=== PATIENT | female | born 1955 | race American Indian/Alaskan Native ===

== ENCOUNTER 2016-12-22 12:37 | Inpatient (IN) | payer MEDICAID ==
[2016-12-22 13:59] LABS: BASO % 0.4 % (0.0-2.0); EOS % 0.7 % (0.0-4.0); HEMATOCRIT 38.3 % (34.0-47.0); LYMPH # 0.6 K/uL (1.0-4.3); LYMPH % 8.1 % (20.0-40.0); MEAN CELL VOLUME 102.6 fL (81.0-99.0); MEAN CORPUSCULAR HEMOGLOBIN 33.8 pg (27.0-31.0); MEAN PLATELET VOLUME 8.6 fL (7.2-11.7); MONO # 0.1 K/uL (0.0-0.8); MONO % 1.6 % (0.0-10.0); PLATELET COUNT 161 K/uL (130-400); RED CELL DISTRIBUTION WIDTH 23.3 % (11.5-14.5)
[2016-12-22 14:07] LABS: CHLORIDE 101 mmol/L (98-107)
[2016-12-22 14:08] LABS: SODIUM 136 mmol/L (132-148)
[2016-12-22 14:10] LABS: ALB/GLOB RATIO 0.6 (1.0-2.1); ALKALINE PHOSPHATASE 139 U/L (38-126); AST/SGOT 126 U/L (14-36); BILIRUBIN,TOTAL 9.5 mg/dL (0.2-1.3); CARBON DIOXIDE 17 mmol/L (22-30); GFR AFRICAN-AMERICAN > 60; TOTAL PROTEIN 7.5 g/dL (6.3-8.3)
[2016-12-22 14:11] LABS: ALT/SGPT 79 U/L (9-52); BLOOD UREA NITROGEN 18 mg/dL (7-17); GLUCOSE,RANDOM 95 mg/dL (65-105); PHOSPHOROUS 3.9 mg/dL (2.5-4.5); POTASSIUM 5.4 mmol/L (3.6-5.2)
[2016-12-22] MEDS ORDERED: Iodixanol 320 MG/ML 200 ML BOTTLE IV ONE (14:12)
[2016-12-22 14:28] LABS: T4 2.17 ug/dL (5.5-11.0)
[2016-12-22 14:32] LABS: NEUTROPHIL 85 % (50-75); REACTIVE LYMPHOCYTES 1 % (0-0); TOTAL CELLS COUNTED 100
--- NOTE | 2016-12-22 14:33 | CT ---
PROCEDURE: CT HEAD WITHOUT CONTRAST. HISTORY: Fatigue, confusion, h/o CVA with right deficits. COMPARISON: None available. TECHNIQUE: Axial computed tomography images were obtained through the head/brain without intravenous contrast. Radiation dose: Total exam DLP = 604.97 mGy-cm. FINDINGS: HEMORRHAGE: No intracranial hemorrhage. BRAIN: Encephalomalacia at the left temporal parietal lobe consistent with old left MCA infarct. Moderate atrophy is noted. Oolv-[id number]-[id number] white matter changes likely related to chronic microvascular ischemic disease. VENTRICLES: Slightly dilated ventricles. Persistent septum bolus ED on is also noted. CALVARIUM: Unremarkable. PARANASAL SINUSES: Unremarkable as visualized. No significant inflammatory changes. MASTOID AIR CELLS: Unremarkable as visualized. No inflammatory changes. OTHER FINDINGS: None. IMPRESSION: No evidence of acute intracranial hemorrhage acute territorial infarct mass effect or midline shift. Moderate-size encephalomalacia at the left temporal parietal lobe suggestive of chronic left MCA territory infarct. Moderate atrophy and white matter changes.
[2016-12-22 14:40] LABS: INR 1.7
[2016-12-22 14:41] LABS: THYROID STIMULATING HORMONE 2.03 mIU/L (0.46-4.68)
[2016-12-22 15:03] LABS: MAGNESIUM 2.1 mg/dL (1.6-2.3)
[2016-12-22] MEDS ORDERED: Sodium Chloride 0.9% 1,000 ML IV ONE (15:23)
[2016-12-22 15:53] LABS: RBC URINE 1 /hpf (0-3); URINE BACTERIA RARE (<OCC); URINE BILIRUBIN 1+ (NEGATIVE); URINE BLOOD NEGATIVE (NEGATIVE); URINE COLOR Amber (YELLOW); URINE GLUCOSE (UA) NORMAL (Normal); URINE KETONE NEGATIVE (NEGATIVE); URINE LEUKOCYTE ESTERASE 2+ Leu/uL (Negative); URINE PROTEIN 1+ mg/dL (NEGATIVE); WBC CLUMPS OCC /hpf; WBC URINE 11 /hpf (0-5)
[2016-12-22 15:55] LABS: BILIRUBIN,DIRECT 7.2 mg/dL (0.0-0.4)
[2016-12-22 16:18] LABS: ABG ALLEN TEST A; DRAW SITE LR
--- NOTE | 2016-12-22 16:35 | CT ---
PROCEDURE: CT Abdomen and Pelvis without intravenous contrast HISTORY: Pain, jaundice COMPARISON: None. TECHNIQUE: Without contrast.. Contrast Dose: 0 Radiation dose: Total exam DLP = 462.71 mGy-cm. FINDINGS: LOWER THORAX: Small to moderate right pleural effusion. Minimal right lower lobe compressive atelectasis. AICD noted. LIVER: Mild hepatomegaly. Diffusely diminished attenuation of the liver consistent with fatty infiltration. No mass. No biliary dilatation. GALLBLADDER AND BILE DUCTS: Unremarkable. PANCREAS: Unremarkable. No gross lesion or ductal dilatation. SPLEEN: Normal size. 2.3 cm with rounded low-attenuation lesion, nonspecific. Most likely hemangioma or lymphangioma. ADRENALS: Unremarkable. No mass. KIDNEYS AND URETERS: Numerous small peripheral bilateral rounded hyperdense lesions most likely hyperdense cysts. Correlate with ultrasound. Probable low-density cyst, 1.1 cm, left lower pole. No calculus or hydronephrosis. VASCULATURE: Unremarkable. No aortic aneurysm. BOWEL: Unremarkable. No obstruction. No gross mural thickening. APPENDIX: Unremarkable. Normal appendix. PERITONEUM: Trace ascites. Mild nonspecific presacral edema. LYMPH NODES: Unremarkable. No enlarged lymph nodes. BLADDER: Unremarkable. REPRODUCTIVE: 1.5 cm partially exophytic rounded hyperdense lesion arising from the anterior uterus, likely fibroids. Correlate with ultrasound. No pelvic mass. BONES: No acute fracture. OTHER FINDINGS: Mild generalized anasarca. IMPRESSION: Small to moderate right pleural effusion. Trace ascites. Nonspecific presacral edema. Mild generalized anasarca. Mild hepatomegaly with fatty infiltration of the liver. No evidence of biliary obstruction. No evidence of cholecystitis. Mild nonspecific presacral edema, possibly related generalized anasarca. Additional minor findings as above.
[2016-12-22] MEDS ORDERED: cefTRIAXone IV 1 gm in Dextros 50 ML IVPB ONE ×2 (17:00→18:27)
--- NOTE | 2016-12-22 17:00 | RAD ---
PROCEDURE: CHEST RADIOGRAPH, 1 VIEW HISTORY: SOB COMPARISON: None available. FINDINGS: LUNGS: Extensive right upper lobe opacity consistent with pneumonia. No volume loss. Left base obscured by AICD module. PLEURA: No pneumothorax or pleural fluid seen. CARDIOVASCULAR: AICD. No cardiomegaly. OSSEOUS STRUCTURES: No significant abnormalities. VISUALIZED UPPER ABDOMEN: Normal. OTHER FINDINGS: None. IMPRESSION: Extensive right upper lobe infiltrate.
[2016-12-22] MEDS ORDERED: Azithromycin 500mg/250ML NS 250 ML IVPB SCH (17:15)
--- NOTE | 2016-12-22 17:28 | C.PDOC ---
Time Seen by Provider: 12/22/16 13:16 Chief Complaint (Nursing): Weakness/Neurological Deficit History Per: Patient, Family Onset/Duration Of Symptoms: Days (about 1 month), Gradual Current Symptoms Are (Timing): Worse Associated Symptoms Preceding Syncopal Episode: Lightheadedness, Worse With Standing Possible Causative Factor(s): Decreased PO Intake Severity: Severe Additional History Per: Prior Records - Symptoms Of CVA Associated Symptoms: Decreased Ability To Walk Recent Head Trauma: No Past Medical History Reviewed: Historical Data, Nursing Documentation, Vital Signs Vital Signs: Last Vital Signs Temp 97.1 F L 12/22/16 16:48 Pulse 87 12/22/16 16:48 Resp 22 12/22/16 16:48 BP 125/85 12/22/16 16:48 Pulse Ox 97 12/22/16 16:48 - Medical History PMH: CVA (affecting right side of body) Other PMH: Lupus Surgical History: Pacemaker Family History: States: Unknown Family Hx - Social History Hx Alcohol Use: No Hx Substance Use: No - Immunization History Hx Tetanus Toxoid Vaccination: No Hx Influenza Vaccination: No Hx Pneumococcal Vaccination: No Review Of Systems Except As Marked, All Systems Reviewed And Found Negative. Constitutional: Positive for: Fever (?), Weakness, Malaise Cardiovascular: Negative for: Chest Pain Respiratory: Positive for: Shortness of Breath. Negative for: Hemoptysis Gastrointestinal: Positive for: Abdominal Pain Musculoskeletal: Negative for: Neck Pain Skin: Negative for: Rash Neurological: Negative for: Seizures Physical Exam - Physical Exam Appears: Chronically Ill Skin: Warm, Dry, Jaundice Head: Atraumatic, Normacephalic Eye(s): bilateral: PERRL, EOMI, Scleral Icterus Oral Mucosa: Dry Neck: Normal ROM, Supple Cardiovascular: Rhythm Regular Respiratory: Normal Breath Sounds, Other (tachypnea) Gastrointestinal/Abdominal: Soft, Tenderness (nonspecific) Extremity: Normal ROM Neurological/Psych: No Normal Motor (decreased on right side compaired to left ( old)), No Normal Sensation (decreased on right side compaired to left (old)) Disoriented To: Time Gait: Unable To Assess ED Course And Treatment - Laboratory Results Result Diagrams: 12/22/16 13:51 12/22/16 13:51 Lab Interpretation: Abnormal Interpretation Of Abnormal: Direct hyperbilirubinemia. ECG: Interpreted By Me, Viewed By Me ECG Rhythm: Sinus Rhythm, Nonspecific Changes ECG Interpretation: No Acute Changes Rate From EC O2 Sat by Pulse Oximetry: 92 Pulse Ox Interpretation: Abnormal Interpretation Of Abnormal: Hypoxia on RA - Radiology CXR: Interpreted by Me, Viewed By Me CXR Interpretation: Yes: Infiltrates (RUL consolidation) - CT Scan/US CT head Other Rad Studies (CT/US): Read By Radiologist, Radiology Report Reviewed CT/US Interpretation: IMPRESSION: No evidence of acute intracranial hemorrhage acute territorial infarct mass effect or midline shift. Moderate-size encephalomalacia at the left temporal parietal lobe suggestive of chronic left MCA territory infarct. Moderate atrophy and white matter changes. CT abd/pelv Other Rad Studies (CT/US): Read By Radiologist, Radiology Report Reviewed CT/US Interpretation: IMPRESSION: Small to moderate right pleural effusion. Trace ascites. Nonspecific presacral edema. Mild generalized anasarca. Mild hepatomegaly with fatty infiltration of the liver. No evidence of biliary obstruction. No evidence of cholecystitis. Mild nonspecific presacral edema, possibly related generalized anasarca. Additional minor findings as above. Progress - Interventions Interventions:: Observation, Intravenous fluid, Oxygen - Medications Administered Intravenous: Other (Abx) - Data Reviewed Data Reviewed: Lab, Diagnostic imaging, EKG, Old records - Patient Status Patient status: Partially improved - Continuity of Care Discussed patient case with:: Patient, Family-HIPPA compliant, ED Nurse, Covering for PMD - Patient Plan Patient Plan: Admission Disposition Discussed With : Jarrod Rice Comment: He accepted pt on hospitalist service. Doctor Will See Patient In The: Hospital Counseled Patient/Family Regarding: Studies Performed, Diagnosis - Disposition Disposition: HOSPITALIZED Disposition Time: 17:32 Condition: SERIOUS - Clinical Impression Clinical Impression: Pneumonia, Jaundice, Weakness
[2016-12-22] MEDS ORDERED: Azithromycin 500mg/250ML NS 250 ML IVPB ONE (18:28)
--- NOTE | 2016-12-22 19:39 | CP.PCM.HP ---
History of Present Illness - History of Present Illness History of Present Illness: CC: "I'm here because of my pacemaker, short of breath" 61 year old female with PMHx of lupus, pacemaker, stroke with left sided deficit , HTN presents to the emergency room with shortness of breath. Patient was brought in by a friend, who is not at bedside at this time. History as per patient, who is a poor historian. Admits to SOB and dry cough for unknown duration of time. She admits to "having trouble" with her stomach for the past 3 -4 months. She states she has been having a lot of nausea and vomiting after she eats. Denies fevers, chills. She also has scratches on her arms from her cat that lives in her apartment with her. She has 3 children who she is estranged from. She has no chest pain or palpitations today. Admits to abdominal pain from time to time. She also reports pain when she urinates. PMD: Dr. Marcos Personal Cardio: Dr. Cami Rubio Personal Rheum: Dr. Artemio Reynaga PMHx:upus, pacemaker, stroke with left sided deficit, HTN. SHx: denies Family Hx: denies Allergies: NKDA Social: Denies tobacco, alcohol, illicit drug use Medications: Folic Acid, MV, Gabapentin 100 mg PO BID, Omeprazole 20 mg PO daily , Tramadol 50 mg PO BID, Sertraline 50 mg PO daily, Amlodipine 5 mg PO daily. Present on Admission - Present on Admission Any Indicators Present on Admission: No Review of Systems - Constitutional Constitutional: Weakness. absent: Chills, Fever - EENT Eyes: absent: Blurred Vision, Change in Vision - Cardiovascular Cardiovascular: Dyspnea, Dyspnea on Exertion. absent: Chest Pain, Chest Pain with Activity, Diaphoresis - Respiratory Respiratory: Cough, Dyspnea. absent: Hemoptysis, Wheezing - Gastrointestinal Gastrointestinal: Abdominal Pain, Nausea, Vomiting. absent: Bloating, Constipation, Diarrhea - Genitourinary Genitourinary: Difficulty Urinating, Dysuria - Musculoskeletal Musculoskeletal: absent: Back Pain, Numbness, Tingling - Integumentary Integumentary: absent: Rash, Wounds - Neurological Neurological: Frequent Falls, Weakness. absent: Dizziness, Headaches, Syncope - Psychiatric Psychiatric: absent: Anxiety - Endocrine Endocrine: Fatigue. absent: Palpitations - Hematologic/Lymphatic Hematologic: absent: Easy Bleeding, Easy Bruising Past Patient History - Past Social History Smoking Status: Never Smoked - CARDIAC Hx Pacemaker: Yes - NEUROLOGICAL HX Cerebrovascular Accident: Yes (RT side deficit) - PSYCHIATRIC Hx Substance Use: No Meds Allergies/Adverse Reactions: Allergies Allergy/AdvReac Type Severity Reaction Status Date / Time No Known Allergies Allergy Verified 12/22/16 13:20 Physical Exam - Constitutional Appears: No Acute Distress, Older Than Stated Age, Chronically Ill - Head Exam Head Exam: NORMAL INSPECTION, NORMOCEPHALIC - Eye Exam Eye Exam: EOMI, Normal appearance - ENT Exam ENT Exam: Mucous Membranes Moist - Neck Exam Neck exam: Positive for: Full Rom, Normal Inspection - Respiratory Exam Respiratory Exam: Clear to Auscultation Bilateral, NORMAL BREATHING PATTERN - Cardiovascular Exam Cardiovascular Exam: REGULAR RHYTHM, +S1, +S2 - GI/Abdominal Exam GI & Abdominal Exam: Normal Bowel Sounds, Soft, Tenderness. absent: Distended, Guarding - Extremities Exam Extremities exam: Positive for: full ROM, normal inspection. Negative for: pedal edema - Back Exam Back exam: NORMAL INSPECTION - Neurological Exam Neurological exam: Alert, Oriented x3 - Psychiatric Exam Psychiatric exam: Normal Affect, Normal Mood - Skin Skin Exam: Dry, Normal Color, Warm Additional comments: scratches over b/l forearms and upper back (from patient's cat) Results - Vital Signs Recent Vital Signs: Last Vital Signs Temp 97.1 F L 12/22/16 16:48 Pulse 87 12/22/16 16:48 Resp 22 12/22/16 16:48 BP 125/85 12/22/16 16:48 Pulse Ox 92 L 12/22/16 17:33 - Labs Result Diagrams: 12/22/16 13:51 12/22/16 13:51 Assessment & Plan (1) Pneumonia Assessment and Plan: CXR on admission showed extensive RUL infiltrate. Patient with PCO2 of 18 on admission and Tachypneic. Breathing and sats improved on NC. Patient with history of vomiting, consider aspiration pneumonia. Continue NC. Azithromycin IVPB Rocephin IVPB Status: Acute (2) Dyspnea Assessment and Plan: Sat in the 90's on room air, improved on NC. Likely secondary to pneumonia. f/u YOUSUF panel EKG on admission showed Sinus Rhythm [address] Changes. Patient with elevated ProBNP. f/u 2D ECHO Status: Acute (3) Weakness Assessment and Plan: Likely debilitated from ongoing infectious process. Patient also with history of CVA and residual weakness. States she cannot ambulate without assistance. PT/OT Fall risk protocol Status: Acute (4) Hyperbilirubinemia Assessment and Plan: T. Hollis of 9.5, Direct Hollis of 7.2, GGT 126 AST 126/ALT 79 on admission. GI consult placed- Dr. Prasad- help appreciated NPO for now f/u RUQ US with doppler Status: Acute (5) Abdominal pain Assessment and Plan: GI consult placed- Dr. Prasad- help appreciated NPO for now T. Hollis of 9.5, Direct Hollis of 7.2, GGT 126 AST 126/ALT [address] Abdomen and Pelvis w/o Po or IV contrast : Small to moderate right pleural effusion. Trace ascites. Nonspecific presacral edema. Mild generalized anasarca. Mild hepatomegaly with fatty infiltration of the liver. No evidence of biliary obstruction. No evidence of cholecystitis. Mild nonspecific presacral edema, possibly related generalized anasarca. Additional minor findings as above. f/u RUQ US with doppler Status: Acute (6) Nausea & vomiting Assessment and Plan: Zofran PRN Status: Acute (7) Pacemaker Assessment and Plan: Patient with unknown cardiac history. Pro BNP elevated. f/u ECHO Patient follows with Dr. Rubio as outpatient. Status: Acute (8) Lupus (systemic lupus erythematosus) Assessment and Plan: Resume home meds: Plaquenil 200 mg PO BID MV Folic Acid 1 mg PO daily Patient follows with Dr. Reynaga as outpatient. Status: Acute (9) Abnormal thyroid blood test Assessment and Plan: T3 and T3 are low on admission with normal TSH. Follow repeat thyroid function tests in the AM. Status: Acute (10) HTN (hypertension) Assessment and Plan: Resume home med: Amlodipine 5 mg PO daily Status: Acute (11) Prophylactic measure Assessment and Plan: Heparin SC Q8H Pepcid 20 mg PO daily Status: Acute
[2016-12-22 21:26] LABS: ALCOHOL SERUM < 10 mg/dl (0-10)
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
[2016-12-23 07:23] LABS: BASO % 0.6 % (0.0-2.0); LYMPH % 16.5 % (20.0-40.0); MEAN CELL VOLUME 102.4 fL (81.0-99.0); MEAN CORPUSCULAR HEMOGLOBIN 33.6 pg (27.0-31.0); MEAN CORPUSCULAR HGB CONC 32.8 g/dL (33.0-37.0); MEAN PLATELET VOLUME 8.9 fL (7.2-11.7); MONO # 0.4 K/uL (0.0-0.8); MONO % 7.3 % (0.0-10.0); NRBC % 0.7 % (0.0-2.0); RED CELL DISTRIBUTION WIDTH 22.9 % (11.5-14.5); WHITE BLOOD COUNT 5.9 K/uL (4.8-10.8)
[2016-12-23 07:29] LABS: CHLORIDE 105 mmol/L (98-107); POTASSIUM 4.6 mmol/L (3.6-5.2); SODIUM 137 mmol/L (132-148)
[2016-12-23 07:31] LABS: ALB/GLOB RATIO 0.7 (1.0-2.1); AST/SGOT 120 U/L (14-36); BILIRUBIN,TOTAL 8.2 mg/dL (0.2-1.3); CARBON DIOXIDE 14 mmol/L (22-30); GFR AFRICAN-AMERICAN > 60; TOTAL PROTEIN 6.5 g/dL (6.3-8.3)
[2016-12-23 07:32] LABS: ALKALINE PHOSPHATASE 121 U/L (38-126); ALT/SGPT 78 U/L (9-52); BLOOD UREA NITROGEN 24 mg/dL (7-17); CALCIUM 7.9 mg/dl (8.6-10.4); GLUCOSE,RANDOM 103 mg/dL (65-105); PHOSPHOROUS 4.6 mg/dL (2.5-4.5)
[2016-12-23 08:44] LABS: FT3 2.74 pg/mL (2.77-5.27)
[2016-12-23 08:58] LABS: THYROID STIMULATING HORMONE 1.34 mIU/L (0.46-4.68)
[2016-12-23] MEDS ORDERED: Iodixanol 320 MG/ML 100 ML BOTTLE IV ONE (09:03)
--- NOTE | 2016-12-23 09:10 | CP.PCM.PN ---
<Vimal Bolden - Last Filed: 12/23/16 15:28> Subjective - Date & Time of Evaluation Date of Evaluation: 12/23/16 Time of Evaluation: 09:08 - Subjective Subjective: PGY-1 note for medicine service Pt seen and examined at bedside. She was observed to be on BiPAP and resting comfortably. Pt states that she feels much improved since yesterday. She no longer feels short of breath. She also says that currently her stomach does not hurt, but admits that it usually gets worse with eating. Denies any fevers, chills, chest pain, sob, nausea or vomiting. Objective - Vital Signs/Intake and Output Vital Signs (last 24 hours): Temp Pulse Resp BP Pulse Ox 97.2 F L 75 18 124/50 L 100 12/23/16 08:29 12/23/16 08:29 12/23/16 08:29 12/23/16 08:29 12/23/16 08:29 - Medications Medications: Current Medications Amlodipine Besylate (Norvasc) 5 mg PO DAILY [facility] Famotidine (Pepcid) 20 mg PO BID [facility] Folic Acid (Folic Acid) 1 mg PO DAILY [facility] Gabapentin (Neurontin) 100 mg PO BID [facility] Heparin Sodium (Porcine) (Heparin) 5,000 units SC Q8 [facility] Last Admin: 12/23/16 06:21 Dose: 5,000 units Hydroxychloroquine Sulfate (Plaquenil) 200 mg PO BID [facility] Azithromycin (Zithromax 500mg In Ns Addvantage) 250 mls @ 166.667 mls/hr IVPB STAT [facility] Last Admin: 12/22/16 18:45 Dose: 166.667 mls/hr Sodium Chloride (Sodium Chloride 0.9%) 1,000 mls @ 60 mls/hr IV .[id number] [facility] Azithromycin 500 mg/ Sodium (Chloride) 250 mls @ 250 mls/hr IVPB DAILY [facility] Ceftriaxone Sodium 1 gm/ (Sodium Chloride) 100 mls @ 100 mls/hr IVPB DAILY [facility] Multivitamins (Hexavitamin) 1 tab PO DAILY [facility] Ondansetron HCl (Zofran Inj) 4 mg IVP Q6 PRN PRN Reason: Nausea/Vomiting Sertraline HCl (Zoloft) 50 mg PO DAILY [facility] - Labs Labs: 12/23/16 06:50 12/23/16 06:50 PT 18.8 SECONDS (9.7-12.2) H 12/22/16 14:29 INR 1.7 12/22/16 14:29 APTT 26 SECONDS (21-34) 12/22/16 14:29 - Constitutional Appears: Non-toxic, No Acute Distress - Head Exam Head Exam: ATRAUMATIC, NORMOCEPHALIC - Eye Exam Eye Exam: Normal appearance Pupil Exam: PERRL - ENT Exam ENT Exam: Mucous Membranes Moist - Respiratory Exam Respiratory Exam: Clear to Ausculation Bilateral, NORMAL BREATHING PATTERN - Cardiovascular Exam Cardiovascular Exam: +S1, +S2 - GI/Abdominal Exam GI & Abdominal Exam: Soft, Normal Bowel Sounds - Neurological Exam Neurological Exam: Alert, Awake - Skin Skin Exam: Dry, Warm Assessment and Plan - Assessment and Plan (Free Text) Assessment: Pneumonia - CXR on admission showed extensive RUL infiltrate. - Patient with PCO2 of 18 on admission and Tachypneic. - Breathing and sats improved on NC. - Patient with history of vomiting, consider aspiration pneumonia. - Continue NC as needed - Azithromycin IVPB - Rocephin IVPB Abdominal pain - GI consult placed- Dr. Prasad- help appreciated - Per GI - Hepatitis panel, AMA (r/o PBC), Anti-SM and LKM Ab (r/o autoimmune hep). Will consider EUS if work up is negative and direct bili stays elevated - FLD - T. Hollis of 9.5, Direct Hollis of 7.2, GGT 126 AST 126/ALT 79 on admission. - Repeat AM labs show elevated T Bili at 8.2 still - CT Abdomen and Pelvis w/o Po or IV contrast : Small to moderate right pleural effusion. Trace ascites. Nonspecific presacral edema. Mild generalized anasarca. Mild hepatomegaly with fatty infiltration of the liver. No evidence of biliary obstruction. No evidence of cholecystitis. Mild nonspecific presacral edema, possibly related generalized anasarca. Additional minor findings as above. - RUQ US 12/23 - Right renal cysts. Incidental note is made of small right pleural effusion. Echogenic liver may be seen in setting of hepatic parenchymal disease or fatty infiltration. Small perihepatic ascites. Small fluid is noted by the gallbladder fossa. Gallbladder wall thickening/ pericholecystic edema without evidence of gallstones. Negative sonographic Hutchinson's sign as assessed by the hip hop performers. No portal vein thrombosis UTI - UA positive. Patient is symptomatic. - urine Cx /7 - gram neg rods - Rocephin IVPB Dyspnea - Sat in the 90's on room air, improved on NC. - Likely secondary to pneumonia. - YOUSUF panel negative - EKG on admission showed Sinus Rhythm [address] Changes. - Patient with elevated ProBNP. - f/u 2D ECHO - pending read Weakness - Likely debilitated from ongoing infectious process. - Patient also with history of CVA and residual weakness. States she cannot ambulate without assistance. - PT/OT - recommends TCU or [facility] - Fall risk protocol - Head CT: No evidence of acute intracranial hemorrhage acute territorial infarct mass effect or midline shift. Moderate-size encephalomalacia at the left temporal parietal lobe suggestive of chronic left MCA territory infarct. Moderate atrophy and white matter changes. Nausea & vomiting - Zofran PRN Pacemaker - Patient with unknown cardiac history. - Pro BNP elevated. - ECHO pending read - Patient follows with Dr. Rubio ([phone]) as outpatient. Hx of Lupus (systemic lupus erythematosus) - Resume home meds: Plaquenil 200 mg PO BID [facility] Folic Acid 1 mg PO daily - Patient follows with Dr. Reynaga as outpatient. Abnormal thyroid blood test - T3 and T3 are low on admission with normal TSH. - Follow repeat thyroid function tests in the AM. HTN (hypertension) - Resume home med: - Amlodipine 5 mg PO daily Prophylactic measure - Heparin SC Q8H - Pepcid 20 mg PO daily <Jarrod Rice - Last Filed: 12/24/16 07:49> Objective - Vital Signs/Intake and Output Vital Signs (last 24 hours): Temp Pulse Resp BP Pulse Ox 97.3 F L 81 20 106/75 100 12/23/16 23:10 12/23/16 23:30 12/23/16 23:10 12/23/16 23:10 12/23/16 23:10 - Medications Medications: Current Medications Amlodipine Besylate (Norvasc) 5 mg PO DAILY [facility] Last Admin: 12/23/16 10:22 Dose: 5 mg Famotidine (Pepcid) 20 mg PO BID [facility] Last Admin: 12/23/16 17:56 Dose: 20 mg Folic Acid (Folic Acid) 1 mg PO DAILY [facility] Last Admin: 12/23/16 10:22 Dose: 1 mg Gabapentin (Neurontin) 100 mg PO BID [facility] Last Admin: 12/23/16 17:56 Dose: 100 mg Heparin Sodium (Porcine) (Heparin) 5,000 units SC Q8 [facility] Last Admin: 12/24/16 05:33 Dose: 5,000 units Hydroxychloroquine Sulfate (Plaquenil) 200 mg PO BID [facility] Last Admin: 12/23/16 17:56 Dose: 200 mg Azithromycin 500 mg/ Sodium (Chloride) 250 mls @ 250 mls/hr IVPB DAILY [facility] Last Admin: 12/23/16 11:15 Dose: 250 mls/hr Ceftriaxone Sodium 1 gm/ (Sodium Chloride) 100 mls @ 100 mls/hr IVPB DAILY [facility] Last Admin: 12/23/16 10:21 Dose: 100 mls/hr Multivitamins (Hexavitamin) 1 tab PO DAILY [facility] Last Admin: 12/23/16 10:22 Dose: 1 tab Ondansetron HCl (Zofran Inj) 4 mg IVP Q6 PRN PRN Reason: Nausea/Vomiting Last Admin: 12/23/16 12:39 Dose: 4 mg Sertraline HCl (Zoloft) 50 mg PO DAILY [facility] Last Admin: 12/23/16 10:23 Dose: 50 mg - Labs Labs: 12/24/16 07:04 12/23/16 06:50 PT 18.8 SECONDS (9.7-12.2) H 12/22/16 14:29 INR 1.7 12/22/16 14:29 APTT 26 SECONDS (21-34) 12/22/16 14:29 Attending/Attestation - Attestation I have personally seen and examined this patient.: Yes I have fully participated in the care of the patient.: Yes I have reviewed all pertinent clinical information, including history, physical exam and plan: Yes Notes (Text): Patient with history of SLE (reportedly causing only arthralgias, meds unclear, will call pharmacy), previous CVA (unclear time frame), s/p AICD placement (2007 ), presented with sob, weakness and abd pain, found to have RUL PNA and grossly abnormal LFT's; Was on BIPAP overnight due to sob but indication for it is unclear; appears comfortable this morning on NC; Poor historian; has appointment cards with dates from last year, nothing since past 4 months; unclear f/u with PMD and space technologist, will call them; CAP being treated with ceftriaxone and zithromax; GI consult appreciated regarding hyperbilirubinemia (direct) as well as elevated transaminases and lipase; Abd US not showing any biliary obstruction or CBD dilatation; patent portal vein; patient should ideally have MRCP per GI but AICD is contraindication, may need endoscopic US to better assess for obstructing mass; also high on differential is congestive hepatopathy (echo report pending but measurements show low EF and high RVSP); Functional status is also questionable with patient reporting living alone but gets help from a friend to even walk; -continue abx -continue plaquenil (doesn't report being on methotrexate but has recent prescription receipt, will ascertain further) -stop IVF, will consider starting low dose diuretics -PT eval -cardio consult
[2016-12-23 09:20] LABS: T3 UPTAKE > 65.0 % (23.0-41.0)
[2016-12-23] MEDS: Sodium Chloride 0.9% 1,000 ML IV SCH ×2 (09:29→11:10)
[2016-12-23] MEDS ORDERED: Multiple Vitamins Tab PO SCH (10:00)
[2016-12-23] MEDS: Multiple Vitamins Tab PO SCH (10:22)
--- NOTE | 2016-12-23 10:45 | US ---
HISTORY: Arabella Shafer 11, Hx of stroke COMPARISON: CT abdomen and pelvis without oral or IV contrast performed 12/22/16 TECHNIQUE: Sonographic evaluation of the right upper quadrant of the abdomen. FINDINGS: LIVER: Measures 15.5 cm in length. Echogenic liver may be seen in setting of hepatic parenchymal disease or fatty infiltration. No focal hepatic mass evident. The main portal vein appears patent with normal directional flow. No intrahepatic bile duct dilatation. Small perihepatic ascites. GALLBLADDER: No gallstones. No gallbladder wall thickening. Mild gallbladder wall thickening/ edema measuring approximately 5 mm. Negative sonographic Hutchinson's sign as assessed by the biomedical instrument technician. COMMON BILE DUCT: Measures 4 mm. PANCREAS: The pancreas is not well visualized. RIGHT KIDNEY: Measures 10.4 x 3.8 x 4.3 cm. No obstructing calculus or hydronephrosis. Renal cysts. For example: 0.7 x 0.6 x 0.6 cm midpole cyst. Within the lower pole, 0.8 x 0.6 x 0.6 cm and 1.2 x 1.0 x 1.1 cm cysts. AORTA: Limited visualization appears grossly unremarkable. IVC: Limited visualization appears grossly unremarkable. OTHER FINDINGS: Incidental note is made of small right pleural effusion. IMPRESSION: Right renal cysts. Incidental note is made of small right pleural effusion. Echogenic liver may be seen in setting of hepatic parenchymal disease or fatty infiltration. Small perihepatic ascites. Small fluid is noted by the gallbladder fossa. Gallbladder wall thickening/ pericholecystic edema without evidence of gallstones. Negative sonographic Hutchinson's sign as assessed by the biomedical instrument technician.
[2016-12-23] MEDS: Azithromycin 500 MG in Sodium Chloride 0.9% 250 ML IVPB SCH (11:15)
--- NOTE | 2016-12-23 11:30 | RAD ---
HISTORY: Dyspnea COMPARISON: Chest x-ray performed 12/22/16 TECHNIQUE: Chest, one view. FINDINGS: Examination limited by habitus. LUNGS: Worsening right upper lobe opacities suspected to reflect pneumonia. Please note that chest x-ray has limited sensitivity for the detection of pulmonary masses. PLEURA: No significant pleural effusion identified. No definite pneumothorax . CARDIOVASCULAR: Cardiomegaly. Single lead left-sided AICD. OSSEOUS STRUCTURES: No acute osseous abnormality is detected. VISUALIZED UPPER ABDOMEN: Unremarkable. OTHER FINDINGS: None. IMPRESSION: Worsening right upper lobe infiltrate. Cardiomegaly. Single lead AICD.
[2016-12-23 14:18] LABS: IMMUNOGLOBULIN M 66.3 mg/dL (40.0-230.0)
[2016-12-23 14:19] LABS: IMMUNOGLOBULIN A 510.1 mg/dL (70.0-400.0)
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
[2016-12-24 07:14] LABS: BASO % 0.2 % (0.0-2.0); EOS % 0.1 % (0.0-4.0); HEMATOCRIT 34.7 % (34.0-47.0); MEAN CELL VOLUME 102.2 fL (81.0-99.0); MEAN CORPUSCULAR HEMOGLOBIN 34.3 pg (27.0-31.0); MEAN CORPUSCULAR HGB CONC 33.6 g/dL (33.0-37.0); MEAN PLATELET VOLUME 9.2 fL (7.2-11.7); MONO # 0.6 K/uL (0.0-0.8); MONO % 10.4 % (0.0-10.0); NRBC % 1.6 % (0.0-2.0); WHITE BLOOD COUNT 5.6 K/uL (4.8-10.8)
[2016-12-24 07:32] LABS: CHLORIDE 106 mmol/L (98-107)
[2016-12-24 07:33] LABS: POTASSIUM 4.4 mmol/L (3.6-5.2); SODIUM 143 mmol/L (132-148)
[2016-12-24 07:35] LABS: ALB/GLOB RATIO 0.6 (1.0-2.1); AST/SGOT 163 U/L (14-36); BILIRUBIN,TOTAL 6.6 mg/dL (0.2-1.3); BLOOD UREA NITROGEN 28 mg/dL (7-17); CARBON DIOXIDE 21 mmol/L (22-30); GFR AFRICAN-AMERICAN > 60; TOTAL PROTEIN 6.5 g/dL (6.3-8.3)
[2016-12-24 07:36] LABS: ALKALINE PHOSPHATASE 110 U/L (38-126); ALT/SGPT 105 U/L (9-52); CALCIUM 8.3 mg/dl (8.6-10.4); GLUCOSE,RANDOM 98 mg/dL (65-105)
--- NOTE | 2016-12-24 08:41 | CARD ---
APPROVED REPORT EKG Measurement Heart [id number] UT [id number] <Conclusion> Normal sinus rhythm Possible Left atrial enlargement Left axis deviation Nonspecific T wave abnormality Abnormal ECG
--- NOTE | 2016-12-24 09:38 | CP.PCM.PN ---
Subjective - Date & Time of Evaluation Date of Evaluation: 12/24/16 Time of Evaluation: 09:36 - Subjective Subjective: PGY-1 note for medicine service Pt seen and examined at bedside. She states that she feels better than she did yesterday. Denies any current sob. States that she has no abdominal pain as well. Admits to feeling nauseous after she eats/drinks. Denies any fevers, chest pain, headaches or chills. Rapid Response called for shortness of breath Time 13:39 Vitals: BP - stable but then dropped to 66/49 after Lasix given, HR ~100s, pulse ox unobtainable Pt was placed on BiPAP for sob. Pt began to exhibit agonal breathing. She was switched to non-rebreather mask which she tolerated better. She maintained appropriate mentation throughout. However, pt continued to deteriorate and a rapid sequence intubation was initiated by anesthesia staff that were bedside. Pt was also started on Dopamine maximum dose. Systolic BP improved to 85 mmHg. Pt was then transferred to the ICU for further management. Please see ICU consult note for further plan Objective - Vital Signs/Intake and Output Vital Signs (last 24 hours): Temp Pulse Resp BP Pulse Ox 97.5 F L 79 20 112/81 100 12/24/16 08:38 12/24/16 08:38 12/24/16 08:38 12/24/16 08:38 12/24/16 08:38 - Medications Medications: Current Medications Amlodipine Besylate (Norvasc) 5 mg PO DAILY [facility] Last Admin: 12/23/16 10:22 Dose: 5 mg Famotidine (Pepcid) 20 mg PO BID [facility] Last Admin: 12/23/16 17:56 Dose: 20 mg Folic Acid (Folic Acid) 1 mg PO DAILY [facility] Last Admin: 12/23/16 10:22 Dose: 1 mg Furosemide (Lasix) 20 mg PO BID [facility] Gabapentin (Neurontin) 100 mg PO BID [facility] Last Admin: 12/23/16 17:56 Dose: 100 mg Heparin Sodium (Porcine) (Heparin) 5,000 units SC Q8 [facility] Last Admin: 12/24/16 05:33 Dose: 5,000 units Hydroxychloroquine Sulfate (Plaquenil) 200 mg PO BID [facility] Last Admin: 12/23/16 17:56 Dose: 200 mg Azithromycin 500 mg/ Sodium (Chloride) 250 mls @ 250 mls/hr IVPB DAILY [facility] Last Admin: 12/23/16 11:15 Dose: 250 mls/hr Ceftriaxone Sodium 1 gm/ (Sodium Chloride) 100 mls @ 100 mls/hr IVPB DAILY [facility] Last Admin: 12/23/16 10:21 Dose: 100 mls/hr Multivitamins (Hexavitamin) 1 tab PO DAILY [facility] Last Admin: 12/23/16 10:22 Dose: 1 tab Ondansetron HCl (Zofran Inj) 4 mg IVP Q6 PRN PRN Reason: Nausea/Vomiting Last Admin: 12/23/16 12:39 Dose: 4 mg Sertraline HCl (Zoloft) 50 mg PO DAILY [facility] Last Admin: 12/23/16 10:23 Dose: 50 mg - Labs Labs: 12/24/16 07:04 12/24/16 07:04 PT 18.8 SECONDS (9.7-12.2) H 12/22/16 14:29 INR 1.7 12/22/16 14:29 APTT 26 SECONDS (21-34) 12/22/16 14:29 - Constitutional Appears: Non-toxic, No Acute Distress - Head Exam Head Exam: ATRAUMATIC, NORMOCEPHALIC - Eye Exam Eye Exam: Normal appearance - ENT Exam ENT Exam: Mucous Membranes Moist - Respiratory Exam Respiratory Exam: Clear to Ausculation Bilateral, NORMAL BREATHING PATTERN - Cardiovascular Exam Cardiovascular Exam: +S1, +S2 - GI/Abdominal Exam GI & Abdominal Exam: Soft, Normal Bowel Sounds. absent: Tenderness - Neurological Exam Neurological Exam: Alert, Oriented x3 - Skin Skin Exam: Dry, Warm
[2016-12-24] MEDS ORDERED: Iohexol 240 (50 ml) PO ONE (10:00)
[2016-12-24] MEDS: Multiple Vitamins Tab PO SCH (10:28)
[2016-12-24] MEDS: Azithromycin 500 MG in Sodium Chloride 0.9% 250 ML IVPB SCH (10:37)
[2016-12-24] MEDS ORDERED: Sodium Chloride 0.9% 1,000 ML IV SCH (11:30)
--- NOTE | 2016-12-24 12:50 | CP.PCM.CON ---
<SirenaMarquis - Last Filed: 12/24/16 12:38> History of Present Illness - History of Present Illness History of Present Illness: Consult note for Dr Montelongo: 61 F with PMHx of lupus, CHF, ICD, stroke (w/ L sided deficit), HTN presents to the ED with shortness of breath. Pt is a poor historian. She states that lately she has been short of breath and coughing for the past few weeks and states that it is getting worse. She states that her cough is productive with white phelgm. She also complains of generalized abdominal that has been present for past 3-4 months. She complains of nausea and NBNB vomiting which occur after she eats. She currently denies any headaches, dizziness, + nausea, vomiting, f/c , cp, palpitations, sob, + abd pain, urinary or bm changes. PMHx: HTN, Lupus, CHF, ICD, stroke with left sided deficit SHx: denies Family Hx: denies Allergies: NKDA Social: Denies tobacco, alcohol, illicit drug use Medications: Refer to MAR Review of Systems - Review of Systems All systems: reviewed and no additional remarkable complaints except (HPI) Past Patient History - Past Medical History & Family History Past Medical History?: Yes - Past Social History Smoking Status: Never Smoked Alcohol: None Drugs: Denies - CARDIAC Hx Pacemaker: Yes - NEUROLOGICAL HX Cerebrovascular Accident: Yes (RT side deficit) - MUSCULOSKELETAL/RHEUMATOLOGICAL Hx Falls: No - PSYCHIATRIC Hx Substance Use: No Meds Allergies/Adverse Reactions: Allergies Allergy/AdvReac Type Severity Reaction Status Date / Time No Known Allergies Allergy Verified 12/22/16 13:20 - Medications Medications: Current Medications Amlodipine Besylate (Norvasc) 5 mg PO DAILY [facility] Last Admin: 12/24/16 10:26 Dose: 5 mg Famotidine (Pepcid) 20 mg PO BID [facility] Last Admin: 12/24/16 10:37 Dose: 20 mg Folic Acid (Folic Acid) 1 mg PO DAILY [facility] Last Admin: 12/24/16 10:24 Dose: 1 mg Furosemide (Lasix) 20 mg PO BID [facility] Last Admin: 12/24/16 10:26 Dose: 20 mg Gabapentin (Neurontin) 100 mg PO BID [facility] Last Admin: 12/24/16 10:27 Dose: 100 mg Heparin Sodium (Porcine) (Heparin) 5,000 units SC Q8 [facility] Last Admin: 12/24/16 05:33 Dose: 5,000 units Hydroxychloroquine Sulfate (Plaquenil) 200 mg PO BID [facility] Last Admin: 12/24/16 10:27 Dose: 200 mg Azithromycin 500 mg/ Sodium (Chloride) 250 mls @ 250 mls/hr IVPB DAILY [facility] Last Admin: 12/24/16 10:37 Dose: 250 mls/hr Ceftriaxone Sodium 1 gm/ (Sodium Chloride) 100 mls @ 100 mls/hr IVPB DAILY [facility] Last Admin: 12/24/16 10:29 Dose: 100 mls/hr Sodium Chloride (Sodium Chloride 0.9%) 1,000 mls @ 75 mls/hr IV .[id number] [facility] Last Admin: 12/24/16 11:36 Dose: 75 mls/hr Multivitamins (Hexavitamin) 1 tab PO DAILY [facility] Last Admin: 12/24/16 10:28 Dose: 1 tab Ondansetron HCl (Zofran Inj) 4 mg IVP ACHS [facility] Last Admin: 12/24/16 11:37 Dose: 4 mg Sertraline HCl (Zoloft) 50 mg PO DAILY [facility] Last Admin: 12/24/16 10:25 Dose: 50 mg Physical Exam - Constitutional Appears: No Acute Distress - Head Exam Head Exam: ATRAUMATIC, NORMAL INSPECTION, NORMOCEPHALIC - Eye Exam Eye Exam: EOMI, Normal appearance, PERRL Pupil Exam: NORMAL ACCOMODATION, PERRL - ENT Exam ENT Exam: Mucous Membranes Moist, Normal Exam - Neck Exam Neck exam: Positive for: Normal Inspection - Respiratory Exam Respiratory Exam: Clear to Auscultation Bilateral, NORMAL BREATHING PATTERN. absent: Wheezes - Cardiovascular Exam Cardiovascular Exam: REGULAR RHYTHM - GI/Abdominal Exam GI & Abdominal Exam: Normal Bowel Sounds, Soft. absent: Tenderness - Extremities Exam Extremities exam: Positive for: normal inspection - Back Exam Back exam: NORMAL INSPECTION - Neurological Exam Neurological exam: Alert, CN II-XII Intact, Normal Gait, Oriented x3, Reflexes Normal - Psychiatric Exam Psychiatric exam: Normal Affect, Normal Mood - Skin Skin Exam: Dry, Intact, Normal Color, Warm Results - Vital Signs Recent Vital Signs: Last Vital Signs Temp 97.5 F L 12/24/16 08:38 Pulse 79 12/24/16 08:38 Resp 20 12/24/16 08:38 BP 118/80 12/24/16 10:26 Pulse Ox 100 12/24/16 08:38 - Labs Result Diagrams: 12/24/16 07:04 12/24/16 07:04 Labs: Laboratory Results - last 24 hr 12/23/16 12/24/16 13:54 07:04 WBC 5.6 RBC 3.40 L Hgb 11.7 Hct 34.7 MCV 102.2 H MCH 34.3 H MCHC 33.6 RDW 23.0 H Plt Count 165 MPV 9.2 Neut % (Auto) 72.3 Lymph % (Auto) 17.0 L [place] % (Auto) 10.4 H Eos % (Auto) 0.1 Baso % (Auto) 0.2 Neut # 4.1 Lymph # 1.0 H[place]ley # 0.6 Eos # 0.0 Baso # 0.0 Sodium 143 Potassium 4.4 Chloride 106 Carbon Dioxide 21 L Anion Gap 20 BUN 28 H Creatinine 1.1 Est GFR ( Amer) > 60 Est GFR (Non-Af Amer) 51 Random Glucose 98 Calcium 8.3 L Total Bilirubin 6.6 H AST 163 H D ALT 105 H D Alkaline Phosphatase 110 Total Protein 6.5 Albumin 2.4 L Globulin 4.1 H Albumin/Globulin Ratio 0.6 L Ceruloplasmin 48 Lipase 797 H IgG 1775.0 H IgA 510.1 H IgM 66.3 Hepatitis A IgM Ab Negative Hep Bs Antigen Negative Hep B Core IgM Ab Negative Hepatitis C Antibody Negative Assessment & Plan - Assessment and Plan (Free Text) Assessment: 61 F with PMHx of lupus, ICD, stroke (w/ L sided deficit), HTN presents to the ED with shortness of breath and abd pain admitted for CAP, UTI, and abdominal pain. - HR stable aprox 75-80 in past 24 hrs - F/u ICD interrogation - F/u Echo - Cont lasix and amlodipine - CXR on admission showed extensive RUL infiltrate - Cont Rocephin and Azithromycin per medical team - F/u GI recs - GI/ DVT ppx Thank you for the consult. Will follow closely. Case and plan was reviewed and discussed in detail with Dr Montelongo. <Vaishali Montelongo - Last Filed: 01/07/17 17:33> Results - Vital Signs Recent Vital Signs: Last Vital Signs Temp 95 F L 01/07/17 10:20 Pulse 40 L 01/07/17 11:00 Resp 26 H 01/07/17 11:00 BP 30/0 L 01/07/17 10:38 Pulse Ox 52 L 01/07/17 11:00 - Labs Result Diagrams: 01/07/17 06:25 01/07/17 06:25 Labs: Laboratory Results - last 24 hr 01/06/17 01/07/17 01/07/17 17:47 00:24 00:39 WBC RBC Hgb Hct MCV MCH MCHC RDW Plt Count MPV Neut % (Auto) Lymph % (Auto) [place] % (Auto) Eos % (Auto) Baso % (Auto) Neut # Lymph # [place] # Eos # Baso # Puncture Site pCO2 pO2 HCO3 ABG pH ABG Total CO2 ABG O2 Saturation ABG Base Excess ABG Hemoglobin ABG Carboxyhemoglobin POC ABG HHb (Measured) ABG Methemoglobin Billy Test A-a O2 Difference Respiratory Index Hgb O2 Saturation Mechanical Rate FiO2 Tidal Volume PEEP Crit Value Called To Crit Value Called By Crit Value Read Back Blood Gas Notified Time Sodium Potassium Chloride Carbon Dioxide Anion Gap BUN Creatinine Est GFR ( Amer) Est GFR (Non-Af Amer) POC Glucose (mg/dL) 137 H < 20 L* Random Glucose 65 Calcium Phosphorus Magnesium Total Bilirubin AST ALT Alkaline Phosphatase Total Protein Albumin Globulin Albumin/Globulin Ratio Blood Type Antibody Screen 01/07/17 01/07/17 01/07/17 04:30 05:36 06:25 WBC 41.9 H* RBC 2.46 L Hgb 7.6 L Hct 25.5 L MCV 103.5 H MCH 30.7 MCHC 29.7 L RDW 22.7 H Plt Count 16 L* D MPV 9.9 Neut % (Auto) 84.2 H Lymph % (Auto) 11.7 L [place] % (Auto) 3.6 Eos % (Auto) 0.1 Baso % (Auto) 0.4 Neut # 35.3 H Lymph # 4.9 H [place] # 1.5 H Eos # 0.0 Baso # 0.2 Puncture Site Rb pCO2 34 L pO2 69 L HCO3 9.1 L* ABG pH 7.03 L* ABG Total CO2 10.0 L ABG O2 Saturation 97.7 ABG Base Excess -20.2 L ABG Hemoglobin 7.5 L ABG Carboxyhemoglobin 6.0 H POC ABG HHb (Measured) 2.1 ABG Methemoglobin 1.1 Billy Test Na A-a O2 Difference 602.0 Respiratory Index 8.7 Hgb O2 Saturation 90.8 L Mechanical Rate 26 FiO2 100.0 Tidal Volume 550 PEEP 5 Crit Value Called To Marium cueva rn/ccu Crit Value Called By Moises haywood/rt Crit Value Read Back Y Blood Gas Notified Time 450 Sodium 136 Potassium 4.2 Chloride 96 L Carbon Dioxide 10 L* Anion Gap 34 H BUN 16 Creatinine 2.2 H Est GFR ( Amer) 28 Est GFR (Non-Af Amer) 23 POC Glucose (mg/dL) 28 L* Random Glucose 27 L* D Calcium 7.1 L Phosphorus 6.0 H Magnesium 2.1 Total Bilirubin 9.8 H AST 704 H D ALT 197 H D Alkaline Phosphatase 193 H D Total Protein 4.7 L Albumin 1.6 L D Globulin 3.1 Albumin/Globulin Ratio 0.5 L Blood Type Antibody Screen 01/07/17 01/07/17 01/07/17 06:31 08:02 08:29 WBC RBC Hgb Hct MCV MCH MCHC RDW Plt Count MPV Neut % (Auto) Lymph % (Auto) [place] % (Auto) Eos % (Auto) Baso % (Auto) Neut # Lymph # [place] # Eos # Baso # Puncture Site pCO2 pO2 HCO3 ABG pH ABG Total CO2 ABG O2 Saturation ABG Base Excess ABG Hemoglobin ABG Carboxyhemoglobin POC ABG HHb (Measured) ABG Methemoglobin Billy Test A-a O2 Difference Respiratory Index Hgb O2 Saturation Mechanical Rate FiO2 Tidal Volume PEEP Crit Value Called To Crit Value Called By Crit Value Read Back Blood Gas Notified Time Sodium Potassium Chloride Carbon Dioxide Anion Gap BUN Creatinine Est GFR ( Amer) Est GFR (Non-Af Amer) POC Glucose (mg/dL) 248 H 90 Random Glucose Calcium Phosphorus Magnesium Total Bilirubin AST ALT Alkaline Phosphatase Total Protein Albumin Globulin Albumin/Globulin Ratio Blood Type B POSITIVE Antibody Screen Negative 01/07/17 01/07/17 09:18 10:36 WBC RBC Hgb Hct MCV MCH MCHC RDW Plt Count MPV Neut % (Auto) Lymph % (Auto) [place] % (Auto) Eos % (Auto) Baso % (Auto) Neut # Lymph # [place] # Eos # Baso # Puncture Site pCO2 pO2 HCO3 ABG pH ABG Total CO2 ABG O2 Saturation ABG Base Excess ABG Hemoglobin ABG Carboxyhemoglobin POC ABG HHb (Measured) ABG Methemoglobin Billy Test A-a O2 Difference Respiratory Index Hgb O2 Saturation Mechanical Rate FiO2 Tidal Volume PEEP Crit Value Called To Crit Value Called By Crit Value Read Back Blood Gas Notified Time Sodium Potassium Chloride Carbon Dioxide Anion Gap BUN Creatinine Est GFR ( Amer) Est GFR (Non-Af Amer) POC Glucose (mg/dL) 77 117 H Random Glucose Calcium Phosphorus Magnesium Total Bilirubin AST ALT Alkaline Phosphatase Total Protein Albumin Globulin Albumin/Globulin Ratio Blood Type Antibody Screen Attending/Attestation - Attestation I have personally seen and examined this patient.: Yes I have fully participated in the care of the patient.: Yes I have reviewed all pertinent clinical information: Yes Notes (Text): 01/07/17 17:33 pt with severe cmp vt ICD will require pressor support
[2016-12-24] MEDS ORDERED: DOPamine 400mg/250ml D5W 250 ML IV PRN (14:00)
--- NOTE | 2016-12-24 14:48 | RAD ---
HISTORY: intubated COMPARISON: Chest x-ray performed 12/22/16 TECHNIQUE: Chest, one view. FINDINGS: Distal tip of the endotracheal tube terminates approximately 3.4 cm above the isauro. Multiple external wires and leads obscure evaluation of the underlying parenchyma. LUNGS: Continued interval increase in right upper lobe opacities compatible with pneumonia. Please note that chest x-ray has limited sensitivity for the detection of pulmonary masses. PLEURA: No significant pleural effusion identified. No definite pneumothorax . CARDIOVASCULAR: Single lead left-sided AICD. Cardiomegaly. OSSEOUS STRUCTURES: No acute osseous abnormality identified. VISUALIZED UPPER ABDOMEN: Unremarkable. OTHER FINDINGS: None. IMPRESSION: Endotracheal tube terminates approximately 3.4 cm above the isauro. Continued interval increase in right upper lobe infiltrate. Cardiomegaly. Single lead left-sided AICD.
[2016-12-24] MEDS ORDERED: Midazolam 50 mg/10 ml 100 MG in Sodium Chloride 0.9% 80 ML IV SCH (15:15)
--- NOTE | 2016-12-24 15:54 | RAD ---
HISTORY: TLC Central Line PLacement Eval COMPARISON: Chest x-ray performed earlier the same day. TECHNIQUE: Chest, one view. FINDINGS: Endotracheal tube terminates approximately 2.9 cm above the level of the isauro. Right IJ approach central venous catheter extends the cavoatrial junction. LUNGS: Right upper lobe pneumonia. Please note that chest x-ray has limited sensitivity for the detection of pulmonary masses. PLEURA: No significant pleural effusion identified. No definite pneumothorax . CARDIOVASCULAR: Cardiomegaly. Single lead left-sided AICD. OSSEOUS STRUCTURES: No acute osseous abnormality identified. VISUALIZED UPPER ABDOMEN: Unremarkable. OTHER FINDINGS: None. IMPRESSION: Support lines and tubes as above. Right upper lobe pneumonia. Cardiomegaly. Single lead left-sided AICD.
--- NOTE | 2016-12-24 16:11 | CP.PCM.CON ---
<Rosa Martinez - Last Filed: 12/24/16 17:58> History of Present Illness - History of Present Illness History of Present Illness: Consult Note for ICU - Dr. Beckman H&P obtained from admission note CC: "I'm here because of my pacemaker, short of breath" 61 year old female with PMHx of lupus, pacemaker, stroke with left sided deficit , HTN presented to the emergency room with shortness of breath. Patient was brought in by a friend, who iwas not present at bedside. History as per patient , who is a poor historian. Admits to SOB and dry cough for unknown duration of time. She admitted to "having trouble" with her stomach for the past 3-4 months. She stated she has been having a lot of nausea and vomiting after eating. Denies fevers, chills. She also has scratches on her arms from her cat that lives in her apartment with her. She has 3 children who she is estranged from. She has no chest pain or palpitations today. Admits to abdominal pain from time to time. She also reports pain when she urinates. PMD: Dr. Marcos Personal Cardio: Dr. Cami Rubio Personal Rheum: Dr. Artemio Reynaga PMHx: Lupus, pacemaker, stroke with left sided deficit, HTN Medications: Folic Acid, MV, Gabapentin 100 mg PO BID, Omeprazole 20 mg PO daily , Tramadol 50 mg PO BID, Sertraline 50 mg PO daily, Amlodipine 5 mg PO daily. Allergies: NKDA SHx: denies Family Hx: denies Social: Denies tobacco, alcohol, illicit drug use While on the medical floor, patient was placed on BiPAP for shortness of breath and was being treated for aspiration pneumonia with Ceftriaxone and Azithromycin. This afternoon, rapid response was called at 1:39PM as patient was exhibiting agonal breathing. Pulse ox could not be obtained throughout the rapid response. Patient was noted to have good mentation throughout rapid response. Blood pressure had been stable but dropped to 66/40 after patient was given Lasix IVP. Patient received etomidate and succinylcholine and was intubated by anesthesia on the medical floor and started on Dopamine max dose. Systolic blood pressure improved to 85 mmHg. Patient was transferred to ICU. Stat chest x-ray was obtained which showed continued interval increase in right upper lobe opacities compatible with pneumonia, cardiomegaly and single lead left-sided AICD. Stat shock ABG, EKG, YOUSUF panel was ordered. TLC was placed to RIJ. Patient was saturating 93% prior to starting PRVC. Initial ventilator settings as follows: tidal volume 500, respiratory rate 16, and FiO2 100. Will continue care in ICU. Review of Systems - Review of Systems Review of Systems: ROS: unable to be obtained as patient intubated Past Patient History - Past Medical History & Family History Past Medical History?: Yes - Past Social History Smoking Status: Never Smoked Alcohol: None Drugs: Denies - CARDIAC Hx Pacemaker: Yes - NEUROLOGICAL HX Cerebrovascular Accident: Yes (RT side deficit) - MUSCULOSKELETAL/RHEUMATOLOGICAL Hx Falls: No - PSYCHIATRIC Hx Substance Use: No Meds Allergies/Adverse Reactions: Allergies Allergy/AdvReac Type Severity Reaction Status Date / Time No Known Allergies Allergy Verified 12/22/16 13:20 - Medications Medications: Current Medications Amlodipine Besylate (Norvasc) 5 mg PO DAILY [facility] Last Admin: 12/24/16 10:26 Dose: 5 mg Famotidine (Pepcid) 20 mg PO BID [facility] Last Admin: 12/24/16 10:37 Dose: 20 mg Folic Acid (Folic Acid) 1 mg PO DAILY [facility] Last Admin: 12/24/16 10:24 Dose: 1 mg Furosemide (Lasix) 20 mg PO BID [facility] Last Admin: 12/24/16 10:26 Dose: 20 mg Gabapentin (Neurontin) 100 mg PO BID [facility] Last Admin: 12/24/16 10:27 Dose: 100 mg Heparin Sodium (Porcine) (Heparin) 5,000 units SC Q8 [facility] Last Admin: 12/24/16 05:33 Dose: 5,000 units Hydroxychloroquine Sulfate (Plaquenil) 200 mg PO BID [facility] Last Admin: 12/24/16 10:27 Dose: 200 mg Azithromycin 500 mg/ Sodium (Chloride) 250 mls @ 250 mls/hr IVPB DAILY [facility] Last Admin: 12/24/16 10:37 Dose: 250 mls/hr Ceftriaxone Sodium 1 gm/ (Sodium Chloride) 100 mls @ 100 mls/hr IVPB DAILY [facility] Last Admin: 12/24/16 10:29 Dose: 100 mls/hr Sodium Chloride (Sodium Chloride 0.9%) 1,000 mls @ 75 mls/hr IV .[id number] [facility] Last Admin: 12/24/16 11:36 Dose: 75 mls/hr Dopamine HCl/Dextrose (Dopamine 400mg/250ml D5w) 250 mls @ 42.524 mls/hr IV .Q5H53M PRN; Protocol; 20 MCG/KG/MIN PRN Reason: TITRATE PER MD ORDER Midazolam HCl 100 mg/ Sodium (Chloride) 100 mls @ 1.13 mls/hr IV .Q24H LINN; 0.02 MG/KG/HR PRN Reason: Protocol Norepinephrine Bitartrate 4 mg (/ Sodium Chloride) 250 mls @ 15 mls/hr IV .[id number] PRN; Protocol; 4 MCG/MIN PRN Reason: TITRATE PER MD ORDER Multivitamins (Hexavitamin) 1 tab PO DAILY [facility] Last Admin: 12/24/16 10:28 Dose: 1 tab Ondansetron HCl (Zofran Inj) 4 mg IVP ACHS [facility] Last Admin: 12/24/16 11:37 Dose: 4 mg Sertraline HCl (Zoloft) 50 mg PO DAILY [facility] Last Admin: 12/24/16 10:25 Dose: 50 mg Physical Exam - Constitutional Additional comments: thin body habitus - Head Exam Head Exam: ATRAUMATIC, NORMAL INSPECTION, NORMOCEPHALIC Additional comments: intubated, sedated - Eye Exam Eye Exam: EOMI, PERRL - ENT Exam Additional comments: thin oral secretions - Neck Exam Neck exam: Positive for: Full Rom - Respiratory Exam Respiratory Exam: Rhonchi - Cardiovascular Exam Cardiovascular Exam: Tachycardia, +S1, +S2 - GI/Abdominal Exam GI & Abdominal Exam: Normal Bowel Sounds, Soft. absent: Tenderness - Extremities Exam Additional comments: 1+ pitting edema to lower extremities - Neurological Exam Neurological exam: Alert Additional comments: given etomidate and succinylcholine - Skin Skin Exam: Dry Additional comments: excoriations to upper extremities present Results - Vital Signs Recent Vital Signs: Last Vital Signs Temp 97.5 F L 12/24/16 08:38 Pulse 79 12/24/16 09:00 Resp 20 12/24/16 08:38 BP 118/80 12/24/16 10:26 Pulse Ox 100 12/24/16 08:38 - Labs Result Diagrams: 12/24/16 07:04 12/24/16 07:04 Labs: Laboratory Results - last 24 hr 12/23/16 12/24/16 12/24/16 13:54 07:04 13:42 WBC 5.6 RBC 3.40 L Hgb 11.7 Hct 34.7 MCV 102.2 H MCH 34.3 H MCHC 33.6 RDW 23.0 H Plt Count 165 MPV 9.2 Neut % (Auto) 72.3 Lymph % (Auto) 17.0 L [place] % (Auto) 10.4 H Eos % (Auto) 0.1 Baso % (Auto) 0.2 Neut # 4.1 Lymph # 1.0 [place] # 0.6 Eos # 0.0 Baso # 0.0 Sodium 143 Potassium 4.4 Chloride 106 Carbon Dioxide 21 L Anion Gap 20 BUN 28 H Creatinine 1.1 Est GFR ( Amer) > 60 Est GFR (Non-Af Amer) 51 POC Glucose (mg/dL) 115 H Random Glucose 98 Calcium 8.3 L Total Bilirubin 6.6 H AST 163 H D ALT 105 H D Alkaline Phosphatase 110 Total Protein 6.5 Albumin 2.4 L Globulin 4.1 H Albumin/Globulin Ratio 0.6 L Ceruloplasmin 48 Hepatitis A IgM Ab Negative Hep B Core IgM Ab Negative Hepatitis C Antibody Negative Assessment & Plan (1) Abnormal thyroid blood test Status: Acute (2) Hyperbilirubinemia Status: Acute (3) Lupus (systemic lupus erythematosus) Status: Acute (4) Pneumonia Status: Acute (5) Sepsis Status: Acute - Assessment and Plan (Free Text) Assessment: Pt is 61F with extensive medical history pertinent for lupus, heart failure with AICD, stroke with left sided deficit, and HTN admitted to the ICU s/p agonal breathing requiring intubation on medical floor. Patient being treated for sepsis likely secondary to aspiration pneumonia. Plan: Neuro: Sedated on Versed Responsive History of CVA with residual weakness Head CT: No evidence of acute intracranial hemorrhage acute territorial infarct mass effect or midline shift. Moderate-size encephalomalacia at the left temporal parietal lobe suggestive of chronic left MCA territory infarct. Moderate atrophy and white matter changes. 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 Rubio as outpatient f/u repeat Echo - pending read Area Development Manager, , consulted Hypotensive systolic blood pressure of 85 on transfer to ICU Currently on Dopamine Hold antihypertensive medications TLC placed to [facility] f/u YOUSUF panel Pulmonology: Intubated on PRVC Vent Settings: 500/16/FiO2 100 Shock ABG: pCO2 26, pO2 221, HCO3 17.9, pH 7.36, lactate 2.3 FiO2 decreased to 80 Saturating 98% CXR: worsening Right upper lobe consolidation, cardiomegaly, left-sided AICD Possible aspiration pneumonia Antibiotics as below GI: OG tube placed Per GI - Hepatitis panel, AMA (r/o PBC), Anti-SM and LKM Ab (r/o autoimmune hep) . Will consider EUS if work up is negative and direct bili remains elevated T. Hollis of 9.5, Direct Hollis of 7.2, GGT 126 AST 126/ALT 79 on admission T Bili 6.6, AST/ALT 163/105 (12/24/16) GI consult placed- Dr. Prasad- help appreciated CT Abdomen and Pelvis w/o PO or IV contrast : Small to moderate right pleural effusion. Trace ascites. Nonspecific presacral edema. Mild generalized anasarca. Mild hepatomegaly with fatty infiltration of the liver. No evidence of biliary obstruction. No evidence of cholecystitis. Mild nonspecific presacral edema, possibly related generalized anasarca. Additional minor findings as above. RUQ US 12/23 - Right renal cysts. Incidental note is made of small right pleural effusion. Echogenic liver may be seen in setting of hepatic parenchymal disease or fatty infiltration. Small perihepatic ascites. Small fluid is noted by the gallbladder fossa. Gallbladder wall thickening/ pericholecystic edema without evidence of gallstones. Negative sonographic Hutchinson's sign as assessed by the farm equipment technician. No portal vein thrombosis Heme: Hgb 11.7 Hematocrit 34.7 Platelet Count 165 Monitor Endocrine: T3 and T3 are low on admission with normal TSH. TSH 1.34, T3 uptake >65.0, Free T4 0.87 Rheumatology History of Lupus On Plaquenil 200 mg BID Folic Acid 1 mg PO daily IgG 1775.0 IgA 510.1 IgM 66.[address] Reynaga as outpatient Nephro: BUN/CR 28/1.1 Electrolytes within normal limits Monitor : Brunner catheter placed Monitor urinary output ID: WBC: 5.6 Possible aspiration pneumonia Started Cefepime 2 gm IVPB Q8H (12/24/16) On Azithromycin 500 mg IVPB daily and Vancomycin IVPB Q12H Prophylaxis: Heparin 5000 U SC Q8H Pepcid 20 mg po daily <Volodymyr Beckman - Last Filed: 12/24/16 18:50> Meds - Medications Medications: Current Medications Amlodipine Besylate (Norvasc) 5 mg PO DAILY [facility] Last Admin: 12/24/16 10:26 Dose: 5 mg Famotidine (Pepcid) 20 mg PO BID [facility] Last Admin: 12/24/16 18:14 Dose: 20 mg Folic Acid (Folic Acid) 1 mg PO DAILY [facility] Last Admin: 12/24/16 10:24 Dose: 1 mg Furosemide (Lasix) 20 mg PO BID [facility] Last Admin: 12/24/16 18:15 Dose: Not Given Gabapentin (Neurontin) 100 mg PO BID [facility] Last Admin: 12/24/16 18:14 Dose: 100 mg Heparin Sodium (Porcine) (Heparin) 5,000 units SC Q8 [facility] Last Admin: 12/24/16 16:00 Dose: 5,000 units Hydroxychloroquine Sulfate (Plaquenil) 200 mg PO BID [facility] Last Admin: 12/24/16 18:14 Dose: 200 mg Azithromycin 500 mg/ Sodium (Chloride) 250 mls @ 250 mls/hr IVPB DAILY [facility] Last Admin: 12/24/16 10:37 Dose: 250 mls/hr Sodium Chloride (Sodium Chloride 0.9%) 1,000 mls @ 75 mls/hr IV .[id number] [facility] Last Admin: 12/24/16 11:36 Dose: 75 mls/hr Dopamine HCl/Dextrose (Dopamine 400mg/250ml D5w) 250 mls @ 42.524 mls/hr IV .Q5H53M PRN; Protocol; 20 MCG/KG/MIN PRN Reason: TITRATE PER MD ORDER Last Titration: 12/24/16 18:08 Dose: 6 mcg/kg/min Midazolam HCl 100 mg/ Sodium (Chloride) 100 mls @ 1.13 mls/hr IV .Q24H LINN; 0.02 MG/KG/HR PRN Reason: Protocol Last Titration: 12/24/16 16:08 Dose: 0.04 mg/kg/hr Norepinephrine Bitartrate 4 mg (/ Sodium Chloride) 250 mls @ 15 mls/hr IV .[id number] PRN; Protocol; 4 MCG/MIN PRN Reason: TITRATE PER MD ORDER Vancomycin/Sodium Chloride (Vancocin) 200 mls @ 133.333 mls/hr IVPB Q12H [facility] Last Admin: 12/24/16 18:04 Dose: 133.333 mls/hr Cefepime HCl (Maxipime Iv 2 Gm Premix) 100 mls @ 100 mls/hr IVPB Q8H [facility] Last Admin: 12/24/16 18:04 Dose: 100 mls/hr Multivitamins (Hexavitamin) 1 tab PO DAILY [facility] Last Admin: 12/24/16 10:28 Dose: 1 tab Ondansetron HCl (Zofran Inj) 4 mg IVP ACHS [facility] Last Admin: 12/24/16 17:25 Dose: Not Given Sertraline HCl (Zoloft) 50 mg PO DAILY [facility] Last Admin: 12/24/16 10:25 Dose: 50 mg Results - Vital Signs Recent Vital Signs: Last Vital Signs Temp 98.6 F 12/24/16 16:00 Pulse 120 H 12/24/16 16:23 Resp 18 12/24/16 16:23 BP 115/83 12/24/16 16:23 Pulse Ox 96 12/24/16 16:23 - Labs Result Diagrams: 12/24/16 07:04 12/24/16 07:04 Labs: Laboratory Results - last 24 hr 12/23/16 12/24/16 12/24/16 13:54 07:04 13:42 WBC 5.6 RBC 3.40 L Hgb 11.7 Hct 34.7 MCV 102.2 H MCH 34.3 H MCHC 33.6 RDW 23.0 H Plt Count 165 MPV 9.2 Neut % (Auto) 72.3 Lymph % (Auto) 17.0 L [place] % (Auto) 10.4 H Eos % (Auto) 0.1 Baso % (Auto) 0.2 Neut # 4.1 Lymph # 1.0 [place] # 0.6 Eos # 0.0 Baso # 0.0 Puncture Site pCO2 pO2 HCO3 ABG pH ABG Total CO2 ABG O2 Saturation ABG Base Excess Billy Test ABG Potassium A-a O2 Difference Respiratory Index Glucose Lactate Mechanical Rate FiO2 Tidal Volume PEEP Sodium 143 Potassium 4.4 Chloride 106 Carbon Dioxide 21 L Anion Gap 20 BUN 28 H Creatinine 1.1 Est GFR ( Amer) > 60 Est GFR (Non-Af Amer) 51 POC Glucose (mg/dL) 115 H Random Glucose 98 Calcium 8.3 L Total Bilirubin 6.6 H AST 163 H D ALT 105 H D Alkaline Phosphatase 110 Total Protein 6.5 Albumin 2.4 L Globulin 4.1 H Albumin/Globulin Ratio 0.6 L Ceruloplasmin 48 Arterial Blood Potassium 12/24/16 16:27 WBC RBC Hgb Hct MCV MCH MCHC RDW Plt Count MPV Neut % (Auto) Lymph % (Auto) [place] % (Auto) Eos % (Auto) Baso % (Auto) Neut # Lymph # [place] # Eos # Baso # Puncture Site Rba pCO2 26 L pO2 221 H HCO3 17.9 L ABG pH 7.36 ABG Total CO2 15.5 L ABG O2 Saturation 100.2 H ABG Base Excess -9.1 L Billy Test Na ABG Potassium 4.1 A-a O2 Difference 460.0 Respiratory Index 2.1 Glucose 147 H Lactate 2.3 H Mechanical Rate 16 FiO2 100.0 Tidal Volume 500 PEEP 0 Sodium 138.0 Potassium Chloride 111.0 H Carbon Dioxide Anion Gap BUN Creatinine Est GFR ( Amer) Est GFR (Non-Af Amer) POC Glucose (mg/dL) Random Glucose Calcium Total Bilirubin AST ALT Alkaline Phosphatase Total Protein Albumin Globulin Albumin/Globulin Ratio Ceruloplasmin Arterial Blood Potassium 4.1 Attending/Attestation - Attestation I have personally seen and examined this patient.: Yes I have fully participated in the care of the patient.: Yes I have reviewed all pertinent clinical information: Yes Notes (Text): 12/24/16 18:48 Today: December Patient seen and examined, Medical records reviewed Pain issues, skin care, head of the bed elevation, GI/DVT prophylaxis, glycemic control were addressed, and management discussed and formulated. Agree with above treatment plans as transcribed in Dr. Jackson note
[2016-12-24 16:30] LABS: ABG MECHANICAL RATE 16; ATERIAL BLOOD GAS PEEP 0; DRAW SITE RBA
[2016-12-24] MEDS: Cefepime IV 2 gm in Dextrose 100 ML IVPB SCH (18:04)
[2016-12-24] MEDS: Vancomycin 1 gm/NS 200 ml 200 ML IVPB SCH (18:04)
[2016-12-24 18:55] LABS: INR 1.9
[2016-12-24] MEDS ORDERED: Albuterol-Ipratrop 3 mg / 0.5 (3 ml) UD INH PRN (21:23)
[2016-12-25] MEDS: Cefepime IV 2 gm in Dextrose 100 ML IVPB SCH ×3 (02:00→17:05)
[2016-12-25 05:30] LABS: ABG ALLEN TEST POS; ABG MECHANICAL RATE 16; DRAW SITE LB
[2016-12-25] MEDS: Vancomycin 1 gm/NS 200 ml 200 ML IVPB SCH (06:05)
[2016-12-25 06:21] LABS: HEMATOCRIT 34.9 % (34.0-47.0); LYMPH # 0.7 K/uL (1.0-4.3); MEAN CELL VOLUME 102.1 fL (81.0-99.0); MEAN CORPUSCULAR HEMOGLOBIN 34.6 pg (27.0-31.0); MEAN CORPUSCULAR HGB CONC 33.9 g/dL (33.0-37.0); MEAN PLATELET VOLUME 9.2 fL (7.2-11.7); MONO # 0.3 K/uL (0.0-0.8); MONO % 4.2 % (0.0-10.0); NRBC % 0.7 % (0.0-2.0); PLATELET COUNT 129 K/uL (130-400); RED CELL DISTRIBUTION WIDTH 22.7 % (11.5-14.5); WHITE BLOOD COUNT 8.2 K/uL (4.8-10.8)
[2016-12-25 06:30] LABS: CHLORIDE 107 mmol/L (98-107)
[2016-12-25 06:31] LABS: POTASSIUM 3.8 mmol/L (3.6-5.2); SODIUM 139 mmol/L (132-148)
[2016-12-25 06:33] LABS: BILIRUBIN,TOTAL 7.6 mg/dL (0.2-1.3); CARBON DIOXIDE 14 mmol/L (22-30); GFR AFRICAN-AMERICAN > 60
[2016-12-25 06:34] LABS: ALB/GLOB RATIO 0.7 (1.0-2.1); ALKALINE PHOSPHATASE 115 U/L (38-126); ALT/SGPT 109 U/L (9-52); AST/SGOT 201 U/L (14-36); BLOOD UREA NITROGEN 29 mg/dL (7-17); CALCIUM 8.2 mg/dl (8.6-10.4); GLUCOSE,RANDOM 106 mg/dL (65-105); TOTAL PROTEIN 6.6 g/dL (6.3-8.3)
[2016-12-25 06:35] LABS: MAGNESIUM 1.9 mg/dL (1.6-2.3)
[2016-12-25 06:36] LABS: INR 1.7
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
[2016-12-25 08:39] LABS: NEUTROPHIL 80 % (50-75); NUCLEATED RED BLOOD CELL 1 % (0-0); TOTAL CELLS COUNTED 100
[2016-12-25 08:40] LABS: LARGE PLATELETS PRESENT
--- NOTE | 2016-12-25 08:48 | RAD ---
HISTORY: ET Tube Eval COMPARISON: 12/24/2016 FINDINGS: LUNGS: Endotracheal tube extending into the midthoracic trachea. NG tube extending into stomach. Right central venous catheter extending in to the cavoatrial junction. Dense consolidative opacification of the right upper and midlung zones. Milder patchy opacity at the lung base. Diffuse increased interstitial lung markings. PLEURA: As above. CARDIOVASCULAR: Left-sided pacemaker. OSSEOUS STRUCTURES: No significant abnormalities. VISUALIZED UPPER ABDOMEN: Normal. OTHER FINDINGS: None. IMPRESSION: Endotracheal tube extending into the midthoracic trachea. NG tube extending into stomach. Right central venous catheter extending in to the cavoatrial junction. Dense consolidative opacification of the right upper and midlung zones. Milder patchy opacity at the lung base. Diffuse increased interstitial lung markings.
[2016-12-25] MEDS: Multiple Vitamins Tab PO SCH (10:07)
[2016-12-25] MEDS: Azithromycin 500 MG in Sodium Chloride 0.9% 250 ML IVPB SCH (10:08)
--- NOTE | 2016-12-25 10:14 | CP.PCM.PN ---
<Marquis Pack - Last Filed: 12/25/16 10:11> Subjective - Date & Time of Evaluation Date of Evaluation: 12/25/16 Time of Evaluation: 08:00 - Subjective Subjective: Progress note for Dr Montelongo: Pt seen and examined at bedside. Rapid response was called shortly after I evaluated patient yesterday. Patient had respiratory failure requiring intubation. Dopamine started due to patient being hypotensive. ROS unobtainable due to intubation. Objective - Vital Signs/Intake and Output Vital Signs (last 24 hours): Temp Pulse Resp BP Pulse Ox 98.7 F 102 H 24 125/89 100 12/25/16 08:00 12/25/16 08:00 12/25/16 08:00 12/25/16 10:07 12/25/16 08:00 Intake and Output: 12/25/16 12/25/16 06:59 18:59 Intake Total 502.5 4.6 Output Total 1415 110 Balance -912.5 -105.4 - Medications Medications: Current Medications Albuterol/Ipratropium (Duoneb 3 Mg/0.5 Mg (3 Ml) Ud) 3 ml INH RQ6 PRN PRN Reason: Shortness of Breath Amlodipine Besylate (Norvasc) 5 mg PO DAILY [facility] Last Admin: 12/25/16 10:07 Dose: 5 mg Famotidine (Pepcid) 20 mg PO BID [facility] Last Admin: 12/25/16 10:07 Dose: 20 mg Folic Acid (Folic Acid) 1 mg PO DAILY [facility] Last Admin: 12/25/16 10:07 Dose: 1 mg Furosemide (Lasix) 20 mg PO BID [facility] Last Admin: 12/25/16 10:07 Dose: 20 mg Gabapentin (Neurontin) 100 mg PO BID [facility] Last Admin: 12/25/16 10:07 Dose: 100 mg Heparin Sodium (Porcine) (Heparin) 5,000 units SC Q8 [facility] Last Admin: 12/25/16 06:06 Dose: 5,000 units Hydroxychloroquine Sulfate (Plaquenil) 200 mg PO BID [facility] Last Admin: 12/24/16 18:14 Dose: 200 mg Azithromycin 500 mg/ Sodium (Chloride) 250 mls @ 250 mls/hr IVPB DAILY [facility] Last Admin: 12/25/16 10:08 Dose: 250 mls/hr Sodium Chloride (Sodium Chloride 0.9%) 1,000 mls @ 75 mls/hr IV .[id number] [facility] Last Admin: 12/24/16 11:36 Dose: 75 mls/hr Dopamine HCl/Dextrose (Dopamine 400mg/250ml D5w) 250 mls @ 42.524 mls/hr IV .Q5H53M PRN; Protocol; 20 MCG/KG/MIN PRN Reason: TITRATE PER MD ORDER Last Titration: 12/24/16 18:08 Dose: 6 mcg/kg/min Midazolam HCl 100 mg/ Sodium (Chloride) 100 mls @ 1.13 mls/hr IV .Q24H [facility]; 0.02 MG/KG/HR PRN Reason: Protocol Last Titration: 12/24/16 16:08 Dose: 0.04 mg/kg/hr Norepinephrine Bitartrate 4 mg (/ Sodium Chloride) 250 mls @ 15 mls/hr IV .[id number] PRN; Protocol; 4 MCG/MIN PRN Reason: TITRATE PER MD ORDER Vancomycin/Sodium Chloride (Vancocin) 200 mls @ 133.333 mls/hr IVPB Q12H [facility] Last Admin: 12/25/16 06:05 Dose: 133.333 mls/hr Cefepime HCl (Maxipime Iv 2 Gm Premix) 100 mls @ 100 mls/hr IVPB Q8H [facility] Last Admin: 12/25/16 02:00 Dose: 100 mls/hr Multivitamins (Hexavitamin) 1 tab PO DAILY [facility] Last Admin: 12/25/16 10:07 Dose: 1 tab Ondansetron HCl (Zofran Inj) 4 mg IVP ACHS [facility] Last Admin: 12/25/16 07:44 Dose: 4 mg Sertraline HCl (Zoloft) 50 mg PO DAILY [facility] Last Admin: 12/25/16 10:07 Dose: 50 mg - Labs Labs: 12/25/16 06:11 12/25/16 06:07 PT 19.4 SECONDS (9.7-12.2) H 12/25/16 06:11 INR 1.7 12/25/16 06:11 APTT 34 SECONDS (21-34) D 12/25/16 06:11 - Constitutional Appears: No Acute Distress - Head Exam Head Exam: ATRAUMATIC, NORMAL INSPECTION, NORMOCEPHALIC - Eye Exam Eye Exam: EOMI, Normal appearance, PERRL - ENT Exam ENT Exam: Mucous Membranes Moist, Normal Exam - Neck Exam Neck Exam: Full ROM, Normal Inspection. absent: Lymphadenopathy - Respiratory Exam Respiratory Exam: Clear to Ausculation Bilateral, NORMAL BREATHING PATTERN. absent: Wheezes - Cardiovascular Exam Cardiovascular Exam: REGULAR RHYTHM, RRR, +S1, +S2. absent: Murmur - GI/Abdominal Exam GI & Abdominal Exam: Soft, Normal Bowel Sounds. absent: Distended, Tenderness - Extremities Exam Extremities Exam: Full ROM, Normal Capillary Refill, Normal Inspection. absent : Joint Swelling, Pedal Edema - Back Exam Back Exam: NORMAL INSPECTION - Neurological Exam Neurological Exam: Alert, Awake, CN II-XII Intact, Normal Gait, Oriented x3 - Psychiatric Exam Psychiatric exam: Normal Affect, Normal Mood - Skin Skin Exam: Dry, Intact, Normal Color, Warm Assessment and Plan - Assessment and Plan (Free Text) Assessment: 61 F with PMHx of lupus, heart failure with ICD, stroke (w/ L sided deficit), HTN presented with shortness of breath and abd pain admitted for CAP, UTI, and abdominal pain. Rapid response called yesterday for respiratory failure requiring intubation. Pt transferred to ICU for sepsis 2/2 to RUL pneumonia vs aspiration pneumonia. - Currently intubated and sedated - On Pressors, Consider inotrope therapy - Continue Lasix and duoneb - ICD interrogation - F/u Echo - Cont Amlodipine - CXR on admission showed extensive RUL infiltrate - Cont Vanc, Cefepime, and Azithromycin per medical team - F/u GI recs - GI/ DVT ppx Case and plan was reviewed and discussed in detail with Dr Montelongo. <Vaishali Montelongo - Last Filed: 01/07/17 17:34> Objective - Vital Signs/Intake and Output Vital Signs (last 24 hours): Temp Pulse Resp BP Pulse Ox 95 F L 40 L 26 H 30/0 L 52 L 01/07/17 10:20 01/07/17 11:00 01/07/17 11:00 01/07/17 10:38 01/07/17 11:00 Intake and Output: 01/07/17 01/07/17 06:59 18:59 Intake Total 3333.7 1646.9 Output Total 0 10 Balance 3333.7 1636.9 - Labs Labs: 01/07/17 06:25 01/07/17 06:25 PT 17.7 SECONDS (9.7-12.2) H 12/30/16 10:43 INR 1.6 12/30/16 10:43 APTT 34 SECONDS (21-34) D 12/25/16 06:11 Attending/Attestation - Attestation I have personally seen and examined this patient.: Yes I have fully participated in the care of the patient.: Yes I have reviewed all pertinent clinical information, including history, physical exam and plan: Yes Notes (Text): 01/07/17 17:34 continue pressor support positive balance
--- NOTE | 2016-12-25 13:24 | CP.CCUPN ---
<Rosa Martinez - Last Filed: 12/25/16 15:15> CCU Subjective - Physician Review Subjective (Free Text): 12/25/16 13:18 Pt seen & examined at bedside. Pt is sedated on propofol and intubated, vent settings tidal volume 500, respiratory rate 16, FiO2 80. Patient saturating 90% . Per Dr. Montelongo, patient noted to have severe pulmonary hypertension, right and left systolic heart failure and severe mitral regurgitation. Patient being treated for likely aspiration pneumonia. Critical Care Time Spent (in minutes): 90 CCU Objective - Vital Signs / Intake & Output Vital Signs (Last 4 hours): Vital Signs Temp Pulse Resp BP Pulse Ox 12/25/16 12:00 96.9 F L 91 H 20 99 12/25/16 11:38 99 H 19 102/74 99 12/25/16 11:23 103 H 16 106/83 100 12/25/16 11:08 104 H 14 111/83 99 12/25/16 11:00 104 H 13 100 12/25/16 10:53 104 H 14 115/89 100 12/25/16 10:38 102 H 19 121/86 100 12/25/16 10:23 104 H 16 126/91 H 100 12/25/16 10:08 104 H 18 131/87 100 12/25/16 10:07 125/89 12/25/16 10:00 103 H 18 100 12/25/16 09:53 103 H 18 125/89 100 12/25/16 09:38 103 H 14 125/93 H 100 12/25/16 09:23 103 H 18 125/89 100 Intake and Output (Last 8hrs): Intake & Output 12/24/16 12/25/16 12/25/16 22:59 06:59 14:59 Intake Total 543.2 231.4 362.6 Output Total 1150 715 260 Balance -606.8 -483.6 102.6 Weight 125 lb 0.034 oz 125 lb 10.616 oz Intake: Intake, IV Amount 493.2 231.4 362.6 Left Hand 75.0 Right Proximal Port 102.1 10.7 3.4 Internal Jugular Right Medial Port 16.1 20.7 9.2 Internal Jugular Right Distal Port 300 200 350 Internal Jugular Left Hand 0 Oral 50 Output: Urine 1150 715 260 Urethral ([place]) 1150 715 260 Other: # Bowel Movements 0 - Physical Exam Head: Positive for: Atraumatic, Normocephalic Pupils: Positive for: PERRL Pharnyx: Positive for: Other (intubated, OG tube) Respiratory/Chest: Positive for: Rales, Rhonchi Cardiovascular: Positive for: Normal S1, S2. Negative for: Murmurs Abdomen: Positive for: Normal Bowel Sounds. Negative for: Tenderness, Distention Upper Extremity: Positive for: Other (scratches to upper extremities noted) Lower Extremity: Positive for: Other (1+ pitting edema to bilateral lower extremities ) Neurological: Positive for: Other (responsive to pain, corneal reflex, gag and cough reflexes intact, pupils reactive to light) Skin: Positive for: Dry Other physical findings (Free Text): sedated on propofol - Medications Active Medications: Active Medications Generic Name Dose Route Start Last Admin Trade Name Freq PRN Reason Stop Dose Admin Famotidine 20 mg 12/23/16 10:00 12/25/16 10:07 Pepcid PO 20 mg BID LINN Administration Gabapentin 100 mg 12/23/16 10:00 12/25/16 10:07 Neurontin PO 100 mg BID LINN Administration Hydroxychloroquine Sulfate 200 mg 12/23/16 10:00 12/25/16 10:26 Plaquenil PO 200 mg BID LINN Administration Azithromycin 500 mg/ Sodium 250 mls @ 250 mls/hr 12/23/16 10:00 12/25/16 10:08 Chloride IVPB 250 mls/hr DAILY LINN Administration Cefepime HCl 100 mls @ 100 mls/hr 12/24/16 18:00 12/25/16 10:26 Maxipime Iv 2 Gm Premix IVPB 100 mls/hr Q8H LINN Administration Vancomycin HCl 850 mg/ Sodium 250 mls @ 166.6 mls/hr 12/25/16 11:30 12/25/16 11 :45 Chloride IVPB Not Given Q12H LINN Propofol 100 mls @ 1.71 mls/hr 12/25/16 11:07 12/25/16 11:20 Diprivan IV 1.71 mls/hr .Q24H PRN Administration TITRATE PER MD ORDER Protocol 5 MCG/KG/MIN Metoprolol Tartrate 12.5 mg 12/25/16 22:00 Lopressor PO Q12 LINN - Patient Studies Lab Studies: Microbiology Studies 12/24/16 Unknown MRSA Culture (Admit) - Final Nose MRSA NOT DETECTED 12/22/16 18:10 Blood Culture - Preliminary Blood NO GROWTH AFTER 48 HOURS 12/22/16 Unknown Urine Culture - Final Urine Escherichia Coli Lab Studies 12/25/16 12/25/16 12/25/16 Range/Units 06:25 06:11 06:10 WBC 8.2 (4.8-10.8) K/uL RBC 3.42 L (3.80-5.20) Mil/uL Hgb 11.8 (11.0-16.0) g/dL Hct 34.9 (34.0-47.0) % MCV 102.1 H (81.0-99.0) fL MCH 34.6 H (27.0-31.0) pg MCHC 33.9 (33.0-37.0) g/dL RDW 22.7 H (11.5-14.5) % Plt Count 129 L D (130-400) K/uL MPV 9.2 (7.2-11.7) fL Neut % (Auto) 86.8 H (50.0-75.0) % Lymph % (Auto) 9.0 L (20.0-40.0) % [place] % (Auto) 4.2 (0.0-10.0) % Eos % (Auto) 0.0 (0.0-4.0) % Baso % (Auto) 0.0 (0.0-2.0) % Neut # 7.1 H (1.8-7.0) K/uL Lymph # 0.7 L (1.0-4.3) K/uL [place] # 0.3 (0.0-0.8) K/uL Eos # 0.0 (0.0-0.7) K/uL Baso # 0.0 (0.0-0.2) K/uL Neutrophils % (Manual) 80 H (50-75) % Band Neutrophils % 1 (0-2) % Lymphocytes % (Manual) 13 L (20-40) % Monocytes % (Manual) 6 (0-10) % Nucleated RBC % 1 H (0-0) % Platelet Estimate Normal (NORMAL) Large Platelets Present Hypochromasia (manual) Slight Poikilocytosis (manual Slight Anisocytosis (manual) Slight Microcytosis (manual) Slight Macrocytosis (manual) Slight Orin Cells Slight PT 19.4 H (9.7-12.2) SECONDS INR 1.7 APTT 34 D (21-34) SECONDS Puncture Site pCO2 (35-45) mm/Hg pO2 (80-100) mm/Hg HCO3 (21-28) mmol/L ABG pH (7.35-7.45) ABG Total CO2 (22-28) mmol/L ABG O2 Saturation (95-98) % ABG Base Excess (-2.0-3.0) mmol/L Billy Test ABG Potassium (3.6-5.2) mmol/L A-a O2 Difference mm/Hg Respiratory Index Glucose (65-105) mg/dl Lactate (0.7-2.1) mmol/L Mechanical Rate FiO2 % Tidal Volume PEEP Sodium (132-148) mmol/L Potassium (3.6-5.2) mmol/L Chloride (98-107) mmol/L Carbon Dioxide (22-30) mmol/L Anion Gap (10-20) BUN (7-17) mg/dL Creatinine (0.7-1.2) MG/DL Est GFR ( Amer) Est GFR (Non-Af Amer) POC Glucose (mg/dL) (65-110) mg/dL Random Glucose (65-105) mg/dL Calcium (8.6-10.4) mg/dl Phosphorus (2.5-4.5) mg/dL Magnesium (1.6-2.3) mg/dL Total Bilirubin (0.2-1.3) mg/dL AST (14-36) U/L ALT (9-52) U/L Alkaline Phosphatase (38-126) U/L Total Creatine Kinase 74 (30-135) U/L CK-MB (Mass) 1.02 (0.0-3.38) ng/mL Troponin I, Quant 0.0830 (0.00-0.120) ng/mL Total Protein (6.3-8.3) g/dL Albumin (3.5-5.0) g/dL Globulin (2.2-3.9) gm/dL Albumin/Globulin Ratio (1.0-2.1) Arterial Blood Potassium (3.6-5.2) mmol/L Vancomycin Trough 15.3 H (5.0-10.0) ug/mL Anti-Mitochondrial Ab (Negative) 12/25/16 12/25/16 12/24/16 Range/Units 06:07 05:21 18:41 WBC (4.8-10.8) K/uL RBC (3.80-5.20) Mil/uL Hgb (11.0-16.0) g/dL Hct (34.0-47.0) % MCV (81.0-99.0) fL MCH (27.0-31.0) pg MCHC (33.0-37.0) g/dL RDW (11.5-14.5) % Plt Count (130-400) K/uL MPV (7.2-11.7) fL Neut % (Auto) (50.0-75.0) % Lymph % (Auto) (20.0-40.0) % [place] % (Auto) (0.0-10.0) % Eos % (Auto) (0.0-4.0) % Baso % (Auto) (0.0-2.0) % Neut # (1.8-7.0) K/uL Lymph # (1.0-4.3) K/uL [place] # (0.0-0.8) K/uL Eos # (0.0-0.7) K/uL Baso # (0.0-0.2) K/uL Neutrophils % (Manual) (50-75) % Band Neutrophils % (0-2) % Lymphocytes % (Manual) (20-40) % Monocytes % (Manual) (0-10) % Nucleated RBC % (0-0) % Platelet Estimate (NORMAL) Large Platelets Hypochromasia (manual) Poikilocytosis (manual Anisocytosis (manual) Microcytosis (manual) Macrocytosis (manual) Orin Cells PT 21.1 H (9.7-12.2) SECONDS INR 1.9 APTT (21-34) SECONDS Puncture Site Lb pCO2 24 L (35-45) mm/Hg pO2 191 H (80-100) mm/Hg HCO3 20.3 L (21-28) mmol/L ABG pH 7.44 (7.35-7.45) ABG Total CO2 17.0 L (22-28) mmol/L ABG O2 Saturation 100.2 H (95-98) % ABG Base Excess -6.0 L (-2.0-3.0) mmol/L Billy Test Pos ABG Potassium 3.7 (3.6-5.2) mmol/L A-a O2 Difference 349.0 mm/Hg Respiratory Index 1.8 Glucose 110 H (65-105) mg/dl Lactate 1.4 (0.7-2.1) mmol/L Mechanical Rate 16 FiO2 80.0 % Tidal Volume 500 PEEP Sodium 139 138.0 (132-148) mmol/L Potassium 3.8 (3.6-5.2) mmol/L Chloride 107 112.0 H (98-107) mmol/L Carbon Dioxide 14 L (22-30) mmol/L Anion Gap 22 H (10-20) BUN 29 H (7-17) mg/dL Creatinine 1.1 (0.7-1.2) MG/DL Est GFR ( Amer) > 60 Est GFR (Non-Af Amer) 51 POC Glucose (mg/dL) (65-110) mg/dL Random Glucose 106 H (65-105) mg/dL Calcium 8.2 L (8.6-10.4) mg/dl Phosphorus 3.0 (2.5-4.5) mg/dL Magnesium 1.9 (1.6-2.3) mg/dL Total Bilirubin 7.6 H (0.2-1.3) mg/dL AST 201 H D (14-36) U/L ALT 109 H (9-52) U/L Alkaline Phosphatase 115 (38-126) U/L Total Creatine Kinase 97 (30-135) U/L CK-MB (Mass) 1.57 (0.0-3.38) ng/mL Troponin I, Quant 0.0670 (0.00-0.120) ng/mL Total Protein 6.6 (6.3-8.3) g/dL Albumin 2.6 L (3.5-5.0) g/dL Globulin 4.0 H (2.2-3.9) gm/dL Albumin/Globulin Ratio 0.7 L (1.0-2.1) Arterial Blood Potassium 3.7 (3.6-5.2) mmol/L Vancomycin Trough (5.0-10.0) ug/mL Anti-Mitochondrial Ab (Negative) 12/24/16 12/24/16 12/24/16 Range/Units 16:27 13:42 11:33 WBC (4.8-10.8) K/uL RBC (3.80-5.20) Mil/uL Hgb (11.0-16.0) g/dL Hct (34.0-47.0) % MCV (81.0-99.0) fL MCH (27.0-31.0) pg MCHC (33.0-37.0) g/dL RDW (11.5-14.5) % Plt Count (130-400) K/uL MPV (7.2-11.7) fL Neut % (Auto) (50.0-75.0) % Lymph % (Auto) (20.0-40.0) % [place] % (Auto) (0.0-10.0) % Eos % (Auto) (0.0-4.0) % Baso % (Auto) (0.0-2.0) % Neut # (1.8-7.0) K/uL Lymph # (1.0-4.3) K/uL [place] # (0.0-0.8) K/uL Eos # (0.0-0.7) K/uL Baso # (0.0-0.2) K/uL Neutrophils % (Manual) (50-75) % Band Neutrophils % (0-2) % Lymphocytes % (Manual) (20-40) % Monocytes % (Manual) (0-10) % Nucleated RBC % (0-0) % Platelet Estimate (NORMAL) Large Platelets Hypochromasia (manual) Poikilocytosis (manual Anisocytosis (manual) Microcytosis (manual) Macrocytosis (manual) Orin Cells PT (9.7-12.2) SECONDS INR APTT (21-34) SECONDS Puncture Site Rba pCO2 26 L (35-45) mm/Hg pO2 221 H (80-100) mm/Hg HCO3 17.9 L (21-28) mmol/L ABG pH 7.36 (7.35-7.45) ABG Total CO2 15.5 L (22-28) mmol/L ABG O2 Saturation 100.2 H (95-98) % ABG Base Excess -9.1 L (-2.0-3.0) mmol/L Billy Test Na ABG Potassium 4.1 (3.6-5.2) mmol/L A-a O2 Difference 460.0 mm/Hg Respiratory Index 2.1 Glucose 147 H (65-105) mg/dl Lactate 2.3 H (0.7-2.1) mmol/L Mechanical Rate 16 FiO2 100.0 % Tidal Volume 500 PEEP 0 Sodium 138.0 (132-148) mmol/L Potassium (3.6-5.2) mmol/L Chloride 111.0 H (98-107) mmol/L Carbon Dioxide (22-30) mmol/L Anion Gap (10-20) BUN (7-17) mg/dL Creatinine (0.7-1.2) MG/DL Est GFR ( Amer) Est GFR (Non-Af Amer) POC Glucose (mg/dL) 115 H (65-110) mg/dL Random Glucose (65-105) mg/dL Calcium (8.6-10.4) mg/dl Phosphorus (2.5-4.5) mg/dL Magnesium (1.6-2.3) mg/dL Total Bilirubin (0.2-1.3) mg/dL AST (14-36) U/L ALT (9-52) U/L Alkaline Phosphatase (38-126) U/L Total Creatine Kinase (30-135) U/L CK-MB (Mass) (0.0-3.38) ng/mL Troponin I, Quant (0.00-0.120) ng/mL Total Protein (6.3-8.3) g/dL Albumin (3.5-5.0) g/dL Globulin (2.2-3.9) gm/dL Albumin/Globulin Ratio (1.0-2.1) Arterial Blood Potassium 4.1 (3.6-5.2) mmol/L Vancomycin Trough (5.0-10.0) ug/mL Anti-Mitochondrial Ab Negative (Negative) Laboratory Results - last 24 hr 12/24/16 12/24/16 12/24/16 11:33 13:42 16:27 WBC RBC Hgb Hct MCV MCH MCHC RDW Plt Count MPV Neut % (Auto) Lymph % (Auto) [place] % (Auto) Eos % (Auto) Baso % (Auto) Neut # Lymph # [place] # Eos # Baso # Neutrophils % (Manual) Band Neutrophils % Lymphocytes % (Manual) Monocytes % (Manual) Nucleated RBC % Platelet Estimate Large Platelets Hypochromasia (manual) Poikilocytosis (manual Anisocytosis (manual) Microcytosis (manual) Macrocytosis (manual) Orin Cells PT INR APTT Puncture Site Rba pCO2 26 L pO2 221 H HCO3 17.9 L ABG pH 7.36 ABG Total CO2 15.5 L ABG O2 Saturation 100.2 H ABG Base Excess -9.1 L Billy Test Na ABG Potassium 4.1 A-a O2 Difference 460.0 Respiratory Index 2.1 Sodium 138.0 Chloride 111.0 H Glucose 147 H Lactate 2.3 H Mechanical Rate 16 FiO2 100.0 Tidal Volume 500 PEEP 0 Potassium Carbon Dioxide Anion Gap BUN Creatinine Est GFR ( Amer) Est GFR (Non-Af Amer) POC Glucose (mg/dL) 115 H Random Glucose Calcium Phosphorus Magnesium Total Bilirubin AST ALT Alkaline Phosphatase Total Creatine Kinase CK-MB (Mass) Troponin I, Quant Total Protein Albumin Globulin Albumin/Globulin Ratio Arterial Blood Potassium 4.1 Vancomycin Trough Anti-Mitochondrial Ab Negative 12/24/16 12/25/16 12/25/16 18:41 05:21 06:07 WBC RBC Hgb Hct MCV MCH MCHC RDW Plt Count MPV Neut % (Auto) Lymph % (Auto) [place] % (Auto) Eos % (Auto) Baso % (Auto) Neut # Lymph # [place] # Eos # Baso # Neutrophils % (Manual) Band Neutrophils % Lymphocytes % (Manual) Monocytes % (Manual) Nucleated RBC % Platelet Estimate Large Platelets Hypochromasia (manual) Poikilocytosis (manual Anisocytosis (manual) Microcytosis (manual) Macrocytosis (manual) [place] Cells PT 21.1 H INR 1.9 APTT Puncture Site Lb pCO2 24 L pO2 191 H HCO3 20.3 L ABG pH 7.44 ABG Total CO2 17.0 L ABG O2 Saturation 100.2 H ABG Base Excess -6.0 L Billy Test Pos ABG Potassium 3.7 A-a O2 Difference 349.0 Respiratory Index 1.8 Sodium 138.0 139 Chloride 112.0 H 107 Glucose 110 H Lactate 1.4 Mechanical Rate 16 FiO2 80.0 Tidal Volume 500 PEEP Potassium 3.8 Carbon Dioxide 14 L Anion Gap 22 H BUN 29 H Creatinine 1.1 Est GFR ( Amer) > 60 Est GFR (Non-Af Amer) 51 POC Glucose (mg/dL) Random Glucose 106 H Calcium 8.2 L Phosphorus 3.0 Magnesium 1.9 Total Bilirubin 7.6 H AST 201 H D ALT 109 H Alkaline Phosphatase 115 Total Creatine Kinase 97 CK-MB (Mass) 1.57 Troponin I, Quant 0.0670 Total Protein 6.6 Albumin 2.6 L Globulin 4.0 H Albumin/Globulin Ratio 0.7 L Arterial Blood Potassium 3.7 Vancomycin Trough Anti-Mitochondrial Ab 12/25/16 12/25/16 12/25/16 06:10 06:11 06:25 WBC 8.2 RBC 3.42 L Hgb 11.8 Hct 34.9 MCV 102.1 H MCH 34.6 H MCHC 33.9 RDW 22.7 H Plt Count 129 L D MPV 9.2 Neut % (Auto) 86.8 H Lymph % (Auto) 9.0 L [place] % (Auto) 4.2 Eos % (Auto) 0.0 Baso % (Auto) 0.0 Neut # 7.1 H Lymph # 0.7 L [place] # 0.3 Eos # 0.0 Baso # 0.0 Neutrophils % (Manual) 80 H Band Neutrophils % 1 Lymphocytes % (Manual) 13 L Monocytes % (Manual) 6 Nucleated RBC % 1 H Platelet Estimate Normal Large Platelets Present Hypochromasia (manual) Slight Poikilocytosis (manual Slight Anisocytosis (manual) Slight Microcytosis (manual) Slight Macrocytosis (manual) Slight Orin Cells Slight PT 19.4 H INR 1.7 APTT 34 D Puncture Site pCO2 pO2 HCO3 ABG pH ABG Total CO2 ABG O2 Saturation ABG Base Excess Billy Test ABG Potassium A-a O2 Difference Respiratory Index Sodium Chloride Glucose Lactate Mechanical Rate FiO2 Tidal Volume PEEP Potassium Carbon Dioxide Anion Gap BUN Creatinine Est GFR ( Amer) Est GFR (Non-Af Amer) POC Glucose (mg/dL) Random Glucose Calcium Phosphorus Magnesium Total Bilirubin AST ALT Alkaline Phosphatase Total Creatine Kinase 74 CK-MB (Mass) 1.02 Troponin I, Quant 0.0830 Total Protein Albumin Globulin Albumin/Globulin Ratio Arterial Blood Potassium Vancomycin Trough 15.3 H Anti-Mitochondrial Ab EKG/Cardiology Studies: Cardiology / EKG Studies 12/24/16 14:25 EKG [ELECTROCARDIOGRAM] Stat Comment: Mode Of Transportation: Reason For Exam: Dyspnea Fingerstick Blood Sugar Results: 105 Review of Systems - Review of Systems Review of Systems: ROS: cannot be obtained as patient is intubated Critical Care Progress Note - Ventilator Checklist Head of Bed 30 Degrees: Yes Daily Sedation Vacation: Yes Daily Assessment of Readiness to Wean: Yes Daily Spontaneous Breathing Trial: Yes PUD Prophalyxis: Yes DVT Prophylaxis: Yes Oral Care with Chlorhexidine Gluconate {CHG}: Yes - Vent Settings MODE:: PRVC TIDAL VOLUME:: 500 RESP RATE:: 16 FIO2:: 80 - Extremities/Vascular Does the Patient have a Central Venous Catheter?: Yes (ANDI) Catheter Insertion Criteria: Need for accurate measurement of output in critically ill patient - Prophylaxis GI Prophylaxis GI: Pepsid - Prophylaxis DVT Prophylaxis DVT: Heparin SQ, SCDs - Nutrition Nutrition: Nutrition Category Date Time Status Heart Healthy Diet [DIET] Diets 12/24/16 Lunch Active Assessment/Plan (1) Abnormal thyroid blood test Current Visit: Yes Status: Acute (2) Hyperbilirubinemia Current Visit: Yes Status: Acute (3) Lupus (systemic lupus erythematosus) Current Visit: Yes Status: Acute (4) Pneumonia Current Visit: Yes Status: Acute (5) Sepsis Current Visit: Yes Status: Acute (6) CHF (congestive heart failure) Current Visit: Yes Status: Acute (7) Pulmonary hypertension Current Visit: Yes Status: Acute - Assessment and Plan (Free Text) Assessment: Pt is 61F with extensive medical history pertinent for lupus, pulmonary hypertension, heart failure with AICD, CVA with left sided deficit, and HTN admitted to the ICU s/p agonal breathing requiring intubation on medical floor. Patient being treated for sepsis likely secondary to aspiration pneumonia. Continues to be intubated and sedated. Plan: Neuro: Sedated on Propofol d/c Versed Responsive History of CVA with residual weakness Head CT: No evidence of acute intracranial hemorrhage acute territorial infarct mass effect or midline shift. Moderate-size encephalomalacia at the left temporal parietal lobe suggestive of chronic left MCA territory infarct. Moderate atrophy and white matter changes. CVS: CHF with EF noted to be 22 on previous echocardiogram AICD, for interrogation Pro-BNP [id number] YOUSUF Panel: 0.0830, 0.0670, 0.0240 History of HTN Follows back padder Dr. Rubio as outpatient Echo (12/22/16)- pending official read. Per Dr. Montelongo- severe pulmonary hypertension, right and left heart failure, severe mitral regurgitation [facility] Intern, Dr. Montelongo, consulted. On case. Pressure: 107/75 No longer requiring Dopamine Started on Lopressor 12.5 mg po q12h TLC placed to [facility] Pulmonology: Intubated on PRVC Vent Settings: 500/16/FiO2 80 Shock ABG: pCO2 24, pO2 191, HCO3 20.3, pH 7.44, lactate 1.4 Saturating 98% CXR: dense consolidative opacity of the right upper and midlung zones. Mild patchy opacity at lung base. Diffuse increased interstitial lung markings. Possible aspiration pneumonia Antibiotics as below GI: OG tube placed Per GI - Hepatitis panel, AMA (r/o PBC), Anti-SM and LKM Ab (r/o autoimmune hep) . Will consider EUS if work up is negative and direct bili remains elevated T Bili 7.6, AST/ALT 201/109 (12/24/16) IgG 1775.0, IgA 510.1, IgM 66.3, Anti-Mitochondrial Ab Negative f/u Pancreas CT f/u Immune studies GI consult placed- Dr. Prasad- help appreciated CT Abdomen and Pelvis w/o PO or IV contrast : Small to moderate right pleural effusion. Trace ascites. Nonspecific presacral edema. Mild generalized anasarca. Mild hepatomegaly with fatty infiltration of the liver. No evidence of biliary obstruction. No evidence of cholecystitis. Mild nonspecific presacral edema, possibly related generalized anasarca. Additional minor findings as above. RUQ US 12/23 - Right renal cysts. Incidental note is made of small right pleural effusion. Echogenic liver may be seen in setting of hepatic parenchymal disease or fatty infiltration. Small perihepatic ascites. Small fluid is noted by the gallbladder fossa. Gallbladder wall thickening/ pericholecystic edema without evidence of gallstones. Negative sonographic Hutchinson's sign as assessed by the mammal control agent. No portal vein thrombosis Heme: Hgb 11.7 Hematocrit 34.9 Platelet Count 129 Monitor Endocrine: T3 and T3 are low on admission with normal TSH. TSH 1.34, T3 uptake >65.0, Free T4 0.87 Rheumatology History of Lupus On Plaquenil 200 mg po BID Patient follows with Dr. Reynaga as outpatient Nephro: BUN/CR 29/1.1 Electrolytes within normal limits Continue to monitor : Brunner catheter placed Monitor urinary output ID: WBC: 8.2 Possible aspiration pneumonia Cefepime 2 gm IVPB Q8H (12/24/16) Azithromycin 500 mg IVPB daily Vancomycin 850mg IVPB Q12H Prophylaxis: Heparin 5000 U SC Q8H Pepcid 20 mg po daily <Tomeka Strong - Last Filed: 12/25/16 18:42> CCU Subjective - Physician Review Events Since Last Encounter (Free Text): 12/25/16 18:35 Patient seen and examine in am. Seems agitated while on versed, switched to propofol and doing much better. Off dopamine and levophed today. Started metoprolol given cardiomyopathy and tachycardia, after starting HR 80's and holding BP well, replaced Mg and K. On minimal ventilator settings this morning. Decrease vancomycin dose for pneumonia, vancomycing though before 4th dose in am. bilirrubin slight increase, Ct scan showing multiple small enhancing nodules throughout the liver, GI to follow, hold on malignancy workup at this time. CCU Objective - Vital Signs / Intake & Output Vital Signs (Last 4 hours): Vital Signs Temp Pulse Resp BP Pulse Ox 12/25/16 17:41 82 16 115/80 98 12/25/16 17:00 81 16 99 12/25/16 16:41 82 14 121/55 L 100 12/25/16 16:00 96.5 F L 82 16 100 12/25/16 15:41 85 16 118/82 12/25/16 15:12 87 11 L 128/83 100 12/25/16 14:41 80 110/73 100 Intake and Output (Last 8hrs): Intake & Output 12/25/16 12/25/16 12/25/16 06:59 14:59 22:59 Intake Total 231.4 366.7 6.8 Output Total 715 385 250 Balance -483.6 -18.3 -243.2 Weight 125 lb 10.616 oz Intake: Intake, IV Amount 231.4 366.7 6.8 Right Proximal Port 10.7 7.5 6.8 Internal Jugular Right Medial Port 20.7 9.2 Internal Jugular Right Distal Port 200 350 Internal Jugular Left Hand 0 Output: Urine 715 385 250 Urethral ([place]) 715 385 250 - Medications Active Medications: Active Medications Generic Name Dose Route Start Last Admin Trade Name Freq PRN Reason Stop Dose Admin Famotidine 20 mg 12/23/16 10:00 12/25/16 17:05 Pepcid PO 20 mg BID LINN Administration Gabapentin 100 mg 12/23/16 10:00 12/25/16 17:05 Neurontin PO 100 mg BID LINN Administration Heparin Sodium (Porcine) 5,000 units 12/25/16 22:00 Heparin SC Q8 LINN Hydroxychloroquine Sulfate 200 mg 12/23/16 10:00 12/25/16 17:05 Plaquenil PO 200 mg BID LINN Administration Azithromycin 500 mg/ Sodium 250 mls @ 250 mls/hr 12/23/16 10:00 12/25/16 10:08 Chloride IVPB 250 mls/hr DAILY LINN Administration Cefepime HCl 100 mls @ 100 mls/hr 12/24/16 18:00 12/25/16 17:05 Maxipime Iv 2 Gm Premix IVPB 100 mls/hr Q8H LINN Administration Vancomycin HCl 850 mg/ Sodium 250 mls @ 166.6 mls/hr 12/25/16 11:30 12/25/16 11 :45 Chloride IVPB Not Given Q12H LINN Propofol 100 mls @ 1.71 mls/hr 12/25/16 11:07 12/25/16 11:20 Diprivan IV 1.71 mls/hr .Q24H PRN Administration TITRATE PER MD ORDER Protocol 5 MCG/KG/MIN Metoprolol Tartrate 12.5 mg 12/25/16 22:00 Lopressor PO Q12 LINN - Patient Studies Lab Studies: Microbiology Studies 12/24/16 Unknown MRSA Culture (Admit) - Final Nose MRSA NOT DETECTED 12/22/16 18:10 Blood Culture - Preliminary Blood NO GROWTH AFTER 48 HOURS Lab Studies 12/25/16 12/25/16 12/25/16 Range/Units 06:25 06:11 06:10 WBC 8.2 (4.8-10.8) K/uL RBC 3.42 L (3.80-5.20) Mil/uL Hgb 11.8 (11.0-16.0) g/dL Hct 34.9 (34.0-47.0) % MCV 102.1 H (81.0-99.0) fL MCH 34.6 H (27.0-31.0) pg MCHC 33.9 (33.0-37.0) g/dL RDW 22.7 H (11.5-14.5) % Plt Count 129 L D (130-400) K/uL MPV 9.2 (7.2-11.7) fL Neut % (Auto) 86.8 H (50.0-75.0) % Lymph % (Auto) 9.0 L (20.0-40.0) % [place] % (Auto) 4.2 (0.0-10.0) % Eos % (Auto) 0.0 (0.0-4.0) % Baso % (Auto) 0.0 (0.0-2.0) % Neut # 7.1 H (1.8-7.0) K/uL Lymph # 0.7 L (1.0-4.3) K/uL [place] # 0.3 (0.0-0.8) K/uL Eos # 0.0 (0.0-0.7) K/uL Baso # 0.0 (0.0-0.2) K/uL Neutrophils % (Manual) 80 H (50-75) % Band Neutrophils % 1 (0-2) % Lymphocytes % (Manual) 13 L (20-40) % Monocytes % (Manual) 6 (0-10) % Nucleated RBC % 1 H (0-0) % Platelet Estimate Normal (NORMAL) Large Platelets Present Hypochromasia (manual) Slight Poikilocytosis (manual Slight Anisocytosis (manual) Slight Microcytosis (manual) Slight Macrocytosis (manual) Slight Orin Cells Slight PT 19.4 H (9.7-12.2) SECONDS INR 1.7 APTT 34 D (21-34) SECONDS Puncture Site pCO2 (35-45) mm/Hg pO2 (80-100) mm/Hg HCO3 (21-28) mmol/L ABG pH (7.35-7.45) ABG Total CO2 (22-28) mmol/L ABG O2 Saturation (95-98) % ABG Base Excess (-2.0-3.0) mmol/L Billy Test ABG Potassium (3.6-5.2) mmol/L A-a O2 Difference mm/Hg Respiratory Index Glucose (65-105) mg/dl Lactate (0.7-2.1) mmol/L Mechanical Rate FiO2 % Tidal Volume Sodium (132-148) mmol/L Potassium (3.6-5.2) mmol/L Chloride (98-107) mmol/L Carbon Dioxide (22-30) mmol/L Anion Gap (10-20) BUN (7-17) mg/dL Creatinine (0.7-1.2) MG/DL Est GFR ( Amer) Est GFR (Non-Af Amer) Random Glucose (65-105) mg/dL Calcium (8.6-10.4) mg/dl Phosphorus (2.5-4.5) mg/dL Magnesium (1.6-2.3) mg/dL Total Bilirubin (0.2-1.3) mg/dL AST (14-36) U/L ALT (9-52) U/L Alkaline Phosphatase (38-126) U/L Total Creatine Kinase 74 (30-135) U/L CK-MB (Mass) 1.02 (0.0-3.38) ng/mL Troponin I, Quant 0.0830 (0.00-0.120) ng/mL Total Protein (6.3-8.3) g/dL Albumin (3.5-5.0) g/dL Globulin (2.2-3.9) gm/dL Albumin/Globulin Ratio (1.0-2.1) Arterial Blood Potassium (3.6-5.2) mmol/L Vancomycin Trough 15.3 H (5.0-10.0) ug/mL Anti-Mitochondrial Ab (Negative) 12/25/16 12/25/16 12/24/16 Range/Units 06:07 05:21 18:41 WBC (4.8-10.8) K/uL RBC (3.80-5.20) Mil/uL Hgb (11.0-16.0) g/dL Hct (34.0-47.0) % MCV (81.0-99.0) fL MCH (27.0-31.0) pg MCHC (33.0-37.0) g/dL RDW (11.5-14.5) % Plt Count (130-400) K/uL MPV (7.2-11.7) fL Neut % (Auto) (50.0-75.0) % Lymph % (Auto) (20.0-40.0) % [place] % (Auto) (0.0-10.0) % Eos % (Auto) (0.0-4.0) % Baso % (Auto) (0.0-2.0) % Neut # (1.8-7.0) K/uL Lymph # (1.0-4.3) K/uL [place] # (0.0-0.8) K/uL Eos # (0.0-0.7) K/uL Baso # (0.0-0.2) K/uL Neutrophils % (Manual) (50-75) % Band Neutrophils % (0-2) % Lymphocytes % (Manual) (20-40) % Monocytes % (Manual) (0-10) % Nucleated RBC % (0-0) % Platelet Estimate (NORMAL) Large Platelets Hypochromasia (manual) Poikilocytosis (manual Anisocytosis (manual) Microcytosis (manual) Macrocytosis (manual) [place] Cells PT 21.1 H (9.7-12.2) SECONDS INR 1.9 APTT (21-34) SECONDS Puncture Site Lb pCO2 24 L (35-45) mm/Hg pO2 191 H (80-100) mm/Hg HCO3 20.3 L (21-28) mmol/L ABG pH 7.44 (7.35-7.45) ABG Total CO2 17.0 L (22-28) mmol/L ABG O2 Saturation 100.2 H (95-98) % ABG Base Excess -6.0 L (-2.0-3.0) mmol/L Billy Test Pos ABG Potassium 3.7 (3.6-5.2) mmol/L A-a O2 Difference 349.0 mm/Hg Respiratory Index 1.8 Glucose 110 H (65-105) mg/dl Lactate 1.4 (0.7-2.1) mmol/L Mechanical Rate 16 FiO2 80.0 % Tidal Volume 500 Sodium 139 138.0 (132-148) mmol/L Potassium 3.8 (3.6-5.2) mmol/L Chloride 107 112.0 H (98-107) mmol/L Carbon Dioxide 14 L (22-30) mmol/L Anion Gap 22 H (10-20) BUN 29 H (7-17) mg/dL Creatinine 1.1 (0.7-1.2) MG/DL Est GFR ( Amer) > 60 Est GFR (Non-Af Amer) 51 Random Glucose 106 H (65-105) mg/dL Calcium 8.2 L (8.6-10.4) mg/dl Phosphorus 3.0 (2.5-4.5) mg/dL Magnesium 1.9 (1.6-2.3) mg/dL Total Bilirubin 7.6 H (0.2-1.3) mg/dL AST 201 H D (14-36) U/L ALT 109 H (9-52) U/L Alkaline Phosphatase 115 (38-126) U/L Total Creatine Kinase 97 (30-135) U/L CK-MB (Mass) 1.57 (0.0-3.38) ng/mL Troponin I, Quant 0.0670 (0.00-0.120) ng/mL Total Protein 6.6 (6.3-8.3) g/dL Albumin 2.6 L (3.5-5.0) g/dL Globulin 4.0 H (2.2-3.9) gm/dL Albumin/Globulin Ratio 0.7 L (1.0-2.1) Arterial Blood Potassium 3.7 (3.6-5.2) mmol/L Vancomycin Trough (5.0-10.0) ug/mL Anti-Mitochondrial Ab (Negative) 12/24/16 Range/Units 11:33 WBC (4.8-10.8) K/uL RBC (3.80-5.20) Mil/uL Hgb (11.0-16.0) g/dL Hct (34.0-47.0) % MCV (81.0-99.0) fL MCH (27.0-31.0) pg MCHC (33.0-37.0) g/dL RDW (11.5-14.5) % Plt Count (130-400) K/uL MPV (7.2-11.7) fL Neut % (Auto) (50.0-75.0) % Lymph % (Auto) (20.0-40.0) % [place] % (Auto) (0.0-10.0) % Eos % (Auto) (0.0-4.0) % Baso % (Auto) (0.0-2.0) % Neut # (1.8-7.0) K/uL Lymph # (1.0-4.3) K/uL [place] # (0.0-0.8) K/uL Eos # (0.0-0.7) K/uL Baso # (0.0-0.2) K/uL Neutrophils % (Manual) (50-75) % Band Neutrophils % (0-2) % Lymphocytes % (Manual) (20-40) % Monocytes % (Manual) (0-10) % Nucleated RBC % (0-0) % Platelet Estimate (NORMAL) Large Platelets Hypochromasia (manual) Poikilocytosis (manual Anisocytosis (manual) Microcytosis (manual) Macrocytosis (manual) Orin Cells PT (9.7-12.2) SECONDS INR APTT (21-34) SECONDS Puncture Site pCO2 (35-45) mm/Hg pO2 (80-100) mm/Hg HCO3 (21-28) mmol/L ABG pH (7.35-7.45) ABG Total CO2 (22-28) mmol/L ABG O2 Saturation (95-98) % ABG Base Excess (-2.0-3.0) mmol/L Billy Test ABG Potassium (3.6-5.2) mmol/L A-a O2 Difference mm/Hg Respiratory Index Glucose (65-105) mg/dl Lactate (0.7-2.1) mmol/L Mechanical Rate FiO2 % Tidal Volume Sodium (132-148) mmol/L Potassium (3.6-5.2) mmol/L Chloride (98-107) mmol/L Carbon Dioxide (22-30) mmol/L Anion Gap (10-20) BUN (7-17) mg/dL Creatinine (0.7-1.2) MG/DL Est GFR ( Amer) Est GFR (Non-Af Amer) Random Glucose (65-105) mg/dL Calcium (8.6-10.4) mg/dl Phosphorus (2.5-4.5) mg/dL Magnesium (1.6-2.3) mg/dL Total Bilirubin (0.2-1.3) mg/dL AST (14-36) U/L ALT (9-52) U/L Alkaline Phosphatase (38-126) U/L Total Creatine Kinase (30-135) U/L CK-MB (Mass) (0.0-3.38) ng/mL Troponin I, Quant (0.00-0.120) ng/mL Total Protein (6.3-8.3) g/dL Albumin (3.5-5.0) g/dL Globulin (2.2-3.9) gm/dL Albumin/Globulin Ratio (1.0-2.1) Arterial Blood Potassium (3.6-5.2) mmol/L Vancomycin Trough (5.0-10.0) ug/mL Anti-Mitochondrial Ab Negative (Negative) Laboratory Results - last 24 hr 12/24/16 12/24/16 12/25/16 11:33 18:41 05:21 WBC RBC Hgb Hct MCV MCH MCHC RDW Plt Count MPV Neut % (Auto) Lymph % (Auto) [place] % (Auto) Eos % (Auto) Baso % (Auto) Neut # Lymph # [place] # Eos # Baso # Neutrophils % (Manual) Band Neutrophils % Lymphocytes % (Manual) Monocytes % (Manual) Nucleated RBC % Platelet Estimate Large Platelets Hypochromasia (manual) Poikilocytosis (manual Anisocytosis (manual) Microcytosis (manual) Macrocytosis (manual) [place] Cells PT 21.1 H INR 1.9 APTT Puncture Site Lb pCO2 24 L pO2 191 H HCO3 20.3 L ABG pH 7.44 ABG Total CO2 17.0 L ABG O2 Saturation 100.2 H ABG Base Excess -6.0 L Billy Test Pos ABG Potassium 3.7 A-a O2 Difference 349.0 Respiratory Index 1.8 Sodium 138.0 Chloride 112.0 H Glucose 110 H Lactate 1.4 Mechanical Rate 16 FiO2 80.0 Tidal Volume 500 Potassium Carbon Dioxide Anion Gap BUN Creatinine Est GFR ( Amer) Est GFR (Non-Af Amer) Random Glucose Calcium Phosphorus Magnesium Total Bilirubin AST ALT Alkaline Phosphatase Total Creatine Kinase 97 CK-MB (Mass) 1.57 Troponin I, Quant 0.0670 Total Protein Albumin Globulin Albumin/Globulin Ratio Arterial Blood Potassium 3.7 Vancomycin Trough Anti-Mitochondrial Ab Negative 12/25/16 12/25/16 12/25/16 06:07 06:10 06:11 WBC 8.2 RBC 3.42 L Hgb 11.8 Hct 34.9 MCV 102.1 H MCH 34.6 H MCHC 33.9 RDW 22.7 H Plt Count 129 L D MPV 9.2 Neut % (Auto) 86.8 H Lymph % (Auto) 9.0 L [place] % (Auto) 4.2 Eos % (Auto) 0.0 Baso % (Auto) 0.0 Neut # 7.1 H Lymph # 0.7 L [place] # 0.3 Eos # 0.0 Baso # 0.0 Neutrophils % (Manual) 80 H Band Neutrophils % 1 Lymphocytes % (Manual) 13 L Monocytes % (Manual) 6 Nucleated RBC % 1 H Platelet Estimate Normal Large Platelets Present Hypochromasia (manual) Slight Poikilocytosis (manual Slight Anisocytosis (manual) Slight Microcytosis (manual) Slight Macrocytosis (manual) Slight Orin Cells Slight PT 19.4 H INR 1.7 APTT 34 D Puncture Site pCO2 pO2 HCO3 ABG pH ABG Total CO2 ABG O2 Saturation ABG Base Excess Billy Test ABG Potassium A-a O2 Difference Respiratory Index Sodium 139 Chloride 107 Glucose Lactate Mechanical Rate FiO2 Tidal Volume Potassium 3.8 Carbon Dioxide 14 L Anion Gap 22 H BUN 29 H Creatinine 1.1 Est GFR ( Amer) > 60 Est GFR (Non-Af Amer) 51 Random Glucose 106 H Calcium 8.2 L Phosphorus 3.0 Magnesium 1.9 Total Bilirubin 7.6 H AST 201 H D ALT 109 H Alkaline Phosphatase 115 Total Creatine Kinase CK-MB (Mass) Troponin I, Quant Total Protein 6.6 Albumin 2.6 L Globulin 4.0 H Albumin/Globulin Ratio 0.7 L Arterial Blood Potassium Vancomycin Trough 15.3 H Anti-Mitochondrial Ab 12/25/16 06:25 WBC RBC Hgb Hct MCV MCH MCHC RDW Plt Count MPV Neut % (Auto) Lymph % (Auto) [place] % (Auto) Eos % (Auto) Baso % (Auto) Neut # Lymph # [place] # Eos # Baso # Neutrophils % (Manual) Band Neutrophils % Lymphocytes % (Manual) Monocytes % (Manual) Nucleated RBC % Platelet Estimate Large Platelets Hypochromasia (manual) Poikilocytosis (manual Anisocytosis (manual) Microcytosis (manual) Macrocytosis (manual) [place] Cells PT INR APTT Puncture Site pCO2 pO2 HCO3 ABG pH ABG Total CO2 ABG O2 Saturation ABG Base Excess Billy Test ABG Potassium A-a O2 Difference Respiratory Index Sodium Chloride Glucose Lactate Mechanical Rate FiO2 Tidal Volume Potassium Carbon Dioxide Anion Gap BUN Creatinine Est GFR ( Amer) Est GFR (Non-Af Amer) Random Glucose Calcium Phosphorus Magnesium Total Bilirubin AST ALT Alkaline Phosphatase Total Creatine Kinase 74 CK-MB (Mass) 1.02 Troponin I, Quant 0.0830 Total Protein Albumin Globulin Albumin/Globulin Ratio Arterial Blood Potassium Vancomycin Trough Anti-Mitochondrial Ab Critical Care Progress Note - Nutrition Nutrition: Nutrition Category Date Time Status Heart Healthy Diet [DIET] Diets 12/24/16 Lunch Active
[2016-12-25] MEDS ORDERED: Iodixanol 320 MG/ML 100 ML BOTTLE IV ONE (13:38)
[2016-12-25] MEDS ORDERED: Iohexol 240 (50 ml) PO ONE (14:15)
--- NOTE | 2016-12-25 16:27 | CT ---
PROCEDURE: CT Abdomen and Pelvis with contrast HISTORY: hyperbili, LFTs, lipase, abd pain, weight loss COMPARISON: 12/22/2016 TECHNIQUE: Contrast dose: 100 mL Visipaque 320 Precontrast images were acquired. Postcontrast images were acquired in the hepatic arterial and portal venous phase of enhancement. Radiation dose: Total exam DLP = 1615.11 mGy-cm. FINDINGS: LOWER THORAX: Centrilobular pulmonary emphysema. Small right pleural effusion and trace left pleural effusion. Bilateral lower lobe compressive atelectasis. Permanent pacemaker. Mild cardiomegaly. LIVER: Diffusely diminished attenuation consistent with fatty infiltration. Mildly heterogeneous. No abnormal enhancement on arterial phase images. Portal venous phase images demonstrate innumerable very small enhancing nodules throughout the liver. This is suspicious for metastatic disease. These nodules measure up to 7 mm in diameter. No large mass identified. No biliary ductal dilatation. GALLBLADDER AND BILE DUCTS: No cholelithiasis. No pericholecystic fluid. PANCREAS: No pancreatic mass or ductal dilatation. No peripancreatic fluid or edema. SPLEEN: The spleen is significant for a 2.6 cm rounded low-attenuation mass with irregular borders. A 2nd smaller ill-defined mass is identified measuring 7 mm. This is nonspecific. Statistically most likely hemangioma/ lymphangioma. Cannot rule out primary neoplasm or metastasis. ADRENALS: Unremarkable. No mass. KIDNEYS AND URETERS: Numerous bilateral small renal cysts. Many of these renal cysts are hyperdense on precontrast images, most prominently and exophytic cyst in the mid left kidney. No suspicious enhancing renal mass. No calculus or hydronephrosis. VASCULATURE: Unremarkable. No aortic aneurysm. BOWEL: Mural thickening of the transverse and descending colon. Although this portion of the colon is collapsed, there is nevertheless felt to be mural thickening consistent with nonspecific colitis. No bowel obstruction. Nasogastric tube extends to gastric lumen. APPENDIX: Normal appendix. PERITONEUM: Mild ascites. LYMPH NODES: Unremarkable. No enlarged lymph nodes. BLADDER: Decompressed around Brunner catheter balloon. REPRODUCTIVE: Possible small amount of endometrial fluid. Correlate with pelvic ultrasound examination on a nonemergent basis. Endometrial fluid would be abnormal in patient of this age. 1.7 cm anterior subserosal uterine fibroid. BONES: No acute fracture. OTHER FINDINGS: None. IMPRESSION: Fatty infiltration of the liver, heterogeneous. Innumerable small enhancing nodules on portal venous phase images of the liver. Uncertain significance. Consider metastatic disease. Unlikely hepatocellular neoplasm. No evidence of pancreatitis or pancreatic mass. No biliary obstruction. Mild ascites. Small right and trace left pleural effusion with lower lobe compressive atelectasis. Permanent pacemaker. Nasogastric tube. Brunner catheter. Additional minor findings as above.
--- NOTE | 2016-12-25 20:38 | CP.PCM.PN ---
Subjective - Date & Time of Evaluation Date of Evaluation: 12/25/16 Time of Evaluation: 16:30 - Subjective Subjective: Patient remains intubated, sedated; Objective - Vital Signs/Intake and Output Vital Signs (last 24 hours): Temp Pulse Resp BP Pulse Ox 97.4 F L 80 16 111/78 100 12/25/16 20:00 12/25/16 20:00 12/25/16 20:00 12/25/16 19:41 12/25/16 20:00 Intake and Output: 12/25/16 12/26/16 18:59 06:59 Intake Total 373.5 3.4 Output Total 635 50 Balance -261.5 -46.6 - Medications Medications: Current Medications Famotidine (Pepcid) 20 mg PO BID [facility] Last Admin: 12/25/16 17:05 Dose: 20 mg Gabapentin (Neurontin) 100 mg PO BID [facility] Last Admin: 12/25/16 17:05 Dose: 100 mg Heparin Sodium (Porcine) (Heparin) 5,000 units SC Q8 [facility] Hydroxychloroquine Sulfate (Plaquenil) 200 mg PO BID [facility] Last Admin: 12/25/16 17:05 Dose: 200 mg Azithromycin 500 mg/ Sodium (Chloride) 250 mls @ 250 mls/hr IVPB DAILY [facility] Last Admin: 12/25/16 10:08 Dose: 250 mls/hr Cefepime HCl (Maxipime Iv 2 Gm Premix) 100 mls @ 100 mls/hr IVPB Q8H [facility] Last Admin: 12/25/16 17:05 Dose: 100 mls/hr Vancomycin HCl 850 mg/ Sodium (Chloride) 250 mls @ 166.6 mls/hr IVPB Q12H [facility] Last Admin: 12/25/16 11:45 Dose: Not Given Propofol (Diprivan) 100 mls @ 1.71 mls/hr IV .Q24H PRN; Protocol; 5 MCG/KG/MIN PRN Reason: TITRATE PER MD ORDER Last Admin: 12/25/16 11:20 Dose: 1.71 mls/hr Metoprolol Tartrate (Lopressor) 12.5 mg PO Q12 [facility] - Labs Labs: 12/25/16 06:11 12/25/16 06:07 PT 19.4 SECONDS (9.7-12.2) H 12/25/16 06:11 INR 1.7 12/25/16 06:11 APTT 34 SECONDS (21-34) D 12/25/16 06:11 - Constitutional Appears: Non-toxic, No Acute Distress - Head Exam Head Exam: NORMAL INSPECTION - Eye Exam Eye Exam: Scleral icterus. absent: Conjunctival injection - ENT Exam ENT Exam: Mucous Membranes Moist - Neck Exam Neck Exam: Normal Inspection Additional comments: intubated - Respiratory Exam Respiratory Exam: Clear to Ausculation Bilateral. absent: Rhonchi, Wheezes - Cardiovascular Exam Cardiovascular Exam: REGULAR RHYTHM, +S1, +S2 - GI/Abdominal Exam GI & Abdominal Exam: Soft. absent: Distended - Extremities Exam Additional comments: Proximal bilateral leg pitting edema; - Neurological Exam Additional comments: Awakens to noxious stimuli; - Skin Skin Exam: Warm. absent: Cyanosis Assessment and Plan (1) CHF (congestive heart failure) Assessment & Plan: Acute decompensated systolic CHF; intubated after [employer] called for agonal respiration and inability to accurately measure pulse ox; severe LV dysfunction per cardio; hemodynamic parameters improved with small dose B-Beth; Status: Acute (2) Hyperbilirubinemia Assessment & Plan: Likely due to congestive hepatopathy secondary to CHF, however, pancreatic CT today showed multiple small enhancing liver nodules concerning for metastatic disease; will f/u with GI; Status: Acute (3) Pneumonia Assessment & Plan: RUL infiltrate; abx broadened to cefepime, azithromycin and vancomycin; vanco level therapeutic; Status: Acute (4) Pulmonary hypertension Assessment & Plan: Likely secondary to left heart failure; may benefit from diuresis once more stable; Status: Acute (5) Sepsis Assessment & Plan: Secondary to PNA and UTI; on abx, continue; Status: Acute
[2016-12-26 00:53] LABS: LKM-1 Ab (IgG) <=20.0 U (<=20.0)
[2016-12-26] MEDS: Cefepime IV 2 gm in Dextrose 100 ML IVPB SCH ×3 (01:37→17:51)
[2016-12-26 02:09] LABS: IGG SUBCLASS 4 54.8 mg/dL (4.0-86.0)
[2016-12-26 05:56] LABS: ABG ALLEN TEST POS; ABG MECHANICAL RATE 16; ARTERIAL BLOOD HGB O2 SAT 96.7 % (95.0-98.0); ATERIAL BLOOD GAS PEEP 5; CARBOXYHEMOGLOBIN 2.3 % (0.5-1.5); DRAW SITE RB; HHB -0.1 % (0.0-5.0)
[2016-12-26 06:54] LABS: BASO % 0.1 % (0.0-2.0); EOS % 0.4 % (0.0-4.0); HEMATOCRIT 32.2 % (34.0-47.0); LYMPH # 0.8 K/uL (1.0-4.3); LYMPH % 11.6 % (20.0-40.0); MEAN CELL VOLUME 103.8 fL (81.0-99.0); MEAN CORPUSCULAR HEMOGLOBIN 34.7 pg (27.0-31.0); MEAN CORPUSCULAR HGB CONC 33.4 g/dL (33.0-37.0); MEAN PLATELET VOLUME 9.6 fL (7.2-11.7); MONO # 0.4 K/uL (0.0-0.8); MONO % 5.9 % (0.0-10.0); NRBC % 0.8 % (0.0-2.0); RED CELL DISTRIBUTION WIDTH 22.9 % (11.5-14.5); WHITE BLOOD COUNT 7.1 K/uL (4.8-10.8)
[2016-12-26 06:56] LABS: CHLORIDE 107 mmol/L (98-107)
[2016-12-26 06:57] LABS: POTASSIUM 3.3 mmol/L (3.6-5.2); SODIUM 141 mmol/L (132-148)
[2016-12-26 06:59] LABS: GFR AFRICAN-AMERICAN > 60
[2016-12-26 07:00] LABS: ALB/GLOB RATIO 0.6 (1.0-2.1); ALKALINE PHOSPHATASE 121 U/L (38-126); ALT/SGPT 105 U/L (9-52); AST/SGOT 177 U/L (14-36); BILIRUBIN,TOTAL 8.3 mg/dL (0.2-1.3); BLOOD UREA NITROGEN 30 mg/dL (7-17); CALCIUM 7.8 mg/dl (8.6-10.4); CARBON DIOXIDE 20 mmol/L (22-30); GLUCOSE,RANDOM 140 mg/dL (65-105); PHOSPHOROUS 2.4 mg/dL (2.5-4.5)
--- NOTE | 2016-12-26 07:16 | CP.PCM.PN ---
Subjective - Date & Time of Evaluation Date of Evaluation: 12/26/16 Time of Evaluation: 07:12 Objective - Vital Signs/Intake and Output Vital Signs (last 24 hours): Temp Pulse Resp BP Pulse Ox 97.7 F 69 17 93/66 L 100 12/26/16 04:00 12/26/16 06:00 12/26/16 06:00 12/26/16 05:41 12/26/16 06:00 Intake and Output: 12/26/16 12/26/16 06:59 18:59 Intake Total 650.4 Output Total 400 Balance 250.4 - Medications Medications: Current Medications Famotidine (Pepcid) 20 mg PO BID [facility] Last Admin: 12/25/16 17:05 Dose: 20 mg Gabapentin (Neurontin) 100 mg PO BID [facility] Last Admin: 12/25/16 17:05 Dose: 100 mg Heparin Sodium (Porcine) (Heparin) 5,000 units SC Q8 [facility] Last Admin: 12/26/16 05:08 Dose: 5,000 units Hydroxychloroquine Sulfate (Plaquenil) 200 mg PO BID [facility] Last Admin: 12/25/16 17:05 Dose: 200 mg Azithromycin 500 mg/ Sodium (Chloride) 250 mls @ 250 mls/hr IVPB DAILY [facility] Last Admin: 12/25/16 10:08 Dose: 250 mls/hr Cefepime HCl (Maxipime Iv 2 Gm Premix) 100 mls @ 100 mls/hr IVPB Q8H [facility] Last Admin: 12/26/16 01:37 Dose: 100 mls/hr Vancomycin HCl 850 mg/ Sodium (Chloride) 250 mls @ 166.6 mls/hr IVPB Q12H [facility] Last Admin: 12/25/16 22:50 Dose: 166.6 mls/hr Propofol (Diprivan) 100 mls @ 1.71 mls/hr IV .Q24H PRN; Protocol; 5 MCG/KG/MIN PRN Reason: TITRATE PER MD ORDER Last Admin: 12/26/16 05:08 Dose: 1.71 mls/hr Metoprolol Tartrate (Lopressor) 12.5 mg PO Q12 [facility] Last Admin: 12/25/16 22:50 Dose: 12.5 mg - Labs Labs: 12/26/16 06:47 12/26/16 06:42 PT 19.4 SECONDS (9.7-12.2) H 12/25/16 06:11 INR 1.7 12/25/16 06:11 APTT 34 SECONDS (21-34) D 12/25/16 06:11
--- NOTE | 2016-12-26 09:44 | RAD ---
HISTORY: intubated COMPARISON: 12/25/2016 FINDINGS: LUNGS: Lines and tubes in stable position. Persistent dense ill-defined consolidative changes in the right upper to mid lung zone and to a lesser extent left lung base. PLEURA: No significant pleural effusion identified, no pneumothorax apparent. CARDIOVASCULAR: Cardiomegaly. Left-sided pacemaker. OSSEOUS STRUCTURES: No significant abnormalities. VISUALIZED UPPER ABDOMEN: Normal. OTHER FINDINGS: None. IMPRESSION: No significant interval change.
[2016-12-26] MEDS ORDERED: Potassium Chloride 20 mEq/15 ml LIQ UD PO ONE (09:46)
[2016-12-26] MEDS: Azithromycin 500 MG in Sodium Chloride 0.9% 250 ML IVPB SCH (09:52)
[2016-12-26] MEDS ORDERED: Vancomycin 1 gm/NS 200 ml 200 ML IVPB SCH (10:00)
--- NOTE | 2016-12-26 10:47 | CP.PCM.PN ---
Subjective - Date & Time of Evaluation Date of Evaluation: 12/26/16 Time of Evaluation: 10:43 - Subjective Subjective: RFV: Jaundice S: No acute events. Remains intubated/sedated. On vent. Objective - Vital Signs/Intake and Output Vital Signs (last 24 hours): Temp Pulse Resp BP Pulse Ox 96.4 F L 68 16 97/71 L 99 12/26/16 08:00 12/26/16 07:19 12/26/16 07:19 12/26/16 10:35 12/26/16 07:19 Intake and Output: 12/26/16 12/26/16 06:59 18:59 Intake Total 650.4 43.4 Output Total 400 25 Balance 250.4 18.4 - Medications Medications: Current Medications Famotidine (Pepcid) 20 mg PO BID [facility] Last Admin: 12/26/16 09:52 Dose: 20 mg Gabapentin (Neurontin) 100 mg PO BID [facility] Last Admin: 12/26/16 09:52 Dose: 100 mg Heparin Sodium (Porcine) (Heparin) 5,000 units SC Q8 [facility] Last Admin: 12/26/16 05:08 Dose: 5,000 units Hydroxychloroquine Sulfate (Plaquenil) 200 mg PO BID [facility] Last Admin: 12/26/16 09:52 Dose: 200 mg Azithromycin 500 mg/ Sodium (Chloride) 250 mls @ 250 mls/hr IVPB DAILY [facility] Last Admin: 12/26/16 09:52 Dose: 250 mls/hr Cefepime HCl (Maxipime Iv 2 Gm Premix) 100 mls @ 100 mls/hr IVPB Q8H [facility] Last Admin: 12/26/16 09:55 Dose: 100 mls/hr Vancomycin HCl 850 mg/ Sodium (Chloride) 250 mls @ 166.6 mls/hr IVPB Q12H [facility] Last Admin: 12/25/16 22:50 Dose: 166.6 mls/hr Propofol (Diprivan) 100 mls @ 1.71 mls/hr IV .Q24H PRN; Protocol; 5 MCG/KG/MIN PRN Reason: TITRATE PER MD ORDER Last Titration: 12/26/16 09:00 Dose: 8 mcg/kg/min Metoprolol Tartrate (Lopressor) 12.5 mg PO Q12 [facility] Last Admin: 12/26/16 09:56 Dose: Not Given - Labs Labs: 12/26/16 06:47 12/26/16 06:42 PT 19.4 SECONDS (9.7-12.2) H 12/25/16 06:11 INR 1.7 12/25/16 06:11 APTT 34 SECONDS (21-34) D 12/25/16 06:11 - Constitutional Appears: Chronically Ill - Head Exam Head Exam: ATRAUMATIC, NORMOCEPHALIC - Eye Exam Eye Exam: Scleral icterus - Respiratory Exam Additional comments: on vent - Cardiovascular Exam Cardiovascular Exam: +S1, +S2 - GI/Abdominal Exam GI & Abdominal Exam: Soft - Skin Skin Exam: Dry, Warm Assessment and Plan - Assessment and Plan (Free Text) Assessment: 61 year old female with h/o CVA, SLE, GERD, CHF, AICD, admitted with pneumonia, CHF, jaundice, and respiratory failure. 1. Jaundice 2. Elevated LFTs Plan: - CT scan reviewed - no signs of biliary obstruction or pancreatic lesion - evidence of parenchymal liver disease and nodules which could represent metastatic lesions, though inconclusive - when medically stable, would consider CT guided liver biopsy of liver parenchyma and if possible liver nodules - in the meantime, recommend supportive care per ICU - wean from vent
--- NOTE | 2016-12-26 11:27 | CP.PCM.PN ---
Subjective - Date & Time of Evaluation Date of Evaluation: 12/26/16 Time of Evaluation: 11:00 - Subjective Subjective: Patient is currently intubated at this time and was on propofol. She was able to briefly open her eyes when name was called. Per staff the patient was changed over to pressure support today. Patient came on 12/22 with shortness of breath and was intubated on 12/24 and brought to the ICU due to respiratory distress. There is a PMHX signifigant for SLE, Severe Pulmonary HTN, CHF, AICD, CVA with left sided deficit, and also HTN. She currently is being treated for CHF and also Pneumonia as well as elevated LFT and bilirubin. Patient is on Cefepime, Azithromycin, and Vancomycin. The only positive culture so far is urine for E coli Objective - Vital Signs/Intake and Output Vital Signs (last 24 hours): Temp Pulse Resp BP Pulse Ox 96.4 F L 68 16 97/71 L 99 12/26/16 08:00 12/26/16 07:19 12/26/16 07:19 12/26/16 10:35 12/26/16 07:19 Intake and Output: 12/26/16 12/26/16 06:59 18:59 Intake Total 650.4 43.4 Output Total 400 25 Balance 250.4 18.4 - Medications Medications: Current Medications Famotidine (Pepcid) 20 mg PO BID [facility] Last Admin: 12/26/16 09:52 Dose: 20 mg Gabapentin (Neurontin) 100 mg PO BID [facility] Last Admin: 12/26/16 09:52 Dose: 100 mg Heparin Sodium (Porcine) (Heparin) 5,000 units SC Q8 [facility] Last Admin: 12/26/16 05:08 Dose: 5,000 units Hydroxychloroquine Sulfate (Plaquenil) 200 mg PO BID [facility] Last Admin: 12/26/16 09:52 Dose: 200 mg Azithromycin 500 mg/ Sodium (Chloride) 250 mls @ 250 mls/hr IVPB DAILY [facility] Last Admin: 12/26/16 09:52 Dose: 250 mls/hr Cefepime HCl (Maxipime Iv 2 Gm Premix) 100 mls @ 100 mls/hr IVPB Q8H [facility] Last Admin: 12/26/16 09:55 Dose: 100 mls/hr Vancomycin HCl 850 mg/ Sodium (Chloride) 250 mls @ 166.6 mls/hr IVPB Q12H [facility] Last Admin: 12/25/16 22:50 Dose: 166.6 mls/hr Propofol (Diprivan) 100 mls @ 1.71 mls/hr IV .Q24H PRN; Protocol; 5 MCG/KG/MIN PRN Reason: TITRATE PER MD ORDER Last Titration: 12/26/16 09:00 Dose: 8 mcg/kg/min Metoprolol Tartrate (Lopressor) 12.5 mg PO Q12 [facility] Last Admin: 12/26/16 09:56 Dose: Not Given - Labs Labs: 12/26/16 06:47 12/26/16 06:42 PT 19.4 SECONDS (9.7-12.2) H 12/25/16 06:11 INR 1.7 12/25/16 06:11 APTT 34 SECONDS (21-34) D 12/25/16 06:11 - Constitutional Appears: Cachectic, Chronically Ill - Head Exam Head Exam: absent: NORMAL INSPECTION Additional comments: Currently intubated on sedation - ENT Exam ENT Exam: Mucous Membranes Moist - Respiratory Exam Respiratory Exam: Decreased Breath Sounds, Rales, Rhonchi Additional comments: Currently mechanical intubation on pressure support/CPAP setting - GI/Abdominal Exam GI & Abdominal Exam: Soft. absent: Tenderness - Neurological Exam Neurological Exam: Altered. absent: Alert, Awake, CN II-XII Intact, Normal Gait , Oriented x3 Neuro motor strength exam: Left Upper Extremity: 0, Right Upper Extremity: 0, Left Lower Extremity: 0, Right Lower Extremity: 0 Additional comments: Currently on sedation with propofol - Skin Skin Exam: Normal Color, Warm Assessment and Plan - Assessment and Plan (Free Text) Assessment: Respiratory failure 12/26: Probably multiple etiology including pneumonia, CHF, and severe pulmonary HTN. Remains intubated at this time. Now on PS/CPAP settings. Hopefully can extubate soon. On abx Cefepime, Vancomycin, and Azithromycin IV. Pneumonia 12/26: On abx Cefepime, Vancomycin, and Azithromycin IV. CXR on admission showed extensive RUL infiltrate. - Azithromycin IVPB CHF systolic and severe pulmonary HTN. 12/26: Recent echo with EF of 20%. Per cardiology right and left systolic heart failure and severe mitral regurgitation Patient has AICD, on low dose lopressor BID Abdominal pain 12/26: The Tbillirubin remains elevated. AST and ALT both mildy elevated as well. Per GI there is evidence of parenchymal liver disease and nodules which could represent metastatic lesions, though inconclusive. At some point when stable maybe needs liver biopsy From before: "CT Abdomen and Pelvis w/o Po IV contrast : Small to moderate right pleural effusion. Trace ascites. Nonspecific presacral edema. Mild generalized anasarca. Mild hepatomegaly with fatty infiltration of the liver. No evidence of biliary obstruction. No evidence of cholecystitis. Mild nonspecific presacral edema, possibly related generalized anasarca. Additional minor findings as above. - RUQ US 12/23 - Right renal cysts. Incidental note is made of small right pleural effusion. Echogenic liver may be seen in setting of hepatic parenchymal disease or fatty infiltration. Small perihepatic ascites. Small fluid is noted by the gallbladder fossa. Gallbladder wall thickening/ pericholecystic edema without evidence of gallstones. Negative sonographic Hutchinson's sign as assessed by the vector control specialist. No portal vein thrombosis" UTI 12/26: Culture positive for Ecoli Currently on Cefepime. History of CVA Weakness - Likely debilitated from ongoing infectious process. - Patient also with history of CVA and residual weakness. She cannot ambulate without assistance. - Head CT: No evidence of acute intracranial hemorrhage acute territorial infarct mass effect or midline shift. Moderate-size encephalomalacia at the left temporal parietal lobe suggestive of chronic left MCA territory infarct. Moderate atrophy and white matter changes. Hx of Lupus (systemic lupus erythematosus) Plaquenil 200 mg PO BID [facility] Folic Acid 1 mg PO daily Abnormal thyroid blood test - T3 and T3 are low on admission with normal TSH. HTN (hypertension) Low dose lopressor BID Systolic BPs in the 90s Prophylactic measure - Heparin SC Q8H - Pepcid 20 mg PO daily
[2016-12-26] MEDS: DOPamine 400mg/250ml D5W 250 ML IV PRN ×2 (12:20→23:14)
--- NOTE | 2016-12-26 14:16 | CP.CCUPN ---
CCU Subjective - Physician Review Subjective (Free Text): 12/26/16 14:15 Pt seen/examined. intubated / sedated. LUIS o/n AF/VSS arousable on sedation. HEENT: AUTUMN. Supple Lungs: Coarse B/L CVS: S1, S2, RRR Abd: soft, NT/ND, BS+ve Ext: No edema Neuro: sedated; COON spontaneously Labs / imaging / meds reviewed independently as noted below Assessment and Plan 61F with lupus, pulmonary hypertension, heart failure with AICD, CVA with left sided deficit, and HTN acute hypoxic resp failure / severe sepsis / PNA possible aspiration Neuro: sedation vacation; assess mental status CVS: hemodynamics acceptable; cont care Pulmonology: wean vent as tolerated. trial of SBT today and extubate if passes GI: cont TF Heme: DVT PPx Endocrine: Rheumatology Plaquenil 200 mg po BID Nephro: Monitor I&O ID: Possible aspiration pneumonia; Cefepime 2 gm IVPB Q8H (12/24/16); Azithromycin 500 mg IVPB daily; Vancomycin 850mg IVPB Q12H; f/u Cx Prophylaxis: Heparin 5000 U SC Q8H; Pepcid 20 mg po daily Nigel Posey MD CC Time spent 45min CCU Objective - Vital Signs / Intake & Output Vital Signs (Last 4 hours): Vital Signs Pulse Resp BP 12/26/16 11:40 90 16 12/26/16 11:00 94 H 22 12/26/16 10:46 97 H 24 89/68 L 12/26/16 10:44 89 26 H 12/26/16 10:35 97/71 L Intake and Output (Last 8hrs): Intake & Output 12/25/16 12/26/16 12/26/16 22:59 06:59 14:59 Intake Total 73.6 583.6 324.8 Output Total 400 250 55 Balance -326.4 333.6 269.8 Weight 124 lb 11.2 oz Intake: Intake, IV Amount 13.6 363.6 254.8 Right Proximal Port 13.6 13.6 4.8 Internal Jugular Right Medial Port 350 Internal Jugular Right Distal Port 250 Internal Jugular Tube Feeding 60 160 70 Other 60 Output: Urine 400 250 55 Urethral ([place]) 400 250 55 Other: # Bowel Movements 1 1 - Physical Exam Upper Extremity: Positive for: Other (scratches to upper extremities noted) Lower Extremity: Positive for: Other (1+ pitting edema to bilateral lower extremities ) Neurological: Positive for: Other (responsive to pain, corneal reflex, gag and cough reflexes intact, pupils reactive to light) Skin: Positive for: Dry - Medications Active Medications: Active Medications Generic Name Dose Route Start Last Admin Trade Name Freq PRN Reason Stop Dose Admin Famotidine 20 mg 12/23/16 10:00 12/26/16 09:52 Pepcid PO 20 mg BID [facility] Administration Gabapentin 100 mg 12/23/16 10:00 12/26/16 09:52 Neurontin PO 100 mg BID [facility] Administration Heparin Sodium (Porcine) 5,000 units 12/25/16 22:00 12/26/16 13:31 Heparin SC 5,000 units Q8 [facility] Administration Hydroxychloroquine Sulfate 200 mg 12/23/16 10:00 12/26/16 09:52 Plaquenil PO 200 mg BID [facility] Administration Azithromycin 500 mg/ Sodium 250 mls @ 250 mls/hr 12/23/16 10:00 12/26/16 09:52 Chloride IVPB 250 mls/hr DAILY [facility] Administration Cefepime HCl 100 mls @ 100 mls/hr 12/24/16 18:00 12/26/16 09:55 Maxipime Iv 2 Gm Premix IVPB 100 mls/hr Q8H [facility] Administration Vancomycin HCl 850 mg/ Sodium 250 mls @ 166.6 mls/hr 12/25/16 11:30 12/26/16 11 :35 Chloride IVPB 166.6 mls/hr Q12H [facility] Administration Propofol 100 mls @ 1.71 mls/hr 12/25/16 11:07 12/26/16 09:00 Diprivan IV 8 mcg/kg/min .Q24H PRN Titration TITRATE PER MD ORDER Protocol 5 MCG/KG/MIN Metoprolol Tartrate 12.5 mg 12/25/16 22:00 12/26/16 09:56 Lopressor PO Not Given Q12 [facility] - Patient Studies Lab Studies: Microbiology Studies 12/22/16 18:10 Blood Culture - Preliminary Blood NO GROWTH AFTER 3 DAYS 12/24/16 Unknown MRSA Culture (Admit) - Final Nose MRSA NOT DETECTED Lab Studies 12/26/16 12/26/16 12/26/16 Range/Units 06:47 06:42 05:25 WBC 7.1 (4.8-10.8) K/uL RBC 3.10 L (3.80-5.20) Mil/uL Hgb 10.7 L (11.0-16.0) g/dL Hct 32.2 L (34.0-47.0) % MCV 103.8 H (81.0-99.0) fL MCH 34.7 H (27.0-31.0) pg MCHC 33.4 (33.0-37.0) g/dL RDW 22.9 H (11.5-14.5) % Plt Count 104 L D (130-400) K/uL MPV 9.6 (7.2-11.7) fL Neut % (Auto) 82.0 H (50.0-75.0) % Lymph % (Auto) 11.6 L (20.0-40.0) % [place] % (Auto) 5.9 (0.0-10.0) % Eos % (Auto) 0.4 (0.0-4.0) % Baso % (Auto) 0.1 (0.0-2.0) % Neut # 5.8 (1.8-7.0) K/uL Lymph # 0.8 L (1.0-4.3) K/uL [place] # 0.4 (0.0-0.8) K/uL Eos # 0.0 (0.0-0.7) K/uL Baso # 0.0 (0.0-0.2) K/uL Differential Comment Puncture Site Rb pCO2 26 L (35-45) mm/Hg pO2 133 H (80-100) mm/Hg HCO3 19.5 L (21-28) mmol/L ABG pH 7.41 (7.35-7.45) ABG Total CO2 17.3 L (22-28) mmol/L ABG O2 Saturation 100.1 H (95-98) % ABG Base Excess -6.9 L (-2.0-3.0) mmol/L ABG Hemoglobin 10.5 L (11.7-17.4) g/dL ABG Carboxyhemoglobin 2.3 H (0.5-1.5) % POC ABG HHb (Measured) -0.1 L (0.0-5.0) % ABG Methemoglobin 1.0 (0.0-3.0) % Billy Test Pos A-a O2 Difference 120.0 mm/Hg Respiratory Index 0.9 Hgb O2 Saturation 96.7 (95.0-98.0) % Mechanical Rate 16 FiO2 40.0 % Tidal Volume 500 PEEP 5 Sodium 141 (132-148) mmol/L Potassium 3.3 L (3.6-5.2) mmol/L Chloride 107 (98-107) mmol/L Carbon Dioxide 20 L (22-30) mmol/L Anion Gap 17 (10-20) BUN 30 H (7-17) mg/dL Creatinine 1.1 (0.7-1.2) MG/DL Est GFR ( Amer) > 60 Est GFR (Non-Af Amer) 51 Random Glucose 140 H (65-105) mg/dL Calcium 7.8 L (8.6-10.4) mg/dl Phosphorus 2.4 L (2.5-4.5) mg/dL Magnesium 2.0 (1.6-2.3) mg/dL Total Bilirubin 8.3 H (0.2-1.3) mg/dL AST 177 H (14-36) U/L ALT 105 H (9-52) U/L Alkaline Phosphatase 121 (38-126) U/L Total Protein 6.0 L (6.3-8.3) g/dL Albumin 2.3 L (3.5-5.0) g/dL Globulin 3.7 (2.2-3.9) gm/dL Albumin/Globulin Ratio 0.6 L (1.0-2.1) IgG1 (382-929) mg/dL IgG2 (241-700) mg/dL IgG3 (22-178) mg/dL IgG4 (4.0-86.0) mg/dL Actin IgG Antibody (<20) U Liver/Kid Microsomes Ab (<=20.0) U 12/24/16 12/23/16 Range/Units 11:33 13:54 WBC (4.8-10.8) K/uL RBC (3.80-5.20) Mil/uL Hgb (11.0-16.0) g/dL Hct (34.0-47.0) % MCV (81.0-99.0) fL MCH (27.0-31.0) pg MCHC (33.0-37.0) g/dL RDW (11.5-14.5) % Plt Count (130-400) K/uL MPV (7.2-11.7) fL Neut % (Auto) (50.0-75.0) % Lymph % (Auto) (20.0-40.0) % [place] % (Auto) (0.0-10.0) % Eos % (Auto) (0.0-4.0) % Baso % (Auto) (0.0-2.0) % Neut # (1.8-7.0) K/uL Lymph # (1.0-4.3) K/uL [place] # (0.0-0.8) K/uL Eos # (0.0-0.7) K/uL Baso # (0.0-0.2) K/uL Differential Comment Puncture Site pCO2 (35-45) mm/Hg pO2 (80-100) mm/Hg HCO3 (21-28) mmol/L ABG pH (7.35-7.45) ABG Total CO2 (22-28) mmol/L ABG O2 Saturation (95-98) % ABG Base Excess (-2.0-3.0) mmol/L ABG Hemoglobin (11.7-17.4) g/dL ABG Carboxyhemoglobin (0.5-1.5) % POC ABG HHb (Measured) (0.0-5.0) % ABG Methemoglobin (0.0-3.0) % Billy Test A-a O2 Difference mm/Hg Respiratory Index Hgb O2 Saturation (95.0-98.0) % Mechanical Rate FiO2 % Tidal Volume PEEP Sodium (132-148) mmol/L Potassium (3.6-5.2) mmol/L Chloride (98-107) mmol/L Carbon Dioxide (22-30) mmol/L Anion Gap (10-20) BUN (7-17) mg/dL Creatinine (0.7-1.2) MG/DL Est GFR ( Amer) Est GFR (Non-Af Amer) Random Glucose (65-105) mg/dL Calcium (8.6-10.4) mg/dl Phosphorus (2.5-4.5) mg/dL Magnesium (1.6-2.3) mg/dL Total Bilirubin (0.2-1.3) mg/dL AST (14-36) U/L ALT (9-52) U/L Alkaline Phosphatase (38-126) U/L Total Protein (6.3-8.3) g/dL Albumin (3.5-5.0) g/dL Globulin (2.2-3.9) gm/dL Albumin/Globulin Ratio (1.0-2.1) IgG1 1430 H (382-929) mg/dL IgG2 245 (241-700) mg/dL IgG3 77 (22-178) mg/dL IgG4 54.8 (4.0-86.0) mg/dL Actin IgG Antibody 64 H (<20) U Liver/Kid Microsomes Ab <=20.0 (<=20.0) U Laboratory Results - last 24 hr 12/23/16 12/24/16 12/26/16 13:54 11:33 05:25 WBC RBC Hgb Hct MCV MCH MCHC RDW Plt Count MPV Neut % (Auto) Lymph % (Auto) [place] % (Auto) Eos % (Auto) Baso % (Auto) Neut # Lymph # [place] # Eos # Baso # Differential Comment Puncture Site Rb pCO2 26 L pO2 133 H HCO3 19.5 L ABG pH 7.41 ABG Total CO2 17.3 L ABG O2 Saturation 100.1 H ABG Base Excess -6.9 L ABG Hemoglobin 10.5 L ABG Carboxyhemoglobin 2.3 H POC ABG HHb (Measured) -0.1 L ABG Methemoglobin 1.0 Billy Test Pos A-a O2 Difference 120.0 Respiratory Index 0.9 Hgb O2 Saturation 96.7 Mechanical Rate 16 FiO2 40.0 Tidal Volume 500 PEEP 5 Sodium Potassium Chloride Carbon Dioxide Anion Gap BUN Creatinine Est GFR ( Amer) Est GFR (Non-Af Amer) Random Glucose Calcium Phosphorus Magnesium Total Bilirubin AST ALT Alkaline Phosphatase Total Protein Albumin Globulin Albumin/Globulin Ratio IgG1 1430 H IgG2 245 IgG3 77 IgG4 54.8 Actin IgG Antibody 64 H Liver/Kid Microsomes Ab <=20.0 12/26/16 12/26/16 06:42 06:47 WBC 7.1 RBC 3.10 L Hgb 10.7 L Hct 32.2 L MCV 103.8 H MCH 34.7 H MCHC 33.4 RDW 22.9 H Plt Count 104 L D MPV 9.6 Neut % (Auto) 82.0 H Lymph % (Auto) 11.6 L [place] % (Auto) 5.9 Eos % (Auto) 0.4 Baso % (Auto) 0.1 Neut # 5.8 Lymph # 0.8 L [place] # 0.4 Eos # 0.0 Baso # 0.0 Differential Comment Puncture Site pCO2 pO2 HCO3 ABG pH ABG Total CO2 ABG O2 Saturation ABG Base Excess ABG Hemoglobin ABG Carboxyhemoglobin POC ABG HHb (Measured) ABG Methemoglobin Billy Test A-a O2 Difference Respiratory Index Hgb O2 Saturation Mechanical Rate FiO2 Tidal Volume PEEP Sodium 141 Potassium 3.3 L Chloride 107 Carbon Dioxide 20 L Anion Gap 17 BUN 30 H Creatinine 1.1 Est GFR ( Amer) > 60 Est GFR (Non-Af Amer) 51 Random Glucose 140 H Calcium 7.8 L Phosphorus 2.4 L Magnesium 2.0 Total Bilirubin 8.3 H AST 177 H ALT 105 H Alkaline Phosphatase 121 Total Protein 6.0 L Albumin 2.3 L Globulin 3.7 Albumin/Globulin Ratio 0.6 L IgG1 IgG2 IgG3 IgG4 Actin IgG Antibody Liver/Kid Microsomes Ab Fingerstick Blood Sugar Results: 105
[2016-12-27] MEDS: Cefepime IV 2 gm in Dextrose 100 ML IVPB SCH ×3 (01:09→17:44)
[2016-12-27 04:40] LABS: ABG MECHANICAL RATE 16; ARTERIAL BLOOD HGB O2 SAT 96.9 % (95.0-98.0); ATERIAL BLOOD GAS PEEP 5; CARBOXYHEMOGLOBIN 2.1 % (0.5-1.5); DRAW SITE RB; HHB -0.2 % (0.0-5.0); METHEMOGLOBIN 1.1 % (0.0-3.0)
[2016-12-27 06:21] LABS: BASO % 0.1 % (0.0-2.0); EOS % 0.1 % (0.0-4.0); HEMATOCRIT 33.1 % (34.0-47.0); LYMPH # 1.1 K/uL (1.0-4.3); LYMPH % 8.6 % (20.0-40.0); MEAN CELL VOLUME 103.1 fL (81.0-99.0); MEAN CORPUSCULAR HEMOGLOBIN 34.2 pg (27.0-31.0); MEAN CORPUSCULAR HGB CONC 33.2 g/dL (33.0-37.0); MEAN PLATELET VOLUME 9.7 fL (7.2-11.7); MONO # 0.3 K/uL (0.0-0.8); MONO % 2.6 % (0.0-10.0); NRBC % 0.8 % (0.0-2.0); PLATELET COUNT 62 K/uL (130-400); RED CELL DISTRIBUTION WIDTH 23.6 % (11.5-14.5); WHITE BLOOD COUNT 12.4 K/uL (4.8-10.8)
[2016-12-27 06:33] LABS: POTASSIUM 3.7 mmol/L (3.6-5.2)
[2016-12-27 06:35] LABS: ALB/GLOB RATIO 0.5 (1.0-2.1); BILIRUBIN,TOTAL 8.4 mg/dL (0.2-1.3); PHOSPHOROUS 2.4 mg/dL (2.5-4.5); TOTAL PROTEIN 6.4 g/dL (6.3-8.3)
[2016-12-27] MEDS: Azithromycin 500 MG in Sodium Chloride 0.9% 250 ML IVPB SCH (09:35)
--- NOTE | 2016-12-27 09:37 | RAD ---
PROCEDURE: CHEST RADIOGRAPH, 1 VIEW HISTORY: intubated patient COMPARISON: 12/26/2016 FINDINGS: LUNGS: Lines and tubes in stable position. Left-sided pacemaker. Persistent ill-defined consolidative changes within the right upper to mid lung zone and to a lesser extent left lung base. PLEURA: As above. CARDIOVASCULAR: Left-sided pacemaker. OSSEOUS STRUCTURES: No significant abnormalities. VISUALIZED UPPER ABDOMEN: Normal. OTHER FINDINGS: None. IMPRESSION: No significant interval change.
[2016-12-27 10:30] LABS: EOSINOPHIL 1 % (0-4); NEUTROPHIL 87 % (50-75); TOTAL CELLS COUNTED 100
[2016-12-27 10:34] LABS: LARGE PLATELETS PRESENT
--- NOTE | 2016-12-27 10:34 | CP.PCM.PN ---
Subjective - Date & Time of Evaluation Date of Evaluation: 12/27/16 Time of Evaluation: 10:32 - Subjective Subjective: RFV: Jaundice S: Remains intubated. sedated. Objective - Vital Signs/Intake and Output Vital Signs (last 24 hours): Temp Pulse Resp BP Pulse Ox 96.7 F L 87 16 111/79 100 12/27/16 08:00 12/27/16 09:00 12/27/16 09:00 12/27/16 08:56 12/27/16 09:00 Intake and Output: 12/27/16 12/27/16 06:59 18:59 Intake Total Output Total Balance - Medications Medications: Current Medications Famotidine (Pepcid) 20 mg PO BID [facility] Last Admin: 12/27/16 09:36 Dose: 20 mg Gabapentin (Neurontin) 100 mg PO BID [facility] Last Admin: 12/27/16 09:36 Dose: 100 mg Heparin Sodium (Porcine) (Heparin) 5,000 units SC Q8 [facility] Last Admin: 12/27/16 05:12 Dose: 5,000 units Hydroxychloroquine Sulfate (Plaquenil) 200 mg PO BID [facility] Last Admin: 12/27/16 09:38 Dose: 200 mg Azithromycin 500 mg/ Sodium (Chloride) 250 mls @ 250 mls/hr IVPB DAILY [facility] Last Admin: 12/27/16 09:35 Dose: 250 mls/hr Cefepime HCl (Maxipime Iv 2 Gm Premix) 100 mls @ 100 mls/hr IVPB Q8H [facility] Last Admin: 12/27/16 10:30 Dose: 100 mls/hr Vancomycin HCl 850 mg/ Sodium (Chloride) 250 mls @ 166.6 mls/hr IVPB Q12H [facility] Last Admin: 12/26/16 23:13 Dose: 166.6 mls/hr Propofol (Diprivan) 100 mls @ 1.71 mls/hr IV .Q24H PRN; Protocol; 5 MCG/KG/MIN PRN Reason: TITRATE PER MD ORDER Last Titration: 12/27/16 06:50 Dose: 8 mcg/kg/min Dopamine HCl/Dextrose (Dopamine 400mg/250ml D5w) 250 mls @ 10.606 mls/hr IV .[id number] PRN; Protocol; 5 MCG/KG/MIN PRN Reason: TITRATE PER MD ORDER Last Titration: 12/27/16 05:13 Dose: 4 mcg/kg/min Metoprolol Tartrate (Lopressor) 12.5 mg PO Q12 [facility] Last Admin: 12/27/16 09:37 Dose: Not Given - Labs Labs: 12/27/16 06:13 12/27/16 06:13 PT 19.4 SECONDS (9.7-12.2) H 12/25/16 06:11 INR 1.7 12/25/16 06:11 APTT 34 SECONDS (21-34) D 12/25/16 06:11 - Constitutional Appears: No Acute Distress - Head Exam Head Exam: ATRAUMATIC, NORMOCEPHALIC - Eye Exam Eye Exam: Scleral icterus - Cardiovascular Exam Cardiovascular Exam: +S1, +S2 - GI/Abdominal Exam GI & Abdominal Exam: Soft, Tenderness Assessment and Plan - Assessment and Plan (Free Text) Assessment: 61 year old female with h/o CVA, SLE, GERD, CHF, AICD, admitted with pneumonia, CHF, jaundice, and respiratory failure. 1. Jaundice 2. Elevated LFTs 3. Thrombocytopenia Plan: - CT scan reviewed - no signs of biliary obstruction or pancreatic lesion - evidence of parenchymal liver disease and nodules which could represent metastatic lesions, though inconclusive - when medically stable, would consider CT guided liver biopsy of liver parenchyma and if possible liver nodules - in the meantime, recommend supportive care per ICU - wean from vent per ICU - consider hematology consultation for thrombocytopenia
--- NOTE | 2016-12-27 11:28 | CP.CCUPN ---
CCU Subjective - Physician Review Events Since Last Encounter (Free Text): 12/27/16 11:28 Patient is a 61-year-old female with history of lupus disease, AICD, CVA with left-sided weakness, hypertension brought into the emergency room because of the shortness of breath and dry cough. Patient in the emergency room was having dyspnea, placed on BiPAP. Patient was admitted to the initially the floor, and the following that the patient become more dyspneic, and become hypotensive and hypoxic. And patient was intubated and brought to the ICU following that. Currently patient is on ventilator. She is responding to deep stimuli. On sedation. Vital signs reviewed Low blood pressure noted, currently on dopamine. Heart rate is stable. On sedation. Chest bilateral good air entry, regular heart sound noted. No secretions noted from the endotracheal tube. Abdomen soft nontender. Extended is no pedal edema Patient's labs reviewed Low platelet count noted, I discontinued heparin. Patient chest x-ray showing right upper lung pneumonia, given the lupus, and immunosuppressive condition underlying TB process cannot be ruled out, will get sputum culture Possible underlying heart failure and associated aspirated failure. Echocardiogram currently the report is pending Diarrhea noted, so stool C. difficile being sent Assessment and recommendation: 61-year-old female with history of lupus disease, hypertension, CVA and defibrillator, congestive heart failure likely. Complicated with acute respiratory failure, and associated aspiration pneumonia , versus atypical pneumonia. On antibiotic. We'll continue to monitor the patient, currently not a candidate weaning because of the unstable blood pressure. And will follow the patient 12/27/16 11:28 CCU Objective - Vital Signs / Intake & Output Vital Signs (Last 4 hours): Vital Signs Temp Pulse Resp BP Pulse Ox 12/27/16 09:00 87 16 100 12/27/16 08:56 88 16 111/79 100 12/27/16 08:00 96.7 F L 75 17 99 12/27/16 07:57 74 17 108/72 99 Intake and Output (Last 8hrs): Intake & Output 12/26/16 12/27/16 12/27/16 21:59 06:59 14:59 Intake Total 445.0 Output Total 250 Balance 195.0 Weight Intake: Intake, IV Amount 385.0 Left Hand 350 Right Proximal Port 7.4 Internal Jugular Right Medial Port Internal Jugular Right Distal Port 27.6 Internal Jugular Tube Feeding 60 Output: Urine 250 Urethral ([place]) 250 Emesis Other: # Bowel Movements 1 - Physical Exam Head: Positive for: Atraumatic, Normocephalic Pupils: Positive for: PERRL Pharnyx: Positive for: Other (intubated, OG tube) Respiratory/Chest: Positive for: Rales, Rhonchi Cardiovascular: Positive for: Normal S1, S2. Negative for: Murmurs Abdomen: Positive for: Normal Bowel Sounds. Negative for: Tenderness, Distention Upper Extremity: Positive for: Other (scratches to upper extremities noted) Lower Extremity: Positive for: Other (1+ pitting edema to bilateral lower extremities ) Neurological: Positive for: Other (responsive to pain, corneal reflex, gag and cough reflexes intact, pupils reactive to light) Skin: Positive for: Dry - Medications Active Medications: Active Medications Generic Name Dose Route Start Last Admin Trade Name Freq PRN Reason Stop Dose Admin Famotidine 20 mg 12/23/16 10:00 12/27/16 09:36 Pepcid PO 20 mg BID [facility] Administration Hydroxychloroquine Sulfate 200 mg 12/23/16 10:00 12/27/16 09:38 Plaquenil PO 200 mg BID [facility] Administration Azithromycin 500 mg/ Sodium 250 mls @ 250 mls/hr 12/23/16 10:00 12/27/16 09:35 Chloride IVPB 250 mls/hr DAILY [facility] Administration Cefepime HCl 100 mls @ 100 mls/hr 12/24/16 18:00 12/27/16 10:30 Maxipime Iv 2 Gm Premix IVPB 100 mls/hr Q8H [facility] Administration Propofol 100 mls @ 1.71 mls/hr 12/25/16 11:07 12/27/16 09:00 Diprivan IV 6 mcg/kg/min .Q24H PRN Titration TITRATE PER MD ORDER Protocol 5 MCG/KG/MIN Dopamine HCl/Dextrose 250 mls @ 10.606 mls/hr 12/26/16 12:20 12/27/16 10:00 Dopamine 400mg/250ml D5w IV 5 mcg/kg/min .[id number] PRN Titration TITRATE PER MD ORDER Protocol 5 MCG/KG/MIN - Patient Studies Lab Studies: Microbiology Studies 12/22/16 18:10 Blood Culture - Preliminary Blood NO GROWTH AFTER 4 DAYS Lab Studies 12/27/16 12/27/16 12/26/16 Range/Units 06:13 04:30 06:47 WBC 12.4 H D (4.8-10.8) K/uL RBC 3.21 L (3.80-5.20) Mil/uL Hgb 11.0 (11.0-16.0) g/dL Hct 33.1 L (34.0-47.0) % MCV 103.1 H (81.0-99.0) fL MCH 34.2 H (27.0-31.0) pg MCHC 33.2 (33.0-37.0) g/dL RDW 23.6 H (11.5-14.5) % Plt Count 62 L D (130-400) K/uL MPV 9.7 (7.2-11.7) fL Neut % (Auto) 88.6 H (50.0-75.0) % Lymph % (Auto) 8.6 L (20.0-40.0) % [place] % (Auto) 2.6 (0.0-10.0) % Eos % (Auto) 0.1 (0.0-4.0) % Baso % (Auto) 0.1 (0.0-2.0) % Neut # 11.0 H (1.8-7.0) K/uL Lymph # 1.1 (1.0-4.3) K/uL [place] # 0.3 (0.0-0.8) K/uL Eos # 0.0 (0.0-0.7) K/uL Baso # 0.0 (0.0-0.2) K/uL Neutrophils % (Manual) 87 H (50-75) % Band Neutrophils % 1 (0-2) % Lymphocytes % (Manual) 9 L (20-40) % Monocytes % (Manual) 2 (0-10) % Eosinophils % (Manual) 1 (0-4) % Differential Comment Toxic Granulation Present Platelet Estimate Decreased L (NORMAL) Large Platelets Present Polychromasia Slight Hypochromasia (manual) Slight Poikilocytosis (manual Slight Anisocytosis (manual) Moderate Macrocytosis (manual) Moderate Target Cells Slight Puncture Site Rb pCO2 26 L (35-45) mm/Hg pO2 180 H (80-100) mm/Hg HCO3 17.4 L (21-28) mmol/L ABG pH 7.35 (7.35-7.45) ABG Total CO2 15.2 L (22-28) mmol/L ABG O2 Saturation 100.2 H (95-98) % ABG Base Excess -9.6 L (-2.0-3.0) mmol/L ABG Hemoglobin 12.7 (11.7-17.4) g/dL ABG Carboxyhemoglobin 2.1 H (0.5-1.5) % POC ABG HHb (Measured) -0.2 L (0.0-5.0) % ABG Methemoglobin 1.1 (0.0-3.0) % Billy Test Na A-a O2 Difference 73.0 mm/Hg Respiratory Index 0.4 Hgb O2 Saturation 96.9 (95.0-98.0) % Mechanical Rate 16 FiO2 40.0 % Tidal Volume 500 PEEP 5 Sodium 145 (132-148) mmol/L Potassium 3.7 (3.6-5.2) mmol/L Chloride 111 H (98-107) mmol/L Carbon Dioxide 18 L (22-30) mmol/L Anion Gap 20 (10-20) BUN 36 H (7-17) mg/dL Creatinine 1.5 H (0.7-1.2) MG/DL Est GFR ( Amer) 43 Est GFR (Non-Af Amer) 36 Random Glucose 92 (65-105) mg/dL Calcium 8.0 L (8.6-10.4) mg/dl Phosphorus 2.4 L (2.5-4.5) mg/dL Magnesium 2.0 (1.6-2.3) mg/dL Total Bilirubin 8.4 H (0.2-1.3) mg/dL AST 445 H D (14-36) U/L ALT 180 H D (9-52) U/L Alkaline Phosphatase 142 H (38-126) U/L Total Protein 6.4 (6.3-8.3) g/dL Albumin 2.2 L (3.5-5.0) g/dL Globulin 4.1 H (2.2-3.9) gm/dL Albumin/Globulin Ratio 0.5 L (1.0-2.1) Laboratory Results - last 24 hr 12/26/16 12/27/16 12/27/16 06:47 04:30 06:13 WBC 12.4 H D RBC 3.21 L Hgb 11.0 Hct 33.1 L MCV 103.1 H MCH 34.2 H MCHC 33.2 RDW 23.6 H Plt Count 62 L D MPV 9.7 Neut % (Auto) 88.6 H Lymph % (Auto) 8.6 L [place] % (Auto) 2.6 Eos % (Auto) 0.1 Baso % (Auto) 0.1 Neut # 11.0 H Lymph # 1.1 [place] # 0.3 Eos # 0.0 Baso # 0.0 Neutrophils % (Manual) 87 H Band Neutrophils % 1 Lymphocytes % (Manual) 9 L Monocytes % (Manual) 2 Eosinophils % (Manual) 1 Differential Comment Toxic Granulation Present Platelet Estimate Decreased L Large Platelets Present Polychromasia Slight Hypochromasia (manual) Slight Poikilocytosis (manual Slight Anisocytosis (manual) Moderate Macrocytosis (manual) Moderate Target Cells Slight Puncture Site Rb pCO2 26 L pO2 180 H HCO3 17.4 L ABG pH 7.35 ABG Total CO2 15.2 L ABG O2 Saturation 100.2 H ABG Base Excess -9.6 L ABG Hemoglobin 12.7 ABG Carboxyhemoglobin 2.1 H POC ABG HHb (Measured) -0.2 L ABG Methemoglobin 1.1 Billy Test Na A-a O2 Difference 73.0 Respiratory Index 0.4 Hgb O2 Saturation 96.9 Mechanical Rate 16 FiO2 40.0 Tidal Volume 500 PEEP 5 Sodium 145 Potassium 3.7 Chloride 111 H Carbon Dioxide 18 L Anion Gap 20 BUN 36 H Creatinine 1.5 H Est GFR ( Amer) 43 Est GFR (Non-Af Amer) 36 Random Glucose 92 Calcium 8.0 L Phosphorus 2.4 L Magnesium 2.0 Total Bilirubin 8.4 H AST 445 H D ALT 180 H D Alkaline Phosphatase 142 H Total Protein 6.4 Albumin 2.2 L Globulin 4.1 H Albumin/Globulin Ratio 0.5 L Fingerstick Blood Sugar Results: 105
[2016-12-27 12:14] LABS: CREATININE, RANDOM URINE 13.8 mg/dL
--- NOTE | 2016-12-27 19:42 | CP.PCM.PN ---
Subjective - Date & Time of Evaluation Date of Evaluation: 12/27/16 Time of Evaluation: 12:40 - Subjective Subjective: Patient alert, following commands; dopamine restarted last night due to hypotension; Objective - Vital Signs/Intake and Output Vital Signs (last 24 hours): Temp Pulse Resp BP Pulse Ox 97.4 F L 86 21 112/77 99 12/27/16 16:00 12/27/16 19:00 12/27/16 19:00 12/27/16 18:56 12/27/16 19:00 Intake and Output: 12/27/16 12/28/16 18:59 06:59 Intake Total 785.8 80.2 Output Total 735 50 Balance 50.8 30.2 - Medications Medications: Current Medications Famotidine (Pepcid) 20 mg PO BID [facility] Last Admin: 12/27/16 17:44 Dose: 20 mg Hydroxychloroquine Sulfate (Plaquenil) 200 mg PO BID [facility] Last Admin: 12/27/16 17:45 Dose: 200 mg Azithromycin 500 mg/ Sodium (Chloride) 250 mls @ 250 mls/hr IVPB DAILY [facility] Last Admin: 12/27/16 09:35 Dose: 250 mls/hr Cefepime HCl (Maxipime Iv 2 Gm Premix) 100 mls @ 100 mls/hr IVPB Q8H [facility] Last Admin: 12/27/16 17:44 Dose: 100 mls/hr Propofol (Diprivan) 100 mls @ 1.71 mls/hr IV .Q24H PRN; Protocol; 5 MCG/KG/MIN PRN Reason: TITRATE PER MD ORDER Last Admin: 12/27/16 13:00 Dose: 2.052 mls/hr Dopamine HCl/Dextrose (Dopamine 400mg/250ml D5w) 250 mls @ 10.606 mls/hr IV .[id number] PRN; Protocol; 5 MCG/KG/MIN PRN Reason: TITRATE PER MD ORDER Last Titration: 12/27/16 10:00 Dose: 5 mcg/kg/min - Labs Labs: 12/27/16 06:13 12/27/16 06:13 PT 19.4 SECONDS (9.7-12.2) H 12/25/16 06:11 INR 1.7 12/25/16 06:11 APTT 34 SECONDS (21-34) D 12/25/16 06:11 - Constitutional Appears: Non-toxic, No Acute Distress - Head Exam Head Exam: NORMAL INSPECTION - Eye Exam Eye Exam: Scleral icterus Pupil Exam: absent: Unequal - ENT Exam ENT Exam: Mucous Membranes Moist - Neck Exam Neck Exam: Normal Inspection Additional comments: intubated - Respiratory Exam Respiratory Exam: Clear to Ausculation Bilateral, NORMAL BREATHING PATTERN - Cardiovascular Exam Cardiovascular Exam: REGULAR RHYTHM, +S1, +S2 Additional comments: S3+ - GI/Abdominal Exam GI & Abdominal Exam: Soft. absent: Distended - Extremities Exam Additional comments: marked pitting edema of bilateral proximal legs - Neurological Exam Neurological Exam: Alert, Awake - Skin Skin Exam: absent: Cyanosis Additional comments: ext cool to touch Assessment and Plan (1) CHF (congestive heart failure) Assessment & Plan: LV systolic failure per consulting [employer] manager who recommends inotropic agent; worsening renal function likely cardiorenal as well; however, risk of further hypotension with inotrope; Status: Acute (2) Hyperbilirubinemia Assessment & Plan: Likely congestive hepatopathy; needs diuresis when more stable; Status: Acute (3) Pneumonia Assessment & Plan: RUL infiltrate, on cefepime and zithromax, continue; Status: Acute (4) Pulmonary hypertension Assessment & Plan: Markedly elevated R sided pressures on echo measurements (awaiting official read ); likely secondary to L heart failure; may benefit from inotrope and diuresis; Status: Acute
[2016-12-27] MEDS ORDERED: Petrolatum Oint Foilpak (5 gm) TOP SCH (20:28)
--- NOTE | 2016-12-27 21:31 | CARD ---
APPROVED REPORT EXAM: Two-dimensional and M-mode echocardiogram with Doppler and color Doppler. Other Information Quality : GoodRhythm : NSR INDICATION Dyspnea Surgery/Intervention Pacemaker: RISK FACTORS Hypertension M-Mode DIMENSIONS RVDd2.19 (2.1-3.2cm)Left Atrium (MM)3.46 (2.5-4.0cm) IVSd0.91 (0.7-1.1cm)Aortic Root3.01 (2.2-3.7cm) LVDd5.77 (4.0-5.6cm)Aortic Cusp Exc.1.82 (1.5-2.0cm) PWd0.79 (0.7-1.1cm)FS (%) 12 % LVDs5.06 (2.0-3.8cm)LVEF (%)26 (>50%) Mitral Valve MV E Bxzynyzd362.5cm/sE/A ratio0.0 TDI E/Lateral E'0.0E/Medial E'0.0 Tricuspid Valve TR Peak [id number]/sTR Peak [id number] LEFT VENTRICLE The Left Ventricle is mildly dilated. There is normal left ventricular wall thickness. Left ventricle systolic function is severely impaired. The Ejection Fraction is <20%. No regional wall motion abnormalities noted. The left ventricular diastolic function is normal. No left ventricle thrombus noted on this study. There is no ventricular septal defect visualized. There is no left ventricular aneurysm. There is no mass noted in the left ventricle. RIGHT VENTRICLE The right ventricle is normal size. There is normal right ventricular wall thickness. The right ventricular systolic function is normal. There is a pacemaker lead in the right ventricle. ATRIA The left atrium is mildly dilated. The right atrium size is normal. The interatrial septum is intact with no evidence for an atrial septal defect. AORTIC VALVE The aortic valve is normal in structure and function. There is mild aortic regurgitation. There is no aortic valvular stenosis. There is no aortic valvular vegetation. MITRAL VALVE The mitral valve is normal in structure and function. There is no evidence of mitral valve prolapse. There is no mitral valve stenosis. Mitral regurgitation is moderate to severe. TRICUSPID VALVE The tricuspid valve is normal in structure and function. There is moderate tricuspid regurgitation. Right ventricular systolic pressure is estimated at 50-60 mmHg. There is moderate-severe pulmonary hypertension. There is no tricuspid valve prolapse or vegetation. There is no tricuspid valve stenosis. PULMONIC VALVE The pulmonary valve is normal in structure and function. There is no pulmonic valvular regurgitation. There is no pulmonic valvular stenosis. GREAT VESSELS The aortic root is normal in size. The ascending aorta is normal in size. The pulmonary artery is normal. The IVC is normal in size and collapses >50% with inspiration. PERICARDIAL EFFUSION The pericardium appears normal. There is no pleural effusion. <Conclusion> The Left Ventricle is mildly dilated. Left ventricle systolic function is severely impaired. The Ejection Fraction is <20%. There is a pacemaker lead in the right ventricle. The left atrium is mildly dilated. There is mild aortic regurgitation. Mitral regurgitation is moderate to severe. Right ventricular systolic pressure is estimated at 50-60 mmHg. There is moderate-severe pulmonary hypertension.
[2016-12-28] MEDS: Cefepime IV 2 gm in Dextrose 100 ML IVPB SCH ×3 (02:50→17:14)
[2016-12-28 04:37] LABS: ABG MECHANICAL RATE 16; ARTERIAL BLOOD HGB O2 SAT 96.2 % (95.0-98.0); ATERIAL BLOOD GAS PEEP 5; DRAW SITE RB; HHB 0.6 % (0.0-5.0); METHEMOGLOBIN 1.2 % (0.0-3.0)
[2016-12-28 06:36] LABS: BASO % 0.2 % (0.0-2.0); EOS # 0.1 K/uL (0.0-0.7); EOS % 1.2 % (0.0-4.0); HEMATOCRIT 30.6 % (34.0-47.0); LYMPH # 0.6 K/uL (1.0-4.3); LYMPH % 5.5 % (20.0-40.0); MEAN CELL VOLUME 104.3 fL (81.0-99.0); MEAN CORPUSCULAR HEMOGLOBIN 34.6 pg (27.0-31.0); MEAN CORPUSCULAR HGB CONC 33.2 g/dL (33.0-37.0); MEAN PLATELET VOLUME 10.7 fL (7.2-11.7); MONO # 0.3 K/uL (0.0-0.8); MONO % 3.1 % (0.0-10.0); NRBC % 1.1 % (0.0-2.0); PLATELET COUNT 65 K/uL (130-400); RED CELL DISTRIBUTION WIDTH 23.3 % (11.5-14.5); WHITE BLOOD COUNT 10.1 K/uL (4.8-10.8)
[2016-12-28 06:44] LABS: POTASSIUM 3.2 mmol/L (3.6-5.2)
[2016-12-28 06:46] LABS: ALB/GLOB RATIO 0.5 (1.0-2.1); BILIRUBIN,TOTAL 5.3 mg/dL (0.2-1.3); PHOSPHOROUS 1.8 mg/dL (2.5-4.5); TOTAL PROTEIN 5.9 g/dL (6.3-8.3)
[2016-12-28 06:47] LABS: CALCIUM 7.6 mg/dl (8.6-10.4); MAGNESIUM 2.1 mg/dL (1.6-2.3)
--- NOTE | 2016-12-28 07:10 | CP.PCM.PN ---
<Ellen Iqbal - Last Filed: 12/28/16 07:07> Subjective - Date & Time of Evaluation Date of Evaluation: 12/28/16 Time of Evaluation: 07:08 - Subjective Subjective: Gastroenterology Fellow/PGY4 Progress Note Patient remains intubated on sedation with opening of eyes and head nods to verbal stimuli. Nursing notes tolerating tube feeds at 30cc/hr and no bowel movement overnight. Vasopressor support titrated off this morning. Unable to complete a 12-point review of systems on ventilator support. Objective - Vital Signs/Intake and Output Vital Signs (last 24 hours): Temp Pulse Resp BP Pulse Ox 98.2 F 76 19 102/68 98 12/28/16 04:00 12/28/16 04:00 12/28/16 04:00 12/28/16 03:57 12/28/16 04:00 Intake and Output: 12/28/16 12/28/16 06:59 18:59 Intake Total 380.7 Output Total 680 Balance -299.3 - Medications Medications: Current Medications Emollient Ointment (Vaseline Oint) 5 gm TOP QID PRN Famotidine (Pepcid) 20 mg PO BID [facility] Last Admin: 12/27/16 17:44 Dose: 20 mg Hydroxychloroquine Sulfate (Plaquenil) 200 mg PO BID [facility] Last Admin: 12/27/16 17:45 Dose: 200 mg Azithromycin 500 mg/ Sodium (Chloride) 250 mls @ 250 mls/hr IVPB DAILY [facility] Last Admin: 12/27/16 09:35 Dose: 250 mls/hr Cefepime HCl (Maxipime Iv 2 Gm Premix) 100 mls @ 100 mls/hr IVPB Q8H [facility] Last Admin: 12/28/16 02:50 Dose: 100 mls/hr Propofol (Diprivan) 100 mls @ 1.71 mls/hr IV .Q24H PRN; Protocol; 5 MCG/KG/MIN PRN Reason: TITRATE PER MD ORDER Last Admin: 12/27/16 13:00 Dose: 2.052 mls/hr Dopamine HCl/Dextrose (Dopamine 400mg/250ml D5w) 250 mls @ 10.606 mls/hr IV .[id number] PRN; Protocol; 5 MCG/KG/MIN PRN Reason: TITRATE PER MD ORDER Last Titration: 12/27/16 10:00 Dose: 5 mcg/kg/min - Labs Labs: 12/28/16 06:20 12/28/16 06:20 PT 19.4 SECONDS (9.7-12.2) H 12/25/16 06:11 INR 1.7 12/25/16 06:11 APTT 34 SECONDS (21-34) D 12/25/16 06:11 - Constitutional Appears: Non-toxic, No Acute Distress, Chronically Ill - Head Exam Head Exam: ATRAUMATIC, NORMOCEPHALIC - Eye Exam Eye Exam: EOMI, PERRL Pupil Exam: PERRL. absent: Miosis, Mydriatic - ENT Exam ENT Exam: Mucous Membranes Dry, Normal Oropharynx Additional comments: ETT and OGT in place - Neck Exam Neck Exam: Normal Inspection - Respiratory Exam Respiratory Exam: Rhonchi. absent: Rales, Wheezes Additional comments: diffuse scattered rhonchi - Cardiovascular Exam Cardiovascular Exam: RRR, +S1, +S2. absent: Gallop, Rubs - GI/Abdominal Exam GI & Abdominal Exam: Soft, Normal Bowel Sounds. absent: Guarding, Rigid, Tenderness - Extremities Exam Extremities Exam: Normal Inspection. absent: Pedal Edema - Neurological Exam Additional comments: opens eyes to verbal stimuli, PERRL - Skin Skin Exam: Dry, Intact, Normal Color, Warm Assessment and Plan - Assessment and Plan (Free Text) Assessment: 61 year old male with history of CVA, SLE, Hypertension, and CHF with AICD placement presenting with shortness of breath. Active treatment of ventilator dependent hypoxic respiratory failure on 12/24 secondary to community acquired pneumonia and volume overload secondary to CHF decompensation, EF 26% with severe pulmonary hypertension, and Ecoli UTI. Laboratory findings with hyperbilirubinemia, transaminitis, and new thrombocytopenia. No prior EGD or colonoscopy. Hypoxic respiratory failure 2/2 CAP/ CHF decompensation/severe pulmonary hypertension Jaundice 2/2 conjugated hyperbilirubinemia Innumerable small liver nodules Transaminitis Ecoli UTI Thrombocytopenia Unintentional weight loss Plan: >DDx: congestive hepatopathy, neoplasm, cardiac cirrhosis >LFTs multifactorial- hypotension, congestive hepatopathy, antibiotics >CT Pancreas without mass or biliary obstruction >Hepatitis panel, AMA, LKM antibody negative >ordered smooth muscle antibody >on Cefepime and Azithromycin >recommend Hematology consult >will benefit from liver biopsy of parenchyma and nodules once medically stable >tolerating tube feeds >daily LFTs >strict I&Os >cardiology managing-ICD interrogation >ICU managing >will make further recommendations based on clinical course <Kirill Garcia MD - Last Filed: 12/28/16 11:09> Objective - Vital Signs/Intake and Output Vital Signs (last 24 hours): Temp Pulse Resp BP Pulse Ox 97.6 F 72 21 94/68 L 100 12/28/16 08:00 12/28/16 10:00 12/28/16 10:00 12/28/16 09:57 12/28/16 10:00 Intake and Output: 12/28/16 12/28/16 06:59 18:59 Intake Total 550.9 598.2 Output Total 860 195 Balance -309.1 403.2 - Medications Medications: Current Medications Emollient Ointment (Vaseline Oint) 5 gm TOP QID PRN Famotidine (Pepcid) 20 mg PO BID [facility] Last Admin: 12/28/16 09:04 Dose: 20 mg Hydroxychloroquine Sulfate (Plaquenil) 200 mg PO BID [facility] Last Admin: 12/28/16 09:04 Dose: 200 mg Azithromycin 500 mg/ Sodium (Chloride) 250 mls @ 250 mls/hr IVPB DAILY [facility] Last Admin: 12/28/16 09:45 Dose: 250 mls/hr Cefepime HCl (Maxipime Iv 2 Gm Premix) 100 mls @ 100 mls/hr IVPB Q8H [facility] Last Admin: 12/28/16 09:04 Dose: 100 mls/hr Propofol (Diprivan) 100 mls @ 1.71 mls/hr IV .Q24H PRN; Protocol; 5 MCG/KG/MIN PRN Reason: TITRATE PER MD ORDER Last Titration: 12/28/16 08:00 Dose: 10 mcg/kg/min Dopamine HCl/Dextrose (Dopamine 400mg/250ml D5w) 250 mls @ 10.606 mls/hr IV .[id number] PRN; Protocol; 5 MCG/KG/MIN PRN Reason: TITRATE PER MD ORDER Last Titration: 12/27/16 10:00 Dose: 5 mcg/kg/min Potassium Phosphate 15 mmole/ (Dextrose) 255 mls @ 42.5 mls/hr IVPB ONCE ONE Stop: 12/28/16 15:39 Last Admin: 12/28/16 10:13 Dose: 42.5 mls/hr - Labs Labs: 12/28/16 06:20 12/28/16 06:20 PT 19.4 SECONDS (9.7-12.2) H 12/25/16 06:11 INR 1.7 12/25/16 06:11 APTT 34 SECONDS (21-34) D 12/25/16 06:11 Attending/Attestation - Attestation I have personally seen and examined this patient.: Yes I have fully participated in the care of the patient.: Yes I have reviewed all pertinent clinical information, including history, physical exam and plan: Yes Notes (Text): 12/28/16 11:07 Patient seen with GI fellow in MICU- In a nutshell this is a 61 year old male with history of CVA, SLE, Hypertension, and CHF with AICD placement presenting hypoxic respiratory failure secondary to community acquired pneumonia and volume overload secondary to CHF decompensation, EF 26% with severe pulmonary hypertension, and Ecoli UTI. Laboratory findings with hyperbilirubinemia, transaminemia, and new thrombocytopenia. No prior EGD or colonoscopy. Above biochemical derangement likely due to congestive hepatopathy. No s/s of biliary obstruction. Follow autoimmune serologies- GRAHAM will likely be positive due to lupus. Will send anti smooth muscle ab. Continue tube feeds and antibiotics. Rest of management as per MICU.
--- NOTE | 2016-12-28 08:05 | CP.CCUPN ---
CCU Subjective - Physician Review Subjective (Free Text): 12/28/16 20:48 Patient seen and examined at bedside. No acute distress. No acute events overnight per nursing. Patient back on AC/PRVC. Patient's persistent low BP halted attempts at a weaning trial. Patient able to follow commands. Critical Care Time Spent (in minutes): 37 CCU Objective - Vital Signs / Intake & Output Vital Signs (Last 4 hours): Vital Signs Pulse Resp BP Pulse Ox 12/28/16 07:00 78 19 100 12/28/16 06:57 98/71 L 12/28/16 06:00 76 18 95 12/28/16 05:57 95/67 L 12/28/16 05:00 73 15 100 12/28/16 04:59 73 16 92/61 L 98 12/28/16 04:57 72 16 89/60 L 99 12/28/16 04:13 74 19 98 Intake and Output (Last 8hrs): Intake & Output 12/27/16 12/28/16 12/28/16 22:59 06:59 14:59 Intake Total 380.8 400.5 33 Output Total 500 590 100 Balance -119.2 -189.5 -67 Weight 123 lb 7.342 oz Intake: Intake, IV Amount 200.8 160.5 3 Right Proximal Port 16 18 3 Internal Jugular Right Distal Port 84.8 42.5 0 Internal Jugular Right Distal Port 100 100 Tube Feeding 180 240 30 Output: Urine 500 590 100 Urethral (Brunner) 500 590 100 - Physical Exam Head: Positive for: Atraumatic, Normocephalic Pupils: Positive for: PERRL Extroacular Muscles: Positive for: EOMI Conjunctiva: Positive for: Normal Mouth: Positive for: Moist Mucous Membranes Pharnyx: Positive for: Other (intubated, OG tube) Respiratory/Chest: Positive for: Rales, Rhonchi Cardiovascular: Positive for: Normal S1, S2. Negative for: Murmurs Abdomen: Positive for: Normal Bowel Sounds. Negative for: Tenderness, Distention Upper Extremity: Positive for: Other (scratches to upper extremities noted) Lower Extremity: Positive for: Other (1+ pitting edema to bilateral lower extremities ) Neurological: Positive for: Other (responsive to pain, corneal reflex, gag and cough reflexes intact, pupils reactive to light) Skin: Positive for: Warm, Dry Psychiatric: Positive for: Alert - Medications Active Medications: Active Medications Generic Name Dose Route Start Last Admin Trade Name Freq PRN Reason Stop Dose Admin Emollient Ointment 5 gm 12/27/16 21:16 Vaseline Oint TOP QID PRN Famotidine 20 mg 12/23/16 10:00 12/27/16 17:44 Pepcid PO 20 mg BID LINN Administration Hydroxychloroquine Sulfate 200 mg 12/23/16 10:00 12/27/16 17:45 Plaquenil PO 200 mg BID LINN Administration Azithromycin 500 mg/ Sodium 250 mls @ 250 mls/hr 12/23/16 10:00 12/27/16 09:35 Chloride IVPB 250 mls/hr DAILY LINN Administration Cefepime HCl 100 mls @ 100 mls/hr 12/24/16 18:00 12/28/16 02:50 Maxipime Iv 2 Gm Premix IVPB 100 mls/hr Q8H LINN Administration Propofol 100 mls @ 1.71 mls/hr 12/25/16 11:07 12/27/16 13:00 Diprivan IV 2.052 mls/hr .Q24H PRN Administration TITRATE PER MD ORDER Protocol 5 MCG/KG/MIN Dopamine HCl/Dextrose 250 mls @ 10.606 mls/hr 12/26/16 12:20 12/27/16 10:00 Dopamine 400mg/250ml D5w IV 5 mcg/kg/min .[id number] PRN Titration TITRATE PER MD ORDER Protocol 5 MCG/KG/MIN - Patient Studies Lab Studies: Microbiology Studies 12/22/16 18:10 Blood Culture - Final Blood NO GROWTH AFTER 5 DAYS Gram Stain - Final TEST NOT PERFORMED Lab Studies 12/28/16 12/28/16 12/27/16 Range/Units 06:20 04:25 11:47 WBC 10.1 (4.8-10.8) K/uL RBC 2.93 L (3.80-5.20) Mil/uL Hgb 10.1 L (11.0-16.0) g/dL Hct 30.6 L (34.0-47.0) % MCV 104.3 H (81.0-99.0) fL MCH 34.6 H (27.0-31.0) pg MCHC 33.2 (33.0-37.0) g/dL RDW 23.3 H (11.5-14.5) % Plt Count 65 L (130-400) K/uL MPV 10.7 (7.2-11.7) fL Neut % (Auto) 90.0 H (50.0-75.0) % Lymph % (Auto) 5.5 L (20.0-40.0) % Bibb % (Auto) 3.1 (0.0-10.0) % Eos % (Auto) 1.2 (0.0-4.0) % Baso % (Auto) 0.2 (0.0-2.0) % Neut # 9.1 H (1.8-7.0) K/uL Lymph # 0.6 L (1.0-4.3) K/uL Bibb # 0.3 (0.0-0.8) K/uL Eos # 0.1 (0.0-0.7) K/uL Baso # 0.0 (0.0-0.2) K/uL Neutrophils % (Manual) (50-75) % Band Neutrophils % (0-2) % Lymphocytes % (Manual) (20-40) % Monocytes % (Manual) (0-10) % Eosinophils % (Manual) (0-4) % Toxic Granulation Platelet Estimate (NORMAL) Large Platelets Polychromasia Hypochromasia (manual) Poikilocytosis (manual Anisocytosis (manual) Macrocytosis (manual) Target Cells Puncture Site Rb pCO2 25 L (35-45) mm/Hg pO2 115 H (80-100) mm/Hg HCO3 17.3 L (21-28) mmol/L ABG pH 7.36 (7.35-7.45) ABG Total CO2 14.9 L (22-28) mmol/L ABG O2 Saturation 99.4 H (95-98) % ABG Base Excess -9.8 L (-2.0-3.0) mmol/L ABG Hemoglobin 11.3 L (11.7-17.4) g/dL ABG Carboxyhemoglobin 2.0 H (0.5-1.5) % POC ABG HHb (Measured) 0.6 (0.0-5.0) % ABG Methemoglobin 1.2 (0.0-3.0) % Billy Test Na A-a O2 Difference 139.0 mm/Hg Respiratory Index 1.2 Hgb O2 Saturation 96.2 (95.0-98.0) % Mechanical Rate 16 FiO2 40.0 % Tidal Volume 500 PEEP 5 Sodium 145 (132-148) mmol/L Potassium 3.2 L (3.6-5.2) mmol/L Chloride 112 H (98-107) mmol/L Carbon Dioxide 19 L (22-30) mmol/L Anion Gap 17 (10-20) BUN 41 H (7-17) mg/dL Creatinine 1.8 H (0.7-1.2) MG/DL Est GFR ( Amer) 35 Est GFR (Non-Af Amer) 29 Random Glucose 93 (65-105) mg/dL Calcium 7.6 L (8.6-10.4) mg/dl Phosphorus 1.8 L (2.5-4.5) mg/dL Magnesium 2.1 (1.6-2.3) mg/dL Total Bilirubin 5.3 H (0.2-1.3) mg/dL AST 507 H (14-36) U/L ALT 221 H D (9-52) U/L Alkaline Phosphatase 132 H (38-126) U/L Total Protein 5.9 L (6.3-8.3) g/dL Albumin 1.9 L (3.5-5.0) g/dL Globulin 3.9 (2.2-3.9) gm/dL Albumin/Globulin Ratio 0.5 L (1.0-2.1) Ur Random Creatinine 13.8 mg/dL Ur Random Sodium 96 mmol/L Ur Random Urea Nitrogn 189 mg/dL 12/27/16 Range/Units 06:13 WBC (4.8-10.8) K/uL RBC (3.80-5.20) Mil/uL Hgb (11.0-16.0) g/dL Hct (34.0-47.0) % MCV (81.0-99.0) fL MCH (27.0-31.0) pg MCHC (33.0-37.0) g/dL RDW (11.5-14.5) % Plt Count (130-400) K/uL MPV (7.2-11.7) fL Neut % (Auto) (50.0-75.0) % Lymph % (Auto) (20.0-40.0) % Bibb % (Auto) (0.0-10.0) % Eos % (Auto) (0.0-4.0) % Baso % (Auto) (0.0-2.0) % Neut # (1.8-7.0) K/uL Lymph # (1.0-4.3) K/uL Bibb # (0.0-0.8) K/uL Eos # (0.0-0.7) K/uL Baso # (0.0-0.2) K/uL Neutrophils % (Manual) 87 H (50-75) % Band Neutrophils % 1 (0-2) % Lymphocytes % (Manual) 9 L (20-40) % Monocytes % (Manual) 2 (0-10) % Eosinophils % (Manual) 1 (0-4) % Toxic Granulation Present Platelet Estimate Decreased L (NORMAL) Large Platelets Present Polychromasia Slight Hypochromasia (manual) Slight Poikilocytosis (manual Slight Anisocytosis (manual) Moderate Macrocytosis (manual) Moderate Target Cells Slight Puncture Site pCO2 (35-45) mm/Hg pO2 (80-100) mm/Hg HCO3 (21-28) mmol/L ABG pH (7.35-7.45) ABG Total CO2 (22-28) mmol/L ABG O2 Saturation (95-98) % ABG Base Excess (-2.0-3.0) mmol/L ABG Hemoglobin (11.7-17.4) g/dL ABG Carboxyhemoglobin (0.5-1.5) % POC ABG HHb (Measured) (0.0-5.0) % ABG Methemoglobin (0.0-3.0) % Billy Test A-a O2 Difference mm/Hg Respiratory Index Hgb O2 Saturation (95.0-98.0) % Mechanical Rate FiO2 % Tidal Volume PEEP Sodium (132-148) mmol/L Potassium (3.6-5.2) mmol/L Chloride (98-107) mmol/L Carbon Dioxide (22-30) mmol/L Anion Gap (10-20) BUN (7-17) mg/dL Creatinine (0.7-1.2) MG/DL Est GFR ( Amer) Est GFR (Non-Af Amer) Random Glucose (65-105) mg/dL Calcium (8.6-10.4) mg/dl Phosphorus (2.5-4.5) mg/dL Magnesium (1.6-2.3) mg/dL Total Bilirubin (0.2-1.3) mg/dL AST (14-36) U/L ALT (9-52) U/L Alkaline Phosphatase (38-126) U/L Total Protein (6.3-8.3) g/dL Albumin (3.5-5.0) g/dL Globulin (2.2-3.9) gm/dL Albumin/Globulin Ratio (1.0-2.1) Ur Random Creatinine mg/dL Ur Random Sodium mmol/L Ur Random Urea Nitrogn mg/dL Laboratory Results - last 24 hr 12/27/16 12/27/16 12/28/16 06:13 11:47 04:25 WBC RBC Hgb Hct MCV MCH MCHC RDW Plt Count MPV Neut % (Auto) Lymph % (Auto) Bibb % (Auto) Eos % (Auto) Baso % (Auto) Neut # Lymph # Bibb # Eos # Baso # Neutrophils % (Manual) 87 H Band Neutrophils % 1 Lymphocytes % (Manual) 9 L Monocytes % (Manual) 2 Eosinophils % (Manual) 1 Toxic Granulation Present Platelet Estimate Decreased L Large Platelets Present Polychromasia Slight Hypochromasia (manual) Slight Poikilocytosis (manual Slight Anisocytosis (manual) Moderate Macrocytosis (manual) Moderate Target Cells Slight Puncture Site Rb pCO2 25 L pO2 115 H HCO3 17.3 L ABG pH 7.36 ABG Total CO2 14.9 L ABG O2 Saturation 99.4 H ABG Base Excess -9.8 L ABG Hemoglobin 11.3 L ABG Carboxyhemoglobin 2.0 H POC ABG HHb (Measured) 0.6 ABG Methemoglobin 1.2 Billy Test Na A-a O2 Difference 139.0 Respiratory Index 1.2 Hgb O2 Saturation 96.2 Mechanical Rate 16 FiO2 40.0 Tidal Volume 500 PEEP 5 Sodium Potassium Chloride Carbon Dioxide Anion Gap BUN Creatinine Est GFR ( Amer) Est GFR (Non-Af Amer) Random Glucose Calcium Phosphorus Magnesium Total Bilirubin AST ALT Alkaline Phosphatase Total Protein Albumin Globulin Albumin/Globulin Ratio Ur Random Creatinine 13.8 Ur Random Sodium 96 Ur Random Urea Nitrogn 189 12/28/16 06:20 WBC 10.1 RBC 2.93 L Hgb 10.1 L Hct 30.6 L MCV 104.3 H MCH 34.6 H MCHC 33.2 RDW 23.3 H Plt Count 65 L MPV 10.7 Neut % (Auto) 90.0 H Lymph % (Auto) 5.5 L Bibb % (Auto) 3.1 Eos % (Auto) 1.2 Baso % (Auto) 0.2 Neut # 9.1 H Lymph # 0.6 L Bibb # 0.3 Eos # 0.1 Baso # 0.0 Neutrophils % (Manual) Band Neutrophils % Lymphocytes % (Manual) Monocytes % (Manual) Eosinophils % (Manual) Toxic Granulation Platelet Estimate Large Platelets Polychromasia Hypochromasia (manual) Poikilocytosis (manual Anisocytosis (manual) Macrocytosis (manual) Target Cells Puncture Site pCO2 pO2 HCO3 ABG pH ABG Total CO2 ABG O2 Saturation ABG Base Excess ABG Hemoglobin ABG Carboxyhemoglobin POC ABG HHb (Measured) ABG Methemoglobin Billy Test A-a O2 Difference Respiratory Index Hgb O2 Saturation Mechanical Rate FiO2 Tidal Volume PEEP Sodium 145 Potassium 3.2 L Chloride 112 H Carbon Dioxide 19 L Anion Gap 17 BUN 41 H Creatinine 1.8 H Est GFR ( Amer) 35 Est GFR (Non-Af Amer) 29 Random Glucose 93 Calcium 7.6 L Phosphorus 1.8 L Magnesium 2.1 Total Bilirubin 5.3 H AST 507 H ALT 221 H D Alkaline Phosphatase 132 H Total Protein 5.9 L Albumin 1.9 L Globulin 3.9 Albumin/Globulin Ratio 0.5 L Ur Random Creatinine Ur Random Sodium Ur Random Urea Nitrogn Fingerstick Blood Sugar Results: 105 Review of Systems - Review of Systems All systems: reviewed and no additional remarkable complaints except (that which was mentioned in the subjective portion) Critical Care Progress Note - Prophylaxis GI Prophylaxis GI: Pepsid - Prophylaxis DVT Prophylaxis DVT: SCDs Assessment/Plan - Assessment and Plan (Free Text) Assessment: Pt is 61F with extensive medical history pertinent for lupus, heart failure with AICD, stroke with left-sided deficit, and HTN admitted to the ICU s/p agonal breathing requiring intubation on medical floor. Patient being treated for sepsis likely secondary to aspiration pneumonia. Plan: Neuro: Sedated on Propofol (previously Versed) Responsive, opens her eyes to name called. History of CVA with residual weakness Head CT: No evidence of acute intracranial hemorrhage, acute territorial infarct , mass effect or midline shift. Moderate-size encephalomalacia at the left temporal parietal lobe suggestive of chronic left MCA territory infarct. Moderate atrophy and white matter changes. Cardio: Currently normotensive, BP 104/70, SBP in 90s overnight. CHF with EF noted to be 22% on previous echocardiogram; Low dose Milrinone started- 0.5 mcg/kg/min Repeat echo (12/22/16): LVEF <20%, LV is mildly dilated, LA is mildly dilated. Mild AR, moderate-severe MR, Moderate-severe pulmonary HTN. 12/28/[address] - Left-sided AICD. Cardiomegaly. Coronary artery calcifications. 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 Montelongo consulted - help appreciated On Dopamine drip TLC in DCJ YOUSUF panel negative. Troponins 0.0240>0.0670>0.0830 Pulm: Intubated on AC/PRVC, Observed RR 30 Vent settings: 500/16/5 FiO2 40% 12/28/16 ABG: pCO2 25, pO2 115, HCO3 17.3, pH 7.36 12/25/16 ABG: pCO2 24, pO2 191, HCO3 20.3, pH 7.44, Lactate 1.4 12/24/16 ABG: pCO2 26, pO2 221, HCO3 17.9, pH 7.36, lactate 2.3 Saturating 98% 12/28/[address] - Extensive right upper lobe consolidation/pneumonia. Bibasilar atelectasis. Small right pleural effusion. Recommend follow-up to resolution. Suspected cavitary lsions prompt- airborne isolation for Tb precautions- F/U mycobacterium tuberculosis studies 12/28/16 CXR: Lines and tubes in stable position. Left-sided pacemaker. Persistent ill-defined consolidative changes seen within the right upper to mid lung zone. No significant interval change. 12/25/16 CXR: Endotracheal tube extending into the midthoracic trachea. NG tube extending into stomach. Right central venous catheter extending in to the cavoatrial junction. Dense consolidative opacification of the right upper and midlung zones. Milder patchy opacity at the lung base. Diffuse increased interstitial lung markings. 12/24/16 CXR: Worsening RUL consolidation, cardiomegaly, left-sided AICD CT Abdomen and Pelvis w/o contrast (12/22/16): Small to moderate R pleural effusion. Possible aspiration pneumonia Antibiotics as below GI: Still has diarrhea, stool sample for C.diff OG tube, receiving feeds Hepatitis panel negative, AMA negative (r/o PBC), Ceruloplasmin negative, Anti- SM and LKM Ab (r/o autoimmune hepatitis) - pending. GI will consider EUS if workup is negative and direct bili remains elevated. Pancreatic protocol CT (12/25/16) - Fatty infiltration of the liver, heterogeneous. Innumerable small enhancing nodules on portal venous phase images of the liver. Uncertain significance. Consider metastatic disease. Unlikely hepatocellular neoplasm. No evidence of pancreatitis or pancreatic mass. No biliary obstruction. Mild ascites. Small right and trace left pleural effusion with lower lobe compressive atelectasis. Permanent pacemaker. Nasogastric tube. Brunner catheter. T.bili of 9.5, Direct bili of 7.2, GGT 126, AST 126, ALT 79 on admission T. bili 6.6, AST 163, ALT 105 (12/24/16) T. bili 7.6, AST 201, ALT 109 (12/25/16) T. bili 5.3, AST 507, ALT 221, Alk phos 132 (12/28/16) Continue to trend T.bili and LFTs - acutely worsened - likely 2/[address] Abdomen and Pelvis w/o contrast (12/22/16): Small to moderate right pleural effusion. Trace ascites. Nonspecific presacral edema. Mild generalized anasarca. Mild hepatomegaly with fatty infiltration of the liver. No evidence of biliary obstruction. No evidence of cholecystitis. Mild nonspecific presacral edema, possibly related generalized anasarca. RUQ US (12/23/16): Right renal cysts. Incidental note is made of small right pleural effusion. Echogenic liver may be in setting of hepatic parenchymal disease or fatty infiltration. Small perihepatic ascites. Small fluid is noted by the gallbladder fossa. Gallbladder wall thickening/pericholecystic edema without evidence of gallstones. Negative sonographic Hutchinson's sign as assessed by the general service officer. No portal vein thrombosis. Heme: Hgb 10.1 Hct 30.6 Plt 65 Thrombocytopenia Monitor Endo: T3 and T4 are low on admission with normal TSH TSH 1.34, T3 uptake >65.o, Free T4 0.87 Maintain euglycemia Rheumatology: History of lupus On plaquenil 200mg BID Folic acid 1mg PO daily IgG 1775.0 IgA 510.1 IgM 66.[address] Reyanga as outpatient Nephro: BUN/Cr 19/1.1 Electrolytes within normal limits UTI: 12/26 culture positive for E.Coli, Abx as below 12/28/[address] - Limited visualization of the upper abdomen demonstrates numerous bilateral renal lesions, possibly cysts. Hyperdense 11 mm left upper pole exophytic lesion, indeterminate. Monitor : monitor urine output Brunner in ID: WBC: 10.1 Possible aspiration pneumonia Hepatitis panel negative UTI, urine cx positive for E.coli Started Cefepime 2gm IVPB Q8H (12/24/16) On Azithromycin 500 mg IVPB daily, Cefepime IV 2GM daily Stool for C.diff - pending collection Mycobaceterial culture - pending Pt transferred to negative pressure room Prophylaxis: SCDs Pepcid 20mg PO BID
[2016-12-28 08:47] LABS: EOSINOPHIL 1 % (0-4); NEUTROPHIL 88 % (50-75); NUCLEATED RED BLOOD CELL 1 % (0-0); TOTAL CELLS COUNTED 100
[2016-12-28] MEDS ORDERED: Potassium Chloride 20 mEq 100 ML IVPB ONE (09:00)
--- NOTE | 2016-12-28 09:16 | CP.PCM.PN ---
Subjective - Date & Time of Evaluation Date of Evaluation: 12/28/16 Time of Evaluation: 08:45 - Subjective Subjective: Patient now back on AC/PRVC, patient's blood pressure did not allow for further weaning yesterday. Currently on propofol ggt at this time. Earlier in the morning was on dopamine, and that is now off. She was awake, she opened her eyes to her name called. She was able to indicate with face and head gestures that she did not have abdominal or chest pain. As mentioned previously she came on 12/22 with shortness of breath and was intubated on 12/24 and brought to the ICU due to respiratory distress. There is a PMHX signifigant for SLE, Severe Pulmonary HTN, CHF, AICD, CVA with left sided deficit, and also HTN. Objective - Vital Signs/Intake and Output Vital Signs (last 24 hours): Temp Pulse Resp BP Pulse Ox 97.6 F 84 17 106/77 100 12/28/16 08:00 12/28/16 08:17 12/28/16 08:17 12/28/16 08:17 12/28/16 08:17 Intake and Output: 12/28/16 12/28/16 06:59 18:59 Intake Total 550.9 71.4 Output Total 860 180 Balance -309.1 -108.6 - Medications Medications: Current Medications Emollient Ointment (Vaseline Oint) 5 gm TOP QID PRN Famotidine (Pepcid) 20 mg PO BID [facility] Last Admin: 12/28/16 09:04 Dose: 20 mg Hydroxychloroquine Sulfate (Plaquenil) 200 mg PO BID [facility] Last Admin: 12/28/16 09:04 Dose: 200 mg Azithromycin 500 mg/ Sodium (Chloride) 250 mls @ 250 mls/hr IVPB DAILY [facility] Last Admin: 12/27/16 09:35 Dose: 250 mls/hr Cefepime HCl (Maxipime Iv 2 Gm Premix) 100 mls @ 100 mls/hr IVPB Q8H [facility] Last Admin: 12/28/16 09:04 Dose: 100 mls/hr Propofol (Diprivan) 100 mls @ 1.71 mls/hr IV .Q24H PRN; Protocol; 5 MCG/KG/MIN PRN Reason: TITRATE PER MD ORDER Last Admin: 12/27/16 13:00 Dose: 2.052 mls/hr Dopamine HCl/Dextrose (Dopamine 400mg/250ml D5w) 250 mls @ 10.606 mls/hr IV .[id number] PRN; Protocol; 5 MCG/KG/MIN PRN Reason: TITRATE PER MD ORDER Last Titration: 12/27/16 10:00 Dose: 5 mcg/kg/min Potassium Chloride (Potassium Chloride 20 Meq/100 Ml) 100 mls @ 50 mls/hr IVPB ONCE ONE Stop: 12/28/16 10:59 Last Admin: 12/28/16 08:54 Dose: 50 mls/hr - Labs Labs: 12/28/16 06:20 12/28/16 06:20 PT 19.4 SECONDS (9.7-12.2) H 12/25/16 06:11 INR 1.7 12/25/16 06:11 APTT 34 SECONDS (21-34) D 12/25/16 06:11 - Constitutional Appears: Cachectic, Chronically Ill - Head Exam Additional comments: Mecahnical Intubation - ENT Exam ENT Exam: Mucous Membranes Moist - Respiratory Exam Respiratory Exam: Decreased Breath Sounds, Rhonchi Additional comments: Mecahnical intubation - Cardiovascular Exam Cardiovascular Exam: REGULAR RHYTHM - Neurological Exam Neurological Exam: Altered, Awake. absent: CN II-XII Intact, Normal Gait - Psychiatric Exam Psychiatric exam: Depressed, Flat Affect - Skin Additional comments: Jaundice Assessment and Plan - Assessment and Plan (Free Text) Assessment: Respiratory failure 12/28: Remains intubated. Now back on AC/PRVC settings, blood pressure became low yesterday 12/26: Probably multiple etiology including pneumonia, CHF, and severe pulmonary HTN. Remains intubated at this time. Now on PS/CPAP settings. Hopefully can extubate soon. On abx Cefepime, Vancomycin, and Azithromycin IV. Pneumonia 12/26: On abx Cefepime, Vancomycin, and Azithromycin IV. CXR on admission showed extensive RUL infiltrate. - Azithromycin IVPB CHF systolic and severe pulmonary HTN. 12/26: Recent echo with EF of 20%. Per cardiology right and left systolic heart failure and severe mitral regurgitation Patient has AICD, on low dose lopressor BID Abdominal pain 12/28: Possibl the LFTs are multifactorial- hypotension, congestive hepatopathy, and the use of antibiotics 12/26: The Tbillirubin remains elevated. AST and ALT both mildy elevated as well. Per GI there is evidence of parenchymal liver disease and nodules which could represent metastatic lesions, though inconclusive. At some point when stable maybe needs liver biopsy From before: "CT Abdomen and Pelvis w/o Po IV contrast : Small to moderate right pleural effusion. Trace ascites. Nonspecific presacral edema. Mild generalized anasarca. Mild hepatomegaly with fatty infiltration of the liver. No evidence of biliary obstruction. No evidence of cholecystitis. Mild nonspecific presacral edema, possibly related generalized anasarca. Additional minor findings as above. - RUQ US 12/23 - Right renal cysts. Incidental note is made of small right pleural effusion. Echogenic liver may be seen in setting of hepatic parenchymal disease or fatty infiltration. Small perihepatic ascites. Small fluid is noted by the gallbladder fossa. Gallbladder wall thickening/ pericholecystic edema without evidence of gallstones. Negative sonographic Hutchinson's sign as assessed by the test fixture designer. No portal vein thrombosis" UTI 12/26: Culture positive for Ecoli Currently on Cefepime. History of CVA Weakness - Likely debilitated from ongoing infectious process. - Patient also with history of CVA and residual weakness. She cannot ambulate without assistance. - Head CT: No evidence of acute intracranial hemorrhage acute territorial infarct mass effect or midline shift. Moderate-size encephalomalacia at the left temporal parietal lobe suggestive of chronic left MCA territory infarct. Moderate atrophy and white matter changes. Hx of Lupus (systemic lupus erythematosus) Plaquenil 200 mg PO BID MV Folic Acid 1 mg PO daily Abnormal thyroid blood test - T3 and T3 are low on admission with normal TSH. Prophylactic measure - Heparin SC Q8H - Pepcid 20 mg PO daily
--- NOTE | 2016-12-28 09:24 | RAD ---
PROCEDURE: CHEST RADIOGRAPH, 1 VIEW HISTORY: intubated patient COMPARISON: 12/27/2016 FINDINGS: LUNGS: Lines and tubes in stable position. Left-sided pacemaker. Persistent ill-defined consolidative changes seen within the right upper to mid lung zone. PLEURA: As above. CARDIOVASCULAR: Left-sided pacemaker. OSSEOUS STRUCTURES: No significant abnormalities. VISUALIZED UPPER ABDOMEN: Normal. OTHER FINDINGS: None. IMPRESSION: No significant interval change.
--- NOTE | 2016-12-28 09:34 | CP.PCM.PN ---
Subjective - Date & Time of Evaluation Date of Evaluation: 12/28/16 Time of Evaluation: 08:35 - Subjective Subjective: Cardiology progress note for Dr Montelongo: Patient is still intubated, on PRVC with FIO2 of 40%. Patient is awake, and alert, responds to simple commands by nodding her head. Patient is currently off of pressors since ~6am. Normal sinus rate on tele. Objective - Vital Signs/Intake and Output Vital Signs (last 24 hours): Temp Pulse Resp BP Pulse Ox 97.6 F 84 17 106/77 100 12/28/16 08:00 12/28/16 08:17 12/28/16 08:17 12/28/16 08:17 12/28/16 08:17 Intake and Output: 12/28/16 12/28/16 06:59 18:59 Intake Total 550.9 71.4 Output Total 860 180 Balance -309.1 -108.6 - Medications Medications: Current Medications Emollient Ointment (Vaseline Oint) 5 gm TOP QID PRN Famotidine (Pepcid) 20 mg PO BID [facility] Last Admin: 12/28/16 09:04 Dose: 20 mg Hydroxychloroquine Sulfate (Plaquenil) 200 mg PO BID [facility] Last Admin: 12/28/16 09:04 Dose: 200 mg Azithromycin 500 mg/ Sodium (Chloride) 250 mls @ 250 mls/hr IVPB DAILY [facility] Last Admin: 12/27/16 09:35 Dose: 250 mls/hr Cefepime HCl (Maxipime Iv 2 Gm Premix) 100 mls @ 100 mls/hr IVPB Q8H [facility] Last Admin: 12/28/16 09:04 Dose: 100 mls/hr Propofol (Diprivan) 100 mls @ 1.71 mls/hr IV .Q24H PRN; Protocol; 5 MCG/KG/MIN PRN Reason: TITRATE PER MD ORDER Last Admin: 12/27/16 13:00 Dose: 2.052 mls/hr Dopamine HCl/Dextrose (Dopamine 400mg/250ml D5w) 250 mls @ 10.606 mls/hr IV .[id number] PRN; Protocol; 5 MCG/KG/MIN PRN Reason: TITRATE PER MD ORDER Last Titration: 12/27/16 10:00 Dose: 5 mcg/kg/min Potassium Chloride (Potassium Chloride 20 Meq/100 Ml) 100 mls @ 50 mls/hr IVPB ONCE ONE Stop: 12/28/16 10:59 Last Admin: 12/28/16 08:54 Dose: 50 mls/hr - Labs Labs: 12/28/16 06:20 12/28/16 06:20 PT 19.4 SECONDS (9.7-12.2) H 12/25/16 06:11 INR 1.7 12/25/16 06:11 APTT 34 SECONDS (21-34) D 12/25/16 06:11 - Constitutional Appears: No Acute Distress, Older Than Stated Age, Chronically Ill - Head Exam Head Exam: ATRAUMATIC, NORMAL INSPECTION, NORMOCEPHALIC - Eye Exam Eye Exam: Normal appearance, PERRL - ENT Exam ENT Exam: Mucous Membranes Moist (NGT and OGT) - Neck Exam Neck Exam: Normal Inspection - Respiratory Exam Respiratory Exam: Clear to Ausculation Bilateral, NORMAL BREATHING PATTERN. absent: Rales, Rhonchi, Wheezes, Respiratory Distress, Stridor - Cardiovascular Exam Cardiovascular Exam: REGULAR RHYTHM, RRR, +S1, +S2. absent: Murmur - GI/Abdominal Exam GI & Abdominal Exam: Soft, Normal Bowel Sounds. absent: Distended, Firm, Guarding, Rigid, Tenderness - Extremities Exam Extremities Exam: Pedal Edema (trace). absent: Tenderness - Neurological Exam Neurological Exam: Alert, Awake (sill intubated ) - Psychiatric Exam Psychiatric exam: Normal Affect, Normal Mood - Skin Skin Exam: Dry, Normal Color, Warm Assessment and Plan - Assessment and Plan (Free Text) Assessment: 61 y/o with PMH of Lupus, dilated cardiomyopathy s/p ICD, CVA with left sided residue, htn admitted with: 1) Hypoxemic respiratory failure 2nd to HAP/CHF exacerbation LVEF of 20% with mod-severe pulm htn on echo- s/p ICD 2) Septic shock- off of pressors this AM 3) Ecoli UTI 4) Transaminitis 5) VERONICA 6) Hypokalemia/hypophosphatemia 7) Thrombocytopenia- r/o HIT 8) Anemia 9) Cardiology consulted for ICD interrogation Plan: - ICD interrogated, Normal except the ICD has low battery life and will need replacing once patient is medically stable. - Consider ionotropes - Medical management as per primary and ICU. Patient seen, examined, case discussed with Dr. [email or web address].
[2016-12-28] MEDS ORDERED: Potassium Phosphate 15 MMOLE in Dextrose 5% In Water 250 ML IVPB ONE (09:40)
[2016-12-28] MEDS: Azithromycin 500 MG in Sodium Chloride 0.9% 250 ML IVPB SCH (09:45)
--- NOTE | 2016-12-28 11:34 | CP.PCM.PN ---
Subjective - Date & Time of Evaluation Date of Evaluation: 12/27/16 Time of Evaluation: 08:15 Objective - Vital Signs/Intake and Output Vital Signs (last 24 hours): Temp Pulse Resp BP Pulse Ox 97.6 F 72 21 94/68 L 100 12/28/16 08:00 12/28/16 10:00 12/28/16 10:00 12/28/16 09:57 12/28/16 10:00 Intake and Output: 12/28/16 12/28/16 06:59 18:59 Intake Total 550.9 598.2 Output Total 860 195 Balance -309.1 403.2 - Medications Medications: Current Medications Emollient Ointment (Vaseline Oint) 5 gm TOP QID PRN Famotidine (Pepcid) 20 mg PO BID [facility] Last Admin: 12/28/16 09:04 Dose: 20 mg Hydroxychloroquine Sulfate (Plaquenil) 200 mg PO BID [facility] Last Admin: 12/28/16 09:04 Dose: 200 mg Azithromycin 500 mg/ Sodium (Chloride) 250 mls @ 250 mls/hr IVPB DAILY [facility] Last Admin: 12/28/16 09:45 Dose: 250 mls/hr Cefepime HCl (Maxipime Iv 2 Gm Premix) 100 mls @ 100 mls/hr IVPB Q8H [facility] Last Admin: 12/28/16 09:04 Dose: 100 mls/hr Propofol (Diprivan) 100 mls @ 1.71 mls/hr IV .Q24H PRN; Protocol; 5 MCG/KG/MIN PRN Reason: TITRATE PER MD ORDER Last Titration: 12/28/16 08:00 Dose: 10 mcg/kg/min Dopamine HCl/Dextrose (Dopamine 400mg/250ml D5w) 250 mls @ 10.606 mls/hr IV .[id number] PRN; Protocol; 5 MCG/KG/MIN PRN Reason: TITRATE PER MD ORDER Last Titration: 12/27/16 10:00 Dose: 5 mcg/kg/min Potassium Phosphate 15 mmole/ (Dextrose) 255 mls @ 42.5 mls/hr IVPB ONCE ONE Stop: 12/28/16 15:39 Last Admin: 12/28/16 10:13 Dose: 42.5 mls/hr - Labs Labs: 12/28/16 06:20 12/28/16 06:20 PT 19.4 SECONDS (9.7-12.2) H 12/25/16 06:11 INR 1.7 12/25/16 06:11 APTT 34 SECONDS (21-34) D 12/25/16 06:11
--- NOTE | 2016-12-28 12:35 | CT ---
CT chest without IV contrast Indication: Cavitary lesions in the right upper lobe Technique: Contiguous axial images were obtained through the chest without intravenous contrast enhancement. Sagittal and coronal reconstructions were generated and reviewed. Radiation dose (DLP): 298.33 MGy-cm. Comparison: Multiple prior chest x-rays, the most recent performed 12/28/16, CT pancreatic protocol performed 12/25/16 Findings: The endotracheal tube terminates above the level of the isauro. Nasogastric tube extends to the stomach. Streak artifact obscures evaluation of the included portions thyroid gland and unenhanced mediastinal vasculature. Left-sided AICD. Cardiomegaly. Coronary artery calcifications. Extensive right upper lobe consolidation/pneumonia. Bibasilar atelectasis. Small right pleural effusion. No visible pneumothorax. Limited visualization of the upper abdomen demonstrates numerous bilateral renal lesions, possibly cysts. Hyperdense 11 mm left upper pole exophytic lesion, indeterminate (series 4, image 123) . Motion artifact obscures evaluation of the sternum ; correlate clinically to exclude possibility of midsternal fracture. Impression: Extensive right upper lobe consolidation/pneumonia. Bibasilar atelectasis. Small right pleural effusion. Recommend follow-up to resolution. Limited visualization of the upper abdomen demonstrates numerous bilateral renal lesions, possibly cysts. Hyperdense 11 mm left upper pole exophytic lesion, indeterminate. Motion artifact obscures evaluation of the sternum ; correlate clinically to exclude possibility of mid sternal fracture. Left-sided AICD. Cardiomegaly. Coronary artery calcifications.
[2016-12-28] MEDS: Milrinone 20 MG in Dextrose 5% In Water 80 ML IV SCH (15:39)
[2016-12-29] MEDS: Cefepime IV 2 gm in Dextrose 100 ML IVPB SCH ×2 (01:05→10:09)
[2016-12-29] MEDS: Milrinone 20 MG in Dextrose 5% In Water 80 ML IV SCH ×3 (02:25→15:41)
[2016-12-29 04:38] LABS: ABG MECHANICAL RATE 16; ARTERIAL BLOOD HGB O2 SAT 97.3 % (95.0-98.0); ATERIAL BLOOD GAS PEEP 5; CARBOXYHEMOGLOBIN 2.3 % (0.5-1.5); DRAW SITE RB; HHB -0.2 % (0.0-5.0); METHEMOGLOBIN 0.6 % (0.0-3.0)
[2016-12-29 06:21] LABS: BASO % 0.3 % (0.0-2.0); EOS # 0.1 K/uL (0.0-0.7); EOS % 0.8 % (0.0-4.0); HEMATOCRIT 28.6 % (34.0-47.0); LYMPH # 0.6 K/uL (1.0-4.3); LYMPH % 5.4 % (20.0-40.0); MEAN CORPUSCULAR HEMOGLOBIN 33.6 pg (27.0-31.0); MEAN PLATELET VOLUME 11.4 fL (7.2-11.7); MONO # 0.7 K/uL (0.0-0.8); MONO % 5.7 % (0.0-10.0); NRBC % 0.7 % (0.0-2.0); PLATELET COUNT 75 K/uL (130-400); RED CELL DISTRIBUTION WIDTH 22.7 % (11.5-14.5); WHITE BLOOD COUNT 11.7 K/uL (4.8-10.8)
[2016-12-29 06:33] LABS: POTASSIUM 3.4 mmol/L (3.6-5.2)
[2016-12-29 06:35] LABS: ALB/GLOB RATIO 0.5 (1.0-2.1); BILIRUBIN,TOTAL 4.5 mg/dL (0.2-1.3); CALCIUM 7.4 mg/dl (8.6-10.4); PHOSPHOROUS 1.8 mg/dL (2.5-4.5); TOTAL PROTEIN 5.3 g/dL (6.3-8.3)
[2016-12-29] MEDS ORDERED: Potassium Chloride 20 mEq 100 ML IVPB ONE (07:55)
[2016-12-29 08:11] LABS: EOSINOPHIL 1 % (0-4); NEUTROPHIL 87 % (50-75); PROMYELOCYTE 0 % (0-0); TOTAL CELLS COUNTED 100
[2016-12-29 08:12] LABS: NUCLEATED RED BLOOD CELL 2 % (0-0); REACTIVE LYMPHOCYTES 2 % (0-0)
[2016-12-29 08:15] LABS: LARGE PLATELETS PRESENT
--- NOTE | 2016-12-29 08:34 | RAD ---
HISTORY: rule out tb/ asp pna COMPARISON: 12/28/2016 FINDINGS: LUNGS: Lines and tubes in stable position. Persistent ill-defined confluent airspace opacities in the right upper to mid lung zone. Minimal patchy increased markings at the left lung base. PLEURA: No significant pleural effusion identified, no pneumothorax apparent. CARDIOVASCULAR: Left-sided pacemaker. OSSEOUS STRUCTURES: No significant abnormalities. VISUALIZED UPPER ABDOMEN: Normal. OTHER FINDINGS: None. IMPRESSION: Lines and tubes in stable position. Persistent ill-defined confluent airspace opacities in the right upper to mid lung zone. Minimal patchy increased markings at the left lung base.
[2016-12-29] MEDS: Sodium Chloride 0.9% 1,000 ML IV SCH ×2 (09:59→15:44)
[2016-12-29] MEDS ORDERED: Potassium Phosphate 15 MMOLE in Sodium Chloride 0.9% 250 ML IVPB ONE (10:00)
[2016-12-29] MEDS ORDERED: Albumin Human 25% (12.5 gm/50 ml) IV ONE (10:00)
[2016-12-29] MEDS: Petrolatum Oint Foilpak (5 gm) TOP PRN (10:10)
[2016-12-29] MEDS: Azithromycin 500 MG in Sodium Chloride 0.9% 250 ML IVPB SCH (10:29)
--- NOTE | 2016-12-29 16:23 | CP.CCUPN ---
<Stephanie Echeverria - Last Filed: 12/29/16 17:00> CCU Subjective - Physician Review Subjective (Free Text): 12/28/16 20:48 Patient seen and examined at bedside. No acute distress. No acute events overnight per nursing. Patient back on AC/PRVC. Patient's persistent low BP halted attempts at a weaning trial. Patient able to follow commands. 12/29/16 15:52 Patient seen and examined at bedside. Per nursing decreased urine output. Patient began Milrinone drip yesterday at 0.5 mcg/kg/mi. Bp remains hypotensive but stable. Critical Care Time Spent (in minutes): 42 CCU Objective - Vital Signs / Intake & Output Vital Signs (Last 4 hours): Vital Signs Temp Pulse Resp BP Pulse Ox 12/29/16 15:00 97 H 20 99/51 L 100 12/29/16 14:00 101 H 24 97/49 L 100 12/29/16 13:00 104 H 23 85/43 L 100 12/29/16 12:27 112 H 26 H 106/66 100 12/29/16 12:00 97.6 F 109 H 24 106/66 100 Intake and Output (Last 8hrs): Intake & Output 12/29/16 12/29/16 12/29/16 06:59 14:59 22:59 Intake Total 534.4 1779.4 336.4 Output Total 170 159 13 Balance 364.4 1620.4 323.4 Weight 119 lb 7.849 oz Intake: Intake, IV Amount 194.4 1499.4 301.4 Right Proximal Port 27.2 60.2 Internal Jugular Right Medial Port 67.2 67.2 8.4 Internal Jugular Right Distal Port 100 272 43 Internal Jugular Right Distal Port 1100 250 Oral 60 Tube Feeding 280 280 35 Output: Urine 170 159 13 Urethral (Brunner) 170 159 13 Other: # Bowel Movements 1 1 0 - Physical Exam Head: Positive for: Atraumatic, Normocephalic Pupils: Positive for: PERRL Extroacular Muscles: Positive for: EOMI Conjunctiva: Positive for: Normal Mouth: Positive for: Moist Mucous Membranes Pharnyx: Positive for: Other (intubated, OG tube) Respiratory/Chest: Positive for: Good Air Exchange, Other (intubated) Cardiovascular: Positive for: Normal S1, S2. Negative for: Murmurs Abdomen: Positive for: Normal Bowel Sounds. Negative for: Tenderness, Distention Upper Extremity: Positive for: Other (scratches to upper extremities noted) Lower Extremity: Positive for: Other (1+ pitting edema to bilateral lower extremities ) Neurological: Positive for: Other (responsive to pain, corneal reflex, gag and cough reflexes intact, pupils reactive to light) Skin: Positive for: Warm, Dry - Medications Active Medications: Active Medications Generic Name Dose Route Start Last Admin Trade Name Freq PRN Reason Stop Dose Admin Emollient Ointment 5 gm 12/27/16 21:16 12/29/16 10:10 Vaseline Oint TOP 5 gm QID PRN Administration Famotidine 20 mg 12/29/16 10:00 12/29/16 10:09 Pepcid PO 20 mg DAILY LINN Administration Hydroxychloroquine Sulfate 200 mg 12/23/16 10:00 12/29/16 10:29 Plaquenil PO 200 mg BID LINN Administration Azithromycin 500 mg/ Sodium 250 mls @ 250 mls/hr 12/23/16 10:00 12/29/16 10:29 Chloride IVPB 250 mls/hr DAILY LINN Administration Propofol 100 mls @ 1.71 mls/hr 12/25/16 11:07 12/29/16 15:40 Diprivan IV 10 mcg/kg/min .Q24H PRN Titration TITRATE PER MD ORDER Protocol 5 MCG/KG/MIN Dopamine HCl/Dextrose 250 mls @ 10.606 mls/hr 12/26/16 12:20 12/28/16 07:00 Dopamine 400mg/250ml D5w IV 0 mcg/kg/min .[id number] PRN Titration TITRATE PER MD ORDER Protocol 5 MCG/KG/MIN Milrinone Lactate/Dextrose 20 100 mls @ 8.4 mls/hr 12/28/16 15:30 12/29/16 15: 41 mg/ Dextrose IV Not Given .[id number] LINN 0.5 MCG/KG/MIN Cefepime HCl 100 mls @ 100 mls/hr 12/29/16 10:00 12/29/16 10:09 Maxipime Iv 2 Gm Premix IVPB 01/03/17 10:01 100 mls/hr Q24H LINN Administration Sodium Chloride 1,000 mls @ 250 mls/hr 12/29/16 09:30 12/29/16 15:44 Sodium Chloride 0.9% IV 250 mls/hr .Q4H LINN Administration Potassium Phosphate 15 mmole/ 255 mls @ 42.5 mls/hr 12/29/16 10:00 12/29/16 10: 27 Sodium Chloride IVPB 12/29/16 15:59 42.5 mls/hr ONCE ONE Administration - Patient Studies Lab Studies: Lab Studies 12/29/16 12/29/16 12/28/16 Range/Units 06:08 04:25 18:15 WBC 11.7 H (4.8-10.8) K/uL RBC 2.81 L (3.80-5.20) Mil/uL Hgb 9.5 L (11.0-16.0) g/dL Hct 28.6 L (34.0-47.0) % MCV 102.0 H D (81.0-99.0) fL MCH 33.6 H (27.0-31.0) pg MCHC 33.0 (33.0-37.0) g/dL RDW 22.7 H (11.5-14.5) % Plt Count 75 L (130-400) K/uL MPV 11.4 (7.2-11.7) fL Neut % (Auto) 87.8 H (50.0-75.0) % Lymph % (Auto) 5.4 L (20.0-40.0) % [place] % (Auto) 5.7 (0.0-10.0) % Eos % (Auto) 0.8 (0.0-4.0) % Baso % (Auto) 0.3 (0.0-2.0) % Neut # 10.3 H (1.8-7.0) K/uL Lymph # 0.6 L (1.0-4.3) K/uL [place] # 0.7 (0.0-0.8) K/uL Eos # 0.1 (0.0-0.7) K/uL Baso # 0.0 (0.0-0.2) K/uL Neutrophils % (Manual) 87 H (50-75) % Lymphocytes % (Manual) 4 L (20-40) % Reactive Lymphs % 2 H (0-0) % Monocytes % (Manual) 3 (0-10) % Eosinophils % (Manual) 1 (0-4) % Promyelocytes % 0 (0-0) % Plasma Cell % (Manual) 1 H (0-0) Nucleated RBC % 2 H (0-0) % Platelet Estimate Decreased L (NORMAL) Large Platelets Present Polychromasia Slight Poikilocytosis (manual Slight Anisocytosis (manual) Slight Macrocytosis (manual) Moderate Target Cells Slight Puncture Site Rb pCO2 25 L (35-45) mm/Hg pO2 159 H (80-100) mm/Hg HCO3 16.1 L (21-28) mmol/L ABG pH 7.33 L (7.35-7.45) ABG Total CO2 14.0 L (22-28) mmol/L ABG O2 Saturation 100.2 H (95-98) % ABG Base Excess -11.3 L (-2.0-3.0) mmol/L ABG Hemoglobin 9.6 L (11.7-17.4) g/dL ABG Carboxyhemoglobin 2.3 H (0.5-1.5) % POC ABG HHb (Measured) -0.2 L (0.0-5.0) % ABG Methemoglobin 0.6 (0.0-3.0) % Billy Test Na A-a O2 Difference 95.0 mm/Hg Respiratory Index 0.6 Hgb O2 Saturation 97.3 (95.0-98.0) % Mechanical Rate 16 FiO2 40.0 % Tidal Volume 500 PEEP 5 Sodium 142 (132-148) mmol/L Potassium 3.4 L (3.6-5.2) mmol/L Chloride 114 H (98-107) mmol/L Carbon Dioxide 15 L (22-30) mmol/L Anion Gap 16 (10-20) BUN 44 H (7-17) mg/dL Creatinine 2.4 H (0.7-1.2) MG/DL Est GFR ( Amer) 25 Est GFR (Non-Af Amer) 21 Random Glucose 86 (65-105) mg/dL Calcium 7.4 L (8.6-10.4) mg/dl Phosphorus 1.8 L (2.5-4.5) mg/dL Magnesium 2.0 (1.6-2.3) mg/dL Total Bilirubin 4.5 H (0.2-1.3) mg/dL AST 738 H D (14-36) U/L ALT 351 H D (9-52) U/L Alkaline Phosphatase 124 (38-126) U/L Total Protein 5.3 L (6.3-8.3) g/dL Albumin 1.9 L (3.5-5.0) g/dL Globulin 3.5 (2.2-3.9) gm/dL Albumin/Globulin Ratio 0.5 L (1.0-2.1) C. difficile Ag & Toxin Negative (NEGATIVE) Laboratory Results - last 24 hr 12/28/16 12/29/16 12/29/16 18:15 04:25 06:08 WBC 11.7 H RBC 2.81 L Hgb 9.5 L Hct 28.6 L MCV 102.0 H D MCH 33.6 H MCHC 33.0 RDW 22.7 H Plt Count 75 L MPV 11.4 Neut % (Auto) 87.8 H Lymph % (Auto) 5.4 L [place] % (Auto) 5.7 Eos % (Auto) 0.8 Baso % (Auto) 0.3 Neut # 10.3 H Lymph # 0.6 L [place] # 0.7 Eos # 0.1 Baso # 0.0 Neutrophils % (Manual) 87 H Lymphocytes % (Manual) 4 L Reactive Lymphs % 2 H Monocytes % (Manual) 3 Eosinophils % (Manual) 1 Promyelocytes % 0 Plasma Cell % (Manual) 1 H Nucleated RBC % 2 H Platelet Estimate Decreased L Large Platelets Present Polychromasia Slight Poikilocytosis (manual Slight Anisocytosis (manual) Slight Macrocytosis (manual) Moderate Target Cells Slight Puncture Site Rb pCO2 25 L pO2 159 H HCO3 16.1 L ABG pH 7.33 L ABG Total CO2 14.0 L ABG O2 Saturation 100.2 H ABG Base Excess -11.3 L ABG Hemoglobin 9.6 L ABG Carboxyhemoglobin 2.3 H POC ABG HHb (Measured) -0.2 L ABG Methemoglobin 0.6 Billy Test Na A-a O2 Difference 95.0 Respiratory Index 0.6 Hgb O2 Saturation 97.3 Mechanical Rate 16 FiO2 40.0 Tidal Volume 500 PEEP 5 Sodium 142 Potassium 3.4 L Chloride 114 H Carbon Dioxide 15 L Anion Gap 16 BUN 44 H Creatinine 2.4 H Est GFR ( Amer) 25 Est GFR (Non-Af Amer) 21 Random Glucose 86 Calcium 7.4 L Phosphorus 1.8 L Magnesium 2.0 Total Bilirubin 4.5 H AST 738 H D ALT 351 H D Alkaline Phosphatase 124 Total Protein 5.3 L Albumin 1.9 L Globulin 3.5 Albumin/Globulin Ratio 0.5 L C. difficile Ag & Toxin Negative Fingerstick Blood Sugar Results: 105 Review of Systems - Review of Systems Systems not reviewed;Unavailable: Intubated - Constitutional Constitutional: absent: Fever, Chills - EENT Eyes: As Per HPI Additional comments: intubated - Cardiovascular Cardiovascular: absent: Chest Pain, Chest Pain at Rest - Respiratory Respiratory: absent: Dyspnea - Gastrointestinal Gastrointestinal: absent: Abdominal Pain, Nausea, Vomiting Assessment/Plan - Assessment and Plan (Free Text) Assessment: Pt is 61F with extensive medical history pertinent for lupus, heart failure with AICD, stroke with left-sided deficit, and HTN admitted to the ICU s/p agonal breathing requiring intubation on medical floor. Patient being treated for sepsis likely secondary to aspiration pneumonia. Considerations were made for cavitary lesions which prompted a mycobacterium tuberculosis workup however likely pneumonia following rounds today. Plan: Neuro: Sedated on Propofol (previously Versed) History of CVA with residual weakness Head CT: No evidence of acute intracranial hemorrhage, acute territorial infarct , mass effect or midline shift. Moderate-size encephalomalacia at the left temporal parietal lobe suggestive of chronic left MCA territory infarct. Moderate atrophy and white matter changes. Cardio: Currently low normotensive- hypotensive. SBP in 90s overnight. CHF with EF noted to be 26% on previous echocardiogram; Low dose Milrinone started- 0.5 mcg/kg/min Repeat echo (12/22/16): LVEF <20%, LV is mildly dilated, LA is mildly dilated. Mild AR, moderate-severe MR, Moderate-severe pulmonary HTN. 12/28/[address] - Left-sided AICD. Cardiomegaly. Coronary artery calcifications. AICD - interrogated and has low battery life and will need replacing once medically stable. Inotropes are considered. Pro-BNP 32,000 (12/22/16) History of HTN Follows moisture tester Dr. Rubio as outpatient Brim Rounder Dr. Voudouris consulted - help appreciated On Dopamine drip TLC in RIJ YOUSUF panel negative. Troponins 0.0240>0.0670>0.0830 Pulm: Intubated on AC/PRVC, Observed RR 30 Vent settings: 500/16/5 FiO2 40% 12/29/16 ABG: pCO2 25, pO2 159, HCO3 16.1, pH 7.33 12/28/16 ABG: pCO2 25, pO2 115, HCO3 17.3, pH 7.36 12/25/16 ABG: pCO2 24, pO2 191, HCO3 20.3, pH 7.44, Lactate 1.4 12/24/16 ABG: pCO2 26, pO2 221, HCO3 17.9, pH 7.36, lactate 2.3 Saturating 98% 12/29/16 Chest XRAY: Lines and tubes stable. Persistent ill-defined confluent airspace opacities in RU to mid lung zones; minimal patchy increased markings at the left lung base 12/28/[address] - Extensive right upper lobe consolidation/pneumonia. Bibasilar atelectasis. Small right pleural effusion. Recommend follow-up to resolution. Suspected cavitary lsions prompt- airborne isolation for Tb precautions- F/U mycobacterium tuberculosis studies 12/28/16 CXR: Lines and tubes in stable position. Left-sided pacemaker. Persistent ill-defined consolidative changes seen within the right upper to mid lung zone. No significant interval change. 12/25/16 CXR: Endotracheal tube extending into the midthoracic trachea. NG tube extending into stomach. Right central venous catheter extending in to the cavoatrial junction. Dense consolidative opacification of the right upper and midlung zones. Milder patchy opacity at the lung base. Diffuse increased interstitial lung markings. 12/24/16 CXR: Worsening RUL consolidation, cardiomegaly, left-sided AICD CT Abdomen and Pelvis w/o contrast (12/22/16): Small to moderate R pleural effusion. Possible aspiration pneumonia Antibiotics as below GI: Still has diarrhea, stool sample for C.diff negative OG tube, receiving feeds Hepatitis panel negative, AMA negative (r/o PBC), Ceruloplasmin negative, Anti- SM and LKM Ab (r/o autoimmune hepatitis) - pending. GI will consider EUS if workup is negative and direct bili remains elevated. Pancreatic protocol CT (12/25/16) - Fatty infiltration of the liver, heterogeneous. Innumerable small enhancing nodules on portal venous phase images of the liver. Uncertain significance. Consider metastatic disease. Unlikely hepatocellular neoplasm. No evidence of pancreatitis or pancreatic mass. No biliary obstruction. Mild ascites. Small right and trace left pleural effusion with lower lobe compressive atelectasis. Permanent pacemaker. Nasogastric tube. Brunner catheter. T.bili of 9.5, Direct bili of 7.2, GGT 126, AST 126, ALT 79 on admission T. bili 6.6, AST 163, ALT 105 (12/24/16) T. bili 7.6, AST 201, ALT 109 (12/25/16) T. bili 5.3, AST 507, ALT 221, Alk phos 132 (12/28/16) Continue to trend T.bili and LFTs - acutely worsened - likely 2/[address] Abdomen and Pelvis w/o contrast (12/22/16): Small to moderate right pleural effusion. Trace ascites. Nonspecific presacral edema. Mild generalized anasarca. Mild hepatomegaly with fatty infiltration of the liver. No evidence of biliary obstruction. No evidence of cholecystitis. Mild nonspecific presacral edema, possibly related generalized anasarca. RUQ US (12/23/16): Right renal cysts. Incidental note is made of small right pleural effusion. Echogenic liver may be in setting of hepatic parenchymal disease or fatty infiltration. Small perihepatic ascites. Small fluid is noted by the gallbladder fossa. Gallbladder wall thickening/pericholecystic edema without evidence of gallstones. Negative sonographic Hutchinson's sign as assessed by the business line controller. No portal vein thrombosis. Heme: Hgb 9.5 Hct 28.6 Plt 75 Thrombocytopenia Monitor Endo: T3 and T4 are low on admission with normal TSH TSH 1.34, T3 uptake >65.o, Free T4 0.87 Maintain euglycemia Rheumatology: History of lupus On plaquenil 200mg BID Folic acid 1mg PO daily IgG 1775.0 IgA 510.1 IgM 66.[address] Reynaga as outpatient Nephro: BUN/Cr 44/2.4 ( worsened from yesterday). Poor urine output- Given fluids and increased rate to NS 250 cc per hr but no change in output Electrolytes within normal limits UTI: 12/26 culture positive for E.Coli, Abx as below 3/13/[address] - Limited visualization of the upper abdomen demonstrates numerous bilateral renal lesions, possibly cysts. Hyperdense 11 mm left upper pole exophytic lesion, indeterminate. Monitor : monitor urine output Brunner in ID: WBC: 11.7 Possible aspiration pneumonia Hepatitis panel negative UTI, urine cx positive for E.coli Started Cefepime 2gm IVPB Q8H (12/24/16) On Azithromycin 500 mg IVPB daily, Cefepime IV 2GM daily Stool for C.diff - pending collection Mycobacterial culture - pending Pt transferred to negative pressure room Prophylaxis: SCDs Pepcid 20mg PO BID <Shola Michael S - Last Filed: 12/29/16 18:27> CCU Objective - Vital Signs / Intake & Output Vital Signs (Last 4 hours): Vital Signs Temp Pulse Resp BP Pulse Ox 12/29/16 18:00 99 H 22 91/43 L 100 12/29/16 17:00 98 H 23 96/49 L 100 12/29/16 16:00 97.9 F 102 H 18 95/50 L 100 12/29/16 15:00 97 H 20 99/51 L 100 Intake and Output (Last 8hrs): Intake & Output 12/29/16 12/29/16 12/29/16 06:59 14:59 22:59 Intake Total 534.4 1779.4 519.8 Output Total 170 159 31 Balance 364.4 1620.4 488.8 Weight 119 lb 7.849 oz Intake: Intake, IV Amount 194.4 1499.4 379.8 Right Proximal Port 27.2 60.2 10.2 Internal Jugular Right Medial Port 67.2 67.2 33.6 Internal Jugular Right Distal Port 100 272 86 Internal Jugular Right Distal Port 1100 250 Oral 60 Tube Feeding 280 280 140 Output: Urine 170 159 31 Urethral ([place]runner) 170 159 31 Other: # Bowel Movements 1 1 1 - Medications Active Medications: Active Medications Generic Name Dose Route Start Last Admin Trade Name Freq PRN Reason Stop Dose Admin Emollient Ointment 5 gm 12/27/16 21:16 12/29/16 10:10 Vaseline Oint TOP 5 gm QID PRN Administration Famotidine 20 mg 12/29/16 10:00 12/29/16 10:09 Pepcid PO 20 mg DAILY LINN Administration Hydroxychloroquine Sulfate 200 mg 12/23/16 10:00 12/29/16 17:20 Plaquenil PO 200 mg BID LINN Administration Azithromycin 500 mg/ Sodium 250 mls @ 250 mls/hr 12/23/16 10:00 12/29/16 10:29 Chloride IVPB 250 mls/hr DAILY LINN Administration Propofol 100 mls @ 1.71 mls/hr 12/25/16 11:07 12/29/16 15:40 Diprivan IV 10 mcg/kg/min .Q24H PRN Titration TITRATE PER MD ORDER Protocol 5 MCG/KG/MIN Dopamine HCl/Dextrose 250 mls @ 10.606 mls/hr 12/26/16 12:20 12/28/16 07:00 Dopamine 400mg/250ml D5w IV 0 mcg/kg/min .[id number] PRN Titration TITRATE PER MD ORDER Protocol 5 MCG/KG/MIN Milrinone Lactate/Dextrose 20 100 mls @ 8.4 mls/hr 12/28/16 15:30 12/29/16 15: 41 mg/ Dextrose IV Not Given .[id number] LINN 0.5 MCG/KG/MIN Cefepime HCl 100 mls @ 100 mls/hr 12/29/16 10:00 12/29/16 10:09 Maxipime Iv 2 Gm Premix IVPB 01/03/17 10:01 100 mls/hr Q24H LINN Administration - Patient Studies Lab Studies: Microbiology Studies 12/27/16 08:22 Mycobacterial Culture - Preliminary Other: Please Indicate Lab Studies 12/29/16 12/29/16 12/28/16 Range/Units 06:08 04:25 18:15 WBC 11.7 H (4.8-10.8) K/uL RBC 2.81 L (3.80-5.20) Mil/uL Hgb 9.5 L (11.0-16.0) g/dL Hct 28.6 L (34.0-47.0) % MCV 102.0 H D (81.0-99.0) fL MCH 33.6 H (27.0-31.0) pg MCHC 33.0 (33.0-37.0) g/dL RDW 22.7 H (11.5-14.5) % Plt Count 75 L (130-400) K/uL MPV 11.4 (7.2-11.7) fL Neut % (Auto) 87.8 H (50.0-75.0) % Lymph % (Auto) 5.4 L (20.0-40.0) % [place] % (Auto) 5.7 (0.0-10.0) % Eos % (Auto) 0.8 (0.0-4.0) % Baso % (Auto) 0.3 (0.0-2.0) % Neut # 10.3 H (1.8-7.0) K/uL Lymph # 0.6 L (1.0-4.3) K/uL [place] # 0.7 (0.0-0.8) K/uL Eos # 0.1 (0.0-0.7) K/uL Baso # 0.0 (0.0-0.2) K/uL Neutrophils % (Manual) 87 H (50-75) % Lymphocytes % (Manual) 4 L (20-40) % Reactive Lymphs % 2 H (0-0) % Monocytes % (Manual) 3 (0-10) % Eosinophils % (Manual) 1 (0-4) % Promyelocytes % 0 (0-0) % Plasma Cell % (Manual) 1 H (0-0) Nucleated RBC % 2 H (0-0) % Platelet Estimate Decreased L (NORMAL) Large Platelets Present Polychromasia Slight Poikilocytosis (manual Slight Anisocytosis (manual) Slight Macrocytosis (manual) Moderate Target Cells Slight Puncture Site Rb pCO2 25 L (35-45) mm/Hg pO2 159 H (80-100) mm/Hg HCO3 16.1 L (21-28) mmol/L ABG pH 7.33 L (7.35-7.45) ABG Total CO2 14.0 L (22-28) mmol/L ABG O2 Saturation 100.2 H (95-98) % ABG Base Excess -11.3 L (-2.0-3.0) mmol/L ABG Hemoglobin 9.6 L (11.7-17.4) g/dL ABG Carboxyhemoglobin 2.3 H (0.5-1.5) % POC ABG HHb (Measured) -0.2 L (0.0-5.0) % ABG Methemoglobin 0.6 (0.0-3.0) % Billy Test Na A-a O2 Difference 95.0 mm/Hg Respiratory Index 0.6 Hgb O2 Saturation 97.3 (95.0-98.0) % Mechanical Rate 16 FiO2 40.0 % Tidal Volume 500 PEEP 5 Sodium 142 (132-148) mmol/L Potassium 3.4 L (3.6-5.2) mmol/L Chloride 114 H (98-107) mmol/L Carbon Dioxide 15 L (22-30) mmol/L Anion Gap 16 (10-20) BUN 44 H (7-17) mg/dL Creatinine 2.4 H (0.7-1.2) MG/DL Est GFR ( Amer) 25 Est GFR (Non-Af Amer) 21 Random Glucose 86 (65-105) mg/dL Calcium 7.4 L (8.6-10.4) mg/dl Phosphorus 1.8 L (2.5-4.5) mg/dL Magnesium 2.0 (1.6-2.3) mg/dL Total Bilirubin 4.5 H (0.2-1.3) mg/dL AST 738 H D (14-36) U/L ALT 351 H D (9-52) U/L Alkaline Phosphatase 124 (38-126) U/L Total Protein 5.3 L (6.3-8.3) g/dL Albumin 1.9 L (3.5-5.0) g/dL Globulin 3.5 (2.2-3.9) gm/dL Albumin/Globulin Ratio 0.5 L (1.0-2.1) C. difficile Ag & Toxin Negative (NEGATIVE) Laboratory Results - last 24 hr 12/28/16 12/29/16 12/29/16 18:15 04:25 06:08 WBC 11.7 H RBC 2.81 L Hgb 9.5 L Hct 28.6 L MCV 102.0 H D MCH 33.6 H MCHC 33.0 RDW 22.7 H Plt Count 75 L MPV 11.4 Neut % (Auto) 87.8 H Lymph % (Auto) 5.4 L [place] % (Auto) 5.7 Eos % (Auto) 0.8 Baso % (Auto) 0.3 Neut # 10.3 H Lymph # 0.6 L [place] # 0.7 Eos # 0.1 Baso # 0.0 Neutrophils % (Manual) 87 H Lymphocytes % (Manual) 4 L Reactive Lymphs % 2 H Monocytes % (Manual) 3 Eosinophils % (Manual) 1 Promyelocytes % 0 Plasma Cell % (Manual) 1 H Nucleated RBC % 2 H Platelet Estimate Decreased L Large Platelets Present Polychromasia Slight Poikilocytosis (manual Slight Anisocytosis (manual) Slight Macrocytosis (manual) Moderate Target Cells Slight Puncture Site Rb pCO2 25 L pO2 159 H HCO3 16.1 L ABG pH 7.33 L ABG Total CO2 14.0 L ABG O2 Saturation 100.2 H ABG Base Excess -11.3 L ABG Hemoglobin 9.6 L ABG Carboxyhemoglobin 2.3 H POC ABG HHb (Measured) -0.2 L ABG Methemoglobin 0.6 Billy Test Na A-a O2 Difference 95.0 Respiratory Index 0.6 Hgb O2 Saturation 97.3 Mechanical Rate 16 FiO2 40.0 Tidal Volume 500 PEEP 5 Sodium 142 Potassium 3.4 L Chloride 114 H Carbon Dioxide 15 L Anion Gap 16 BUN 44 H Creatinine 2.4 H Est GFR ( Amer) 25 Est GFR (Non-Af Amer) 21 Random Glucose 86 Calcium 7.4 L Phosphorus 1.8 L Magnesium 2.0 Total Bilirubin 4.5 H AST 738 H D ALT 351 H D Alkaline Phosphatase 124 Total Protein 5.3 L Albumin 1.9 L Globulin 3.5 Albumin/Globulin Ratio 0.5 L C. difficile Ag & Toxin Negative Attending/Attestation - Attestation I have personally seen and examined this patient.: Yes I have fully participated in the care of the patient.: Yes I have reviewed all pertinent clinical information: Yes Notes (Text): 12/29/16 18:25 Patient seen and examined in the intensive care unit. Case discussed with house staff in the morning rounds. He remains intubated on ventilatory support requiring FiO2 40% On milrinone drip Gentle hydration for poor urine output Continue antibiotics for right upper lung infiltrate Tracheal aspirate for AFB and culture and sensitivity Continue feeding
[2016-12-29] MEDS: Atropine-Diphenoxylate 0.025-2.5 mg Tab PO PRN (22:48)
[2016-12-30] MEDS: Milrinone 20 MG in Dextrose 5% In Water 80 ML IV SCH ×2 (03:00→15:31)
[2016-12-30] MEDS: Atropine-Diphenoxylate 0.025-2.5 mg Tab PO PRN ×2 (03:01→10:33)
[2016-12-30 05:57] LABS: ABG MECHANICAL RATE 16; ARTERIAL BLOOD HGB O2 SAT 97.2 % (95.0-98.0); ATERIAL BLOOD GAS PEEP 5; CARBOXYHEMOGLOBIN 2.4 % (0.5-1.5); DRAW SITE RB; HHB -0.3 % (0.0-5.0); METHEMOGLOBIN 0.7 % (0.0-3.0)
[2016-12-30 06:44] LABS: BASO % 0.2 % (0.0-2.0); EOS # 0.1 K/uL (0.0-0.7); EOS % 0.9 % (0.0-4.0); HEMATOCRIT 26.3 % (34.0-47.0); LYMPH # 0.6 K/uL (1.0-4.3); LYMPH % 4.7 % (20.0-40.0); MEAN CELL VOLUME 104.4 fL (81.0-99.0); MEAN CORPUSCULAR HEMOGLOBIN 33.9 pg (27.0-31.0); MEAN CORPUSCULAR HGB CONC 32.4 g/dL (33.0-37.0); MEAN PLATELET VOLUME 11.3 fL (7.2-11.7); MONO # 0.9 K/uL (0.0-0.8); MONO % 7.2 % (0.0-10.0); NRBC % 0.3 % (0.0-2.0); PLATELET COUNT 91 K/uL (130-400); RED CELL DISTRIBUTION WIDTH 23.1 % (11.5-14.5); WHITE BLOOD COUNT 11.9 K/uL (4.8-10.8)
[2016-12-30 06:53] LABS: POTASSIUM 3.8 mmol/L (3.6-5.2)
[2016-12-30 06:55] LABS: ALB/GLOB RATIO 0.6 (1.0-2.1); BILIRUBIN,TOTAL 4.2 mg/dL (0.2-1.3); PHOSPHOROUS 2.4 mg/dL (2.5-4.5); TOTAL PROTEIN 5.4 g/dL (6.3-8.3)
[2016-12-30 06:56] LABS: CALCIUM 7.8 mg/dl (8.6-10.4); MAGNESIUM 1.9 mg/dL (1.6-2.3)
[2016-12-30 08:16] LABS: EOSINOPHIL 1 % (0-4); NEUTROPHIL 81 % (50-75); TOTAL CELLS COUNTED 100
[2016-12-30 08:20] LABS: LARGE PLATELETS PRESENT
[2016-12-30] MEDS ORDERED: Potassium Phosphate 15 MMOLE in Sodium Chloride 0.9% 250 ML IVPB ONE (08:30)
--- NOTE | 2016-12-30 08:57 | RAD ---
HISTORY: intubated COMPARISON: 12/19/2016 FINDINGS: LUNGS: Persistent hazy opacity in the right upper lobe. PLEURA: No significant pleural effusion identified, no pneumothorax apparent. CARDIOVASCULAR: Stable cardiomediastinal silhouette. OSSEOUS STRUCTURES: The osseous structures demonstrate very mild degenerative changes. VISUALIZED UPPER ABDOMEN: Upper abdomen is suboptimally evaluated. OTHER FINDINGS: ETT, feeding tube, presumed right-sided vascular catheter (with the distal tip in the proximal right atrium) remain stable. Left-sided AICD. IMPRESSION: Persistent hazy opacity in the right upper lobe. No significant interval change.
--- NOTE | 2016-12-30 09:22 | CP.PCM.PN ---
<Ellen Iqbal - Last Filed: 12/30/16 09:19> Subjective - Date & Time of Evaluation Date of Evaluation: 12/30/16 Time of Evaluation: 09:20 - Subjective Subjective: Gastroenterology Fellow/PGY4 Progress Note Patient remains intubated opens eyes to verbal stimuli. Nursing denies acute events overnight. Loose bowel movement overnight. Persistent hypotension, on milrinone drip. Unable to complete a 12-point review of systems, sedated on ventilator support. Objective - Vital Signs/Intake and Output Vital Signs (last 24 hours): Temp Pulse Resp BP Pulse Ox 98.1 F 100 H 17 107/55 L 100 12/30/16 09:17 12/30/16 09:00 12/30/16 07:00 12/30/16 08:57 12/30/16 09:00 Intake and Output: 12/30/16 12/30/16 06:59 18:59 Intake Total 281.6 35.4 Output Total 260 60 Balance 21.6 -24.6 - Medications Medications: Current Medications Diphenoxylate HCl/Atropine (Lomotil 0.025-2.5 Mg Tablet) 1 tab PO Q1H PRN PRN Reason: Diarrhea Stop: 12/31/16 22:38 Last Admin: 12/30/16 03:01 Dose: 1 tab Emollient Ointment (Vaseline Oint) 5 gm TOP QID PRN Last Admin: 12/29/16 10:10 Dose: 5 gm Famotidine (Pepcid) 20 mg PO DAILY [facility] Last Admin: 12/29/16 10:09 Dose: 20 mg Hydroxychloroquine Sulfate (Plaquenil) 200 mg PO BID [facility] Last Admin: 12/29/16 17:20 Dose: 200 mg Azithromycin 500 mg/ Sodium (Chloride) 250 mls @ 250 mls/hr IVPB DAILY [facility] Last Admin: 12/29/16 10:29 Dose: 250 mls/hr Propofol (Diprivan) 100 mls @ 1.71 mls/hr IV .Q24H PRN; Protocol; 5 MCG/KG/MIN PRN Reason: TITRATE PER MD ORDER Last Titration: 12/29/16 15:40 Dose: 10 mcg/kg/min Dopamine HCl/Dextrose (Dopamine 400mg/250ml D5w) 250 mls @ 10.606 mls/hr IV .[id number] PRN; Protocol; 5 MCG/KG/MIN PRN Reason: TITRATE PER MD ORDER Last Titration: 12/28/16 07:00 Dose: 0 mcg/kg/min Milrinone Lactate/Dextrose 20 (mg/ Dextrose) 100 mls @ 8.4 mls/hr IV .[id number] [facility] PRN Reason: 0.5 MCG/KG/MIN Last Admin: 12/30/16 03:00 Dose: 8.4 mls/hr Cefepime HCl (Maxipime Iv 2 Gm Premix) 100 mls @ 100 mls/hr IVPB Q24H [facility] Stop: 01/03/17 10:01 Last Admin: 12/29/16 10:09 Dose: 100 mls/hr Potassium Phosphate 15 mmole/ (Sodium Chloride) 255 mls @ 42.5 mls/hr IVPB ONCE ONE Stop: 12/30/16 14:29 - Labs Labs: 12/30/16 06:41 12/30/16 06:41 PT 19.4 SECONDS (9.7-12.2) H 12/25/16 06:11 INR 1.7 12/25/16 06:11 APTT 34 SECONDS (21-34) D 12/25/16 06:11 - Constitutional Appears: Chronically Ill - Head Exam Head Exam: ATRAUMATIC, NORMOCEPHALIC - Eye Exam Eye Exam: EOMI, PERRL, Scleral icterus Pupil Exam: PERRL. absent: Miosis, Mydriatic - ENT Exam ENT Exam: Mucous Membranes Dry, Normal Oropharynx - Neck Exam Neck Exam: Normal Inspection Additional comments: R IJ central line C/D/I - Respiratory Exam Respiratory Exam: Clear to Ausculation Bilateral, Rhonchi. absent: Rales, Wheezes - Cardiovascular Exam Cardiovascular Exam: Tachycardia, +S1, +S2. absent: Gallop, Rubs - GI/Abdominal Exam GI & Abdominal Exam: Soft, Normal Bowel Sounds. absent: Distended, Firm, Guarding, Rigid, Tenderness, Organomegaly, Rebound - Extremities Exam Additional comments: 2+ RLE pitting edema, LLE pedal edema - Neurological Exam Additional comments: intubated, PERRL - Skin Skin Exam: Dry, Intact, Warm Additional comments: jaundice Assessment and Plan - Assessment and Plan (Free Text) Assessment: 61 year old male with history of CVA, SLE, Hypertension, and CHF with AICD placement presenting with shortness of breath. Active treatment of ventilator dependent hypoxic respiratory failure on 12/24 secondary to community acquired pneumonia complicated by volume overload secondary to CHF decompensation, EF 26 % with severe pulmonary hypertension, and Ecoli UTI. Laboratory findings with hyperbilirubinemia, transaminitis, thrombocytopenia, renal insufficiency, and worsening metabolic acidosis. CT Pancreas without pancreatic mass or biliary obstruction but showing innumerable small liver nodules up to 7mm in size. No prior EGD or colonoscopy. Ventilator dependent hypoxic respiratory failure 2/2 RUL CAP/ CHF decompensation /severe pulmonary hypertension Renal insufficiency, worsening Metabolic acidosis, worsening Cconjugated hyperbilirubinemia/Transaminitis Thrombocytopenia Innumerable small liver nodules Unintentional weight loss Plan: >LFTs multifactorial- ischemic hepatopathy, congestive hepatopathy, antibiotics >small ascites on ultrasound 12/22, repeat ultrasound to assess for new ascites amenable to paracentesis in setting of worsening renal function since 12/26 to assess for hepatorenal syndrome, cardiorenal syndrome, and SBP >recommend Nephrology consult >ICU manaigng- ruling out TB, vasopressor support >on Cefepime and Azithromycin >change to PPI IV daily for stress ulcer prophylaxis >Hepatitis panel, AMA, LKM antibody negative >pending smooth muscle antibody >tolerating tube feeds >will make further recommendations based on clinical course <Samuel Prasad - Last Filed: 12/30/16 11:27> Objective - Vital Signs/Intake and Output Vital Signs (last 24 hours): Temp Pulse Resp BP Pulse Ox 98.1 F 100 H 17 107/55 L 100 12/30/16 09:17 12/30/16 09:00 12/30/16 07:00 12/30/16 08:57 12/30/16 09:00 Intake and Output: 12/30/16 12/30/16 06:59 18:59 Intake Total 281.6 35.4 Output Total 260 60 Balance 21.6 -24.6 - Medications Medications: Current Medications Diphenoxylate HCl/Atropine (Lomotil 0.025-2.5 Mg Tablet) 1 tab PO Q1H PRN PRN Reason: Diarrhea Stop: 12/31/16 22:38 Last Admin: 12/30/16 03:01 Dose: 1 tab Emollient Ointment (Vaseline Oint) 5 gm TOP QID PRN Last Admin: 12/29/16 10:10 Dose: 5 gm Hydroxychloroquine Sulfate (Plaquenil) 200 mg PO BID [facility] Last Admin: 12/30/16 10:18 Dose: Not Given Azithromycin 500 mg/ Sodium (Chloride) 250 mls @ 250 mls/hr IVPB DAILY [facility] Last Admin: 12/30/16 10:18 Dose: 250 mls/hr Propofol (Diprivan) 100 mls @ 1.71 mls/hr IV .Q24H PRN; Protocol; 5 MCG/KG/MIN PRN Reason: TITRATE PER MD ORDER Last Titration: 12/29/16 15:40 Dose: 10 mcg/kg/min Dopamine HCl/Dextrose (Dopamine 400mg/250ml D5w) 250 mls @ 10.606 mls/hr IV .[id number] PRN; Protocol; 5 MCG/KG/MIN PRN Reason: TITRATE PER MD ORDER Last Titration: 12/28/16 07:00 Dose: 0 mcg/kg/min Milrinone Lactate/Dextrose 20 (mg/ Dextrose) 100 mls @ 8.4 mls/hr IV .[id number] [facility] PRN Reason: 0.5 MCG/KG/MIN Last Admin: 12/30/16 03:00 Dose: 8.4 mls/hr Cefepime HCl (Maxipime Iv 2 Gm Premix) 100 mls @ 100 mls/hr IVPB Q24H [facility] Stop: 01/03/17 10:01 Last Admin: 12/30/16 10:18 Dose: 100 mls/hr Potassium Phosphate 15 mmole/ (Sodium Chloride) 255 mls @ 42.5 mls/hr IVPB ONCE ONE Stop: 12/30/16 14:29 Last Admin: 12/30/16 10:16 Dose: 42.5 mls/hr Sodium Chloride (Sodium Chloride 0.9%) 1,000 mls @ 75 mls/hr IV .[id number] [facility] Last Admin: 12/30/16 10:17 Dose: 75 mls/hr Pantoprazole Sodium (Protonix Inj) 40 mg IVP DAILY [facility] Last Admin: 12/30/16 10:17 Dose: 40 mg - Labs Labs: 12/30/16 06:41 12/30/16 06:41 PT 17.7 SECONDS (9.7-12.2) H 12/30/16 10:43 INR 1.6 12/30/16 10:43 APTT 34 SECONDS (21-34) D 12/25/16 06:11 Attending/Attestation - Attestation I have personally seen and examined this patient.: Yes I have fully participated in the care of the patient.: Yes I have reviewed all pertinent clinical information, including history, physical exam and plan: Yes Notes (Text): Patient seen and examined with GI fellow. Agree with her note as documented above with the following additions/exceptions. She remains critically ill in ICU. This is a 61 year old female with history of stroke, SLE, systolic heart failure with AICD placement, HTN who is admitted with dyspnea/hypoxic respiratory failure with pneumonia and E coli UTI. She is found to have abnormal LFTs (possibly due to congestive hepatopathy/ischemia), with CT imaging showing innumerable nodules of liver. Hepatitis panel and autoimmune serologies negative (ASMA pending). Renal function worsening. Obtain repeat abdominal ultrasound to assess for tappable ascites and if present, send for cell count to r/o SBP, culture, protein/albumin. Monitor LFTs (slowly improving ). She would ultimately benefit from triple phase liver CT if Cr stabilizes. The patient remains on milrinone gtt. Continue tube feeding as tolerated. Further recommendations as per cardiology/ICU team. 12/30/16 11:23
--- NOTE | 2016-12-30 09:48 | CP.PCM.PN ---
Subjective - Date & Time of Evaluation Date of Evaluation: 12/30/16 Time of Evaluation: 08:40 - Subjective Subjective: Cardiology progress note for Dr Montelongo. Patient is still intubated, but is alert and able to nod her head yes and no, withdraws with pain. Patient on PRVC with fio2 of 40%. Milrinone 0.5 mcg/kg/min , propofol 10 mcg/kg/min. Objective - Vital Signs/Intake and Output Vital Signs (last 24 hours): Temp Pulse Resp BP Pulse Ox 98.1 F 100 H 17 107/55 L 100 12/30/16 09:17 12/30/16 09:00 12/30/16 07:00 12/30/16 08:57 12/30/16 09:00 Intake and Output: 12/30/16 12/30/16 06:59 18:59 Intake Total 281.6 35.4 Output Total 260 60 Balance 21.6 -24.6 - Medications Medications: Current Medications Diphenoxylate HCl/Atropine (Lomotil 0.025-2.5 Mg Tablet) 1 tab PO Q1H PRN PRN Reason: Diarrhea Stop: 12/31/16 22:38 Last Admin: 12/30/16 03:01 Dose: 1 tab Emollient Ointment (Vaseline Oint) 5 gm TOP QID PRN Last Admin: 12/29/16 10:10 Dose: 5 gm Famotidine (Pepcid) 20 mg PO DAILY [facility] Last Admin: 12/29/16 10:09 Dose: 20 mg Hydroxychloroquine Sulfate (Plaquenil) 200 mg PO BID [facility] Last Admin: 12/29/16 17:20 Dose: 200 mg Azithromycin 500 mg/ Sodium (Chloride) 250 mls @ 250 mls/hr IVPB DAILY [facility] Last Admin: 12/29/16 10:29 Dose: 250 mls/hr Propofol (Diprivan) 100 mls @ 1.71 mls/hr IV .Q24H PRN; Protocol; 5 MCG/KG/MIN PRN Reason: TITRATE PER MD ORDER Last Titration: 12/29/16 15:40 Dose: 10 mcg/kg/min Dopamine HCl/Dextrose (Dopamine 400mg/250ml D5w) 250 mls @ 10.606 mls/hr IV .[id number] PRN; Protocol; 5 MCG/KG/MIN PRN Reason: TITRATE PER MD ORDER Last Titration: 12/28/16 07:00 Dose: 0 mcg/kg/min Milrinone Lactate/Dextrose 20 (mg/ Dextrose) 100 mls @ 8.4 mls/hr IV .[id number] [facility] PRN Reason: 0.5 MCG/KG/MIN Last Admin: 12/30/16 03:00 Dose: 8.4 mls/hr Cefepime HCl (Maxipime Iv 2 Gm Premix) 100 mls @ 100 mls/hr IVPB Q24H [facility] Stop: 01/03/17 10:01 Last Admin: 12/29/16 10:09 Dose: 100 mls/hr Potassium Phosphate 15 mmole/ (Sodium Chloride) 255 mls @ 42.5 mls/hr IVPB ONCE ONE Stop: 12/30/16 14:29 Sodium Chloride (Sodium Chloride 0.9%) 1,000 mls @ 75 mls/hr IV .[id number] [facility] Pantoprazole Sodium (Protonix Inj) 40 mg IVP DAILY [facility] - Labs Labs: 12/30/16 06:41 12/30/16 06:41 PT 19.4 SECONDS (9.7-12.2) H 12/25/16 06:11 INR 1.7 12/25/16 06:11 APTT 34 SECONDS (21-34) D 12/25/16 06:11 - Constitutional Appears: No Acute Distress, Older Than Stated Age, Chronically Ill - Head Exam Head Exam: ATRAUMATIC, NORMAL INSPECTION, NORMOCEPHALIC - Eye Exam Eye Exam: Normal appearance - ENT Exam ENT Exam: Mucous Membranes Moist (ETT and OGT in place. ) - Respiratory Exam Respiratory Exam: Decreased Breath Sounds. absent: Rhonchi, Wheezes, Stridor - Cardiovascular Exam Cardiovascular Exam: REGULAR RHYTHM, +S1, +S2. absent: Irregular Rhythm - GI/Abdominal Exam GI & Abdominal Exam: Distended (mild distended. ), Soft. absent: Tenderness - Extremities Exam Extremities Exam: absent: Pedal Edema - Neurological Exam Additional comments: alert, but lethargic, on propofol. - Psychiatric Exam Psychiatric exam: Normal Affect, Normal Mood - Skin Skin Exam: Dry, Warm Assessment and Plan - Assessment and Plan (Free Text) Assessment: 61 y/o with PMH of Lupus, dilated cardiomyopathy s/p ICD, CVA with left sided residue, htn admitted with: 1) Hypoxemic respiratory failure 2nd to HAP/CHF exacerbation LVEF of 20% with mod-severe pulm htn on echo- s/p ICD 2) Septic shock-now on milrinone. 3) Ecoli UTI 4) Transaminitis 5) VERONICA 6) Hypokalemia/hypophosphatemia 7) Thrombocytopenia- r/o HIT 8) Anemia 9) Metabolic acidosis with respiratory alkalosis. Plan: - ICD interrogated, Normal except the ICD has low battery life and will need replacing once patient is medically stable. - Patient is on cefepime anf z-pach for pneumonia and ecoli uti. - Patient is on milrinone drip for Hypotension. - Patient is on plaquenil for lupus. - On protonix for gi prophylaxis. - SCD for dvt prophylaxis. -Gi following, patient is in ICU. Patient seen, examined, case discussed with Dr Montelongo.
[2016-12-30] MEDS: Sodium Chloride 0.9% 1,000 ML IV SCH (10:17)
[2016-12-30] MEDS: Cefepime IV 2 gm in Dextrose 100 ML IVPB SCH (10:18)
[2016-12-30] MEDS: Azithromycin 500 MG in Sodium Chloride 0.9% 250 ML IVPB SCH (10:18)
[2016-12-30 11:00] LABS: INR 1.6
--- NOTE | 2016-12-30 11:01 | US ---
Limited abdominal ultrasound History: Evaluate for ascites. Findings: Limited abdominal ultrasound obtained. No definite perihepatic ascites. Fluid-filled stomach with partially visualized NG tube noted. Impression: Limited abdominal ultrasound evaluation demonstrated no evidence of perihepatic ascites. Distended stomach with fluid NG tube partially visualized.
[2016-12-30 15:14] LABS: HEPARIN-IND PLATELET AB Negative (Negative)
--- NOTE | 2016-12-30 17:39 | CP.CCUPN ---
<Stephanie Echeverria - Last Filed: 12/30/16 17:37> CCU Subjective - Physician Review Subjective (Free Text): 12/28/16 20:48 Patient seen and examined at bedside. No acute distress. No acute events overnight per nursing. Patient back on AC/PRVC. Patient's persistent low BP halted attempts at a weaning trial. Patient able to follow commands. 12/29/16 15:52 Patient seen and examined at bedside. Per nursing decreased urine output. Patient began Milrinone drip yesterday at 0.5 mcg/kg/mi. Bp remains hypotensive but stable. 12/30/16 17:37 Patient seen and examined at bedside in no acute distress. Pt is intubated, on Milrinone drip, still low urine output . BP improved. Unable to obtain ROS at this point due to sedation. CCU Objective - Vital Signs / Intake & Output Vital Signs (Last 4 hours): Vital Signs Pulse Resp BP Pulse Ox 12/30/16 17:00 102 H 24 100 12/30/16 16:57 107 H 23 88/50 L 100 12/30/16 16:00 104 H 16 100 12/30/16 15:56 103 H 28 H 98/50 L 100 12/30/16 15:00 106 H 24 100 12/30/16 14:57 104 H 27 H 100/46 L 100 12/30/16 14:00 105 H 20 100 12/30/16 13:57 105 H 23 98/48 L 100 Intake and Output (Last 8hrs): Intake & Output 12/30/16 12/30/16 12/30/16 06:59 14:59 22:59 Intake Total 94.4 519.4 35.4 Output Total 185 160 60 Balance -90.6 359.4 -24.6 Weight 120 lb Intake: Intake, IV Amount 94.4 519.4 35.4 Right Proximal Port 27.2 27.2 10.2 Internal Jugular Right Medial Port 67.2 67.2 25.2 Internal Jugular Right Distal Port 425 Internal Jugular Output: Urine 185 160 60 Urethral (Brunner) 185 160 60 - Physical Exam Head: Positive for: Atraumatic, Normocephalic Pupils: Positive for: PERRL Extroacular Muscles: Positive for: EOMI Conjunctiva: Positive for: Normal Mouth: Positive for: Moist Mucous Membranes Pharnyx: Positive for: Other (intubated, OG tube) Respiratory/Chest: Positive for: Good Air Exchange, Other (intubated) Cardiovascular: Positive for: Normal S1, S2. Negative for: Murmurs Abdomen: Positive for: Normal Bowel Sounds. Negative for: Tenderness, Distention Upper Extremity: Positive for: Other (scratches to upper extremities noted) Lower Extremity: Positive for: Other (1+ pitting edema to bilateral lower extremities ) Neurological: Positive for: Other (responsive to pain, corneal reflex, gag and cough reflexes intact, pupils reactive to light) Skin: Positive for: Warm, Dry Psychiatric: Positive for: Alert - Medications Active Medications: Active Medications Generic Name Dose Route Start Last Admin Trade Name Freq PRN Reason Stop Dose Admin Diphenoxylate HCl/Atropine 1 tab 12/29/16 22:37 12/30/16 03:01 Lomotil 0.025-2.5 Mg Tablet PO 12/31/16 22:38 1 tab Q1H PRN Administration Diarrhea Emollient Ointment 5 gm 12/27/16 21:16 12/29/16 10:10 Vaseline Oint TOP 5 gm QID PRN Administration Hydroxychloroquine Sulfate 200 mg 12/23/16 10:00 12/30/16 10:18 Plaquenil PO Not Given BID LINN Azithromycin 500 mg/ Sodium 250 mls @ 250 mls/hr 12/23/16 10:00 12/30/16 10:18 Chloride IVPB 250 mls/hr DAILY LINN Administration Propofol 100 mls @ 1.71 mls/hr 12/25/16 11:07 12/29/16 15:40 Diprivan IV 10 mcg/kg/min .Q24H PRN Titration TITRATE PER MD ORDER Protocol 5 MCG/KG/MIN Dopamine HCl/Dextrose 250 mls @ 10.606 mls/hr 12/26/16 12:20 12/28/16 07:00 Dopamine 400mg/250ml D5w IV 0 mcg/kg/min .[id number] PRN Titration TITRATE PER MD ORDER Protocol 5 MCG/KG/MIN Milrinone Lactate/Dextrose 20 100 mls @ 8.4 mls/hr 12/28/16 15:30 12/30/16 03: 00 mg/ Dextrose IV 8.4 mls/hr .[id number] LINN Administration 0.5 MCG/KG/MIN Cefepime HCl 100 mls @ 100 mls/hr 12/29/16 10:00 12/30/16 10:18 Maxipime Iv 2 Gm Premix IVPB 01/03/17 10:01 100 mls/hr Q24H LINN Administration Sodium Chloride 1,000 mls @ 75 mls/hr 12/30/16 09:30 12/30/16 10:17 Sodium Chloride 0.9% IV 75 mls/hr .[id number] LINN Administration Pantoprazole Sodium 40 mg 12/30/16 10:00 12/30/16 10:17 Protonix Inj IVP 40 mg DAILY LINN Administration - Patient Studies Lab Studies: Microbiology Studies 12/29/16 08:55 Mycobacterial Culture - Preliminary Other: Please Indicate 12/27/16 08:22 Mycobacterial Culture - Preliminary Other: Please Indicate Lab Studies 12/30/16 12/30/16 12/30/16 Range/Units 10:43 06:41 05:25 WBC 11.9 H (4.8-10.8) K/uL RBC 2.51 L (3.80-5.20) Mil/uL Hgb 8.5 L (11.0-16.0) g/dL Hct 26.3 L (34.0-47.0) % MCV 104.4 H D (81.0-99.0) fL MCH 33.9 H (27.0-31.0) pg MCHC 32.4 L (33.0-37.0) g/dL RDW 23.1 H (11.5-14.5) % Plt Count 91 L (130-400) K/uL MPV 11.3 (7.2-11.7) fL Neut % (Auto) 87.0 H (50.0-75.0) % Lymph % (Auto) 4.7 L (20.0-40.0) % Moore % (Auto) 7.2 (0.0-10.0) % Eos % (Auto) 0.9 (0.0-4.0) % Baso % (Auto) 0.2 (0.0-2.0) % Neut # 10.3 H (1.8-7.0) K/uL Lymph # 0.6 L (1.0-4.3) K/uL Moore # 0.9 H (0.0-0.8) K/uL Eos # 0.1 (0.0-0.7) K/uL Baso # 0.0 (0.0-0.2) K/uL Neutrophils % (Manual) 81 H (50-75) % Band Neutrophils % 6 H (0-2) % Lymphocytes % (Manual) 5 L (20-40) % Monocytes % (Manual) 7 (0-10) % Eosinophils % (Manual) 1 (0-4) % Toxic Granulation Present Platelet Estimate Decreased L (NORMAL) Large Platelets Present Poikilocytosis (manual Slight Anisocytosis (manual) Moderate Macrocytosis (manual) Moderate Target Cells Moderate Ovalocytes Slight Schistocytes Slight PT 17.7 H (9.7-12.2) SECONDS INR 1.6 Puncture Site Rb pCO2 22 L (35-45) mm/Hg pO2 122 H (80-100) mm/Hg HCO3 13.6 L (21-28) mmol/L ABG pH 7.29 L (7.35-7.45) ABG Total CO2 11.3 L (22-28) mmol/L ABG O2 Saturation 100.3 H (95-98) % ABG Base Excess -14.5 L (-2.0-3.0) mmol/L ABG Hemoglobin 8.3 L (11.7-17.4) g/dL ABG Carboxyhemoglobin 2.4 H (0.5-1.5) % POC ABG HHb (Measured) -0.3 L (0.0-5.0) % ABG Methemoglobin 0.7 (0.0-3.0) % Billy Test Na A-a O2 Difference 136.0 mm/Hg Respiratory Index 1.1 Hgb O2 Saturation 97.2 (95.0-98.0) % Mechanical Rate 16 FiO2 40.0 % Tidal Volume 500 PEEP 5 Sodium 146 (132-148) mmol/L Potassium 3.8 (3.6-5.2) mmol/L Chloride 117 H (98-107) mmol/L Carbon Dioxide 13 L (22-30) mmol/L Anion Gap 20 (10-20) BUN 47 H (7-17) mg/dL Creatinine 3.0 H (0.7-1.2) MG/DL Est GFR ( Amer) 19 Est GFR (Non-Af Amer) 16 Random Glucose 82 (65-105) mg/dL Calcium 7.8 L (8.6-10.4) mg/dl Phosphorus 2.4 L (2.5-4.5) mg/dL Magnesium 1.9 (1.6-2.3) mg/dL Total Bilirubin 4.2 H (0.2-1.3) mg/dL AST 523 H D (14-36) U/L ALT 313 H (9-52) U/L Alkaline Phosphatase 108 (38-126) U/L Total Protein 5.4 L (6.3-8.3) g/dL Albumin 2.0 L (3.5-5.0) g/dL Globulin 3.4 (2.2-3.9) gm/dL Albumin/Globulin Ratio 0.6 L (1.0-2.1) Smooth Muscle Ab Titer Anti-Smooth Muscle Ab (Negative) Heparin-induced Plt Ab (Negative) 12/28/16 12/27/16 Range/Units 16:19 11:47 WBC (4.8-10.8) K/uL RBC (3.80-5.20) Mil/uL Hgb (11.0-16.0) g/dL Hct (34.0-47.0) % MCV (81.0-99.0) fL MCH (27.0-31.0) pg MCHC (33.0-37.0) g/dL RDW (11.5-14.5) % Plt Count (130-400) K/uL MPV (7.2-11.7) fL Neut % (Auto) (50.0-75.0) % Lymph % (Auto) (20.0-40.0) % Moore % (Auto) (0.0-10.0) % Eos % (Auto) (0.0-4.0) % Baso % (Auto) (0.0-2.0) % Neut # (1.8-7.0) K/uL Lymph # (1.0-4.3) K/uL Moore # (0.0-0.8) K/uL Eos # (0.0-0.7) K/uL Baso # (0.0-0.2) K/uL Neutrophils % (Manual) (50-75) % Band Neutrophils % (0-2) % Lymphocytes % (Manual) (20-40) % Monocytes % (Manual) (0-10) % Eosinophils % (Manual) (0-4) % Toxic Granulation Platelet Estimate (NORMAL) Large Platelets Poikilocytosis (manual Anisocytosis (manual) Macrocytosis (manual) Target Cells Ovalocytes Schistocytes PT (9.7-12.2) SECONDS INR Puncture Site pCO2 (35-45) mm/Hg pO2 (80-100) mm/Hg HCO3 (21-28) mmol/L ABG pH (7.35-7.45) ABG Total CO2 (22-28) mmol/L ABG O2 Saturation (95-98) % ABG Base Excess (-2.0-3.0) mmol/L ABG Hemoglobin (11.7-17.4) g/dL ABG Carboxyhemoglobin (0.5-1.5) % POC ABG HHb (Measured) (0.0-5.0) % ABG Methemoglobin (0.0-3.0) % Billy Test A-a O2 Difference mm/Hg Respiratory Index Hgb O2 Saturation (95.0-98.0) % Mechanical Rate FiO2 % Tidal Volume PEEP Sodium (132-148) mmol/L Potassium (3.6-5.2) mmol/L Chloride (98-107) mmol/L Carbon Dioxide (22-30) mmol/L Anion Gap (10-20) BUN (7-17) mg/dL Creatinine (0.7-1.2) MG/DL Est GFR ( Amer) Est GFR (Non-Af Amer) Random Glucose (65-105) mg/dL Calcium (8.6-10.4) mg/dl Phosphorus (2.5-4.5) mg/dL Magnesium (1.6-2.3) mg/dL Total Bilirubin (0.2-1.3) mg/dL AST (14-36) U/L ALT (9-52) U/L Alkaline Phosphatase (38-126) U/L Total Protein (6.3-8.3) g/dL Albumin (3.5-5.0) g/dL Globulin (2.2-3.9) gm/dL Albumin/Globulin Ratio (1.0-2.1) Smooth Muscle Ab Titer TEST NOT PERFORMED Anti-Smooth Muscle Ab Negative (Negative) Heparin-induced Plt Ab Negative (Negative) Laboratory Results - last 24 hr 12/27/16 12/28/16 12/30/16 11:47 16:19 05:25 WBC RBC Hgb Hct MCV MCH MCHC RDW Plt Count MPV Neut % (Auto) Lymph % (Auto) Moore % (Auto) Eos % (Auto) Baso % (Auto) Neut # Lymph # Moore # Eos # Baso # Neutrophils % (Manual) Band Neutrophils % Lymphocytes % (Manual) Monocytes % (Manual) Eosinophils % (Manual) Toxic Granulation Platelet Estimate Large Platelets Poikilocytosis (manual Anisocytosis (manual) Macrocytosis (manual) Target Cells Ovalocytes Schistocytes PT INR Puncture Site Rb pCO2 22 L pO2 122 H HCO3 13.6 L ABG pH 7.29 L ABG Total CO2 11.3 L ABG O2 Saturation 100.3 H ABG Base Excess -14.5 L ABG Hemoglobin 8.3 L ABG Carboxyhemoglobin 2.4 H POC ABG HHb (Measured) -0.3 L ABG Methemoglobin 0.7 Billy Test Na A-a O2 Difference 136.0 Respiratory Index 1.1 Hgb O2 Saturation 97.2 Mechanical Rate 16 FiO2 40.0 Tidal Volume 500 PEEP 5 Sodium Potassium Chloride Carbon Dioxide Anion Gap BUN Creatinine Est GFR ( Amer) Est GFR (Non-Af Amer) Random Glucose Calcium Phosphorus Magnesium Total Bilirubin AST ALT Alkaline Phosphatase Total Protein Albumin Globulin Albumin/Globulin Ratio Smooth Muscle Ab Titer TEST NOT PERFORMED Anti-Smooth Muscle Ab Negative Heparin-induced Plt Ab Negative 12/30/16 12/30/16 06:41 10:43 WBC 11.9 H RBC 2.51 L Hgb 8.5 L Hct 26.3 L MCV 104.4 H D MCH 33.9 H MCHC 32.4 L RDW 23.1 H Plt Count 91 L MPV 11.3 Neut % (Auto) 87.0 H Lymph % (Auto) 4.7 L Moore % (Auto) 7.2 Eos % (Auto) 0.9 Baso % (Auto) 0.2 Neut # 10.3 H Lymph # 0.6 L Moore # 0.9 H Eos # 0.1 Baso # 0.0 Neutrophils % (Manual) 81 H Band Neutrophils % 6 H Lymphocytes % (Manual) 5 L Monocytes % (Manual) 7 Eosinophils % (Manual) 1 Toxic Granulation Present Platelet Estimate Decreased L Large Platelets Present Poikilocytosis (manual Slight Anisocytosis (manual) Moderate Macrocytosis (manual) Moderate Target Cells Moderate Ovalocytes Slight Schistocytes Slight PT 17.7 H INR 1.6 Puncture Site pCO2 pO2 HCO3 ABG pH ABG Total CO2 ABG O2 Saturation ABG Base Excess ABG Hemoglobin ABG Carboxyhemoglobin POC ABG HHb (Measured) ABG Methemoglobin Billy Test A-a O2 Difference Respiratory Index Hgb O2 Saturation Mechanical Rate FiO2 Tidal Volume PEEP Sodium 146 Potassium 3.8 Chloride 117 H Carbon Dioxide 13 L Anion Gap 20 BUN 47 H Creatinine 3.0 H Est GFR ( Amer) 19 Est GFR (Non-Af Amer) 16 Random Glucose 82 Calcium 7.8 L Phosphorus 2.4 L Magnesium 1.9 Total Bilirubin 4.2 H AST 523 H D ALT 313 H Alkaline Phosphatase 108 Total Protein 5.4 L Albumin 2.0 L Globulin 3.4 Albumin/Globulin Ratio 0.6 L Smooth Muscle Ab Titer Anti-Smooth Muscle Ab Heparin-induced Plt Ab Fingerstick Blood Sugar Results: 105 Review of Systems - Review of Systems Review of Systems: as noted in subjective Assessment/Plan - Assessment and Plan (Free Text) Assessment: Pt is 61F with extensive medical history pertinent for lupus, heart failure with AICD, stroke with left-sided deficit, and HTN admitted to the ICU s/p agonal breathing requiring intubation on medical floor. Patient being treated for sepsis likely secondary to aspiration pneumonia. Consideration were made for cavitary lesions which prompted a mycobacterium TB workup, however, likely pneumonia, given negative AFB smear isolation precautions discontinued. Plan: Neuro: Sedated on Propofol (previously Versed) History of CVA with residual weakness Head CT: No evidence of acute intracranial hemorrhage, acute territorial infarct , mass effect or midline shift. Moderate-size encephalomalacia at the left temporal parietal lobe suggestive of chronic left MCA territory infarct. Moderate atrophy and white matter changes. CVS: Currently normotensive, BP 107/60 CHF with EF noted to be 26% on previous echocardiogram Repeat echo (12/22/16): LVEF <20%, LV is mildly dilated, LA is mildly dilated. Mild AR, moderate-severe MR, Moderate-severe pulmonary HTN. 12/28/[address] - Left-sided AICD. Cardiomegaly. Coronary artery calcifications. AICD - interrogated 12/25, no issues Pro-BNP 32,000 (12/22/16) History of HTN Follows nutritional services cook Dr. Rubio as outpatient Immigration Case Worker Dr. Montelongo consulted - help appreciated On Dopamine drip TLC in RIJ YOUSUF panel negative. Troponins 0.0240>0.0670>0.0830 Pulm: Intubated on AC/PRVC, Observed RR 16 Vent settings: 500/16/5 FiO2 40% 12/30/16 ABG: pCO2 22, pO2, HCO3 13.6, pH 7.29 12/28/16 ABG: pCO2 25, pO2 115, HCO3 17.3, pH 7.36 12/25/16 ABG: pCO2 24, pO2 191, HCO3 20.3, pH 7.44, Lactate 1.4 12/24/16 ABG: pCO2 26, pO2 221, HCO3 17.9, pH 7.36, lactate 2.3 Saturating 98% 12/28/[address] - Extensive right upper lobe consolidation/pneumonia. Bibasilar atelectasis. Small right pleural effusion. Recommend follow-up to resolution. 12/30/16 CXR: Persistent hazy opacity in the right upper lobe. No significant interval change. Improved. 12/28/16 CXR: Lines and tubes in stable position. Left-sided pacemaker. Persistent ill-defined consolidative changes seen within the right upper to mid lung zone. No significant interval change. 12/25/16 CXR: Endotracheal tube extending into the midthoracic trachea. NG tube extending into stomach. Right central venous catheter extending in to the cavoatrial junction. Dense consolidative opacification of the right upper and midlung zones. Milder patchy opacity at the lung base. Diffuse increased interstitial lung markings. 12/24/16 CXR: Worsening RUL consolidation, cardiomegaly, left-sided AICD CT Abdomen and Pelvis w/o contrast (12/22/16): Small to moderate R pleural effusion. Possible aspiration pneumonia AFB smear negative, culture pending D/c isolation Antibiotics as below GI: Still has diarrhea, stool sample for C.diff is negative OG tube, receiving feeds Hepatitis panel negative, AMA negative (r/o PBC), Ceruloplasmin negative, LKM ab negative, Anti-SM - pending. GI will consider EUS if workup is negative and direct bili remains elevated. GI consulted - help appreciated Per GI, repeat U/S to assess for hepatorenal syndrome, cardiorenal syndrome and SBP. Change to PPI IV daily Pancreatic protocol CT (12/25/16) - Fatty infiltration of the liver, heterogeneous. Innumerable small enhancing nodules on portal venous phase images of the liver. Uncertain significance. Consider metastatic disease. Unlikely hepatocellular neoplasm. No evidence of pancreatitis or pancreatic mass. No biliary obstruction. Mild ascites. Small right and trace left pleural effusion with lower lobe compressive atelectasis. Permanent pacemaker. Nasogastric tube. Brunner catheter. T.bili of 9.5, Direct bili of 7.2, GGT 126, AST 126, ALT 79 on admission T. bili 6.6, AST 163, ALT 105 (12/24/16) T. bili 7.6, AST 201, ALT 109 (12/25/16) T. bili 5.3, AST 507, ALT 221, Alk phos 132 (12/28/16) T. bili 4.2, AST 523, ALT 313, Alk phos 108 (12/30/16) Continue to trend T.bili and LFTs - stabilizing - likely 2/[address] Abdomen and Pelvis w/o contrast (12/22/16): Small to moderate right pleural effusion. Trace ascites. Nonspecific presacral edema. Mild generalized anasarca. Mild hepatomegaly with fatty infiltration of the liver. No evidence of biliary obstruction. No evidence of cholecystitis. Mild nonspecific presacral edema, possibly related generalized anasarca. RUQ US (12/23/16): Right renal cysts. Incidental note is made of small right pleural effusion. Echogenic liver may be in setting of hepatic parenchymal disease or fatty infiltration. Small perihepatic ascites. Small fluid is noted by the gallbladder fossa. Gallbladder wall thickening/pericholecystic edema without evidence of gallstones. Negative sonographic Hutchinson's sign as assessed by the online marketing strategist. No portal vein thrombosis. Heme: Hgb 8.5 Monitor Hct 26.3 Plt 91 Thrombocytopenia slowly improving Monitor Endo: T3 and T4 are low on admission with normal TSH TSH 1.34, T3 uptake >65.o, Free T4 0.87 Maintain euglycemia Rheumatology: History of lupus On plaquenil 200mg BID Folic acid 1mg PO daily IgG 1775.0 IgA 510.1 IgM 66.[address] Reynaga as outpatient Nephro: BUN/Cr 47/3.0 UTI: 12/26 culture positive for E.Coli, Abx as below 12/28/[address] - Limited visualization of the upper abdomen demonstrates numerous bilateral renal lesions, possibly cysts. Hyperdense 11 mm left upper pole exophytic lesion, indeterminate. Decreased urine output, I/o 2545/390 Nephro (Dr. Wong) consulted -help appreciated Increased IVF Monitor : monitor urine output Brunner in Maintenance fluids 75 cc/hr ID: Leukocytosis (WBC: 11.9) Possible aspiration pneumonia Hepatitis panel negative UTI, urine cx positive for E.coli Started Cefepime 2gm IVPB Q8H (12/24/16) On Azithromycin 500 mg IVPB daily, Cefepime IV 2GM daily Stool for C.diff - negative AFB smear negative Mycobacterial culture - pending D/c isolation Prophylaxis: Heparin 5000U SC Q8H Protonix 40 mg IV daily <Shola Michael S - Last Filed: 12/30/16 18:23> CCU Objective - Vital Signs / Intake & Output Vital Signs (Last 4 hours): Vital Signs Pulse Resp BP Pulse Ox 12/30/16 17:00 102 H 24 100 12/30/16 16:57 107 H 23 88/50 L 100 12/30/16 16:00 104 H 16 100 12/30/16 15:56 103 H 28 H 98/50 L 100 12/30/16 15:00 106 H 24 100 12/30/16 14:57 104 H 27 H 100/46 L 100 Intake and Output (Last 8hrs): Intake & Output 12/30/16 12/30/16 12/30/16 06:59 14:59 22:59 Intake Total 94.4 519.4 35.4 Output Total 185 160 60 Balance -90.6 359.4 -24.6 Weight 120 lb Intake: Intake, IV Amount 94.4 519.4 35.4 Right Proximal Port 27.2 27.2 10.2 Internal Jugular Right Medial Port 67.2 67.2 25.2 Internal Jugular Right Distal Port 425 Internal Jugular Output: Urine 185 160 60 Urethral (Brunner) 185 160 60 - Medications Active Medications: Active Medications Generic Name Dose Route Start Last Admin Trade Name Freq PRN Reason Stop Dose Admin Diphenoxylate HCl/Atropine 1 tab 12/29/16 22:37 12/30/16 03:01 Lomotil 0.025-2.5 Mg Tablet PO 12/31/16 22:38 1 tab Q1H PRN Administration Diarrhea Emollient Ointment 5 gm 12/27/16 21:16 12/29/16 10:10 Vaseline Oint TOP 5 gm QID PRN Administration Hydroxychloroquine Sulfate 200 mg 12/23/16 10:00 12/30/16 10:18 Plaquenil PO Not Given BID LINN Azithromycin 500 mg/ Sodium 250 mls @ 250 mls/hr 12/23/16 10:00 12/30/16 10:18 Chloride IVPB 250 mls/hr DAILY LINN Administration Propofol 100 mls @ 1.71 mls/hr 12/25/16 11:07 12/29/16 15:40 Diprivan IV 10 mcg/kg/min .Q24H PRN Titration TITRATE PER MD ORDER Protocol 5 MCG/KG/MIN Dopamine HCl/Dextrose 250 mls @ 10.606 mls/hr 12/26/16 12:20 12/28/16 07:00 Dopamine 400mg/250ml D5w IV 0 mcg/kg/min .[id number] PRN Titration TITRATE PER MD ORDER Protocol 5 MCG/KG/MIN Milrinone Lactate/Dextrose 20 100 mls @ 8.4 mls/hr 12/28/16 15:30 12/30/16 03: 00 mg/ Dextrose IV 8.4 mls/hr .[id number] LINN Administration 0.5 MCG/KG/MIN Cefepime HCl 100 mls @ 100 mls/hr 12/29/16 10:00 12/30/16 10:18 Maxipime Iv 2 Gm Premix IVPB 01/03/17 10:01 100 mls/hr Q24H LINN Administration Sodium Chloride 1,000 mls @ 75 mls/hr 12/30/16 09:30 12/30/16 10:17 Sodium Chloride 0.9% IV 75 mls/hr .[id number] LINN Administration Pantoprazole Sodium 40 mg 12/30/16 10:00 12/30/16 10:17 Protonix Inj IVP 40 mg DAILY LINN Administration - Patient Studies Lab Studies: Microbiology Studies 12/29/16 08:55 Mycobacterial Culture - Preliminary Other: Please Indicate 12/27/16 08:22 Mycobacterial Culture - Preliminary Other: Please Indicate Lab Studies 12/30/16 12/30/16 12/30/16 Range/Units 10:43 06:41 05:25 WBC 11.9 H (4.8-10.8) K/uL RBC 2.51 L (3.80-5.20) Mil/uL Hgb 8.5 L (11.0-16.0) g/dL Hct 26.3 L (34.0-47.0) % MCV 104.4 H D (81.0-99.0) fL MCH 33.9 H (27.0-31.0) pg MCHC 32.4 L (33.0-37.0) g/dL RDW 23.1 H (11.5-14.5) % Plt Count 91 L (130-400) K/uL MPV 11.3 (7.2-11.7) fL Neut % (Auto) 87.0 H (50.0-75.0) % Lymph % (Auto) 4.7 L (20.0-40.0) % Moore % (Auto) 7.2 (0.0-10.0) % Eos % (Auto) 0.9 (0.0-4.0) % Baso % (Auto) 0.2 (0.0-2.0) % Neut # 10.3 H (1.8-7.0) K/uL Lymph # 0.6 L (1.0-4.3) K/uL Moore # 0.9 H (0.0-0.8) K/uL Eos # 0.1 (0.0-0.7) K/uL Baso # 0.0 (0.0-0.2) K/uL Neutrophils % (Manual) 81 H (50-75) % Band Neutrophils % 6 H (0-2) % Lymphocytes % (Manual) 5 L (20-40) % Monocytes % (Manual) 7 (0-10) % Eosinophils % (Manual) 1 (0-4) % Toxic Granulation Present Platelet Estimate Decreased L (NORMAL) Large Platelets Present Poikilocytosis (manual Slight Anisocytosis (manual) Moderate Macrocytosis (manual) Moderate Target Cells Moderate Ovalocytes Slight Schistocytes Slight PT 17.7 H (9.7-12.2) SECONDS INR 1.6 Puncture Site Rb pCO2 22 L (35-45) mm/Hg pO2 122 H (80-100) mm/Hg HCO3 13.6 L (21-28) mmol/L ABG pH 7.29 L (7.35-7.45) ABG Total CO2 11.3 L (22-28) mmol/L ABG O2 Saturation 100.3 H (95-98) % ABG Base Excess -14.5 L (-2.0-3.0) mmol/L ABG Hemoglobin 8.3 L (11.7-17.4) g/dL ABG Carboxyhemoglobin 2.4 H (0.5-1.5) % POC ABG HHb (Measured) -0.3 L (0.0-5.0) % ABG Methemoglobin 0.7 (0.0-3.0) % Billy Test Na A-a O2 Difference 136.0 mm/Hg Respiratory Index 1.1 Hgb O2 Saturation 97.2 (95.0-98.0) % Mechanical Rate 16 FiO2 40.0 % Tidal Volume 500 PEEP 5 Sodium 146 (132-148) mmol/L Potassium 3.8 (3.6-5.2) mmol/L Chloride 117 H (98-107) mmol/L Carbon Dioxide 13 L (22-30) mmol/L Anion Gap 20 (10-20) BUN 47 H (7-17) mg/dL Creatinine 3.0 H (0.7-1.2) MG/DL Est GFR ( Amer) 19 Est GFR (Non-Af Amer) 16 Random Glucose 82 (65-105) mg/dL Calcium 7.8 L (8.6-10.4) mg/dl Phosphorus 2.4 L (2.5-4.5) mg/dL Magnesium 1.9 (1.6-2.3) mg/dL Total Bilirubin 4.2 H (0.2-1.3) mg/dL AST 523 H D (14-36) U/L ALT 313 H (9-52) U/L Alkaline Phosphatase 108 (38-126) U/L Total Protein 5.4 L (6.3-8.3) g/dL Albumin 2.0 L (3.5-5.0) g/dL Globulin 3.4 (2.2-3.9) gm/dL Albumin/Globulin Ratio 0.6 L (1.0-2.1) Smooth Muscle Ab Titer Anti-Smooth Muscle Ab (Negative) Heparin-induced Plt Ab (Negative) 12/28/16 12/27/16 Range/Units 16:19 11:47 WBC (4.8-10.8) K/uL RBC (3.80-5.20) Mil/uL Hgb (11.0-16.0) g/dL Hct (34.0-47.0) % MCV (81.0-99.0) fL MCH (27.0-31.0) pg MCHC (33.0-37.0) g/dL RDW (11.5-14.5) % Plt Count (130-400) K/uL MPV (7.2-11.7) fL Neut % (Auto) (50.0-75.0) % Lymph % (Auto) (20.0-40.0) % Moore % (Auto) (0.0-10.0) % Eos % (Auto) (0.0-4.0) % Baso % (Auto) (0.0-2.0) % Neut # (1.8-7.0) K/uL Lymph # (1.0-4.3) K/uL Moore # (0.0-0.8) K/uL Eos # (0.0-0.7) K/uL Baso # (0.0-0.2) K/uL Neutrophils % (Manual) (50-75) % Band Neutrophils % (0-2) % Lymphocytes % (Manual) (20-40) % Monocytes % (Manual) (0-10) % Eosinophils % (Manual) (0-4) % Toxic Granulation Platelet Estimate (NORMAL) Large Platelets Poikilocytosis (manual Anisocytosis (manual) Macrocytosis (manual) Target Cells Ovalocytes Schistocytes PT (9.7-12.2) SECONDS INR Puncture Site pCO2 (35-45) mm/Hg pO2 (80-100) mm/Hg HCO3 (21-28) mmol/L ABG pH (7.35-7.45) ABG Total CO2 (22-28) mmol/L ABG O2 Saturation (95-98) % ABG Base Excess (-2.0-3.0) mmol/L ABG Hemoglobin (11.7-17.4) g/dL ABG Carboxyhemoglobin (0.5-1.5) % POC ABG HHb (Measured) (0.0-5.0) % ABG Methemoglobin (0.0-3.0) % Billy Test A-a O2 Difference mm/Hg Respiratory Index Hgb O2 Saturation (95.0-98.0) % Mechanical Rate FiO2 % Tidal Volume PEEP Sodium (132-148) mmol/L Potassium (3.6-5.2) mmol/L Chloride (98-107) mmol/L Carbon Dioxide (22-30) mmol/L Anion Gap (10-20) BUN (7-17) mg/dL Creatinine (0.7-1.2) MG/DL Est GFR ( Amer) Est GFR (Non-Af Amer) Random Glucose (65-105) mg/dL Calcium (8.6-10.4) mg/dl Phosphorus (2.5-4.5) mg/dL Magnesium (1.6-2.3) mg/dL Total Bilirubin (0.2-1.3) mg/dL AST (14-36) U/L ALT (9-52) U/L Alkaline Phosphatase (38-126) U/L Total Protein (6.3-8.3) g/dL Albumin (3.5-5.0) g/dL Globulin (2.2-3.9) gm/dL Albumin/Globulin Ratio (1.0-2.1) Smooth Muscle Ab Titer TEST NOT PERFORMED Anti-Smooth Muscle Ab Negative (Negative) Heparin-induced Plt Ab Negative (Negative) Laboratory Results - last 24 hr 12/27/16 12/28/16 12/30/16 11:47 16:19 05:25 WBC RBC Hgb Hct MCV MCH MCHC RDW Plt Count MPV Neut % (Auto) Lymph % (Auto) Moore % (Auto) Eos % (Auto) Baso % (Auto) Neut # Lymph # Moore # Eos # Baso # Neutrophils % (Manual) Band Neutrophils % Lymphocytes % (Manual) Monocytes % (Manual) Eosinophils % (Manual) Toxic Granulation Platelet Estimate Large Platelets Poikilocytosis (manual Anisocytosis (manual) Macrocytosis (manual) Target Cells Ovalocytes Schistocytes PT INR Puncture Site Rb pCO2 22 L pO2 122 H HCO3 13.6 L ABG pH 7.29 L ABG Total CO2 11.3 L ABG O2 Saturation 100.3 H ABG Base Excess -14.5 L ABG Hemoglobin 8.3 L ABG Carboxyhemoglobin 2.4 H POC ABG HHb (Measured) -0.3 L ABG Methemoglobin 0.7 Billy Test Na A-a O2 Difference 136.0 Respiratory Index 1.1 Hgb O2 Saturation 97.2 Mechanical Rate 16 FiO2 40.0 Tidal Volume 500 PEEP 5 Sodium Potassium Chloride Carbon Dioxide Anion Gap BUN Creatinine Est GFR ( Amer) Est GFR (Non-Af Amer) Random Glucose Calcium Phosphorus Magnesium Total Bilirubin AST ALT Alkaline Phosphatase Total Protein Albumin Globulin Albumin/Globulin Ratio Smooth Muscle Ab Titer TEST NOT PERFORMED Anti-Smooth Muscle Ab Negative Heparin-induced Plt Ab Negative 12/30/16 12/30/16 06:41 10:43 WBC 11.9 H RBC 2.51 L Hgb 8.5 L Hct 26.3 L MCV 104.4 H D MCH 33.9 H MCHC 32.4 L RDW 23.1 H Plt Count 91 L MPV 11.3 Neut % (Auto) 87.0 H Lymph % (Auto) 4.7 L Moore % (Auto) 7.2 Eos % (Auto) 0.9 Baso % (Auto) 0.2 Neut # 10.3 H Lymph # 0.6 L Moore # 0.9 H Eos # 0.1 Baso # 0.0 Neutrophils % (Manual) 81 H Band Neutrophils % 6 H Lymphocytes % (Manual) 5 L Monocytes % (Manual) 7 Eosinophils % (Manual) 1 Toxic Granulation Present Platelet Estimate Decreased L Large Platelets Present Poikilocytosis (manual Slight Anisocytosis (manual) Moderate Macrocytosis (manual) Moderate Target Cells Moderate Ovalocytes Slight Schistocytes Slight PT 17.7 H INR 1.6 Puncture Site pCO2 pO2 HCO3 ABG pH ABG Total CO2 ABG O2 Saturation ABG Base Excess ABG Hemoglobin ABG Carboxyhemoglobin POC ABG HHb (Measured) ABG Methemoglobin Billy Test A-a O2 Difference Respiratory Index Hgb O2 Saturation Mechanical Rate FiO2 Tidal Volume PEEP Sodium 146 Potassium 3.8 Chloride 117 H Carbon Dioxide 13 L Anion Gap 20 BUN 47 H Creatinine 3.0 H Est GFR ( Amer) 19 Est GFR (Non-Af Amer) 16 Random Glucose 82 Calcium 7.8 L Phosphorus 2.4 L Magnesium 1.9 Total Bilirubin 4.2 H AST 523 H D ALT 313 H Alkaline Phosphatase 108 Total Protein 5.4 L Albumin 2.0 L Globulin 3.4 Albumin/Globulin Ratio 0.6 L Smooth Muscle Ab Titer Anti-Smooth Muscle Ab Heparin-induced Plt Ab Attending/Attestation - Attestation I have personally seen and examined this patient.: Yes I have fully participated in the care of the patient.: Yes I have reviewed all pertinent clinical information: Yes Notes (Text): 12/30/16 18:22 Patient seen and examined in the intensive care unit. Case discussed with STAFF and the morning rounds. Remains intubated on ventilatory support Continue antibiotics for right upper lung infiltrate AFB smear negative Consider DC respiratory isolation Worsening renal function noted, nephrology evaluation Gentle hydration On milrinone drip
--- NOTE | 2016-12-30 19:26 | CP.PCM.PN ---
Subjective - Date & Time of Evaluation Date of Evaluation: 12/30/16 Time of Evaluation: 19:25 - Subjective Subjective: non verbal intubated on vent Objective - Vital Signs/Intake and Output Vital Signs (last 24 hours): Temp Pulse Resp BP Pulse Ox 98.3 F 109 H 22 81/40 L 100 12/30/16 12:00 12/30/16 18:57 12/30/16 18:57 12/30/16 18:57 12/30/16 18:57 Intake and Output: 12/30/16 12/31/16 18:59 06:59 Intake Total 626.6 Output Total 240 Balance 386.6 - Medications Medications: Current Medications Diphenoxylate HCl/Atropine (Lomotil 0.025-2.5 Mg Tablet) 1 tab PO Q1H PRN PRN Reason: Diarrhea Stop: 12/31/16 22:38 Last Admin: 12/30/16 10:33 Dose: 1 tab Emollient Ointment (Vaseline Oint) 5 gm TOP QID PRN Last Admin: 12/29/16 10:10 Dose: 5 gm Hydroxychloroquine Sulfate (Plaquenil) 200 mg PO BID [facility] Last Admin: 12/30/16 18:34 Dose: 200 mg Azithromycin 500 mg/ Sodium (Chloride) 250 mls @ 250 mls/hr IVPB DAILY [facility] Last Admin: 12/30/16 10:18 Dose: 250 mls/hr Propofol (Diprivan) 100 mls @ 1.71 mls/hr IV .Q24H PRN; Protocol; 5 MCG/KG/MIN PRN Reason: TITRATE PER MD ORDER Last Admin: 12/30/16 11:30 Dose: 3.42 mls/hr Dopamine HCl/Dextrose (Dopamine 400mg/250ml D5w) 250 mls @ 10.606 mls/hr IV .[id number] PRN; Protocol; 5 MCG/KG/MIN PRN Reason: TITRATE PER MD ORDER Last Titration: 12/28/16 07:00 Dose: 0 mcg/kg/min Milrinone Lactate/Dextrose 20 (mg/ Dextrose) 100 mls @ 8.4 mls/hr IV .[id number] [facility] PRN Reason: 0.5 MCG/KG/MIN Last Admin: 12/30/16 15:31 Dose: 8.4 mls/hr Cefepime HCl (Maxipime Iv 2 Gm Premix) 100 mls @ 100 mls/hr IVPB Q24H [facility] Stop: 01/03/17 10:01 Last Admin: 12/30/16 10:18 Dose: 100 mls/hr Sodium Chloride (Sodium Chloride 0.9%) 1,000 mls @ 75 mls/hr IV .[id number] [facility] Last Admin: 12/30/16 10:17 Dose: 75 mls/hr Pantoprazole Sodium (Protonix Inj) 40 mg IVP DAILY [facility] Last Admin: 12/30/16 10:17 Dose: 40 mg - Labs Labs: 12/30/16 06:41 12/30/16 06:41 PT 17.7 SECONDS (9.7-12.2) H 12/30/16 10:43 INR 1.6 12/30/16 10:43 APTT 34 SECONDS (21-34) D 12/25/16 06:11 - Constitutional Appears: Cachectic, Chronically Ill - Respiratory Exam Additional comments: on vent coarse bs - Cardiovascular Exam Cardiovascular Exam: +S1. absent: Murmur - GI/Abdominal Exam GI & Abdominal Exam: Soft - Neurological Exam Neurological Exam: absent: Alert, Awake, Oriented x3 Assessment and Plan - Assessment and Plan (Free Text) Assessment: - cont ICU management intubated on vent on milrnone unable to wean. Per ICU Pt is 61F with extensive medical history pertinent for lupus, heart failure with AICD, stroke with left-sided deficit, and HTN admitted to the ICU s/p agonal breathing requiring intubation on medical floor. Patient being treated for sepsis likely secondary to aspiration pneumonia. Consideration were made for cavitary lesions which prompted a mycobacterium TB workup, however, likely pneumonia, given negative AFB smear isolation precautions discontinued. Plan: Neuro: Sedated on Propofol (previously Versed) History of CVA with residual weakness Head CT: No evidence of acute intracranial hemorrhage, acute territorial infarct , mass effect or midline shift. Moderate-size encephalomalacia at the left temporal parietal lobe suggestive of chronic left MCA territory infarct. Moderate atrophy and white matter changes. CVS: Currently normotensive, BP 107/60 CHF with EF noted to be 26% on previous echocardiogram Repeat echo (12/22/16): LVEF <20%, LV is mildly dilated, LA is mildly dilated. Mild AR, moderate-severe MR, Moderate-severe pulmonary HTN. 12/28/[address] - Left-sided AICD. Cardiomegaly. Coronary artery calcifications. 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 Rubio as outpatient Diet Clerk Dr. Montelongo consulted - help appreciated On Dopamine drip TLC in RIJ YOUSUF panel negative. Troponins 0.0240>0.0670>0.0830 Pulm: Intubated on AC/PRVC, Observed RR 16 Vent settings: 500/16/5 FiO2 40% 12/30/16 ABG: pCO2 22, pO2, HCO3 13.6, pH 7.29 12/28/16 ABG: pCO2 25, pO2 115, HCO3 17.3, pH 7.36 12/25/16 ABG: pCO2 24, pO2 191, HCO3 20.3, pH 7.44, Lactate 1.4 12/24/16 ABG: pCO2 26, pO2 221, HCO3 17.9, pH 7.36, lactate 2.3 Saturating 98% 12/28/[address] - Extensive right upper lobe consolidation/pneumonia. Bibasilar atelectasis. Small right pleural effusion. Recommend follow-up to resolution. 12/30/16 CXR: Persistent hazy opacity in the right upper lobe. No significant interval change. Improved. 12/28/16 CXR: Lines and tubes in stable position. Left-sided pacemaker. Persistent ill-defined consolidative changes seen within the right upper to mid lung zone. No significant interval change. 12/25/16 CXR: Endotracheal tube extending into the midthoracic trachea. NG tube extending into stomach. Right central venous catheter extending in to the cavoatrial junction. Dense consolidative opacification of the right upper and midlung zones. Milder patchy opacity at the lung base. Diffuse increased interstitial lung markings. 12/24/16 CXR: Worsening RUL consolidation, cardiomegaly, left-sided AICD CT Abdomen and Pelvis w/o contrast (12/22/16): Small to moderate R pleural effusion. Possible aspiration pneumonia AFB smear negative, culture pending D/c isolation Antibiotics as below GI: Still has diarrhea, stool sample for C.diff is negative OG tube, receiving feeds Hepatitis panel negative, AMA negative (r/o PBC), Ceruloplasmin negative, LKM ab negative, Anti-SM - pending. GI will consider EUS if workup is negative and direct bili remains elevated. GI consulted - help appreciated Per GI, repeat U/S to assess for hepatorenal syndrome, cardiorenal syndrome and SBP. Change to PPI IV daily Pancreatic protocol CT (12/25/16) - Fatty infiltration of the liver, heterogeneous. Innumerable small enhancing nodules on portal venous phase images of the liver. Uncertain significance. Consider metastatic disease. Unlikely hepatocellular neoplasm. No evidence of pancreatitis or pancreatic mass. No biliary obstruction. Mild ascites. Small right and trace left pleural effusion with lower lobe compressive atelectasis. Permanent pacemaker. Nasogastric tube. Brunner catheter. T.bili of 9.5, Direct bili of 7.2, GGT 126, AST 126, ALT 79 on admission T. bili 6.6, AST 163, ALT 105 (12/24/16) T. bili 7.6, AST 201, ALT 109 (12/25/16) T. bili 5.3, AST 507, ALT 221, Alk phos 132 (12/28/16) T. bili 4.2, AST 523, ALT 313, Alk phos 108 (12/30/16) Continue to trend T.bili and LFTs - stabilizing - likely 2/[address] Abdomen and Pelvis w/o contrast (12/22/16): Small to moderate right pleural effusion. Trace ascites. Nonspecific presacral edema. Mild generalized anasarca. Mild hepatomegaly with fatty infiltration of the liver. No evidence of biliary obstruction. No evidence of cholecystitis. Mild nonspecific presacral edema, possibly related generalized anasarca. RUQ US (12/23/16): Right renal cysts. Incidental note is made of small right pleural effusion. Echogenic liver may be in setting of hepatic parenchymal disease or fatty infiltration. Small perihepatic ascites. Small fluid is noted by the gallbladder fossa. Gallbladder wall thickening/pericholecystic edema without evidence of gallstones. Negative sonographic Hutchinson's sign as assessed by the [place]. No portal vein thrombosis. Heme: Hgb 8.5 Monitor Hct 26.3 Plt 91 Thrombocytopenia slowly improving Monitor Endo: T3 and T4 are low on admission with normal TSH TSH 1.34, T3 uptake >65.o, Free T4 0.87 Maintain euglycemia Rheumatology: History of lupus On plaquenil 200mg BID Folic acid 1mg PO daily IgG 1775.0 IgA 510.1 IgM 66.[address] Reynaga as outpatient Nephro: BUN/Cr 47/3.0 UTI: 12/26 culture positive for E.Coli, Abx as below 12/28/[address] - Limited visualization of the upper abdomen demonstrates numerous bilateral renal lesions, possibly cysts. Hyperdense 11 mm left upper pole exophytic lesion, indeterminate. Decreased urine output, I/o 2545/390 Nephro (Dr. Wong) consulted -help appreciated Increased IVF Monitor : monitor urine output Brunner in Maintenance fluids 75 cc/hr ID: Leukocytosis (WBC: 11.9) Possible aspiration pneumonia Hepatitis panel negative UTI, urine cx positive for E.coli Started Cefepime 2gm IVPB Q8H (12/24/16) On Azithromycin 500 mg IVPB daily, Cefepime IV 2GM daily Stool for C.diff - negative AFB smear negative Mycobacterial culture - pending D/c isolation Prophylaxis: Heparin 5000U SC Q8H Protonix 40 mg IV daily
[2016-12-31] MEDS: Sodium Chloride 0.9% 1,000 ML IV SCH (01:22)
[2016-12-31] MEDS: Petrolatum Oint Foilpak (5 gm) TOP PRN (01:23)
[2016-12-31] MEDS: Milrinone 20 MG in Dextrose 5% In Water 80 ML IV SCH ×3 (05:00→19:57)
[2016-12-31 05:48] LABS: ABG ALLEN TEST POS; ABG MECHANICAL RATE 16; ARTERIAL BLOOD HGB O2 SAT 96.1 % (95.0-98.0); ATERIAL BLOOD GAS PEEP 5; CARBOXYHEMOGLOBIN 2.4 % (0.5-1.5); DRAW SITE LB; HHB 0.4 % (0.0-5.0); METHEMOGLOBIN 1.2 % (0.0-3.0)
[2016-12-31 06:45] LABS: BASO % 0.4 % (0.0-2.0); EOS % 0.3 % (0.0-4.0); HEMATOCRIT 22.8 % (34.0-47.0); LYMPH # 0.6 K/uL (1.0-4.3); MEAN CELL VOLUME 104.5 fL (81.0-99.0); MEAN CORPUSCULAR HEMOGLOBIN 34.5 pg (27.0-31.0); MEAN PLATELET VOLUME 11.2 fL (7.2-11.7); MONO # 0.9 K/uL (0.0-0.8); MONO % 7.4 % (0.0-10.0); NRBC % 0.1 % (0.0-2.0); PLATELET COUNT 88 K/uL (130-400); RED CELL DISTRIBUTION WIDTH 22.8 % (11.5-14.5); WHITE BLOOD COUNT 12.5 K/uL (4.8-10.8)
[2016-12-31 06:58] LABS: POTASSIUM 3.9 mmol/L (3.6-5.2)
[2016-12-31 07:01] LABS: ALB/GLOB RATIO 0.5 (1.0-2.1); BILIRUBIN,TOTAL 4.2 mg/dL (0.2-1.3); PHOSPHOROUS 3.1 mg/dL (2.5-4.5); TOTAL PROTEIN 5.3 g/dL (6.3-8.3)
[2016-12-31 07:02] LABS: CALCIUM 7.8 mg/dl (8.6-10.4); MAGNESIUM 1.8 mg/dL (1.6-2.3)
--- NOTE | 2016-12-31 08:51 | RAD ---
HISTORY: intubated COMPARISON: 12/30/2016 FINDINGS: LUNGS: No change in right upper lobe infiltrate. There is a new patchy infiltrate in the lingular segment of the left upper lobe. PLEURA: No significant pleural effusion identified, no pneumothorax apparent. CARDIOVASCULAR: Normal. OSSEOUS STRUCTURES: No significant abnormalities. VISUALIZED UPPER ABDOMEN: Normal. OTHER FINDINGS: Endotracheal and nasogastric tubes in satisfactory position IMPRESSION: No change in right upper lobe infiltrate. There is a new patchy infiltrate in the lingular segment of the left upper lobe.
--- NOTE | 2016-12-31 08:59 | CP.PCM.PN ---
Subjective - Date & Time of Evaluation Date of Evaluation: 12/31/16 Time of Evaluation: 07:40 - Subjective Subjective: Cardiology progress note for Dr Montelongo. Patient appears less responsive this AM. Patient is still intubated and sedated on propofol. Patient appears to be hyperventilating likely to compensate from metabolic acidosis. Patient is also on milrinone drip. Sinus tachycardia with occasional PVCs on the tele monitor. Objective - Vital Signs/Intake and Output Vital Signs (last 24 hours): Temp Pulse Resp BP Pulse Ox 98.2 F 114 H 37 H 105/49 L 100 12/30/16 20:00 12/31/16 07:00 12/31/16 07:00 12/31/16 06:58 12/31/16 07:00 Intake and Output: 12/31/16 12/31/16 06:59 18:59 Intake Total 1281.6 106.8 Output Total 230 0 Balance 1051.6 106.8 - Medications Medications: Current Medications Diphenoxylate HCl/Atropine (Lomotil 0.025-2.5 Mg Tablet) 1 tab PO Q1H PRN PRN Reason: Diarrhea Stop: 12/31/16 22:38 Last Admin: 12/30/16 10:33 Dose: 1 tab Emollient Ointment (Vaseline Oint) 5 gm TOP QID PRN Last Admin: 12/31/16 01:23 Dose: 5 gm Hydroxychloroquine Sulfate (Plaquenil) 200 mg PO BID [facility] Last Admin: 12/30/16 18:34 Dose: 200 mg Azithromycin 500 mg/ Sodium (Chloride) 250 mls @ 250 mls/hr IVPB DAILY [facility] Last Admin: 12/30/16 10:18 Dose: 250 mls/hr Propofol (Diprivan) 100 mls @ 1.71 mls/hr IV .Q24H PRN; Protocol; 5 MCG/KG/MIN PRN Reason: TITRATE PER MD ORDER Last Admin: 12/31/16 05:24 Dose: 3.42 mls/hr Dopamine HCl/Dextrose (Dopamine 400mg/250ml D5w) 250 mls @ 10.606 mls/hr IV .[id number] PRN; Protocol; 5 MCG/KG/MIN PRN Reason: TITRATE PER MD ORDER Last Titration: 12/28/16 07:00 Dose: 0 mcg/kg/min Milrinone Lactate/Dextrose 20 (mg/ Dextrose) 100 mls @ 8.4 mls/hr IV .[id number] [facility] PRN Reason: 0.5 MCG/KG/MIN Last Admin: 12/31/16 05:00 Dose: 8.4 mls/hr Cefepime HCl (Maxipime Iv 2 Gm Premix) 100 mls @ 100 mls/hr IVPB Q24H [facility] Stop: 01/03/17 10:01 Last Admin: 12/30/16 10:18 Dose: 100 mls/hr Sodium Chloride (Sodium Chloride 0.9%) 1,000 mls @ 75 mls/hr IV .[id number] [facility] Last Admin: 12/31/16 01:22 Dose: 75 mls/hr Pantoprazole Sodium (Protonix Inj) 40 mg IVP DAILY [facility] Last Admin: 12/30/16 10:17 Dose: 40 mg - Labs Labs: 12/31/16 06:34 12/31/16 06:34 PT 17.7 SECONDS (9.7-12.2) H 12/30/16 10:43 INR 1.6 12/30/16 10:43 APTT 34 SECONDS (21-34) D 12/25/16 06:11 - Constitutional Appears: Cachectic, Chronically Ill, Other (in mild distress ) - Head Exam Head Exam: ATRAUMATIC, NORMAL INSPECTION, NORMOCEPHALIC - Eye Exam Eye Exam: Normal appearance - ENT Exam ENT Exam: Mucous Membranes Moist Additional comments: ETT and OGT in place. - Neck Exam Neck Exam: Normal Inspection - Respiratory Exam Respiratory Exam: Decreased Breath Sounds (At the bases. ), Prolonged Expiratory Phase, Respiratory Distress (mild, intubated. ). absent: Rales, Rhonchi, Wheezes, Stridor - Cardiovascular Exam Cardiovascular Exam: Tachycardia, REGULAR RHYTHM, +S1, +S2. absent: JVD - GI/Abdominal Exam GI & Abdominal Exam: Distended (mild), Soft, Normal Bowel Sounds. absent: Guarding, Tenderness - Extremities Exam Extremities Exam: absent: Pedal Edema - Neurological Exam Additional comments: Intubated and sedated, withdraws to painful stimuli. - Skin Skin Exam: Diaphoretic, Dry, Warm Assessment and Plan - Assessment and Plan (Free Text) Assessment: 61 y/o with PMH of Lupus, dilated cardiomyopathy s/p ICD, CVA with left sided residue, htn admitted with: 1) Hypoxemic respiratory failure 2nd to HAP/CHF exacerbation LVEF of 20% with mod-severe pulm htn on echo- s/p ICD 2) Septic shock-off of levophed, now on milrinone for hypotension. 3) Ecoli UTI 4) Transaminitis 5) VERONICA 6) Hypokalemia/hypophosphatemia- resolved. 7) Thrombocytopenia- r/o HIT 8) macrocytic Anemia 9) Metabolic acidosis with respiratory alkalosis. Plan: - ICD interrogated, Normal except the ICD has low battery life and will need to be replaced once patient is medically stable. - Patient is on cefepime anf z-pach for braodspectrum coverage for pneumonia and ecoli uti. - Patient is on milrinone drip for Hypotension. - Patient is on plaquenil for lupus. - On protonix for gi prophylaxis. - SCD for dvt prophylaxis. -Gi following, patient is in ICU, still intubated and sedated. Patient seen, examined, will discuss with Dr Montelongo.
--- NOTE | 2016-12-31 09:11 | CP.PCM.CON ---
History of Present Illness - History of Present Illness History of Present Illness: 61 year old female with PMHx of lupus, pacemaker, stroke with left sided deficit , HTN presents to the emergency room with shortness of breath. Patient was brought in by a friend, who is not at bedside at this time. History as per patient, who is a poor historian. Admits to SOB and dry cough for unknown duration of time. She admits to "having trouble" with her stomach for the past 3 -4 months. She states she has been having a lot of nausea and vomiting after she eats. Denies fevers, chills. She also has scratches on her arms from her cat that lives in her apartment with her. She has 3 children who she is estranged from. She has no chest pain or palpitations today. Admits to abdominal pain from time to time. She also reports pain when she urinates. Sent to ICU 12/26 with progressive respiratory distress, needing intubation, ventilation. Now with progressive renal failure, oliguria, metabolic acidosis, worsening respiations despite ventilation. 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 SOON DUE TO OLIGURIA, METABOLIC ACIDOSIS, WORSENING FLUID ACCUMULATION WILL DISCUSS WITH OTHERS Past Patient History - Past Medical History & Family History Past Medical History?: Yes - Past Social History Smoking Status: Never Smoked Alcohol: None Drugs: Denies - CARDIAC Hx Pacemaker: Yes - NEUROLOGICAL HX Cerebrovascular Accident: Yes (RT side deficit) - MUSCULOSKELETAL/RHEUMATOLOGICAL Hx Falls: No - PSYCHIATRIC Hx Substance Use: No Meds Allergies/Adverse Reactions: Allergies Allergy/AdvReac Type Severity Reaction Status Date / Time No Known Allergies Allergy Verified 12/22/16 13:20 - Medications Medications: Current Medications Diphenoxylate HCl/Atropine (Lomotil 0.025-2.5 Mg Tablet) 1 tab PO Q1H PRN PRN Reason: Diarrhea Stop: 12/31/16 22:38 Last Admin: 12/30/16 10:33 Dose: 1 tab Emollient Ointment (Vaseline Oint) 5 gm TOP QID PRN Last Admin: 12/31/16 01:23 Dose: 5 gm Hydroxychloroquine Sulfate (Plaquenil) 200 mg PO BID [facility] Last Admin: 12/30/16 18:34 Dose: 200 mg Azithromycin 500 mg/ Sodium (Chloride) 250 mls @ 250 mls/hr IVPB DAILY [facility] Last Admin: 12/30/16 10:18 Dose: 250 mls/hr Propofol (Diprivan) 100 mls @ 1.71 mls/hr IV .Q24H PRN; Protocol; 5 MCG/KG/MIN PRN Reason: TITRATE PER MD ORDER Last Admin: 12/31/16 05:24 Dose: 3.42 mls/hr Dopamine HCl/Dextrose (Dopamine 400mg/250ml D5w) 250 mls @ 10.606 mls/hr IV .[id number] PRN; Protocol; 5 MCG/KG/MIN PRN Reason: TITRATE PER MD ORDER Last Titration: 12/28/16 07:00 Dose: 0 mcg/kg/min Milrinone Lactate/Dextrose 20 (mg/ Dextrose) 100 mls @ 8.4 mls/hr IV .[id number] [facility] PRN Reason: 0.5 MCG/KG/MIN Last Admin: 12/31/16 05:00 Dose: 8.4 mls/hr Cefepime HCl (Maxipime Iv 2 Gm Premix) 100 mls @ 100 mls/hr IVPB Q24H [facility] Stop: 01/03/17 10:01 Last Admin: 12/30/16 10:18 Dose: 100 mls/hr Sodium Chloride (Sodium Chloride 0.9%) 1,000 mls @ 75 mls/hr IV .[id number] [facility] Last Admin: 12/31/16 01:22 Dose: 75 mls/hr Pantoprazole Sodium (Protonix Inj) 40 mg IVP DAILY [facility] Last Admin: 12/30/16 10:17 Dose: 40 mg Results - Vital Signs Recent Vital Signs: Last Vital Signs Temp 98.2 F 12/30/16 20:00 Pulse 114 H 12/31/16 07:00 Resp 37 H 12/31/16 07:00 BP 105/49 L 12/31/16 06:58 Pulse Ox 100 12/31/16 07:00 - Labs Result Diagrams: 12/31/16 06:34 12/31/16 06:34 Labs: Laboratory Results - last 24 hr 12/27/16 12/28/16 12/30/16 11:47 16:19 10:43 WBC RBC Hgb Hct MCV MCH MCHC RDW Plt Count MPV Neut % (Auto) Lymph % (Auto) Wilkes % (Auto) Eos % (Auto) Baso % (Auto) Neut # Lymph # Wilkes # Eos # Baso # PT 17.7 H INR 1.6 Puncture Site pCO2 pO2 HCO3 ABG pH ABG Total CO2 ABG O2 Saturation ABG Base Excess ABG Hemoglobin ABG Carboxyhemoglobin POC ABG HHb (Measured) ABG Methemoglobin Billy Test A-a O2 Difference Respiratory Index Hgb O2 Saturation Mechanical Rate FiO2 Tidal Volume PEEP Sodium Potassium Chloride Carbon Dioxide Anion Gap BUN Creatinine Est GFR ( Amer) Est GFR (Non-Af Amer) Random Glucose Calcium Phosphorus Magnesium Total Bilirubin AST ALT Alkaline Phosphatase Total Protein Albumin Globulin Albumin/Globulin Ratio Stool Occult Blood Smooth Muscle Ab Titer TEST NOT PERFORMED Anti-Smooth Muscle Ab Negative Heparin-induced Plt Ab Negative 12/31/16 12/31/16 12/31/16 05:16 06:34 08:43 WBC 12.5 H RBC 2.18 L Hgb 7.5 L Hct 22.8 L MCV 104.5 H MCH 34.5 H MCHC 33.0 RDW 22.8 H Plt Count 88 L MPV 11.2 Neut % (Auto) 86.9 H Lymph % (Auto) 5.0 L Wilkes % (Auto) 7.4 Eos % (Auto) 0.3 Baso % (Auto) 0.4 Neut # 10.9 H Lymph # 0.6 L Wilkes # 0.9 H Eos # 0.0 Baso # 0.0 PT INR Puncture Site Lb pCO2 20 L pO2 101 H HCO3 13.8 L ABG pH 7.32 L ABG Total CO2 10.9 L ABG O2 Saturation 99.6 H ABG Base Excess -14.3 L ABG Hemoglobin 7.8 L ABG Carboxyhemoglobin 2.4 H POC ABG HHb (Measured) 0.4 ABG Methemoglobin 1.2 Billy Test Pos A-a O2 Difference 159.0 Respiratory Index 1.6 Hgb O2 Saturation 96.1 Mechanical Rate 16 FiO2 40.0 Tidal Volume 500 PEEP 5 Sodium 146 Potassium 3.9 Chloride 117 H Carbon Dioxide 11 L* Anion Gap 22 H BUN 49 H Creatinine 3.6 H Est GFR ( Amer) 16 Est GFR (Non-Af Amer) 13 Random Glucose 72 Calcium 7.8 L Phosphorus 3.1 Magnesium 1.8 Total Bilirubin 4.2 H AST 240 H D ALT 221 H D Alkaline Phosphatase 99 Total Protein 5.3 L Albumin 1.8 L Globulin 3.5 Albumin/Globulin Ratio 0.5 L Stool Occult Blood Positive H Smooth Muscle Ab Titer Anti-Smooth Muscle Ab Heparin-induced Plt Ab
[2016-12-31] MEDS: DOPamine 400mg/250ml D5W 250 ML IV PRN (10:25)
[2016-12-31 10:31] LABS: EOSINOPHIL 1 % (0-4); NEUTROPHIL 77 % (50-75); TOTAL CELLS COUNTED 100
[2016-12-31 10:33] LABS: LARGE PLATELETS PRESENT
[2016-12-31] MEDS ORDERED: Sodium Bicarbonate (8.4%) 50 Meq Syringe IVP ONE (10:38)
[2016-12-31] MEDS: Atropine-Diphenoxylate 0.025-2.5 mg Tab PO PRN (10:41)
[2016-12-31] MEDS: Cefepime IV 2 gm in Dextrose 100 ML IVPB SCH (10:44)
[2016-12-31] MEDS: Azithromycin 500 MG in Sodium Chloride 0.9% 250 ML IVPB SCH (10:45)
--- NOTE | 2016-12-31 10:49 | CON ---
DATE: 12/31/2016 HISTORY OF PRESENT ILLNESS: The patient is a 61-year-old woman with past medical hi story of lupus, status post cerebrovascular accident. She presents on 12/22/[address] [facility] th shortness of breath, was diagnosed with right upper lobe pneumonia and was being treated for such when she presented with severe respiratory distress on 12/26. She was sent to the ICU, has been intub ated for several days. Now she has decreasing urine output and progressive renal failure and a renal consult was requested. PAST MEDICAL HISTORY: Systemic lupus, not on any immunosuppressors, history of cerebrovascular accid ent with left-sided paresis, hypertension and cardiomyopathy. PAST SURGICAL HISTORY: The only surgical history is that of a permanent pacemaker. MEDICATIONS: Outpatient medications include folic acid, gabapentin, omeprazole, tramadol, Zoloft, aml odipine. Now medications, because of the hypertension, include Dopamine, IV normal saline, cefepime, Plaquenil. She is on sedation, Protonix and Zithromax IV. SOCIAL HISTORY: Negative for smoking, alcohol abuse or illicit drug use. FAMILY HISTORY: Noncontributory and mostly unknown. REVIEW OF SYSTEMS: Unobtainable. The patient is sedated and intubated in the ICU. PHYSICAL EXAMINATION: GENERAL: She is intubated, sedated, black woman on a ventilator, with respiratory distress. She is anicteric. VITAL SIGNS: Blood pressure at the present time is 104/49, pulse is 114-120 and regular, pulse ox 10 0% ventilator. HEENT: She is anicteric. NECK: No JVD. LUNGS: Lung dejesus show rhonchi anteriorly. HEART: Sinus tachycardia. ABDOMEN: Soft and not distended. No masses or organomegaly. EXTREMITIES: No peripheral edema. Again, she is sedated. BLOOD WORK: Reveals that she came in with normal renal function, on 12/22 the creatinine was 0.8. On 12/27, the creatinine started to rise, it was 1.5 and now it is 3.6. She has severe metabolic acidosi s with a pH of 7.32, pCO2 of 20. The electrolytes show sodium 146, potassium 3.9, chloride 117, CO2 is 11, calcium 7.8, phosphorus 3.1, total bilirubin is elevated at 4.2. LFTs are elevated with AST o f 240, hemoglobin of 7.5, white count 12.5. A chest x-ray showed a right upper lobe infiltrate, mild congestive changes. IMPRESSION: The patient has acute kidney injury, acute pneumonia, systemic lupus. Acute kidney inju ry is likely due to ischemic acute tubular necrosis from the pneumonia associated with severe metabol ic acidosis, likely mild to moderate fluid overload. She has no systemic lupus, status post cerebrov ascular accident in the past, hypertension, cardiomyopathy history. RECOMMENDATIONS: Change IV fluids to bicarbonate drip due to the metabolic acidosis, obtain some uri ne studies, obtain urine electrolytes, evaluate for proteinuria. Because of the severe nature of the patient, now she has become more oliguric, she probably will need renal replacement therapy in the n ear future. We will discuss with ICU team and try to get consent for dialysis. Pressure seems to be appropriate and stable enough for dialysis. We will attempt to do so if . We will follow up. Marco Antonio Wong MD cc: [id number] TT: 12/31/2016 10:48:35 Confirmation # [id number] Dictation # [id number] celine
[2016-12-31 11:02] LABS: VENOUS BLOOD GAS BASE EXCESS -14.9 mmol/L (0.0-2.0); VENOUS BLOOD GAS PCO2 24 mmHg (40-60); VENOUS BLOOD PH 7.25 (7.32-7.43)
[2016-12-31] MEDS: Sodium Bicarbonate 8.4% 100 MEQ in Dextrose 5% In Water 900 ML IV SCH (11:07)
--- NOTE | 2016-12-31 11:09 | CP.PCM.PN ---
<RasheedEllen - Last Filed: 12/31/16 18:11> Subjective - Date & Time of Evaluation Date of Evaluation: 12/31/16 Time of Evaluation: 11:06 - Subjective Subjective: Gastroenterology Fellow/PGY4 Progress Note Patient intubated, requiring multiple vasopressors with refractory hypotension. Agonal breathing and note of worsening acidosis started on bicarbonate drip. Nursing reports loose dark stool. Unable to complete a 12- point review of systems, sedated on ventilator support. Objective - Vital Signs/Intake and Output Vital Signs (last 24 hours): Temp Pulse Resp BP Pulse Ox 98.2 F 114 H 27 H 81/44 L 98 12/30/16 20:00 12/31/16 07:00 12/31/16 10:25 12/31/16 10:25 12/31/16 10:25 Intake and Output: 12/31/16 12/31/16 06:59 18:59 Intake Total 1281.6 106.8 Output Total 230 0 Balance 1051.6 106.8 - Medications Medications: Current Medications Diphenoxylate HCl/Atropine (Lomotil 0.025-2.5 Mg Tablet) 1 tab PO Q1H PRN PRN Reason: Diarrhea Stop: 12/31/16 22:38 Last Admin: 12/31/16 10:41 Dose: 1 tab Emollient Ointment (Vaseline Oint) 5 gm TOP QID PRN Last Admin: 12/31/16 01:23 Dose: 5 gm Hydroxychloroquine Sulfate (Plaquenil) 200 mg PO BID [facility] Last Admin: 12/31/16 10:44 Dose: 200 mg Azithromycin 500 mg/ Sodium (Chloride) 250 mls @ 250 mls/hr IVPB DAILY [facility] Last Admin: 12/31/16 10:45 Dose: 250 mls/hr Propofol (Diprivan) 100 mls @ 1.71 mls/hr IV .Q24H PRN; Protocol; 5 MCG/KG/MIN PRN Reason: TITRATE PER MD ORDER Last Admin: 12/31/16 05:24 Dose: 3.42 mls/hr Milrinone Lactate/Dextrose 20 (mg/ Dextrose) 100 mls @ 8.4 mls/hr IV .[id number] [facility] PRN Reason: 0.5 MCG/KG/MIN Last Admin: 12/31/16 05:00 Dose: 8.4 mls/hr Cefepime HCl (Maxipime Iv 2 Gm Premix) 100 mls @ 100 mls/hr IVPB Q24H [facility] Stop: 01/03/17 10:01 Last Admin: 12/31/16 10:44 Dose: 100 mls/hr Sodium Chloride (Sodium Chloride 0.9%) 1,000 mls @ 75 mls/hr IV .[id number] [facility] Last Admin: 12/31/16 01:22 Dose: 75 mls/hr Norepinephrine Bitartrate 4 mg (/ Sodium Chloride) 254 mls @ 11.43 mls/hr IV .[id number] PRN; Protocol; 3 MCG/MIN PRN Reason: TITRATE PER MD ORDER Sodium Bicarbonate 100 meq/ (Dextrose) 1,000 mls @ 75 mls/hr IV .[id number] [facility] Lorazepam (Ativan) 1 mg IVP Q6H PRN PRN Reason: Anxiety Pantoprazole Sodium (Protonix Inj) 40 mg IVP DAILY [facility] Last Admin: 12/31/16 10:24 Dose: 40 mg - Labs Labs: 12/31/16 06:34 12/31/16 06:34 PT 17.7 SECONDS (9.7-12.2) H 12/30/16 10:43 INR 1.6 12/30/16 10:43 APTT 34 SECONDS (21-34) D 12/25/16 06:11 - Constitutional Appears: Toxic, Chronically Ill - Head Exam Head Exam: ATRAUMATIC, NORMOCEPHALIC - Eye Exam Eye Exam: PERRL. absent: EOMI Pupil Exam: PERRL. absent: Miosis, Mydriatic - ENT Exam ENT Exam: Mucous Membranes Dry, Normal Oropharynx - Neck Exam Neck Exam: Normal Inspection Additional comments: right IJ central line C/D/I - Respiratory Exam Respiratory Exam: Accessory Muscle Use, Rhonchi, Wheezes. absent: Clear to Ausculation Bilateral, Rales, NORMAL BREATHING PATTERN Additional comments: rhonchi right > left lung dejesus, agonal breathing - Cardiovascular Exam Cardiovascular Exam: Tachycardia, +S1, +S2. absent: Gallop, Rubs - GI/Abdominal Exam GI & Abdominal Exam: Soft, Normal Bowel Sounds. absent: Distended, Firm, Guarding, Rigid, Tenderness, Mass, Organomegaly, Rebound - Rectal Exam Rectal Exam: absent: Black Stool, Bloody Stool, Fecal Impaction Additional comments: dark green stool in rectal vault - Extremities Exam Additional comments: 1+ RLE pitting edema - Neurological Exam Additional comments: intubated, sedated, PERRL, equivocal B/L Babinski - Skin Skin Exam: Dry, Intact, Pallor, Warm Assessment and Plan - Assessment and Plan (Free Text) Assessment: 61 year old female with history of CVA, SLE, Hypertension, and CHF with AICD placement presenting with shortness of breath. GI consultation for elevated LFTs. CT Pancreas without pancreatic mass or biliary obstruction but showing innumerable small liver nodules up to 7mm in size. Active treatment of ventilator dependent hypoxic respiratory failure on 12/24 secondary to community acquired pneumonia complicated by volume overload secondary to CHF decompensation, EF 26% with severe pulmonary hypertension, worsening metabolic acidosis, renal failure, and septic shock secondary to CAP/Ecoli UTI. No prior EGD or colonoscopy. Ventilator dependent hypoxic respiratory failure 2/2 RUL CAP/ CHF decompensation /severe pulmonary hypertension Septic shock 2/2 CAP/UTI Renal failure Worsening metabolic acidosis Acute on chronic anemia Thrombocytopenia Conjugated hyperbilirubinemia/transaminitis Innumerable small liver nodules Unintentional weight loss Plan: >FOBT positive >rectal exam- dark green stools >pending H/H repeat >PPI IV BID >endoscopic evaluation not indicated with hemodynamic instability on multiple vasopressors without overt GI blood loss >T&S, hold 2U, provide transfusion for hemodynamic support if blood counts continue to decline >LFTs multifactorial- ischemic hepatopathy, septic shock, congestive hepatopathy , antibiotics >small ascites on ultrasound 12/22, repeat ultrasound- no ascites >hepatorenal syndrome ruled out >Hepatitis panel, AMA, LKM antibody negative >pending smooth muscle antibody >nephrology managing- bicarbonate drip, GENERAL LABOR >ICU managing- vasopressor support >on Cefepime and Azithromycin >poor prognosis, rapid decline in critical clinical status >further recommendations based on clinical course <Jayy Blair - Last Filed: 12/31/16 20:32> Objective - Vital Signs/Intake and Output Vital Signs (last 24 hours): Temp Pulse Resp BP Pulse Ox 97.2 F L 127 H 27 H 96/57 L 93 L 12/31/16 14:30 12/31/16 18:18 12/31/16 18:18 12/31/16 19:57 12/31/16 18:18 Intake and Output: 12/31/16 01/01/17 18:59 06:59 Intake Total 2552.0 Output Total 170 Balance 2382.0 - Medications Medications: Current Medications Diphenoxylate HCl/Atropine (Lomotil 0.025-2.5 Mg Tablet) 1 tab PO Q1H PRN PRN Reason: Diarrhea Stop: 12/31/16 22:38 Last Admin: 12/31/16 10:41 Dose: 1 tab Emollient Ointment (Vaseline Oint) 5 gm TOP QID PRN Last Admin: 12/31/16 01:23 Dose: 5 gm Hydroxychloroquine Sulfate (Plaquenil) 200 mg PO BID [facility] Last Admin: 12/31/16 17:46 Dose: 200 mg Azithromycin 500 mg/ Sodium (Chloride) 250 mls @ 250 mls/hr IVPB DAILY [facility] Last Admin: 12/31/16 10:45 Dose: 250 mls/hr Propofol (Diprivan) 100 mls @ 1.71 mls/hr IV .Q24H PRN; Protocol; 5 MCG/KG/MIN PRN Reason: TITRATE PER MD ORDER Last Admin: 12/31/16 19:46 Dose: 3.42 mls/hr Cefepime HCl (Maxipime Iv 2 Gm Premix) 100 mls @ 100 mls/hr IVPB Q24H [facility] Stop: 01/03/17 10:01 Last Admin: 12/31/16 10:44 Dose: 100 mls/hr Norepinephrine Bitartrate 4 mg (/ Sodium Chloride) 254 mls @ 11.43 mls/hr IV .[id number] PRN; Protocol; 3 MCG/MIN PRN Reason: TITRATE PER MD ORDER Last Admin: 12/31/16 18:18 Dose: 75 mls/hr Sodium Bicarbonate 100 meq/ (Dextrose) 1,000 mls @ 75 mls/hr IV .[id number] [facility] Last Admin: 12/31/16 11:07 Dose: 75 mls/hr Milrinone Lactate/Dextrose 20 (mg/ Dextrose) 100 mls @ 6.3 mls/hr IV .[id number] [facility] PRN Reason: 0.375 MCG/KG/MIN Last Admin: 12/31/16 19:57 Dose: 6.3 mls/hr Lorazepam (Ativan) 1 mg IVP Q6H PRN PRN Reason: Anxiety Last Admin: 12/31/16 16:40 Dose: 1 mg Pantoprazole Sodium (Protonix Inj) 40 mg IVP DAILY [facility] Last Admin: 12/31/16 10:24 Dose: 40 mg - Labs Labs: 12/31/16 14:20 12/31/16 14:20 PT 17.7 SECONDS (9.7-12.2) H 12/30/16 10:43 INR 1.6 12/30/16 10:43 APTT 34 SECONDS (21-34) D 12/25/16 06:11 Attending/Attestation - Attestation I have personally seen and examined this patient.: Yes I have fully participated in the care of the patient.: Yes I have reviewed all pertinent clinical information, including history, physical exam and plan: Yes Notes (Text): 12/31/16 20:27 I have seen and examined patient with GI fellow. Patient remains intubated, sedated, and requiring vasopressor support in ICU. According to nursing staff, dark stool noted with patient having 2 bowel movements today. CVA SLE CHF s/p ICD Hypoxic respiratory failure, pneumonia Multiple liver lesions concerning for malignancy Septic shock - Continue with antibiotic therapy as per medical team - Ventilator and vasopressor support as per critical care team - Obtain AFP - Patient with likely underlying malignancy, though given current clinical state , further workup including endoscopy or CT guided biopsy is not feasible - Continue to monitor LFTs - Continue with PPI therapy and monitor H/H - Patient with overall poor prognosis given clinical decline. No planned GI intervention at this time, will sign off case. Please reconsult as necessary, thank you.
[2016-12-31 14:32] LABS: BASO # 0.1 K/uL (0.0-0.2); BASO % 0.4 % (0.0-2.0); EOS % 0.2 % (0.0-4.0); HEMATOCRIT 29.4 % (34.0-47.0); LYMPH # 0.5 K/uL (1.0-4.3); LYMPH % 2.7 % (20.0-40.0); MEAN CELL VOLUME 103.2 fL (81.0-99.0); MEAN CORPUSCULAR HEMOGLOBIN 32.8 pg (27.0-31.0); MEAN CORPUSCULAR HGB CONC 31.8 g/dL (33.0-37.0); MEAN PLATELET VOLUME 10.4 fL (7.2-11.7); MONO # 1.9 K/uL (0.0-0.8); MONO % 10.1 % (0.0-10.0); NRBC % 0.2 % (0.0-2.0); PLATELET COUNT 122 K/uL (130-400); RED CELL DISTRIBUTION WIDTH 22.7 % (11.5-14.5); WHITE BLOOD COUNT 18.9 K/uL (4.8-10.8)
[2016-12-31 15:04] LABS: NEUTROPHIL 80 % (50-75); TOTAL CELLS COUNTED 100
[2016-12-31 15:12] LABS: CALCIUM 7.7 mg/dl (8.6-10.4); MAGNESIUM 1.7 mg/dL (1.6-2.3)
[2016-12-31 15:52] LABS: ALB/GLOB RATIO 0.6 (1.0-2.1); BILIRUBIN,TOTAL 4.6 mg/dL (0.2-1.3); POTASSIUM 4.5 mmol/L (3.6-5.2); TOTAL PROTEIN 5.9 g/dL (6.3-8.3)
--- NOTE | 2016-12-31 17:37 | CP.PCM.PN ---
Subjective - Date & Time of Evaluation Date of Evaluation: 12/31/16 Time of Evaluation: 17:36 - Subjective Subjective: non verbal on vent Objective - Vital Signs/Intake and Output Vital Signs (last 24 hours): Temp Pulse Resp BP Pulse Ox 97.2 F L 133 H 32 H 115/45 L 93 L 12/31/16 14:30 12/31/16 14:50 12/31/16 14:50 12/31/16 14:50 12/31/16 14:50 Intake and Output: 12/31/16 12/31/16 06:59 18:59 Intake Total 1281.6 2072.9 Output Total 230 85 Balance 1051.6 1987.9 - Medications Medications: Current Medications Diphenoxylate HCl/Atropine (Lomotil 0.025-2.5 Mg Tablet) 1 tab PO Q1H PRN PRN Reason: Diarrhea Stop: 12/31/16 22:38 Last Admin: 12/31/16 10:41 Dose: 1 tab Emollient Ointment (Vaseline Oint) 5 gm TOP QID PRN Last Admin: 12/31/16 01:23 Dose: 5 gm Hydroxychloroquine Sulfate (Plaquenil) 200 mg PO BID [facility] Last Admin: 12/31/16 10:44 Dose: 200 mg Azithromycin 500 mg/ Sodium (Chloride) 250 mls @ 250 mls/hr IVPB DAILY [facility] Last Admin: 12/31/16 10:45 Dose: 250 mls/hr Propofol (Diprivan) 100 mls @ 1.71 mls/hr IV .Q24H PRN; Protocol; 5 MCG/KG/MIN PRN Reason: TITRATE PER MD ORDER Last Admin: 12/31/16 05:24 Dose: 3.42 mls/hr Cefepime HCl (Maxipime Iv 2 Gm Premix) 100 mls @ 100 mls/hr IVPB Q24H [facility] Stop: 01/03/17 10:01 Last Admin: 12/31/16 10:44 Dose: 100 mls/hr Norepinephrine Bitartrate 4 mg (/ Sodium Chloride) 254 mls @ 11.43 mls/hr IV .[id number] PRN; Protocol; 3 MCG/MIN PRN Reason: TITRATE PER MD ORDER Last Admin: 12/31/16 14:50 Dose: 75 mls/hr Sodium Bicarbonate 100 meq/ (Dextrose) 1,000 mls @ 75 mls/hr IV .[id number] [facility] Last Admin: 12/31/16 11:07 Dose: 75 mls/hr Milrinone Lactate/Dextrose 20 (mg/ Dextrose) 100 mls @ 6.3 mls/hr IV .[id number] [facility] PRN Reason: 0.375 MCG/KG/MIN Last Admin: 12/31/16 14:49 Dose: Not Given Lorazepam (Ativan) 1 mg IVP Q6H PRN PRN Reason: Anxiety Last Admin: 12/31/16 16:40 Dose: 1 mg Pantoprazole Sodium (Protonix Inj) 40 mg IVP DAILY [facility] Last Admin: 12/31/16 10:24 Dose: 40 mg - Labs Labs: 12/31/16 14:20 12/31/16 14:20 PT 17.7 SECONDS (9.7-12.2) H 12/30/16 10:43 INR 1.6 12/30/16 10:43 APTT 34 SECONDS (21-34) D 12/25/16 06:11 - Constitutional Appears: In Acute Distress - Head Exam Head Exam: ATRAUMATIC - Respiratory Exam Respiratory Exam: Rhonchi Additional comments: tachypnea - Cardiovascular Exam Cardiovascular Exam: Tachycardia, +S1, +S2 - GI/Abdominal Exam GI & Abdominal Exam: Soft, Normal Bowel Sounds. absent: Tenderness - Neurological Exam Neurological Exam: absent: Alert, Awake, Oriented x3 Assessment and Plan - Assessment and Plan (Free Text) Assessment: on drips levophed cont icu management following socially until stable for floor cont ICU management Per ICU Pt is 61F with extensive medical history pertinent for lupus, heart failure with AICD, stroke with left-sided deficit, and HTN admitted to the ICU s/p agonal breathing requiring intubation on medical floor. Patient being treated for sepsis likely secondary to aspiration pneumonia. Consideration were made for cavitary lesions which prompted a mycobacterium TB workup, however, likely pneumonia, given negative AFB smear isolation precautions discontinued. Plan: Neuro: Sedated on Propofol (previously Versed) History of CVA with residual weakness Head CT: No evidence of acute intracranial hemorrhage, acute territorial infarct , mass effect or midline shift. Moderate-size encephalomalacia at the left temporal parietal lobe suggestive of chronic left MCA territory infarct. Moderate atrophy and white matter changes. CVS: Currently normotensive, BP 107/60 CHF with EF noted to be 26% on previous echocardiogram Repeat echo (12/22/16): LVEF <20%, LV is mildly dilated, LA is mildly dilated. Mild AR, moderate-severe MR, Moderate-severe pulmonary HTN. 12/28/[address] - Left-sided AICD. Cardiomegaly. Coronary artery calcifications. AICD - interrogated 12/25, no issues Pro-BNP 32,000 (12/22/16) History of HTN Follows client customer manager Dr. Rubio as outpatient Oil Fire Specialist Dr. Montelongo consulted - help appreciated On Dopamine drip TLC in RIJ YOUSUF panel negative. Troponins 0.0240>0.0670>0.0830 Pulm: Intubated on AC/PRVC, Observed RR 16 Vent settings: 500/16/5 FiO2 40% 12/30/16 ABG: pCO2 22, pO2, HCO3 13.6, pH 7.29 12/28/16 ABG: pCO2 25, pO2 115, HCO3 17.3, pH 7.36 12/25/16 ABG: pCO2 24, pO2 191, HCO3 20.3, pH 7.44, Lactate 1.4 12/24/16 ABG: pCO2 26, pO2 221, HCO3 17.9, pH 7.36, lactate 2.3 Saturating 98% 12/28/[address] - Extensive right upper lobe consolidation/pneumonia. Bibasilar atelectasis. Small right pleural effusion. Recommend follow-up to resolution. 12/30/16 CXR: Persistent hazy opacity in the right upper lobe. No significant interval change. Improved. 12/28/16 CXR: Lines and tubes in stable position. Left-sided pacemaker. Persistent ill-defined consolidative changes seen within the right upper to mid lung zone. No significant interval change. 12/25/16 CXR: Endotracheal tube extending into the midthoracic trachea. NG tube extending into stomach. Right central venous catheter extending in to the cavoatrial junction. Dense consolidative opacification of the right upper and midlung zones. Milder patchy opacity at the lung base. Diffuse increased interstitial lung markings. 12/24/16 CXR: Worsening RUL consolidation, cardiomegaly, left-sided AICD CT Abdomen and Pelvis w/o contrast (12/22/16): Small to moderate R pleural effusion. Possible aspiration pneumonia AFB smear negative, culture pending D/c isolation Antibiotics as below GI: Still has diarrhea, stool sample for C.diff is negative OG tube, receiving feeds Hepatitis panel negative, AMA negative (r/o PBC), Ceruloplasmin negative, LKM ab negative, Anti-SM - pending. GI will consider EUS if workup is negative and direct bili remains elevated. GI consulted - help appreciated Per GI, repeat U/S to assess for hepatorenal syndrome, cardiorenal syndrome and SBP. Change to PPI IV daily Pancreatic protocol CT (12/25/16) - Fatty infiltration of the liver, heterogeneous. Innumerable small enhancing nodules on portal venous phase images of the liver. Uncertain significance. Consider metastatic disease. Unlikely hepatocellular neoplasm. No evidence of pancreatitis or pancreatic mass. No biliary obstruction. Mild ascites. Small right and trace left pleural effusion with lower lobe compressive atelectasis. Permanent pacemaker. Nasogastric tube. Brunner catheter. T.bili of 9.5, Direct bili of 7.2, GGT 126, AST 126, ALT 79 on admission T. bili 6.6, AST 163, ALT 105 (12/24/16) T. bili 7.6, AST 201, ALT 109 (12/25/16) T. bili 5.3, AST 507, ALT 221, Alk phos 132 (12/28/16) T. bili 4.2, AST 523, ALT 313, Alk phos 108 (12/30/16) Continue to trend T.bili and LFTs - stabilizing - likely 2/[address] Abdomen and Pelvis w/o contrast (12/22/16): Small to moderate right pleural effusion. Trace ascites. Nonspecific presacral edema. Mild generalized anasarca. Mild hepatomegaly with fatty infiltration of the liver. No evidence of biliary obstruction. No evidence of cholecystitis. Mild nonspecific presacral edema, possibly related generalized anasarca. RUQ US (12/23/16): Right renal cysts. Incidental note is made of small right pleural effusion. Echogenic liver may be in setting of hepatic parenchymal disease or fatty infiltration. Small perihepatic ascites. Small fluid is noted by the gallbladder fossa. Gallbladder wall thickening/pericholecystic edema without evidence of gallstones. Negative sonographic Hutchinson's sign as assessed by the activity therapy specialist. No portal vein thrombosis. Heme: Hgb 8.5 Monitor Hct 26.3 Plt 91 Thrombocytopenia slowly improving Monitor Endo: T3 and T4 are low on admission with normal TSH TSH 1.34, T3 uptake >65.o, Free T4 0.87 Maintain euglycemia Rheumatology: History of lupus On plaquenil 200mg BID Folic acid 1mg PO daily IgG 1775.0 IgA 510.1 IgM 66.[address] Reynaga as outpatient Nephro: BUN/Cr 47/3.0 UTI: 12/26 culture positive for E.Coli, Abx as below 12/28/[address] - Limited visualization of the upper abdomen demonstrates numerous bilateral renal lesions, possibly cysts. Hyperdense 11 mm left upper pole exophytic lesion, indeterminate. Decreased urine output, I/o 2545/390 Nephro (Dr. Wong) consulted -help appreciated Increased IVF Monitor : monitor urine output Brunner in Maintenance fluids 75 cc/hr ID: Leukocytosis (WBC: 11.9) Possible aspiration pneumonia Hepatitis panel negative UTI, urine cx positive for E.coli Started Cefepime 2gm IVPB Q8H (12/24/16) On Azithromycin 500 mg IVPB daily, Cefepime IV 2GM daily Stool for C.diff - negative AFB smear negative Mycobacterial culture - pending D/c isolation Prophylaxis: Heparin 5000U SC Q8H Protonix 40 mg IV daily
--- NOTE | 2016-12-31 18:18 | CP.CCUPN ---
<Stephanie Echeverria - Last Filed: 12/31/16 18:18> CCU Subjective - Physician Review Subjective (Free Text): 12/28/16 20:48 Patient seen and examined at bedside. No acute distress. No acute events overnight per nursing. Patient back on AC/PRVC. Patient's persistent low BP halted attempts at a weaning trial. Patient able to follow commands. 12/29/16 15:52 Patient seen and examined at bedside. Per nursing decreased urine output. Patient began Milrinone drip yesterday at 0.5 mcg/kg/mi. Bp remains hypotensive but stable. 12/30/16 17:37 Patient seen and examined at bedside in no acute distress. Pt is intubated, on Milrinone drip, still low urine output . BP improved. Unable to obtain ROS at this point due to sedation. 12/31/16 18:19 Pt seen and examined at bedside . Patient's presentation appears to be worsening. Pt is intubated with continued low urine output. Current presentation as well as prognosis discussed with family members ( son and daughter-in law). Unable to obtain ROS at this time due to sedation. CCU Objective - Vital Signs / Intake & Output Vital Signs (Last 4 hours): Vital Signs Temp Pulse Resp BP Pulse Ox 12/31/16 18:07 128 H 32 H 101/47 L 93 L 12/31/16 18:00 128 H 31 H 93 L 12/31/16 17:52 128 H 32 H 103/39 L 93 L 12/31/16 17:51 128 H 32 H 92 L 12/31/16 17:37 129 H 33 H 98/37 L 93 L 12/31/16 17:22 130 H 32 H 96/43 L 93 L 12/31/16 17:07 131 H 33 H 101/44 L 92 L 12/31/16 17:00 132 H 32 H 91 L 12/31/16 16:55 133 H 33 H 108/42 L 92 L 12/31/16 16:52 132 H 33 H 108/42 L 92 L 12/31/16 16:37 135 H 34 H 118/52 L 92 L 12/31/16 16:22 133 H 34 H 113/59 L 90 L 12/31/16 16:07 133 H 32 H 104/47 L 99 12/31/16 16:00 134 H 34 H 90 L 12/31/16 15:52 134 H 34 H 110/56 L 91 L 12/31/16 15:37 135 H 32 H 115/47 L 90 L 12/31/16 15:22 134 H 34 H 98/69 L 90 L 12/31/16 15:07 134 H 34 H 100/72 91 L 12/31/16 15:00 133 H 34 H 90 L 12/31/16 14:52 133 H 31 H 103/50 L 90 L 12/31/16 14:50 133 H 32 H 115/45 L 93 L 12/31/16 14:41 133 H 27 H 90 L 12/31/16 14:39 132 H 34 H 115/45 L 92 L 12/31/16 14:30 97.2 F L 133 H 34 H 115/45 L 12/31/16 14:22 135 H 21 120/57 L 90 L Intake and Output (Last 8hrs): Intake & Output 12/31/16 12/31/16 12/31/16 06:59 14:59 22:59 Intake Total 854.4 1913.2 638.8 Output Total 180 65 105 Balance 674.4 1848.2 533.8 Weight 123 lb Intake: Intake, IV Amount 694.4 1398.2 638.8 Right Proximal Port 27.2 54.4 13.6 Internal Jugular Right Medial Port 67.2 60.9 25.2 Internal Jugular Right Distal Port 600 975 300 Internal Jugular Right Distal Port 307.9 300 Tube Feeding 160 40 0 Blood Product 325 Apheresis Rbc Cp2d As3 Lr 325 2nd Unit [id number] Other 150 Apheresis Rbc Cp2d As3 Lr 150 2nd Unit [id number] Output: Urine 180 65 105 Urethral ([place]) 180 65 105 Other: # Bowel Movements 0 - Physical Exam Head: Positive for: Atraumatic, Normocephalic Pupils: Positive for: PERRL Extroacular Muscles: Positive for: EOMI Conjunctiva: Positive for: Normal Mouth: Positive for: Moist Mucous Membranes Pharnyx: Positive for: Other (intubated, OG tube) Respiratory/Chest: Positive for: Good Air Exchange, Other (intubated) Cardiovascular: Positive for: Normal S1, S2. Negative for: Murmurs Abdomen: Positive for: Normal Bowel Sounds. Negative for: Tenderness, Distention Upper Extremity: Positive for: Other (scratches to upper extremities noted) Lower Extremity: Positive for: Other (1+ pitting edema to bilateral lower extremities ) Neurological: Positive for: Other (responsive to pain, corneal reflex, gag and cough reflexes intact, pupils reactive to light) Skin: Positive for: Warm, Dry Psychiatric: Positive for: Alert - Medications Active Medications: Active Medications Generic Name Dose Route Start Last Admin Trade Name Freq PRN Reason Stop Dose Admin Diphenoxylate HCl/Atropine 1 tab 12/29/16 22:37 12/31/16 10:41 Lomotil 0.025-2.5 Mg Tablet PO 12/31/16 22:38 1 tab Q1H PRN Administration Diarrhea Emollient Ointment 5 gm 12/27/16 21:16 12/31/16 01:23 Vaseline Oint TOP 5 gm QID PRN Administration Hydroxychloroquine Sulfate 200 mg 12/23/16 10:00 12/31/16 17:46 Plaquenil PO 200 mg BID LINN Administration Azithromycin 500 mg/ Sodium 250 mls @ 250 mls/hr 12/23/16 10:00 12/31/16 10:45 Chloride IVPB 250 mls/hr DAILY LINN Administration Propofol 100 mls @ 1.71 mls/hr 12/25/16 11:07 12/31/16 05:24 Diprivan IV 3.42 mls/hr .Q24H PRN Administration TITRATE PER MD ORDER Protocol 5 MCG/KG/MIN Cefepime HCl 100 mls @ 100 mls/hr 12/29/16 10:00 12/31/16 10:44 Maxipime Iv 2 Gm Premix IVPB 01/03/17 10:01 100 mls/hr Q24H LINN Administration Norepinephrine Bitartrate 4 mg 254 mls @ 11.43 mls/hr 12/31/16 10:33 12/31/16 14:50 / Sodium Chloride IV 75 mls/hr .[id number] PRN Administration TITRATE PER MD ORDER Protocol 3 MCG/MIN Sodium Bicarbonate 100 meq/ 1,000 mls @ 75 mls/hr 12/31/16 11:00 12/31/16 11:07 Dextrose IV 75 mls/hr .[id number] LINN Administration Milrinone Lactate/Dextrose 20 100 mls @ 6.3 mls/hr 12/31/16 11:58 12/31/16 14: 49 mg/ Dextrose IV Not Given .[id number] LINN 0.375 MCG/KG/MIN Lorazepam 1 mg 12/31/16 10:32 12/31/16 16:40 Ativan IVP 1 mg Q6H PRN Administration Anxiety Pantoprazole Sodium 40 mg 12/30/16 10:00 12/31/16 10:24 Protonix Inj IVP 40 mg DAILY LINN Administration - Patient Studies Lab Studies: Microbiology Studies 12/30/16 13:00 Mycobacterial Culture - Preliminary Other: Please Indicate 12/29/16 08:55 Mycobacterial Culture - Preliminary Other: Please Indicate Lab Studies 12/31/16 12/31/16 12/31/16 Range/Units 14:20 10:55 08:43 WBC 18.9 H D (4.8-10.8) K/uL RBC 2.85 L (3.80-5.20) Mil/uL Hgb 9.3 L (11.0-16.0) g/dL Hct 29.4 L (34.0-47.0) % MCV 103.2 H (81.0-99.0) fL MCH 32.8 H (27.0-31.0) pg MCHC 31.8 L (33.0-37.0) g/dL RDW 22.7 H (11.5-14.5) % Plt Count 122 L D (130-400) K/uL MPV 10.4 (7.2-11.7) fL Neut % (Auto) 86.6 H (50.0-75.0) % Lymph % (Auto) 2.7 L (20.0-40.0) % Campbell % (Auto) 10.1 H (0.0-10.0) % Eos % (Auto) 0.2 (0.0-4.0) % Baso % (Auto) 0.4 (0.0-2.0) % Neut # 16.3 H (1.8-7.0) K/uL Lymph # 0.5 L (1.0-4.3) K/uL Campbell # 1.9 H (0.0-0.8) K/uL Eos # 0.0 (0.0-0.7) K/uL Baso # 0.1 (0.0-0.2) K/uL Neutrophils % (Manual) 80 H (50-75) % Band Neutrophils % 8 H (0-2) % Lymphocytes % (Manual) 6 L (20-40) % Monocytes % (Manual) 6 (0-10) % Eosinophils % (Manual) (0-4) % Toxic Granulation Platelet Estimate Slightly decreased L (NORMAL) Large Platelets Polychromasia Slight Hypochromasia (manual) Slight Poikilocytosis (manual Slight Anisocytosis (manual) Moderate Macrocytosis (manual) Moderate Target Cells Slight Tear Drop Cells Slight Orin Cells Slight Puncture Site pCO2 (35-45) mm/Hg pO2 43 (30-55) mm/Hg HCO3 (21-28) mmol/L ABG pH (7.35-7.45) ABG Total CO2 (22-28) mmol/L ABG O2 Saturation (95-98) % ABG Base Excess (-2.0-3.0) mmol/L ABG Hemoglobin (11.7-17.4) g/dL ABG Carboxyhemoglobin (0.5-1.5) % POC ABG HHb (Measured) (0.0-5.0) % ABG Methemoglobin (0.0-3.0) % Billy Test VBG pH 7.25 L (7.32-7.43) VBG pCO2 24 L (40-60) mmHg VBG HCO3 12.5 mmol/L VBG Total CO2 11.2 L (22-28) mmol/L VBG O2 Sat (Calc) 80.8 H (40-65) % VBG Base Excess -14.9 L (0.0-2.0) mmol/L VBG Potassium 4.5 (3.6-5.2) mmol/L A-a O2 Difference mm/Hg Respiratory Index Hgb O2 Saturation (95.0-98.0) % Glucose 115 H (65-105) mg/dl Lactate 1.2 (0.7-2.1) mmol/L Mechanical Rate FiO2 40.0 % Tidal Volume PEEP 5 Sodium 147 145.0 (132-148) mmol/L Potassium 4.5 (3.6-5.2) mmol/L Chloride 117 H 126.0 H (98-107) mmol/L Carbon Dioxide 11 L* (22-30) mmol/L Anion Gap 24 H (10-20) BUN 55 H (7-17) mg/dL Creatinine 3.7 H (0.7-1.2) MG/DL Est GFR ( Amer) 15 Est GFR (Non-Af Amer) 13 Random Glucose 126 H (65-105) mg/dL Calcium 7.7 L (8.6-10.4) mg/dl Phosphorus 4.0 (2.5-4.5) mg/dL Magnesium 1.7 (1.6-2.3) mg/dL Total Bilirubin 4.6 H (0.2-1.3) mg/dL AST 229 H (14-36) U/L ALT 225 H (9-52) U/L Alkaline Phosphatase 113 (38-126) U/L Total Protein 5.9 L (6.3-8.3) g/dL Albumin 2.1 L (3.5-5.0) g/dL Globulin 3.8 (2.2-3.9) gm/dL Albumin/Globulin Ratio 0.6 L (1.0-2.1) Venous Blood Potassium 4.5 (3.6-5.2) mmol/L Stool Occult Blood Positive H (NEGATIVE) Blood Type B POSITIVE Blood Type Confirm B POSITIVE Antibody Screen Negative 12/31/16 12/31/16 Range/Units 06:34 05:16 WBC 12.5 H (4.8-10.8) K/uL RBC 2.18 L (3.80-5.20) Mil/uL Hgb 7.5 L (11.0-16.0) g/dL Hct 22.8 L (34.0-47.0) % MCV 104.5 H (81.0-99.0) fL MCH 34.5 H (27.0-31.0) pg MCHC 33.0 (33.0-37.0) g/dL RDW 22.8 H (11.5-14.5) % Plt Count 88 L (130-400) K/uL MPV 11.2 (7.2-11.7) fL Neut % (Auto) 86.9 H (50.0-75.0) % Lymph % (Auto) 5.0 L (20.0-40.0) % Campbell % (Auto) 7.4 (0.0-10.0) % Eos % (Auto) 0.3 (0.0-4.0) % Baso % (Auto) 0.4 (0.0-2.0) % Neut # 10.9 H (1.8-7.0) K/uL Lymph # 0.6 L (1.0-4.3) K/uL Campbell # 0.9 H (0.0-0.8) K/uL Eos # 0.0 (0.0-0.7) K/uL Baso # 0.0 (0.0-0.2) K/uL Neutrophils % (Manual) 77 H (50-75) % Band Neutrophils % 12 H* (0-2) % Lymphocytes % (Manual) 3 L (20-40) % Monocytes % (Manual) 7 (0-10) % Eosinophils % (Manual) 1 (0-4) % Toxic Granulation Present Platelet Estimate Decreased L (NORMAL) Large Platelets Present Polychromasia Hypochromasia (manual) Poikilocytosis (manual Slight Anisocytosis (manual) Moderate Macrocytosis (manual) Moderate Target Cells Slight Tear Drop Cells [place] Cells Puncture Site Lb pCO2 20 L (35-45) mm/Hg pO2 101 H (30-55) mm/Hg HCO3 13.8 L (21-28) mmol/L ABG pH 7.32 L (7.35-7.45) ABG Total CO2 10.9 L (22-28) mmol/L ABG O2 Saturation 99.6 H (95-98) % ABG Base Excess -14.3 L (-2.0-3.0) mmol/L ABG Hemoglobin 7.8 L (11.7-17.4) g/dL ABG Carboxyhemoglobin 2.4 H (0.5-1.5) % POC ABG HHb (Measured) 0.4 (0.0-5.0) % ABG Methemoglobin 1.2 (0.0-3.0) % Billy Test Pos VBG pH (7.32-7.43) VBG pCO2 (40-60) mmHg VBG HCO3 mmol/L VBG Total CO2 (22-28) mmol/L VBG O2 Sat (Calc) (40-65) % VBG Base Excess (0.0-2.0) mmol/L VBG Potassium (3.6-5.2) mmol/L A-a O2 Difference 159.0 mm/Hg Respiratory Index 1.6 Hgb O2 Saturation 96.1 (95.0-98.0) % Glucose (65-105) mg/dl Lactate (0.7-2.1) mmol/L Mechanical Rate 16 FiO2 40.0 % Tidal Volume 500 PEEP 5 Sodium 146 (132-148) mmol/L Potassium 3.9 (3.6-5.2) mmol/L Chloride 117 H (98-107) mmol/L Carbon Dioxide 11 L* (22-30) mmol/L Anion Gap 22 H (10-20) BUN 49 H (7-17) mg/dL Creatinine 3.6 H (0.7-1.2) MG/DL Est GFR ( Amer) 16 Est GFR (Non-Af Amer) 13 Random Glucose 72 (65-105) mg/dL Calcium 7.8 L (8.6-10.4) mg/dl Phosphorus 3.1 (2.5-4.5) mg/dL Magnesium 1.8 (1.6-2.3) mg/dL Total Bilirubin 4.2 H (0.2-1.3) mg/dL AST 240 H D (14-36) U/L ALT 221 H D (9-52) U/L Alkaline Phosphatase 99 (38-126) U/L Total Protein 5.3 L (6.3-8.3) g/dL Albumin 1.8 L (3.5-5.0) g/dL Globulin 3.5 (2.2-3.9) gm/dL Albumin/Globulin Ratio 0.5 L (1.0-2.1) Venous Blood Potassium (3.6-5.2) mmol/L Stool Occult Blood (NEGATIVE) Blood Type Blood Type Confirm Antibody Screen Laboratory Results - last 24 hr 12/31/16 12/31/16 12/31/16 05:16 06:34 08:43 WBC 12.5 H RBC 2.18 L Hgb 7.5 L Hct 22.8 L MCV 104.5 H MCH 34.5 H MCHC 33.0 RDW 22.8 H Plt Count 88 L MPV 11.2 Neut % (Auto) 86.9 H Lymph % (Auto) 5.0 L Campbell % (Auto) 7.4 Eos % (Auto) 0.3 Baso % (Auto) 0.4 Neut # 10.9 H Lymph # 0.6 L Campbell # 0.9 H Eos # 0.0 Baso # 0.0 Neutrophils % (Manual) 77 H Band Neutrophils % 12 H* Lymphocytes % (Manual) 3 L Monocytes % (Manual) 7 Eosinophils % (Manual) 1 Toxic Granulation Present Platelet Estimate Decreased L Large Platelets Present Polychromasia Hypochromasia (manual) Poikilocytosis (manual Slight Anisocytosis (manual) Moderate Macrocytosis (manual) Moderate Target Cells Slight Tear Drop Cells [place] Cells Puncture Site Lb pCO2 20 L pO2 101 H HCO3 13.8 L ABG pH 7.32 L ABG Total CO2 10.9 L ABG O2 Saturation 99.6 H ABG Base Excess -14.3 L ABG Hemoglobin 7.8 L ABG Carboxyhemoglobin 2.4 H POC ABG HHb (Measured) 0.4 ABG Methemoglobin 1.2 Billy Test Pos VBG pH VBG pCO2 VBG HCO3 VBG Total CO2 VBG O2 Sat (Calc) VBG Base Excess VBG Potassium A-a O2 Difference 159.0 Respiratory Index 1.6 Hgb O2 Saturation 96.1 Glucose Lactate Mechanical Rate 16 FiO2 40.0 Tidal Volume 500 PEEP 5 Sodium 146 Potassium 3.9 Chloride 117 H Carbon Dioxide 11 L* Anion Gap 22 H BUN 49 H Creatinine 3.6 H Est GFR ( Amer) 16 Est GFR (Non-Af Amer) 13 Random Glucose 72 Calcium 7.8 L Phosphorus 3.1 Magnesium 1.8 Total Bilirubin 4.2 H AST 240 H D ALT 221 H D Alkaline Phosphatase 99 Total Protein 5.3 L Albumin 1.8 L Globulin 3.5 Albumin/Globulin Ratio 0.5 L Venous Blood Potassium Stool Occult Blood Positive H Blood Type B POSITIVE Blood Type Confirm B POSITIVE Antibody Screen Negative 12/31/16 12/31/16 10:55 14:20 WBC 18.9 H D RBC 2.85 L Hgb 9.3 L Hct 29.4 L MCV 103.2 H MCH 32.8 H MCHC 31.8 L RDW 22.7 H Plt Count 122 L D MPV 10.4 Neut % (Auto) 86.6 H Lymph % (Auto) 2.7 L Campbell % (Auto) 10.1 H Eos % (Auto) 0.2 Baso % (Auto) 0.4 Neut # 16.3 H Lymph # 0.5 L Campbell # 1.9 H Eos # 0.0 Baso # 0.1 Neutrophils % (Manual) 80 H Band Neutrophils % 8 H Lymphocytes % (Manual) 6 L Monocytes % (Manual) 6 Eosinophils % (Manual) Toxic Granulation Platelet Estimate Slightly decreased L Large Platelets Polychromasia Slight Hypochromasia (manual) Slight Poikilocytosis (manual Slight Anisocytosis (manual) Moderate Macrocytosis (manual) Moderate Target Cells Slight Tear Drop Cells Slight Orin Cells Slight Puncture Site pCO2 pO2 43 HCO3 ABG pH ABG Total CO2 ABG O2 Saturation ABG Base Excess ABG Hemoglobin ABG Carboxyhemoglobin POC ABG HHb (Measured) ABG Methemoglobin Billy Test VBG pH 7.25 L VBG pCO2 24 L VBG HCO3 12.5 VBG Total CO2 11.2 L VBG O2 Sat (Calc) 80.8 H VBG Base Excess -14.9 L VBG Potassium 4.5 A-a O2 Difference Respiratory Index Hgb O2 Saturation Glucose 115 H Lactate 1.2 Mechanical Rate FiO2 40.0 Tidal Volume PEEP 5 Sodium 145.0 147 Potassium 4.5 Chloride 126.0 H 117 H Carbon Dioxide 11 L* Anion Gap 24 H BUN 55 H Creatinine 3.7 H Est GFR ( Amer) 15 Est GFR (Non-Af Amer) 13 Random Glucose 126 H Calcium 7.7 L Phosphorus 4.0 Magnesium 1.7 Total Bilirubin 4.6 H AST 229 H ALT 225 H Alkaline Phosphatase 113 Total Protein 5.9 L Albumin 2.1 L Globulin 3.8 Albumin/Globulin Ratio 0.6 L Venous Blood Potassium 4.5 Stool Occult Blood Blood Type Blood Type Confirm Antibody Screen Fingerstick Blood Sugar Results: 105 Review of Systems - Review of Systems Review of Systems: as noted in subjective Assessment/Plan - Assessment and Plan (Free Text) Assessment: Pt is 61F with extensive medical history pertinent for lupus, heart failure with AICD, stroke with left-sided deficit, and HTN admitted to the ICU s/p agonal breathing requiring intubation on medical floor. Patient being treated for sepsis likely secondary to aspiration pneumonia. Patient metabolic status worsening secondary to underlying sepsis and worsening kidney function. Plan: Neuro: Sedated on Propofol (previously Versed), PRN Ativan Q6 History of CVA with residual weakness Head CT: No evidence of acute intracranial hemorrhage, acute territorial infarct , mass effect or midline shift. Moderate-size encephalomalacia at the left temporal parietal lobe suggestive of chronic left MCA territory infarct. Moderate atrophy and white matter changes. CVS: BP improved CHF with EF noted to be 26% on previous echocardiogram- Milrinone dec to 0.375 mcg Repeat echo (12/22/16): LVEF <20%, LV is mildly dilated, LA is mildly dilated. Mild AR, moderate-severe MR, Moderate-severe pulmonary HTN. 12/28/[address] - Left-sided AICD. Cardiomegaly. Coronary artery calcifications. 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 Rubio as outpatient Brand Marketing Intern Dr. Montelonog consulted - help appreciated Dopamine sitched to Levophed TLC in RIJ YOUSUF panel negative. Troponins 0.0240>0.0670>0.0830 Pulm: Intubated on AC/PRVC, Observed RR 16 Vent settings adjusted accordingly 12/31/16 ABG: pCO2 20, pO2 101, HCO3 13.8, pH 7.32; VBG pH 7.25, pCO2 24, HCO3 12.5, Lactate 1.2. Worsening CO2 11, repeat check remained at 11- Bicarb drip started 12/3112/30/16 ABG: pCO2 22, pO2, HCO3 13.6, pH 7.29 12/28/16 ABG: pCO2 25, pO2 115, HCO3 17.3, pH 7.36 12/25/16 ABG: pCO2 24, pO2 191, HCO3 20.3, pH 7.44, Lactate 1.4 12/24/16 ABG: pCO2 26, pO2 221, HCO3 17.9, pH 7.36, lactate 2.3 Saturating 98% Chest XRAY 12/31/16- No changes in right upper lobe- new patchy infiltrates in lingular segment of left upper lobe 12/28/[address] - Extensive right upper lobe consolidation/pneumonia. Bibasilar atelectasis. Small right pleural effusion. Recommend follow-up to resolution. 12/30/16 CXR: Persistent hazy opacity in the right upper lobe. No significant interval change. Improved. AFB smear negative, culture pending D/c isolation Antibiotics as below GI: Still has diarrhea, stool sample for C.diff is negative OG tube, receiving feeds Hepatitis panel negative, AMA negative (r/o PBC), Ceruloplasmin negative, LKM ab negative, Anti-SM - pending. GI will consider EUS if workup is negative and direct bili remains elevated. GI consulted - help appreciated Per GI, repeat U/S to assess for hepatorenal syndrome, cardiorenal syndrome and SBP. Change to PPI IV daily Pancreatic protocol CT (12/25/16) - Fatty infiltration of the liver, heterogeneous. Innumerable small enhancing nodules on portal venous phase images of the liver. Uncertain significance. Consider metastatic disease. Unlikely hepatocellular neoplasm. No evidence of pancreatitis or pancreatic mass. No biliary obstruction. Mild ascites. Small right and trace left pleural effusion with lower lobe compressive atelectasis. Permanent pacemaker. Nasogastric tube. Brunner catheter. T.bili of 9.5, Direct bili of 7.2, GGT 126, AST 126, ALT 79 on admission T. bili 6.6, AST 163, ALT 105 (12/24/16) T. bili 7.6, AST 201, ALT 109 (12/25/16) T. bili 5.3, AST 507, ALT 221, Alk phos 132 (12/28/16) T. bili 4.2, AST 523, ALT 313, Alk phos 108 (12/30/16) Continue to trend T.bili and LFTs - stabilizing - likely 2/[address] Abdomen and Pelvis w/o contrast (12/22/16): Small to moderate right pleural effusion. Trace ascites. Nonspecific presacral edema. Mild generalized anasarca. Mild hepatomegaly with fatty infiltration of the liver. No evidence of biliary obstruction. No evidence of cholecystitis. Mild nonspecific presacral edema, possibly related generalized anasarca. RUQ US (12/23/16): Right renal cysts. Incidental note is made of small right pleural effusion. Echogenic liver may be in setting of hepatic parenchymal disease or fatty infiltration. Small perihepatic ascites. Small fluid is noted by the gallbladder fossa. Gallbladder wall thickening/pericholecystic edema without evidence of gallstones. Negative sonographic Hutchinson's sign as assessed by the shipyard painter helper. No portal vein thrombosis. Heme: Hgb 7.5 in the Am- transfused 2 units -> 9.3 afterwards Platelets improved to 122 Thrombocytopenia slowly improving Monitor Endo: T3 and T4 are low on admission with normal TSH TSH 1.34, T3 uptake >65.o, Free T4 0.87 Maintain euglycemia Rheumatology: History of lupus On plaquenil 200mg BID Folic acid 1mg PO daily IgG 1775.0 IgA 510.1 IgM 66.[address] Reynaga as outpatient Nephro: Poor GFR- Nephro ( Dr. Wong consulted) - patient would benefit from dialysis however will hold at this time considering patient status. Patient may not be able to tolerate such a procedure at this point. UTI: 12/26 culture positive for E.Coli, Abx as below 12/28/[address] - Limited visualization of the upper abdomen demonstrates numerous bilateral renal lesions, possibly cysts. Hyperdense 11 mm left upper pole exophytic lesion, indeterminate. Decreased urine output Increased IVF Trial Lasix 60mg once Monitor : monitor urine output Brunner in Maintenance fluids 75 cc/hr ID: Leukocytosis Possible aspiration pneumonia- on abx Hepatitis panel negative UTI, urine cx positive for E.coli Started Cefepime 2gm IVPB Q8H (12/24/16) On Azithromycin 500 mg IVPB daily, Cefepime IV 2GM daily Stool for C.diff - negative AFB smear negative Mycobacterial culture - pending D/c isolation Prophylaxis: Heparin 5000U SC Q8H Protonix 40 mg IV daily <Volodymyr Beckman - Last Filed: 01/01/17 11:59> CCU Objective - Vital Signs / Intake & Output Vital Signs (Last 4 hours): Vital Signs Pulse Resp BP Pulse Ox 01/01/17 10:15 122 H 29 H 100/52 L 94 L 01/01/17 08:35 122 H 29 H 100/52 L 94 L Intake and Output (Last 8hrs): Intake & Output 12/31/16 01/01/17 01/01/17 22:59 06:59 14:59 Intake Total 1282.7 1116.9 256.4 Output Total 180 525 0 Balance 1102.7 591.9 256.4 Weight 125 lb Intake: Intake, IV Amount 1282.7 1116.9 256.4 Right Proximal Port 32.3 40.8 10.2 Internal Jugular Right Medial Port 50.4 50.4 12.6 Internal Jugular Right Distal Port 600 600 150 Internal Jugular Right Distal Port 600 425.7 83.6 Tube Feeding 0 0 0 Output: Urine 180 225 0 Urethral ([place]runner) 180 225 0 Other 300 Other: # Bowel Movements 0 0 - Medications Active Medications: Active Medications Generic Name Dose Route Start Last Admin Trade Name Freq PRN Reason Stop Dose Admin Emollient Ointment 5 gm 12/27/16 21:16 12/31/16 01:23 Vaseline Oint TOP 5 gm QID PRN Administration Hydroxychloroquine Sulfate 200 mg 12/23/16 10:00 01/01/17 10:14 Plaquenil PO 200 mg BID LINN Administration Azithromycin 500 mg/ Sodium 250 mls @ 250 mls/hr 12/23/16 10:00 01/01/17 09:55 Chloride IVPB 250 mls/hr DAILY LINN Administration Propofol 100 mls @ 1.71 mls/hr 12/25/16 11:07 12/31/16 20:45 Diprivan IV 15 mcg/kg/min .Q24H PRN Titration TITRATE PER MD ORDER Protocol 5 MCG/KG/MIN Cefepime HCl 100 mls @ 100 mls/hr 12/29/16 10:00 01/01/17 10:06 Maxipime Iv 2 Gm Premix IVPB 01/03/17 10:01 100 mls/hr Q24H LINN Administration Sodium Bicarbonate 100 meq/ 1,000 mls @ 75 mls/hr 12/31/16 11:00 01/01/17 01:53 Dextrose IV 75 mls/hr .[id number] LINN Administration Milrinone Lactate/Dextrose 20 100 mls @ 6.3 mls/hr 12/31/16 11:58 01/01/17 08: 35 mg/ Dextrose IV 6.3 mls/hr .[id number] LINN Administration 0.375 MCG/KG/MIN Norepinephrine Bitartrate 8 mg 258 mls @ 38.7 mls/hr 12/31/16 22:46 01/01/17 10 :15 / Sodium Chloride IV 48.37 mls/hr .[id number] PRN Administration TITRATE PER MD ORDER Protocol 20 MCG/MIN Lorazepam 1 mg 12/31/16 10:32 12/31/16 16:40 Ativan IVP 1 mg Q6H PRN Administration Anxiety Nystatin 1 applic 01/01/17 10:15 01/01/17 10:21 Nystop Topical Powder TOP 1 appl BID LINN Administration Pantoprazole Sodium 40 mg 12/30/16 10:00 01/01/17 10:14 Protonix Inj IVP 40 mg DAILY LINN Administration - Patient Studies Lab Studies: Microbiology Studies 12/30/16 13:00 Mycobacterial Culture - Preliminary Other: Please Indicate Lab Studies 01/01/17 01/01/17 12/31/16 Range/Units 05:59 05:09 14:20 WBC 15.9 H 18.9 H D (4.8-10.8) K/uL RBC 2.50 L 2.85 L (3.80-5.20) Mil/uL Hgb 8.0 L 9.3 L (11.0-16.0) g/dL Hct 25.2 L 29.4 L (34.0-47.0) % MCV 101.0 H D 103.2 H (81.0-99.0) fL MCH 31.9 H 32.8 H (27.0-31.0) pg MCHC 31.6 L 31.8 L (33.0-37.0) g/dL RDW 22.3 H 22.7 H (11.5-14.5) % Plt Count 126 L 122 L D (130-400) K/uL MPV 10.7 10.4 (7.2-11.7) fL Neut % (Auto) 83.9 H 86.6 H (50.0-75.0) % Lymph % (Auto) 7.0 L 2.7 L (20.0-40.0) % Campbell % (Auto) 8.7 10.1 H (0.0-10.0) % Eos % (Auto) 0.1 0.2 (0.0-4.0) % Baso % (Auto) 0.3 0.4 (0.0-2.0) % Neut # 13.4 H 16.3 H (1.8-7.0) K/uL Lymph # 1.1 0.5 L (1.0-4.3) K/uL Campbell # 1.4 H 1.9 H (0.0-0.8) K/uL Eos # 0.0 0.0 (0.0-0.7) K/uL Baso # 0.0 0.1 (0.0-0.2) K/uL Neutrophils % (Manual) 73 80 H (50-75) % Band Neutrophils % 9 H 8 H (0-2) % Lymphocytes % (Manual) 6 L 6 L (20-40) % Reactive Lymphs % 1 H (0-0) % Monocytes % (Manual) 10 6 (0-10) % Eosinophils % (Manual) 1 (0-4) % Platelet Estimate Slightly increased H Slightly decreased L (NORMAL) Large Platelets Present Polychromasia Slight Hypochromasia (manual) Slight Poikilocytosis (manual Slight Slight Anisocytosis (manual) Moderate Moderate Macrocytosis (manual) Moderate Moderate Target Cells Slight Slight Tear Drop Cells Slight Orin Cells Slight Puncture Site Rr pCO2 25 L (35-45) mm/Hg pO2 60 L (80-100) mm/Hg HCO3 16.9 L (21-28) mmol/L ABG pH 7.36 (7.35-7.45) ABG Total CO2 14.9 L (22-28) mmol/L ABG O2 Saturation 95.6 (95-98) % ABG Base Excess -10.2 L (-2.0-3.0) mmol/L ABG Hemoglobin 8.1 L (11.7-17.4) g/dL ABG Carboxyhemoglobin 2.2 H (0.5-1.5) % POC ABG HHb (Measured) 4.2 (0.0-5.0) % ABG Methemoglobin 1.4 (0.0-3.0) % Billy Test Pos A-a O2 Difference 337.0 mm/Hg Respiratory Index 5.6 Hgb O2 Saturation 92.2 L (95.0-98.0) % Mechanical Rate 16 FiO2 60.0 % Tidal Volume 500 PEEP 5 Sodium 146 147 (132-148) mmol/L Potassium 3.9 4.5 (3.6-5.2) mmol/L Chloride 114 H 117 H (98-107) mmol/L Carbon Dioxide 17 L 11 L* (22-30) mmol/L Anion Gap 19 24 H (10-20) BUN 67 H 55 H (7-17) mg/dL Creatinine 4.0 H 3.7 H (0.7-1.2) MG/DL Est GFR ( Amer) 14 15 Est GFR (Non-Af Amer) 11 13 Random Glucose 116 H 126 H (65-105) mg/dL Calcium 7.2 L 7.7 L (8.6-10.4) mg/dl Phosphorus 3.4 4.0 (2.5-4.5) mg/dL Magnesium 1.7 1.7 (1.6-2.3) mg/dL Total Bilirubin 3.7 H 4.6 H (0.2-1.3) mg/dL AST 140 H D 229 H (14-36) U/L ALT 170 H D 225 H (9-52) U/L Alkaline Phosphatase 109 113 (38-126) U/L Total Protein 5.2 L 5.9 L (6.3-8.3) g/dL Albumin 2.0 L 2.1 L (3.5-5.0) g/dL Globulin 3.2 3.8 (2.2-3.9) gm/dL Albumin/Globulin Ratio 0.6 L 0.6 L (1.0-2.1) Alpha Fetoprotein 6.0 (0.0-7.5) ng/mL Blood Type Blood Type Confirm Antibody Screen 12/31/16 Range/Units 08:43 WBC (4.8-10.8) K/uL RBC (3.80-5.20) Mil/uL Hgb (11.0-16.0) g/dL Hct (34.0-47.0) % MCV (81.0-99.0) fL MCH (27.0-31.0) pg MCHC (33.0-37.0) g/dL RDW (11.5-14.5) % Plt Count (130-400) K/uL MPV (7.2-11.7) fL Neut % (Auto) (50.0-75.0) % Lymph % (Auto) (20.0-40.0) % Campbell % (Auto) (0.0-10.0) % Eos % (Auto) (0.0-4.0) % Baso % (Auto) (0.0-2.0) % Neut # (1.8-7.0) K/uL Lymph # (1.0-4.3) K/uL Campbell # (0.0-0.8) K/uL Eos # (0.0-0.7) K/uL Baso # (0.0-0.2) K/uL Neutrophils % (Manual) (50-75) % Band Neutrophils % (0-2) % Lymphocytes % (Manual) (20-40) % Reactive Lymphs % (0-0) % Monocytes % (Manual) (0-10) % Eosinophils % (Manual) (0-4) % Platelet Estimate (NORMAL) Large Platelets Polychromasia Hypochromasia (manual) Poikilocytosis (manual Anisocytosis (manual) Macrocytosis (manual) Target Cells Tear Drop Cells Orin Cells Puncture Site pCO2 (35-45) mm/Hg pO2 (80-100) mm/Hg HCO3 (21-28) mmol/L ABG pH (7.35-7.45) ABG Total CO2 (22-28) mmol/L ABG O2 Saturation (95-98) % ABG Base Excess (-2.0-3.0) mmol/L ABG Hemoglobin (11.7-17.4) g/dL ABG Carboxyhemoglobin (0.5-1.5) % POC ABG HHb (Measured) (0.0-5.0) % ABG Methemoglobin (0.0-3.0) % Billy Test A-a O2 Difference mm/Hg Respiratory Index Hgb O2 Saturation (95.0-98.0) % Mechanical Rate FiO2 % Tidal Volume PEEP Sodium (132-148) mmol/L Potassium (3.6-5.2) mmol/L Chloride (98-107) mmol/L Carbon Dioxide (22-30) mmol/L Anion Gap (10-20) BUN (7-17) mg/dL Creatinine (0.7-1.2) MG/DL Est GFR ( Amer) Est GFR (Non-Af Amer) Random Glucose (65-105) mg/dL Calcium (8.6-10.4) mg/dl Phosphorus (2.5-4.5) mg/dL Magnesium (1.6-2.3) mg/dL Total Bilirubin (0.2-1.3) mg/dL AST (14-36) U/L ALT (9-52) U/L Alkaline Phosphatase (38-126) U/L Total Protein (6.3-8.3) g/dL Albumin (3.5-5.0) g/dL Globulin (2.2-3.9) gm/dL Albumin/Globulin Ratio (1.0-2.1) Alpha Fetoprotein (0.0-7.5) ng/mL Blood Type B POSITIVE Blood Type Confirm B POSITIVE Antibody Screen Negative Laboratory Results - last 24 hr 12/31/16 12/31/16 01/01/17 08:43 14:20 05:09 WBC 18.9 H D RBC 2.85 L Hgb 9.3 L Hct 29.4 L MCV 103.2 H MCH 32.8 H MCHC 31.8 L RDW 22.7 H Plt Count 122 L D MPV 10.4 Neut % (Auto) 86.6 H Lymph % (Auto) 2.7 L Campbell % (Auto) 10.1 H Eos % (Auto) 0.2 Baso % (Auto) 0.4 Neut # 16.3 H Lymph # 0.5 L Campbell # 1.9 H Eos # 0.0 Baso # 0.1 Neutrophils % (Manual) 80 H Band Neutrophils % 8 H Lymphocytes % (Manual) 6 L Reactive Lymphs % Monocytes % (Manual) 6 Eosinophils % (Manual) Platelet Estimate Slightly decreased L Large Platelets Polychromasia Slight Hypochromasia (manual) Slight Poikilocytosis (manual Slight Anisocytosis (manual) Moderate Macrocytosis (manual) Moderate Target Cells Slight Tear Drop Cells Slight Orin Cells Slight Puncture Site Rr pCO2 25 L pO2 60 L HCO3 16.9 L ABG pH 7.36 ABG Total CO2 14.9 L ABG O2 Saturation 95.6 ABG Base Excess -10.2 L ABG Hemoglobin 8.1 L ABG Carboxyhemoglobin 2.2 H POC ABG HHb (Measured) 4.2 ABG Methemoglobin 1.4 Billy Test Pos A-a O2 Difference 337.0 Respiratory Index 5.6 Hgb O2 Saturation 92.2 L Mechanical Rate 16 FiO2 60.0 Tidal Volume 500 PEEP 5 Sodium 147 Potassium 4.5 Chloride 117 H Carbon Dioxide 11 L* Anion Gap 24 H BUN 55 H Creatinine 3.7 H Est GFR ( Amer) 15 Est GFR (Non-Af Amer) 13 Random Glucose 126 H Calcium 7.7 L Phosphorus 4.0 Magnesium 1.7 Total Bilirubin 4.6 H AST 229 H ALT 225 H Alkaline Phosphatase 113 Total Protein 5.9 L Albumin 2.1 L Globulin 3.8 Albumin/Globulin Ratio 0.6 L Alpha Fetoprotein Blood Type B POSITIVE Blood Type Confirm B POSITIVE Antibody Screen Negative 01/01/17 05:59 WBC 15.9 H RBC 2.50 L Hgb 8.0 L Hct 25.2 L MCV 101.0 H D MCH 31.9 H MCHC 31.6 L RDW 22.3 H Plt Count 126 L MPV 10.7 Neut % (Auto) 83.9 H Lymph % (Auto) 7.0 L Campbell % (Auto) 8.7 Eos % (Auto) 0.1 Baso % (Auto) 0.3 Neut # 13.4 H Lymph # 1.1 Campbell # 1.4 H Eos # 0.0 Baso # 0.0 Neutrophils % (Manual) 73 Band Neutrophils % 9 H Lymphocytes % (Manual) 6 L Reactive Lymphs % 1 H Monocytes % (Manual) 10 Eosinophils % (Manual) 1 Platelet Estimate Slightly increased H Large Platelets Present Polychromasia Hypochromasia (manual) Poikilocytosis (manual Slight Anisocytosis (manual) Moderate Macrocytosis (manual) Moderate Target Cells Slight Tear Drop Cells [place] Cells Puncture Site pCO2 pO2 HCO3 ABG pH ABG Total CO2 ABG O2 Saturation ABG Base Excess ABG Hemoglobin ABG Carboxyhemoglobin POC ABG HHb (Measured) ABG Methemoglobin Billy Test A-a O2 Difference Respiratory Index Hgb O2 Saturation Mechanical Rate FiO2 Tidal Volume PEEP Sodium 146 Potassium 3.9 Chloride 114 H Carbon Dioxide 17 L Anion Gap 19 BUN 67 H Creatinine 4.0 H Est GFR ( Amer) 14 Est GFR (Non-Af Amer) 11 Random Glucose 116 H Calcium 7.2 L Phosphorus 3.4 Magnesium 1.7 Total Bilirubin 3.7 H AST 140 H D ALT 170 H D Alkaline Phosphatase 109 Total Protein 5.2 L Albumin 2.0 L Globulin 3.2 Albumin/Globulin Ratio 0.6 L Alpha Fetoprotein 6.0 Blood Type Blood Type Confirm Antibody Screen Attending/Attestation - Attestation I have personally seen and examined this patient.: Yes I have fully participated in the care of the patient.: Yes I have reviewed all pertinent clinical information: Yes Notes (Text): Today: December The Patient was seen and examined at the bedside, Medical records reviewed, all clinical/lab/hemodynamic/radiographic data were reviewed and management issues were discussed and formulated, Events reviewed Pain issues, skin care, head of the bed elevation, glycemic control were addressed. 61 Y/O critically sick F with HTN, lupus, pulmonary hypertension, heart failure with AICD, CVA with left sided deficit, and acute hypoxic respiratory failure / severe sepsis from PNA possible aspiration and now acute kidney injury. Will start sedation vacation and assess mental status when she hemodynamics acceptable, Wean off fio2 Wean off Norepinephrine for MAP 65-75 Continue current antibiotics with Cefepime 2 gm IVPB Q24H LINN, Azithromycin 250 mg IVPB DAILY LINN Continue Plaquenil 200 mg po BID Decrease Milrinone to 0.375 MCG/KG/MIN Wean vent as tolerated Continue TF Monitor I&O GI/ DVT PPx: Heparin 5000 U SC Q8H; Pepcid 20 mg po daily Code: full Agree with above treatment plans as transcribed in Dr. Echeverria note CC Time spent 70 minutes
[2017-01-01] MEDS: Sodium Bicarbonate 8.4% 100 MEQ in Dextrose 5% In Water 900 ML IV SCH ×3 (01:53→17:38)
[2017-01-01 05:18] LABS: ABG ALLEN TEST POS; ABG MECHANICAL RATE 16; ARTERIAL BLOOD HGB O2 SAT 92.2 % (95.0-98.0); ATERIAL BLOOD GAS PEEP 5; CARBOXYHEMOGLOBIN 2.2 % (0.5-1.5); DRAW SITE RR; HHB 4.2 % (0.0-5.0); METHEMOGLOBIN 1.4 % (0.0-3.0)
[2017-01-01 06:09] LABS: BASO % 0.3 % (0.0-2.0); EOS % 0.1 % (0.0-4.0); HEMATOCRIT 25.2 % (34.0-47.0); LYMPH # 1.1 K/uL (1.0-4.3); MEAN CORPUSCULAR HEMOGLOBIN 31.9 pg (27.0-31.0); MEAN CORPUSCULAR HGB CONC 31.6 g/dL (33.0-37.0); MEAN PLATELET VOLUME 10.7 fL (7.2-11.7); MONO # 1.4 K/uL (0.0-0.8); MONO % 8.7 % (0.0-10.0); NRBC % 0.1 % (0.0-2.0); PLATELET COUNT 126 K/uL (130-400); RED CELL DISTRIBUTION WIDTH 22.3 % (11.5-14.5); WHITE BLOOD COUNT 15.9 K/uL (4.8-10.8)
[2017-01-01 06:26] LABS: POTASSIUM 3.9 mmol/L (3.6-5.2)
[2017-01-01 06:28] LABS: ALB/GLOB RATIO 0.6 (1.0-2.1); BILIRUBIN,TOTAL 3.7 mg/dL (0.2-1.3); PHOSPHOROUS 3.4 mg/dL (2.5-4.5); TOTAL PROTEIN 5.2 g/dL (6.3-8.3)
[2017-01-01 06:29] LABS: CALCIUM 7.2 mg/dl (8.6-10.4); MAGNESIUM 1.7 mg/dL (1.6-2.3)
--- NOTE | 2017-01-01 08:25 | CP.CCUPN ---
<Stephanie Echeverria - Last Filed: 01/01/17 21:55> CCU Subjective - Physician Review Subjective (Free Text): 12/28/16 20:48 Patient seen and examined at bedside. No acute distress. No acute events overnight per nursing. Patient back on AC/PRVC. Patient's persistent low BP halted attempts at a weaning trial. Patient able to follow commands. 12/29/16 15:52 Patient seen and examined at bedside. Per nursing decreased urine output. Patient began Milrinone drip yesterday at 0.5 mcg/kg/mi. Bp remains hypotensive but stable. 12/30/16 17:37 Patient seen and examined at bedside in no acute distress. Pt is intubated, on Milrinone drip, still low urine output . BP improved. Unable to obtain ROS at this point due to sedation. 12/31/16 18:19 Pt seen and examined at bedside . Patient's presentation appears to be worsening. Pt is intubated with continued low urine output. Current presentation as well as prognosis discussed with family members ( son and daughter-in law). Unable to obtain ROS at this time due to sedation. 01/01/17 08:26 Pt seen and examined at bedside . Patient's presentation remains the same. Pt is intubated with continued low urine output. Unable to obtain ROS at this time due to sedation. Prognosis discusses with son who wants full code status to remain. 01/01/17 22:03 CCU Objective - Vital Signs / Intake & Output Vital Signs (Last 4 hours): Vital Signs Temp Pulse Resp BP Pulse Ox 01/01/17 07:07 121 H 29 H 94/50 L 97 01/01/17 07:00 122 H 29 H 97 01/01/17 06:52 121 H 29 H 103/52 L 97 01/01/17 06:37 124 H 31 H 110/57 L 95 01/01/17 06:26 124 H 28 H 97 01/01/17 06:22 124 H 31 H 106/52 L 96 01/01/17 06:08 116 H 23 92 L 01/01/17 06:00 122 H 32 H 95 01/01/17 05:52 121 H 30 H 99/43 L 96 01/01/17 05:46 121 H 29 H 96 01/01/17 05:37 123 H 31 H 105/55 L 94 L 01/01/17 05:30 98.9 F 01/01/17 05:22 121 H 24 98/51 L 96 01/01/17 05:07 120 H 30 H 103/53 L 96 01/01/17 05:00 120 H 30 H 96 01/01/17 04:52 121 H 28 H 100/52 L 97 01/01/17 04:37 122 H 30 H 109/58 L 94 L Intake and Output (Last 8hrs): Intake & Output 12/31/16 01/01/17 01/01/17 22:59 06:59 14:59 Intake Total 1282.7 1116.9 128.7 Output Total 180 525 0 Balance 1102.7 591.9 128.7 Weight 125 lb Intake: Intake, IV Amount 1282.7 1116.9 128.7 Right Proximal Port 32.3 40.8 5.1 Internal Jugular Right Medial Port 50.4 50.4 6.3 Internal Jugular Right Distal Port 600 600 75 Internal Jugular Right Distal Port 600 425.7 42.3 Tube Feeding 0 0 0 Output: Urine 180 225 0 Urethral (Brunner) 180 225 0 Other 300 Other: # Bowel Movements 0 0 - Physical Exam Head: Positive for: Atraumatic, Normocephalic Pupils: Positive for: PERRL Extroacular Muscles: Positive for: EOMI Conjunctiva: Positive for: Normal Mouth: Positive for: Moist Mucous Membranes Pharnyx: Positive for: Other (intubated, OG tube) Respiratory/Chest: Positive for: Good Air Exchange, Other (intubated) Cardiovascular: Positive for: Normal S1, S2. Negative for: Murmurs Abdomen: Positive for: Normal Bowel Sounds. Negative for: Tenderness, Distention Upper Extremity: Positive for: Other (scratches to upper extremities noted) Lower Extremity: Positive for: Other (1+ pitting edema to bilateral lower extremities ) Neurological: Positive for: Other (responsive to pain, corneal reflex, gag and cough reflexes intact, pupils reactive to light) Skin: Positive for: Warm, Dry Psychiatric: Positive for: Alert - Medications Active Medications: Active Medications Generic Name Dose Route Start Last Admin Trade Name Freq PRN Reason Stop Dose Admin Emollient Ointment 5 gm 12/27/16 21:16 12/31/16 01:23 Vaseline Oint TOP 5 gm QID PRN Administration Hydroxychloroquine Sulfate 200 mg 12/23/16 10:00 12/31/16 17:46 Plaquenil PO 200 mg BID LINN Administration Azithromycin 500 mg/ Sodium 250 mls @ 250 mls/hr 12/23/16 10:00 12/31/16 10:45 Chloride IVPB 250 mls/hr DAILY LINN Administration Propofol 100 mls @ 1.71 mls/hr 12/25/16 11:07 12/31/16 20:45 Diprivan IV 15 mcg/kg/min .Q24H PRN Titration TITRATE PER MD ORDER Protocol 5 MCG/KG/MIN Cefepime HCl 100 mls @ 100 mls/hr 12/29/16 10:00 12/31/16 10:44 Maxipime Iv 2 Gm Premix IVPB 01/03/17 10:01 100 mls/hr Q24H LINN Administration Sodium Bicarbonate 100 meq/ 1,000 mls @ 75 mls/hr 12/31/16 11:00 01/01/17 01:53 Dextrose IV 75 mls/hr .[id number] LINN Administration Milrinone Lactate/Dextrose 20 100 mls @ 6.3 mls/hr 12/31/16 11:58 12/31/16 19: 57 mg/ Dextrose IV 6.3 mls/hr .[id number] LINN Administration 0.375 MCG/KG/MIN Norepinephrine Bitartrate 8 mg 258 mls @ 38.7 mls/hr 12/31/16 22:46 01/01/17 05 :40 / Sodium Chloride IV 22 mcg/min .[id number] PRN Titration TITRATE PER MD ORDER Protocol 20 MCG/MIN Lorazepam 1 mg 12/31/16 10:32 12/31/16 16:40 Ativan IVP 1 mg Q6H PRN Administration Anxiety Pantoprazole Sodium 40 mg 12/30/16 10:00 12/31/16 10:24 Protonix Inj IVP 40 mg DAILY LINN Administration - Patient Studies Lab Studies: Microbiology Studies 12/30/16 13:00 Mycobacterial Culture - Preliminary Other: Please Indicate Lab Studies 01/01/17 01/01/17 12/31/16 Range/Units 05:59 05:09 14:20 WBC 15.9 H 18.9 H D (4.8-10.8) K/uL RBC 2.50 L 2.85 L (3.80-5.20) Mil/uL Hgb 8.0 L 9.3 L (11.0-16.0) g/dL Hct 25.2 L 29.4 L (34.0-47.0) % MCV 101.0 H D 103.2 H (81.0-99.0) fL MCH 31.9 H 32.8 H (27.0-31.0) pg MCHC 31.6 L 31.8 L (33.0-37.0) g/dL RDW 22.3 H 22.7 H (11.5-14.5) % Plt Count 126 L 122 L D (130-400) K/uL MPV 10.7 10.4 (7.2-11.7) fL Neut % (Auto) 83.9 H 86.6 H (50.0-75.0) % Lymph % (Auto) 7.0 L 2.7 L (20.0-40.0) % Rolette % (Auto) 8.7 10.1 H (0.0-10.0) % Eos % (Auto) 0.1 0.2 (0.0-4.0) % Baso % (Auto) 0.3 0.4 (0.0-2.0) % Neut # 13.4 H 16.3 H (1.8-7.0) K/uL Lymph # 1.1 0.5 L (1.0-4.3) K/uL Rolette # 1.4 H 1.9 H (0.0-0.8) K/uL Eos # 0.0 0.0 (0.0-0.7) K/uL Baso # 0.0 0.1 (0.0-0.2) K/uL Neutrophils % (Manual) 80 H (50-75) % Band Neutrophils % 8 H (0-2) % Lymphocytes % (Manual) 6 L (20-40) % Monocytes % (Manual) 6 (0-10) % Eosinophils % (Manual) (0-4) % Toxic Granulation Platelet Estimate Slightly decreased L (NORMAL) Large Platelets Polychromasia Slight Hypochromasia (manual) Slight Poikilocytosis (manual Slight Anisocytosis (manual) Moderate Macrocytosis (manual) Moderate Target Cells Slight Tear Drop Cells Slight Orin Cells Slight Puncture Site Rr pCO2 25 L (35-45) mm/Hg pO2 60 L (80-100) mm/Hg HCO3 16.9 L (21-28) mmol/L ABG pH 7.36 (7.35-7.45) ABG Total CO2 14.9 L (22-28) mmol/L ABG O2 Saturation 95.6 (95-98) % ABG Base Excess -10.2 L (-2.0-3.0) mmol/L ABG Hemoglobin 8.1 L (11.7-17.4) g/dL ABG Carboxyhemoglobin 2.2 H (0.5-1.5) % POC ABG HHb (Measured) 4.2 (0.0-5.0) % ABG Methemoglobin 1.4 (0.0-3.0) % Billy Test Pos VBG pH (7.32-7.43) VBG pCO2 (40-60) mmHg VBG HCO3 mmol/L VBG Total CO2 (22-28) mmol/L VBG O2 Sat (Calc) (40-65) % VBG Base Excess (0.0-2.0) mmol/L VBG Potassium (3.6-5.2) mmol/L A-a O2 Difference 337.0 mm/Hg Respiratory Index 5.6 Hgb O2 Saturation 92.2 L (95.0-98.0) % Glucose (65-105) mg/dl Lactate (0.7-2.1) mmol/L Mechanical Rate 16 FiO2 60.0 % Tidal Volume 500 PEEP 5 Sodium 146 147 (132-148) mmol/L Potassium 3.9 4.5 (3.6-5.2) mmol/L Chloride 114 H 117 H (98-107) mmol/L Carbon Dioxide 17 L 11 L* (22-30) mmol/L Anion Gap 19 24 H (10-20) BUN 67 H 55 H (7-17) mg/dL Creatinine 4.0 H 3.7 H (0.7-1.2) MG/DL Est GFR ( Amer) 14 15 Est GFR (Non-Af Amer) 11 13 Random Glucose 116 H 126 H (65-105) mg/dL Calcium 7.2 L 7.7 L (8.6-10.4) mg/dl Phosphorus 3.4 4.0 (2.5-4.5) mg/dL Magnesium 1.7 1.7 (1.6-2.3) mg/dL Total Bilirubin 3.7 H 4.6 H (0.2-1.3) mg/dL AST 140 H D 229 H (14-36) U/L ALT 170 H D 225 H (9-52) U/L Alkaline Phosphatase 109 113 (38-126) U/L Total Protein 5.2 L 5.9 L (6.3-8.3) g/dL Albumin 2.0 L 2.1 L (3.5-5.0) g/dL Globulin 3.2 3.8 (2.2-3.9) gm/dL Albumin/Globulin Ratio 0.6 L 0.6 L (1.0-2.1) Alpha Fetoprotein 6.0 (0.0-7.5) ng/mL Venous Blood Potassium (3.6-5.2) mmol/L Stool Occult Blood (NEGATIVE) Blood Type Blood Type Confirm Antibody Screen 12/31/16 12/31/16 12/31/16 Range/Units 10:55 08:43 06:34 WBC (4.8-10.8) K/uL RBC (3.80-5.20) Mil/uL Hgb (11.0-16.0) g/dL Hct (34.0-47.0) % MCV (81.0-99.0) fL MCH (27.0-31.0) pg MCHC (33.0-37.0) g/dL RDW (11.5-14.5) % Plt Count (130-400) K/uL MPV (7.2-11.7) fL Neut % (Auto) (50.0-75.0) % Lymph % (Auto) (20.0-40.0) % Rolette % (Auto) (0.0-10.0) % Eos % (Auto) (0.0-4.0) % Baso % (Auto) (0.0-2.0) % Neut # (1.8-7.0) K/uL Lymph # (1.0-4.3) K/uL Rolette # (0.0-0.8) K/uL Eos # (0.0-0.7) K/uL Baso # (0.0-0.2) K/uL Neutrophils % (Manual) 77 H (50-75) % Band Neutrophils % 12 H* (0-2) % Lymphocytes % (Manual) 3 L (20-40) % Monocytes % (Manual) 7 (0-10) % Eosinophils % (Manual) 1 (0-4) % Toxic Granulation Present Platelet Estimate Decreased L (NORMAL) Large Platelets Present Polychromasia Hypochromasia (manual) Poikilocytosis (manual Slight Anisocytosis (manual) Moderate Macrocytosis (manual) Moderate Target Cells Slight Tear Drop Cells Gooding Cells Puncture Site pCO2 (35-45) mm/Hg pO2 43 (80-100) mm/Hg HCO3 (21-28) mmol/L ABG pH (7.35-7.45) ABG Total CO2 (22-28) mmol/L ABG O2 Saturation (95-98) % ABG Base Excess (-2.0-3.0) mmol/L ABG Hemoglobin (11.7-17.4) g/dL ABG Carboxyhemoglobin (0.5-1.5) % POC ABG HHb (Measured) (0.0-5.0) % ABG Methemoglobin (0.0-3.0) % Billy Test VBG pH 7.25 L (7.32-7.43) VBG pCO2 24 L (40-60) mmHg VBG HCO3 12.5 mmol/L VBG Total CO2 11.2 L (22-28) mmol/L VBG O2 Sat (Calc) 80.8 H (40-65) % VBG Base Excess -14.9 L (0.0-2.0) mmol/L VBG Potassium 4.5 (3.6-5.2) mmol/L A-a O2 Difference mm/Hg Respiratory Index Hgb O2 Saturation (95.0-98.0) % Glucose 115 H (65-105) mg/dl Lactate 1.2 (0.7-2.1) mmol/L Mechanical Rate FiO2 40.0 % Tidal Volume PEEP 5 Sodium 145.0 (132-148) mmol/L Potassium (3.6-5.2) mmol/L Chloride 126.0 H (98-107) mmol/L Carbon Dioxide (22-30) mmol/L Anion Gap (10-20) BUN (7-17) mg/dL Creatinine (0.7-1.2) MG/DL Est GFR ( Amer) Est GFR (Non-Af Amer) Random Glucose (65-105) mg/dL Calcium (8.6-10.4) mg/dl Phosphorus (2.5-4.5) mg/dL Magnesium (1.6-2.3) mg/dL Total Bilirubin (0.2-1.3) mg/dL AST (14-36) U/L ALT (9-52) U/L Alkaline Phosphatase (38-126) U/L Total Protein (6.3-8.3) g/dL Albumin (3.5-5.0) g/dL Globulin (2.2-3.9) gm/dL Albumin/Globulin Ratio (1.0-2.1) Alpha Fetoprotein (0.0-7.5) ng/mL Venous Blood Potassium 4.5 (3.6-5.2) mmol/L Stool Occult Blood Positive H (NEGATIVE) Blood Type B POSITIVE Blood Type Confirm B POSITIVE Antibody Screen Negative Laboratory Results - last 24 hr 12/31/16 12/31/16 12/31/16 06:34 08:43 10:55 WBC RBC Hgb Hct MCV MCH MCHC RDW Plt Count MPV Neut % (Auto) Lymph % (Auto) Rolette % (Auto) Eos % (Auto) Baso % (Auto) Neut # Lymph # Rolette # Eos # Baso # Neutrophils % (Manual) 77 H Band Neutrophils % 12 H* Lymphocytes % (Manual) 3 L Monocytes % (Manual) 7 Eosinophils % (Manual) 1 Toxic Granulation Present Platelet Estimate Decreased L Large Platelets Present Polychromasia Hypochromasia (manual) Poikilocytosis (manual Slight Anisocytosis (manual) Moderate Macrocytosis (manual) Moderate Target Cells Slight Tear Drop Cells Gooding Cells Puncture Site pCO2 pO2 43 HCO3 ABG pH ABG Total CO2 ABG O2 Saturation ABG Base Excess ABG Hemoglobin ABG Carboxyhemoglobin POC ABG HHb (Measured) ABG Methemoglobin Billy Test VBG pH 7.25 L VBG pCO2 24 L VBG HCO3 12.5 VBG Total CO2 11.2 L VBG O2 Sat (Calc) 80.8 H VBG Base Excess -14.9 L VBG Potassium 4.5 A-a O2 Difference Respiratory Index Hgb O2 Saturation Sodium 145.0 Chloride 126.0 H Glucose 115 H Lactate 1.2 Mechanical Rate FiO2 40.0 Tidal Volume PEEP 5 Potassium Carbon Dioxide Anion Gap BUN Creatinine Est GFR ( Amer) Est GFR (Non-Af Amer) Random Glucose Calcium Phosphorus Magnesium Total Bilirubin AST ALT Alkaline Phosphatase Total Protein Albumin Globulin Albumin/Globulin Ratio Alpha Fetoprotein Venous Blood Potassium 4.5 Stool Occult Blood Positive H Blood Type B POSITIVE Blood Type Confirm B POSITIVE Antibody Screen Negative 12/31/16 01/01/17 01/01/17 14:20 05:09 05:59 WBC 18.9 H D 15.9 H RBC 2.85 L 2.50 L Hgb 9.3 L 8.0 L Hct 29.4 L 25.2 L MCV 103.2 H 101.0 H D MCH 32.8 H 31.9 H MCHC 31.8 L 31.6 L RDW 22.7 H 22.3 H Plt Count 122 L D 126 L MPV 10.4 10.7 Neut % (Auto) 86.6 H 83.9 H Lymph % (Auto) 2.7 L 7.0 L Rolette % (Auto) 10.1 H 8.7 Eos % (Auto) 0.2 0.1 Baso % (Auto) 0.4 0.3 Neut # 16.3 H 13.4 H Lymph # 0.5 L 1.1 Rolette # 1.9 H 1.4 H Eos # 0.0 0.0 Baso # 0.1 0.0 Neutrophils % (Manual) 80 H Band Neutrophils % 8 H Lymphocytes % (Manual) 6 L Monocytes % (Manual) 6 Eosinophils % (Manual) Toxic Granulation Platelet Estimate Slightly decreased L Large Platelets Polychromasia Slight Hypochromasia (manual) Slight Poikilocytosis (manual Slight Anisocytosis (manual) Moderate Macrocytosis (manual) Moderate Target Cells Slight Tear Drop Cells Slight Orin Cells Slight Puncture Site Rr pCO2 25 L pO2 60 L HCO3 16.9 L ABG pH 7.36 ABG Total CO2 14.9 L ABG O2 Saturation 95.6 ABG Base Excess -10.2 L ABG Hemoglobin 8.1 L ABG Carboxyhemoglobin 2.2 H POC ABG HHb (Measured) 4.2 ABG Methemoglobin 1.4 Billy Test Pos VBG pH VBG pCO2 VBG HCO3 VBG Total CO2 VBG O2 Sat (Calc) VBG Base Excess VBG Potassium A-a O2 Difference 337.0 Respiratory Index 5.6 Hgb O2 Saturation 92.2 L Sodium 147 146 Chloride 117 H 114 H Glucose Lactate Mechanical Rate 16 FiO2 60.0 Tidal Volume 500 PEEP 5 Potassium 4.5 3.9 Carbon Dioxide 11 L* 17 L Anion Gap 24 H 19 BUN 55 H 67 H Creatinine 3.7 H 4.0 H Est GFR ( Amer) 15 14 Est GFR (Non-Af Amer) 13 11 Random Glucose 126 H 116 H Calcium 7.7 L 7.2 L Phosphorus 4.0 3.4 Magnesium 1.7 1.7 Total Bilirubin 4.6 H 3.7 H AST 229 H 140 H D ALT 225 H 170 H D Alkaline Phosphatase 113 109 Total Protein 5.9 L 5.2 L Albumin 2.1 L 2.0 L Globulin 3.8 3.2 Albumin/Globulin Ratio 0.6 L 0.6 L Alpha Fetoprotein 6.0 Venous Blood Potassium Stool Occult Blood Blood Type Blood Type Confirm Antibody Screen Fingerstick Blood Sugar Results: 105 Review of Systems - Review of Systems Review of Systems: as noted in subjective Assessment/Plan - Assessment and Plan (Free Text) Assessment: Pt is 61F with extensive medical history pertinent for lupus, heart failure with AICD, stroke with left-sided deficit, and HTN admitted to the ICU s/p agonal breathing requiring intubation on medical floor. Patient being treated for sepsis likely secondary to aspiration pneumonia. Patient metabolic status worsening secondary to underlying sepsis and worsening kidney function. Prognosis poor. Plan: Neuro: Sedated on Propofol (previously Versed), PRN Ativan Q6 History of CVA with residual weakness Head CT: No evidence of acute intracranial hemorrhage, acute territorial infarct , mass effect or midline shift. Moderate-size encephalomalacia at the left temporal parietal lobe suggestive of chronic left MCA territory infarct. Moderate atrophy and white matter changes. CVS: BP hypotensive CHF with EF noted to be 26% on previous echocardiogram- Milrinone dec to 0.375 mcg Repeat echo (12/22/16): LVEF <20%, LV is mildly dilated, LA is mildly dilated. Mild AR, moderate-severe MR, Moderate-severe pulmonary HTN. 12/28/[address] - Left-sided AICD. Cardiomegaly. Coronary artery calcifications. 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 Montelongo consulted - help appreciated Dopamine sitched to Levophed TLC in RIJ YOUSUF panel negative. Troponins 0.0240>0.0670>0.0830 Pulm: Intubated, monitor Vent settings adjusted accordingly 01/01/17 ABG: pCO2 25, pO2 60, HCO3 16.9, pH 7.36; 12/31/16 ABG: pCO2 20, pO2 101, HCO3 13.8, pH 7.32; VBG pH 7.25, pCO2 24, HCO3 12.5, Lactate 1.2. Worsening CO2 11, repeat check remained at 11- Bicarb drip started 12/31 Saturating 98% CXR- 01/01/17 - diffuse patchy hazy opacities increased from 12/31/16- GI consulted- dominguez cultures with reccs for bronc/lavage when stable- Abx on board AFB smear negative, culture pending D/C isolation for now; however may change pending studies Antibiotics as below GI: OG tube, receiving feeds Hepatitis panel negative, AMA negative (r/o PBC), Ceruloplasmin negative, LKM ab negative, Anti-SM - pending. GI will consider EUS if workup is negative and direct bili remains elevated. GI consulted - help appreciated Per GI, repeat U/S to assess for hepatorenal syndrome, cardiorenal syndrome and SBP. Change to PPI IV daily Pancreatic protocol CT (12/25/16) - Fatty infiltration of the liver, heterogeneous. Innumerable small enhancing nodules on portal venous phase images of the liver. Uncertain significance. Consider metastatic disease. Unlikely hepatocellular neoplasm. No evidence of pancreatitis or pancreatic mass. No biliary obstruction. Mild ascites. Small right and trace left pleural effusion with lower lobe compressive atelectasis. Permanent pacemaker. Nasogastric tube. Brunner catheter. T.bili of 9.5, Direct bili of 7.2, GGT 126, AST 126, ALT 79 on admission Continue to trend T.bili and LFTs - stabilizing - likely 2/[address] Abdomen and Pelvis w/o contrast (12/22/16): Small to moderate right pleural effusion. Trace ascites. Nonspecific presacral edema. Mild generalized anasarca. Mild hepatomegaly with fatty infiltration of the liver. No evidence of biliary obstruction. No evidence of cholecystitis. Mild nonspecific presacral edema, possibly related generalized anasarca. RUQ US (12/23/16): Right renal cysts. Incidental note is made of small right pleural effusion. Echogenic liver may be in setting of hepatic parenchymal disease or fatty infiltration. Small perihepatic ascites. Small fluid is noted by the gallbladder fossa. Gallbladder wall thickening/pericholecystic edema without evidence of gallstones. Negative sonographic Hutchinson's sign as assessed by the felt hat mellowing machine operator. No portal vein thrombosis. Heme: Hgb 8.0 Platelets improved to 126 Thrombocytopenia slowly improving Monitor Endo: T3 and T4 are low on admission with normal TSH TSH 1.34, T3 uptake >65.o, Free T4 0.87 Maintain euglycemia Rheumatology: History of lupus On plaquenil 200mg BID Folic acid 1mg PO daily IgG 1775.0 IgA 510.1 IgM 66.[address] Reynaga as outpatient Nephro: Poor GFR- Nephro ( Dr. Wong consulted) - Benefits of dialysis prompted HD catheter insertion today.- Monitor UTI: 12/26 culture positive for E.Coli, Abx as below 12/28/[address] - Limited visualization of the upper abdomen demonstrates numerous bilateral renal lesions, possibly cysts. Hyperdense 11 mm left upper pole exophytic lesion, indeterminate. Decreased urine output Increased IVF Trial Lasix 60mg once Monitor : monitor urine output Brunner in Maintenance fluids 75 cc/hr ID: Leukocytosis Possible aspiration pneumonia- on abx Hepatitis panel negative UTI, urine cx positive for E.coli Started Cefepime 2gm IVPB Q8H (12/24/16); On Azithromycin 500 mg IVPB daily, Micafungin F/U studies per ID Stool for C.diff - negative AFB smear negative x3; mycobacterium cultures pending Mycobacterial culture - pending D/c isolation Prophylaxis: Heparin 5000U SC Q8H Protonix 40 mg IV daily Palliative care consult placed- f/u <Volodymyr Beckman - Last Filed: 01/08/17 00:15> CCU Objective - Vital Signs / Intake & Output Intake and Output (Last 8hrs): Intake & Output 01/07/17 01/07/1701/08/17 14:59 22:59 06:59 Intake Total 1646.9 Output Total 10 Balance 1636.9 Intake: Intake, IV Amount 1466.9 Right Medial Port 435 Internal Jugular Right Distal Port 83.0 Internal Jugular Right Distal Port 281.5 Right Femoral 100 Right Internal Jugular 30.6 Right Medial Port 11.8 Right Distal Port Femoral 25 Left Femoral 100 Left Distal Port Femoral 400 Tube Feeding 0 Blood Product 175 Apheresis Rbc Cp2d As3 Lr 175 2nd Unit [id number] Other 5 Apheresis Rbc Cp2d As3 Lr 5 2nd Unit [id number] Output: Urine 10 Urethral (Brunner) 10 - Patient Studies Lab Studies: Microbiology Studies 12/30/16 13:00 Mycobacterial Culture - Preliminary Other: Please Indicate Lab Studies 01/07/17 01/07/17 01/07/17 Range/Units 10:36 09:18 08:29 WBC (4.8-10.8) K/uL RBC (3.80-5.20) Mil/uL Hgb (11.0-16.0) g/dL Hct (34.0-47.0) % MCV (81.0-99.0) fL MCH (27.0-31.0) pg MCHC (33.0-37.0) g/dL RDW (11.5-14.5) % Plt Count (130-400) K/uL MPV (7.2-11.7) fL Neut % (Auto) (50.0-75.0) % Lymph % (Auto) (20.0-40.0) % Rolette % (Auto) (0.0-10.0) % Eos % (Auto) (0.0-4.0) % Baso % (Auto) (0.0-2.0) % Neut # (1.8-7.0) K/uL Lymph # (1.0-4.3) K/uL Rolette # (0.0-0.8) K/uL Eos # (0.0-0.7) K/uL Baso # (0.0-0.2) K/uL Puncture Site pCO2 (35-45) mm/Hg pO2 (80-100) mm/Hg HCO3 (21-28) mmol/L ABG pH (7.35-7.45) ABG Total CO2 (22-28) mmol/L ABG O2 Saturation (95-98) % ABG Base Excess (-2.0-3.0) mmol/L ABG Hemoglobin (11.7-17.4) g/dL ABG Carboxyhemoglobin (0.5-1.5) % POC ABG HHb (Measured) (0.0-5.0) % ABG Methemoglobin (0.0-3.0) % Billy Test A-a O2 Difference mm/Hg Respiratory Index Hgb O2 Saturation (95.0-98.0) % Mechanical Rate FiO2 % Tidal Volume PEEP Crit Value Called To Crit Value Called By Crit Value Read Back Blood Gas Notified Time Sodium (132-148) mmol/L Potassium (3.6-5.2) mmol/L Chloride (98-107) mmol/L Carbon Dioxide (22-30) mmol/L Anion Gap (10-20) BUN (7-17) mg/dL Creatinine (0.7-1.2) MG/DL Est GFR ( Amer) Est GFR (Non-Af Amer) POC Glucose (mg/dL) 117 H 77 (65-110) mg/dL Random Glucose (65-105) mg/dL Calcium (8.6-10.4) mg/dl Phosphorus (2.5-4.5) mg/dL Magnesium (1.6-2.3) mg/dL Total Bilirubin (0.2-1.3) mg/dL AST (14-36) U/L ALT (9-52) U/L Alkaline Phosphatase (38-126) U/L Total Protein (6.3-8.3) g/dL Albumin (3.5-5.0) g/dL Globulin (2.2-3.9) gm/dL Albumin/Globulin Ratio (1.0-2.1) Blood Type B POSITIVE Antibody Screen Negative 01/07/17 01/07/17 01/07/17 Range/Units 08:02 06:31 06:25 WBC 41.9 H* (4.8-10.8) K/uL RBC 2.46 L (3.80-5.20) Mil/uL Hgb 7.6 L (11.0-16.0) g/dL Hct 25.5 L (34.0-47.0) % MCV 103.5 H (81.0-99.0) fL MCH 30.7 (27.0-31.0) pg MCHC 29.7 L (33.0-37.0) g/dL RDW 22.7 H (11.5-14.5) % Plt Count 16 L* D (130-400) K/uL MPV 9.9 (7.2-11.7) fL Neut % (Auto) 84.2 H (50.0-75.0) % Lymph % (Auto) 11.7 L (20.0-40.0) % Rolette % (Auto) 3.6 (0.0-10.0) % Eos % (Auto) 0.1 (0.0-4.0) % Baso % (Auto) 0.4 (0.0-2.0) % Neut # 35.3 H (1.8-7.0) K/uL Lymph # 4.9 H (1.0-4.3) K/uL Rolette # 1.5 H (0.0-0.8) K/uL Eos # 0.0 (0.0-0.7) K/uL Baso # 0.2 (0.0-0.2) K/uL Puncture Site pCO2 (35-45) mm/Hg pO2 (80-100) mm/Hg HCO3 (21-28) mmol/L ABG pH (7.35-7.45) ABG Total CO2 (22-28) mmol/L ABG O2 Saturation (95-98) % ABG Base Excess (-2.0-3.0) mmol/L ABG Hemoglobin (11.7-17.4) g/dL ABG Carboxyhemoglobin (0.5-1.5) % POC ABG HHb (Measured) (0.0-5.0) % ABG Methemoglobin (0.0-3.0) % Billy Test A-a O2 Difference mm/Hg Respiratory Index Hgb O2 Saturation (95.0-98.0) % Mechanical Rate FiO2 % Tidal Volume PEEP Crit Value Called To Crit Value Called By Crit Value Read Back Blood Gas Notified Time Sodium 136 (132-148) mmol/L Potassium 4.2 (3.6-5.2) mmol/L Chloride 96 L (98-107) mmol/L Carbon Dioxide 10 L* (22-30) mmol/L Anion Gap 34 H (10-20) BUN 16 (7-17) mg/dL Creatinine 2.2 H (0.7-1.2) MG/DL Est GFR ( Amer) 28 Est GFR (Non-Af Amer) 23 POC Glucose (mg/dL) 90 248 H (65-110) mg/dL Random Glucose 27 L* D (65-105) mg/dL Calcium 7.1 L (8.6-10.4) mg/dl Phosphorus 6.0 H (2.5-4.5) mg/dL Magnesium 2.1 (1.6-2.3) mg/dL Total Bilirubin 9.8 H (0.2-1.3) mg/dL AST 704 H D (14-36) U/L ALT 197 H D (9-52) U/L Alkaline Phosphatase 193 H D (38-126) U/L Total Protein 4.7 L (6.3-8.3) g/dL Albumin 1.6 L D (3.5-5.0) g/dL Globulin 3.1 (2.2-3.9) gm/dL Albumin/Globulin Ratio 0.5 L (1.0-2.1) Blood Type Antibody Screen 01/07/17 01/07/17 01/07/17 Range/Units 05:36 04:30 00:39 WBC (4.8-10.8) K/uL RBC (3.80-5.20) Mil/uL Hgb (11.0-16.0) g/dL Hct (34.0-47.0) % MCV (81.0-99.0) fL MCH (27.0-31.0) pg MCHC (33.0-37.0) g/dL RDW (11.5-14.5) % Plt Count (130-400) K/uL MPV (7.2-11.7) fL Neut % (Auto) (50.0-75.0) % Lymph % (Auto) (20.0-40.0) % Rolette % (Auto) (0.0-10.0) % Eos % (Auto) (0.0-4.0) % Baso % (Auto) (0.0-2.0) % Neut # (1.8-7.0) K/uL Lymph # (1.0-4.3) K/uL Rolette # (0.0-0.8) K/uL Eos # (0.0-0.7) K/uL Baso # (0.0-0.2) K/uL Puncture Site Rb pCO2 34 L (35-45) mm/Hg pO2 69 L (80-100) mm/Hg HCO3 9.1 L* (21-28) mmol/L ABG pH 7.03 L* (7.35-7.45) ABG Total CO2 10.0 L (22-28) mmol/L ABG O2 Saturation 97.7 (95-98) % ABG Base Excess -20.2 L (-2.0-3.0) mmol/L ABG Hemoglobin 7.5 L (11.7-17.4) g/dL ABG Carboxyhemoglobin 6.0 H (0.5-1.5) % POC ABG HHb (Measured) 2.1 (0.0-5.0) % ABG Methemoglobin 1.1 (0.0-3.0) % Billy Test Na A-a O2 Difference 602.0 mm/Hg Respiratory Index 8.7 Hgb O2 Saturation 90.8 L (95.0-98.0) % Mechanical Rate 26 FiO2 100.0 % Tidal Volume 550 PEEP 5 Crit Value Called To Marium cueva rn/ccu Crit Value Called By Moises haywood/rt Crit Value Read Back Y Blood Gas Notified Time 450 Sodium (132-148) mmol/L Potassium (3.6-5.2) mmol/L Chloride (98-107) mmol/L Carbon Dioxide (22-30) mmol/L Anion Gap (10-20) BUN (7-17) mg/dL Creatinine (0.7-1.2) MG/DL Est GFR ( Amer) Est GFR (Non-Af Amer) POC Glucose (mg/dL) 28 L* (65-110) mg/dL Random Glucose 65 (65-105) mg/dL Calcium (8.6-10.4) mg/dl Phosphorus (2.5-4.5) mg/dL Magnesium (1.6-2.3) mg/dL Total Bilirubin (0.2-1.3) mg/dL AST (14-36) U/L ALT (9-52) U/L Alkaline Phosphatase (38-126) U/L Total Protein (6.3-8.3) g/dL Albumin (3.5-5.0) g/dL Globulin (2.2-3.9) gm/dL Albumin/Globulin Ratio (1.0-2.1) Blood Type Antibody Screen 01/07/17 Range/Units 00:24 WBC (4.8-10.8) K/uL RBC (3.80-5.20) Mil/uL Hgb (11.0-16.0) g/dL Hct (34.0-47.0) % MCV (81.0-99.0) fL MCH (27.0-31.0) pg MCHC (33.0-37.0) g/dL RDW (11.5-14.5) % Plt Count (130-400) K/uL MPV (7.2-11.7) fL Neut % (Auto) (50.0-75.0) % Lymph % (Auto) (20.0-40.0) % Rolette % (Auto) (0.0-10.0) % Eos % (Auto) (0.0-4.0) % Baso % (Auto) (0.0-2.0) % Neut # (1.8-7.0) K/uL Lymph # (1.0-4.3) K/uL Rolette # (0.0-0.8) K/uL Eos # (0.0-0.7) K/uL Baso # (0.0-0.2) K/uL Puncture Site pCO2 (35-45) mm/Hg pO2 (80-100) mm/Hg HCO3 (21-28) mmol/L ABG pH (7.35-7.45) ABG Total CO2 (22-28) mmol/L ABG O2 Saturation (95-98) % ABG Base Excess (-2.0-3.0) mmol/L ABG Hemoglobin (11.7-17.4) g/dL ABG Carboxyhemoglobin (0.5-1.5) % POC ABG HHb (Measured) (0.0-5.0) % ABG Methemoglobin (0.0-3.0) % Billy Test A-a O2 Difference mm/Hg Respiratory Index Hgb O2 Saturation (95.0-98.0) % Mechanical Rate FiO2 % Tidal Volume PEEP Crit Value Called To Crit Value Called By Crit Value Read Back Blood Gas Notified Time Sodium (132-148) mmol/L Potassium (3.6-5.2) mmol/L Chloride (98-107) mmol/L Carbon Dioxide (22-30) mmol/L Anion Gap (10-20) BUN (7-17) mg/dL Creatinine (0.7-1.2) MG/DL Est GFR ( Amer) Est GFR (Non-Af Amer) POC Glucose (mg/dL) < 20 L* (65-110) mg/dL Random Glucose (65-105) mg/dL Calcium (8.6-10.4) mg/dl Phosphorus (2.5-4.5) mg/dL Magnesium (1.6-2.3) mg/dL Total Bilirubin (0.2-1.3) mg/dL AST (14-36) U/L ALT (9-52) U/L Alkaline Phosphatase (38-126) U/L Total Protein (6.3-8.3) g/dL Albumin (3.5-5.0) g/dL Globulin (2.2-3.9) gm/dL Albumin/Globulin Ratio (1.0-2.1) Blood Type Antibody Screen Laboratory Results - last 24 hr 01/07/17 01/07/17 01/07/17 00:24 00:39 04:30 WBC RBC Hgb Hct MCV MCH MCHC RDW Plt Count MPV Neut % (Auto) Lymph % (Auto) Rolette % (Auto) Eos % (Auto) Baso % (Auto) Neut # Lymph # Rolette # Eos # Baso # Puncture Site Rb pCO2 34 L pO2 69 L HCO3 9.1 L* ABG pH 7.03 L* ABG Total CO2 10.0 L ABG O2 Saturation 97.7 ABG Base Excess -20.2 L ABG Hemoglobin 7.5 L ABG Carboxyhemoglobin 6.0 H POC ABG HHb (Measured) 2.1 ABG Methemoglobin 1.1 Billy Test Na A-a O2 Difference 602.0 Respiratory Index 8.7 Hgb O2 Saturation 90.8 L Mechanical Rate 26 FiO2 100.0 Tidal Volume 550 PEEP 5 Crit Value Called To Marium cueva rn/ccu Crit Value Called By Moises haywood/rt Crit Value Read Back Y Blood Gas Notified Time 450 Sodium Potassium Chloride Carbon Dioxide Anion Gap BUN Creatinine Est GFR ( Amer) Est GFR (Non-Af Amer) POC Glucose (mg/dL) < 20 L* Random Glucose 65 Calcium Phosphorus Magnesium Total Bilirubin AST ALT Alkaline Phosphatase Total Protein Albumin Globulin Albumin/Globulin Ratio Blood Type Antibody Screen 01/07/17 01/07/17 01/07/17 05:36 06:25 06:31 WBC 41.9 H* RBC 2.46 L Hgb 7.6 L Hct 25.5 L MCV 103.5 H MCH 30.7 MCHC 29.7 L RDW 22.7 H Plt Count 16 L* D MPV 9.9 Neut % (Auto) 84.2 H Lymph % (Auto) 11.7 L Rolette % (Auto) 3.6 Eos % (Auto) 0.1 Baso % (Auto) 0.4 Neut # 35.3 H Lymph # 4.9 H Rolette # 1.5 H Eos # 0.0 Baso # 0.2 Puncture Site pCO2 pO2 HCO3 ABG pH ABG Total CO2 ABG O2 Saturation ABG Base Excess ABG Hemoglobin ABG Carboxyhemoglobin POC ABG HHb (Measured) ABG Methemoglobin Billy Test A-a O2 Difference Respiratory Index Hgb O2 Saturation Mechanical Rate FiO2 Tidal Volume PEEP Crit Value Called To Crit Value Called By Crit Value Read Back Blood Gas Notified Time Sodium 136 Potassium 4.2 Chloride 96 L Carbon Dioxide 10 L* Anion Gap 34 H BUN 16 Creatinine 2.2 H Est GFR ( Amer) 28 Est GFR (Non-Af Amer) 23 POC Glucose (mg/dL) 28 L* 248 H Random Glucose 27 L* D Calcium 7.1 L Phosphorus 6.0 H Magnesium 2.1 Total Bilirubin 9.8 H AST 704 H D ALT 197 H D Alkaline Phosphatase 193 H D Total Protein 4.7 L Albumin 1.6 L D Globulin 3.1 Albumin/Globulin Ratio 0.5 L Blood Type Antibody Screen 01/07/17 01/07/1717 08:02 08:29 09:18 WBC RBC Hgb Hct MCV MCH MCHC RDW Plt Count MPV Neut % (Auto) Lymph % (Auto) Rolette % (Auto) Eos % (Auto) Baso % (Auto) Neut # Lymph # Rolette # Eos # Baso # Puncture Site pCO2 pO2 HCO3 ABG pH ABG Total CO2 ABG O2 Saturation ABG Base Excess ABG Hemoglobin ABG Carboxyhemoglobin POC ABG HHb (Measured) ABG Methemoglobin Billy Test A-a O2 Difference Respiratory Index Hgb O2 Saturation Mechanical Rate FiO2 Tidal Volume PEEP Crit Value Called To Crit Value Called By Crit Value Read Back Blood Gas Notified Time Sodium Potassium Chloride Carbon Dioxide Anion Gap BUN Creatinine Est GFR ( Amer) Est GFR (Non-Af Amer) POC Glucose (mg/dL) 90 77 Random Glucose Calcium Phosphorus Magnesium Total Bilirubin AST ALT Alkaline Phosphatase Total Protein Albumin Globulin Albumin/Globulin Ratio Blood Type B POSITIVE Antibody Screen Negative 01/07/17 10:36 WBC RBC Hgb Hct MCV MCH MCHC RDW Plt Count MPV Neut % (Auto) Lymph % (Auto) Rolette % (Auto) Eos % (Auto) Baso % (Auto) Neut # Lymph # Rolette # Eos # Baso # Puncture Site pCO2 pO2 HCO3 ABG pH ABG Total CO2 ABG O2 Saturation ABG Base Excess ABG Hemoglobin ABG Carboxyhemoglobin POC ABG HHb (Measured) ABG Methemoglobin Billy Test A-a O2 Difference Respiratory Index Hgb O2 Saturation Mechanical Rate FiO2 Tidal Volume PEEP Crit Value Called To Crit Value Called By Crit Value Read Back Blood Gas Notified Time Sodium Potassium Chloride Carbon Dioxide Anion Gap BUN Creatinine Est GFR ( Amer) Est GFR (Non-Af Amer) POC Glucose (mg/dL) 117 H Random Glucose Calcium Phosphorus Magnesium Total Bilirubin AST ALT Alkaline Phosphatase Total Protein Albumin Globulin Albumin/Globulin Ratio Blood Type Antibody Screen Attending/Attestation - Attestation I have personally seen and examined this patient.: Yes I have fully participated in the care of the patient.: Yes I have reviewed all pertinent clinical information: Yes Notes (Text): Today: Sunday, January 01, 2017 The Patient was seen and examined at the bedside, Medical records reviewed, all clinical/lab/hemodynamic/radiographic data were reviewed and management issues were discussed and formulated, Events reviewed Pain issues, skin care, head of the bed elevation, glycemic control were addressed Agree with above treatment plans as transcribed in Dr. Echeverria note Patient with worsening renal function, after obtaining informed consent from son over the phone, under complete sterile technique HD access placed right femoral vein, Aseptic technique was employed throughout the procedure: Hand Hygiene done prior to procedure, Full sterile barriers (mask, hair cover, sterile gown, sterile gloves), Full body sterile drape, Chloraprep Antiseptic: 2 minute prep for Femoral CVP Time Out Performed: Yes Pt. Placed on Pulse Ox Monitor: Yes Central Line Prep: Chlorhexidine-Alcohol Combination Local Anesthesia Used: Lidocaine 1% Amount of Anesthesia Used (mls): 10 Ultrasound Used for Placement: Yes Central Line Lumen Inserted: Post Procedure: Sutured in Place, Good Blood Return, All Ports Aspirated, Flushed, Capped, Sterile Dressing Applied Secured by: Suture Post procedure dressing: Chlorhexidine disc (Biopatch) Patient Tolerated Procedure: Well Immediate Complications: None
[2017-01-01 08:28] LABS: EOSINOPHIL 1 % (0-4); NEUTROPHIL 73 % (50-75); REACTIVE LYMPHOCYTES 1 % (0-0); TOTAL CELLS COUNTED 100
[2017-01-01 08:29] LABS: LARGE PLATELETS PRESENT
[2017-01-01] MEDS: Milrinone 20 MG in Dextrose 5% In Water 80 ML IV SCH (08:35)
--- NOTE | 2017-01-01 08:48 | CP.PCM.PN ---
Subjective - Date & Time of Evaluation Date of Evaluation: 01/01/17 Time of Evaluation: 07:55 - Subjective Subjective: Cardiology progress note for Dr Montelongo. Patient is intubated and sedated on propofol. Patient mildly responsive with chest rub. Sinus tachycardia on monitor. Afebrile. Objective - Vital Signs/Intake and Output Vital Signs (last 24 hours): On PRVC @ 60% fio2. Temp Pulse Resp BP Pulse Ox 98.9 F 121 H 29 H 94/50 L 97 01/01/17 05:30 01/01/17 07:07 01/01/17 07:07 01/01/17 07:07 01/01/17 07:07 Intake and Output: 01/01/17 01/01/17 06:59 18:59 Intake Total 1760.8 128.7 Output Total 600 0 Balance 1160.8 128.7 - Medications Medications: Current Medications Emollient Ointment (Vaseline Oint) 5 gm TOP QID PRN Last Admin: 12/31/16 01:23 Dose: 5 gm Hydroxychloroquine Sulfate (Plaquenil) 200 mg PO BID [facility] Last Admin: 12/31/16 17:46 Dose: 200 mg Azithromycin 500 mg/ Sodium (Chloride) 250 mls @ 250 mls/hr IVPB DAILY [facility] Last Admin: 12/31/16 10:45 Dose: 250 mls/hr Propofol (Diprivan) 100 mls @ 1.71 mls/hr IV .Q24H PRN; Protocol; 5 MCG/KG/MIN PRN Reason: TITRATE PER MD ORDER Last Titration: 12/31/16 20:45 Dose: 15 mcg/kg/min Cefepime HCl (Maxipime Iv 2 Gm Premix) 100 mls @ 100 mls/hr IVPB Q24H [facility] Stop: 01/03/17 10:01 Last Admin: 12/31/16 10:44 Dose: 100 mls/hr Sodium Bicarbonate 100 meq/ (Dextrose) 1,000 mls @ 75 mls/hr IV .[id number] [facility] Last Admin: 01/01/17 01:53 Dose: 75 mls/hr Milrinone Lactate/Dextrose 20 (mg/ Dextrose) 100 mls @ 6.3 mls/hr IV .[id number] [facility] PRN Reason: 0.375 MCG/KG/MIN Last Admin: 12/31/16 19:57 Dose: 6.3 mls/hr Norepinephrine Bitartrate 8 mg (/ Sodium Chloride) 258 mls @ 38.7 mls/hr IV .Q6H40M PRN; Protocol; 20 MCG/MIN PRN Reason: TITRATE PER MD ORDER Last Titration: 01/01/17 05:40 Dose: 22 mcg/min Lorazepam (Ativan) 1 mg IVP Q6H PRN PRN Reason: Anxiety Last Admin: 12/31/16 16:40 Dose: 1 mg Pantoprazole Sodium (Protonix Inj) 40 mg IVP DAILY [facility] Last Admin: 12/31/16 10:24 Dose: 40 mg - Labs Labs: 01/01/17 05:59 01/01/17 05:59 PT 17.7 SECONDS (9.7-12.2) H 12/30/16 10:43 INR 1.6 12/30/16 10:43 APTT 34 SECONDS (21-34) D 12/25/16 06:11 - Constitutional Appears: No Acute Distress, Cachectic, Chronically Ill - Head Exam Head Exam: ATRAUMATIC, NORMAL INSPECTION, NORMOCEPHALIC - Eye Exam Eye Exam: Normal appearance - ENT Exam ENT Exam: Mucous Membranes Moist Additional comments: ETT in place. - Respiratory Exam Respiratory Exam: Decreased Breath Sounds (at the bases. ), Prolonged Expiratory Phase. absent: Clear to Ausculation Bilateral, Rales, Rhonchi, Wheezes, Stridor - Cardiovascular Exam Cardiovascular Exam: Tachycardia, REGULAR RHYTHM, RRR, +S1, +S2 - GI/Abdominal Exam GI & Abdominal Exam: Distended, Soft, Normal Bowel Sounds - Extremities Exam Extremities Exam: absent: Pedal Edema - Neurological Exam Additional comments: Intubated and sedated on propofol. - Skin Skin Exam: Diaphoretic, Warm Assessment and Plan - Assessment and Plan (Free Text) Assessment: 61 y/o with PMH of Lupus, dilated cardiomyopathy s/p ICD, CVA with left sided residue, htn admitted with: 1) Hypoxemic respiratory failure 2nd to HAP/CHF exacerbation LVEF of 20% with mod-severe pulm htn on echo- s/p ICD interrogation 2) Septic shock-back on levophed drip. 3) Ecoli UTI 4) Transaminitis 5) VERONICA 6) Thrombocytopenia- r/o HIT 7) macrocytic Anemia 8) Metabolic acidosis with respiratory alkalosis. Plan: - ICD interrogated, Normal except the ICD has low battery life and will need to be replaced once patient is medically stable. - Patient is back on levophed drip, still on milrinone drip. - Patient is also on cefepime and zithromax for broadspectrum coverage. - On plaquenil for lupus. - On protonix for gi prophylaxis. - SCD for dvt prophylaxis. - Gi and renal following, - In ICU, still intubated and sedated. Patient seen, examined, will discuss with Dr Montelongo.
[2017-01-01] MEDS: Azithromycin 500 MG in Sodium Chloride 0.9% 250 ML IVPB SCH (09:55)
[2017-01-01] MEDS: Cefepime IV 2 gm in Dextrose 100 ML IVPB SCH (10:06)
--- NOTE | 2017-01-01 10:21 | RAD ---
HISTORY: intubated COMPARISON: 12/31/2016 FINDINGS: LUNGS: Diffuse patchy hazy opacities now throughout both lungs. PLEURA: No significant pleural effusion identified, no pneumothorax apparent. CARDIOVASCULAR: Stable cardiomediastinal silhouette. OSSEOUS STRUCTURES: The osseous structures demonstrate degenerative changes. VISUALIZED UPPER ABDOMEN: Upper abdomen is suboptimally evaluated. OTHER FINDINGS: ET tube with the distal tip above the tracheal bifurcation. Feeding tube with the distal tip not seen but coursing below the diaphragm. IMPRESSION: Diffuse patchy hazy opacities, not throughout both lungs. This has increased in extent since the prior radiograph from 12/31/2016 where the opacity was predominantly seen in the right upper lobe.
--- NOTE | 2017-01-01 13:24 | CP.PCM.PN ---
Subjective - Date & Time of Evaluation Date of Evaluation: 01/01/17 Time of Evaluation: 13:21 - Subjective Subjective: Events noted Could not initiate dialysis 12/31 due to hypotension Remains oliguric Creat increased to 4.0 Metabolic acidosis better with bicarb drip Remains on vent sedated CXR reveals increased CHF pattern Objective - Vital Signs/Intake and Output Vital Signs (last 24 hours): Temp Pulse Resp BP Pulse Ox 98.9 F 128 H 31 H 105/57 L 94 L 01/01/17 12:45 01/01/17 12:45 01/01/17 12:45 01/01/17 12:45 01/01/17 10:15 Intake and Output: 01/01/17 01/01/17 06:59 18:59 Intake Total 1760.8 256.4 Output Total 600 0 Balance 1160.8 256.4 - Medications Medications: Current Medications Emollient Ointment (Vaseline Oint) 5 gm TOP QID PRN Last Admin: 12/31/16 01:23 Dose: 5 gm Hydroxychloroquine Sulfate (Plaquenil) 200 mg PO BID [facility] Last Admin: 01/01/17 10:14 Dose: 200 mg Azithromycin 500 mg/ Sodium (Chloride) 250 mls @ 250 mls/hr IVPB DAILY [facility] Last Admin: 01/01/17 09:55 Dose: 250 mls/hr Propofol (Diprivan) 100 mls @ 1.71 mls/hr IV .Q24H PRN; Protocol; 5 MCG/KG/MIN PRN Reason: TITRATE PER MD ORDER Last Admin: 01/01/17 12:33 Dose: 3.42 mls/hr Cefepime HCl (Maxipime Iv 2 Gm Premix) 100 mls @ 100 mls/hr IVPB Q24H [facility] Stop: 01/03/17 10:01 Last Admin: 01/01/17 10:06 Dose: 100 mls/hr Sodium Bicarbonate 100 meq/ (Dextrose) 1,000 mls @ 75 mls/hr IV .[id number] [facility] Last Admin: 01/01/17 01:53 Dose: 75 mls/hr Milrinone Lactate/Dextrose 20 (mg/ Dextrose) 100 mls @ 6.3 mls/hr IV .[id number] [facility] PRN Reason: 0.375 MCG/KG/MIN Last Admin: 01/01/17 08:35 Dose: 6.3 mls/hr Norepinephrine Bitartrate 8 mg (/ Sodium Chloride) 258 mls @ 38.7 mls/hr IV .Q6H40M PRN; Protocol; 20 MCG/MIN PRN Reason: TITRATE PER MD ORDER Last Admin: 01/01/17 10:15 Dose: 48.37 mls/hr Lorazepam (Ativan) 1 mg IVP Q6H PRN PRN Reason: Anxiety Last Admin: 12/31/16 16:40 Dose: 1 mg Nystatin (Nystop Topical Powder) 1 applic TOP BID [facility] Last Admin: 01/01/17 10:21 Dose: 1 appl Pantoprazole Sodium (Protonix Inj) 40 mg IVP DAILY [facility] Last Admin: 01/01/17 10:14 Dose: 40 mg - Labs Labs: 01/01/17 05:59 01/01/17 05:59 PT 17.7 SECONDS (9.7-12.2) H 12/30/16 10:43 INR 1.6 12/30/16 10:43 APTT 34 SECONDS (21-34) D 12/25/16 06:11 - Constitutional Appears: Toxic, Chronically Ill - Head Exam Head Exam: ATRAUMATIC, NORMAL INSPECTION - Neck Exam Neck Exam: Normal Inspection. absent: Tenderness - Respiratory Exam Respiratory Exam: Rhonchi, Respiratory Distress - Cardiovascular Exam Cardiovascular Exam: Tachycardia, +S1 - GI/Abdominal Exam GI & Abdominal Exam: Soft. absent: Tenderness - Extremities Exam Extremities Exam: Normal Inspection. 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
--- NOTE | 2017-01-01 16:12 | CP.PCM.CON ---
History of Present Illness - History of Present Illness History of Present Illness: 61 year old female with PMHx of lupus, pacemaker, stroke with left sided deficit , HTN presents to the emergency room with shortness of breath. Developed resp failure sepsis and pneumonia with renal failure Pt currently on pressors and intibated All cultures x rays labs to be reviewed Discussed with Respiratory Care Specialist at length PMHx:upus, pacemaker, stroke with left sided deficit, HTN. SHx: denies Family Hx: denies Allergies: NKDA Social: Denies tobacco, alcohol, illicit drug use Medications: Folic Acid, MV, Gabapentin 100 mg PO BID, Omeprazole 20 mg PO daily , Tramadol 50 mg PO BID, Sertraline 50 mg PO daily, Amlodipine 5 mg PO daily. Review of Systems - Review of Systems Systems not reviewed;Unavailable: Altered Mental Status, Intubated Past Patient History - Past Medical History & Family History Past Medical History?: Yes - Past Social History Smoking Status: Never Smoked Alcohol: None Drugs: Denies - CARDIAC Hx Pacemaker: Yes - NEUROLOGICAL HX Cerebrovascular Accident: Yes (RT side deficit) - MUSCULOSKELETAL/RHEUMATOLOGICAL Hx Falls: No - PSYCHIATRIC Hx Substance Use: No Meds Allergies/Adverse Reactions: Allergies Allergy/AdvReac Type Severity Reaction Status Date / Time No Known Allergies Allergy Verified 12/22/16 13:20 - Medications Medications: Current Medications Emollient Ointment (Vaseline Oint) 5 gm TOP QID PRN Last Admin: 12/31/16 01:23 Dose: 5 gm Hydroxychloroquine Sulfate (Plaquenil) 200 mg PO BID [facility] Last Admin: 01/01/17 10:14 Dose: 200 mg Azithromycin 500 mg/ Sodium (Chloride) 250 mls @ 250 mls/hr IVPB DAILY [facility] Last Admin: 01/01/17 09:55 Dose: 250 mls/hr Propofol (Diprivan) 100 mls @ 1.71 mls/hr IV .Q24H PRN; Protocol; 5 MCG/KG/MIN PRN Reason: TITRATE PER MD ORDER Last Admin: 01/01/17 12:33 Dose: 3.42 mls/hr Cefepime HCl (Maxipime Iv 2 Gm Premix) 100 mls @ 100 mls/hr IVPB Q24H [facility] Stop: 01/03/17 10:01 Last Admin: 01/01/17 10:06 Dose: 100 mls/hr Sodium Bicarbonate 100 meq/ (Dextrose) 1,000 mls @ 75 mls/hr IV .[id number] [facility] Last Admin: 01/01/17 01:53 Dose: 75 mls/hr Milrinone Lactate/Dextrose 20 (mg/ Dextrose) 100 mls @ 6.3 mls/hr IV .[id number] [facility] PRN Reason: 0.375 MCG/KG/MIN Last Admin: 01/01/17 08:35 Dose: 6.3 mls/hr Norepinephrine Bitartrate 8 mg (/ Sodium Chloride) 258 mls @ 38.7 mls/hr IV .Q6H40M PRN; Protocol; 20 MCG/MIN PRN Reason: TITRATE PER MD ORDER Last Admin: 01/01/17 10:15 Dose: 48.37 mls/hr Lorazepam (Ativan) 1 mg IVP Q6H PRN PRN Reason: Anxiety Last Admin: 12/31/16 16:40 Dose: 1 mg Nystatin (Nystop Topical Powder) 1 applic TOP BID [facility] Last Admin: 01/01/17 10:21 Dose: 1 appl Pantoprazole Sodium (Protonix Inj) 40 mg IVP DAILY [facility] Last Admin: 01/01/17 10:14 Dose: 40 mg Physical Exam - Constitutional Appears: Toxic, In Acute Distress, Older Than Stated Age - Head Exam Head Exam: ATRAUMATIC, NORMAL INSPECTION, NORMOCEPHALIC - Eye Exam Eye Exam: PERRL. absent: Scleral icterus - ENT Exam ENT Exam: Mucous Membranes Dry, Normal External Ear Exam, Normal Oropharynx Additional comments: ET tube in place - Neck Exam Neck exam: Negative for: Lymphadenopathy, Thyromegaly - Respiratory Exam Respiratory Exam: Decreased Breath Sounds, Rales, Rhonchi - Cardiovascular Exam Cardiovascular Exam: REGULAR RHYTHM, +S1, +S2. absent: Tachycardia - GI/Abdominal Exam GI & Abdominal Exam: Diminished Bowel Sounds, Distended, Soft. absent: Guarding , Pulsatile Mass, Rebound, Rigid, Tenderness - Rectal Exam Rectal Exam: Deferred - Exam Exam: NORMAL INSPECTION - Extremities Exam Extremities exam: Positive for: pedal edema, pedal pulses present. Negative for : calf tenderness, tenderness - Back Exam Back exam: absent: CVA tenderness (L), CVA tenderness (R) - Neurological Exam Neurological exam: Altered - Psychiatric Exam Psychiatric exam: Depressed - Skin Skin Exam: Dry Results - Vital Signs Recent Vital Signs: Last Vital Signs Temp 98.9 F 01/01/17 16:08 Pulse 34 L 01/01/17 16:08 Resp 33 H 01/01/17 14:56 BP 111/61 01/01/17 16:08 Pulse Ox 91 L 01/01/17 14:56 - Labs Result Diagrams: 01/01/17 05:59 01/01/17 05:59 Labs: Laboratory Results - last 24 hr 12/31/16 01/01/17 01/01/17 08:43 05:09 05:59 WBC 15.9 H RBC 2.50 L Hgb 8.0 L Hct 25.2 L MCV 101.0 H D MCH 31.9 H MCHC 31.6 L RDW 22.3 H Plt Count 126 L MPV 10.7 Neut % (Auto) 83.9 H Lymph % (Auto) 7.0 L Stark % (Auto) 8.7 Eos % (Auto) 0.1 Baso % (Auto) 0.3 Neut # 13.4 H Lymph # 1.1 Stark # 1.4 H Eos # 0.0 Baso # 0.0 Neutrophils % (Manual) 73 Band Neutrophils % 9 H Lymphocytes % (Manual) 6 L Reactive Lymphs % 1 H Monocytes % (Manual) 10 Eosinophils % (Manual) 1 Platelet Estimate Slightly increased H Large Platelets Present Poikilocytosis (manual Slight Anisocytosis (manual) Moderate Macrocytosis (manual) Moderate Target Cells Slight Puncture Site Rr pCO2 25 L pO2 60 L HCO3 16.9 L ABG pH 7.36 ABG Total CO2 14.9 L ABG O2 Saturation 95.6 ABG Base Excess -10.2 L ABG Hemoglobin 8.1 L ABG Carboxyhemoglobin 2.2 H POC ABG HHb (Measured) 4.2 ABG Methemoglobin 1.4 Billy Test Pos A-a O2 Difference 337.0 Respiratory Index 5.6 Hgb O2 Saturation 92.2 L Mechanical Rate 16 FiO2 60.0 Tidal Volume 500 PEEP 5 Sodium 146 Potassium 3.9 Chloride 114 H Carbon Dioxide 17 L Anion Gap 19 BUN 67 H Creatinine 4.0 H Est GFR ( Amer) 14 Est GFR (Non-Af Amer) 11 Random Glucose 116 H Calcium 7.2 L Phosphorus 3.4 Magnesium 1.7 Total Bilirubin 3.7 H AST 140 H D ALT 170 H D Alkaline Phosphatase 109 Total Protein 5.2 L Albumin 2.0 L Globulin 3.2 Albumin/Globulin Ratio 0.6 L Alpha Fetoprotein 6.0 Blood Type B POSITIVE Blood Type Confirm B POSITIVE Antibody Screen Negative Assessment & Plan (1) VERONICA (acute kidney injury) Status: Acute (2) Abnormal thyroid blood test Status: Acute (3) CHF (congestive heart failure) Status: Acute (4) Dyspnea Status: Acute (5) HTN (hypertension) Status: Acute (6) Lupus (systemic lupus erythematosus) Status: Acute (7) Pneumonia due to aerobic bacteria Status: Acute (8) Septic shock Status: Acute (9) Respiratory failure Status: Acute (10) Respiratory failure of more than 28 days duration Status: Acute (11) Respiratory failure requiring intubation Status: Acute - Assessment and Plan (Free Text) Assessment: pneumonia septic shock resp failure chf renal failure and lupus r/o Opportunistic pathogen panculture Bronch/ lavage when stable
[2017-01-01] MEDS ORDERED: Gentamicin 160 MG in Sodium Chloride 0.9% 100 ML IVPB ONE (16:17)
[2017-01-01] MEDS ORDERED: Vancomycin 1 gm/NS 200 ml 200 ML IVPB STA (16:20)
[2017-01-01] MEDS ORDERED: Albumin Human 25% (12.5 gm/50 ml) IV ONE ×2 (16:37→16:40)
[2017-01-01] MEDS: Micafungin 100 MG in Sodium Chloride 0.9% 100 ML IV SCH (21:02)
[2017-01-02] MEDS: Milrinone 20 MG in Dextrose 5% In Water 80 ML IV SCH ×2 (00:16→16:27)
[2017-01-02 04:50] LABS: ABG MECHANICAL RATE 16; ARTERIAL BLOOD HGB O2 SAT 91.1 % (95.0-98.0); ATERIAL BLOOD GAS PEEP 5; CARBOXYHEMOGLOBIN 2.6 % (0.5-1.5); DRAW SITE RB; HHB 5.3 % (0.0-5.0)
[2017-01-02 06:48] LABS: BASO # 0.1 K/uL (0.0-0.2); BASO % 0.6 % (0.0-2.0); EOS # 0.1 K/uL (0.0-0.7); EOS % 0.6 % (0.0-4.0); HEMATOCRIT 22.8 % (34.0-47.0); LYMPH # 1.4 K/uL (1.0-4.3); LYMPH % 11.2 % (20.0-40.0); MEAN CELL VOLUME 98.2 fL (81.0-99.0); MEAN CORPUSCULAR HEMOGLOBIN 32.1 pg (27.0-31.0); MEAN CORPUSCULAR HGB CONC 32.6 g/dL (33.0-37.0); MEAN PLATELET VOLUME 10.3 fL (7.2-11.7); MONO # 0.9 K/uL (0.0-0.8); MONO % 7.1 % (0.0-10.0); NRBC % 0.7 % (0.0-2.0); RED CELL DISTRIBUTION WIDTH 21.9 % (11.5-14.5); WHITE BLOOD COUNT 12.8 K/uL (4.8-10.8)
[2017-01-02 07:11] LABS: POTASSIUM 3.3 mmol/L (3.6-5.2)
[2017-01-02 07:13] LABS: BILIRUBIN,TOTAL 5.4 mg/dL (0.2-1.3)
[2017-01-02 07:14] LABS: ALB/GLOB RATIO 0.6 (1.0-2.1); PHOSPHOROUS 2.5 mg/dL (2.5-4.5)
[2017-01-02 07:15] LABS: MAGNESIUM 1.5 mg/dL (1.6-2.3)
--- NOTE | 2017-01-02 07:56 | CP.PCM.PN ---
Subjective - Date & Time of Evaluation Date of Evaluation: 01/02/17 Time of Evaluation: 07:42 - Subjective Subjective: Pt intubated sedated supportive care Objective - Vital Signs/Intake and Output Vital Signs (last 24 hours): Temp Pulse Resp BP Pulse Ox 98.8 F 115 H 32 H 93/43 L 100 01/02/17 00:00 01/02/17 07:39 01/02/17 07:39 01/02/17 07:39 01/02/17 07:39 Intake and Output: 01/02/17 01/02/17 06:59 18:59 Intake Total 1574.0 Output Total 150 Balance 1424.0 - Medications Medications: Current Medications Emollient Ointment (Vaseline Oint) 5 gm TOP QID PRN Last Admin: 12/31/16 01:23 Dose: 5 gm Hydroxychloroquine Sulfate (Plaquenil) 200 mg PO BID [facility] Last Admin: 01/01/17 17:36 Dose: 200 mg Azithromycin 500 mg/ Sodium (Chloride) 250 mls @ 250 mls/hr IVPB DAILY [facility] Last Admin: 01/01/17 09:55 Dose: 250 mls/hr Propofol (Diprivan) 100 mls @ 1.71 mls/hr IV .Q24H PRN; Protocol; 5 MCG/KG/MIN PRN Reason: TITRATE PER MD ORDER Last Admin: 01/01/17 12:33 Dose: 3.42 mls/hr Cefepime HCl (Maxipime Iv 2 Gm Premix) 100 mls @ 100 mls/hr IVPB Q24H [facility] Stop: 01/03/17 10:01 Last Admin: 01/01/17 10:06 Dose: 100 mls/hr Sodium Bicarbonate 100 meq/ (Dextrose) 1,000 mls @ 75 mls/hr IV .[id number] [facility] Last Admin: 01/01/17 17:38 Dose: 75 mls/hr Milrinone Lactate/Dextrose 20 (mg/ Dextrose) 100 mls @ 6.3 mls/hr IV .[id number] [facility] PRN Reason: 0.375 MCG/KG/MIN Last Admin: 01/02/17 00:16 Dose: 6.3 mls/hr Norepinephrine Bitartrate 8 mg (/ Sodium Chloride) 258 mls @ 38.7 mls/hr IV .Q6H40M PRN; Protocol; 20 MCG/MIN PRN Reason: TITRATE PER MD ORDER Last Admin: 01/02/17 07:39 Dose: 38.68 mls/hr Micafungin Sodium 100 mg/ (Sodium Chloride) 100 mls @ 100 mls/hr IV Q24H [facility] Last Admin: 01/01/17 21:02 Dose: 100 mls/hr Lorazepam (Ativan) 1 mg IVP Q3H PRN PRN Reason: Anxiety Last Admin: 01/02/17 06:02 Dose: 1 mg Nystatin (Nystop Topical Powder) 1 applic TOP BID [facility] Last Admin: 01/01/17 17:37 Dose: 1 appl Pantoprazole Sodium (Protonix Inj) 40 mg IVP DAILY [facility] Last Admin: 01/01/17 10:14 Dose: 40 mg - Labs Labs: 01/02/17 06:36 01/02/17 06:36 PT 17.7 SECONDS (9.7-12.2) H 12/30/16 10:43 INR 1.6 12/30/16 10:43 APTT 34 SECONDS (21-34) D 12/25/16 06:11 - Constitutional Appears: Chronically Ill - Head Exam Head Exam: ATRAUMATIC, NORMOCEPHALIC Additional comments: intubated - Respiratory Exam Respiratory Exam: Rales - Cardiovascular Exam Cardiovascular Exam: Tachycardia, Irregular Rhythm, +S1, +S2, Murmur - GI/Abdominal Exam GI & Abdominal Exam: Hypoactive Bowel Sounds - Exam External exam: Swelling - Extremities Exam Extremities Exam: Pedal Edema - Skin Skin Exam: Dry Assessment and Plan (1) CHF (congestive heart failure) Assessment & Plan: Pt intubated sedated on pressor support follow lytes tranfuse for anemia Status: Acute (2) Dyspnea Status: Acute (3) Respiratory failure requiring intubation Status: Acute
[2017-01-02] MEDS ORDERED: Potassium Chloride 20 mEq/15 ml LIQ UD PO ONE (09:00)
[2017-01-02] MEDS: Petrolatum Oint Foilpak (5 gm) TOP PRN ×2 (09:20→17:40)
[2017-01-02] MEDS: Cefepime IV 2 gm in Dextrose 100 ML IVPB SCH (10:00)
[2017-01-02] MEDS: Sodium Bicarbonate 8.4% 100 MEQ in Dextrose 5% In Water 900 ML IV SCH ×2 (11:00→16:30)
--- NOTE | 2017-01-02 11:14 | CP.PCM.PN ---
Subjective - Date & Time of Evaluation Date of Evaluation: 01/02/17 Time of Evaluation: 11:11 - Subjective Subjective: Notes reviewed Discussed with ICU nurse Patient remains intubated and sedated Hemodynamically stable, hypotension as previous Scheduled for HD and prbc transfusion ROS unobtainable due to AMS Objective - Vital Signs/Intake and Output Vital Signs (last 24 hours): Temp Pulse Resp BP Pulse Ox 99.6 F 116 H 18 95/51 L 100 01/02/17 08:00 01/02/17 08:09 01/02/17 08:09 01/02/17 08:09 01/02/17 08:09 Intake and Output: 01/02/17 01/02/17 06:59 18:59 Intake Total 1574.0 252.0 Output Total 150 Balance 1424.0 252.0 - Medications Medications: Current Medications Emollient Ointment (Vaseline Oint) 5 gm TOP QID PRN Last Admin: 01/02/17 09:20 Dose: 5 gm Hydroxychloroquine Sulfate (Plaquenil) 200 mg PO BID [facility] Last Admin: 01/02/17 09:20 Dose: 200 mg Azithromycin 500 mg/ Sodium (Chloride) 250 mls @ 250 mls/hr IVPB DAILY [facility] Last Admin: 01/01/17 09:55 Dose: 250 mls/hr Propofol (Diprivan) 100 mls @ 1.71 mls/hr IV .Q24H PRN; Protocol; 5 MCG/KG/MIN PRN Reason: TITRATE PER MD ORDER Last Admin: 01/02/17 08:10 Dose: 3.42 mls/hr Cefepime HCl (Maxipime Iv 2 Gm Premix) 100 mls @ 100 mls/hr IVPB Q24H [facility] Stop: 01/03/17 10:01 Last Admin: 01/02/17 10:00 Dose: 100 mls/hr Sodium Bicarbonate 100 meq/ (Dextrose) 1,000 mls @ 75 mls/hr IV .[id number] [facility] Last Admin: 01/01/17 17:38 Dose: 75 mls/hr Milrinone Lactate/Dextrose 20 (mg/ Dextrose) 100 mls @ 6.3 mls/hr IV .[id number] [facility] PRN Reason: 0.375 MCG/KG/MIN Last Admin: 01/02/17 00:16 Dose: 6.3 mls/hr Norepinephrine Bitartrate 8 mg (/ Sodium Chloride) 258 mls @ 38.7 mls/hr IV .Q6H40M PRN; Protocol; 20 MCG/MIN PRN Reason: TITRATE PER MD ORDER Last Titration: 01/02/17 08:00 Dose: 21.34 mcg/min Micafungin Sodium 100 mg/ (Sodium Chloride) 100 mls @ 100 mls/hr IV Q24H [facility] Last Admin: 01/01/17 21:02 Dose: 100 mls/hr Lorazepam (Ativan) 1 mg IVP Q3H PRN PRN Reason: Anxiety Last Admin: 01/02/17 06:02 Dose: 1 mg Nystatin (Nystop Topical Powder) 1 applic TOP BID [facility] Last Admin: 01/02/17 09:21 Dose: 1 appl Pantoprazole Sodium (Protonix Inj) 40 mg IVP DAILY [facility] Last Admin: 01/02/17 09:19 Dose: 40 mg - Labs Labs: 01/02/17 06:36 01/02/17 06:36 PT 17.7 SECONDS (9.7-12.2) H 12/30/16 10:43 INR 1.6 12/30/16 10:43 APTT 34 SECONDS (21-34) D 12/25/16 06:11 - Constitutional Appears: Older Than Stated Age - Head Exam Head Exam: ATRAUMATIC, NORMAL INSPECTION - Neck Exam Neck Exam: absent: Lymphadenopathy, Thyromegaly - Respiratory Exam Respiratory Exam: Rhonchi - Cardiovascular Exam Cardiovascular Exam: RRR, +S1, +S2. absent: JVD - GI/Abdominal Exam GI & Abdominal Exam: Normal Bowel Sounds - Extremities Exam Extremities Exam: Pedal Edema. absent: Joint Swelling - Neurological Exam Neurological Exam: absent: Alert, Awake, Oriented x3 - Skin Skin Exam: Warm Assessment and Plan (1) Lupus (systemic lupus erythematosus) Status: Acute (2) Septic shock Status: Acute (3) VERONICA (acute kidney injury) Status: Acute (4) CHF (congestive heart failure) Status: Acute (5) Respiratory failure requiring intubation Status: Acute - Assessment and Plan (Free Text) Plan: Dialysis today, uf as tolerated PRBC transfusion with dialysis Abx as ordered Continue supportive care
[2017-01-02] MEDS: Azithromycin 500 MG in Sodium Chloride 0.9% 250 ML IVPB SCH (11:15)
--- NOTE | 2017-01-02 14:03 | CP.PCM.PN ---
Subjective - Date & Time of Evaluation Date of Evaluation: 01/01/17 Time of Evaluation: 17:09 - Subjective Subjective: started on HD non verbal on vent Objective - Vital Signs/Intake and Output Vital Signs (last 24 hours): Temp Pulse Resp BP Pulse Ox 99.6 F 108 H 26 H 93/48 L 100 01/02/17 08:00 01/02/17 12:21 01/02/17 12:21 01/02/17 12:21 01/02/17 12:21 Intake and Output: 01/02/17 01/02/17 06:59 18:59 Intake Total 1574.0 252.0 Output Total 150 Balance 1424.0 252.0 - Medications Medications: Current Medications Emollient Ointment (Vaseline Oint) 5 gm TOP QID PRN Last Admin: 01/02/17 09:20 Dose: 5 gm Hydroxychloroquine Sulfate (Plaquenil) 200 mg PO BID [facility] Last Admin: 01/02/17 09:20 Dose: 200 mg Azithromycin 500 mg/ Sodium (Chloride) 250 mls @ 250 mls/hr IVPB DAILY [facility] Last Admin: 01/02/17 11:15 Dose: 250 mls/hr Propofol (Diprivan) 100 mls @ 1.71 mls/hr IV .Q24H PRN; Protocol; 5 MCG/KG/MIN PRN Reason: TITRATE PER MD ORDER Last Admin: 01/02/17 08:10 Dose: 3.42 mls/hr Cefepime HCl (Maxipime Iv 2 Gm Premix) 100 mls @ 100 mls/hr IVPB Q24H [facility] Stop: 01/03/17 10:01 Last Admin: 01/02/17 10:00 Dose: 100 mls/hr Sodium Bicarbonate 100 meq/ (Dextrose) 1,000 mls @ 75 mls/hr IV .[id number] [facility] Last Admin: 01/02/17 11:00 Dose: 75 mls/hr Milrinone Lactate/Dextrose 20 (mg/ Dextrose) 100 mls @ 6.3 mls/hr IV .[id number] [facility] PRN Reason: 0.375 MCG/KG/MIN Last Admin: 01/02/17 00:16 Dose: 6.3 mls/hr Norepinephrine Bitartrate 8 mg (/ Sodium Chloride) 258 mls @ 38.7 mls/hr IV .Q6H40M PRN; Protocol; 20 MCG/MIN PRN Reason: TITRATE PER MD ORDER Last Admin: 01/02/17 12:21 Dose: 41.3 mls/hr Micafungin Sodium 100 mg/ (Sodium Chloride) 100 mls @ 100 mls/hr IV Q24H [facility] Last Admin: 01/01/17 21:02 Dose: 100 mls/hr Lorazepam (Ativan) 1 mg IVP Q3H PRN PRN Reason: Anxiety Last Admin: 01/02/17 06:02 Dose: 1 mg Nystatin (Nystop Topical Powder) 1 applic TOP BID [facility] Last Admin: 01/02/17 09:21 Dose: 1 appl Pantoprazole Sodium (Protonix Inj) 40 mg IVP DAILY [facility] Last Admin: 01/02/17 09:19 Dose: 40 mg - Labs Labs: 01/02/17 06:36 01/02/17 06:36 PT 17.7 SECONDS (9.7-12.2) H 12/30/16 10:43 INR 1.6 12/30/16 10:43 APTT 34 SECONDS (21-34) D 12/25/16 06:11 - Constitutional Appears: Chronically Ill - Head Exam Head Exam: ATRAUMATIC - Respiratory Exam Respiratory Exam: Rhonchi - Cardiovascular Exam Cardiovascular Exam: Tachycardia, +S1, +S2. absent: Murmur - GI/Abdominal Exam GI & Abdominal Exam: Soft. absent: Tenderness - Neurological Exam Neurological Exam: absent: Alert, Awake, Oriented x3 Assessment and Plan - Assessment and Plan (Free Text) Assessment: on drips levophed cont icu management following socially until stable for floor full code per family started on HD cont ICU management Per ICU Pt is 61F with extensive medical history pertinent for lupus, heart failure with AICD, stroke with left-sided deficit, and HTN admitted to the ICU s/p agonal breathing requiring intubation on medical floor. Patient being treated for sepsis likely secondary to aspiration pneumonia. Consideration were made for cavitary lesions which prompted a mycobacterium TB workup, however, likely pneumonia, given negative AFB smear isolation precautions discontinued. Plan: Neuro: Sedated on Propofol (previously Versed) History of CVA with residual weakness Head CT: No evidence of acute intracranial hemorrhage, acute territorial infarct , mass effect or midline shift. Moderate-size encephalomalacia at the left temporal parietal lobe suggestive of chronic left MCA territory infarct. Moderate atrophy and white matter changes. CVS: Currently normotensive, BP 107/60 CHF with EF noted to be 26% on previous echocardiogram Repeat echo (12/22/16): LVEF <20%, LV is mildly dilated, LA is mildly dilated. Mild AR, moderate-severe MR, Moderate-severe pulmonary HTN. 12/28/[address] - Left-sided AICD. Cardiomegaly. Coronary artery calcifications. AICD - interrogated 12/25, no issues Pro-BNP 32,000 (12/22/16) History of HTN Follows gallery or museum curator Dr. Rubio as outpatient Intensive Care Medicine Specialist Dr. Montelongo consulted - help appreciated On Dopamine drip TLC in RIJ YOUSUF panel negative. Troponins 0.0240>0.0670>0.0830 Pulm: Intubated on AC/PRVC, Observed RR 16 Vent settings: 500/16/5 FiO2 40% 12/30/16 ABG: pCO2 22, pO2, HCO3 13.6, pH 7.29 12/28/16 ABG: pCO2 25, pO2 115, HCO3 17.3, pH 7.36 12/25/16 ABG: pCO2 24, pO2 191, HCO3 20.3, pH 7.44, Lactate 1.4 12/24/16 ABG: pCO2 26, pO2 221, HCO3 17.9, pH 7.36, lactate 2.3 Saturating 98% 12/28/[address] - Extensive right upper lobe consolidation/pneumonia. Bibasilar atelectasis. Small right pleural effusion. Recommend follow-up to resolution. 12/30/16 CXR: Persistent hazy opacity in the right upper lobe. No significant interval change. Improved. 12/28/16 CXR: Lines and tubes in stable position. Left-sided pacemaker. Persistent ill-defined consolidative changes seen within the right upper to mid lung zone. No significant interval change. 12/25/16 CXR: Endotracheal tube extending into the midthoracic trachea. NG tube extending into stomach. Right central venous catheter extending in to the cavoatrial junction. Dense consolidative opacification of the right upper and midlung zones. Milder patchy opacity at the lung base. Diffuse increased interstitial lung markings. 12/24/16 CXR: Worsening RUL consolidation, cardiomegaly, left-sided AICD CT Abdomen and Pelvis w/o contrast (12/22/16): Small to moderate R pleural effusion. Possible aspiration pneumonia AFB smear negative, culture pending D/c isolation Antibiotics as below GI: Still has diarrhea, stool sample for C.diff is negative OG tube, receiving feeds Hepatitis panel negative, AMA negative (r/o PBC), Ceruloplasmin negative, LKM ab negative, Anti-SM - pending. GI will consider EUS if workup is negative and direct bili remains elevated. GI consulted - help appreciated Per GI, repeat U/S to assess for hepatorenal syndrome, cardiorenal syndrome and SBP. Change to PPI IV daily Pancreatic protocol CT (12/25/16) - Fatty infiltration of the liver, heterogeneous. Innumerable small enhancing nodules on portal venous phase images of the liver. Uncertain significance. Consider metastatic disease. Unlikely hepatocellular neoplasm. No evidence of pancreatitis or pancreatic mass. No biliary obstruction. Mild ascites. Small right and trace left pleural effusion with lower lobe compressive atelectasis. Permanent pacemaker. Nasogastric tube. Brunner catheter. T.bili of 9.5, Direct bili of 7.2, GGT 126, AST 126, ALT 79 on admission T. bili 6.6, AST 163, ALT 105 (12/24/16) T. bili 7.6, AST 201, ALT 109 (12/25/16) T. bili 5.3, AST 507, ALT 221, Alk phos 132 (12/28/16) T. bili 4.2, AST 523, ALT 313, Alk phos 108 (12/30/16) Continue to trend T.bili and LFTs - stabilizing - likely 2/[address] Abdomen and Pelvis w/o contrast (12/22/16): Small to moderate right pleural effusion. Trace ascites. Nonspecific presacral edema. Mild generalized anasarca. Mild hepatomegaly with fatty infiltration of the liver. No evidence of biliary obstruction. No evidence of cholecystitis. Mild nonspecific presacral edema, possibly related generalized anasarca. RUQ US (12/23/16): Right renal cysts. Incidental note is made of small right pleural effusion. Echogenic liver may be in setting of hepatic parenchymal disease or fatty infiltration. Small perihepatic ascites. Small fluid is noted by the gallbladder fossa. Gallbladder wall thickening/pericholecystic edema without evidence of gallstones. Negative sonographic Hutchinson's sign as assessed by the medical records custodian. No portal vein thrombosis. Heme: Hgb 8.5 Monitor Hct 26.3 Plt 91 Thrombocytopenia slowly improving Monitor Endo: T3 and T4 are low on admission with normal TSH TSH 1.34, T3 uptake >65.o, Free T4 0.87 Maintain euglycemia Rheumatology: History of lupus On plaquenil 200mg BID Folic acid 1mg PO daily IgG 1775.0 IgA 510.1 IgM 66.[address] Reynaga as outpatient Nephro: BUN/Cr 47/3.0 UTI: 12/26 culture positive for E.Coli, Abx as below 12/28/[address] - Limited visualization of the upper abdomen demonstrates numerous bilateral renal lesions, possibly cysts. Hyperdense 11 mm left upper pole exophytic lesion, indeterminate. Decreased urine output, I/o 2545/390 Nephro (Dr. Wong) consulted -help appreciated Increased IVF Monitor : monitor urine output Brunner in Maintenance fluids 75 cc/hr ID: Leukocytosis (WBC: 11.9) Possible aspiration pneumonia Hepatitis panel negative UTI, urine cx positive for E.coli Started Cefepime 2gm IVPB Q8H (12/24/16) On Azithromycin 500 mg IVPB daily, Cefepime IV 2GM daily Stool for C.diff - negative AFB smear negative Mycobacterial culture - pending D/c isolation Prophylaxis: Heparin 5000U SC Q8H Protonix 40 mg IV daily
--- NOTE | 2017-01-02 14:03 | CP.PCM.PN ---
Subjective - Date & Time of Evaluation Date of Evaluation: 01/02/17 Time of Evaluation: 14:03 - Subjective Subjective: intubated sedated on vent Objective - Vital Signs/Intake and Output Vital Signs (last 24 hours): Temp Pulse Resp BP Pulse Ox 99.6 F 108 H 26 H 93/48 L 100 01/02/17 08:00 01/02/17 12:21 01/02/17 12:21 01/02/17 12:21 01/02/17 12:21 Intake and Output: 01/02/17 01/02/17 06:59 18:59 Intake Total 1574.0 252.0 Output Total 150 Balance 1424.0 252.0 - Medications Medications: Current Medications Emollient Ointment (Vaseline Oint) 5 gm TOP QID PRN Last Admin: 01/02/17 09:20 Dose: 5 gm Hydroxychloroquine Sulfate (Plaquenil) 200 mg PO BID [facility] Last Admin: 01/02/17 09:20 Dose: 200 mg Azithromycin 500 mg/ Sodium (Chloride) 250 mls @ 250 mls/hr IVPB DAILY [facility] Last Admin: 01/02/17 11:15 Dose: 250 mls/hr Propofol (Diprivan) 100 mls @ 1.71 mls/hr IV .Q24H PRN; Protocol; 5 MCG/KG/MIN PRN Reason: TITRATE PER MD ORDER Last Admin: 01/02/17 08:10 Dose: 3.42 mls/hr Cefepime HCl (Maxipime Iv 2 Gm Premix) 100 mls @ 100 mls/hr IVPB Q24H [facility] Stop: 01/03/17 10:01 Last Admin: 01/02/17 10:00 Dose: 100 mls/hr Sodium Bicarbonate 100 meq/ (Dextrose) 1,000 mls @ 75 mls/hr IV .[id number] [facility] Last Admin: 01/02/17 11:00 Dose: 75 mls/hr Milrinone Lactate/Dextrose 20 (mg/ Dextrose) 100 mls @ 6.3 mls/hr IV .[id number] [facility] PRN Reason: 0.375 MCG/KG/MIN Last Admin: 01/02/17 00:16 Dose: 6.3 mls/hr Norepinephrine Bitartrate 8 mg (/ Sodium Chloride) 258 mls @ 38.7 mls/hr IV .Q6H40M PRN; Protocol; 20 MCG/MIN PRN Reason: TITRATE PER MD ORDER Last Admin: 01/02/17 12:21 Dose: 41.3 mls/hr Micafungin Sodium 100 mg/ (Sodium Chloride) 100 mls @ 100 mls/hr IV Q24H [facility] Last Admin: 01/01/17 21:02 Dose: 100 mls/hr Lorazepam (Ativan) 1 mg IVP Q3H PRN PRN Reason: Anxiety Last Admin: 01/02/17 06:02 Dose: 1 mg Nystatin (Nystop Topical Powder) 1 applic TOP BID [facility] Last Admin: 01/02/17 09:21 Dose: 1 appl Pantoprazole Sodium (Protonix Inj) 40 mg IVP DAILY [facility] Last Admin: 01/02/17 09:19 Dose: 40 mg - Labs Labs: 01/02/17 06:36 01/02/17 06:36 PT 17.7 SECONDS (9.7-12.2) H 12/30/16 10:43 INR 1.6 12/30/16 10:43 APTT 34 SECONDS (21-34) D 12/25/16 06:11 - Constitutional Appears: No Acute Distress - Respiratory Exam Respiratory Exam: Rhonchi - Cardiovascular Exam Cardiovascular Exam: REGULAR RHYTHM, +S1, +S2 - Neurological Exam Neurological Exam: absent: Alert, Awake, Oriented x3 Assessment and Plan - Assessment and Plan (Free Text) Assessment: on drips levophed cont icu management following socially until stable for floor full code per family started on HD cont ICU management Per ICU Pt is 61F with extensive medical history pertinent for lupus, heart failure with AICD, stroke with left-sided deficit, and HTN admitted to the ICU s/p agonal breathing requiring intubation on medical floor. Patient being treated for sepsis likely secondary to aspiration pneumonia. Consideration were made for cavitary lesions which prompted a mycobacterium TB workup, however, likely pneumonia, given negative AFB smear isolation precautions discontinued. Plan: Neuro: Sedated on Propofol (previously Versed) History of CVA with residual weakness Head CT: No evidence of acute intracranial hemorrhage, acute territorial infarct , mass effect or midline shift. Moderate-size encephalomalacia at the left temporal parietal lobe suggestive of chronic left MCA territory infarct. Moderate atrophy and white matter changes. CVS: Currently normotensive, BP 107/60 CHF with EF noted to be 26% on previous echocardiogram Repeat echo (12/22/16): LVEF <20%, LV is mildly dilated, LA is mildly dilated. Mild AR, moderate-severe MR, Moderate-severe pulmonary HTN. 12/28/[address] - Left-sided AICD. Cardiomegaly. Coronary artery calcifications. AICD - interrogated 12/25, no issues Pro-BNP 32,000 (12/22/16) History of HTN Follows warehouse traffic supervisor Dr. Rubio as outpatient Adult Daycare Coordinator Dr. Montelongo consulted - help appreciated On Dopamine drip TLC in RIJ YOUSUF panel negative. Troponins 0.0240>0.0670>0.0830 Pulm: Intubated on AC/PRVC, Observed RR 16 Vent settings: 500/16/5 FiO2 40% 12/30/16 ABG: pCO2 22, pO2, HCO3 13.6, pH 7.29 12/28/16 ABG: pCO2 25, pO2 115, HCO3 17.3, pH 7.36 12/25/16 ABG: pCO2 24, pO2 191, HCO3 20.3, pH 7.44, Lactate 1.4 12/24/16 ABG: pCO2 26, pO2 221, HCO3 17.9, pH 7.36, lactate 2.3 Saturating 98% 12/28/[address] - Extensive right upper lobe consolidation/pneumonia. Bibasilar atelectasis. Small right pleural effusion. Recommend follow-up to resolution. 12/30/16 CXR: Persistent hazy opacity in the right upper lobe. No significant interval change. Improved. 12/28/16 CXR: Lines and tubes in stable position. Left-sided pacemaker. Persistent ill-defined consolidative changes seen within the right upper to mid lung zone. No significant interval change. 12/25/16 CXR: Endotracheal tube extending into the midthoracic trachea. NG tube extending into stomach. Right central venous catheter extending in to the cavoatrial junction. Dense consolidative opacification of the right upper and midlung zones. Milder patchy opacity at the lung base. Diffuse increased interstitial lung markings. 12/24/16 CXR: Worsening RUL consolidation, cardiomegaly, left-sided AICD CT Abdomen and Pelvis w/o contrast (12/22/16): Small to moderate R pleural effusion. Possible aspiration pneumonia AFB smear negative, culture pending D/c isolation Antibiotics as below GI: Still has diarrhea, stool sample for C.diff is negative OG tube, receiving feeds Hepatitis panel negative, AMA negative (r/o PBC), Ceruloplasmin negative, LKM ab negative, Anti-SM - pending. GI will consider EUS if workup is negative and direct bili remains elevated. GI consulted - help appreciated Per GI, repeat U/S to assess for hepatorenal syndrome, cardiorenal syndrome and SBP. Change to PPI IV daily Pancreatic protocol CT (12/25/16) - Fatty infiltration of the liver, heterogeneous. Innumerable small enhancing nodules on portal venous phase images of the liver. Uncertain significance. Consider metastatic disease. Unlikely hepatocellular neoplasm. No evidence of pancreatitis or pancreatic mass. No biliary obstruction. Mild ascites. Small right and trace left pleural effusion with lower lobe compressive atelectasis. Permanent pacemaker. Nasogastric tube. Brunner catheter. T.bili of 9.5, Direct bili of 7.2, GGT 126, AST 126, ALT 79 on admission T. bili 6.6, AST 163, ALT 105 (12/24/16) T. bili 7.6, AST 201, ALT 109 (12/25/16) T. bili 5.3, AST 507, ALT 221, Alk phos 132 (12/28/16) T. bili 4.2, AST 523, ALT 313, Alk phos 108 (12/30/16) Continue to trend T.bili and LFTs - stabilizing - likely 2/[address] Abdomen and Pelvis w/o contrast (12/22/16): Small to moderate right pleural effusion. Trace ascites. Nonspecific presacral edema. Mild generalized anasarca. Mild hepatomegaly with fatty infiltration of the liver. No evidence of biliary obstruction. No evidence of cholecystitis. Mild nonspecific presacral edema, possibly related generalized anasarca. RUQ US (12/23/16): Right renal cysts. Incidental note is made of small right pleural effusion. Echogenic liver may be in setting of hepatic parenchymal disease or fatty infiltration. Small perihepatic ascites. Small fluid is noted by the gallbladder fossa. Gallbladder wall thickening/pericholecystic edema without evidence of gallstones. Negative sonographic Hutchinson's sign as assessed by the trapeze performer. No portal vein thrombosis. Heme: Hgb 8.5 Monitor Hct 26.3 Plt 91 Thrombocytopenia slowly improving Monitor Endo: T3 and T4 are low on admission with normal TSH TSH 1.34, T3 uptake >65.o, Free T4 0.87 Maintain euglycemia Rheumatology: History of lupus On plaquenil 200mg BID Folic acid 1mg PO daily IgG 1775.0 IgA 510.1 IgM 66.[address] Reynaga as outpatient Nephro: BUN/Cr 47/3.0 UTI: 12/26 culture positive for E.Coli, Abx as below 12/28/[address] - Limited visualization of the upper abdomen demonstrates numerous bilateral renal lesions, possibly cysts. Hyperdense 11 mm left upper pole exophytic lesion, indeterminate. Decreased urine output, I/o 2545/390 Nephro (Dr. Wong) consulted -help appreciated Increased IVF Monitor : monitor urine output Brunner in Maintenance fluids 75 cc/hr ID: Leukocytosis (WBC: 11.9) Possible aspiration pneumonia Hepatitis panel negative UTI, urine cx positive for E.coli Started Cefepime 2gm IVPB Q8H (12/24/16) On Azithromycin 500 mg IVPB daily, Cefepime IV 2GM daily Stool for C.diff - negative AFB smear negative Mycobacterial culture - pending D/c isolation Prophylaxis: Heparin 5000U SC Q8H Protonix 40 mg IV daily
[2017-01-02] MEDS ORDERED: Acetaminophen 650mg/20.3ml solution UD PO STA (16:12)
--- NOTE | 2017-01-02 18:06 | RAD ---
HISTORY: monitor infiltrative disease COMPARISON: Comparison chest 01/01/2017. FINDINGS: LUNGS: Diffuse bilateral somewhat with reticular type infiltrates with more confluent changes in the lung bases and right upper lobe again noted. In situ ETT, tip of which lies approximately 4.3 cm above isauro. NGT is present, the tip of which has not been included on this film though distal aspect was lie well below EG junction. No change right IJ central venous line with tip in the SVC/RA junction. PLEURA: No significant pleural effusion identified, no pneumothorax apparent. CARDIOVASCULAR: Cardiomegaly. OSSEOUS STRUCTURES: No significant abnormalities. VISUALIZED UPPER ABDOMEN: Normal. OTHER FINDINGS: None. IMPRESSION: Support lines and tubes as above. Diffuse bilateral infiltrates again noted cardiomegaly.
[2017-01-02] MEDS: Micafungin 100 MG in Sodium Chloride 0.9% 100 ML IV SCH (19:00)
--- NOTE | 2017-01-02 19:40 | CP.CCUPN ---
CCU Subjective - Physician Review Events Since Last Encounter (Free Text): 01/02/17 19:37 Patient seen and examined in the intensive care unit. Case discussed with house staff in the morning rounds. Previous events, lab data and imaging reviewed 61F with extensive medical history pertinent for lupus, heart failure with AICD , stroke with left-sided deficit, and HTN admitted to the ICU s/p agonal breathing requiring intubation on medical floor. Patient being treated for sepsis likely secondary to aspiration pneumonia. Patient metabolic status worsening secondary to underlying sepsis and worsening kidney function. Patient started on hemodialysis for worsening renal function and acidosis Ventilatory support requiring high FiO2 with worsening chest x-ray CCU Objective - Vital Signs / Intake & Output Vital Signs (Last 4 hours): Vital Signs Temp Pulse Pulse Resp BP BP Pulse Ox 01/02/17 18:35 106 H 23 123/80 100 01/02/17 18:08 117/72 01/02/17 18:07 105 H 26 H 100 01/02/17 18:00 104 H 105 H 25 H 117/72 100 01/02/17 17:53 105 H 26 H 115/74 100 01/02/17 17:45 96.5 F L 105 H 105 H 24 118/72 118/72 100 01/02/17 17:42 96.5 F L 105 H 24 118/72 01/02/17 17:38 104 H 26 H 118/72 100 01/02/17 17:30 96.5 F L 105 H 25 H 109/64 01/02/17 17:23 105 H 27 H 109/64 100 01/02/17 17:15 97.7 F 106 H 27 H 100 01/02/17 17:12 97.2 F L 105 H 27 H 104/62 01/02/17 17:08 106 H 28 H 104/62 100 01/02/17 17:00 97.3 F L 106 H 106 H 27 H 99/57 L 100 01/02/17 16:57 97.3 F L 106 H 29 H 99/57 L 01/02/17 16:53 106 H 27 H 99/57 L 100 01/02/17 16:45 106 H 27 H 101/62 100 01/02/17 16:42 97.7 F 106 H 105 H 29 H 101/62 99/57 L 01/02/17 16:38 106 H 28 H 100/58 L 100 01/02/17 16:36 97.7 F 106 H 28 H 100/58 L 01/02/17 16:30 106 H 27 H 100/58 L 01/02/17 16:27 107 H 25 H 96/53 L 100 01/02/17 16:23 107 H 25 H 96/53 L 100 01/02/17 16:15 106 H 26 H 96/53 L 100 01/02/17 16:08 107 H 25 H 97/54 L 100 01/02/17 16:06 108 H 27 H 100 01/02/17 16:00 99.3 F 110 H 107 H 30 H 97/54 L 100 01/02/17 15:56 110 H 28 H 91/52 L 100 01/02/17 15:53 110 H 27 H 91/52 L 100 01/02/17 15:45 109 H 27 H 99/55 L 100 01/02/17 15:38 107 H 27 H 99/55 L 100 Intake and Output (Last 8hrs): Intake & Output 01/02/17 01/02/17 01/02/17 06:59 14:59 22:59 Intake Total 1016.0 1558.0 829.0 Output Total 150 Balance 866.0 1558.0 829.0 Intake: Intake, IV Amount 1016.0 1458.0 504.0 Right Proximal Port 27.2 27.2 13.6 Internal Jugular Right Medial Port 50.4 50.4 25.2 Internal Jugular Right Distal Port 608 600 300 Internal Jugular Right Distal Port 330.4 330.4 165.2 Right Femoral 450 Tube Feeding 0 0 Blood Product 325 Apheresis Rbc Cp2d As3 Lr 325 2nd Unit [id number] Other 100 Output: Urine 150 Urethral (Brunner) 150 - Physical Exam Head: Positive for: Atraumatic, Normocephalic Pupils: Positive for: PERRL Extroacular Muscles: Positive for: EOMI Conjunctiva: Positive for: Normal Mouth: Positive for: Moist Mucous Membranes Pharnyx: Positive for: Other (intubated, OG tube) Respiratory/Chest: Positive for: Good Air Exchange, Other (intubated) Cardiovascular: Positive for: Normal S1, S2. Negative for: Murmurs Abdomen: Positive for: Normal Bowel Sounds. Negative for: Tenderness, Distention Upper Extremity: Positive for: Other (scratches to upper extremities noted) Lower Extremity: Positive for: Other (1+ pitting edema to bilateral lower extremities ) Neurological: Positive for: Other (responsive to pain, corneal reflex, gag and cough reflexes intact, pupils reactive to light) Skin: Positive for: Warm, Dry Psychiatric: Positive for: Alert - Medications Active Medications: Active Medications Generic Name Dose Route Start Last Admin Trade Name Freq PRN Reason Stop Dose Admin Emollient Ointment 5 gm 12/27/16 21:16 01/02/17 17:40 Vaseline Oint TOP 5 gm QID PRN Administration Hydroxychloroquine Sulfate 200 mg 12/23/16 10:00 01/02/17 17:40 Plaquenil PO 200 mg BID [facility] Administration Azithromycin 500 mg/ Sodium 250 mls @ 250 mls/hr 12/23/16 10:00 01/02/17 11:15 Chloride IVPB 250 mls/hr DAILY [facility] Administration Propofol 100 mls @ 1.71 mls/hr 12/25/16 11:07 01/02/17 08:10 Diprivan IV 3.42 mls/hr .Q24H PRN Administration TITRATE PER MD ORDER Protocol 5 MCG/KG/MIN Cefepime HCl 100 mls @ 100 mls/hr 12/29/16 10:00 01/02/17 10:00 Maxipime Iv 2 Gm Premix IVPB 01/03/17 10:01 100 mls/hr Q24H [facility] Administration Sodium Bicarbonate 100 meq/ 1,000 mls @ 75 mls/hr 12/31/16 11:00 01/02/17 16:30 Dextrose IV Not Given .[id number] [facility] Milrinone Lactate/Dextrose 20 100 mls @ 6.3 mls/hr 12/31/16 11:58 01/02/17 16: 27 mg/ Dextrose IV 6.3 mls/hr .[id number] [facility] Administration 0.375 MCG/KG/MIN Norepinephrine Bitartrate 8 mg 258 mls @ 38.7 mls/hr 12/31/16 22:46 01/02/17 19 :05 / Sodium Chloride IV 19.37 mcg/min .Q6H40M PRN Titration TITRATE PER MD ORDER Protocol 20 MCG/MIN Micafungin Sodium 100 mg/ 100 mls @ 100 mls/hr 01/01/17 16:30 01/02/17 19:00 Sodium Chloride IV 100 mls/hr Q24H [facility] Administration Lorazepam 1 mg 01/01/17 20:56 01/02/17 06:02 Ativan IVP 1 mg Q3H PRN Administration Anxiety Nystatin 1 applic 01/01/17 10:15 01/02/17 17:42 Nystop Topical Powder TOP 1 appl BID [facility] Administration Pantoprazole Sodium 40 mg 12/30/16 10:00 01/02/17 09:19 Protonix Inj IVP 40 mg DAILY [facility] Administration - Patient Studies Lab Studies: Lab Studies 01/02/17 01/02/17 12/31/16 Range/Units 06:36 04:35 08:43 WBC 12.8 H (4.8-10.8) K/uL RBC 2.32 L (3.80-5.20) Mil/uL Hgb 7.5 L (11.0-16.0) g/dL Hct 22.8 L (34.0-47.0) % MCV 98.2 D (81.0-99.0) fL MCH 32.1 H (27.0-31.0) pg MCHC 32.6 L (33.0-37.0) g/dL RDW 21.9 H (11.5-14.5) % Plt Count 93 L D (130-400) K/uL MPV 10.3 (7.2-11.7) fL Neut % (Auto) 80.5 H (50.0-75.0) % Lymph % (Auto) 11.2 L (20.0-40.0) % [place] % (Auto) 7.1 (0.0-10.0) % Eos % (Auto) 0.6 (0.0-4.0) % Baso % (Auto) 0.6 (0.0-2.0) % Neut # 10.3 H (1.8-7.0) K/uL Lymph # 1.4 (1.0-4.3) K/uL [place] # 0.9 H (0.0-0.8) K/uL Eos # 0.1 (0.0-0.7) K/uL Baso # 0.1 (0.0-0.2) K/uL Puncture Site Rb pCO2 35 (35-45) mm/Hg pO2 55 L (80-100) mm/Hg HCO3 26.3 (21-28) mmol/L ABG pH 7.47 H (7.35-7.45) ABG Total CO2 26.6 (22-28) mmol/L ABG O2 Saturation 94.5 L (95-98) % ABG Base Excess 1.8 (-2.0-3.0) mmol/L ABG Hemoglobin 7.9 L (11.7-17.4) g/dL ABG Carboxyhemoglobin 2.6 H (0.5-1.5) % POC ABG HHb (Measured) 5.3 H (0.0-5.0) % ABG Methemoglobin 1.0 (0.0-3.0) % Billy Test Na A-a O2 Difference 472.0 mm/Hg Respiratory Index 8.6 Hgb O2 Saturation 91.1 L (95.0-98.0) % Mechanical Rate 16 FiO2 80.0 % Tidal Volume 500 PEEP 5 Sodium 138 (132-148) mmol/L Potassium 3.3 L (3.6-5.2) mmol/L Chloride 102 (98-107) mmol/L Carbon Dioxide 24 (22-30) mmol/L Anion Gap 15 (10-20) BUN 37 H (7-17) mg/dL Creatinine 2.6 H (0.7-1.2) MG/DL Est GFR ( Amer) 23 Est GFR (Non-Af Amer) 19 Random Glucose 97 (65-105) mg/dL Calcium 7.0 L (8.6-10.4) mg/dl Phosphorus 2.5 (2.5-4.5) mg/dL Magnesium 1.5 L (1.6-2.3) mg/dL Total Bilirubin 5.4 H (0.2-1.3) mg/dL AST 92 H D (14-36) U/L ALT 113 H D (9-52) U/L Alkaline Phosphatase 95 (38-126) U/L Total Protein 5.0 L (6.3-8.3) g/dL Albumin 2.0 L (3.5-5.0) g/dL Globulin 3.0 (2.2-3.9) gm/dL Albumin/Globulin Ratio 0.6 L (1.0-2.1) Blood Type B POSITIVE Blood Type Confirm B POSITIVE Antibody Screen Negative Laboratory Results - last 24 hr 12/31/16 01/02/17 01/02/17 08:43 04:35 06:36 WBC 12.8 H RBC 2.32 L Hgb 7.5 L Hct 22.8 L MCV 98.2 D MCH 32.1 H MCHC 32.6 L RDW 21.9 H Plt Count 93 L D MPV 10.3 Neut % (Auto) 80.5 H Lymph % (Auto) 11.2 L [place] % (Auto) 7.1 Eos % (Auto) 0.6 Baso % (Auto) 0.6 Neut # 10.3 H Lymph # 1.4 [place] # 0.9 H Eos # 0.1 Baso # 0.1 Puncture Site Rb pCO2 35 pO2 55 L HCO3 26.3 ABG pH 7.47 H ABG Total CO2 26.6 ABG O2 Saturation 94.5 L ABG Base Excess 1.8 ABG Hemoglobin 7.9 L ABG Carboxyhemoglobin 2.6 H POC ABG HHb (Measured) 5.3 H ABG Methemoglobin 1.0 Billy Test Na A-a O2 Difference 472.0 Respiratory Index 8.6 Hgb O2 Saturation 91.1 L Mechanical Rate 16 FiO2 80.0 Tidal Volume 500 PEEP 5 Sodium 138 Potassium 3.3 L Chloride 102 Carbon Dioxide 24 Anion Gap 15 BUN 37 H Creatinine 2.6 H Est GFR ( Amer) 23 Est GFR (Non-Af Amer) 19 Random Glucose 97 Calcium 7.0 L Phosphorus 2.5 Magnesium 1.5 L Total Bilirubin 5.4 H AST 92 H D ALT 113 H D Alkaline Phosphatase 95 Total Protein 5.0 L Albumin 2.0 L Globulin 3.0 Albumin/Globulin Ratio 0.6 L Blood Type B POSITIVE Blood Type Confirm B POSITIVE Antibody Screen Negative Fingerstick Blood Sugar Results: 105 Review of Systems - Review of Systems Systems not reviewed;Unavailable: Intubated Critical Care Progress Note - Ventilator Checklist Head of Bed 30 Degrees: Yes Daily Spontaneous Breathing Trial: No PUD Prophalyxis: Yes DVT Prophylaxis: Yes - [facility] Assessment/Plan (1) Respiratory failure requiring intubation Current Visit: Yes Status: Acute Comment: Continue ventilatory support Worsening bilateral infiltrate noted On antibiotics per ID Follow-up culture and sensitivity Reduce FiO2 as tolerated and increase PEEP (2) VERONICA (acute kidney injury) Current Visit: Yes Status: Acute Comment: Continue hemodialysis (3) CHF (congestive heart failure) Current Visit: Yes Status: Acute Comment: On MILRINONE DRIP (4) Pneumonia Current Visit: Yes Status: Acute (5) Septic shock Current Visit: Yes Status: Acute
[2017-01-03] MEDS: Sodium Bicarbonate 8.4% 100 MEQ in Dextrose 5% In Water 900 ML IV SCH ×2 (00:45→05:44)
[2017-01-03] MEDS: Milrinone 20 MG in Dextrose 5% In Water 80 ML IV SCH ×3 (03:30→19:30)
[2017-01-03 05:36] LABS: ABG ALLEN TEST POS; ABG MECHANICAL RATE 16; ARTERIAL BLOOD HGB O2 SAT 96.1 % (95.0-98.0); ATERIAL BLOOD GAS PEEP 5; DRAW SITE RR; HHB 0.4 % (0.0-5.0); METHEMOGLOBIN 1.5 % (0.0-3.0)
[2017-01-03] MEDS: Petrolatum Oint Foilpak (5 gm) TOP PRN (06:30)
[2017-01-03 06:44] LABS: BASO # 0.1 K/uL (0.0-0.2); BASO % 0.5 % (0.0-2.0); EOS % 0.1 % (0.0-4.0); LYMPH # 1.4 K/uL (1.0-4.3); MEAN CELL VOLUME 93.8 fL (81.0-99.0); MEAN CORPUSCULAR HEMOGLOBIN 31.1 pg (27.0-31.0); MEAN CORPUSCULAR HGB CONC 33.2 g/dL (33.0-37.0); MEAN PLATELET VOLUME 10.5 fL (7.2-11.7); MONO # 0.6 K/uL (0.0-0.8); MONO % 4.7 % (0.0-10.0); NRBC % 1.6 % (0.0-2.0); RED CELL DISTRIBUTION WIDTH 19.8 % (11.5-14.5); WHITE BLOOD COUNT 13.7 K/uL (4.8-10.8)
[2017-01-03 06:56] LABS: POTASSIUM 3.3 mmol/L (3.6-5.2)
[2017-01-03 06:59] LABS: ALB/GLOB RATIO 0.6 (1.0-2.1); BILIRUBIN,TOTAL 5.2 mg/dL (0.2-1.3); PHOSPHOROUS 1.7 mg/dL (2.5-4.5); TOTAL PROTEIN 4.8 g/dL (6.3-8.3)
[2017-01-03 07:00] LABS: CALCIUM 6.6 mg/dl (8.6-10.4); MAGNESIUM 1.6 mg/dL (1.6-2.3)
--- NOTE | 2017-01-03 09:02 | CP.PCM.PN ---
Subjective - Date & Time of Evaluation Date of Evaluation: 01/03/17 Time of Evaluation: 08:55 Objective - Vital Signs/Intake and Output Vital Signs (last 24 hours): Temp Pulse Resp BP Pulse Ox 98.5 F 123 H 24 87/49 L 100 01/03/17 04:00 01/03/17 07:29 01/03/17 07:29 01/03/17 07:29 01/03/17 07:29 Intake and Output: 01/03/17 01/03/17 06:59 18:59 Intake Total 1222.0 Balance 1222.0 - Medications Medications: Current Medications Emollient Ointment (Vaseline Oint) 5 gm TOP QID PRN Last Admin: 01/03/17 06:30 Dose: 5 gm Hydroxychloroquine Sulfate (Plaquenil) 200 mg PO BID [facility] Last Admin: 01/02/17 17:40 Dose: 200 mg Azithromycin 500 mg/ Sodium (Chloride) 250 mls @ 250 mls/hr IVPB DAILY [facility] Last Admin: 01/02/17 11:15 Dose: 250 mls/hr Propofol (Diprivan) 100 mls @ 1.71 mls/hr IV .Q24H PRN; Protocol; 5 MCG/KG/MIN PRN Reason: TITRATE PER MD ORDER Last Admin: 01/03/17 08:14 Dose: 3.42 mls/hr Cefepime HCl (Maxipime Iv 2 Gm Premix) 100 mls @ 100 mls/hr IVPB Q24H [facility] Stop: 01/03/17 10:01 Last Admin: 01/02/17 10:00 Dose: 100 mls/hr Sodium Bicarbonate 100 meq/ (Dextrose) 1,000 mls @ 75 mls/hr IV .[id number] [facility] Last Admin: 01/03/17 05:44 Dose: Not Given Milrinone Lactate/Dextrose 20 (mg/ Dextrose) 100 mls @ 6.3 mls/hr IV .[id number] [facility] PRN Reason: 0.375 MCG/KG/MIN Last Admin: 01/03/17 03:30 Dose: Not Given Micafungin Sodium 100 mg/ (Sodium Chloride) 100 mls @ 100 mls/hr IV Q24H [facility] Last Admin: 01/02/17 19:00 Dose: 100 mls/hr Norepinephrine Bitartrate 8 mg (/ Sodium Chloride) 258 mls @ 38.7 mls/hr IV .Q6H40M PRN; Protocol; 20 MCG/MIN PRN Reason: TITRATE PER MD ORDER Last Admin: 01/03/17 03:15 Dose: 37.5 mls/hr Lorazepam (Ativan) 1 mg IVP Q3H PRN PRN Reason: Anxiety Last Admin: 01/02/17 06:02 Dose: 1 mg Nystatin (Nystop Topical Powder) 1 applic TOP BID [facility] Last Admin: 01/02/17 17:42 Dose: 1 appl Pantoprazole Sodium (Protonix Inj) 40 mg IVP DAILY [facility] Last Admin: 01/02/17 09:19 Dose: 40 mg - Labs Labs: 01/03/17 06:28 01/03/17 06:28 PT 17.7 SECONDS (9.7-12.2) H 12/30/16 10:43 INR 1.6 12/30/16 10:43 APTT 34 SECONDS (21-34) D 12/25/16 06:11
[2017-01-03] MEDS ORDERED: Dexmedetomidine Hydrochloride 200 MCG in Sodium Chloride 0.9% 48 ML IVPB PRN (09:58)
[2017-01-03] MEDS ORDERED: Sodium Phosphate 15 MMOLE in Sodium Chloride 0.9% 250 ML IVPB ONE (10:21)
[2017-01-03] MEDS: Cefepime IV 2 gm in Dextrose 100 ML IVPB SCH ×2 (10:58→11:24)
--- NOTE | 2017-01-03 12:43 | CP.PCM.PN ---
<Ellen Iqbal - Last Filed: 01/03/17 12:47> Subjective - Date & Time of Evaluation Date of Evaluation: 01/03/17 Time of Evaluation: 12:40 - Subjective Subjective: Gastroenterology Fellow/PGY4 Progress Note Patient intubated, continued vasopressor requirement. Started on dialysis. Nursing reports black stool. Unable to complete a 12-point review of systems while sedated on ventilator support. Objective - Vital Signs/Intake and Output Vital Signs (last 24 hours): Temp Pulse Resp BP Pulse Ox 98.9 F 125 H 25 H 95/50 L 97 01/03/17 08:00 01/03/17 10:59 01/03/17 10:59 01/03/17 10:59 01/03/17 10:59 Intake and Output: 01/03/17 01/03/17 06:59 18:59 Intake Total 1222.0 366.6 Balance 1222.0 366.6 - Medications Medications: Current Medications Emollient Ointment (Vaseline Oint) 5 gm TOP QID PRN Last Admin: 01/03/17 06:30 Dose: 5 gm Hydroxychloroquine Sulfate (Plaquenil) 200 mg PO BID [facility] Last Admin: 01/03/17 11:01 Dose: 200 mg Azithromycin 500 mg/ Sodium (Chloride) 250 mls @ 250 mls/hr IVPB DAILY [facility] Last Admin: 01/02/17 11:15 Dose: 250 mls/hr Milrinone Lactate/Dextrose 20 (mg/ Dextrose) 100 mls @ 6.3 mls/hr IV .[id number] [facility] PRN Reason: 0.375 MCG/KG/MIN Last Admin: 01/03/17 10:30 Dose: 6.3 mls/hr Micafungin Sodium 100 mg/ (Sodium Chloride) 100 mls @ 100 mls/hr IV Q24H [facility] Last Admin: 01/02/17 19:00 Dose: 100 mls/hr Norepinephrine Bitartrate 8 mg (/ Sodium Chloride) 258 mls @ 38.7 mls/hr IV .Q6H40M PRN; Protocol; 20 MCG/MIN PRN Reason: TITRATE PER MD ORDER Last Admin: 01/03/17 10:59 Dose: 37.5 mls/hr Dexmedetomidine HCl 200 mcg/ (Sodium Chloride) 50 mls @ 3.25 mls/hr IVPB TITR PRN; Protocol; 0.2 MCG/KG/HR PRN Reason: Agitation Last Admin: 01/03/17 11:00 Dose: 3.25 mls/hr Cefepime HCl (Maxipime Iv 2 Gm Premix) 100 mls @ 200 mls/hr IVPB Q24H [facility] Stop: 01/08/17 10:31 Last Admin: 01/03/17 11:24 Dose: Not Given Sodium Phosphate 15 mmole/ (Sodium Chloride) 255 mls @ 50 mls/hr IVPB .Q5H6M ONE Stop: 01/03/17 15:26 Last Admin: 01/03/17 11:01 Dose: 50 mls/hr Lorazepam (Ativan) 1 mg IVP Q3H PRN PRN Reason: Anxiety Last Admin: 01/02/17 06:02 Dose: 1 mg Nystatin (Nystop Topical Powder) 1 applic TOP BID [facility] Last Admin: 01/03/17 11:05 Dose: 1 appl Pantoprazole Sodium (Protonix Inj) 40 mg IVP DAILY [facility] Last Admin: 01/03/17 11:21 Dose: 40 mg - Labs Labs: 01/03/17 06:28 01/03/17 06:28 PT 17.7 SECONDS (9.7-12.2) H 12/30/16 10:43 INR 1.6 12/30/16 10:43 APTT 34 SECONDS (21-34) D 12/25/16 06:11 - Constitutional Appears: Chronically Ill, Other - Head Exam Head Exam: ATRAUMATIC, NORMOCEPHALIC - Eye Exam Eye Exam: PERRL Pupil Exam: PERRL. absent: Miosis, Mydriatic - ENT Exam ENT Exam: Mucous Membranes Dry, Normal Oropharynx - Neck Exam Neck Exam: Normal Inspection - Respiratory Exam Respiratory Exam: Clear to Ausculation Bilateral. absent: Rales, Rhonchi, Wheezes - Cardiovascular Exam Cardiovascular Exam: RRR, +S1, +S2. absent: Gallop, Rubs - GI/Abdominal Exam GI & Abdominal Exam: Soft, Normal Bowel Sounds. absent: Distended, Firm, Guarding, Rigid, Tenderness, Organomegaly, Rebound - Extremities Exam Extremities Exam: Pedal Edema. absent: Full ROM Assessment and Plan - Assessment and Plan (Free Text) Assessment: 61 year old female with history of CVA, SLE, Hypertension, and CHF with AICD placement presenting with shortness of breath. GI consultation for elevated LFTs. CT Pancreas without pancreatic mass or biliary obstruction but showing innumerable small liver nodules up to 7mm in size. Active treatment of ventilator dependent hypoxic respiratory failure on 12/24 secondary to community acquired pneumonia complicated by volume overload secondary to CHF decompensation, EF 26% with severe pulmonary hypertension, worsening metabolic acidosis, renal failure, and septic shock secondary to CAP/Ecoli UTI. No prior EGD or colonoscopy. Ventilator dependent hypoxic respiratory failure 2/2 RUL CAP/ CHF decompensation /severe pulmonary hypertension Septic shock 2/2 CAP/UTI Renal failure on hemodialysis Acute on chronic anemia s/p 1U (12/31), 1U (01/02) Plan: >reconsult for black stools on 01/03 >FOBT positive 12/31 >appropriate response to transfusions >anemia multifactorial- possible PUD, renal failure >rectal exam- black stools >continue PPI IV BID >nephrology managing- hemodialysis >ICU managing- vasopressor support >on Cefepime and Azithromycin >poor prognosis, rapid decline in critical clinical status >further recommendations based on clinical course >endoscopic evaluation not indicated with hemodynamic instability on multiple vasopressors and appropriate response to transfusions <Kirill Garcia MD - Last Filed: 01/03/17 13:17> Objective - Vital Signs/Intake and Output Vital Signs (last 24 hours): Temp Pulse Resp BP Pulse Ox 98.9 F 125 H 25 H 95/50 L 97 01/03/17 08:00 01/03/17 10:59 01/03/17 10:59 01/03/17 10:59 01/03/17 10:59 Intake and Output: 01/03/17 01/03/17 06:59 18:59 Intake Total 1222.0 366.6 Balance 1222.0 366.6 - Medications Medications: Current Medications Emollient Ointment (Vaseline Oint) 5 gm TOP QID PRN Last Admin: 01/03/17 06:30 Dose: 5 gm Hydroxychloroquine Sulfate (Plaquenil) 200 mg PO BID [facility] Last Admin: 01/03/17 11:01 Dose: 200 mg Azithromycin 500 mg/ Sodium (Chloride) 250 mls @ 250 mls/hr IVPB DAILY [facility] Last Admin: 01/03/17 12:49 Dose: 250 mls/hr Milrinone Lactate/Dextrose 20 (mg/ Dextrose) 100 mls @ 6.3 mls/hr IV .[id number] [facility] PRN Reason: 0.375 MCG/KG/MIN Last Admin: 01/03/17 10:30 Dose: 6.3 mls/hr Micafungin Sodium 100 mg/ (Sodium Chloride) 100 mls @ 100 mls/hr IV Q24H [facility] Last Admin: 01/02/17 19:00 Dose: 100 mls/hr Norepinephrine Bitartrate 8 mg (/ Sodium Chloride) 258 mls @ 38.7 mls/hr IV .Q6H40M PRN; Protocol; 20 MCG/MIN PRN Reason: TITRATE PER MD ORDER Last Titration: 01/03/17 11:00 Dose: 21.34 mcg/min Dexmedetomidine HCl 200 mcg/ (Sodium Chloride) 50 mls @ 3.25 mls/hr IVPB TITR PRN; Protocol; 0.2 MCG/KG/HR PRN Reason: Agitation Last Admin: 01/03/17 11:00 Dose: 3.25 mls/hr Cefepime HCl (Maxipime Iv 2 Gm Premix) 100 mls @ 200 mls/hr IVPB Q24H [facility] Stop: 01/08/17 10:31 Last Admin: 01/03/17 11:24 Dose: Not Given Sodium Phosphate 15 mmole/ (Sodium Chloride) 255 mls @ 50 mls/hr IVPB .Q5H6M ONE Stop: 01/03/17 15:26 Last Admin: 01/03/17 11:01 Dose: 50 mls/hr Lorazepam (Ativan) 1 mg IVP Q3H PRN PRN Reason: Anxiety Last Admin: 01/03/17 12:45 Dose: 1 mg Nystatin (Nystop Topical Powder) 1 applic TOP BID [facility] Last Admin: 01/03/17 11:05 Dose: 1 appl Pantoprazole Sodium (Protonix Inj) 40 mg IVP DAILY [facility] Last Admin: 01/03/17 11:21 Dose: 40 mg - Labs Labs: 01/03/17 06:28 01/03/17 06:28 PT 17.7 SECONDS (9.7-12.2) H 12/30/16 10:43 INR 1.6 12/30/16 10:43 APTT 34 SECONDS (21-34) D 12/25/16 06:11 Attending/Attestation - Attestation I have personally seen and examined this patient.: Yes I have fully participated in the care of the patient.: Yes I have reviewed all pertinent clinical information, including history, physical exam and plan: Yes Notes (Text): 01/03/17 13:13 Patient seen and examined with GI fellow on rounds this am. This is a 61 year old female with history of CVA, SLE, Hypertension, and CHF with AICD placement presenting with shortness of breath s/p ventilator dependent hypoxic respiratory failure secondary to community acquired pneumonia complicated by volume overload secondary to CHF decompensation, EF 26% with severe pulmonary hypertension, worsening metabolic acidosis, renal failure, and septic shock secondary to CAP/Ecoli UTI. GI was initially following for abnormal LFt with no abnormal serologies. Likely reason for abnormal LFT was congestive hepatopathy and sepsis. Today reconsulted for black stools with drop in hb s/p 1 unit PRBC with appropriate response and no s/s of overt GI bleeding. Will monitor H/Hct closely and signs of overt bleeding. Continue PPI bid. Supportive care. Poor prognosis.
[2017-01-03] MEDS: Azithromycin 500 MG in Sodium Chloride 0.9% 250 ML IVPB SCH (12:49)
--- NOTE | 2017-01-03 15:33 | RAD ---
PROCEDURE: CHEST RADIOGRAPH, 1 VIEW HISTORY: vented COMPARISON: Comparison chest 01/02/2017. FINDINGS: LUNGS: Diffuse bilateral infiltrates with suspected small left effusion PLEURA: No pneumothorax or pleural fluid seen. CARDIOVASCULAR: Normal. OSSEOUS STRUCTURES: No significant abnormalities. VISUALIZED UPPER ABDOMEN: Normal. OTHER FINDINGS: In situ ETT, the tip of which lies approximately 5.4 cm above isauro. NGT is present, the tip of which is not seen on this study however distal aspect does not appear to lie below EG junction. No change right IJ central venous line with tip in the SVC/RA junction. IMPRESSION: Support lines and tubes as above. Diffuse bilateral infiltrates again noted with suspected small left effusion
--- NOTE | 2017-01-03 15:40 | CP.PCM.PN ---
Subjective - Date & Time of Evaluation Date of Evaluation: 01/03/17 Time of Evaluation: 08:00 - Subjective Subjective: 61F with extensive medical history pertinent for lupus, heart failure with AICD , stroke with left-sided deficit, and HTN admitted to the ICU s/p agonal breathing requiring intubation on medical floor. Patient being treated for sepsis likely secondary to aspiration pneumonia. Patient metabolic status worsening secondary to underlying sepsis and worsening kidney function. Patient started on hemodialysis for worsening renal function and acidosis Objective - Vital Signs/Intake and Output Vital Signs (last 24 hours): Temp Pulse Resp BP Pulse Ox 99.2 F 136 H 25 H 82/48 L 100 01/03/17 12:00 01/03/17 14:18 01/03/17 10:59 01/03/17 14:18 01/03/17 14:18 Intake and Output: 01/03/17 01/03/17 06:59 18:59 Intake Total 1222.0 1087.4 Balance 1222.0 1087.4 - Medications Medications: Current Medications Emollient Ointment (Vaseline Oint) 5 gm TOP QID PRN Last Admin: 01/03/17 06:30 Dose: 5 gm Hydroxychloroquine Sulfate (Plaquenil) 200 mg PO BID [facility] Last Admin: 01/03/17 11:01 Dose: 200 mg Azithromycin 500 mg/ Sodium (Chloride) 250 mls @ 250 mls/hr IVPB DAILY [facility] Last Admin: 01/03/17 12:49 Dose: 250 mls/hr Milrinone Lactate/Dextrose 20 (mg/ Dextrose) 100 mls @ 6.3 mls/hr IV .[id number] [facility] PRN Reason: 0.375 MCG/KG/MIN Last Admin: 01/03/17 10:30 Dose: 6.3 mls/hr Micafungin Sodium 100 mg/ (Sodium Chloride) 100 mls @ 100 mls/hr IV Q24H [facility] Last Admin: 01/02/17 19:00 Dose: 100 mls/hr Norepinephrine Bitartrate 8 mg (/ Sodium Chloride) 258 mls @ 38.7 mls/hr IV .Q6H40M PRN; Protocol; 20 MCG/MIN PRN Reason: TITRATE PER MD ORDER Last Titration: 01/03/17 14:00 Dose: 24.23 mcg/min Dexmedetomidine HCl 200 mcg/ (Sodium Chloride) 50 mls @ 3.25 mls/hr IVPB TITR PRN; Protocol; 0.2 MCG/KG/HR PRN Reason: Agitation Last Titration: 01/03/17 13:00 Dose: 0 mcg/kg/hr Cefepime HCl (Maxipime Iv 2 Gm Premix) 100 mls @ 200 mls/hr IVPB Q24H [facility] Stop: 01/08/17 10:31 Last Admin: 01/03/17 11:24 Dose: Not Given Lorazepam (Ativan) 1 mg IVP Q3H PRN PRN Reason: Anxiety Last Admin: 01/03/17 12:45 Dose: 1 mg Nystatin (Nystop Topical Powder) 1 applic TOP BID [facility] Last Admin: 01/03/17 11:05 Dose: 1 appl Pantoprazole Sodium (Protonix Inj) 40 mg IVP DAILY [facility] Last Admin: 01/03/17 11:21 Dose: 40 mg - Labs Labs: 01/03/17 06:28 01/03/17 06:28 PT 17.7 SECONDS (9.7-12.2) H 12/30/16 10:43 INR 1.6 12/30/16 10:43 APTT 34 SECONDS (21-34) D 12/25/16 06:11 - Constitutional Appears: Confused, Cachectic, Chronically Ill - Head Exam Head Exam: NORMOCEPHALIC - Eye Exam Eye Exam: absent: Scleral icterus - ENT Exam ENT Exam: Mucous Membranes Dry - Neck Exam Neck Exam: absent: Lymphadenopathy - Respiratory Exam Respiratory Exam: Decreased Breath Sounds, Rhonchi - Cardiovascular Exam Cardiovascular Exam: Tachycardia, REGULAR RHYTHM, +S1, +S2 - GI/Abdominal Exam GI & Abdominal Exam: Distended, Soft - Rectal Exam Rectal Exam: Deferred Assessment and Plan (1) VERONICA (acute kidney injury) Status: Acute (2) Abnormal thyroid blood test Status: Acute (3) CHF (congestive heart failure) Status: Acute (4) Dyspnea Status: Acute (5) HTN (hypertension) Status: Acute (6) Lupus (systemic lupus erythematosus) Status: Acute (7) Pneumonia due to aerobic bacteria Status: Acute (8) Septic shock Status: Acute (9) Respiratory failure Status: Acute (10) Respiratory failure of more than 28 days duration Status: Acute (11) Respiratory failure requiring intubation Status: Acute
[2017-01-03] MEDS: Micafungin 100 MG in Sodium Chloride 0.9% 100 ML IV SCH (15:48)
--- NOTE | 2017-01-03 16:54 | CP.CCUPN ---
CCU Subjective - Physician Review Events Since Last Encounter (Free Text): 01/03/17 16:54 patient is intubated and sedated on vent, we'll try to lighten sedation. CCU Objective - Vital Signs / Intake & Output Vital Signs (Last 4 hours): Vital Signs Pulse BP Pulse Ox 01/03/17 14:18 136 H 82/48 L 100 01/03/17 13:59 135 H 100 01/03/17 13:56 136 H 72/43 L 100 01/03/17 13:29 136 H 81/43 L 100 01/03/17 13:14 141 H 84/54 L 98 01/03/17 13:00 144 H 95 01/03/17 12:53 145 H 114/67 92 L Intake and Output (Last 8hrs): Intake & Output 01/03/17 01/03/17 01/03/17 06:59 14:59 22:59 Intake Total 733.2 1087.4 Balance 733.2 1087.4 Weight 143 lb 4.807 oz Intake: Intake, IV Amount 733.2 1087.4 Right Proximal Port 20.4 20.0 Internal Jugular Right Medial Port 37.8 50.4 Internal Jugular Right Distal Port 450 350 Internal Jugular Right Distal Port 225.0 317.0 Right Femoral 350 - Physical Exam Physical Exam Limitations: Positive for: Altered Mental Status Head: Positive for: Atraumatic, Normocephalic Pupils: Positive for: PERRL Extroacular Muscles: Positive for: EOMI Conjunctiva: Positive for: Normal Mouth: Positive for: Moist Mucous Membranes Pharnyx: Positive for: Other (intubated, OG tube) Respiratory/Chest: Positive for: Good Air Exchange, Other (intubated) Cardiovascular: Positive for: Normal S1, S2. Negative for: Murmurs Abdomen: Positive for: Normal Bowel Sounds. Negative for: Tenderness, Distention Upper Extremity: Positive for: Other (scratches to upper extremities noted) Lower Extremity: Positive for: Other (1+ pitting edema to bilateral lower extremities ) Neurological: Positive for: Other (responsive to pain, corneal reflex, gag and cough reflexes intact, pupils reactive to light) Skin: Positive for: Warm, Dry Psychiatric: Positive for: Alert - Medications Active Medications: Active Medications Generic Name Dose Route Start Last Admin Trade Name Freq PRN Reason Stop Dose Admin Emollient Ointment 5 gm 12/27/16 21:16 01/03/17 06:30 Vaseline Oint TOP 5 gm QID PRN Administration Hydroxychloroquine Sulfate 200 mg 12/23/16 10:00 01/03/17 11:01 Plaquenil PO 200 mg BID [facility] Administration Azithromycin 500 mg/ Sodium 250 mls @ 250 mls/hr 12/23/16 10:00 01/03/17 12:49 Chloride IVPB 250 mls/hr DAILY [facility] Administration Milrinone Lactate/Dextrose 20 100 mls @ 6.3 mls/hr 12/31/16 11:58 01/03/17 10: 30 mg/ Dextrose IV 6.3 mls/hr .[id number] [facility] Administration 0.375 MCG/KG/MIN Micafungin Sodium 100 mg/ 100 mls @ 100 mls/hr 01/01/17 16:30 01/03/17 15:48 Sodium Chloride IV 100 mls/hr Q24H [facility] Administration Norepinephrine Bitartrate 8 mg 258 mls @ 38.7 mls/hr 01/02/17 23:30 01/03/17 15 :58 / Sodium Chloride IV 29.09 mcg/min .Q6H40M PRN Titration TITRATE PER MD ORDER Protocol 20 MCG/MIN Dexmedetomidine HCl 200 mcg/ 50 mls @ 3.25 mls/hr 01/03/17 09:58 01/03/17 13:00 Sodium Chloride IVPB 0 mcg/kg/hr TITR PRN Titration Agitation Protocol 0.2 MCG/KG/HR Cefepime HCl 100 mls @ 200 mls/hr 01/03/17 10:30 01/03/17 11:24 Maxipime Iv 2 Gm Premix IVPB 01/08/17 10:31 Not Given Q24H [facility] Vasopressin 40 units/ Sodium 40 mls @ 0.6 mls/hr 01/03/17 16:15 Chloride IV .Q24H [facility] Protocol 0.01 UNITS/MIN Lorazepam 1 mg 01/01/17 20:56 01/03/17 12:45 Ativan IVP 1 mg Q3H PRN Administration Anxiety Nystatin 1 applic 01/01/17 10:15 01/03/17 11:05 Nystop Topical Powder TOP 1 appl BID [facility] Administration Pantoprazole Sodium 40 mg 12/30/16 10:00 01/03/17 11:21 Protonix Inj IVP 40 mg DAILY [facility] Administration - Patient Studies Lab Studies: Lab Studies 01/03/17 01/03/17 Range/Units 06:28 05:07 WBC 13.7 H (4.8-10.8) K/uL RBC 2.88 L (3.80-5.20) Mil/uL Hgb 9.0 L (11.0-16.0) g/dL Hct 27.0 L (34.0-47.0) % MCV 93.8 D (81.0-99.0) fL MCH 31.1 H (27.0-31.0) pg MCHC 33.2 (33.0-37.0) g/dL RDW 19.8 H (11.5-14.5) % Plt Count 75 L (130-400) K/uL MPV 10.5 (7.2-11.7) fL Neut % (Auto) 84.7 H (50.0-75.0) % Lymph % (Auto) 10.0 L (20.0-40.0) % [place] % (Auto) 4.7 (0.0-10.0) % Eos % (Auto) 0.1 (0.0-4.0) % Baso % (Auto) 0.5 (0.0-2.0) % Neut # 11.6 H (1.8-7.0) K/uL Lymph # 1.4 (1.0-4.3) K/uL [place] # 0.6 (0.0-0.8) K/uL Eos # 0.0 (0.0-0.7) K/uL Baso # 0.1 (0.0-0.2) K/uL Puncture Site Rr pCO2 32 L (35-45) mm/Hg pO2 120 H (80-100) mm/Hg HCO3 26.4 (21-28) mmol/L ABG pH 7.50 H (7.35-7.45) ABG Total CO2 26.0 (22-28) mmol/L ABG O2 Saturation 99.6 H (95-98) % ABG Base Excess 1.9 (-2.0-3.0) mmol/L ABG Hemoglobin 8.2 L (11.7-17.4) g/dL ABG Carboxyhemoglobin 2.0 H (0.5-1.5) % POC ABG HHb (Measured) 0.4 (0.0-5.0) % ABG Methemoglobin 1.5 (0.0-3.0) % Billy Test Pos A-a O2 Difference 410.0 mm/Hg Respiratory Index 3.4 Hgb O2 Saturation 96.1 (95.0-98.0) % Mechanical Rate 16 FiO2 80.0 % Tidal Volume 500 PEEP 5 Sodium 131 L (132-148) mmol/L Potassium 3.3 L (3.6-5.2) mmol/L Chloride 95 L (98-107) mmol/L Carbon Dioxide 28 (22-30) mmol/L Anion Gap 11 (10-20) BUN 23 H (7-17) mg/dL Creatinine 1.8 H (0.7-1.2) MG/DL Est GFR ( Amer) 35 Est GFR (Non-Af Amer) 29 Random Glucose 83 (65-105) mg/dL Calcium 6.6 L (8.6-10.4) mg/dl Phosphorus 1.7 L (2.5-4.5) mg/dL Magnesium 1.6 (1.6-2.3) mg/dL Total Bilirubin 5.2 H (0.2-1.3) mg/dL AST 70 H D (14-36) U/L ALT 86 H D (9-52) U/L Alkaline Phosphatase 106 (38-126) U/L Total Protein 4.8 L (6.3-8.3) g/dL Albumin 1.8 L (3.5-5.0) g/dL Globulin 3.0 (2.2-3.9) gm/dL Albumin/Globulin Ratio 0.6 L (1.0-2.1) Laboratory Results - last 24 hr 01/03/17 01/03/17 05:07 06:28 WBC 13.7 H RBC 2.88 L Hgb 9.0 L Hct 27.0 L MCV 93.8 D MCH 31.1 H MCHC 33.2 RDW 19.8 H Plt Count 75 L MPV 10.5 Neut % (Auto) 84.7 H Lymph % (Auto) 10.0 L [place] % (Auto) 4.7 Eos % (Auto) 0.1 Baso % (Auto) 0.5 Neut # 11.6 H Lymph # 1.4 [place] # 0.6 Eos # 0.0 Baso # 0.1 Puncture Site Rr pCO2 32 L pO2 120 H HCO3 26.4 ABG pH 7.50 H ABG Total CO2 26.0 ABG O2 Saturation 99.6 H ABG Base Excess 1.9 ABG Hemoglobin 8.2 L ABG Carboxyhemoglobin 2.0 H POC ABG HHb (Measured) 0.4 ABG Methemoglobin 1.5 Billy Test Pos A-a O2 Difference 410.0 Respiratory Index 3.4 Hgb O2 Saturation 96.1 Mechanical Rate 16 FiO2 80.0 Tidal Volume 500 PEEP 5 Sodium 131 L Potassium 3.3 L Chloride 95 L Carbon Dioxide 28 Anion Gap 11 BUN 23 H Creatinine 1.8 H Est GFR ( Amer) 35 Est GFR (Non-Af Amer) 29 Random Glucose 83 Calcium 6.6 L Phosphorus 1.7 L Magnesium 1.6 Total Bilirubin 5.2 H AST 70 H D ALT 86 H D Alkaline Phosphatase 106 Total Protein 4.8 L Albumin 1.8 L Globulin 3.0 Albumin/Globulin Ratio 0.6 L Fingerstick Blood Sugar Results: 105 Review of Systems - Review of Systems Systems not reviewed;Unavailable: Intubated Critical Care Progress Note - Ventilator Checklist Head of Bed 30 Degrees: Yes Daily Sedation Vacation: Yes Daily Assessment of Readiness to Wean: Yes Daily Spontaneous Breathing Trial: Yes PUD Prophalyxis: Yes DVT Prophylaxis: Yes Assessment/Plan (1) Cardiogenic shock Assessment and plan: 61F with extensive medical history pertinent for lupus, heart failure with AICD , stroke with left-sided deficit, and HTN admitted to the ICU s/p agonal breathing requiring intubation on medical floor. Patient being treated for sepsis likely secondary to aspiration pneumonia. Patient metabolic status worsening secondary to underlying sepsis and worsening kidney function. Patient started on hemodialysis for worsening renal function and acidosis Neuro: Sedated with propofol, will stop propofol. We'll try to transition to Versed pushes. Pulm: Acute respiratory failure, on PRVC. CV: Cardiogenic shock with septic shock, continue milrinone drip and Levophed drip, will add vasopressin drip as hypotension is worsening. Hem: Thrombocytopenia secondary to sepsis. Patient has had continuing anemia despite blood transfusions, this could be secondary to critical illness or ongoing slow GI bleed with positive occult blood in stool. Colonoscopy at this time is not possible. We'll transfuse as needed. Renal: Acute renal failure now on dialysis, next dialysis scheduled for Wednesday. Stopping bicarbonate drip as patient is becoming alkaline anemic. Hypophosphatemic will supplement. Endo: No acute issues, will monitor blood sugars. Rheum: Lupus on Plaquenil, will stop as thrombocytopenia is a secondary adverse reaction to Plaquenil. GI: Nothing by mouth, Peptamen at goal. ID: Septic shock, UTI with Escherichia coli in urine. Continue cefepime, azithromycin, micafungin. DVT proph - held with possible current bleed, SCDs GI proph - Protonix noble for strict I/O's during acute illness Code status - full code Crtical Care Time spent 35 minutes Multi-disciplinary rounds were performed with house staff, nursing, speech therapy, respiratory therapy, pharmacy and nutrition with integrated input from the primary team/attending and other consulting services. The documented time is cumulative and includes review of patient data/exams/labs/chart review and examination of the patient on rounds and throughout the day; time is exclusive of any procedures or teaching time. Current Visit: Yes Status: Acute
[2017-01-04] MEDS: Milrinone 20 MG in Dextrose 5% In Water 80 ML IV SCH (04:15)
[2017-01-04 05:43] LABS: ABG ALLEN TEST POS; ABG MECHANICAL RATE 16; ARTERIAL BLOOD HGB O2 SAT 94.9 % (95.0-98.0); ATERIAL BLOOD GAS PEEP 5; CARBOXYHEMOGLOBIN 1.9 % (0.5-1.5); DRAW SITE RR; HHB 1.7 % (0.0-5.0); METHEMOGLOBIN 1.6 % (0.0-3.0)
[2017-01-04] MEDS: Petrolatum Oint Foilpak (5 gm) TOP PRN (05:49)
[2017-01-04 06:43] LABS: BASO # 0.1 K/uL (0.0-0.2); BASO % 0.3 % (0.0-2.0); EOS # 0.2 K/uL (0.0-0.7); EOS % 1.2 % (0.0-4.0); HEMATOCRIT 29.4 % (34.0-47.0); LYMPH # 1.1 K/uL (1.0-4.3); LYMPH % 6.3 % (20.0-40.0); MEAN CELL VOLUME 96.8 fL (81.0-99.0); MEAN CORPUSCULAR HEMOGLOBIN 31.8 pg (27.0-31.0); MEAN CORPUSCULAR HGB CONC 32.8 g/dL (33.0-37.0); MEAN PLATELET VOLUME 10.7 fL (7.2-11.7); MONO % 5.4 % (0.0-10.0); NRBC % 0.9 % (0.0-2.0); PLATELET COUNT 76 K/uL (130-400); RED CELL DISTRIBUTION WIDTH 21.6 % (11.5-14.5)
[2017-01-04 06:45] LABS: POTASSIUM 3.4 mmol/L (3.6-5.2)
[2017-01-04 06:47] LABS: BILIRUBIN,TOTAL 5.3 mg/dL (0.2-1.3)
[2017-01-04 06:48] LABS: ALB/GLOB RATIO 0.7 (1.0-2.1); CALCIUM 6.9 mg/dl (8.6-10.4); PHOSPHOROUS 2.5 mg/dL (2.5-4.5); TOTAL PROTEIN 4.8 g/dL (6.3-8.3)
[2017-01-04 06:49] LABS: MAGNESIUM 1.5 mg/dL (1.6-2.3)
--- NOTE | 2017-01-04 07:52 | CP.CCUPN ---
<Stephanie Echeverria - Last Filed: 01/04/17 07:52> CCU Subjective - Physician Review Subjective (Free Text): 12/28/16 20:48 Patient seen and examined at bedside. No acute distress. No acute events overnight per nursing. Patient back on AC/PRVC. Patient's persistent low BP halted attempts at a weaning trial. Patient able to follow commands. 12/29/16 15:52 Patient seen and examined at bedside. Per nursing decreased urine output. Patient began Milrinone drip yesterday at 0.5 mcg/kg/mi. Bp remains hypotensive but stable. 12/30/16 17:37 Patient seen and examined at bedside in no acute distress. Pt is intubated, on Milrinone drip, still low urine output . BP improved. Unable to obtain ROS at this point due to sedation. 12/31/16 18:19 Pt seen and examined at bedside . Patient's presentation appears to be worsening. Pt is intubated with continued low urine output. Current presentation as well as prognosis discussed with family members ( son and daughter-in law). Unable to obtain ROS at this time due to sedation. 01/01/17 08:26 Pt seen and examined at bedside . Patient's presentation remains the same. Pt is intubated with continued low urine output. Unable to obtain ROS at this time due to sedation. Prognosis discusses with son who wants full code status to remain. 01/01/17 22:03 CCU Objective - Vital Signs / Intake & Output Vital Signs (Last 4 hours): Vital Signs Pulse Resp BP Pulse Ox 01/04/17 07:10 141 H 26 H 116/63 98 01/04/17 07:00 140 H 19 97 01/04/17 06:26 138 H 23 96 01/04/17 06:25 139 H 22 96 01/04/17 06:10 137 H 20 106/67 99 01/04/17 06:00 137 H 22 98 01/04/17 05:12 134 H 21 108/64 98 01/04/17 05:00 134 H 34 H 96 01/04/17 04:34 127 H 99 01/04/17 04:30 130 H 29 H 99/58 L 97 01/04/17 04:15 130 H 28 H 99/58 L 98 03/20/17 04:09 132 H 99/58 L 98 01/04/17 04:00 132 H 98 Intake and Output (Last 8hrs): Intake & Output 01/03/17 01/04/17 01/04/17 22:59 06:59 14:59 Intake Total 1341.8 685.6 93.2 Output Total 200 100 Balance 1141.8 585.6 93.2 Weight 149 lb 0.52 oz Intake: Intake, IV Amount 1201.8 505.6 63.2 Right Proximal Port 3.6 4.8 0.6 Internal Jugular Right Medial Port 44.1 50.4 6.3 Internal Jugular Right Distal Port 660 Internal Jugular Right Distal Port 394.1 450.4 56.3 Right Femoral 100 Tube Feeding 90 180 30 Other 50 Output: Urine 200 100 Urethral ([place]) 200 100 Other: # Bowel Movements 1 - Physical Exam Head: Positive for: Atraumatic, Normocephalic Pupils: Positive for: PERRL Extroacular Muscles: Positive for: EOMI Conjunctiva: Positive for: Normal Mouth: Positive for: Moist Mucous Membranes Pharnyx: Positive for: Other (intubated, OG tube) Respiratory/Chest: Positive for: Good Air Exchange, Other (intubated) Cardiovascular: Positive for: Normal S1, S2. Negative for: Murmurs Abdomen: Positive for: Normal Bowel Sounds. Negative for: Tenderness, Distention Upper Extremity: Positive for: Other (scratches to upper extremities noted) Lower Extremity: Positive for: Other (1+ pitting edema to bilateral lower extremities ) Neurological: Positive for: Other (responsive to pain, corneal reflex, gag and cough reflexes intact, pupils reactive to light) Skin: Positive for: Warm, Dry Psychiatric: Positive for: Alert - Medications Active Medications: Active Medications Generic Name Dose Route Start Last Admin Trade Name Freq PRN Reason Stop Dose Admin Emollient Ointment 5 gm 12/27/16 21:16 01/04/17 05:49 Vaseline Oint TOP 5 gm QID PRN Administration Azithromycin 500 mg/ Sodium 250 mls @ 250 mls/hr 12/23/16 10:00 01/03/17 12:49 Chloride IVPB 250 mls/hr DAILY LINN Administration Milrinone Lactate/Dextrose 20 100 mls @ 6.3 mls/hr 12/31/16 11:58 01/04/17 04: 15 mg/ Dextrose IV 6.3 mls/hr .[id number] LINN Administration 0.375 MCG/KG/MIN Micafungin Sodium 100 mg/ 100 mls @ 100 mls/hr 01/01/17 16:30 01/03/17 15:48 Sodium Chloride IV 100 mls/hr Q24H LINN Administration Norepinephrine Bitartrate 8 mg 258 mls @ 38.7 mls/hr 01/02/17 23:30 01/04/17 04 :30 / Sodium Chloride IV 56.3 mls/hr .Q6H40M PRN Administration TITRATE PER MD ORDER Protocol 20 MCG/MIN Dexmedetomidine HCl 200 mcg/ 50 mls @ 3.25 mls/hr 01/03/17 09:58 01/03/17 13:00 Sodium Chloride IVPB 0 mcg/kg/hr TITR PRN Titration Agitation Protocol 0.2 MCG/KG/HR Cefepime HCl 100 mls @ 200 mls/hr 01/03/17 10:30 01/03/17 11:24 Maxipime Iv 2 Gm Premix IVPB 01/08/17 10:31 Not Given Q24H LINN Vasopressin 40 units/ Sodium 40 mls @ 0.6 mls/hr 01/03/17 16:15 01/03/17 16:15 Chloride IV 0.6 mls/hr .Q24H LINN Administration Protocol 0.01 UNITS/MIN Lorazepam 1 mg 01/01/17 20:56 01/04/17 05:30 Ativan IVP 1 mg Q3H PRN Administration Anxiety Nystatin 1 applic 01/01/17 10:15 01/03/17 18:40 Nystop Topical Powder TOP 1 appl BID LINN Administration Pantoprazole Sodium 40 mg 12/30/16 10:00 01/03/17 11:21 Protonix Inj IVP 40 mg DAILY LINN Administration - Patient Studies Lab Studies: Lab Studies 01/04/17 01/04/17 Range/Units 06:21 05:11 WBC 18.0 H (4.8-10.8) K/uL RBC 3.04 L (3.80-5.20) Mil/uL Hgb 9.7 L (11.0-16.0) g/dL Hct 29.4 L (34.0-47.0) % MCV 96.8 D (81.0-99.0) fL MCH 31.8 H (27.0-31.0) pg MCHC 32.8 L (33.0-37.0) g/dL RDW 21.6 H (11.5-14.5) % Plt Count 76 L (130-400) K/uL MPV 10.7 (7.2-11.7) fL Neut % (Auto) 86.8 H (50.0-75.0) % Lymph % (Auto) 6.3 L (20.0-40.0) % [place] % (Auto) 5.4 (0.0-10.0) % Eos % (Auto) 1.2 (0.0-4.0) % Baso % (Auto) 0.3 (0.0-2.0) % Neut # 15.7 H (1.8-7.0) K/uL Lymph # 1.1 (1.0-4.3) K/uL [place] # 1.0 H (0.0-0.8) K/uL Eos # 0.2 (0.0-0.7) K/uL Baso # 0.1 (0.0-0.2) K/uL Puncture Site Rr pCO2 41 (35-45) mm/Hg pO2 87 (80-100) mm/Hg HCO3 25.8 (21-28) mmol/L ABG pH 7.41 (7.35-7.45) ABG Total CO2 27.3 (22-28) mmol/L ABG O2 Saturation 98.2 H (95-98) % ABG Base Excess 1.2 (-2.0-3.0) mmol/L ABG Hemoglobin 9.8 L (11.7-17.4) g/dL ABG Carboxyhemoglobin 1.9 H (0.5-1.5) % POC ABG HHb (Measured) 1.7 (0.0-5.0) % ABG Methemoglobin 1.6 (0.0-3.0) % Billy Test Pos A-a O2 Difference 361.0 mm/Hg Respiratory Index 4.1 Hgb O2 Saturation 94.9 L (95.0-98.0) % Mechanical Rate 16 FiO2 70.0 % Tidal Volume 500 PEEP 5 Sodium 131 L (132-148) mmol/L Potassium 3.4 L (3.6-5.2) mmol/L Chloride 93 L (98-107) mmol/L Carbon Dioxide 27 (22-30) mmol/L Anion Gap 14 (10-20) BUN 27 H (7-17) mg/dL Creatinine 2.8 H (0.7-1.2) MG/DL Est GFR ( Amer) 21 Est GFR (Non-Af Amer) 17 Random Glucose 47 L (65-105) mg/dL Calcium 6.9 L (8.6-10.4) mg/dl Phosphorus 2.5 (2.5-4.5) mg/dL Magnesium 1.5 L (1.6-2.3) mg/dL Total Bilirubin 5.3 H (0.2-1.3) mg/dL AST 82 H (14-36) U/L ALT 73 H (9-52) U/L Alkaline Phosphatase 140 H D (38-126) U/L Total Protein 4.8 L (6.3-8.3) g/dL Albumin 1.9 L (3.5-5.0) g/dL Globulin 2.8 (2.2-3.9) gm/dL Albumin/Globulin Ratio 0.7 L (1.0-2.1) Laboratory Results - last 24 hr 01/04/17 01/04/17 05:11 06:21 WBC 18.0 H RBC 3.04 L Hgb 9.7 L Hct 29.4 L MCV 96.8 D MCH 31.8 H MCHC 32.8 L RDW 21.6 H Plt Count 76 L MPV 10.7 Neut % (Auto) 86.8 H Lymph % (Auto) 6.3 L [place] % (Auto) 5.4 Eos % (Auto) 1.2 Baso % (Auto) 0.3 Neut # 15.7 H Lymph # 1.1 [place] # 1.0 H Eos # 0.2 Baso # 0.1 Puncture Site Rr pCO2 41 pO2 87 HCO3 25.8 ABG pH 7.41 ABG Total CO2 27.3 ABG O2 Saturation 98.2 H ABG Base Excess 1.2 ABG Hemoglobin 9.8 L ABG Carboxyhemoglobin 1.9 H POC ABG HHb (Measured) 1.7 ABG Methemoglobin 1.6 Billy Test Pos A-a O2 Difference 361.0 Respiratory Index 4.1 Hgb O2 Saturation 94.9 L Mechanical Rate 16 FiO2 70.0 Tidal Volume 500 PEEP 5 Sodium 131 L Potassium 3.4 L Chloride 93 L Carbon Dioxide 27 Anion Gap 14 BUN 27 H Creatinine 2.8 H Est GFR ( Amer) 21 Est GFR (Non-Af Amer) 17 Random Glucose 47 L Calcium 6.9 L Phosphorus 2.5 Magnesium 1.5 L Total Bilirubin 5.3 H AST 82 H ALT 73 H Alkaline Phosphatase 140 H D Total Protein 4.8 L Albumin 1.9 L Globulin 2.8 Albumin/Globulin Ratio 0.7 L Fingerstick Blood Sugar Results: 105 <Prisca Massey - Last Filed: 01/04/17 15:40> CCU Subjective - Physician Review Events Since Last Encounter (Free Text): 01/04/17 15:39 Patient was intubated with acute respiratory failure. Recently she developed worsening renal insufficiency, started on hemodialysis. But the for the last few days her overall condition is worsening. She is currently receiving vasopressin, norepinephrine drip. Blood pressure still on the low side, and also tachycardic. FiO2 is 50%. Patient is poorly responding, agonal breathing noted Currently receiving hemodialysis tolerating. Overall prognosis very poor Assessment and recommendation: 61-year-old female with history of lupus disease admitted with a pneumonia, acute respiratory failure, complicated with fluid overload and renal insufficiency. Currently patient is feeling hemodialysis, poor prognosis poor. Continue the supportive care. Will follow the patient CCU Objective - Vital Signs / Intake & Output Vital Signs (Last 4 hours): Vital Signs Pulse Resp BP 01/04/17 14:46 129 H 48 H 95/57 L Intake and Output (Last 8hrs): Intake & Output 01/04/17 01/04/17 01/04/17 06:59 14:59 22:59 Intake Total 685.6 93.2 Output Total 100 Balance 585.6 93.2 Weight 149 lb 0.52 oz Intake: Intake, IV Amount 505.6 63.2 Right Proximal Port 4.8 0.6 Internal Jugular Right Medial Port 50.4 6.3 Internal Jugular Right Distal Port 450.4 56.3 Tube Feeding 180 30 Output: Urine 100 Urethral ([place]) 100 - Medications Active Medications: Active Medications Generic Name Dose Route Start Last Admin Trade Name Freq PRN Reason Stop Dose Admin Emollient Ointment 5 gm 12/27/16 21:16 01/04/17 05:49 Vaseline Oint TOP 5 gm QID PRN Administration Azithromycin 500 mg/ Sodium 250 mls @ 250 mls/hr 12/23/16 10:00 01/04/17 10:21 Chloride IVPB 250 mls/hr DAILY LINN Administration Micafungin Sodium 100 mg/ 100 mls @ 100 mls/hr 01/01/17 16:30 01/03/17 15:48 Sodium Chloride IV 100 mls/hr Q24H LINN Administration Norepinephrine Bitartrate 8 mg 258 mls @ 38.7 mls/hr 01/02/17 23:30 01/04/17 08 :16 / Sodium Chloride IV 27.13 mcg/min .Q6H40M PRN Titration TITRATE PER MD ORDER Protocol 20 MCG/MIN Dexmedetomidine HCl 200 mcg/ 50 mls @ 3.25 mls/hr 01/03/17 09:58 01/03/17 13:00 Sodium Chloride IVPB 0 mcg/kg/hr TITR PRN Titration Agitation Protocol 0.2 MCG/KG/HR Cefepime HCl 100 mls @ 200 mls/hr 01/03/17 10:30 01/04/17 10:21 Maxipime Iv 2 Gm Premix IVPB 01/08/17 10:31 200 mls/hr Q24H LINN Administration Vasopressin 40 units/ Sodium 40 mls @ 0.6 mls/hr 01/03/17 16:15 01/04/17 07:45 Chloride IV 0.04 units/min .Q24H LINN Titration Protocol 0.01 UNITS/MIN Vancomycin/Sodium Chloride 200 mls @ 133.333 mls/hr 01/04/17 13:00 Vancocin IVPB MWF LINN Lorazepam 1 mg 01/01/17 20:56 01/04/17 05:30 Ativan IVP 1 mg Q3H PRN Administration Anxiety Nystatin 1 applic 01/01/17 10:15 01/04/17 10:22 Nystop Topical Powder TOP 1 appl BID LINN Administration Pantoprazole Sodium 40 mg 12/30/16 10:00 01/04/17 10:21 Protonix Inj IVP 40 mg DAILY LINN Administration - Patient Studies Lab Studies: Microbiology Studies 01/02/17 Unknown Ova and Parasite Concentrate Exam - Final Stool Lab Studies 01/04/17 01/04/17 01/04/17 Range/Units 14:55 13:31 12:00 WBC (4.8-10.8) K/uL RBC (3.80-5.20) Mil/uL Hgb (11.0-16.0) g/dL Hct (34.0-47.0) % MCV (81.0-99.0) fL MCH (27.0-31.0) pg MCHC (33.0-37.0) g/dL RDW (11.5-14.5) % Plt Count (130-400) K/uL MPV (7.2-11.7) fL Neut % (Auto) (50.0-75.0) % Lymph % (Auto) (20.0-40.0) % [place] % (Auto) (0.0-10.0) % Eos % (Auto) (0.0-4.0) % Baso % (Auto) (0.0-2.0) % Neut # (1.8-7.0) K/uL Lymph # (1.0-4.3) K/uL [place] # (0.0-0.8) K/uL Eos # (0.0-0.7) K/uL Baso # (0.0-0.2) K/uL Neutrophils % (Manual) (50-75) % Band Neutrophils % (0-2) % Lymphocytes % (Manual) (20-40) % Monocytes % (Manual) (0-10) % Myelocytes % (0-0) % Nucleated RBC % (0-0) % Platelet Estimate (NORMAL) Polychromasia Poikilocytosis (manual Anisocytosis (manual) Macrocytosis (manual) Target Cells Ovalocytes Orin Cells Puncture Site pCO2 (35-45) mm/Hg pO2 (80-100) mm/Hg HCO3 (21-28) mmol/L ABG pH (7.35-7.45) ABG Total CO2 (22-28) mmol/L ABG O2 Saturation (95-98) % ABG Base Excess (-2.0-3.0) mmol/L ABG Hemoglobin (11.7-17.4) g/dL ABG Carboxyhemoglobin (0.5-1.5) % POC ABG HHb (Measured) (0.0-5.0) % ABG Methemoglobin (0.0-3.0) % Billy Test A-a O2 Difference mm/Hg Respiratory Index Hgb O2 Saturation (95.0-98.0) % Mechanical Rate FiO2 % Tidal Volume PEEP Sodium (132-148) mmol/L Potassium (3.6-5.2) mmol/L Chloride (98-107) mmol/L Carbon Dioxide (22-30) mmol/L Anion Gap (10-20) BUN (7-17) mg/dL Creatinine (0.7-1.2) MG/DL Est GFR ( Amer) Est GFR (Non-Af Amer) POC Glucose (mg/dL) 85 108 79 (65-110) mg/dL Random Glucose (65-105) mg/dL Calcium (8.6-10.4) mg/dl Phosphorus (2.5-4.5) mg/dL Magnesium (1.6-2.3) mg/dL Total Bilirubin (0.2-1.3) mg/dL AST (14-36) U/L ALT (9-52) U/L Alkaline Phosphatase (38-126) U/L Total Protein (6.3-8.3) g/dL Albumin (3.5-5.0) g/dL Globulin (2.2-3.9) gm/dL Albumin/Globulin Ratio (1.0-2.1) 01/04/17 01/04/17 01/04/17 Range/Units 10:46 09:29 08:25 WBC (4.8-10.8) K/uL RBC (3.80-5.20) Mil/uL Hgb (11.0-16.0) g/dL Hct (34.0-47.0) % MCV (81.0-99.0) fL MCH (27.0-31.0) pg MCHC (33.0-37.0) g/dL RDW (11.5-14.5) % Plt Count (130-400) K/uL MPV (7.2-11.7) fL Neut % (Auto) (50.0-75.0) % Lymph % (Auto) (20.0-40.0) % [place] % (Auto) (0.0-10.0) % Eos % (Auto) (0.0-4.0) % Baso % (Auto) (0.0-2.0) % Neut # (1.8-7.0) K/uL Lymph # (1.0-4.3) K/uL [place] # (0.0-0.8) K/uL Eos # (0.0-0.7) K/uL Baso # (0.0-0.2) K/uL Neutrophils % (Manual) (50-75) % Band Neutrophils % (0-2) % Lymphocytes % (Manual) (20-40) % Monocytes % (Manual) (0-10) % Myelocytes % (0-0) % Nucleated RBC % (0-0) % Platelet Estimate (NORMAL) Polychromasia Poikilocytosis (manual Anisocytosis (manual) Macrocytosis (manual) Target Cells Ovalocytes Orin Cells Puncture Site pCO2 (35-45) mm/Hg pO2 (80-100) mm/Hg HCO3 (21-28) mmol/L ABG pH (7.35-7.45) ABG Total CO2 (22-28) mmol/L ABG O2 Saturation (95-98) % ABG Base Excess (-2.0-3.0) mmol/L ABG Hemoglobin (11.7-17.4) g/dL ABG Carboxyhemoglobin (0.5-1.5) % POC ABG HHb (Measured) (0.0-5.0) % ABG Methemoglobin (0.0-3.0) % Billy Test A-a O2 Difference mm/Hg Respiratory Index Hgb O2 Saturation (95.0-98.0) % Mechanical Rate FiO2 % Tidal Volume PEEP Sodium (132-148) mmol/L Potassium (3.6-5.2) mmol/L Chloride (98-107) mmol/L Carbon Dioxide (22-30) mmol/L Anion Gap (10-20) BUN (7-17) mg/dL Creatinine (0.7-1.2) MG/DL Est GFR ( Amer) Est GFR (Non-Af Amer) POC Glucose (mg/dL) 88 91 109 (65-110) mg/dL Random Glucose (65-105) mg/dL Calcium (8.6-10.4) mg/dl Phosphorus (2.5-4.5) mg/dL Magnesium (1.6-2.3) mg/dL Total Bilirubin (0.2-1.3) mg/dL AST (14-36) U/L ALT (9-52) U/L Alkaline Phosphatase (38-126) U/L Total Protein (6.3-8.3) g/dL Albumin (3.5-5.0) g/dL Globulin (2.2-3.9) gm/dL Albumin/Globulin Ratio (1.0-2.1) 01/04/17 01/04/17 01/04/17 Range/Units 07:55 06:21 05:11 WBC 18.0 H (4.8-10.8) K/uL RBC 3.04 L (3.80-5.20) Mil/uL Hgb 9.7 L (11.0-16.0) g/dL Hct 29.4 L (34.0-47.0) % MCV 96.8 D (81.0-99.0) fL MCH 31.8 H (27.0-31.0) pg MCHC 32.8 L (33.0-37.0) g/dL RDW 21.6 H (11.5-14.5) % Plt Count 76 L (130-400) K/uL MPV 10.7 (7.2-11.7) fL Neut % (Auto) 86.8 H (50.0-75.0) % Lymph % (Auto) 6.3 L (20.0-40.0) % [place] % (Auto) 5.4 (0.0-10.0) % Eos % (Auto) 1.2 (0.0-4.0) % Baso % (Auto) 0.3 (0.0-2.0) % Neut # 15.7 H (1.8-7.0) K/uL Lymph # 1.1 (1.0-4.3) K/uL [place] # 1.0 H (0.0-0.8) K/uL Eos # 0.2 (0.0-0.7) K/uL Baso # 0.1 (0.0-0.2) K/uL Neutrophils % (Manual) 87 H (50-75) % Band Neutrophils % 4 H (0-2) % Lymphocytes % (Manual) 5 L (20-40) % Monocytes % (Manual) 3 (0-10) % Myelocytes % 1 H (0-0) % Nucleated RBC % 3 H (0-0) % Platelet Estimate Decreased L (NORMAL) Polychromasia Slight Poikilocytosis (manual Slight Anisocytosis (manual) Moderate Macrocytosis (manual) Slight Target Cells Slight Ovalocytes Slight Orin Cells Slight Puncture Site Rr pCO2 41 (35-45) mm/Hg pO2 87 (80-100) mm/Hg HCO3 25.8 (21-28) mmol/L ABG pH 7.41 (7.35-7.45) ABG Total CO2 27.3 (22-28) mmol/L ABG O2 Saturation 98.2 H (95-98) % ABG Base Excess 1.2 (-2.0-3.0) mmol/L ABG Hemoglobin 9.8 L (11.7-17.4) g/dL ABG Carboxyhemoglobin 1.9 H (0.5-1.5) % POC ABG HHb (Measured) 1.7 (0.0-5.0) % ABG Methemoglobin 1.6 (0.0-3.0) % Billy Test Pos A-a O2 Difference 361.0 mm/Hg Respiratory Index 4.1 Hgb O2 Saturation 94.9 L (95.0-98.0) % Mechanical Rate 16 FiO2 70.0 % Tidal Volume 500 PEEP 5 Sodium 131 L (132-148) mmol/L Potassium 3.4 L (3.6-5.2) mmol/L Chloride 93 L (98-107) mmol/L Carbon Dioxide 27 (22-30) mmol/L Anion Gap 14 (10-20) BUN 27 H (7-17) mg/dL Creatinine 2.8 H (0.7-1.2) MG/DL Est GFR ( Amer) 21 Est GFR (Non-Af Amer) 17 POC Glucose (mg/dL) 50 L (65-110) mg/dL Random Glucose 47 L (65-105) mg/dL Calcium 6.9 L (8.6-10.4) mg/dl Phosphorus 2.5 (2.5-4.5) mg/dL Magnesium 1.5 L (1.6-2.3) mg/dL Total Bilirubin 5.3 H (0.2-1.3) mg/dL AST 82 H (14-36) U/L ALT 73 H (9-52) U/L Alkaline Phosphatase 140 H D (38-126) U/L Total Protein 4.8 L (6.3-8.3) g/dL Albumin 1.9 L (3.5-5.0) g/dL Globulin 2.8 (2.2-3.9) gm/dL Albumin/Globulin Ratio 0.7 L (1.0-2.1) Laboratory Results - last 24 hr 01/04/17 01/04/17 01/04/17 05:11 06:21 07:55 WBC 18.0 H RBC 3.04 L Hgb 9.7 L Hct 29.4 L MCV 96.8 D MCH 31.8 H MCHC 32.8 L RDW 21.6 H Plt Count 76 L MPV 10.7 Neut % (Auto) 86.8 H Lymph % (Auto) 6.3 L [place] % (Auto) 5.4 Eos % (Auto) 1.2 Baso % (Auto) 0.3 Neut # 15.7 H Lymph # 1.1 [place] # 1.0 H Eos # 0.2 Baso # 0.1 Neutrophils % (Manual) 87 H Band Neutrophils % 4 H Lymphocytes % (Manual) 5 L Monocytes % (Manual) 3 Myelocytes % 1 H Nucleated RBC % 3 H Platelet Estimate Decreased L Polychromasia Slight Poikilocytosis (manual Slight Anisocytosis (manual) Moderate Macrocytosis (manual) Slight Target Cells Slight Ovalocytes Slight Orin Cells Slight Puncture Site Rr pCO2 41 pO2 87 HCO3 25.8 ABG pH 7.41 ABG Total CO2 27.3 ABG O2 Saturation 98.2 H ABG Base Excess 1.2 ABG Hemoglobin 9.8 L ABG Carboxyhemoglobin 1.9 H POC ABG HHb (Measured) 1.7 ABG Methemoglobin 1.6 Billy Test Pos A-a O2 Difference 361.0 Respiratory Index 4.1 Hgb O2 Saturation 94.9 L Mechanical Rate 16 FiO2 70.0 Tidal Volume 500 PEEP 5 Sodium 131 L Potassium 3.4 L Chloride 93 L Carbon Dioxide 27 Anion Gap 14 BUN 27 H Creatinine 2.8 H Est GFR ( Amer) 21 Est GFR (Non-Af Amer) 17 POC Glucose (mg/dL) 50 L Random Glucose 47 L Calcium 6.9 L Phosphorus 2.5 Magnesium 1.5 L Total Bilirubin 5.3 H AST 82 H ALT 73 H Alkaline Phosphatase 140 H D Total Protein 4.8 L Albumin 1.9 L Globulin 2.8 Albumin/Globulin Ratio 0.7 L 01/04/17 01/04/17 01/04/17 08:25 09:29 10:46 WBC RBC Hgb Hct MCV MCH MCHC RDW Plt Count MPV Neut % (Auto) Lymph % (Auto) [place] % (Auto) Eos % (Auto) Baso % (Auto) Neut # Lymph # [place] # Eos # Baso # Neutrophils % (Manual) Band Neutrophils % Lymphocytes % (Manual) Monocytes % (Manual) Myelocytes % Nucleated RBC % Platelet Estimate Polychromasia Poikilocytosis (manual Anisocytosis (manual) Macrocytosis (manual) Target Cells Ovalocytes Orin Cells Puncture Site pCO2 pO2 HCO3 ABG pH ABG Total CO2 ABG O2 Saturation ABG Base Excess ABG Hemoglobin ABG Carboxyhemoglobin POC ABG HHb (Measured) ABG Methemoglobin Billy Test A-a O2 Difference Respiratory Index Hgb O2 Saturation Mechanical Rate FiO2 Tidal Volume PEEP Sodium Potassium Chloride Carbon Dioxide Anion Gap BUN Creatinine Est GFR ( Amer) Est GFR (Non-Af Amer) POC Glucose (mg/dL) 109 91 88 Random Glucose Calcium Phosphorus Magnesium Total Bilirubin AST ALT Alkaline Phosphatase Total Protein Albumin Globulin Albumin/Globulin Ratio 01/04/17 01/04/17 01/04/17 12:00 13:31 14:55 WBC RBC Hgb Hct MCV MCH MCHC RDW Plt Count MPV Neut % (Auto) Lymph % (Auto) [place] % (Auto) Eos % (Auto) Baso % (Auto) Neut # Lymph # [place] # Eos # Baso # Neutrophils % (Manual) Band Neutrophils % Lymphocytes % (Manual) Monocytes % (Manual) Myelocytes % Nucleated RBC % Platelet Estimate Polychromasia Poikilocytosis (manual Anisocytosis (manual) Macrocytosis (manual) Target Cells Ovalocytes Orin Cells Puncture Site pCO2 pO2 HCO3 ABG pH ABG Total CO2 ABG O2 Saturation ABG Base Excess ABG Hemoglobin ABG Carboxyhemoglobin POC ABG HHb (Measured) ABG Methemoglobin Billy Test A-a O2 Difference Respiratory Index Hgb O2 Saturation Mechanical Rate FiO2 Tidal Volume PEEP Sodium Potassium Chloride Carbon Dioxide Anion Gap BUN Creatinine Est GFR ( Amer) Est GFR (Non-Af Amer) POC Glucose (mg/dL) 79 108 85 Random Glucose Calcium Phosphorus Magnesium Total Bilirubin AST ALT Alkaline Phosphatase Total Protein Albumin Globulin Albumin/Globulin Ratio
[2017-01-04] MEDS ORDERED: Dextrose 50% SYRINGE Inj (50 ml) IV STA (07:54)
[2017-01-04] MEDS ORDERED: Potassium Chloride 40 MEQ in Dextrose 5%/0.9% NS 1,000 ML IV SCH (08:00)
--- NOTE | 2017-01-04 08:30 | CP.PCM.PN ---
Subjective - Date & Time of Evaluation Date of Evaluation: 01/04/17 Time of Evaluation: 07:45 - Subjective Subjective: Cardiology progress note for Dr Montelongo. Patient is still intubated, minimally responsive, off of sedation. On levophed , milrinone and vesopressin. Objective - Vital Signs/Intake and Output Vital Signs (last 24 hours): Temp Pulse Resp BP Pulse Ox 101.2 F H 141 H 26 H 116/63 98 01/03/17 16:00 01/04/17 07:10 01/04/17 07:10 01/04/17 07:10 01/04/17 07:10 Intake and Output: 01/04/17 01/04/17 06:59 18:59 Intake Total 1528.4 93.2 Output Total 100 Balance 1428.4 93.2 - Medications Medications: Current Medications Emollient Ointment (Vaseline Oint) 5 gm TOP QID PRN Last Admin: 01/04/17 05:49 Dose: 5 gm Azithromycin 500 mg/ Sodium (Chloride) 250 mls @ 250 mls/hr IVPB DAILY [facility] Last Admin: 01/03/17 12:49 Dose: 250 mls/hr Milrinone Lactate/Dextrose 20 (mg/ Dextrose) 100 mls @ 6.3 mls/hr IV .[id number] [facility] PRN Reason: 0.375 MCG/KG/MIN Last Admin: 01/04/17 04:15 Dose: 6.3 mls/hr Micafungin Sodium 100 mg/ (Sodium Chloride) 100 mls @ 100 mls/hr IV Q24H [facility] Last Admin: 01/03/17 15:48 Dose: 100 mls/hr Norepinephrine Bitartrate 8 mg (/ Sodium Chloride) 258 mls @ 38.7 mls/hr IV .Q6H40M PRN; Protocol; 20 MCG/MIN PRN Reason: TITRATE PER MD ORDER Last Titration: 01/04/17 08:16 Dose: 27.13 mcg/min Dexmedetomidine HCl 200 mcg/ (Sodium Chloride) 50 mls @ 3.25 mls/hr IVPB TITR PRN; Protocol; 0.2 MCG/KG/HR PRN Reason: Agitation Last Titration: 01/03/17 13:00 Dose: 0 mcg/kg/hr Cefepime HCl (Maxipime Iv 2 Gm Premix) 100 mls @ 200 mls/hr IVPB Q24H [facility] Stop: 01/08/17 10:31 Last Admin: 01/03/17 11:24 Dose: Not Given Vasopressin 40 units/ Sodium (Chloride) 40 mls @ 0.6 mls/hr IV .Q24H [facility]; 0.01 UNITS/MIN PRN Reason: Protocol Last Titration: 01/04/17 07:45 Dose: 0.04 units/min Potassium Chloride 40 meq/ (Dextrose/Sodium Chloride) 1,020 mls @ 100 mls/hr IV .[id number] [facility] Last Admin: 01/04/17 08:14 Dose: 100 mls/hr Lorazepam (Ativan) 1 mg IVP Q3H PRN PRN Reason: Anxiety Last Admin: 01/04/17 05:30 Dose: 1 mg Nystatin (Nystop Topical Powder) 1 applic TOP BID [facility] Last Admin: 01/03/17 18:40 Dose: 1 appl Pantoprazole Sodium (Protonix Inj) 40 mg IVP DAILY [facility] Last Admin: 01/03/17 11:21 Dose: 40 mg - Labs Labs: 01/04/17 06:21 01/04/17 06:21 PT 17.7 SECONDS (9.7-12.2) H 12/30/16 10:43 INR 1.6 12/30/16 10:43 APTT 34 SECONDS (21-34) D 12/25/16 06:11 - Constitutional Appears: No Acute Distress, Older Than Stated Age, Cachectic, Chronically Ill - Head Exam Head Exam: ATRAUMATIC, NORMAL INSPECTION, NORMOCEPHALIC - Eye Exam Eye Exam: Normal appearance. absent: Scleral icterus - ENT Exam ENT Exam: Mucous Membranes Moist Additional comments: Intubated. - Neck Exam Neck Exam: Normal Inspection - Respiratory Exam Respiratory Exam: Decreased Breath Sounds, NORMAL BREATHING PATTERN. absent: Rales, Rhonchi, Wheezes, Respiratory Distress, Stridor - Cardiovascular Exam Cardiovascular Exam: Tachycardia, REGULAR RHYTHM, RRR, +S1, +S2 - GI/Abdominal Exam GI & Abdominal Exam: Soft, Normal Bowel Sounds. absent: Distended, Tenderness - Extremities Exam Extremities Exam: absent: Pedal Edema - Neurological Exam Additional comments: minimally responsive off of sedation. - Skin Skin Exam: Diaphoretic, Warm Assessment and Plan - Assessment and Plan (Free Text) Assessment: 61 y/o with PMH of Lupus, dilated cardiomyopathy s/p ICD, CVA with left sided residue, htn admitted with: 1) Hypoxemic respiratory failure 2nd to HAP/CHF exacerbation LVEF of 20% with mod-severe pulm htn on echo- s/p ICD interrogation 2) Septic shock- 3) Ecoli UTI 4) Transaminitis 5) VERONICA on HD 6) Thrombocytopenia 7) macrocytic Anemia 8) Electrolytes imbalance. Plan: - ICD interrogated, Normal except the ICD has low battery life and will need to be replaced once patient is medically stable. - Patient is on pressors- levophed, vasopressin and milrinone. - On cefepime, zithromax, and micafungin for broadspectrum coverage. - On protonix for gi prophylaxis. - SCD for dvt prophylaxis. - Gi and renal following, Started on HD. - In ICU. Patient seen, examined, case discussed with Dr Montelongo.
[2017-01-04 08:53] LABS: MYELOCYTE 1 % (0-0); NEUTROPHIL 87 % (50-75); NUCLEATED RED BLOOD CELL 3 % (0-0); TOTAL CELLS COUNTED 100
--- NOTE | 2017-01-04 09:09 | CP.PCM.PN ---
Subjective - Date & Time of Evaluation Date of Evaluation: 01/03/17 Time of Evaluation: 18:20 - Subjective Subjective: Patient on increasing vasopressor support, s/p HD yesterday; Objective - Vital Signs/Intake and Output Vital Signs (last 24 hours): Temp Pulse Resp BP Pulse Ox 101.2 F H 141 H 26 H 116/63 98 01/03/17 16:00 01/04/17 07:10 01/04/17 07:10 01/04/17 07:10 01/04/17 07:10 Intake and Output: 01/04/17 01/04/17 06:59 18:59 Intake Total 1528.4 93.2 Output Total 100 Balance 1428.4 93.2 - Medications Medications: Current Medications Emollient Ointment (Vaseline Oint) 5 gm TOP QID PRN Last Admin: 01/04/17 05:49 Dose: 5 gm Azithromycin 500 mg/ Sodium (Chloride) 250 mls @ 250 mls/hr IVPB DAILY [facility] Last Admin: 01/03/17 12:49 Dose: 250 mls/hr Milrinone Lactate/Dextrose 20 (mg/ Dextrose) 100 mls @ 6.3 mls/hr IV .[id number] [facility] PRN Reason: 0.375 MCG/KG/MIN Last Admin: 01/04/17 04:15 Dose: 6.3 mls/hr Micafungin Sodium 100 mg/ (Sodium Chloride) 100 mls @ 100 mls/hr IV Q24H [facility] Last Admin: 01/03/17 15:48 Dose: 100 mls/hr Norepinephrine Bitartrate 8 mg (/ Sodium Chloride) 258 mls @ 38.7 mls/hr IV .Q6H40M PRN; Protocol; 20 MCG/MIN PRN Reason: TITRATE PER MD ORDER Last Titration: 01/04/17 08:16 Dose: 27.13 mcg/min Dexmedetomidine HCl 200 mcg/ (Sodium Chloride) 50 mls @ 3.25 mls/hr IVPB TITR PRN; Protocol; 0.2 MCG/KG/HR PRN Reason: Agitation Last Titration: 01/03/17 13:00 Dose: 0 mcg/kg/hr Cefepime HCl (Maxipime Iv 2 Gm Premix) 100 mls @ 200 mls/hr IVPB Q24H [facility] Stop: 01/08/17 10:31 Last Admin: 01/03/17 11:24 Dose: Not Given Vasopressin 40 units/ Sodium (Chloride) 40 mls @ 0.6 mls/hr IV .Q24H [facility]; 0.01 UNITS/MIN PRN Reason: Protocol Last Titration: 01/04/17 07:45 Dose: 0.04 units/min Potassium Chloride 40 meq/ (Dextrose/Sodium Chloride) 1,020 mls @ 100 mls/hr IV .[id number] [facility] Last Admin: 01/04/17 08:14 Dose: 100 mls/hr Lorazepam (Ativan) 1 mg IVP Q3H PRN PRN Reason: Anxiety Last Admin: 01/04/17 05:30 Dose: 1 mg Nystatin (Nystop Topical Powder) 1 applic TOP BID [facility] Last Admin: 01/03/17 18:40 Dose: 1 appl Pantoprazole Sodium (Protonix Inj) 40 mg IVP DAILY [facility] Last Admin: 01/03/17 11:21 Dose: 40 mg - Labs Labs: 01/04/17 06:21 01/04/17 06:21 PT 17.7 SECONDS (9.7-12.2) H 12/30/16 10:43 INR 1.6 12/30/16 10:43 APTT 34 SECONDS (21-34) D 12/25/16 06:11 - Constitutional Appears: No Acute Distress - Head Exam Head Exam: NORMAL INSPECTION - Eye Exam Eye Exam: Scleral icterus - ENT Exam ENT Exam: Mucous Membranes Moist - Respiratory Exam Respiratory Exam: Clear to Ausculation Bilateral Additional comments: Overbreathing vent; - Cardiovascular Exam Cardiovascular Exam: REGULAR RHYTHM, +S1, +S2 - GI/Abdominal Exam GI & Abdominal Exam: Soft. absent: Distended - Extremities Exam Additional comments: Markedly edematous extremities; - Neurological Exam Additional comments: Minimally responding to noxious stimuli; - Skin Skin Exam: Cyanosis, Warm Additional comments: cyanotic ext; Assessment and Plan (1) CHF (congestive heart failure) Assessment & Plan: Biventricular failure; cardiogenic shock; on high dose milrinone for inotropic support; Status: Acute (2) Hyperbilirubinemia Assessment & Plan: Persistent; improvement in numbers of unclear significance in light of deteriorating clinical status; Status: Acute (3) Pneumonia Assessment & Plan: RUL PNA inititially, now bilateral infiltrates; on cefepime, zithromax and micafungin, continue per ID; Status: Acute (4) Septic shock Assessment & Plan: On 2 vasopressors (in addition to inotrope); no recent positive cultures; high procalcitonin level; continue abx per ID; Status: Acute
[2017-01-04] MEDS: Azithromycin 500 MG in Sodium Chloride 0.9% 250 ML IVPB SCH (10:21)
[2017-01-04] MEDS: Cefepime IV 2 gm in Dextrose 100 ML IVPB SCH (10:21)
--- NOTE | 2017-01-04 11:04 | RAD ---
PROCEDURE: CHEST RADIOGRAPH, 1 VIEW HISTORY: vented COMPARISON: Comparison chest dated 01/04/2017. FINDINGS: LUNGS: In situ ETT, tip of which lies approximately 4.5 cm above isauro. Right IJ central venous line unchanged. In situ NGT, tip of which is has not been included on this study though distal aspect does lie below EG junction. Single lead pacemaker/defibrillator also on altered. Diffuse bilateral infiltrates unchanged. Questionable small left effusion PLEURA: No pneumothorax. CARDIOVASCULAR: Normal. OSSEOUS STRUCTURES: No significant abnormalities. VISUALIZED UPPER ABDOMEN: Normal. OTHER FINDINGS: None. IMPRESSION: Support lines and tubes as above. Diffuse bilateral infiltrates of with questionable small left effusion
--- NOTE | 2017-01-04 11:07 | CP.PCM.PN ---
Subjective - Date & Time of Evaluation Date of Evaluation: 01/04/17 Time of Evaluation: 11:04 - Subjective Subjective: s/p dialysis 01/02 On high dose pressors, sedated, on vent Still oliguric Still tachypneic while on vent Objective - Vital Signs/Intake and Output Vital Signs (last 24 hours): Temp Pulse Resp BP Pulse Ox 101.2 F H 141 H 26 H 116/63 98 01/03/17 16:00 01/04/17 07:10 01/04/17 07:10 01/04/17 07:10 01/04/17 07:10 Intake and Output: 01/04/17 01/04/17 06:59 18:59 Intake Total 1528.4 93.2 Output Total 100 Balance 1428.4 93.2 - Medications Medications: Current Medications Emollient Ointment (Vaseline Oint) 5 gm TOP QID PRN Last Admin: 01/04/17 05:49 Dose: 5 gm Azithromycin 500 mg/ Sodium (Chloride) 250 mls @ 250 mls/hr IVPB DAILY [facility] Last Admin: 01/04/17 10:21 Dose: 250 mls/hr Micafungin Sodium 100 mg/ (Sodium Chloride) 100 mls @ 100 mls/hr IV Q24H [facility] Last Admin: 01/03/17 15:48 Dose: 100 mls/hr Norepinephrine Bitartrate 8 mg (/ Sodium Chloride) 258 mls @ 38.7 mls/hr IV .Q6H40M PRN; Protocol; 20 MCG/MIN PRN Reason: TITRATE PER MD ORDER Last Titration: 01/04/17 08:16 Dose: 27.13 mcg/min Dexmedetomidine HCl 200 mcg/ (Sodium Chloride) 50 mls @ 3.25 mls/hr IVPB TITR PRN; Protocol; 0.2 MCG/KG/HR PRN Reason: Agitation Last Titration: 01/03/17 13:00 Dose: 0 mcg/kg/hr Cefepime HCl (Maxipime Iv 2 Gm Premix) 100 mls @ 200 mls/hr IVPB Q24H [facility] Stop: 01/08/17 10:31 Last Admin: 01/04/17 10:21 Dose: 200 mls/hr Vasopressin 40 units/ Sodium (Chloride) 40 mls @ 0.6 mls/hr IV .Q24H [facility]; 0.01 UNITS/MIN PRN Reason: Protocol Last Titration: 01/04/17 07:45 Dose: 0.04 units/min Lorazepam (Ativan) 1 mg IVP Q3H PRN PRN Reason: Anxiety Last Admin: 01/04/17 05:30 Dose: 1 mg Nystatin (Nystop Topical Powder) 1 applic TOP BID [facility] Last Admin: 01/04/17 10:22 Dose: 1 appl Pantoprazole Sodium (Protonix Inj) 40 mg IVP DAILY [facility] Last Admin: 01/04/17 10:21 Dose: 40 mg - Labs Labs: 01/04/17 06:21 01/04/17 06:21 PT 17.7 SECONDS (9.7-12.2) H 12/30/16 10:43 INR 1.6 12/30/16 10:43 APTT 34 SECONDS (21-34) D 12/25/16 06:11 - Constitutional Appears: Toxic, In Acute Distress - Head Exam Head Exam: ATRAUMATIC, NORMAL INSPECTION - Neck Exam Neck Exam: Normal Inspection. absent: Tenderness - Respiratory Exam Respiratory Exam: Rhonchi, Respiratory Distress - Cardiovascular Exam Cardiovascular Exam: Tachycardia, +S1 - GI/Abdominal Exam GI & Abdominal Exam: Soft. absent: Tenderness - Extremities Exam Extremities Exam: Normal Inspection. absent: Tenderness - Neurological Exam Neurological Exam: Altered - Skin Skin Exam: Dry, Warm Assessment and Plan (1) CHF (congestive heart failure) Status: Acute (2) Lupus (systemic lupus erythematosus) Status: Acute (3) Pneumonia Status: Acute (4) Sepsis Status: Acute (5) Oliguria Status: Acute (6) VERONICA (acute kidney injury) Status: Acute - Assessment and Plan (Free Text) Plan: Will try dialysis again for fluid removal Respiratory status poor
--- NOTE | 2017-01-04 12:37 | CP.PCM.PN ---
Subjective - Date & Time of Evaluation Date of Evaluation: 01/04/17 Time of Evaluation: 08:00 - Subjective Subjective: sever bilat pneumonia cultures neg thus far on zmax/ cefepime and micafungin Vanco added Objective - Vital Signs/Intake and Output Vital Signs (last 24 hours): Temp Pulse Resp BP Pulse Ox 101.2 F H 141 H 26 H 116/63 98 01/03/17 16:00 01/04/17 07:10 01/04/17 07:10 01/04/17 07:10 01/04/17 07:10 Intake and Output: 01/04/17 01/04/17 06:59 18:59 Intake Total 1528.4 93.2 Output Total 100 Balance 1428.4 93.2 - Medications Medications: Current Medications Emollient Ointment (Vaseline Oint) 5 gm TOP QID PRN Last Admin: 01/04/17 05:49 Dose: 5 gm Azithromycin 500 mg/ Sodium (Chloride) 250 mls @ 250 mls/hr IVPB DAILY [facility] Last Admin: 01/04/17 10:21 Dose: 250 mls/hr Micafungin Sodium 100 mg/ (Sodium Chloride) 100 mls @ 100 mls/hr IV Q24H [facility] Last Admin: 01/03/17 15:48 Dose: 100 mls/hr Norepinephrine Bitartrate 8 mg (/ Sodium Chloride) 258 mls @ 38.7 mls/hr IV .Q6H40M PRN; Protocol; 20 MCG/MIN PRN Reason: TITRATE PER MD ORDER Last Titration: 01/04/17 08:16 Dose: 27.13 mcg/min Dexmedetomidine HCl 200 mcg/ (Sodium Chloride) 50 mls @ 3.25 mls/hr IVPB TITR PRN; Protocol; 0.2 MCG/KG/HR PRN Reason: Agitation Last Titration: 01/03/17 13:00 Dose: 0 mcg/kg/hr Cefepime HCl (Maxipime Iv 2 Gm Premix) 100 mls @ 200 mls/hr IVPB Q24H [facility] Stop: 01/08/17 10:31 Last Admin: 01/04/17 10:21 Dose: 200 mls/hr Vasopressin 40 units/ Sodium (Chloride) 40 mls @ 0.6 mls/hr IV .Q24H [facility]; 0.01 UNITS/MIN PRN Reason: Protocol Last Titration: 01/04/17 07:45 Dose: 0.04 units/min Lorazepam (Ativan) 1 mg IVP Q3H PRN PRN Reason: Anxiety Last Admin: 01/04/17 05:30 Dose: 1 mg Nystatin (Nystop Topical Powder) 1 applic TOP BID [facility] Last Admin: 01/04/17 10:22 Dose: 1 appl Pantoprazole Sodium (Protonix Inj) 40 mg IVP DAILY [facility] Last Admin: 01/04/17 10:21 Dose: 40 mg - Labs Labs: 01/04/17 06:21 01/04/17 06:21 PT 17.7 SECONDS (9.7-12.2) H 12/30/16 10:43 INR 1.6 12/30/16 10:43 APTT 34 SECONDS (21-34) D 12/25/16 06:11 - Constitutional Appears: Cachectic, Chronically Ill - Eye Exam Eye Exam: PERRL - ENT Exam ENT Exam: Mucous Membranes Dry - Neck Exam Neck Exam: absent: Lymphadenopathy - Respiratory Exam Respiratory Exam: Rhonchi - Cardiovascular Exam Cardiovascular Exam: REGULAR RHYTHM Assessment and Plan (1) VERONICA (acute kidney injury) Status: Acute (2) Abnormal thyroid blood test Status: Acute (3) CHF (congestive heart failure) Status: Acute (4) Dyspnea Status: Acute (5) HTN (hypertension) Status: Acute (6) Lupus (systemic lupus erythematosus) Status: Acute (7) Pneumonia due to aerobic bacteria Status: Acute (8) Septic shock Status: Acute (9) Respiratory failure Status: Acute (10) Respiratory failure of more than 28 days duration Status: Acute (11) Respiratory failure requiring intubation Status: Acute
--- NOTE | 2017-01-04 14:01 | CP.PCM.CON ---
History of Present Illness - History of Present Illness History of Present Illness: Requested by auto damage trainee to see t his patient for palliative care consult. HPI This is a 61 yo AA female who was initially admitted on 12/22 with generalized weakness and aspiration pnemonia. Over the past 13 days patient has had drop in HGB from 11 to 7.5 requiring 2 unites PRBC, worsening kidney function requiring HD which began on 01/01, hypotension which is now being managed on vasopressin and norepinephrine, and platelets which were normal at 165 on 12/24 and are now 76. CXR of 01/04 shows diffuse bilateal infiltrates and WBC is up to 18 today from 13 of yesterday. Patient is also hypoalbuminemic with alb of 1.9 with tube feedings. Patient also has elevated liver enzymes with T bili of 5.3 and elevated AST ALT and AP. Patient has 3 children, a son who is incarcerated, a daughter who lives in [place], and a son who lives in [place] who has been signing consents. Patient also has a significant other who she lives with for the past 18 years. We are called to assist with goals of care. Review of Systems - Review of Systems Systems not reviewed;Unavailable: Unstable Vital Signs, Altered Mental Status, Intubated All systems: reviewed and no additional remarkable complaints except Review of Systems: patient is comatose and in no signs of acute distress - Respiratory Additional comments: intubated Past Patient History - Past Medical History & Family History Past Medical History?: Yes - Past Social History Smoking Status: Never Smoked Alcohol: None Drugs: Denies - CARDIAC Hx Pacemaker: Yes - NEUROLOGICAL HX Cerebrovascular Accident: Yes (RT side deficit) - MUSCULOSKELETAL/RHEUMATOLOGICAL Hx Falls: No - PSYCHIATRIC Hx Substance Use: No Meds Allergies/Adverse Reactions: Allergies Allergy/AdvReac Type Severity Reaction Status Date / Time No Known Allergies Allergy Verified 12/22/16 13:20 - Medications Medications: Current Medications Emollient Ointment (Vaseline Oint) 5 gm TOP QID PRN Last Admin: 01/04/17 05:49 Dose: 5 gm Azithromycin 500 mg/ Sodium (Chloride) 250 mls @ 250 mls/hr IVPB DAILY [facility] Last Admin: 01/04/17 10:21 Dose: 250 mls/hr Micafungin Sodium 100 mg/ (Sodium Chloride) 100 mls @ 100 mls/hr IV Q24H [facility] Last Admin: 01/03/17 15:48 Dose: 100 mls/hr Norepinephrine Bitartrate 8 mg (/ Sodium Chloride) 258 mls @ 38.7 mls/hr IV .Q6H40M PRN; Protocol; 20 MCG/MIN PRN Reason: TITRATE PER MD ORDER Last Titration: 01/04/17 08:16 Dose: 27.13 mcg/min Dexmedetomidine HCl 200 mcg/ (Sodium Chloride) 50 mls @ 3.25 mls/hr IVPB TITR PRN; Protocol; 0.2 MCG/KG/HR PRN Reason: Agitation Last Titration: 01/03/17 13:00 Dose: 0 mcg/kg/hr Cefepime HCl (Maxipime Iv 2 Gm Premix) 100 mls @ 200 mls/hr IVPB Q24H [facility] Stop: 01/08/17 10:31 Last Admin: 01/04/17 10:21 Dose: 200 mls/hr Vasopressin 40 units/ Sodium (Chloride) 40 mls @ 0.6 mls/hr IV .Q24H [facility]; 0.01 UNITS/MIN PRN Reason: Protocol Last Titration: 01/04/17 07:45 Dose: 0.04 units/min Vancomycin/Sodium Chloride (Vancocin) 200 mls @ 133.333 mls/hr IVPB MWF [facility] Lorazepam (Ativan) 1 mg IVP Q3H PRN PRN Reason: Anxiety Last Admin: 01/04/17 05:30 Dose: 1 mg Nystatin (Nystop Topical Powder) 1 applic TOP BID [facility] Last Admin: 01/04/17 10:22 Dose: 1 appl Pantoprazole Sodium (Protonix Inj) 40 mg IVP DAILY [facility] Last Admin: 01/04/17 10:21 Dose: 40 mg Physical Exam - Constitutional Appears: Chronically Ill - Head Exam Head Exam: ATRAUMATIC, NORMAL INSPECTION, NORMOCEPHALIC - Eye Exam Eye Exam: Normal appearance - ENT Exam ENT Exam: Mucous Membranes Moist - Neck Exam Neck exam: Positive for: Normal Inspection - Respiratory Exam Respiratory Exam: Rhonchi Additional comments: ETT to vent with settings as ordered - Cardiovascular Exam Cardiovascular Exam: Tachycardia, REGULAR RHYTHM, +S1, +S2 Additional comments: sinus tach on monitor in 120s - GI/Abdominal Exam GI & Abdominal Exam: Distended, Hypoactive Bowel Sounds, Soft Additional comments: OGT feedings infusing - Rectal Exam Rectal Exam: Deferred - Exam Additional comments: noble with 100 cc of wes urine with sediment in past 7 hours - Extremities Exam Additional comments: 4+ pitting edema bilateral lower extremities - Back Exam Back exam: NORMAL INSPECTION - Neurological Exam Neurological exam: Altered Additional comments: not responding to verbal or tactile stimuli - Skin Skin Exam: Dry, Warm Results - Vital Signs Recent Vital Signs: Last Vital Signs Temp 101.2 F H 01/03/17 16:00 Pulse 141 H 01/04/17 07:10 Resp 26 H 01/04/17 07:10 BP 116/63 01/04/17 07:10 Pulse Ox 98 01/04/17 07:10 - Labs Result Diagrams: 01/04/17 06:21 01/04/17 06:21 Labs: Laboratory Results - last 24 hr 01/04/17 01/04/17 01/04/17 05:11 06:21 07:55 WBC 18.0 H RBC 3.04 L Hgb 9.7 L Hct 29.4 L MCV 96.8 D MCH 31.8 H MCHC 32.8 L RDW 21.6 H Plt Count 76 L MPV 10.7 Neut % (Auto) 86.8 H Lymph % (Auto) 6.3 L [place] % (Auto) 5.4 Eos % (Auto) 1.2 Baso % (Auto) 0.3 Neut # 15.7 H Lymph # 1.1 [place] # 1.0 H Eos # 0.2 Baso # 0.1 Neutrophils % (Manual) 87 H Band Neutrophils % 4 H Lymphocytes % (Manual) 5 L Monocytes % (Manual) 3 Myelocytes % 1 H Nucleated RBC % 3 H Platelet Estimate Decreased L Polychromasia Slight Poikilocytosis (manual Slight Anisocytosis (manual) Moderate Macrocytosis (manual) Slight Target Cells Slight Ovalocytes Slight Stanley Cells Slight Puncture Site Rr pCO2 41 pO2 87 HCO3 25.8 ABG pH 7.41 ABG Total CO2 27.3 ABG O2 Saturation 98.2 H ABG Base Excess 1.2 ABG Hemoglobin 9.8 L ABG Carboxyhemoglobin 1.9 H POC ABG HHb (Measured) 1.7 ABG Methemoglobin 1.6 Billy Test Pos A-a O2 Difference 361.0 Respiratory Index 4.1 Hgb O2 Saturation 94.9 L Mechanical Rate 16 FiO2 70.0 Tidal Volume 500 PEEP 5 Sodium 131 L Potassium 3.4 L Chloride 93 L Carbon Dioxide 27 Anion Gap 14 BUN 27 H Creatinine 2.8 H Est GFR ( Amer) 21 Est GFR (Non-Af Amer) 17 POC Glucose (mg/dL) 50 L Random Glucose 47 L Calcium 6.9 L Phosphorus 2.5 Magnesium 1.5 L Total Bilirubin 5.3 H AST 82 H ALT 73 H Alkaline Phosphatase 140 H D Total Protein 4.8 L Albumin 1.9 L Globulin 2.8 Albumin/Globulin Ratio 0.7 L 01/04/17 01/04/17 01/04/17 08:25 09:29 10:46 WBC RBC Hgb Hct MCV MCH MCHC RDW Plt Count MPV Neut % (Auto) Lymph % (Auto) [place] % (Auto) Eos % (Auto) Baso % (Auto) Neut # Lymph # [place] # Eos # Baso # Neutrophils % (Manual) Band Neutrophils % Lymphocytes % (Manual) Monocytes % (Manual) Myelocytes % Nucleated RBC % Platelet Estimate Polychromasia Poikilocytosis (manual Anisocytosis (manual) Macrocytosis (manual) Target Cells Ovalocytes Orin Cells Puncture Site pCO2 pO2 HCO3 ABG pH ABG Total CO2 ABG O2 Saturation ABG Base Excess ABG Hemoglobin ABG Carboxyhemoglobin POC ABG HHb (Measured) ABG Methemoglobin Billy Test A-a O2 Difference Respiratory Index Hgb O2 Saturation Mechanical Rate FiO2 Tidal Volume PEEP Sodium Potassium Chloride Carbon Dioxide Anion Gap BUN Creatinine Est GFR ( Amer) Est GFR (Non-Af Amer) POC Glucose (mg/dL) 109 91 88 Random Glucose Calcium Phosphorus Magnesium Total Bilirubin AST ALT Alkaline Phosphatase Total Protein Albumin Globulin Albumin/Globulin Ratio 01/04/17 01/04/17 12:00 13:31 WBC RBC Hgb Hct MCV MCH MCHC RDW Plt Count MPV Neut % (Auto) Lymph % (Auto) [place] % (Auto) Eos % (Auto) Baso % (Auto) Neut # Lymph # [place] # Eos # Baso # Neutrophils % (Manual) Band Neutrophils % Lymphocytes % (Manual) Monocytes % (Manual) Myelocytes % Nucleated RBC % Platelet Estimate Polychromasia Poikilocytosis (manual Anisocytosis (manual) Macrocytosis (manual) Target Cells Ovalocytes Stanley Cells Puncture Site pCO2 pO2 HCO3 ABG pH ABG Total CO2 ABG O2 Saturation ABG Base Excess ABG Hemoglobin ABG Carboxyhemoglobin POC ABG HHb (Measured) ABG Methemoglobin Billy Test A-a O2 Difference Respiratory Index Hgb O2 Saturation Mechanical Rate FiO2 Tidal Volume PEEP Sodium Potassium Chloride Carbon Dioxide Anion Gap BUN Creatinine Est GFR ( Amer) Est GFR (Non-Af Amer) POC Glucose (mg/dL) 79 108 Random Glucose Calcium Phosphorus Magnesium Total Bilirubin AST ALT Alkaline Phosphatase Total Protein Albumin Globulin Albumin/Globulin Ratio Assessment & Plan (1) CHF (congestive heart failure) Assessment and Plan: Patient has multiple medical conditions, call placed to son, message left, significant other at bedside, he states they never discussed her wishes if she should be in this condition. Patient is acutely ill and getting worse with multiple system failures. Need to discuss code status with son. I left my cell phone number to discuss his goals of care for her. According the the significant other patent had been worsening at home the month prior to hospitalization, more SOB, requring more assistance getting to the [place], and increasing anxiety. Patient was receiving injections every 3 months for her lupus but he doesnt know the name, he will bring the medicine the next time her comes. No uncontrolled symptoms at this time. thank you so much for the couresy of this consult. Status: Acute
--- NOTE | 2017-01-04 14:12 | CP.PCM.PN ---
<Ellen Iqbal - Last Filed: 01/04/17 14:09> Subjective - Date & Time of Evaluation Date of Evaluation: 01/04/17 Time of Evaluation: 14:09 - Subjective Subjective: Gastroenterology Fellow/PGY4 Progress Note Patient intubated on vasopressor support. Nursing denies acute events overnight.Unable to complete a 12-point review of systems while sedated on ventilator support. Objective - Vital Signs/Intake and Output Vital Signs (last 24 hours): Temp Pulse Resp BP Pulse Ox 101.2 F H 141 H 26 H 116/63 98 01/03/17 16:00 01/04/17 07:10 01/04/17 07:10 01/04/17 07:10 01/04/17 07:10 Intake and Output: 01/04/17 01/04/17 06:59 18:59 Intake Total 1528.4 93.2 Output Total 100 Balance 1428.4 93.2 - Medications Medications: Current Medications Emollient Ointment (Vaseline Oint) 5 gm TOP QID PRN Last Admin: 01/04/17 05:49 Dose: 5 gm Azithromycin 500 mg/ Sodium (Chloride) 250 mls @ 250 mls/hr IVPB DAILY [facility] Last Admin: 01/04/17 10:21 Dose: 250 mls/hr Micafungin Sodium 100 mg/ (Sodium Chloride) 100 mls @ 100 mls/hr IV Q24H [facility] Last Admin: 01/03/17 15:48 Dose: 100 mls/hr Norepinephrine Bitartrate 8 mg (/ Sodium Chloride) 258 mls @ 38.7 mls/hr IV .Q6H40M PRN; Protocol; 20 MCG/MIN PRN Reason: TITRATE PER MD ORDER Last Titration: 01/04/17 08:16 Dose: 27.13 mcg/min Dexmedetomidine HCl 200 mcg/ (Sodium Chloride) 50 mls @ 3.25 mls/hr IVPB TITR PRN; Protocol; 0.2 MCG/KG/HR PRN Reason: Agitation Last Titration: 01/03/17 13:00 Dose: 0 mcg/kg/hr Cefepime HCl (Maxipime Iv 2 Gm Premix) 100 mls @ 200 mls/hr IVPB Q24H [facility] Stop: 01/08/17 10:31 Last Admin: 01/04/17 10:21 Dose: 200 mls/hr Vasopressin 40 units/ Sodium (Chloride) 40 mls @ 0.6 mls/hr IV .Q24H [facility]; 0.01 UNITS/MIN PRN Reason: Protocol Last Titration: 01/04/17 07:45 Dose: 0.04 units/min Vancomycin/Sodium Chloride (Vancocin) 200 mls @ 133.333 mls/hr IVPB MWF [facility] Lorazepam (Ativan) 1 mg IVP Q3H PRN PRN Reason: Anxiety Last Admin: 01/04/17 05:30 Dose: 1 mg Nystatin (Nystop Topical Powder) 1 applic TOP BID [facility] Last Admin: 01/04/17 10:22 Dose: 1 appl Pantoprazole Sodium (Protonix Inj) 40 mg IVP DAILY [facility] Last Admin: 01/04/17 10:21 Dose: 40 mg - Labs Labs: 01/04/17 06:21 01/04/17 06:21 PT 17.7 SECONDS (9.7-12.2) H 12/30/16 10:43 INR 1.6 12/30/16 10:43 APTT 34 SECONDS (21-34) D 12/25/16 06:11 - Constitutional Appears: Toxic, Chronically Ill - Head Exam Head Exam: ATRAUMATIC, NORMOCEPHALIC - Eye Exam Eye Exam: PERRL Pupil Exam: PERRL. absent: Miosis, Mydriatic - ENT Exam ENT Exam: Mucous Membranes Dry, Normal Oropharynx - Neck Exam Neck Exam: Normal Inspection - Respiratory Exam Respiratory Exam: Rhonchi, Wheezes Additional comments: diffuse B/L lung field rhonchi with scattered wheezing - Cardiovascular Exam Cardiovascular Exam: RRR, +S1, +S2. absent: Gallop, Rubs - GI/Abdominal Exam GI & Abdominal Exam: Soft, Normal Bowel Sounds. absent: Distended, Firm, Guarding, Rigid, Tenderness, Organomegaly, Rebound - Extremities Exam Additional comments: 2-3+ B/L LE pitting edema - Neurological Exam Additional comments: intubated, PERRL, B/L equivocal Babinski - Psychiatric Exam Additional comments: unable to assess, intubated - Skin Skin Exam: Dry, Intact, Normal Color, Warm Assessment and Plan - Assessment and Plan (Free Text) Assessment: 61 year old female with history of CVA, SLE, Hypertension, and CHF with AICD placement presenting with shortness of breath. GI consultation for elevated LFTs. CT Pancreas without pancreatic mass or biliary obstruction but showing innumerable small liver nodules up to 7mm in size. Active treatment of ventilator dependent hypoxic respiratory failure on 12/24 secondary to community acquired pneumonia complicated by volume overload secondary to CHF decompensation, EF 26% with severe pulmonary hypertension, worsening metabolic acidosis, renal failure, and septic shock secondary to CAP/Ecoli UTI. No prior EGD or colonoscopy. Ventilator dependent hypoxic respiratory failure 2/2 RUL CAP/ CHF decompensation /severe pulmonary hypertension Septic shock 2/2 CAP/UTI Renal failure on hemodialysis Acute on chronic anemia s/p 1U (12/31), 1U (01/02), 1U (01/03) Plan: >H/H stable, appropriate response to transfusions >anemia multifactorial- possible PUD, renal failure, sepsis >continue PPI IV BID >nephrology managing- hemodialysis >ICU managing- vasopressor support >on Cefepime, Azithromycin, Micafungin >no plan for endoscopic evaluation >guarded prognosis <Kirill Garcia MD - Last Filed: 01/04/17 19:29> Objective - Vital Signs/Intake and Output Vital Signs (last 24 hours): Temp Pulse Resp BP Pulse Ox 100 F H 117 H 49 H 101/60 98 01/04/17 17:46 01/04/17 18:01 01/04/17 18:01 01/04/17 18:35 01/04/17 18:01 Intake and Output: 01/04/17 01/05/17 18:59 06:59 Intake Total 1553.0 Balance 1553.0 - Medications Medications: Current Medications Emollient Ointment (Vaseline Oint) 5 gm TOP QID PRN Last Admin: 01/04/17 05:49 Dose: 5 gm Azithromycin 500 mg/ Sodium (Chloride) 250 mls @ 250 mls/hr IVPB DAILY [facility] Last Admin: 01/04/17 10:21 Dose: 250 mls/hr Micafungin Sodium 100 mg/ (Sodium Chloride) 100 mls @ 100 mls/hr IV Q24H [facility] Last Admin: 01/04/17 18:34 Dose: 100 mls/hr Norepinephrine Bitartrate 8 mg (/ Sodium Chloride) 258 mls @ 38.7 mls/hr IV .Q6H40M PRN; Protocol; 20 MCG/MIN PRN Reason: TITRATE PER MD ORDER Last Titration: 01/04/17 08:16 Dose: 27.13 mcg/min Dexmedetomidine HCl 200 mcg/ (Sodium Chloride) 50 mls @ 3.25 mls/hr IVPB TITR PRN; Protocol; 0.2 MCG/KG/HR PRN Reason: Agitation Last Titration: 01/03/17 13:00 Dose: 0 mcg/kg/hr Cefepime HCl (Maxipime Iv 2 Gm Premix) 100 mls @ 200 mls/hr IVPB Q24H [facility] Stop: 01/08/17 10:31 Last Admin: 01/04/17 10:21 Dose: 200 mls/hr Vasopressin 40 units/ Sodium (Chloride) 40 mls @ 0.6 mls/hr IV .Q24H [facility]; 0.01 UNITS/MIN PRN Reason: Protocol Last Admin: 01/04/17 18:35 Dose: 2.4 mls/hr Vancomycin/Sodium Chloride (Vancocin) 200 mls @ 133.333 mls/hr IVPB MWF [facility] Last Admin: 01/04/17 18:34 Dose: 133.333 mls/hr Lorazepam (Ativan) 1 mg IVP Q3H PRN PRN Reason: Anxiety Last Admin: 01/04/17 05:30 Dose: 1 mg Nystatin (Nystop Topical Powder) 1 applic TOP BID [facility] Last Admin: 01/04/17 18:32 Dose: 1 appl Pantoprazole Sodium (Protonix Inj) 40 mg IVP DAILY [facility] Last Admin: 01/04/17 10:21 Dose: 40 mg - Labs Labs: 01/04/17 06:21 01/04/17 06:21 PT 17.7 SECONDS (9.7-12.2) H 12/30/16 10:43 INR 1.6 12/30/16 10:43 APTT 34 SECONDS (21-34) D 12/25/16 06:11 Attending/Attestation - Attestation I have personally seen and examined this patient.: Yes I have fully participated in the care of the patient.: Yes I have reviewed all pertinent clinical information, including history, physical exam and plan: Yes Notes (Text): 01/04/17 19:28 Patient seen and examined with GI fellow on rounds this am. This is a 61 year old female with history of CVA, SLE, Hypertension, and CHF with AICD placement presenting with shortness of breath s/p ventilator dependent hypoxic respiratory failure secondary to community acquired pneumonia complicated by volume overload secondary to CHF decompensation, EF 26% with severe pulmonary hypertension, worsening metabolic acidosis, renal failure, and septic shock secondary to CAP/Ecoli UTI. GI was initially following for abnormal LFT with no abnormal serologies. Likely reason for abnormal LFT was congestive hepatopathy and sepsis. Today reconsulted for black stools with drop in hb s/p 1 unit PRBC with appropriate response and no s/s of overt GI bleeding. H/Hct stable not necessitating endoscopic therapy. Continue PPI bid. Supportive care. Poor prognosis. Thank you for letting us participate in the care of this patient.
[2017-01-04] MEDS: Vancomycin 1 gm/NS 200 ml 200 ML IVPB SCH (18:34)
[2017-01-04] MEDS: Micafungin 100 MG in Sodium Chloride 0.9% 100 ML IV SCH (18:34)
--- NOTE | 2017-01-04 19:45 | CP.PCM.PN ---
Objective - Vital Signs/Intake and Output Vital Signs (last 24 hours): Temp Pulse Resp BP Pulse Ox 100 F H 117 H 49 H 101/60 98 01/04/17 17:46 01/04/17 18:01 01/04/17 18:01 01/04/17 18:35 01/04/17 18:01 Intake and Output: 01/04/17 01/05/17 18:59 06:59 Intake Total 1553.0 Balance 1553.0 - Medications Medications: Current Medications Emollient Ointment (Vaseline Oint) 5 gm TOP QID PRN Last Admin: 01/04/17 05:49 Dose: 5 gm Azithromycin 500 mg/ Sodium (Chloride) 250 mls @ 250 mls/hr IVPB DAILY [facility] Last Admin: 01/04/17 10:21 Dose: 250 mls/hr Micafungin Sodium 100 mg/ (Sodium Chloride) 100 mls @ 100 mls/hr IV Q24H [facility] Last Admin: 01/04/17 18:34 Dose: 100 mls/hr Norepinephrine Bitartrate 8 mg (/ Sodium Chloride) 258 mls @ 38.7 mls/hr IV .Q6H40M PRN; Protocol; 20 MCG/MIN PRN Reason: TITRATE PER MD ORDER Last Titration: 01/04/17 08:16 Dose: 27.13 mcg/min Dexmedetomidine HCl 200 mcg/ (Sodium Chloride) 50 mls @ 3.25 mls/hr IVPB TITR PRN; Protocol; 0.2 MCG/KG/HR PRN Reason: Agitation Last Titration: 01/03/17 13:00 Dose: 0 mcg/kg/hr Cefepime HCl (Maxipime Iv 2 Gm Premix) 100 mls @ 200 mls/hr IVPB Q24H [facility] Stop: 01/08/17 10:31 Last Admin: 01/04/17 10:21 Dose: 200 mls/hr Vasopressin 40 units/ Sodium (Chloride) 40 mls @ 0.6 mls/hr IV .Q24H [facility]; 0.01 UNITS/MIN PRN Reason: Protocol Last Admin: 01/04/17 18:35 Dose: 2.4 mls/hr Vancomycin/Sodium Chloride (Vancocin) 200 mls @ 133.333 mls/hr IVPB MWF [facility] Last Admin: 01/04/17 18:34 Dose: 133.333 mls/hr Lorazepam (Ativan) 1 mg IVP Q3H PRN PRN Reason: Anxiety Last Admin: 01/04/17 05:30 Dose: 1 mg Nystatin (Nystop Topical Powder) 1 applic TOP BID [facility] Last Admin: 01/04/17 18:32 Dose: 1 appl Pantoprazole Sodium (Protonix Inj) 40 mg IVP DAILY [facility] Last Admin: 01/04/17 10:21 Dose: 40 mg - Labs Labs: 01/04/17 06:21 01/04/17 06:21 PT 17.7 SECONDS (9.7-12.2) H 12/30/16 10:43 INR 1.6 12/30/16 10:43 APTT 34 SECONDS (21-34) D 12/25/16 06:11 Assessment and Plan (1) CHF (congestive heart failure) Status: Acute (2) Hyperbilirubinemia Status: Acute (3) Pneumonia Status: Acute (4) Septic shock Status: Acute
[2017-01-04 23:39] LABS: POTASSIUM 3.8 mmol/L (3.6-5.2)
[2017-01-04 23:41] LABS: BILIRUBIN,TOTAL 5.5 mg/dL (0.2-1.3)
[2017-01-04 23:42] LABS: ALB/GLOB RATIO 0.6 (1.0-2.1); CALCIUM 7.3 mg/dl (8.6-10.4); MAGNESIUM 1.9 mg/dL (1.6-2.3); PHOSPHOROUS 1.8 mg/dL (2.5-4.5); TOTAL PROTEIN 5.2 g/dL (6.3-8.3)
[2017-01-04 23:56] LABS: TROPONIN I 0.228 ng/mL (0.00-0.120)
[2017-01-05] MEDS: Acetaminophen 650mg/20.3ml solution UD PO PRN ×2 (02:45→11:14)
[2017-01-05 05:29] LABS: ABG ALLEN TEST POS; ABG MECHANICAL RATE 16; ARTERIAL BLOOD HGB O2 SAT 95.5 % (95.0-98.0); ATERIAL BLOOD GAS PEEP 5; CARBOXYHEMOGLOBIN 1.9 % (0.5-1.5); DRAW SITE RR; HHB 1.5 % (0.0-5.0); METHEMOGLOBIN 1.1 % (0.0-3.0)
[2017-01-05 06:36] LABS: BASO # 0.1 K/uL (0.0-0.2); BASO % 0.2 % (0.0-2.0); EOS # 0.1 K/uL (0.0-0.7); EOS % 0.6 % (0.0-4.0); HEMATOCRIT 28.5 % (34.0-47.0); LYMPH % 8.9 % (20.0-40.0); MEAN CELL VOLUME 99.9 fL (81.0-99.0); MEAN CORPUSCULAR HEMOGLOBIN 30.9 pg (27.0-31.0); MEAN PLATELET VOLUME 11.4 fL (7.2-11.7); MONO # 1.2 K/uL (0.0-0.8); MONO % 5.4 % (0.0-10.0); NRBC % 0.6 % (0.0-2.0); PLATELET COUNT 59 K/uL (130-400); RED CELL DISTRIBUTION WIDTH 21.3 % (11.5-14.5); WHITE BLOOD COUNT 22.7 K/uL (4.8-10.8)
[2017-01-05 06:47] LABS: POTASSIUM 3.8 mmol/L (3.6-5.2)
[2017-01-05 06:49] LABS: BILIRUBIN,TOTAL 5.9 mg/dL (0.2-1.3); TOTAL PROTEIN 5.2 g/dL (6.3-8.3)
[2017-01-05 06:50] LABS: ALB/GLOB RATIO 0.6 (1.0-2.1)
[2017-01-05] MEDS ORDERED: Potassium Phosphate 15 MMOLE in Sodium Chloride 0.9% 250 ML IVPB ONE (08:33)
--- NOTE | 2017-01-05 08:33 | CP.CCUPN ---
<Stephanie Echeverria - Last Filed: 01/05/17 12:11> CCU Subjective - Physician Review Subjective (Free Text): 12/28/16 20:48 Patient seen and examined at bedside. No acute distress. No acute events overnight per nursing. Patient back on AC/PRVC. Patient's persistent low BP halted attempts at a weaning trial. Patient able to follow commands. 12/29/16 15:52 Patient seen and examined at bedside. Per nursing decreased urine output. Patient began Milrinone drip yesterday at 0.5 mcg/kg/mi. Bp remains hypotensive but stable. 12/30/16 17:37 Patient seen and examined at bedside in no acute distress. Pt is intubated, on Milrinone drip, still low urine output . BP improved. Unable to obtain ROS at this point due to sedation. 12/31/16 18:19 Pt seen and examined at bedside . Patient's presentation appears to be worsening. Pt is intubated with continued low urine output. Current presentation as well as prognosis discussed with family members ( son and daughter-in law). Unable to obtain ROS at this time due to sedation. 01/01/17 08:26 Pt seen and examined at bedside . Patient's presentation remains the same. Pt is intubated with continued low urine output. Unable to obtain ROS at this time due to sedation. Prognosis discusses with son who wants full code status to remain. 01/05/17 12:02 Pt seen and examined in no acute distress. Patient's presentation remains unchanged. Receiving hemodialysis. Pt is intubated with continued low urine output. Unable to obtain ROS at this time due to sedation. Obtained consent for bronchoscopy through son. Son states that he wants us to continue all measures and medical efforts at this time. CCU Objective - Vital Signs / Intake & Output Vital Signs (Last 4 hours): Vital Signs Temp Pulse Resp BP Pulse Ox 01/05/17 07:01 100 H 20 114/71 96 01/05/17 07:00 99 H 22 96 01/05/17 06:01 104 H 19 116/93 H 84 L 01/05/17 06:00 100.1 F H 103 H 25 H 89 L 01/05/17 05:56 106 H 23 104/70 90 L 01/05/17 05:26 104 H 25 H 99 01/05/17 05:20 107 H 21 93 L 01/05/17 05:05 104 H 28 H 104/70 100 01/05/17 05:01 106 H 24 104/70 99 01/05/17 05:00 105 H 24 98 01/05/17 04:54 108 H 17 99 Intake and Output (Last 8hrs): Intake & Output 01/04/17 01/05/17 01/05/17 22:59 06:59 14:59 Intake Total 434.7 690.0 60.3 Output Total 50 Balance 434.7 640.0 60.3 Weight 149 lb 11.102 oz Intake: Intake, IV Amount 434.7 690.0 60.3 Right Proximal Port 14.4 19.2 2.4 Internal Jugular Right Medial Port 100 Internal Jugular Right Distal Port 233.0 16.6 Internal Jugular Right Distal Port 420.3 337.8 41.3 Output: Urine 50 Urethral ([place]) 50 - Physical Exam Head: Positive for: Atraumatic, Normocephalic Pupils: Positive for: PERRL Extroacular Muscles: Positive for: EOMI Conjunctiva: Positive for: Normal Mouth: Positive for: Moist Mucous Membranes Pharnyx: Positive for: Other (intubated, OG tube) Respiratory/Chest: Positive for: Good Air Exchange, Other (intubated) Cardiovascular: Positive for: Normal S1, S2. Negative for: Murmurs Abdomen: Positive for: Normal Bowel Sounds. Negative for: Tenderness, Distention Upper Extremity: Positive for: Other (scratches to upper extremities noted) Lower Extremity: Positive for: Other (1+ pitting edema to bilateral lower extremities ) Neurological: Positive for: Other (responsive to pain, corneal reflex, gag and cough reflexes intact, pupils reactive to light) Skin: Positive for: Warm, Dry Psychiatric: Positive for: Alert - Medications Active Medications: Active Medications Generic Name Dose Route Start Last Admin Trade Name Freq PRN Reason Stop Dose Admin Acetaminophen 650 mg 01/05/17 02:31 01/05/17 02:45 Tylenol 650mg/20.3ml Solution Ud PO 650 mg Q4 PRN Administration fever 101 & above Emollient Ointment 5 gm 12/27/16 21:16 01/04/17 05:49 Vaseline Oint TOP 5 gm QID PRN Administration Azithromycin 500 mg/ Sodium 250 mls @ 250 mls/hr 12/23/16 10:00 01/04/17 10:21 Chloride IVPB 250 mls/hr DAILY LINN Administration Micafungin Sodium 100 mg/ 100 mls @ 100 mls/hr 01/01/17 16:30 01/04/17 18:34 Sodium Chloride IV 100 mls/hr Q24H LINN Administration Norepinephrine Bitartrate 8 mg 258 mls @ 38.7 mls/hr 01/02/17 23:30 01/05/17 04 :30 / Sodium Chloride IV 41.3 mls/hr .Q6H40M PRN Administration TITRATE PER MD ORDER Protocol 20 MCG/MIN Dexmedetomidine HCl 200 mcg/ 50 mls @ 3.25 mls/hr 01/03/17 09:58 01/03/17 13:00 Sodium Chloride IVPB 0 mcg/kg/hr TITR PRN Titration Agitation Protocol 0.2 MCG/KG/HR Cefepime HCl 100 mls @ 200 mls/hr 01/03/17 10:30 01/04/17 10:21 Maxipime Iv 2 Gm Premix IVPB 01/08/17 10:31 200 mls/hr Q24H LINN Administration Vasopressin 40 units/ Sodium 40 mls @ 0.6 mls/hr 01/03/17 16:15 01/04/17 18:35 Chloride IV 2.4 mls/hr .Q24H LINN Administration Protocol 0.01 UNITS/MIN Vancomycin/Sodium Chloride 200 mls @ 133.333 mls/hr 01/04/17 13:00 01/04/17 18: 34 Vancocin IVPB 133.333 mls/hr MW LINN Administration Amiodarone HCl 900 mg/ 500 mls @ 33.33 mls/hr 01/04/17 23:03 01/04/17 23:20 Dextrose IV 01/05/17 14:03 33.33 mls/hr .Q15H1M ONE Administration Protocol 1 MG/MIN Amiodarone HCl 900 mg/ 500 mls @ 16.66 mls/hr 01/05/17 04:04 01/05/17 05:05 Dextrose IV 01/06/17 04:03 16.66 mls/hr .Q24H ONE Administration Protocol 0.5 MG/MIN Lorazepam 1 mg 01/01/17 20:56 01/04/17 22:30 Ativan IVP 1 mg Q3H PRN Administration Anxiety Nystatin 1 applic 01/01/17 10:15 01/04/17 18:32 Nystop Topical Powder TOP 1 appl BID LINN Administration Pantoprazole Sodium 40 mg 12/30/16 10:00 01/04/17 10:21 Protonix Inj IVP 40 mg DAILY LINN Administration - Patient Studies Lab Studies: Microbiology Studies 01/02/17 Unknown Ova and Parasite Concentrate Exam - Final Stool Lab Studies 01/05/17 01/05/17 01/05/17 Range/Units 07:20 06:30 06:29 WBC 22.7 H (4.8-10.8) K/uL RBC 2.85 L (3.80-5.20) Mil/uL Hgb 8.8 L (11.0-16.0) g/dL Hct 28.5 L (34.0-47.0) % MCV 99.9 H D (81.0-99.0) fL MCH 30.9 (27.0-31.0) pg MCHC 31.0 L (33.0-37.0) g/dL RDW 21.3 H (11.5-14.5) % Plt Count 59 L (130-400) K/uL MPV 11.4 (7.2-11.7) fL Neut % (Auto) 84.9 H (50.0-75.0) % Lymph % (Auto) 8.9 L (20.0-40.0) % Sully % (Auto) 5.4 (0.0-10.0) % Eos % (Auto) 0.6 (0.0-4.0) % Baso % (Auto) 0.2 (0.0-2.0) % Neut # 19.2 H (1.8-7.0) K/uL Lymph # 2.0 (1.0-4.3) K/uL Sully # 1.2 H (0.0-0.8) K/uL Eos # 0.1 (0.0-0.7) K/uL Baso # 0.1 (0.0-0.2) K/uL Neutrophils % (Manual) (50-75) % Band Neutrophils % (0-2) % Lymphocytes % (Manual) (20-40) % Monocytes % (Manual) (0-10) % Myelocytes % (0-0) % Nucleated RBC % (0-0) % Platelet Estimate (NORMAL) Polychromasia Poikilocytosis (manual Anisocytosis (manual) Macrocytosis (manual) Target Cells Ovalocytes Orin Cells Puncture Site pCO2 (35-45) mm/Hg pO2 (80-100) mm/Hg HCO3 (21-28) mmol/L ABG pH (7.35-7.45) ABG Total CO2 (22-28) mmol/L ABG O2 Saturation (95-98) % ABG Base Excess (-2.0-3.0) mmol/L ABG Hemoglobin (11.7-17.4) g/dL ABG Carboxyhemoglobin (0.5-1.5) % POC ABG HHb (Measured) (0.0-5.0) % ABG Methemoglobin (0.0-3.0) % Billy Test A-a O2 Difference mm/Hg Respiratory Index Hgb O2 Saturation (95.0-98.0) % Mechanical Rate FiO2 % Tidal Volume PEEP Sodium 134 (132-148) mmol/L Potassium 3.8 (3.6-5.2) mmol/L Chloride 95 L (98-107) mmol/L Carbon Dioxide 23 (22-30) mmol/L Anion Gap 20 (10-20) BUN 21 H (7-17) mg/dL Creatinine 2.2 H (0.7-1.2) MG/DL Est GFR ( Amer) 28 Est GFR (Non-Af Amer) 23 POC Glucose (mg/dL) 175 H 120 H (65-110) mg/dL Random Glucose 116 H (65-105) mg/dL Calcium 7.0 L (8.6-10.4) mg/dl Phosphorus 2.0 L (2.5-4.5) mg/dL Magnesium 2.0 (1.6-2.3) mg/dL Total Bilirubin 5.9 H (0.2-1.3) mg/dL AST 97 H (14-36) U/L ALT 69 H (9-52) U/L Alkaline Phosphatase 161 H (38-126) U/L CK-MB (Mass) (0.0-3.38) ng/mL Troponin I (0.00-0.120) ng/mL Total Protein 5.2 L (6.3-8.3) g/dL Albumin 2.0 L (3.5-5.0) g/dL Globulin 3.1 (2.2-3.9) gm/dL Albumin/Globulin Ratio 0.6 L (1.0-2.1) 01/05/17 01/05/17 01/05/17 Range/Units 05:12 04:48 02:05 WBC (4.8-10.8) K/uL RBC (3.80-5.20) Mil/uL Hgb (11.0-16.0) g/dL Hct (34.0-47.0) % MCV (81.0-99.0) fL MCH (27.0-31.0) pg MCHC (33.0-37.0) g/dL RDW (11.5-14.5) % Plt Count (130-400) K/uL MPV (7.2-11.7) fL Neut % (Auto) (50.0-75.0) % Lymph % (Auto) (20.0-40.0) % Sully % (Auto) (0.0-10.0) % Eos % (Auto) (0.0-4.0) % Baso % (Auto) (0.0-2.0) % Neut # (1.8-7.0) K/uL Lymph # (1.0-4.3) K/uL Sully # (0.0-0.8) K/uL Eos # (0.0-0.7) K/uL Baso # (0.0-0.2) K/uL Neutrophils % (Manual) (50-75) % Band Neutrophils % (0-2) % Lymphocytes % (Manual) (20-40) % Monocytes % (Manual) (0-10) % Myelocytes % (0-0) % Nucleated RBC % (0-0) % Platelet Estimate (NORMAL) Polychromasia Poikilocytosis (manual Anisocytosis (manual) Macrocytosis (manual) Target Cells Ovalocytes Orin Cells Puncture Site Rr pCO2 36 (35-45) mm/Hg pO2 78 L (80-100) mm/Hg HCO3 24.8 (21-28) mmol/L ABG pH 7.43 (7.35-7.45) ABG Total CO2 25.0 (22-28) mmol/L ABG O2 Saturation 98.5 H (95-98) % ABG Base Excess -0.2 (-2.0-3.0) mmol/L ABG Hemoglobin 9.1 L (11.7-17.4) g/dL ABG Carboxyhemoglobin 1.9 H (0.5-1.5) % POC ABG HHb (Measured) 1.5 (0.0-5.0) % ABG Methemoglobin 1.1 (0.0-3.0) % Billy Test Pos A-a O2 Difference 376.0 mm/Hg Respiratory Index 4.8 Hgb O2 Saturation 95.5 (95.0-98.0) % Mechanical Rate 16 FiO2 70.0 % Tidal Volume 500 PEEP 5 Sodium (132-148) mmol/L Potassium (3.6-5.2) mmol/L Chloride (98-107) mmol/L Carbon Dioxide (22-30) mmol/L Anion Gap (10-20) BUN (7-17) mg/dL Creatinine (0.7-1.2) MG/DL Est GFR ( Amer) Est GFR (Non-Af Amer) POC Glucose (mg/dL) 120 H 92 (65-110) mg/dL Random Glucose (65-105) mg/dL Calcium (8.6-10.4) mg/dl Phosphorus (2.5-4.5) mg/dL Magnesium (1.6-2.3) mg/dL Total Bilirubin (0.2-1.3) mg/dL AST (14-36) U/L ALT (9-52) U/L Alkaline Phosphatase (38-126) U/L CK-MB (Mass) (0.0-3.38) ng/mL Troponin I (0.00-0.120) ng/mL Total Protein (6.3-8.3) g/dL Albumin (3.5-5.0) g/dL Globulin (2.2-3.9) gm/dL Albumin/Globulin Ratio (1.0-2.1) 01/04/17 01/04/17 01/04/17 Range/Units 23:27 23:15 22:22 WBC (4.8-10.8) K/uL RBC (3.80-5.20) Mil/uL Hgb (11.0-16.0) g/dL Hct (34.0-47.0) % MCV (81.0-99.0) fL MCH (27.0-31.0) pg MCHC (33.0-37.0) g/dL RDW (11.5-14.5) % Plt Count (130-400) K/uL MPV (7.2-11.7) fL Neut % (Auto) (50.0-75.0) % Lymph % (Auto) (20.0-40.0) % Sully % (Auto) (0.0-10.0) % Eos % (Auto) (0.0-4.0) % Baso % (Auto) (0.0-2.0) % Neut # (1.8-7.0) K/uL Lymph # (1.0-4.3) K/uL Sully # (0.0-0.8) K/uL Eos # (0.0-0.7) K/uL Baso # (0.0-0.2) K/uL Neutrophils % (Manual) (50-75) % Band Neutrophils % (0-2) % Lymphocytes % (Manual) (20-40) % Monocytes % (Manual) (0-10) % Myelocytes % (0-0) % Nucleated RBC % (0-0) % Platelet Estimate (NORMAL) Polychromasia Poikilocytosis (manual Anisocytosis (manual) Macrocytosis (manual) Target Cells Ovalocytes [place] Cells Puncture Site pCO2 (35-45) mm/Hg pO2 (80-100) mm/Hg HCO3 (21-28) mmol/L ABG pH (7.35-7.45) ABG Total CO2 (22-28) mmol/L ABG O2 Saturation (95-98) % ABG Base Excess (-2.0-3.0) mmol/L ABG Hemoglobin (11.7-17.4) g/dL ABG Carboxyhemoglobin (0.5-1.5) % POC ABG HHb (Measured) (0.0-5.0) % ABG Methemoglobin (0.0-3.0) % Billy Test A-a O2 Difference mm/Hg Respiratory Index Hgb O2 Saturation (95.0-98.0) % Mechanical Rate FiO2 % Tidal Volume PEEP Sodium 134 (132-148) mmol/L Potassium 3.8 (3.6-5.2) mmol/L Chloride 98 (98-107) mmol/L Carbon Dioxide 24 (22-30) mmol/L Anion Gap 15 (10-20) BUN 19 H (7-17) mg/dL Creatinine 2.2 H (0.7-1.2) MG/DL Est GFR ( Amer) 28 Est GFR (Non-Af Amer) 23 POC Glucose (mg/dL) 104 90 (65-110) mg/dL Random Glucose 91 (65-105) mg/dL Calcium 7.3 L (8.6-10.4) mg/dl Phosphorus 1.8 L (2.5-4.5) mg/dL Magnesium 1.9 (1.6-2.3) mg/dL Total Bilirubin 5.5 H (0.2-1.3) mg/dL AST 87 H (14-36) U/L ALT 78 H (9-52) U/L Alkaline Phosphatase 159 H (38-126) U/L CK-MB (Mass) 1.20 (0.0-3.38) ng/mL Troponin I 0.2280 H* (0.00-0.120) ng/mL Total Protein 5.2 L (6.3-8.3) g/dL Albumin 1.9 L (3.5-5.0) g/dL Globulin 3.3 (2.2-3.9) gm/dL Albumin/Globulin Ratio 0.6 L (1.0-2.1) 01/04/17 01/04/17 01/04/17 Range/Units 21:08 19:52 17:45 WBC (4.8-10.8) K/uL RBC (3.80-5.20) Mil/uL Hgb (11.0-16.0) g/dL Hct (34.0-47.0) % MCV (81.0-99.0) fL MCH (27.0-31.0) pg MCHC (33.0-37.0) g/dL RDW (11.5-14.5) % Plt Count (130-400) K/uL MPV (7.2-11.7) fL Neut % (Auto) (50.0-75.0) % Lymph % (Auto) (20.0-40.0) % Sully % (Auto) (0.0-10.0) % Eos % (Auto) (0.0-4.0) % Baso % (Auto) (0.0-2.0) % Neut # (1.8-7.0) K/uL Lymph # (1.0-4.3) K/uL Sully # (0.0-0.8) K/uL Eos # (0.0-0.7) K/uL Baso # (0.0-0.2) K/uL Neutrophils % (Manual) (50-75) % Band Neutrophils % (0-2) % Lymphocytes % (Manual) (20-40) % Monocytes % (Manual) (0-10) % Myelocytes % (0-0) % Nucleated RBC % (0-0) % Platelet Estimate (NORMAL) Polychromasia Poikilocytosis (manual Anisocytosis (manual) Macrocytosis (manual) Target Cells Ovalocytes Orin Cells Puncture Site pCO2 (35-45) mm/Hg pO2 (80-100) mm/Hg HCO3 (21-28) mmol/L ABG pH (7.35-7.45) ABG Total CO2 (22-28) mmol/L ABG O2 Saturation (95-98) % ABG Base Excess (-2.0-3.0) mmol/L ABG Hemoglobin (11.7-17.4) g/dL ABG Carboxyhemoglobin (0.5-1.5) % POC ABG HHb (Measured) (0.0-5.0) % ABG Methemoglobin (0.0-3.0) % Billy Test A-a O2 Difference mm/Hg Respiratory Index Hgb O2 Saturation (95.0-98.0) % Mechanical Rate FiO2 % Tidal Volume PEEP Sodium (132-148) mmol/L Potassium (3.6-5.2) mmol/L Chloride (98-107) mmol/L Carbon Dioxide (22-30) mmol/L Anion Gap (10-20) BUN (7-17) mg/dL Creatinine (0.7-1.2) MG/DL Est GFR ( Amer) Est GFR (Non-Af Amer) POC Glucose (mg/dL) 108 104 88 (65-110) mg/dL Random Glucose (65-105) mg/dL Calcium (8.6-10.4) mg/dl Phosphorus (2.5-4.5) mg/dL Magnesium (1.6-2.3) mg/dL Total Bilirubin (0.2-1.3) mg/dL AST (14-36) U/L ALT (9-52) U/L Alkaline Phosphatase (38-126) U/L CK-MB (Mass) (0.0-3.38) ng/mL Troponin I (0.00-0.120) ng/mL Total Protein (6.3-8.3) g/dL Albumin (3.5-5.0) g/dL Globulin (2.2-3.9) gm/dL Albumin/Globulin Ratio (1.0-2.1) 01/04/17 01/04/17 01/04/17 Range/Units 16:59 14:55 13:31 WBC (4.8-10.8) K/uL RBC (3.80-5.20) Mil/uL Hgb (11.0-16.0) g/dL Hct (34.0-47.0) % MCV (81.0-99.0) fL MCH (27.0-31.0) pg MCHC (33.0-37.0) g/dL RDW (11.5-14.5) % Plt Count (130-400) K/uL MPV (7.2-11.7) fL Neut % (Auto) (50.0-75.0) % Lymph % (Auto) (20.0-40.0) % Sully % (Auto) (0.0-10.0) % Eos % (Auto) (0.0-4.0) % Baso % (Auto) (0.0-2.0) % Neut # (1.8-7.0) K/uL Lymph # (1.0-4.3) K/uL Sully # (0.0-0.8) K/uL Eos # (0.0-0.7) K/uL Baso # (0.0-0.2) K/uL Neutrophils % (Manual) (50-75) % Band Neutrophils % (0-2) % Lymphocytes % (Manual) (20-40) % Monocytes % (Manual) (0-10) % Myelocytes % (0-0) % Nucleated RBC % (0-0) % Platelet Estimate (NORMAL) Polychromasia Poikilocytosis (manual Anisocytosis (manual) Macrocytosis (manual) Target Cells Ovalocytes Orin Cells Puncture Site pCO2 (35-45) mm/Hg pO2 (80-100) mm/Hg HCO3 (21-28) mmol/L ABG pH (7.35-7.45) ABG Total CO2 (22-28) mmol/L ABG O2 Saturation (95-98) % ABG Base Excess (-2.0-3.0) mmol/L ABG Hemoglobin (11.7-17.4) g/dL ABG Carboxyhemoglobin (0.5-1.5) % POC ABG HHb (Measured) (0.0-5.0) % ABG Methemoglobin (0.0-3.0) % Billy Test A-a O2 Difference mm/Hg Respiratory Index Hgb O2 Saturation (95.0-98.0) % Mechanical Rate FiO2 % Tidal Volume PEEP Sodium (132-148) mmol/L Potassium (3.6-5.2) mmol/L Chloride (98-107) mmol/L Carbon Dioxide (22-30) mmol/L Anion Gap (10-20) BUN (7-17) mg/dL Creatinine (0.7-1.2) MG/DL Est GFR ( Amer) Est GFR (Non-Af Amer) POC Glucose (mg/dL) 80 85 108 (65-110) mg/dL Random Glucose (65-105) mg/dL Calcium (8.6-10.4) mg/dl Phosphorus (2.5-4.5) mg/dL Magnesium (1.6-2.3) mg/dL Total Bilirubin (0.2-1.3) mg/dL AST (14-36) U/L ALT (9-52) U/L Alkaline Phosphatase (38-126) U/L CK-MB (Mass) (0.0-3.38) ng/mL Troponin I (0.00-0.120) ng/mL Total Protein (6.3-8.3) g/dL Albumin (3.5-5.0) g/dL Globulin (2.2-3.9) gm/dL Albumin/Globulin Ratio (1.0-2.1) 01/04/17 01/04/17 01/04/17 Range/Units 12:00 10:46 09:29 WBC (4.8-10.8) K/uL RBC (3.80-5.20) Mil/uL Hgb (11.0-16.0) g/dL Hct (34.0-47.0) % MCV (81.0-99.0) fL MCH (27.0-31.0) pg MCHC (33.0-37.0) g/dL RDW (11.5-14.5) % Plt Count (130-400) K/uL MPV (7.2-11.7) fL Neut % (Auto) (50.0-75.0) % Lymph % (Auto) (20.0-40.0) % Sully % (Auto) (0.0-10.0) % Eos % (Auto) (0.0-4.0) % Baso % (Auto) (0.0-2.0) % Neut # (1.8-7.0) K/uL Lymph # (1.0-4.3) K/uL Sully # (0.0-0.8) K/uL Eos # (0.0-0.7) K/uL Baso # (0.0-0.2) K/uL Neutrophils % (Manual) (50-75) % Band Neutrophils % (0-2) % Lymphocytes % (Manual) (20-40) % Monocytes % (Manual) (0-10) % Myelocytes % (0-0) % Nucleated RBC % (0-0) % Platelet Estimate (NORMAL) Polychromasia Poikilocytosis (manual Anisocytosis (manual) Macrocytosis (manual) Target Cells Ovalocytes Orin Cells Puncture Site pCO2 (35-45) mm/Hg pO2 (80-100) mm/Hg HCO3 (21-28) mmol/L ABG pH (7.35-7.45) ABG Total CO2 (22-28) mmol/L ABG O2 Saturation (95-98) % ABG Base Excess (-2.0-3.0) mmol/L ABG Hemoglobin (11.7-17.4) g/dL ABG Carboxyhemoglobin (0.5-1.5) % POC ABG HHb (Measured) (0.0-5.0) % ABG Methemoglobin (0.0-3.0) % Billy Test A-a O2 Difference mm/Hg Respiratory Index Hgb O2 Saturation (95.0-98.0) % Mechanical Rate FiO2 % Tidal Volume PEEP Sodium (132-148) mmol/L Potassium (3.6-5.2) mmol/L Chloride (98-107) mmol/L Carbon Dioxide (22-30) mmol/L Anion Gap (10-20) BUN (7-17) mg/dL Creatinine (0.7-1.2) MG/DL Est GFR ( Amer) Est GFR (Non-Af Amer) POC Glucose (mg/dL) 79 88 91 (65-110) mg/dL Random Glucose (65-105) mg/dL Calcium (8.6-10.4) mg/dl Phosphorus (2.5-4.5) mg/dL Magnesium (1.6-2.3) mg/dL Total Bilirubin (0.2-1.3) mg/dL AST (14-36) U/L ALT (9-52) U/L Alkaline Phosphatase (38-126) U/L CK-MB (Mass) (0.0-3.38) ng/mL Troponin I (0.00-0.120) ng/mL Total Protein (6.3-8.3) g/dL Albumin (3.5-5.0) g/dL Globulin (2.2-3.9) gm/dL Albumin/Globulin Ratio (1.0-2.1) 01/04/17 Range/Units 06:21 WBC (4.8-10.8) K/uL RBC (3.80-5.20) Mil/uL Hgb (11.0-16.0) g/dL Hct (34.0-47.0) % MCV (81.0-99.0) fL MCH (27.0-31.0) pg MCHC (33.0-37.0) g/dL RDW (11.5-14.5) % Plt Count (130-400) K/uL MPV (7.2-11.7) fL Neut % (Auto) (50.0-75.0) % Lymph % (Auto) (20.0-40.0) % Sully % (Auto) (0.0-10.0) % Eos % (Auto) (0.0-4.0) % Baso % (Auto) (0.0-2.0) % Neut # (1.8-7.0) K/uL Lymph # (1.0-4.3) K/uL Sully # (0.0-0.8) K/uL Eos # (0.0-0.7) K/uL Baso # (0.0-0.2) K/uL Neutrophils % (Manual) 87 H (50-75) % Band Neutrophils % 4 H (0-2) % Lymphocytes % (Manual) 5 L (20-40) % Monocytes % (Manual) 3 (0-10) % Myelocytes % 1 H (0-0) % Nucleated RBC % 3 H (0-0) % Platelet Estimate Decreased L (NORMAL) Polychromasia Slight Poikilocytosis (manual Slight Anisocytosis (manual) Moderate Macrocytosis (manual) Slight Target Cells Slight Ovalocytes Slight Orin Cells Slight Puncture Site pCO2 (35-45) mm/Hg pO2 (80-100) mm/Hg HCO3 (21-28) mmol/L ABG pH (7.35-7.45) ABG Total CO2 (22-28) mmol/L ABG O2 Saturation (95-98) % ABG Base Excess (-2.0-3.0) mmol/L ABG Hemoglobin (11.7-17.4) g/dL ABG Carboxyhemoglobin (0.5-1.5) % POC ABG HHb (Measured) (0.0-5.0) % ABG Methemoglobin (0.0-3.0) % Billy Test A-a O2 Difference mm/Hg Respiratory Index Hgb O2 Saturation (95.0-98.0) % Mechanical Rate FiO2 % Tidal Volume PEEP Sodium (132-148) mmol/L Potassium (3.6-5.2) mmol/L Chloride (98-107) mmol/L Carbon Dioxide (22-30) mmol/L Anion Gap (10-20) BUN (7-17) mg/dL Creatinine (0.7-1.2) MG/DL Est GFR ( Amer) Est GFR (Non-Af Amer) POC Glucose (mg/dL) (65-110) mg/dL Random Glucose (65-105) mg/dL Calcium (8.6-10.4) mg/dl Phosphorus (2.5-4.5) mg/dL Magnesium (1.6-2.3) mg/dL Total Bilirubin (0.2-1.3) mg/dL AST (14-36) U/L ALT (9-52) U/L Alkaline Phosphatase (38-126) U/L CK-MB (Mass) (0.0-3.38) ng/mL Troponin I (0.00-0.120) ng/mL Total Protein (6.3-8.3) g/dL Albumin (3.5-5.0) g/dL Globulin (2.2-3.9) gm/dL Albumin/Globulin Ratio (1.0-2.1) Laboratory Results - last 24 hr 01/04/17 01/04/17 01/04/17 06:21 09:29 10:46 WBC RBC Hgb Hct MCV MCH MCHC RDW Plt Count MPV Neut % (Auto) Lymph % (Auto) [place] % (Auto) Eos % (Auto) Baso % (Auto) Neut # Lymph # [place] # Eos # Baso # Neutrophils % (Manual) 87 H Band Neutrophils % 4 H Lymphocytes % (Manual) 5 L Monocytes % (Manual) 3 Myelocytes % 1 H Nucleated RBC % 3 H Platelet Estimate Decreased L Polychromasia Slight Poikilocytosis (manual Slight Anisocytosis (manual) Moderate Macrocytosis (manual) Slight Target Cells Slight Ovalocytes Slight Orin Cells Slight Puncture Site pCO2 pO2 HCO3 ABG pH ABG Total CO2 ABG O2 Saturation ABG Base Excess ABG Hemoglobin ABG Carboxyhemoglobin POC ABG HHb (Measured) ABG Methemoglobin Billy Test A-a O2 Difference Respiratory Index Hgb O2 Saturation Mechanical Rate FiO2 Tidal Volume PEEP Sodium Potassium Chloride Carbon Dioxide Anion Gap BUN Creatinine Est GFR ( Amer) Est GFR (Non-Af Amer) POC Glucose (mg/dL) 91 88 Random Glucose Calcium Phosphorus Magnesium Total Bilirubin AST ALT Alkaline Phosphatase CK-MB (Mass) Troponin I Total Protein Albumin Globulin Albumin/Globulin Ratio 01/04/17 01/04/17 01/04/17 12:00 13:31 14:55 WBC RBC Hgb Hct MCV MCH MCHC RDW Plt Count MPV Neut % (Auto) Lymph % (Auto) Sully % (Auto) Eos % (Auto) Baso % (Auto) Neut # Lymph # [place] # Eos # Baso # Neutrophils % (Manual) Band Neutrophils % Lymphocytes % (Manual) Monocytes % (Manual) Myelocytes % Nucleated RBC % Platelet Estimate Polychromasia Poikilocytosis (manual Anisocytosis (manual) Macrocytosis (manual) Target Cells Ovalocytes Orin Cells Puncture Site pCO2 pO2 HCO3 ABG pH ABG Total CO2 ABG O2 Saturation ABG Base Excess ABG Hemoglobin ABG Carboxyhemoglobin POC ABG HHb (Measured) ABG Methemoglobin Billy Test A-a O2 Difference Respiratory Index Hgb O2 Saturation Mechanical Rate FiO2 Tidal Volume PEEP Sodium Potassium Chloride Carbon Dioxide Anion Gap BUN Creatinine Est GFR ( Amer) Est GFR (Non-Af Amer) POC Glucose (mg/dL) 79 108 85 Random Glucose Calcium Phosphorus Magnesium Total Bilirubin AST ALT Alkaline Phosphatase CK-MB (Mass) Troponin I Total Protein Albumin Globulin Albumin/Globulin Ratio 01/04/17 01/04/17 01/04/17 16:59 17:45 19:52 WBC RBC Hgb Hct MCV MCH MCHC RDW Plt Count MPV Neut % (Auto) Lymph % (Auto) S[place] % (Auto) Eos % (Auto) Baso % (Auto) Neut # Lymph # [place] # Eos # Baso # Neutrophils % (Manual) Band Neutrophils % Lymphocytes % (Manual) Monocytes % (Manual) Myelocytes % Nucleated RBC % Platelet Estimate Polychromasia Poikilocytosis (manual Anisocytosis (manual) Macrocytosis (manual) Target Cells Ovalocytes Orin Cells Puncture Site pCO2 pO2 HCO3 ABG pH ABG Total CO2 ABG O2 Saturation ABG Base Excess ABG Hemoglobin ABG Carboxyhemoglobin POC ABG HHb (Measured) ABG Methemoglobin Billy Test A-a O2 Difference Respiratory Index Hgb O2 Saturation Mechanical Rate FiO2 Tidal Volume PEEP Sodium Potassium Chloride Carbon Dioxide Anion Gap BUN Creatinine Est GFR ( Amer) Est GFR (Non-Af Amer) POC Glucose (mg/dL) 80 88 104 Random Glucose Calcium Phosphorus Magnesium Total Bilirubin AST ALT Alkaline Phosphatase CK-MB (Mass) Troponin I Total Protein Albumin Globulin Albumin/Globulin Ratio 01/04/17 01/04/17 01/04/17 21:08 22:22 23:15 WBC RBC Hgb Hct MCV MCH MCHC RDW Plt Count MPV Neut % (Auto) Lymph % (Auto) Sully % (Auto) Eos % (Auto) Baso % (Auto) Neut # Lymph # [place] # Eos # Baso # Neutrophils % (Manual) Band Neutrophils % Lymphocytes % (Manual) Monocytes % (Manual) Myelocytes % Nucleated RBC % Platelet Estimate Polychromasia Poikilocytosis (manual Anisocytosis (manual) Macrocytosis (manual) Target Cells Ovalocytes [place] Cells Puncture Site pCO2 pO2 HCO3 ABG pH ABG Total CO2 ABG O2 Saturation ABG Base Excess ABG Hemoglobin ABG Carboxyhemoglobin POC ABG HHb (Measured) ABG Methemoglobin Billy Test A-a O2 Difference Respiratory Index Hgb O2 Saturation Mechanical Rate FiO2 Tidal Volume PEEP Sodium Potassium Chloride Carbon Dioxide Anion Gap BUN Creatinine Est GFR ( Amer) Est GFR (Non-Af Amer) POC Glucose (mg/dL) 108 90 104 Random Glucose Calcium Phosphorus Magnesium Total Bilirubin AST ALT Alkaline Phosphatase CK-MB (Mass) Troponin I Total Protein Albumin Globulin Albumin/Globulin Ratio 01/04/17 01/05/17 01/05/17 23:27 02:05 04:48 WBC RBC Hgb Hct MCV MCH MCHC RDW Plt Count MPV Neut % (Auto) Lymph % (Auto) [place] % (Auto) Eos % (Auto) Baso % (Auto) Neut # Lymph # [place] # Eos # Baso # Neutrophils % (Manual) Band Neutrophils % Lymphocytes % (Manual) Monocytes % (Manual) Myelocytes % Nucleated RBC % Platelet Estimate Polychromasia Poikilocytosis (manual Anisocytosis (manual) Macrocytosis (manual) Target Cells Ovalocytes Orin Cells Puncture Site pCO2 pO2 HCO3 ABG pH ABG Total CO2 ABG O2 Saturation ABG Base Excess ABG Hemoglobin ABG Carboxyhemoglobin POC ABG HHb (Measured) ABG Methemoglobin Billy Test A-a O2 Difference Respiratory Index Hgb O2 Saturation Mechanical Rate FiO2 Tidal Volume PEEP Sodium 134 Potassium 3.8 Chloride 98 Carbon Dioxide 24 Anion Gap 15 BUN 19 H Creatinine 2.2 H Est GFR ( Amer) 28 Est GFR (Non-Af Amer) 23 POC Glucose (mg/dL) 92 120 H Random Glucose 91 Calcium 7.3 L Phosphorus 1.8 L Magnesium 1.9 Total Bilirubin 5.5 H AST 87 H ALT 78 H Alkaline Phosphatase 159 H CK-MB (Mass) 1.20 Troponin I 0.2280 H* Total Protein 5.2 L Albumin 1.9 L Globulin 3.3 Albumin/Globulin Ratio 0.6 L 01/05/17 01/05/17 01/05/17 05:12 06:29 06:30 WBC 22.7 H RBC 2.85 L Hgb 8.8 L Hct 28.5 L MCV 99.9 H D MCH 30.9 MCHC 31.0 L RDW 21.3 H Plt Count 59 L MPV 11.4 Neut % (Auto) 84.9 H Lymph % (Auto) 8.9 L Sully % (Auto) 5.4 Eos % (Auto) 0.6 Baso % (Auto) 0.2 Neut # 19.2 H Lymph # 2.0 Sully # 1.2 H Eos # 0.1 Baso # 0.1 Neutrophils % (Manual) Band Neutrophils % Lymphocytes % (Manual) Monocytes % (Manual) Myelocytes % Nucleated RBC % Platelet Estimate Polychromasia Poikilocytosis (manual Anisocytosis (manual) Macrocytosis (manual) Target Cells Ovalocytes Orin Cells Puncture Site Rr pCO2 36 pO2 78 L HCO3 24.8 ABG pH 7.43 ABG Total CO2 25.0 ABG O2 Saturation 98.5 H ABG Base Excess -0.2 ABG Hemoglobin 9.1 L ABG Carboxyhemoglobin 1.9 H POC ABG HHb (Measured) 1.5 ABG Methemoglobin 1.1 Billy Test Pos A-a O2 Difference 376.0 Respiratory Index 4.8 Hgb O2 Saturation 95.5 Mechanical Rate 16 FiO2 70.0 Tidal Volume 500 PEEP 5 Sodium 134 Potassium 3.8 Chloride 95 L Carbon Dioxide 23 Anion Gap 20 BUN 21 H Creatinine 2.2 H Est GFR ( Amer) 28 Est GFR (Non-Af Amer) 23 POC Glucose (mg/dL) 120 H Random Glucose 116 H Calcium 7.0 L Phosphorus 2.0 L Magnesium 2.0 Total Bilirubin 5.9 H AST 97 H ALT 69 H Alkaline Phosphatase 161 H CK-MB (Mass) Troponin I Total Protein 5.2 L Albumin 2.0 L Globulin 3.1 Albumin/Globulin Ratio 0.6 L 01/05/17 07:20 WBC RBC Hgb Hct MCV MCH MCHC RDW Plt Count MPV Neut % (Auto) Lymph % (Auto) Sully % (Auto) Eos % (Auto) Baso % (Auto) Neut # Lymph # Sully # Eos # Baso # Neutrophils % (Manual) Band Neutrophils % Lymphocytes % (Manual) Monocytes % (Manual) Myelocytes % Nucleated RBC % Platelet Estimate Polychromasia Poikilocytosis (manual Anisocytosis (manual) Macrocytosis (manual) Target Cells Ovalocytes [place] Cells Puncture Site pCO2 pO2 HCO3 ABG pH ABG Total CO2 ABG O2 Saturation ABG Base Excess ABG Hemoglobin ABG Carboxyhemoglobin POC ABG HHb (Measured) ABG Methemoglobin Billy Test A-a O2 Difference Respiratory Index Hgb O2 Saturation Mechanical Rate FiO2 Tidal Volume PEEP Sodium Potassium Chloride Carbon Dioxide Anion Gap BUN Creatinine Est GFR ( Amer) Est GFR (Non-Af Amer) POC Glucose (mg/dL) 175 H Random Glucose Calcium Phosphorus Magnesium Total Bilirubin AST ALT Alkaline Phosphatase CK-MB (Mass) Troponin I Total Protein Albumin Globulin Albumin/Globulin Ratio Fingerstick Blood Sugar Results: 120 Review of Systems - Review of Systems Review of Systems: as noted in subjective Assessment/Plan - Assessment and Plan (Free Text) Assessment: 61-year-old female with history of lupus disease admitted with a pneumonia, acute respiratory failure, complicated with fluid overload and renal insufficiency. Currently patient is receiving hemodialysis, with poor prognosis noted. Supportive measures noted. Plan: Neuro: Transitioning to Versed pushes. Pulm: Acute respiratory failure, on PRVC. XRAY- diffuse infiltrative disease noted- refer to complete report Consent obtained for Bronchoscopy CV: Cardiogenic shock with septic shock, Milrinone stopped On Levophed drip, on vasopressin drip due to continued hypotension Hem: Thrombocytopenia secondary to sepsis. Patient has had continuing anemia despite blood transfusions, this could be secondary to critical illness or ongoing slow GI bleed with positive occult blood in stool. Colonoscopy at this time is not possible. We'll transfuse as needed. Hgb 01/05 8.8 Renal/: Acute renal failure now on dialysis, next dialysis scheduled for Wednesday. Stopping bicarbonate drip as patient is becoming alkaline anemic. Hypophosphatemic will supplement. Dialysis catheter clogged- Alteplase administered to lines Brunner cath in place Low Phosphate- repleted Endo: No acute issues, will monitor blood sugars. Rheum: Lupus on Plaquenil, will stop as thrombocytopenia is a secondary adverse reaction to Plaquenil. GI: Nothing by mouth, Peptamen at goal. ID: Septic shock, Initial UTI with Escherichia coli in urine. Diffuse bilateral pneumonia Continue cefepime, azithromycin, micafungin and vanco DVT proph - held with possible current bleed, SCDs GI proph - Protonix Palliative Care- Attempted to reach son regarding code status. Discussed briefly with son today however he would like continued medical intervention at this time time. Code status - full code <[email or web address] S - Last Filed: 01/05/17 17:47> CCU Objective - Vital Signs / Intake & Output Vital Signs (Last 4 hours): Vital Signs Temp Pulse Pulse Resp BP BP Pulse Ox 01/05/17 17:27 92 H 20 111/64 01/05/17 17:26 92 H 20 111/64 01/05/17 17:00 89 20 118/75 69 L 01/05/17 16:48 100 H 20 99/17 L 76 L 01/05/17 16:20 108 H 36 H 92 L 01/05/17 16:12 109 H 36 H 110/78 90 L 01/05/17 16:00 99.5 F 109 H 38 H 87 L 01/05/17 15:57 110 H 37 H 115/83 93 L 01/05/17 15:52 111 H 38 H 90 L 01/05/17 15:43 113 H 38 H 113/77 69 L 01/05/17 15:40 108 H 37 H 131/88 81 L 01/05/17 15:34 108 H 33 H 69/19 L 84 L 01/05/17 15:29 109 H 36 H 183/143 H 83 L 01/05/17 15:27 109 H 36 H 159/128 H 90 L 01/05/17 15:12 110 H 38 H 109/69 83 L 01/05/17 15:00 107 H 38 H 98 01/05/17 14:56 108 H 38 H 116/87 91 L 01/05/17 14:50 98.4 F 95 H 39 H 116/87 99 01/05/17 14:41 106 H 36 H 119/84 99 01/05/17 14:30 97.8 F 109 H 109 H 35 H 107/83 107/83 81 L 01/05/17 14:26 109 H 37 H 109/83 75 L 01/05/17 14:14 109 H 34 H 107/83 84 L 01/05/17 14:10 108 H 38 H 90 L 01/05/17 14:00 104 H 29 H 91 L Intake and Output (Last 8hrs): Intake & Output 01/05/17 01/05/17 01/05/17 06:59 14:59 22:59 Intake Total 690.0 1176.8 360.6 Output Total 50 25 0 Balance 640.0 1151.8 360.6 Weight 149 lb 11.102 oz Intake: IV 0 Intake, IV Amount 690.0 976.8 320.6 Right Proximal Port 19.2 19.2 4.8 Internal Jugular Right Medial Port 100 502 200 Internal Jugular Right Distal Port 233.0 132.8 33.2 Internal Jugular Right Distal Port 337.8 322.8 82.6 Tube Feeding 170 40 Other 30 Output: Urine 50 25 0 Urethral ([place]runner) 50 25 0 Other: # Bowel Movements 0 0 - Medications Active Medications: Active Medications Generic Name Dose Route Start Last Admin Trade Name Felisha PRN Reason Stop Dose Admin Acetaminophen 650 mg 01/05/17 02:31 01/05/17 11:14 Tylenol 650mg/20.3ml Solution Ud PO 650 mg Q4 PRN Administration fever 101 & above Emollient Ointment 5 gm 12/27/16 21:16 01/04/17 05:49 Vaseline Oint TOP 5 gm QID PRN Administration Azithromycin 500 mg/ Sodium 250 mls @ 250 mls/hr 12/23/16 10:00 01/05/17 12:26 Chloride IVPB 250 mls/hr DAILY LINN Administration Micafungin Sodium 100 mg/ 100 mls @ 100 mls/hr 01/01/17 16:30 01/05/17 16:01 Sodium Chloride IV 100 mls/hr Q24H LINN Administration Norepinephrine Bitartrate 8 mg 258 mls @ 38.7 mls/hr 01/02/17 23:30 01/05/17 17 :26 / Sodium Chloride IV 41.3 mls/hr .Q6H40M PRN Administration TITRATE PER MD ORDER Protocol 20 MCG/MIN Dexmedetomidine HCl 200 mcg/ 50 mls @ 3.25 mls/hr 01/03/17 09:58 01/03/17 13:00 Sodium Chloride IVPB 0 mcg/kg/hr TITR PRN Titration Agitation Protocol 0.2 MCG/KG/HR Cefepime HCl 100 mls @ 200 mls/hr 01/03/17 10:30 01/05/17 15:08 Maxipime Iv 2 Gm Premix IVPB 01/08/17 10:31 200 mls/hr Q24H LINN Administration Vasopressin 40 units/ Sodium 40 mls @ 0.6 mls/hr 01/03/17 16:15 01/05/17 17:27 Chloride IV 2.4 mls/hr .Q24H LINN Administration Protocol 0.01 UNITS/MIN Vancomycin/Sodium Chloride 200 mls @ 133.333 mls/hr 01/04/17 13:00 01/04/17 18: 34 Vancocin IVPB 133.333 mls/hr MWF LINN Administration Amiodarone HCl 900 mg/ 500 mls @ 16.66 mls/hr 01/05/17 04:04 01/05/17 05:05 Dextrose IV 01/06/17 04:03 16.66 mls/hr .Q24H ONE Administration Protocol 0.5 MG/MIN Cisatracurium Besylate 100 mg/ 250 mls @ 30.55 mls/hr 01/05/17 16:15 01/05/17 16:57 Dextrose IV 2 mcg/kg/min .Q8H11M LINN Titration Protocol 3 MCG/KG/MIN Sodium Bicarbonate 100 meq/ 1,100 mls @ 60 mls/hr 01/05/17 17:45 Sodium Chloride IV .[id number] LINN Lorazepam 1 mg 01/01/17 20:56 01/05/17 15:20 Ativan IVP 1 mg Q3H PRN Administration Anxiety Nystatin 1 applic 01/01/17 10:15 01/05/17 09:45 Nystop Topical Powder TOP 1 appl BID LINN Administration Pantoprazole Sodium 40 mg 12/30/16 10:00 01/05/17 09:44 Protonix Inj IVP 40 mg DAILY LINN Administration - Patient Studies Lab Studies: Microbiology Studies 12/27/16 08:22 Mycobacterial Culture - Preliminary Other: Please Indicate Lab Studies 01/05/17 01/05/17 01/05/17 Range/Units 17:30 15:45 11:41 WBC (4.8-10.8) K/uL RBC (3.80-5.20) Mil/uL Hgb (11.0-16.0) g/dL Hct (34.0-47.0) % MCV (81.0-99.0) fL MCH (27.0-31.0) pg MCHC (33.0-37.0) g/dL RDW (11.5-14.5) % Plt Count (130-400) K/uL MPV (7.2-11.7) fL Neut % (Auto) (50.0-75.0) % Lymph % (Auto) (20.0-40.0) % Sully % (Auto) (0.0-10.0) % Eos % (Auto) (0.0-4.0) % Baso % (Auto) (0.0-2.0) % Neut # (1.8-7.0) K/uL Lymph # (1.0-4.3) K/uL Sully # (0.0-0.8) K/uL Eos # (0.0-0.7) K/uL Baso # (0.0-0.2) K/uL Neutrophils % (Manual) (50-75) % Band Neutrophils % (0-2) % Lymphocytes % (Manual) (20-40) % Monocytes % (Manual) (0-10) % Metamyelocytes % (0-0) % Nucleated RBC % (0-0) % Platelet Estimate (NORMAL) Anisocytosis (manual) Macrocytosis (manual) Target Cells Puncture Site Rra Rra pCO2 60 H 43 (35-45) mm/Hg pO2 46 L 69 L (80-100) mm/Hg HCO3 11.7 L 19.2 L (21-28) mmol/L ABG pH 6.99 L* 7.26 L (7.35-7.45) ABG Total CO2 16.3 L 20.6 L (22-28) mmol/L ABG O2 Saturation 73.7 L 97.0 (95-98) % ABG Base Excess -16.4 L -7.3 L (-2.0-3.0) mmol/L ABG Hemoglobin 9.1 L 9.0 L (11.7-17.4) g/dL ABG Carboxyhemoglobin 2.4 H 2.7 H (0.5-1.5) % POC ABG HHb (Measured) 25.4 H 2.9 (0.0-5.0) % ABG Methemoglobin 0.9 0.8 (0.0-3.0) % Billy Test Pos Pos A-a O2 Difference 592.0 590.0 mm/Hg Respiratory Index 12.9 8.6 Hgb O2 Saturation 71.2 L 93.7 L (95.0-98.0) % Mechanical Rate 20 20 FiO2 100.0 100.0 % Tidal Volume 500 500 PEEP 5 5 Crit Value Called To Dr bui Crit Value Called By Tigre perkins Crit Value Read Back Y Blood Gas Notified Time 1740 Sodium (132-148) mmol/L Potassium (3.6-5.2) mmol/L Chloride (98-107) mmol/L Carbon Dioxide (22-30) mmol/L Anion Gap (10-20) BUN (7-17) mg/dL Creatinine (0.7-1.2) MG/DL Est GFR ( Amer) Est GFR (Non-Af Amer) POC Glucose (mg/dL) 168 H (65-110) mg/dL Random Glucose (65-105) mg/dL Calcium (8.6-10.4) mg/dl Phosphorus (2.5-4.5) mg/dL Magnesium (1.6-2.3) mg/dL Total Bilirubin (0.2-1.3) mg/dL AST (14-36) U/L ALT (9-52) U/L Alkaline Phosphatase (38-126) U/L CK-MB (Mass) (0.0-3.38) ng/mL Troponin I (0.00-0.120) ng/mL Total Protein (6.3-8.3) g/dL Albumin (3.5-5.0) g/dL Globulin (2.2-3.9) gm/dL Albumin/Globulin Ratio (1.0-2.1) 01/05/17 01/05/17 01/05/17 Range/Units 10:05 07:20 06:30 WBC 22.7 H (4.8-10.8) K/uL RBC 2.85 L (3.80-5.20) Mil/uL Hgb 8.8 L (11.0-16.0) g/dL Hct 28.5 L (34.0-47.0) % MCV 99.9 H D (81.0-99.0) fL MCH 30.9 (27.0-31.0) pg MCHC 31.0 L (33.0-37.0) g/dL RDW 21.3 H (11.5-14.5) % Plt Count 59 L (130-400) K/uL MPV 11.4 (7.2-11.7) fL Neut % (Auto) 84.9 H (50.0-75.0) % Lymph % (Auto) 8.9 L (20.0-40.0) % Sully % (Auto) 5.4 (0.0-10.0) % Eos % (Auto) 0.6 (0.0-4.0) % Baso % (Auto) 0.2 (0.0-2.0) % Neut # 19.2 H (1.8-7.0) K/uL Lymph # 2.0 (1.0-4.3) K/uL Sully # 1.2 H (0.0-0.8) K/uL Eos # 0.1 (0.0-0.7) K/uL Baso # 0.1 (0.0-0.2) K/uL Neutrophils % (Manual) 83 H (50-75) % Band Neutrophils % 6 H (0-2) % Lymphocytes % (Manual) 5 L (20-40) % Monocytes % (Manual) 5 (0-10) % Metamyelocytes % 1 H (0-0) % Nucleated RBC % 1 H (0-0) % Platelet Estimate Decreased L (NORMAL) Anisocytosis (manual) Moderate Macrocytosis (manual) Slight Target Cells Slight Puncture Site pCO2 (35-45) mm/Hg pO2 (80-100) mm/Hg HCO3 (21-28) mmol/L ABG pH (7.35-7.45) ABG Total CO2 (22-28) mmol/L ABG O2 Saturation (95-98) % ABG Base Excess (-2.0-3.0) mmol/L ABG Hemoglobin (11.7-17.4) g/dL ABG Carboxyhemoglobin (0.5-1.5) % POC ABG HHb (Measured) (0.0-5.0) % ABG Methemoglobin (0.0-3.0) % Billy Test A-a O2 Difference mm/Hg Respiratory Index Hgb O2 Saturation (95.0-98.0) % Mechanical Rate FiO2 % Tidal Volume PEEP Crit Value Called To Crit Value Called By Crit Value Read Back Blood Gas Notified Time Sodium 134 (132-148) mmol/L Potassium 3.8 (3.6-5.2) mmol/L Chloride 95 L (98-107) mmol/L Carbon Dioxide 23 (22-30) mmol/L Anion Gap 20 (10-20) BUN 21 H (7-17) mg/dL Creatinine 2.2 H (0.7-1.2) MG/DL Est GFR ( Amer) 28 Est GFR (Non-Af Amer) 23 POC Glucose (mg/dL) 169 H 175 H (65-110) mg/dL Random Glucose 116 H (65-105) mg/dL Calcium 7.0 L (8.6-10.4) mg/dl Phosphorus 2.0 L (2.5-4.5) mg/dL Magnesium 2.0 (1.6-2.3) mg/dL Total Bilirubin 5.9 H (0.2-1.3) mg/dL AST 97 H (14-36) U/L ALT 69 H (9-52) U/L Alkaline Phosphatase 161 H (38-126) U/L CK-MB (Mass) (0.0-3.38) ng/mL Troponin I (0.00-0.120) ng/mL Total Protein 5.2 L (6.3-8.3) g/dL Albumin 2.0 L (3.5-5.0) g/dL Globulin 3.1 (2.2-3.9) gm/dL Albumin/Globulin Ratio 0.6 L (1.0-2.1) 01/05/17 01/05/17 01/05/17 Range/Units 06:29 05:12 04:48 WBC (4.8-10.8) K/uL RBC (3.80-5.20) Mil/uL Hgb (11.0-16.0) g/dL Hct (34.0-47.0) % MCV (81.0-99.0) fL MCH (27.0-31.0) pg MCHC (33.0-37.0) g/dL RDW (11.5-14.5) % Plt Count (130-400) K/uL MPV (7.2-11.7) fL Neut % (Auto) (50.0-75.0) % Lymph % (Auto) (20.0-40.0) % Sully % (Auto) (0.0-10.0) % Eos % (Auto) (0.0-4.0) % Baso % (Auto) (0.0-2.0) % Neut # (1.8-7.0) K/uL Lymph # (1.0-4.3) K/uL Sully # (0.0-0.8) K/uL Eos # (0.0-0.7) K/uL Baso # (0.0-0.2) K/uL Neutrophils % (Manual) (50-75) % Band Neutrophils % (0-2) % Lymphocytes % (Manual) (20-40) % Monocytes % (Manual) (0-10) % Metamyelocytes % (0-0) % Nucleated RBC % (0-0) % Platelet Estimate (NORMAL) Anisocytosis (manual) Macrocytosis (manual) Target Cells Puncture Site Rr pCO2 36 (35-45) mm/Hg pO2 78 L (80-100) mm/Hg HCO3 24.8 (21-28) mmol/L ABG pH 7.43 (7.35-7.45) ABG Total CO2 25.0 (22-28) mmol/L ABG O2 Saturation 98.5 H (95-98) % ABG Base Excess -0.2 (-2.0-3.0) mmol/L ABG Hemoglobin 9.1 L (11.7-17.4) g/dL ABG Carboxyhemoglobin 1.9 H (0.5-1.5) % POC ABG HHb (Measured) 1.5 (0.0-5.0) % ABG Methemoglobin 1.1 (0.0-3.0) % Billy Test Pos A-a O2 Difference 376.0 mm/Hg Respiratory Index 4.8 Hgb O2 Saturation 95.5 (95.0-98.0) % Mechanical Rate 16 FiO2 70.0 % Tidal Volume 500 PEEP 5 Crit Value Called To Crit Value Called By Crit Value Read Back Blood Gas Notified Time Sodium (132-148) mmol/L Potassium (3.6-5.2) mmol/L Chloride (98-107) mmol/L Carbon Dioxide (22-30) mmol/L Anion Gap (10-20) BUN (7-17) mg/dL Creatinine (0.7-1.2) MG/DL Est GFR ( Amer) Est GFR (Non-Af Amer) POC Glucose (mg/dL) 120 H 120 H (65-110) mg/dL Random Glucose (65-105) mg/dL Calcium (8.6-10.4) mg/dl Phosphorus (2.5-4.5) mg/dL Magnesium (1.6-2.3) mg/dL Total Bilirubin (0.2-1.3) mg/dL AST (14-36) U/L ALT (9-52) U/L Alkaline Phosphatase (38-126) U/L CK-MB (Mass) (0.0-3.38) ng/mL Troponin I (0.00-0.120) ng/mL Total Protein (6.3-8.3) g/dL Albumin (3.5-5.0) g/dL Globulin (2.2-3.9) gm/dL Albumin/Globulin Ratio (1.0-2.1) 01/05/17 01/04/17 01/04/17 Range/Units 02:05 23:27 23:15 WBC (4.8-10.8) K/uL RBC (3.80-5.20) Mil/uL Hgb (11.0-16.0) g/dL Hct (34.0-47.0) % MCV (81.0-99.0) fL MCH (27.0-31.0) pg MCHC (33.0-37.0) g/dL RDW (11.5-14.5) % Plt Count (130-400) K/uL MPV (7.2-11.7) fL Neut % (Auto) (50.0-75.0) % Lymph % (Auto) (20.0-40.0) % Sully % (Auto) (0.0-10.0) % Eos % (Auto) (0.0-4.0) % Baso % (Auto) (0.0-2.0) % Neut # (1.8-7.0) K/uL Lymph # (1.0-4.3) K/uL Sully # (0.0-0.8) K/uL Eos # (0.0-0.7) K/uL Baso # (0.0-0.2) K/uL Neutrophils % (Manual) (50-75) % Band Neutrophils % (0-2) % Lymphocytes % (Manual) (20-40) % Monocytes % (Manual) (0-10) % Metamyelocytes % (0-0) % Nucleated RBC % (0-0) % Platelet Estimate (NORMAL) Anisocytosis (manual) Macrocytosis (manual) Target Cells Puncture Site pCO2 (35-45) mm/Hg pO2 (80-100) mm/Hg HCO3 (21-28) mmol/L ABG pH (7.35-7.45) ABG Total CO2 (22-28) mmol/L ABG O2 Saturation (95-98) % ABG Base Excess (-2.0-3.0) mmol/L ABG Hemoglobin (11.7-17.4) g/dL ABG Carboxyhemoglobin (0.5-1.5) % POC ABG HHb (Measured) (0.0-5.0) % ABG Methemoglobin (0.0-3.0) % Billy Test A-a O2 Difference mm/Hg Respiratory Index Hgb O2 Saturation (95.0-98.0) % Mechanical Rate FiO2 % Tidal Volume PEEP Crit Value Called To Crit Value Called By Crit Value Read Back Blood Gas Notified Time Sodium 134 (132-148) mmol/L Potassium 3.8 (3.6-5.2) mmol/L Chloride 98 (98-107) mmol/L Carbon Dioxide 24 (22-30) mmol/L Anion Gap 15 (10-20) BUN 19 H (7-17) mg/dL Creatinine 2.2 H (0.7-1.2) MG/DL Est GFR ( Amer) 28 Est GFR (Non-Af Amer) 23 POC Glucose (mg/dL) 92 104 (65-110) mg/dL Random Glucose 91 (65-105) mg/dL Calcium 7.3 L (8.6-10.4) mg/dl Phosphorus 1.8 L (2.5-4.5) mg/dL Magnesium 1.9 (1.6-2.3) mg/dL Total Bilirubin 5.5 H (0.2-1.3) mg/dL AST 87 H (14-36) U/L ALT 78 H (9-52) U/L Alkaline Phosphatase 159 H (38-126) U/L CK-MB (Mass) 1.20 (0.0-3.38) ng/mL Troponin I 0.2280 H* (0.00-0.120) ng/mL Total Protein 5.2 L (6.3-8.3) g/dL Albumin 1.9 L (3.5-5.0) g/dL Globulin 3.3 (2.2-3.9) gm/dL Albumin/Globulin Ratio 0.6 L (1.0-2.1) 01/04/17 01/04/17 01/04/17 Range/Units 22:22 21:08 19:52 WBC (4.8-10.8) K/uL RBC (3.80-5.20) Mil/uL Hgb (11.0-16.0) g/dL Hct (34.0-47.0) % MCV (81.0-99.0) fL MCH (27.0-31.0) pg MCHC (33.0-37.0) g/dL RDW (11.5-14.5) % Plt Count (130-400) K/uL MPV (7.2-11.7) fL Neut % (Auto) (50.0-75.0) % Lymph % (Auto) (20.0-40.0) % Sully % (Auto) (0.0-10.0) % Eos % (Auto) (0.0-4.0) % Baso % (Auto) (0.0-2.0) % Neut # (1.8-7.0) K/uL Lymph # (1.0-4.3) K/uL Sully # (0.0-0.8) K/uL Eos # (0.0-0.7) K/uL Baso # (0.0-0.2) K/uL Neutrophils % (Manual) (50-75) % Band Neutrophils % (0-2) % Lymphocytes % (Manual) (20-40) % Monocytes % (Manual) (0-10) % Metamyelocytes % (0-0) % Nucleated RBC % (0-0) % Platelet Estimate (NORMAL) Anisocytosis (manual) Macrocytosis (manual) Target Cells Puncture Site pCO2 (35-45) mm/Hg pO2 (80-100) mm/Hg HCO3 (21-28) mmol/L ABG pH (7.35-7.45) ABG Total CO2 (22-28) mmol/L ABG O2 Saturation (95-98) % ABG Base Excess (-2.0-3.0) mmol/L ABG Hemoglobin (11.7-17.4) g/dL ABG Carboxyhemoglobin (0.5-1.5) % POC ABG HHb (Measured) (0.0-5.0) % ABG Methemoglobin (0.0-3.0) % Billy Test A-a O2 Difference mm/Hg Respiratory Index Hgb O2 Saturation (95.0-98.0) % Mechanical Rate FiO2 % Tidal Volume PEEP Crit Value Called To Crit Value Called By Crit Value Read Back Blood Gas Notified Time Sodium (132-148) mmol/L Potassium (3.6-5.2) mmol/L Chloride (98-107) mmol/L Carbon Dioxide (22-30) mmol/L Anion Gap (10-20) BUN (7-17) mg/dL Creatinine (0.7-1.2) MG/DL Est GFR ( Amer) Est GFR (Non-Af Amer) POC Glucose (mg/dL) 90 108 104 (65-110) mg/dL Random Glucose (65-105) mg/dL Calcium (8.6-10.4) mg/dl Phosphorus (2.5-4.5) mg/dL Magnesium (1.6-2.3) mg/dL Total Bilirubin (0.2-1.3) mg/dL AST (14-36) U/L ALT (9-52) U/L Alkaline Phosphatase (38-126) U/L CK-MB (Mass) (0.0-3.38) ng/mL Troponin I (0.00-0.120) ng/mL Total Protein (6.3-8.3) g/dL Albumin (3.5-5.0) g/dL Globulin (2.2-3.9) gm/dL Albumin/Globulin Ratio (1.0-2.1) 01/04/17 Range/Units 17:45 WBC (4.8-10.8) K/uL RBC (3.80-5.20) Mil/uL Hgb (11.0-16.0) g/dL Hct (34.0-47.0) % MCV (81.0-99.0) fL MCH (27.0-31.0) pg MCHC (33.0-37.0) g/dL RDW (11.5-14.5) % Plt Count (130-400) K/uL MPV (7.2-11.7) fL Neut % (Auto) (50.0-75.0) % Lymph % (Auto) (20.0-40.0) % Sully % (Auto) (0.0-10.0) % Eos % (Auto) (0.0-4.0) % Baso % (Auto) (0.0-2.0) % Neut # (1.8-7.0) K/uL Lymph # (1.0-4.3) K/uL Sully # (0.0-0.8) K/uL Eos # (0.0-0.7) K/uL Baso # (0.0-0.2) K/uL Neutrophils % (Manual) (50-75) % Band Neutrophils % (0-2) % Lymphocytes % (Manual) (20-40) % Monocytes % (Manual) (0-10) % Metamyelocytes % (0-0) % Nucleated RBC % (0-0) % Platelet Estimate (NORMAL) Anisocytosis (manual) Macrocytosis (manual) Target Cells Puncture Site pCO2 (35-45) mm/Hg pO2 (80-100) mm/Hg HCO3 (21-28) mmol/L ABG pH (7.35-7.45) ABG Total CO2 (22-28) mmol/L ABG O2 Saturation (95-98) % ABG Base Excess (-2.0-3.0) mmol/L ABG Hemoglobin (11.7-17.4) g/dL ABG Carboxyhemoglobin (0.5-1.5) % POC ABG HHb (Measured) (0.0-5.0) % ABG Methemoglobin (0.0-3.0) % Billy Test A-a O2 Difference mm/Hg Respiratory Index Hgb O2 Saturation (95.0-98.0) % Mechanical Rate FiO2 % Tidal Volume PEEP Crit Value Called To Crit Value Called By Crit Value Read Back Blood Gas Notified Time Sodium (132-148) mmol/L Potassium (3.6-5.2) mmol/L Chloride (98-107) mmol/L Carbon Dioxide (22-30) mmol/L Anion Gap (10-20) BUN (7-17) mg/dL Creatinine (0.7-1.2) MG/DL Est GFR ( Amer) Est GFR (Non-Af Amer) POC Glucose (mg/dL) 88 (65-110) mg/dL Random Glucose (65-105) mg/dL Calcium (8.6-10.4) mg/dl Phosphorus (2.5-4.5) mg/dL Magnesium (1.6-2.3) mg/dL Total Bilirubin (0.2-1.3) mg/dL AST (14-36) U/L ALT (9-52) U/L Alkaline Phosphatase (38-126) U/L CK-MB (Mass) (0.0-3.38) ng/mL Troponin I (0.00-0.120) ng/mL Total Protein (6.3-8.3) g/dL Albumin (3.5-5.0) g/dL Globulin (2.2-3.9) gm/dL Albumin/Globulin Ratio (1.0-2.1) Laboratory Results - last 24 hr 01/04/17 01/04/17 01/04/17 17:45 19:52 21:08 WBC RBC Hgb Hct MCV MCH MCHC RDW Plt Count MPV Neut % (Auto) Lymph % (Auto) Sully % (Auto) Eos % (Auto) Baso % (Auto) Neut # Lymph # Sully # Eos # Baso # Neutrophils % (Manual) Band Neutrophils % Lymphocytes % (Manual) Monocytes % (Manual) Metamyelocytes % Nucleated RBC % Platelet Estimate Anisocytosis (manual) Macrocytosis (manual) Target Cells Puncture Site pCO2 pO2 HCO3 ABG pH ABG Total CO2 ABG O2 Saturation ABG Base Excess ABG Hemoglobin ABG Carboxyhemoglobin POC ABG HHb (Measured) ABG Methemoglobin Billy Test A-a O2 Difference Respiratory Index Hgb O2 Saturation Mechanical Rate FiO2 Tidal Volume PEEP Crit Value Called To Crit Value Called By Crit Value Read Back Blood Gas Notified Time Sodium Potassium Chloride Carbon Dioxide Anion Gap BUN Creatinine Est GFR ( Amer) Est GFR (Non-Af Amer) POC Glucose (mg/dL) 88 104 108 Random Glucose Calcium Phosphorus Magnesium Total Bilirubin AST ALT Alkaline Phosphatase CK-MB (Mass) Troponin I Total Protein Albumin Globulin Albumin/Globulin Ratio 01/04/17 01/04/17 01/04/17 22:22 23:15 23:27 WBC RBC Hgb Hct MCV MCH MCHC RDW Plt Count MPV Neut % (Auto) Lymph % (Auto) Sully % (Auto) Eos % (Auto) Baso % (Auto) Neut # Lymph # Sully # Eos # Baso # Neutrophils % (Manual) Band Neutrophils % Lymphocytes % (Manual) Monocytes % (Manual) Metamyelocytes % Nucleated RBC % Platelet Estimate Anisocytosis (manual) Macrocytosis (manual) Target Cells Puncture Site pCO2 pO2 HCO3 ABG pH ABG Total CO2 ABG O2 Saturation ABG Base Excess ABG Hemoglobin ABG Carboxyhemoglobin POC ABG HHb (Measured) ABG Methemoglobin Billy Test A-a O2 Difference Respiratory Index Hgb O2 Saturation Mechanical Rate FiO2 Tidal Volume PEEP Crit Value Called To Crit Value Called By Crit Value Read Back Blood Gas Notified Time Sodium 134 Potassium 3.8 Chloride 98 Carbon Dioxide 24 Anion Gap 15 BUN 19 H Creatinine 2.2 H Est GFR ( Amer) 28 Est GFR (Non-Af Amer) 23 POC Glucose (mg/dL) 90 104 Random Glucose 91 Calcium 7.3 L Phosphorus 1.8 L Magnesium 1.9 Total Bilirubin 5.5 H AST 87 H ALT 78 H Alkaline Phosphatase 159 H CK-MB (Mass) 1.20 Troponin I 0.2280 H* Total Protein 5.2 L Albumin 1.9 L Globulin 3.3 Albumin/Globulin Ratio 0.6 L 01/05/17 01/05/17 01/05/17 02:05 04:48 05:12 WBC RBC Hgb Hct MCV MCH MCHC RDW Plt Count MPV Neut % (Auto) Lymph % (Auto) Sully % (Auto) Eos % (Auto) Baso % (Auto) Neut # Lymph # Sully # Eos # Baso # Neutrophils % (Manual) Band Neutrophils % Lymphocytes % (Manual) Monocytes % (Manual) Metamyelocytes % Nucleated RBC % Platelet Estimate Anisocytosis (manual) Macrocytosis (manual) Target Cells Puncture Site Rr pCO2 36 pO2 78 L HCO3 24.8 ABG pH 7.43 ABG Total CO2 25.0 ABG O2 Saturation 98.5 H ABG Base Excess -0.2 ABG Hemoglobin 9.1 L ABG Carboxyhemoglobin 1.9 H POC ABG HHb (Measured) 1.5 ABG Methemoglobin 1.1 Billy Test Pos A-a O2 Difference 376.0 Respiratory Index 4.8 Hgb O2 Saturation 95.5 Mechanical Rate 16 FiO2 70.0 Tidal Volume 500 PEEP 5 Crit Value Called To Crit Value Called By Crit Value Read Back Blood Gas Notified Time Sodium Potassium Chloride Carbon Dioxide Anion Gap BUN Creatinine Est GFR ( Amer) Est GFR (Non-Af Amer) POC Glucose (mg/dL) 92 120 H Random Glucose Calcium Phosphorus Magnesium Total Bilirubin AST ALT Alkaline Phosphatase CK-MB (Mass) Troponin I Total Protein Albumin Globulin Albumin/Globulin Ratio 01/05/17 01/05/17 01/05/17 06:29 06:30 07:20 WBC 22.7 H RBC 2.85 L Hgb 8.8 L Hct 28.5 L MCV 99.9 H D MCH 30.9 MCHC 31.0 L RDW 21.3 H Plt Count 59 L MPV 11.4 Neut % (Auto) 84.9 H Lymph % (Auto) 8.9 L Sully % (Auto) 5.4 Eos % (Auto) 0.6 Baso % (Auto) 0.2 Neut # 19.2 H Lymph # 2.0 Sully # 1.2 H Eos # 0.1 Baso # 0.1 Neutrophils % (Manual) 83 H Band Neutrophils % 6 H Lymphocytes % (Manual) 5 L Monocytes % (Manual) 5 Metamyelocytes % 1 H Nucleated RBC % 1 H Platelet Estimate Decreased L Anisocytosis (manual) Moderate Macrocytosis (manual) Slight Target Cells Slight Puncture Site pCO2 pO2 HCO3 ABG pH ABG Total CO2 ABG O2 Saturation ABG Base Excess ABG Hemoglobin ABG Carboxyhemoglobin POC ABG HHb (Measured) ABG Methemoglobin Billy Test A-a O2 Difference Respiratory Index Hgb O2 Saturation Mechanical Rate FiO2 Tidal Volume PEEP Crit Value Called To Crit Value Called By Crit Value Read Back Blood Gas Notified Time Sodium 134 Potassium 3.8 Chloride 95 L Carbon Dioxide 23 Anion Gap 20 BUN 21 H Creatinine 2.2 H Est GFR ( Amer) 28 Est GFR (Non-Af Amer) 23 POC Glucose (mg/dL) 120 H 175 H Random Glucose 116 H Calcium 7.0 L Phosphorus 2.0 L Magnesium 2.0 Total Bilirubin 5.9 H AST 97 H ALT 69 H Alkaline Phosphatase 161 H CK-MB (Mass) Troponin I Total Protein 5.2 L Albumin 2.0 L Globulin 3.1 Albumin/Globulin Ratio 0.6 L 01/05/17 01/05/17 01/05/17 10:05 11:41 15:45 WBC RBC Hgb Hct MCV MCH MCHC RDW Plt Count MPV Neut % (Auto) Lymph % (Auto) Sully % (Auto) Eos % (Auto) Baso % (Auto) Neut # Lymph # Sully # Eos # Baso # Neutrophils % (Manual) Band Neutrophils % Lymphocytes % (Manual) Monocytes % (Manual) Metamyelocytes % Nucleated RBC % Platelet Estimate Anisocytosis (manual) Macrocytosis (manual) Target Cells Puncture Site Rra pCO2 43 pO2 69 L HCO3 19.2 L ABG pH 7.26 L ABG Total CO2 20.6 L ABG O2 Saturation 97.0 ABG Base Excess -7.3 L ABG Hemoglobin 9.0 L ABG Carboxyhemoglobin 2.7 H POC ABG HHb (Measured) 2.9 ABG Methemoglobin 0.8 Billy Test Pos A-a O2 Difference 590.0 Respiratory Index 8.6 Hgb O2 Saturation 93.7 L Mechanical Rate 20 FiO2 100.0 Tidal Volume 500 PEEP 5 Crit Value Called To Crit Value Called By Crit Value Read Back Blood Gas Notified Time Sodium Potassium Chloride Carbon Dioxide Anion Gap BUN Creatinine Est GFR ( Amer) Est GFR (Non-Af Amer) POC Glucose (mg/dL) 169 H 168 H Random Glucose Calcium Phosphorus Magnesium Total Bilirubin AST ALT Alkaline Phosphatase CK-MB (Mass) Troponin I Total Protein Albumin Globulin Albumin/Globulin Ratio 01/05/17 17:30 WBC RBC Hgb Hct MCV MCH MCHC RDW Plt Count MPV Neut % (Auto) Lymph % (Auto) Sully % (Auto) Eos % (Auto) Baso % (Auto) Neut # Lymph # Sully # Eos # Baso # Neutrophils % (Manual) Band Neutrophils % Lymphocytes % (Manual) Monocytes % (Manual) Metamyelocytes % Nucleated RBC % Platelet Estimate Anisocytosis (manual) Macrocytosis (manual) Target Cells Puncture Site Rra pCO2 60 H pO2 46 L HCO3 11.7 L ABG pH 6.99 L* ABG Total CO2 16.3 L ABG O2 Saturation 73.7 L ABG Base Excess -16.4 L ABG Hemoglobin 9.1 L ABG Carboxyhemoglobin 2.4 H POC ABG HHb (Measured) 25.4 H ABG Methemoglobin 0.9 Billy Test Pos A-a O2 Difference 592.0 Respiratory Index 12.9 Hgb O2 Saturation 71.2 L Mechanical Rate 20 FiO2 100.0 Tidal Volume 500 PEEP 5 Crit Value Called To Dr bui Crit Value Called By Tigre perkins Crit Value Read Back Y Blood Gas Notified Time 1740 Sodium Potassium Chloride Carbon Dioxide Anion Gap BUN Creatinine Est GFR ( Amer) Est GFR (Non-Af Amer) POC Glucose (mg/dL) Random Glucose Calcium Phosphorus Magnesium Total Bilirubin AST ALT Alkaline Phosphatase CK-MB (Mass) Troponin I Total Protein Albumin Globulin Albumin/Globulin Ratio Assessment/Plan (1) Respiratory failure requiring intubation Current Visit: Yes Status: Acute Comment: Continue ventilatory support Worsening bilateral infiltrate noted On antibiotics per ID Follow-up culture and sensitivity Reduce FiO2 as tolerated and increase PEEP (2) VERONICA (acute kidney injury) Current Visit: Yes Status: Acute Comment: Continue hemodialysis (3) CHF (congestive heart failure) Current Visit: Yes Status: Acute Comment: On MILRINONE DRIP (4) Pneumonia Current Visit: Yes Status: Acute (5) Septic shock Current Visit: Yes Status: Acute Attending/Attestation - Attestation I have personally seen and examined this patient.: Yes I have fully participated in the care of the patient.: Yes I have reviewed all pertinent clinical information: Yes Notes (Text): 01/05/17 17:45 Patient seen and examined in the intensive care unit. Case discussed with house staff in the morning rounds. Remains intubated on ventilatory support requiring high FiO2 acidotic breathing Remains hypotensive on high-dose pressors Started on bicarbonate drip for extreme metabolic acidosis Hemodialysis canceled because of hypotension Continue antibiotics as per ID Started on nimbex for tachypnea
[2017-01-05 08:41] LABS: METAMYELOCYTE 1 % (0-0); NEUTROPHIL 83 % (50-75); NUCLEATED RED BLOOD CELL 1 % (0-0); TOTAL CELLS COUNTED 100
--- NOTE | 2017-01-05 10:51 | CARD ---
APPROVED REPORT EKG Measurement Heart [id number] <Conclusion> Sinus tachycardia Left axis deviation Nonspecific T wave abnormality Abnormal ECG
--- NOTE | 2017-01-05 11:43 | CP.PCM.PN ---
Subjective - Date & Time of Evaluation Date of Evaluation: 01/05/17 Time of Evaluation: 11:41 - Subjective Subjective: seen and examined febile, tachypneic catheter clotted, cathflo put in on 2 pressors anuric Objective - Vital Signs/Intake and Output Vital Signs (last 24 hours): Temp Pulse Resp BP Pulse Ox 98.3 F 100 H 27 H 123/79 97 01/05/17 08:00 01/05/17 10:00 01/05/17 10:00 01/05/17 10:01 01/05/17 10:00 Intake and Output: 01/05/17 01/05/17 06:59 18:59 Intake Total 894.7 331.2 Output Total 50 20 Balance 844.7 311.2 - Medications Medications: Current Medications Acetaminophen (Tylenol 650mg/20.3ml Solution Ud) 650 mg PO Q4 PRN PRN Reason: fever 101 & above Last Admin: 01/05/17 11:14 Dose: 650 mg Emollient Ointment (Vaseline Oint) 5 gm TOP QID PRN Last Admin: 01/04/17 05:49 Dose: 5 gm Azithromycin 500 mg/ Sodium (Chloride) 250 mls @ 250 mls/hr IVPB DAILY [facility] Last Admin: 01/04/17 10:21 Dose: 250 mls/hr Micafungin Sodium 100 mg/ (Sodium Chloride) 100 mls @ 100 mls/hr IV Q24H [facility] Last Admin: 01/04/17 18:34 Dose: 100 mls/hr Norepinephrine Bitartrate 8 mg (/ Sodium Chloride) 258 mls @ 38.7 mls/hr IV .Q6H40M PRN; Protocol; 20 MCG/MIN PRN Reason: TITRATE PER MD ORDER Last Titration: 01/05/17 11:00 Dose: 20.36 mcg/min Dexmedetomidine HCl 200 mcg/ (Sodium Chloride) 50 mls @ 3.25 mls/hr IVPB TITR PRN; Protocol; 0.2 MCG/KG/HR PRN Reason: Agitation Last Titration: 01/03/17 13:00 Dose: 0 mcg/kg/hr Cefepime HCl (Maxipime Iv 2 Gm Premix) 100 mls @ 200 mls/hr IVPB Q24H [facility] Stop: 01/08/17 10:31 Last Admin: 01/04/17 10:21 Dose: 200 mls/hr Vasopressin 40 units/ Sodium (Chloride) 40 mls @ 0.6 mls/hr IV .Q24H LINN; 0.01 UNITS/MIN PRN Reason: Protocol Last Admin: 01/04/17 18:35 Dose: 2.4 mls/hr Vancomycin/Sodium Chloride (Vancocin) 200 mls @ 133.333 mls/hr IVPB MWF LINN Last Admin: 01/04/17 18:34 Dose: 133.333 mls/hr Amiodarone HCl 900 mg/ (Dextrose) 500 mls @ 33.33 mls/hr IV .Q15H1M ONE; 1 MG/ MIN PRN Reason: Protocol Stop: 01/05/17 14:03 Last Admin: 01/04/17 23:20 Dose: 33.33 mls/hr Amiodarone HCl 900 mg/ (Dextrose) 500 mls @ 16.66 mls/hr IV .Q24H ONE; 0.5 MG/ MIN PRN Reason: Protocol Stop: 01/06/17 04:03 Last Admin: 01/05/17 05:05 Dose: 16.66 mls/hr Potassium Phosphate 15 mmole/ (Sodium Chloride) 255 mls @ 42.5 mls/hr IVPB ONCE ONE Stop: 01/05/17 14:32 Last Admin: 01/05/17 09:14 Dose: 42.5 mls/hr Lorazepam (Ativan) 1 mg IVP Q3H PRN PRN Reason: Anxiety Last Admin: 01/04/17 22:30 Dose: 1 mg Nystatin (Nystop Topical Powder) 1 applic TOP BID LINN Last Admin: 01/05/17 09:45 Dose: 1 appl Pantoprazole Sodium (Protonix Inj) 40 mg IVP DAILY [facility] Last Admin: 01/05/17 09:44 Dose: 40 mg - Labs Labs: 01/05/17 06:30 01/05/17 06:30 PT 17.7 SECONDS (9.7-12.2) H 12/30/16 10:43 INR 1.6 12/30/16 10:43 APTT 34 SECONDS (21-34) D 12/25/16 06:11 - Constitutional Appears: No Acute Distress, Chronically Ill (intubated sedated) - Head Exam Head Exam: NORMAL INSPECTION - ENT Exam Additional comments: et tube - Respiratory Exam Respiratory Exam: Decreased Breath Sounds (coarse breath sounds) - Cardiovascular Exam Cardiovascular Exam: Tachycardia, RRR - GI/Abdominal Exam GI & Abdominal Exam: Distended, Soft, Normal Bowel Sounds - Extremities Exam Extremities Exam: Pedal Edema Assessment and Plan (1) VERONICA (acute kidney injury) Status: Acute (2) CHF (congestive heart failure) Status: Acute (3) Cardiogenic shock Status: Acute (4) Dyspnea Status: Acute (5) Oliguria Status: Acute (6) Pneumonia Status: Acute - Assessment and Plan (Free Text) Assessment: -poor prognosis -attempt hd today for fluid removal -pressors and supportive care
[2017-01-05] MEDS: Azithromycin 500 MG in Sodium Chloride 0.9% 250 ML IVPB SCH (12:26)
--- NOTE | 2017-01-05 13:12 | RAD ---
HISTORY: intubated COMPARISON: 01/04/2017 FINDINGS: The endotracheal tube terminates 3 cm proximal to the isauro. The right IJV line terminates in the SVC. The nasogastric tube terminates in the stomach. LUNGS: There is stable appearance of diffuse reticular nodular opacities in both lungs. There is no focal consolidation. PLEURA: No significant pleural effusion identified, no pneumothorax apparent. CARDIOVASCULAR: There is mild cardiomegaly. There is stable position of left-sided AICD. OSSEOUS STRUCTURES: No significant abnormalities. VISUALIZED UPPER ABDOMEN: Normal. OTHER FINDINGS: None. IMPRESSION: Stable appearance of reticulonodular opacities in both lungs which may represent pulmonary fibrosis or interstitial pneumonitis/ edema.
--- NOTE | 2017-01-05 13:13 | CP.PCM.PN ---
<Eugenia Barriga - Last Filed: 01/05/17 13:35> Subjective - Date & Time of Evaluation Date of Evaluation: 01/05/17 Time of Evaluation: 13:10 - Subjective Subjective: Cardiology progress note for Dr Montelongo. Patient's still intubated, minimally responsive off of sedation. Patient is on levophed and vasopressin drip. On PRVC with fio2 of 70%, was febrile. Objective - Vital Signs/Intake and Output Vital Signs (last 24 hours): Temp Pulse Resp BP Pulse Ox 98.3 F 102 H 29 H 114/70 97 01/05/17 08:00 01/05/17 12:00 01/05/17 12:00 01/05/17 11:57 01/05/17 12:00 Intake and Output: 01/05/17 01/05/17 06:59 18:59 Intake Total 894.7 518.0 Output Total 50 25 Balance 844.7 493.0 - Medications Medications: Current Medications Acetaminophen (Tylenol 650mg/20.3ml Solution Ud) 650 mg PO Q4 PRN PRN Reason: fever 101 & above Last Admin: 01/05/17 11:14 Dose: 650 mg Emollient Ointment (Vaseline Oint) 5 gm TOP QID PRN Last Admin: 01/04/17 05:49 Dose: 5 gm Azithromycin 500 mg/ Sodium (Chloride) 250 mls @ 250 mls/hr IVPB DAILY [facility] Last Admin: 01/05/17 12:26 Dose: 250 mls/hr Micafungin Sodium 100 mg/ (Sodium Chloride) 100 mls @ 100 mls/hr IV Q24H [facility] Last Admin: 01/04/17 18:34 Dose: 100 mls/hr Norepinephrine Bitartrate 8 mg (/ Sodium Chloride) 258 mls @ 38.7 mls/hr IV .Q6H40M PRN; Protocol; 20 MCG/MIN PRN Reason: TITRATE PER MD ORDER Last Titration: 01/05/17 11:00 Dose: 20.36 mcg/min Dexmedetomidine HCl 200 mcg/ (Sodium Chloride) 50 mls @ 3.25 mls/hr IVPB TITR PRN; Protocol; 0.2 MCG/KG/HR PRN Reason: Agitation Last Titration: 01/03/17 13:00 Dose: 0 mcg/kg/hr Cefepime HCl (Maxipime Iv 2 Gm Premix) 100 mls @ 200 mls/hr IVPB Q24H LINN Stop: 01/08/17 10:31 Last Admin: 01/04/17 10:21 Dose: 200 mls/hr Vasopressin 40 units/ Sodium (Chloride) 40 mls @ 0.6 mls/hr IV .Q24H LINN; 0.01 UNITS/MIN PRN Reason: Protocol Last Admin: 01/04/17 18:35 Dose: 2.4 mls/hr Vancomycin/Sodium Chloride (Vancocin) 200 mls @ 133.333 mls/hr IVPB MWF LINN Last Admin: 01/04/17 18:34 Dose: 133.333 mls/hr Amiodarone HCl 900 mg/ (Dextrose) 500 mls @ 33.33 mls/hr IV .Q15H1M ONE; 1 MG/ MIN PRN Reason: Protocol Stop: 01/05/17 14:03 Last Admin: 01/04/17 23:20 Dose: 33.33 mls/hr Amiodarone HCl 900 mg/ (Dextrose) 500 mls @ 16.66 mls/hr IV .Q24H ONE; 0.5 MG/ MIN PRN Reason: Protocol Stop: 01/06/17 04:03 Last Admin: 01/05/17 05:05 Dose: 16.66 mls/hr Potassium Phosphate 15 mmole/ (Sodium Chloride) 255 mls @ 42.5 mls/hr IVPB ONCE ONE Stop: 01/05/17 14:32 Last Admin: 01/05/17 09:14 Dose: 42.5 mls/hr Lorazepam (Ativan) 1 mg IVP Q3H PRN PRN Reason: Anxiety Last Admin: 01/04/17 22:30 Dose: 1 mg Nystatin (Nystop Topical Powder) 1 applic TOP BID LINN Last Admin: 01/05/17 09:45 Dose: 1 appl Pantoprazole Sodium (Protonix Inj) 40 mg IVP DAILY [facility] Last Admin: 01/05/17 09:44 Dose: 40 mg - Labs Labs: 01/05/17 06:30 01/05/17 06:30 PT 17.7 SECONDS (9.7-12.2) H 12/30/16 10:43 INR 1.6 12/30/16 10:43 APTT 34 SECONDS (21-34) D 12/25/16 06:11 - Constitutional Appears: No Acute Distress, Cachectic, Chronically Ill - Head Exam Head Exam: ATRAUMATIC, NORMAL INSPECTION, NORMOCEPHALIC - Eye Exam Eye Exam: Normal appearance. absent: Scleral icterus - ENT Exam ENT Exam: Mucous Membranes Moist Additional comments: ETT and ogt in place. - Neck Exam Neck Exam: Normal Inspection - Respiratory Exam Respiratory Exam: Decreased Breath Sounds, Rhonchi. absent: Rales, Wheezes, Respiratory Distress, Stridor Additional comments: Intubated. - Cardiovascular Exam Cardiovascular Exam: Tachycardia, REGULAR RHYTHM, RRR, +S1, +S2. absent: JVD - GI/Abdominal Exam GI & Abdominal Exam: Soft, Normal Bowel Sounds. absent: Distended - Extremities Exam Extremities Exam: Pedal Edema - Neurological Exam Additional comments: Minimally responsive off of sedation. - Skin Skin Exam: Diaphoretic, Warm Assessment and Plan - Assessment and Plan (Free Text) Assessment: 61 y/o with PMH of Lupus, dilated cardiomyopathy s/p ICD, CVA with left sided residue, htn admitted with: 1) Hypoxemic respiratory failure 2nd to HAP/CHF exacerbation LVEF of 20% with mod-severe pulm htn on echo- s/p ICD interrogation 2) Septic shock- 3) Ecoli UTI 4) Transaminitis 5) VERONICA on HD 6) Thrombocytopenia 7) Anemia Plan: S/p ICD interrogation, with normal function, will need replacement due to low battery life, once medically stable. Patient is on pressors ( levophed and vasopressin) for septic shock. Patient is also on antibiotics and anti-fungal. Patient was started on amiodorone for v- tach. Patient continued to be intubated, minimally responsive off of sedation. In ICU, plan for bronchoscopy. Patient seen, examined, case discussed with Dr Montelongo. <Vaishali Montelongo - Last Filed: 01/07/17 17:37> Objective - Vital Signs/Intake and Output Vital Signs (last 24 hours): Temp Pulse Resp BP Pulse Ox 95 F L 40 L 26 H 30/0 L 52 L 01/07/17 10:20 01/07/17 11:00 01/07/17 11:00 01/07/17 10:38 01/07/17 11:00 Intake and Output: 01/07/17 01/07/17 06:59 18:59 Intake Total 3333.7 1646.9 Output Total 0 10 Balance 3333.7 1636.9 - Labs Labs: 01/07/17 06:25 01/07/17 06:25 PT 17.7 SECONDS (9.7-12.2) H 12/30/16 10:43 INR 1.6 12/30/16 10:43 APTT 34 SECONDS (21-34) D 12/25/16 06:11 Attending/Attestation - Attestation I have personally seen and examined this patient.: Yes I have fully participated in the care of the patient.: Yes I have reviewed all pertinent clinical information, including history, physical exam and plan: Yes Notes (Text): 01/07/17 17:37 pt on multiple pressor intubated minimally responsive
[2017-01-05] MEDS: Cefepime IV 2 gm in Dextrose 100 ML IVPB SCH (15:08)
[2017-01-05] MEDS ORDERED: Sodium Bicarbonate (8.4%) 50 Meq Syringe ONE (15:38)
[2017-01-05] MEDS ORDERED: Sodium Bicarbonate (8.4%) 50 Meq Syringe IVP ONE ×2 (15:39→17:38)
[2017-01-05 15:50] LABS: ABG ALLEN TEST POS; ABG MECHANICAL RATE 20; ARTERIAL BLOOD HGB O2 SAT 93.7 % (95.0-98.0); ATERIAL BLOOD GAS PEEP 5; CARBOXYHEMOGLOBIN 2.7 % (0.5-1.5); DRAW SITE RRA; HHB 2.9 % (0.0-5.0); METHEMOGLOBIN 0.8 % (0.0-3.0)
[2017-01-05] MEDS: Micafungin 100 MG in Sodium Chloride 0.9% 100 ML IV SCH (16:01)
[2017-01-05] MEDS: Cisatracurium Besylate 100 MG in Dextrose 5% In Water 240 ML IV SCH (16:34)
[2017-01-05 17:37] LABS: ABG ALLEN TEST POS; ABG MECHANICAL RATE 20; ARTERIAL BLOOD HGB O2 SAT 71.2 % (95.0-98.0); ATERIAL BLOOD GAS PEEP 5; CARBOXYHEMOGLOBIN 2.4 % (0.5-1.5); DRAW SITE RRA; HHB 25.4 % (0.0-5.0); METHEMOGLOBIN 0.9 % (0.0-3.0)
[2017-01-05 20:17] LABS: ABG ALLEN TEST POS; ABG MECHANICAL RATE 26; ARTERIAL BLOOD HGB O2 SAT 77.8 % (95.0-98.0); ATERIAL BLOOD GAS PEEP 5; CARBOXYHEMOGLOBIN 3.3 % (0.5-1.5); DRAW SITE RRA; HHB 18.5 % (0.0-5.0); METHEMOGLOBIN 0.4 % (0.0-3.0)
--- NOTE | 2017-01-05 20:59 | CP.PCM.PN ---
Subjective - Date & Time of Evaluation Date of Evaluation: 01/05/17 Time of Evaluation: 16:00 - Subjective Subjective: Patient overall doing worse; critical care team considering bronch when more stable; family (one son with whom there is some contact, no contact with other 2 children) want full measures taken. Objective - Vital Signs/Intake and Output Vital Signs (last 24 hours): Temp Pulse Resp BP Pulse Ox 99.5 F 100 H 26 H 87/57 L 69 L 01/05/17 16:00 01/05/17 19:17 01/05/17 19:17 01/05/17 19:17 01/05/17 19:17 Intake and Output: 01/05/17 01/06/17 18:59 06:59 Intake Total 1798.8 160.7 Output Total 55 0 Balance 1743.8 160.7 - Medications Medications: Current Medications Acetaminophen (Tylenol 650mg/20.3ml Solution Ud) 650 mg PO Q4 PRN PRN Reason: fever 101 & above Last Admin: 01/05/17 11:14 Dose: 650 mg Emollient Ointment (Vaseline Oint) 5 gm TOP QID PRN Last Admin: 01/04/17 05:49 Dose: 5 gm Azithromycin 500 mg/ Sodium (Chloride) 250 mls @ 250 mls/hr IVPB DAILY [facility] Last Admin: 01/05/17 12:26 Dose: 250 mls/hr Micafungin Sodium 100 mg/ (Sodium Chloride) 100 mls @ 100 mls/hr IV Q24H [facility] Last Admin: 01/05/17 16:01 Dose: 100 mls/hr Norepinephrine Bitartrate 8 mg (/ Sodium Chloride) 258 mls @ 38.7 mls/hr IV .Q6H40M PRN; Protocol; 20 MCG/MIN PRN Reason: TITRATE PER MD ORDER Last Admin: 01/05/17 17:26 Dose: 41.3 mls/hr Dexmedetomidine HCl 200 mcg/ (Sodium Chloride) 50 mls @ 3.25 mls/hr IVPB TITR PRN; Protocol; 0.2 MCG/KG/HR PRN Reason: Agitation Last Titration: 01/03/17 13:00 Dose: 0 mcg/kg/hr Cefepime HCl (Maxipime Iv 2 Gm Premix) 100 mls @ 200 mls/hr IVPB Q24H [facility] Stop: 01/08/17 10:31 Last Admin: 01/05/17 15:08 Dose: 200 mls/hr Vasopressin 40 units/ Sodium (Chloride) 40 mls @ 0.6 mls/hr IV .Q24H LINN; 0.01 UNITS/MIN PRN Reason: Protocol Last Admin: 01/05/17 17:27 Dose: 2.4 mls/hr Vancomycin/Sodium Chloride (Vancocin) 200 mls @ 133.333 mls/hr IVPB MWF [facility] Last Admin: 01/04/17 18:34 Dose: 133.333 mls/hr Amiodarone HCl 900 mg/ (Dextrose) 500 mls @ 16.66 mls/hr IV .Q24H ONE; 0.5 MG/ MIN PRN Reason: Protocol Stop: 01/06/17 04:03 Last Admin: 01/05/17 05:05 Dose: 16.66 mls/hr Cisatracurium Besylate 100 mg/ (Dextrose) 250 mls @ 30.55 mls/hr IV .Q8H11M LINN ; 3 MCG/KG/MIN PRN Reason: Protocol Last Titration: 01/05/17 16:57 Dose: 2 mcg/kg/min Sodium Bicarbonate 100 meq/ (Sodium Chloride) 1,100 mls @ 60 mls/hr IV .[id number] LINN Last Admin: 01/05/17 18:00 Dose: 60 mls/hr Lorazepam (Ativan) 1 mg IVP Q3H PRN PRN Reason: Anxiety Last Admin: 01/05/17 15:20 Dose: 1 mg Nystatin (Nystop Topical Powder) 1 applic TOP BID LINN Last Admin: 01/05/17 17:59 Dose: 1 appl Pantoprazole Sodium (Protonix Inj) 40 mg IVP DAILY [facility] Last Admin: 01/05/17 09:44 Dose: 40 mg - Labs Labs: 01/05/17 06:30 01/05/17 06:30 PT 17.7 SECONDS (9.7-12.2) H 12/30/16 10:43 INR 1.6 12/30/16 10:43 APTT 34 SECONDS (21-34) D 12/25/16 06:11 - Constitutional Appears: Toxic - Head Exam Head Exam: NORMAL INSPECTION - Eye Exam Eye Exam: absent: Conjunctival injection - ENT Exam ENT Exam: Mucous Membranes Moist - Neck Exam Neck Exam: Normal Inspection Additional comments: intubated - Respiratory Exam Respiratory Exam: Clear to Ausculation Bilateral Additional comments: tachypneic with shallow spontaneous breaths overbreathing vent; - Cardiovascular Exam Cardiovascular Exam: Tachycardia, REGULAR RHYTHM, +S1, +S2 - GI/Abdominal Exam GI & Abdominal Exam: Soft. absent: Distended - Extremities Exam Additional comments: markedly edematous ext - Neurological Exam Additional comments: minimal response to noxious stimuli; - Skin Skin Exam: Cyanosis Additional comments: cool distal ext Assessment and Plan (1) CHF (congestive heart failure) Assessment & Plan: Biventricular failure; was on milrinone but now stopped, likely worsening hypotension; may benefit from UF on HD if tolerated; Status: Acute (2) Hyperbilirubinemia Assessment & Plan: Stable but persistent; Status: Acute (3) Pneumonia Assessment & Plan: Now bilateral and progressively worse; critical care team to consider bronch when more stable; Status: Acute (4) Septic shock Assessment & Plan: On 2 vasopressors; abx per ID; Status: Acute (5) VERONICA (acute kidney injury) Assessment & Plan: Anuric renal failure in the setting of septic shock; started on HD; Status: Acute
[2017-01-06] MEDS: Cisatracurium Besylate 100 MG in Dextrose 5% In Water 240 ML IV SCH ×4 (00:26→18:03)
[2017-01-06] MEDS ORDERED: Dextrose 50% SYRINGE Inj (50 ml) IV STA ×3 (00:30→11:18)
[2017-01-06] MEDS: Phenylephrine 30 MG in Dextrose 5% In Water 250 ML IV PRN ×3 (04:25→21:00)
[2017-01-06 04:38] LABS: ABG ALLEN TEST POS; ABG MECHANICAL RATE 26; ARTERIAL BLOOD HGB O2 SAT 91.1 % (95.0-98.0); ATERIAL BLOOD GAS PEEP 5; CARBOXYHEMOGLOBIN 3.3 % (0.5-1.5); DRAW SITE RR; HHB 4.2 % (0.0-5.0); METHEMOGLOBIN 1.4 % (0.0-3.0)
[2017-01-06] MEDS: Petrolatum Oint Foilpak (5 gm) TOP PRN (06:06)
[2017-01-06] MEDS ORDERED: Sodium Bicarbonate (8.4%) 50 Meq Syringe IVP ONE (06:28)
[2017-01-06 06:47] LABS: CHLORIDE 99 mmol/L (98-107); POTASSIUM 4.9 mmol/L (3.6-5.2); SODIUM 138 mmol/L (132-148)
[2017-01-06 06:48] LABS: BASO # 0.2 K/uL (0.0-0.2); EOS % 0.1 % (0.0-4.0); MEAN CELL VOLUME 105.2 fL (81.0-99.0)
[2017-01-06 06:49] LABS: ALB/GLOB RATIO 0.6 (1.0-2.1); ALKALINE PHOSPHATASE 156 U/L (38-126); AST/SGOT 277 U/L (14-36); BILIRUBIN,TOTAL 6.9 mg/dL (0.2-1.3); BLOOD UREA NITROGEN 25 mg/dL (7-17); GFR AFRICAN-AMERICAN 17; TOTAL PROTEIN 5.5 g/dL (6.3-8.3)
[2017-01-06 06:50] LABS: ALT/SGPT 95 U/L (9-52); CALCIUM 7.7 mg/dl (8.6-10.4); MAGNESIUM 2.2 mg/dL (1.6-2.3); PHOSPHOROUS 6.8 mg/dL (2.5-4.5)
[2017-01-06 07:02] LABS: BASO % 0.4 % (0.0-2.0); HEMATOCRIT 30.1 % (34.0-47.0); LYMPH # 4.6 K/uL (1.0-4.3); LYMPH % 11.1 % (20.0-40.0); MEAN CORPUSCULAR HEMOGLOBIN 31.5 pg (27.0-31.0); MEAN PLATELET VOLUME 10.8 fL (7.2-11.7); MONO # 1.9 K/uL (0.0-0.8); MONO % 4.7 % (0.0-10.0); NRBC % 2.1 % (0.0-2.0); RED CELL DISTRIBUTION WIDTH 22.2 % (11.5-14.5)
[2017-01-06 07:12] LABS: CARBON DIOXIDE 10 mmol/L (22-30); GLUCOSE,RANDOM < 20 mg/dL (65-105)
[2017-01-06 07:15] LABS: WHITE BLOOD COUNT 41.4 K/uL (4.8-10.8)
--- NOTE | 2017-01-06 08:18 | CP.CCUPN ---
<Stephanie Echeverria - Last Filed: 01/06/17 12:51> CCU Subjective - Physician Review Subjective (Free Text): 12/28/16 20:48 Patient seen and examined at bedside. No acute distress. No acute events overnight per nursing. Patient back on AC/PRVC. Patient's persistent low BP halted attempts at a weaning trial. Patient able to follow commands. 12/29/16 15:52 Patient seen and examined at bedside. Per nursing decreased urine output. Patient began Milrinone drip yesterday at 0.5 mcg/kg/mi. Bp remains hypotensive but stable. 12/30/16 17:37 Patient seen and examined at bedside in no acute distress. Pt is intubated, on Milrinone drip, still low urine output . BP improved. Unable to obtain ROS at this point due to sedation. 12/31/16 18:19 Pt seen and examined at bedside . Patient's presentation appears to be worsening. Pt is intubated with continued low urine output. Current presentation as well as prognosis discussed with family members ( son and daughter-in law). Unable to obtain ROS at this time due to sedation. 01/01/17 08:26 Pt seen and examined at bedside . Patient's presentation remains the same. Pt is intubated with continued low urine output. Unable to obtain ROS at this time due to sedation. Prognosis discusses with son who wants full code status to remain. 01/05/17 12:02 Pt seen and examined in no acute distress. Patient's presentation remains unchanged. Receiving hemodialysis. Pt is intubated with continued low urine output. Unable to obtain ROS at this time due to sedation. Obtained consent for bronchoscopy through son. Son states that he wants us to continue all measures and medical efforts at this time. 01/06/17 08:26 Pt seen and examined in mild distress. Patient's clinical status has not improved. Patient is requiring work to breath even on FiO2 of 100%. Bicarb drip was added on yesterday. An ROS could not be obtained at this time due to patient being intubated and sedated. Dialysis catheter placed in left femoral. Discussed patient status with son who wants full measures taken. CCU Objective - Vital Signs / Intake & Output Vital Signs (Last 4 hours): Vital Signs Pulse Resp BP Pulse Ox 01/06/17 07:41 111 H 27 H 113/71 83 L 01/06/17 07:00 113 H 32 H 93 L 01/06/17 06:40 113 H 29 H 117/76 83 L 01/06/17 06:00 106 H 29 H 87 L 01/06/17 05:39 108 H 31 H 92/58 L 87 L 01/06/17 05:10 104 H 29 H 84 L 01/06/17 05:00 104 H 28 H 81 L 01/06/17 04:39 102 H 29 H 78/47 L 79 L 01/06/17 04:30 102 H 26 H 79/51 L 77 L 01/06/17 04:25 101 H 26 H 79/51 L 77 L Intake and Output (Last 8hrs): Intake & Output 01/05/17 01/06/17 01/06/17 22:59 06:59 14:59 Intake Total 1446.9 1910.9 215.5 Output Total 35 10 Balance 1411.9 1910.9 205.5 Weight 152 lb Intake: IV 56.3 Intake, IV Amount 1230.6 1595.9 180.5 Right Proximal Port 73.6 Internal Jugular Right Medial Port 365.2 125 25 Internal Jugular Right Distal Port 99.6 149.4 16.6 Internal Jugular Right Distal Port 247.8 506.7 56.3 Right Femoral 310 630 70 Right Internal Jugular 122.4 163.2 10.2 Right Medial Port 12.0 21.6 2.4 Tube Feeding 160 315 35 Output: Urine 35 10 Urethral (Noble) 35 10 Other: # Bowel Movements 0 - Physical Exam Head: Positive for: Atraumatic, Normocephalic Pupils: Positive for: PERRL Extroacular Muscles: Positive for: EOMI Conjunctiva: Positive for: Normal Mouth: Positive for: Moist Mucous Membranes Pharnyx: Positive for: Other (intubated, OG tube) Nose (External): Positive for: Atraumatic Respiratory/Chest: Positive for: Good Air Exchange, Other (intubated) Cardiovascular: Positive for: Normal S1, S2. Negative for: Murmurs Abdomen: Positive for: Normal Bowel Sounds. Negative for: Tenderness, Distention Genitourinary/Pelvic Exam: Positive for: Other (noble in place) Upper Extremity: Positive for: Other (scratches to upper extremities noted) Lower Extremity: Positive for: Other (1+ pitting edema to bilateral lower extremities ) Neurological: Positive for: Other (responsive to pain, corneal reflex, gag and cough reflexes intact, pupils reactive to light) Skin: Positive for: Warm, Dry, Abrasion. Negative for: Normal Color Psychiatric: Positive for: Alert - Medications Active Medications: Active Medications Generic Name Dose Route Start Last Admin Trade Name Freq PRN Reason Stop Dose Admin Acetaminophen 650 mg 01/05/17 02:31 01/05/17 11:14 Tylenol 650mg/20.3ml Solution Ud PO 650 mg Q4 PRN Administration fever 101 & above Emollient Ointment 5 gm 12/27/16 21:16 01/06/17 06:06 Vaseline Oint TOP 5 gm QID PRN Administration Azithromycin 500 mg/ Sodium 250 mls @ 250 mls/hr 12/23/16 10:00 01/05/17 12:26 Chloride IVPB 250 mls/hr DAILY LINN Administration Micafungin Sodium 100 mg/ 100 mls @ 100 mls/hr 01/01/17 16:30 01/05/17 16:01 Sodium Chloride IV 100 mls/hr Q24H LINN Administration Norepinephrine Bitartrate 8 mg 258 mls @ 38.7 mls/hr 01/02/17 23:30 01/06/17 04 :30 / Sodium Chloride IV 56.3 mls/hr .Q6H40M PRN Administration TITRATE PER MD ORDER Protocol 20 MCG/MIN Dexmedetomidine HCl 200 mcg/ 50 mls @ 3.25 mls/hr 01/03/17 09:58 01/03/17 13:00 Sodium Chloride IVPB 0 mcg/kg/hr TITR PRN Titration Agitation Protocol 0.2 MCG/KG/HR Cefepime HCl 100 mls @ 200 mls/hr 01/03/17 10:30 01/05/17 15:08 Maxipime Iv 2 Gm Premix IVPB 01/08/17 10:31 200 mls/hr Q24H LINN Administration Vasopressin 40 units/ Sodium 40 mls @ 0.6 mls/hr 01/03/17 16:15 01/05/17 17:27 Chloride IV 2.4 mls/hr .Q24H LINN Administration Protocol 0.01 UNITS/MIN Vancomycin/Sodium Chloride 200 mls @ 133.333 mls/hr 01/04/17 13:00 01/04/17 18: 34 Vancocin IVPB 133.333 mls/hr MWF LINN Administration Cisatracurium Besylate 100 mg/ 250 mls @ 30.55 mls/hr 01/05/17 16:15 01/06/17 00:26 Dextrose IV Not Given .[id number] LINN Protocol 3 MCG/KG/MIN Phenylephrine HCl 30 mg/ 253 mls @ 10.12 mls/hr 01/06/17 03:48 01/06/17 04:25 Dextrose IV 10.12 mls/hr .Q24H PRN Administration TITRATE PER MD ORDER Protocol 20 MCG/MIN Dextrose 1,000 mls @ 25 mls/hr 01/06/17 06:15 01/06/17 06:31 Dextrose 10% In Water IV 25 mls/hr .Q24H LINN Administration Sodium Bicarbonate 150 meq/ 1,150 mls @ 100 mls/hr 01/06/17 06:29 01/06/17 06: 49 Sodium Chloride IV Not Given .[id number] LINN Lorazepam 1 mg 01/01/17 20:56 01/05/17 15:20 Ativan IVP 1 mg Q3H PRN Administration Anxiety Nystatin 1 applic 01/01/17 10:15 01/05/17 17:59 Nystop Topical Powder TOP 1 appl BID LINN Administration Pantoprazole Sodium 40 mg 12/30/16 10:00 01/05/17 09:44 Protonix Inj IVP 40 mg DAILY LINN Administration - Patient Studies Lab Studies: Microbiology Studies 12/27/16 08:22 Mycobacterial Culture - Preliminary Other: Please Indicate Lab Studies 01/06/17 01/06/17 01/06/17 Range/Units 06:30 06:20 05:38 WBC 41.4 H* D (4.8-10.8) K/uL RBC 2.86 L (3.80-5.20) Mil/uL Hgb 9.0 L (11.0-16.0) g/dL Hct 30.1 L (34.0-47.0) % MCV 105.2 H D (81.0-99.0) fL MCH 31.5 H (27.0-31.0) pg MCHC 30.0 L (33.0-37.0) g/dL RDW 22.2 H (11.5-14.5) % Plt Count 51 L (130-400) K/uL MPV 10.8 (7.2-11.7) fL Neut % (Auto) 83.7 H (50.0-75.0) % Lymph % (Auto) 11.1 L (20.0-40.0) % [place] % (Auto) 4.7 (0.0-10.0) % Eos % (Auto) 0.1 (0.0-4.0) % Baso % (Auto) 0.4 (0.0-2.0) % Neut # 34.7 H (1.8-7.0) K/uL Lymph # 4.6 H (1.0-4.3) K/uL [place] # 1.9 H (0.0-0.8) K/uL Eos # 0.0 (0.0-0.7) K/uL Baso # 0.2 (0.0-0.2) K/uL Neutrophils % (Manual) (50-75) % Band Neutrophils % (0-2) % Lymphocytes % (Manual) (20-40) % Monocytes % (Manual) (0-10) % Metamyelocytes % (0-0) % Nucleated RBC % (0-0) % Platelet Estimate (NORMAL) Anisocytosis (manual) Macrocytosis (manual) Target Cells Puncture Site pCO2 (35-45) mm/Hg pO2 (80-100) mm/Hg HCO3 (21-28) mmol/L ABG pH (7.35-7.45) ABG Total CO2 (22-28) mmol/L ABG O2 Saturation (95-98) % ABG Base Excess (-2.0-3.0) mmol/L ABG Hemoglobin (11.7-17.4) g/dL ABG Carboxyhemoglobin (0.5-1.5) % POC ABG HHb (Measured) (0.0-5.0) % ABG Methemoglobin (0.0-3.0) % Billy Test A-a O2 Difference mm/Hg Respiratory Index Hgb O2 Saturation (95.0-98.0) % Mechanical Rate FiO2 % Tidal Volume PEEP Crit Value Called To Crit Value Called By Crit Value Read Back Blood Gas Notified Time Sodium 138 (132-148) mmol/L Potassium 4.9 (3.6-5.2) mmol/L Chloride 99 (98-107) mmol/L Carbon Dioxide 10 L* D (22-30) mmol/L Anion Gap 34 H (10-20) BUN 25 H (7-17) mg/dL Creatinine 3.3 H (0.7-1.2) MG/DL Est GFR ( Amer) 17 Est GFR (Non-Af Amer) 14 POC Glucose (mg/dL) 334 H < 20 L* (65-110) mg/dL Random Glucose < 20 L* D (65-105) mg/dL Calcium 7.7 L (8.6-10.4) mg/dl Phosphorus 6.8 H (2.5-4.5) mg/dL Magnesium 2.2 (1.6-2.3) mg/dL Total Bilirubin 6.9 H (0.2-1.3) mg/dL AST 277 H D (14-36) U/L ALT 95 H D (9-52) U/L Alkaline Phosphatase 156 H (38-126) U/L Total Protein 5.5 L (6.3-8.3) g/dL Albumin 2.1 L (3.5-5.0) g/dL Globulin 3.4 (2.2-3.9) gm/dL Albumin/Globulin Ratio 0.6 L (1.0-2.1) 01/06/17 01/06/17 01/05/17 Range/Units 04:25 00:09 20:10 WBC (4.8-10.8) K/uL RBC (3.80-5.20) Mil/uL Hgb (11.0-16.0) g/dL Hct (34.0-47.0) % MCV (81.0-99.0) fL MCH (27.0-31.0) pg MCHC (33.0-37.0) g/dL RDW (11.5-14.5) % Plt Count (130-400) K/uL MPV (7.2-11.7) fL Neut % (Auto) (50.0-75.0) % Lymph % (Auto) (20.0-40.0) % [place] % (Auto) (0.0-10.0) % Eos % (Auto) (0.0-4.0) % Baso % (Auto) (0.0-2.0) % Neut # (1.8-7.0) K/uL Lymph # (1.0-4.3) K/uL [place] # (0.0-0.8) K/uL Eos # (0.0-0.7) K/uL Baso # (0.0-0.2) K/uL Neutrophils % (Manual) (50-75) % Band Neutrophils % (0-2) % Lymphocytes % (Manual) (20-40) % Monocytes % (Manual) (0-10) % Metamyelocytes % (0-0) % Nucleated RBC % (0-0) % Platelet Estimate (NORMAL) Anisocytosis (manual) Macrocytosis (manual) Target Cells Puncture Site Rr Rra pCO2 35 51 H (35-45) mm/Hg pO2 72 L 49 L (80-100) mm/Hg HCO3 7.8 L* 10.9 L (21-28) mmol/L ABG pH 6.98 L* 7.00 L* (7.35-7.45) ABG Total CO2 9.3 L 14.2 L (22-28) mmol/L ABG O2 Saturation 95.6 80.8 L (95-98) % ABG Base Excess -21.9 L -17.6 L (-2.0-3.0) mmol/L ABG Hemoglobin 8.2 L 7.9 L (11.7-17.4) g/dL ABG Carboxyhemoglobin 3.3 H 3.3 H (0.5-1.5) % POC ABG HHb (Measured) 4.2 18.5 H (0.0-5.0) % ABG Methemoglobin 1.4 0.4 (0.0-3.0) % Billy Test Pos Pos A-a O2 Difference 597.0 600.0 mm/Hg Respiratory Index 8.3 12.2 Hgb O2 Saturation 91.1 L 77.8 L (95.0-98.0) % Mechanical Rate 26 26 FiO2 100.0 100.0 % Tidal Volume 550 500 PEEP 5 5 Crit Value Called To Marium cueva rn/ccu Dr perara Crit Value Called By Moises haywood/rt Mjohn Crit Value Read Back Y Y Blood Gas Notified Time 450 2020 Sodium (132-148) mmol/L Potassium (3.6-5.2) mmol/L Chloride (98-107) mmol/L Carbon Dioxide (22-30) mmol/L Anion Gap (10-20) BUN (7-17) mg/dL Creatinine (0.7-1.2) MG/DL Est GFR ( Amer) Est GFR (Non-Af Amer) POC Glucose (mg/dL) 79 (65-110) mg/dL Random Glucose (65-105) mg/dL Calcium (8.6-10.4) mg/dl Phosphorus (2.5-4.5) mg/dL Magnesium (1.6-2.3) mg/dL Total Bilirubin (0.2-1.3) mg/dL AST (14-36) U/L ALT (9-52) U/L Alkaline Phosphatase (38-126) U/L Total Protein (6.3-8.3) g/dL Albumin (3.5-5.0) g/dL Globulin (2.2-3.9) gm/dL Albumin/Globulin Ratio (1.0-2.1) 01/05/17 01/05/17 01/05/17 Range/Units 17:51 17:30 15:45 WBC (4.8-10.8) K/uL RBC (3.80-5.20) Mil/uL Hgb (11.0-16.0) g/dL Hct (34.0-47.0) % MCV (81.0-99.0) fL MCH (27.0-31.0) pg MCHC (33.0-37.0) g/dL RDW (11.5-14.5) % Plt Count (130-400) K/uL MPV (7.2-11.7) fL Neut % (Auto) (50.0-75.0) % Lymph % (Auto) (20.0-40.0) % [place] % (Auto) (0.0-10.0) % Eos % (Auto) (0.0-4.0) % Baso % (Auto) (0.0-2.0) % Neut # (1.8-7.0) K/uL Lymph # (1.0-4.3) K/uL [place] # (0.0-0.8) K/uL Eos # (0.0-0.7) K/uL Baso # (0.0-0.2) K/uL Neutrophils % (Manual) (50-75) % Band Neutrophils % (0-2) % Lymphocytes % (Manual) (20-40) % Monocytes % (Manual) (0-10) % Metamyelocytes % (0-0) % Nucleated RBC % (0-0) % Platelet Estimate (NORMAL) Anisocytosis (manual) Macrocytosis (manual) Target Cells Puncture Site Rra Rra pCO2 60 H 43 (35-45) mm/Hg pO2 46 L 69 L (80-100) mm/Hg HCO3 11.7 L 19.2 L (21-28) mmol/L ABG pH 6.99 L* 7.26 L (7.35-7.45) ABG Total CO2 16.3 L 20.6 L (22-28) mmol/L ABG O2 Saturation 73.7 L 97.0 (95-98) % ABG Base Excess -16.4 L -7.3 L (-2.0-3.0) mmol/L ABG Hemoglobin 9.1 L 9.0 L (11.7-17.4) g/dL ABG Carboxyhemoglobin 2.4 H 2.7 H (0.5-1.5) % POC ABG HHb (Measured) 25.4 H 2.9 (0.0-5.0) % ABG Methemoglobin 0.9 0.8 (0.0-3.0) % Billy Test Pos Pos A-a O2 Difference 592.0 590.0 mm/Hg Respiratory Index 12.9 8.6 Hgb O2 Saturation 71.2 L 93.7 L (95.0-98.0) % Mechanical Rate 20 20 FiO2 100.0 100.0 % Tidal Volume 500 500 PEEP 5 5 Crit Value Called To Dr bui Crit Value Called By Tigre perkins Crit Value Read Back Y Blood Gas Notified Time 1740 Sodium (132-148) mmol/L Potassium (3.6-5.2) mmol/L Chloride (98-107) mmol/L Carbon Dioxide (22-30) mmol/L Anion Gap (10-20) BUN (7-17) mg/dL Creatinine (0.7-1.2) MG/DL Est GFR ( Amer) Est GFR (Non-Af Amer) POC Glucose (mg/dL) 135 H (65-110) mg/dL Random Glucose (65-105) mg/dL Calcium (8.6-10.4) mg/dl Phosphorus (2.5-4.5) mg/dL Magnesium (1.6-2.3) mg/dL Total Bilirubin (0.2-1.3) mg/dL AST (14-36) U/L ALT (9-52) U/L Alkaline Phosphatase (38-126) U/L Total Protein (6.3-8.3) g/dL Albumin (3.5-5.0) g/dL Globulin (2.2-3.9) gm/dL Albumin/Globulin Ratio (1.0-2.1) 01/05/17 01/05/17 01/05/17 Range/Units 11:41 10:05 06:30 WBC (4.8-10.8) K/uL RBC (3.80-5.20) Mil/uL Hgb (11.0-16.0) g/dL Hct (34.0-47.0) % MCV (81.0-99.0) fL MCH (27.0-31.0) pg MCHC (33.0-37.0) g/dL RDW (11.5-14.5) % Plt Count (130-400) K/uL MPV (7.2-11.7) fL Neut % (Auto) (50.0-75.0) % Lymph % (Auto) (20.0-40.0) % [place] % (Auto) (0.0-10.0) % Eos % (Auto) (0.0-4.0) % Baso % (Auto) (0.0-2.0) % Neut # (1.8-7.0) K/uL Lymph # (1.0-4.3) K/uL [place] # (0.0-0.8) K/uL Eos # (0.0-0.7) K/uL Baso # (0.0-0.2) K/uL Neutrophils % (Manual) 83 H (50-75) % Band Neutrophils % 6 H (0-2) % Lymphocytes % (Manual) 5 L (20-40) % Monocytes % (Manual) 5 (0-10) % Metamyelocytes % 1 H (0-0) % Nucleated RBC % 1 H (0-0) % Platelet Estimate Decreased L (NORMAL) Anisocytosis (manual) Moderate Macrocytosis (manual) Slight Target Cells Slight Puncture Site pCO2 (35-45) mm/Hg pO2 (80-100) mm/Hg HCO3 (21-28) mmol/L ABG pH (7.35-7.45) ABG Total CO2 (22-28) mmol/L ABG O2 Saturation (95-98) % ABG Base Excess (-2.0-3.0) mmol/L ABG Hemoglobin (11.7-17.4) g/dL ABG Carboxyhemoglobin (0.5-1.5) % POC ABG HHb (Measured) (0.0-5.0) % ABG Methemoglobin (0.0-3.0) % Billy Test A-a O2 Difference mm/Hg Respiratory Index Hgb O2 Saturation (95.0-98.0) % Mechanical Rate FiO2 % Tidal Volume PEEP Crit Value Called To Crit Value Called By Crit Value Read Back Blood Gas Notified Time Sodium (132-148) mmol/L Potassium (3.6-5.2) mmol/L Chloride (98-107) mmol/L Carbon Dioxide (22-30) mmol/L Anion Gap (10-20) BUN (7-17) mg/dL Creatinine (0.7-1.2) MG/DL Est GFR ( Amer) Est GFR (Non-Af Amer) POC Glucose (mg/dL) 168 H 169 H (65-110) mg/dL Random Glucose (65-105) mg/dL Calcium (8.6-10.4) mg/dl Phosphorus (2.5-4.5) mg/dL Magnesium (1.6-2.3) mg/dL Total Bilirubin (0.2-1.3) mg/dL AST (14-36) U/L ALT (9-52) U/L Alkaline Phosphatase (38-126) U/L Total Protein (6.3-8.3) g/dL Albumin (3.5-5.0) g/dL Globulin (2.2-3.9) gm/dL Albumin/Globulin Ratio (1.0-2.1) Laboratory Results - last 24 hr 01/05/17 01/05/17 01/05/17 06:30 10:05 11:41 WBC RBC Hgb Hct MCV MCH MCHC RDW Plt Count MPV Neut % (Auto) Lymph % (Auto) [place] % (Auto) Eos % (Auto) Baso % (Auto) Neut # Lymph # [place] # Eos # Baso # Neutrophils % (Manual) 83 H Band Neutrophils % 6 H Lymphocytes % (Manual) 5 L Monocytes % (Manual) 5 Metamyelocytes % 1 H Nucleated RBC % 1 H Platelet Estimate Decreased L Anisocytosis (manual) Moderate Macrocytosis (manual) Slight Target Cells Slight Puncture Site pCO2 pO2 HCO3 ABG pH ABG Total CO2 ABG O2 Saturation ABG Base Excess ABG Hemoglobin ABG Carboxyhemoglobin POC ABG HHb (Measured) ABG Methemoglobin Billy Test A-a O2 Difference Respiratory Index Hgb O2 Saturation Mechanical Rate FiO2 Tidal Volume PEEP Crit Value Called To Crit Value Called By Crit Value Read Back Blood Gas Notified Time Sodium Potassium Chloride Carbon Dioxide Anion Gap BUN Creatinine Est GFR ( Amer) Est GFR (Non-Af Amer) POC Glucose (mg/dL) 169 H 168 H Random Glucose Calcium Phosphorus Magnesium Total Bilirubin AST ALT Alkaline Phosphatase Total Protein Albumin Globulin Albumin/Globulin Ratio 01/05/17 01/05/17 01/05/17 15:45 17:30 17:51 WBC RBC Hgb Hct MCV MCH MCHC RDW Plt Count MPV Neut % (Auto) Lymph % (Auto) [place] % (Auto) Eos % (Auto) Baso % (Auto) Neut # Lymph # [place] # Eos # Baso # Neutrophils % (Manual) Band Neutrophils % Lymphocytes % (Manual) Monocytes % (Manual) Metamyelocytes % Nucleated RBC % Platelet Estimate Anisocytosis (manual) Macrocytosis (manual) Target Cells Puncture Site Rra Rra pCO2 43 60 H pO2 69 L 46 L HCO3 19.2 L 11.7 L ABG pH 7.26 L 6.99 L* ABG Total CO2 20.6 L 16.3 L ABG O2 Saturation 97.0 73.7 L ABG Base Excess -7.3 L -16.4 L ABG Hemoglobin 9.0 L 9.1 L ABG Carboxyhemoglobin 2.7 H 2.4 H POC ABG HHb (Measured) 2.9 25.4 H ABG Methemoglobin 0.8 0.9 Billy Test Pos Pos A-a O2 Difference 590.0 592.0 Respiratory Index 8.6 12.9 Hgb O2 Saturation 93.7 L 71.2 L Mechanical Rate 20 20 FiO2 100.0 100.0 Tidal Volume 500 500 PEEP 5 5 Crit Value Called To Dr bui Crit Value Called By Tigre perkins Crit Value Read Back Y Blood Gas Notified Time 1740 Sodium Potassium Chloride Carbon Dioxide Anion Gap BUN Creatinine Est GFR ( Amer) Est GFR (Non-Af Amer) POC Glucose (mg/dL) 135 H Random Glucose Calcium Phosphorus Magnesium Total Bilirubin AST ALT Alkaline Phosphatase Total Protein Albumin Globulin Albumin/Globulin Ratio 01/05/17 01/06/17 01/06/17 20:10 00:09 04:25 WBC RBC Hgb Hct MCV MCH MCHC RDW Plt Count MPV Neut % (Auto) Lymph % (Auto) [place] % (Auto) Eos % (Auto) Baso % (Auto) Neut # Lymph # [place] # Eos # Baso # Neutrophils % (Manual) Band Neutrophils % Lymphocytes % (Manual) Monocytes % (Manual) Metamyelocytes % Nucleated RBC % Platelet Estimate Anisocytosis (manual) Macrocytosis (manual) Target Cells Puncture Site Rra Rr pCO2 51 H 35 pO2 49 L 72 L HCO3 10.9 L 7.8 L* ABG pH 7.00 L* 6.98 L* ABG Total CO2 14.2 L 9.3 L ABG O2 Saturation 80.8 L 95.6 ABG Base Excess -17.6 L -21.9 L ABG Hemoglobin 7.9 L 8.2 L ABG Carboxyhemoglobin 3.3 H 3.3 H POC ABG HHb (Measured) 18.5 H 4.2 ABG Methemoglobin 0.4 1.4 Billy Test Pos Pos A-a O2 Difference 600.0 597.0 Respiratory Index 12.2 8.3 Hgb O2 Saturation 77.8 L 91.1 L Mechanical Rate 26 26 FiO2 100.0 100.0 Tidal Volume 500 550 PEEP 5 5 Crit Value Called To Dr monty cueva rn/ccu Crit Value Called By Henrry haywood/rt Crit Value Read Back Y Y Blood Gas Notified Time 2019 450 Sodium Potassium Chloride Carbon Dioxide Anion Gap BUN Creatinine Est GFR ( Amer) Est GFR (Non-Af Amer) POC Glucose (mg/dL) 79 Random Glucose Calcium Phosphorus Magnesium Total Bilirubin AST ALT Alkaline Phosphatase Total Protein Albumin Globulin Albumin/Globulin Ratio 01/06/17 01/06/17 01/06/17 05:38 06:20 06:30 WBC 41.4 H* D RBC 2.86 L Hgb 9.0 L Hct 30.1 L MCV 105.2 H D MCH 31.5 H MCHC 30.0 L RDW 22.2 H Plt Count 51 L MPV 10.8 Neut % (Auto) 83.7 H Lymph % (Auto) 11.1 L [place] % (Auto) 4.7 Eos % (Auto) 0.1 Baso % (Auto) 0.4 Neut # 34.7 H Lymph # 4.6 H [place] # 1.9 H Eos # 0.0 Baso # 0.2 Neutrophils % (Manual) Band Neutrophils % Lymphocytes % (Manual) Monocytes % (Manual) Metamyelocytes % Nucleated RBC % Platelet Estimate Anisocytosis (manual) Macrocytosis (manual) Target Cells Puncture Site pCO2 pO2 HCO3 ABG pH ABG Total CO2 ABG O2 Saturation ABG Base Excess ABG Hemoglobin ABG Carboxyhemoglobin POC ABG HHb (Measured) ABG Methemoglobin Billy Test A-a O2 Difference Respiratory Index Hgb O2 Saturation Mechanical Rate FiO2 Tidal Volume PEEP Crit Value Called To Crit Value Called By Crit Value Read Back Blood Gas Notified Time Sodium 138 Potassium 4.9 Chloride 99 Carbon Dioxide 10 L* D Anion Gap 34 H BUN 25 H Creatinine 3.3 H Est GFR ( Amer) 17 Est GFR (Non-Af Amer) 14 POC Glucose (mg/dL) < 20 L* 334 H Random Glucose < 20 L* D Calcium 7.7 L Phosphorus 6.8 H Magnesium 2.2 Total Bilirubin 6.9 H AST 277 H D ALT 95 H D Alkaline Phosphatase 156 H Total Protein 5.5 L Albumin 2.1 L Globulin 3.4 Albumin/Globulin Ratio 0.6 L Fingerstick Blood Sugar Results: 20 Review of Systems - Review of Systems Review of Systems: as noted in subjective Assessment/Plan - Assessment and Plan (Free Text) Assessment: Pt is 61F with extensive medical history pertinent for lupus, heart failure with AICD, stroke with left-sided deficit, and HTN admitted to the ICU s/p agonal breathing requiring intubation on medical floor. Patient being treated for sepsis likely secondary to aspiration pneumonia. Patient metabolic status worsening secondary to underlying sepsis and worsening kidney function. Prognosis poor. Plan: Neuro: Not sedated, minimally responsive History of CVA with residual weakness Head CT: No evidence of acute intracranial hemorrhage, acute territorial infarct , mass effect or midline shift. Moderate-size encephalomalacia at the left temporal parietal lobe suggestive of chronic left MCA territory infarct. Moderate atrophy and white matter changes. CVS: Currently normotensive, BP 107/67 - on multiple pressors (levophed, amiodarone) and norepinephrine for septic shock CHF with EF noted to be 26% on previous echocardiogram Repeat echo (12/22/16): LVEF <20%, LV is mildly dilated, LA is mildly dilated. Mild AR, moderate-severe MR, Moderate-severe pulmonary HTN. 12/28/[address] - Left-sided AICD. Cardiomegaly. Coronary artery calcifications. AICD - interrogated 12/25, no issues Pro-BNP 32,000 (12/22/16) History of HTN Follows chronometer tester Dr. Rubio as outpatient [employer] Supervisor Dr. Montelongo consulted - help appreciated 01/06/17 Cardio note: consider adding Lidocaine. TLC in RIJ YOUSUF panel negative. Troponins 0.0240>0.0670>0.0830 Pulm: Severe b/l pneumonia - abx as below Intubated, monitor Vent settings adjusted accordingly 01/06/17 ABG: pCO2 35, pO2 72, HCO3 7.8, pH 6.98 01/04/17 ABG: pCO2 41, pO2 87, HCO3 25.8, pH 7.41 01/01/17 ABG: pCO2 25, pO2 60, HCO3 16.9, pH 7.36 12/31/16 ABG: pCO2 20, pO2 101, HCO3 13.8, pH 7.32; VBG pH 7.25, pCO2 24. HCO3 12.5, Lactate 1.2. Worsening CO2 11, repeat check remained at 11 - Bicarb drip started 12/31, stopped 01/03 Saturating 70s% on 100% FiO2 01/06/17 CXR: 01/04/17 CXR: In situ ETT, tip of which lies approximately 4.5 cm above isauro. Right IJ central venous line unchanged. In situ NGT, tip of which is has not been included on this study though distal aspect does lie below EG junction. Single lead pacemaker/defibrillator also on altered. Diffuse bilateral infiltrates unchanged. Questionable small left effusion 01/03/17 CXR: In situ ETT, the tip of which lies approximately 5.4 cm above isauro. NGT is present, the tip of which is not seen on this study however distal aspect does not appear to lie below EG junction. No change right IJ central venous line with tip in the SVC/RA junction. Support lines and tubes as above. Diffuse bilateral infiltrates again noted with suspected small left effusion 01/01/17 CXR: Diffuse patchy hazy opacities increased from 12/31/16 - GI consulted - dominguez cultures with reccs for bronc/lavage when stable - Abx on board. AFB smear negative, culture pending Antibiotics as below GI: OG tube, receiving feeds, Peptamen at goal FOBT positive 12/31/16 Nursing reported black stools on 01/03/17 Colonoscopy not possible at this time, will transfuse as needed. Hepatitis panel negative, AMA negative (r/o PBC), Ceruloplasmin negative, LKM ab negative, Anti-SM - pending. GI consulted - help appreciated Pancreatic protocol CT (12/25/16) - Fatty infiltration of the liver, heterogeneous. Innumerable small enhancing nodules on portal venous phase images of the liver. Uncertain significance. Consider metastatic disease. Unlikely hepatocellular neoplasm. No evidence of pancreatitis or pancreatic mass. No biliary obstruction. Mild ascites. Small right and trace left pleural effusion with lower lobe compressive atelectasis. Permanent pacemaker. T.bili of 9.5, Direct bili of 7.2, GGT 126, AST 126, ALT 79 on admission T. bili 6.6, AST 163, ALT 105 (12/24/16) T. bili 7.6, AST 201, ALT 109 (12/25/16) T. bili 5.3, AST 507, ALT 221, Alk phos 132 (12/28/16) T. bili 4.2, AST 523, ALT 313, Alk phos 108 (12/30/16) T. bili 5.3, AST 82, ALT 73, Alk phos 140 (01/04/17) T. bili 6.9, AST 277, ALT 95, Alk Phos 156 (01/06/17) - transaminitis, likely 2/ 2 critical illness Hyperbilirubinemia - Continue to trend T.bili and LFTs CT Abdomen and Pelvis w/o contrast (12/22/16): Small to moderate right pleural effusion. Trace ascites. Nonspecific presacral edema. Mild generalized anasarca. Mild hepatomegaly with fatty infiltration of the liver. No evidence of biliary obstruction. No evidence of cholecystitis. Mild nonspecific presacral edema, possibly related generalized anasarca. Protonix 40mg IVP daily RUQ US (12/23/16): Right renal cysts. Incidental note is made of small right pleural effusion. Echogenic liver may be in setting of hepatic parenchymal disease or fatty infiltration. Small perihepatic ascites. Small fluid is noted by the gallbladder fossa. Gallbladder wall thickening/pericholecystic edema without evidence of gallstones. Negative sonographic Hutchinson's sign as assessed by the excellence coach. No portal vein thrombosis. Heme: Anemia (Hgb 9.0, Hct 30.1) - continuing despite blood transfusions, likely 2/2 critical illness Worsening thrombocytopenia (Plt 51), likely 2/2 sepsis Monitor Endo: T3 and T4 are low on admission with normal TSH TSH 1.34, T3 uptake >65.o, Free T4 0.87 Maintain euglycemia Rheumatology: History of lupus Was on Plaquenil 200mg BID - stopped 01/03 in light of thrombocytopenia Folic acid 1mg PO daily IgG 1775.0 IgA 510.1 IgM 66.[address] Reynaga as outpatient Nephro: Acute renal failure - pt on dialysis. HD on 01/05/17 - catheters clogged, completed 18min of dialysis Catheters replaced 01/06/17 BUN/Cr 25/3.3 UTI: 12/26 culture positive for E.Coli, Abx as below 12/28/[address] - Limited visualization of the upper abdomen demonstrates numerous bilateral renal lesions, possibly cysts. Hyperdense 11 mm left upper pole exophytic lesion, indeterminate. Decreased urine output, I/O 2545/390 Nephro (Dr. Wong) consulted -help appreciated Increased IVF Monitor : monitor urine output Noble in Maintenance fluids 75cc/hr ID: Worsening leukocytosis (WBC: 41.4) severe b/l pneumonia - on abx Hepatitis panel negative Stool ova and parasite - negative UTI, urine cx positive for E.coli MRSA and blood cultures negative Started Cefepime 2gm IVPB Q8H (12/24/16); On azithromycin 500mg IVPB daily, Micafungin vanco added 01/04/17 F/U studies per ID Stool for C.diff - negative AFB smear negative x3; mycobacterium culture pending D/c isolation Prophylaxis: Protonix 40mg IVP daily Poor prognosis- Discussed with son Chance at [phone] and patient wants all measures taken at this time. Full Code status remains. <Shola Bui - Last Filed: 01/06/17 15:33> CCU Objective - Vital Signs / Intake & Output Vital Signs (Last 4 hours): Vital Signs Temp Pulse Resp BP Pulse Ox 01/06/17 15:00 109 H 26 H 90 L 01/06/17 14:39 108 H 26 H 121/67 90 L 01/06/17 14:09 109 H 26 H 108/59 L 90 L 01/06/17 14:00 110 H 26 H 89 L 01/06/17 13:56 110 H 26 H 116/63 88 L 01/06/17 13:39 109 H 26 H 116/63 88 L 01/06/17 13:00 109 H 26 H 86 L 01/06/17 12:40 108 H 26 H 111/63 85 L 01/06/17 12:39 108 H 26 H 111/63 85 L 01/06/17 12:03 108 H 26 H 86 L 01/06/17 12:00 99 F 108 H 26 H 86 L 01/06/17 11:55 107 H 26 H 86 L 01/06/17 11:39 107 H 26 H 101/60 86 L Intake and Output (Last 8hrs): Intake & Output 01/06/17 01/06/17 01/06/17 06:59 14:59 22:59 Intake Total 1910.9 2450.2 245.7 Output Total 10 Balance 1910.9 2440.2 245.7 Weight 152 lb Intake: Intake, IV Amount 1595.9 2240.2 245.7 Right Proximal Port 350 Internal Jugular Right Medial Port 125 200 25 Internal Jugular Right Distal Port 149.4 132.8 16.6 Internal Jugular Right Distal Port 506.7 450.4 56.3 Right Femoral 630 770 100 Right Internal Jugular 163.2 142.8 20.4 Right Medial Port 21.6 19.2 2.4 Right Distal Port Femoral 175 25 Tube Feeding 315 210 0 Output: Urine 10 Urethral (Noble) 10 Other: # Bowel Movements 1 - Medications Active Medications: Active Medications Generic Name Dose Route Start Last Admin Trade Name Freq PRN Reason Stop Dose Admin Acetaminophen 650 mg 01/05/17 02:31 01/05/17 11:14 Tylenol 650mg/20.3ml Solution Ud PO 650 mg Q4 PRN Administration fever 101 & above Emollient Ointment 5 gm 12/27/16 21:16 01/06/17 06:06 Vaseline Oint TOP 5 gm QID PRN Administration Azithromycin 500 mg/ Sodium 250 mls @ 250 mls/hr 12/23/16 10:00 01/06/17 09:29 Chloride IVPB 250 mls/hr DAILY LINN Administration Micafungin Sodium 100 mg/ 100 mls @ 100 mls/hr 01/01/17 16:30 01/05/17 16:01 Sodium Chloride IV 100 mls/hr Q24H LINN Administration Norepinephrine Bitartrate 8 mg 258 mls @ 38.7 mls/hr 01/02/17 23:30 01/06/17 09 :31 / Sodium Chloride IV 56.3 mls/hr .[id number] PRN Administration TITRATE PER MD ORDER Protocol 20 MCG/MIN Dexmedetomidine HCl 200 mcg/ 50 mls @ 3.25 mls/hr 01/03/17 09:58 01/03/17 13:00 Sodium Chloride IVPB 0 mcg/kg/hr TITR PRN Titration Agitation Protocol 0.2 MCG/KG/HR Cefepime HCl 100 mls @ 200 mls/hr 01/03/17 10:30 01/06/17 10:59 Maxipime Iv 2 Gm Premix IVPB 01/08/17 10:31 200 mls/hr Q24H LINN Administration Vasopressin 40 units/ Sodium 40 mls @ 0.6 mls/hr 01/03/17 16:15 01/05/17 17:27 Chloride IV 2.4 mls/hr .Q24H LINN Administration Protocol 0.01 UNITS/MIN Vancomycin/Sodium Chloride 200 mls @ 133.333 mls/hr 01/04/17 13:00 01/04/17 18: 34 Vancocin IVPB 133.333 mls/hr MWF LINN Administration Cisatracurium Besylate 100 mg/ 250 mls @ 30.55 mls/hr 01/05/17 16:15 01/06/17 12:22 Dextrose IV 20.37 mls/hr .[id number] LINN Administration Protocol 3 MCG/KG/MIN Phenylephrine HCl 30 mg/ 253 mls @ 10.12 mls/hr 01/06/17 03:48 01/06/17 15:28 Dextrose IV 74.11 mcg/min .Q24H PRN Titration TITRATE PER MD ORDER Protocol 20 MCG/MIN Sodium Bicarbonate 150 meq/ 1,150 mls @ 100 mls/hr 01/06/17 06:29 01/06/17 14: 35 Sodium Chloride IV 100 mls/hr .[id number] LINN Administration Dextrose 1,000 mls @ 25 mls/hr 01/06/17 14:00 01/06/17 15:03 Dextrose 5% In Water 1000 Ml IV 25 mls/hr .Q24H LINN Administration Lorazepam 1 mg 01/01/17 20:56 01/05/17 15:20 Ativan IVP 1 mg Q3H PRN Administration Anxiety Nystatin 1 applic 01/01/17 10:15 01/06/17 09:29 Nystop Topical Powder TOP 1 appl BID LINN Administration Pantoprazole Sodium 40 mg 12/30/16 10:00 01/06/17 09:29 Protonix Inj IVP 40 mg DAILY LINN Administration - Patient Studies Lab Studies: Microbiology Studies 12/29/16 08:55 Mycobacterial Culture - Preliminary Other: Please Indicate Lab Studies 01/06/17 01/06/17 01/06/17 Range/Units 14:59 13:02 11:41 WBC (4.8-10.8) K/uL RBC (3.80-5.20) Mil/uL Hgb (11.0-16.0) g/dL Hct (34.0-47.0) % MCV (81.0-99.0) fL MCH (27.0-31.0) pg MCHC (33.0-37.0) g/dL RDW (11.5-14.5) % Plt Count (130-400) K/uL MPV (7.2-11.7) fL Neut % (Auto) (50.0-75.0) % Lymph % (Auto) (20.0-40.0) % [place] % (Auto) (0.0-10.0) % Eos % (Auto) (0.0-4.0) % Baso % (Auto) (0.0-2.0) % Neut # (1.8-7.0) K/uL Lymph # (1.0-4.3) K/uL [place] # (0.0-0.8) K/uL Eos # (0.0-0.7) K/uL Baso # (0.0-0.2) K/uL Puncture Site pCO2 (35-45) mm/Hg pO2 (80-100) mm/Hg HCO3 (21-28) mmol/L ABG pH (7.35-7.45) ABG Total CO2 (22-28) mmol/L ABG O2 Saturation (95-98) % ABG Base Excess (-2.0-3.0) mmol/L ABG Hemoglobin (11.7-17.4) g/dL ABG Carboxyhemoglobin (0.5-1.5) % POC ABG HHb (Measured) (0.0-5.0) % ABG Methemoglobin (0.0-3.0) % Billy Test A-a O2 Difference mm/Hg Respiratory Index Hgb O2 Saturation (95.0-98.0) % Mechanical Rate FiO2 % Tidal Volume PEEP Crit Value Called To Crit Value Called By Crit Value Read Back Blood Gas Notified Time Sodium (132-148) mmol/L Potassium (3.6-5.2) mmol/L Chloride (98-107) mmol/L Carbon Dioxide (22-30) mmol/L Anion Gap (10-20) BUN (7-17) mg/dL Creatinine (0.7-1.2) MG/DL Est GFR ( Amer) Est GFR (Non-Af Amer) POC Glucose (mg/dL) 185 H 183 H 220 H (65-110) mg/dL Random Glucose (65-105) mg/dL Calcium (8.6-10.4) mg/dl Phosphorus (2.5-4.5) mg/dL Magnesium (1.6-2.3) mg/dL Total Bilirubin (0.2-1.3) mg/dL AST (14-36) U/L ALT (9-52) U/L Alkaline Phosphatase (38-126) U/L Total Protein (6.3-8.3) g/dL Albumin (3.5-5.0) g/dL Globulin (2.2-3.9) gm/dL Albumin/Globulin Ratio (1.0-2.1) 01/06/17 01/06/17 01/06/17 Range/Units 11:14 09:05 08:03 WBC (4.8-10.8) K/uL RBC (3.80-5.20) Mil/uL Hgb (11.0-16.0) g/dL Hct (34.0-47.0) % MCV (81.0-99.0) fL MCH (27.0-31.0) pg MCHC (33.0-37.0) g/dL RDW (11.5-14.5) % Plt Count (130-400) K/uL MPV (7.2-11.7) fL Neut % (Auto) (50.0-75.0) % Lymph % (Auto) (20.0-40.0) % [place] % (Auto) (0.0-10.0) % Eos % (Auto) (0.0-4.0) % Baso % (Auto) (0.0-2.0) % Neut # (1.8-7.0) K/uL Lymph # (1.0-4.3) K/uL [place] # (0.0-0.8) K/uL Eos # (0.0-0.7) K/uL Baso # (0.0-0.2) K/uL Puncture Site pCO2 (35-45) mm/Hg pO2 (80-100) mm/Hg HCO3 (21-28) mmol/L ABG pH (7.35-7.45) ABG Total CO2 (22-28) mmol/L ABG O2 Saturation (95-98) % ABG Base Excess (-2.0-3.0) mmol/L ABG Hemoglobin (11.7-17.4) g/dL ABG Carboxyhemoglobin (0.5-1.5) % POC ABG HHb (Measured) (0.0-5.0) % ABG Methemoglobin (0.0-3.0) % Billy Test A-a O2 Difference mm/Hg Respiratory Index Hgb O2 Saturation (95.0-98.0) % Mechanical Rate FiO2 % Tidal Volume PEEP Crit Value Called To Crit Value Called By Crit Value Read Back Blood Gas Notified Time Sodium (132-148) mmol/L Potassium (3.6-5.2) mmol/L Chloride (98-107) mmol/L Carbon Dioxide (22-30) mmol/L Anion Gap (10-20) BUN (7-17) mg/dL Creatinine (0.7-1.2) MG/DL Est GFR ( Amer) Est GFR (Non-Af Amer) POC Glucose (mg/dL) 43 L 177 H 91 (65-110) mg/dL Random Glucose (65-105) mg/dL Calcium (8.6-10.4) mg/dl Phosphorus (2.5-4.5) mg/dL Magnesium (1.6-2.3) mg/dL Total Bilirubin (0.2-1.3) mg/dL AST (14-36) U/L ALT (9-52) U/L Alkaline Phosphatase (38-126) U/L Total Protein (6.3-8.3) g/dL Albumin (3.5-5.0) g/dL Globulin (2.2-3.9) gm/dL Albumin/Globulin Ratio (1.0-2.1) 01/06/17 01/06/17 01/06/17 Range/Units 06:30 06:20 05:38 WBC 41.4 H* D (4.8-10.8) K/uL RBC 2.86 L (3.80-5.20) Mil/uL Hgb 9.0 L (11.0-16.0) g/dL Hct 30.1 L (34.0-47.0) % MCV 105.2 H D (81.0-99.0) fL MCH 31.5 H (27.0-31.0) pg MCHC 30.0 L (33.0-37.0) g/dL RDW 22.2 H (11.5-14.5) % Plt Count 51 L (130-400) K/uL MPV 10.8 (7.2-11.7) fL Neut % (Auto) 83.7 H (50.0-75.0) % Lymph % (Auto) 11.1 L (20.0-40.0) % [place] % (Auto) 4.7 (0.0-10.0) % Eos % (Auto) 0.1 (0.0-4.0) % Baso % (Auto) 0.4 (0.0-2.0) % Neut # 34.7 H (1.8-7.0) K/uL Lymph # 4.6 H (1.0-4.3) K/uL [place] # 1.9 H (0.0-0.8) K/uL Eos # 0.0 (0.0-0.7) K/uL Baso # 0.2 (0.0-0.2) K/uL Puncture Site pCO2 (35-45) mm/Hg pO2 (80-100) mm/Hg HCO3 (21-28) mmol/L ABG pH (7.35-7.45) ABG Total CO2 (22-28) mmol/L ABG O2 Saturation (95-98) % ABG Base Excess (-2.0-3.0) mmol/L ABG Hemoglobin (11.7-17.4) g/dL ABG Carboxyhemoglobin (0.5-1.5) % POC ABG HHb (Measured) (0.0-5.0) % ABG Methemoglobin (0.0-3.0) % Billy Test A-a O2 Difference mm/Hg Respiratory Index Hgb O2 Saturation (95.0-98.0) % Mechanical Rate FiO2 % Tidal Volume PEEP Crit Value Called To Crit Value Called By Crit Value Read Back Blood Gas Notified Time Sodium 138 (132-148) mmol/L Potassium 4.9 (3.6-5.2) mmol/L Chloride 99 (98-107) mmol/L Carbon Dioxide 10 L* D (22-30) mmol/L Anion Gap 34 H (10-20) BUN 25 H (7-17) mg/dL Creatinine 3.3 H (0.7-1.2) MG/DL Est GFR ( Amer) 17 Est GFR (Non-Af Amer) 14 POC Glucose (mg/dL) 334 H < 20 L* (65-110) mg/dL Random Glucose < 20 L* D (65-105) mg/dL Calcium 7.7 L (8.6-10.4) mg/dl Phosphorus 6.8 H (2.5-4.5) mg/dL Magnesium 2.2 (1.6-2.3) mg/dL Total Bilirubin 6.9 H (0.2-1.3) mg/dL AST 277 H D (14-36) U/L ALT 95 H D (9-52) U/L Alkaline Phosphatase 156 H (38-126) U/L Total Protein 5.5 L (6.3-8.3) g/dL Albumin 2.1 L (3.5-5.0) g/dL Globulin 3.4 (2.2-3.9) gm/dL Albumin/Globulin Ratio 0.6 L (1.0-2.1) 01/06/17 01/06/17 01/05/17 Range/Units 04:25 00:09 20:10 WBC (4.8-10.8) K/uL RBC (3.80-5.20) Mil/uL Hgb (11.0-16.0) g/dL Hct (34.0-47.0) % MCV (81.0-99.0) fL MCH (27.0-31.0) pg MCHC (33.0-37.0) g/dL RDW (11.5-14.5) % Plt Count (130-400) K/uL MPV (7.2-11.7) fL Neut % (Auto) (50.0-75.0) % Lymph % (Auto) (20.0-40.0) % [place] % (Auto) (0.0-10.0) % Eos % (Auto) (0.0-4.0) % Baso % (Auto) (0.0-2.0) % Neut # (1.8-7.0) K/uL Lymph # (1.0-4.3) K/uL [place] # (0.0-0.8) K/uL Eos # (0.0-0.7) K/uL Baso # (0.0-0.2) K/uL Puncture Site Rr Rra pCO2 35 51 H (35-45) mm/Hg pO2 72 L 49 L (80-100) mm/Hg HCO3 7.8 L* 10.9 L (21-28) mmol/L ABG pH 6.98 L* 7.00 L* (7.35-7.45) ABG Total CO2 9.3 L 14.2 L (22-28) mmol/L ABG O2 Saturation 95.6 80.8 L (95-98) % ABG Base Excess -21.9 L -17.6 L (-2.0-3.0) mmol/L ABG Hemoglobin 8.2 L 7.9 L (11.7-17.4) g/dL ABG Carboxyhemoglobin 3.3 H 3.3 H (0.5-1.5) % POC ABG HHb (Measured) 4.2 18.5 H (0.0-5.0) % ABG Methemoglobin 1.4 0.4 (0.0-3.0) % Billy Test Pos Pos A-a O2 Difference 597.0 600.0 mm/Hg Respiratory Index 8.3 12.2 Hgb O2 Saturation 91.1 L 77.8 L (95.0-98.0) % Mechanical Rate 26 26 FiO2 100.0 100.0 % Tidal Volume 550 500 PEEP 5 5 Crit Value Called To Marium cueva rn/ccu Dr millan Crit Value Called By Moises haywood/rt Reubenohjoseph Crit Value Read Back Y Y Blood Gas Notified Time 450 2020 Sodium (132-148) mmol/L Potassium (3.6-5.2) mmol/L Chloride (98-107) mmol/L Carbon Dioxide (22-30) mmol/L Anion Gap (10-20) BUN (7-17) mg/dL Creatinine (0.7-1.2) MG/DL Est GFR ( Amer) Est GFR (Non-Af Amer) POC Glucose (mg/dL) 79 (65-110) mg/dL Random Glucose (65-105) mg/dL Calcium (8.6-10.4) mg/dl Phosphorus (2.5-4.5) mg/dL Magnesium (1.6-2.3) mg/dL Total Bilirubin (0.2-1.3) mg/dL AST (14-36) U/L ALT (9-52) U/L Alkaline Phosphatase (38-126) U/L Total Protein (6.3-8.3) g/dL Albumin (3.5-5.0) g/dL Globulin (2.2-3.9) gm/dL Albumin/Globulin Ratio (1.0-2.1) 01/05/17 01/05/17 01/05/17 Range/Units 17:51 17:30 15:45 WBC (4.8-10.8) K/uL RBC (3.80-5.20) Mil/uL Hgb (11.0-16.0) g/dL Hct (34.0-47.0) % MCV (81.0-99.0) fL MCH (27.0-31.0) pg MCHC (33.0-37.0) g/dL RDW (11.5-14.5) % Plt Count (130-400) K/uL MPV (7.2-11.7) fL Neut % (Auto) (50.0-75.0) % Lymph % (Auto) (20.0-40.0) % [place] % (Auto) (0.0-10.0) % Eos % (Auto) (0.0-4.0) % Baso % (Auto) (0.0-2.0) % Neut # (1.8-7.0) K/uL Lymph # (1.0-4.3) K/uL [place] # (0.0-0.8) K/uL Eos # (0.0-0.7) K/uL Baso # (0.0-0.2) K/uL Puncture Site Rra Rra pCO2 60 H 43 (35-45) mm/Hg pO2 46 L 69 L (80-100) mm/Hg HCO3 11.7 L 19.2 L (21-28) mmol/L ABG pH 6.99 L* 7.26 L (7.35-7.45) ABG Total CO2 16.3 L 20.6 L (22-28) mmol/L ABG O2 Saturation 73.7 L 97.0 (95-98) % ABG Base Excess -16.4 L -7.3 L (-2.0-3.0) mmol/L ABG Hemoglobin 9.1 L 9.0 L (11.7-17.4) g/dL ABG Carboxyhemoglobin 2.4 H 2.7 H (0.5-1.5) % POC ABG HHb (Measured) 25.4 H 2.9 (0.0-5.0) % ABG Methemoglobin 0.9 0.8 (0.0-3.0) % Billy Test Pos Pos A-a O2 Difference 592.0 590.0 mm/Hg Respiratory Index 12.9 8.6 Hgb O2 Saturation 71.2 L 93.7 L (95.0-98.0) % Mechanical Rate 20 20 FiO2 100.0 100.0 % Tidal Volume 500 500 PEEP 5 5 Crit Value Called To Dr bui Crit Value Called By Tigre perkins Crit Value Read Back Y Blood Gas Notified Time 1740 Sodium (132-148) mmol/L Potassium (3.6-5.2) mmol/L Chloride (98-107) mmol/L Carbon Dioxide (22-30) mmol/L Anion Gap (10-20) BUN (7-17) mg/dL Creatinine (0.7-1.2) MG/DL Est GFR ( Amer) Est GFR (Non-Af Amer) POC Glucose (mg/dL) 135 H (65-110) mg/dL Random Glucose (65-105) mg/dL Calcium (8.6-10.4) mg/dl Phosphorus (2.5-4.5) mg/dL Magnesium (1.6-2.3) mg/dL Total Bilirubin (0.2-1.3) mg/dL AST (14-36) U/L ALT (9-52) U/L Alkaline Phosphatase (38-126) U/L Total Protein (6.3-8.3) g/dL Albumin (3.5-5.0) g/dL Globulin (2.2-3.9) gm/dL Albumin/Globulin Ratio (1.0-2.1) Laboratory Results - last 24 hr 01/05/17 01/05/17 01/05/17 15:45 17:30 17:51 WBC RBC Hgb Hct MCV MCH MCHC RDW Plt Count MPV Neut % (Auto) Lymph % (Auto) [place] % (Auto) Eos % (Auto) Baso % (Auto) Neut # Lymph # [place] # Eos # Baso # Puncture Site Rra Rra pCO2 43 60 H pO2 69 L 46 L HCO3 19.2 L 11.7 L ABG pH 7.26 L 6.99 L* ABG Total CO2 20.6 L 16.3 L ABG O2 Saturation 97.0 73.7 L ABG Base Excess -7.3 L -16.4 L ABG Hemoglobin 9.0 L 9.1 L ABG Carboxyhemoglobin 2.7 H 2.4 H POC ABG HHb (Measured) 2.9 25.4 H ABG Methemoglobin 0.8 0.9 Billy Test Pos Pos A-a O2 Difference 590.0 592.0 Respiratory Index 8.6 12.9 Hgb O2 Saturation 93.7 L 71.2 L Mechanical Rate 20 20 FiO2 100.0 100.0 Tidal Volume 500 500 PEEP 5 5 Crit Value Called To Dr bui Crit Value Called By Tigre perkins Crit Value Read Back Y Blood Gas Notified Time 1740 Sodium Potassium Chloride Carbon Dioxide Anion Gap BUN Creatinine Est GFR ( Amer) Est GFR (Non-Af Amer) POC Glucose (mg/dL) 135 H Random Glucose Calcium Phosphorus Magnesium Total Bilirubin AST ALT Alkaline Phosphatase Total Protein Albumin Globulin Albumin/Globulin Ratio 01/05/17 01/06/17 01/06/17 20:10 00:09 04:25 WBC RBC Hgb Hct MCV MCH MCHC RDW Plt Count MPV Neut % (Auto) Lymph % (Auto) [place] % (Auto) Eos % (Auto) Baso % (Auto) Neut # Lymph # [place] # Eos # Baso # Puncture Site Rra Rr pCO2 51 H 35 pO2 49 L 72 L HCO3 10.9 L 7.8 L* ABG pH 7.00 L* 6.98 L* ABG Total CO2 14.2 L 9.3 L ABG O2 Saturation 80.8 L 95.6 ABG Base Excess -17.6 L -21.9 L ABG Hemoglobin 7.9 L 8.2 L ABG Carboxyhemoglobin 3.3 H 3.3 H POC ABG HHb (Measured) 18.5 H 4.2 ABG Methemoglobin 0.4 1.4 Billy Test Pos Pos A-a O2 Difference 600.0 597.0 Respiratory Index 12.2 8.3 Hgb O2 Saturation 77.8 L 91.1 L Mechanical Rate 26 26 FiO2 100.0 100.0 Tidal Volume 500 550 PEEP 5 5 Crit Value Called To Dr monty cueva rn/ccu Crit Value Called By Henrry haywood/rt Crit Value Read Back Y Y Blood Gas Notified Time 2019 450 Sodium Potassium Chloride Carbon Dioxide Anion Gap BUN Creatinine Est GFR ( Amer) Est GFR (Non-Af Amer) POC Glucose (mg/dL) 79 Random Glucose Calcium Phosphorus Magnesium Total Bilirubin AST ALT Alkaline Phosphatase Total Protein Albumin Globulin Albumin/Globulin Ratio 01/06/17 01/06/17 01/06/17 05:38 06:20 06:30 WBC 41.4 H* D RBC 2.86 L Hgb 9.0 L Hct 30.1 L MCV 105.2 H D MCH 31.5 H MCHC 30.0 L RDW 22.2 H Plt Count 51 L MPV 10.8 Neut % (Auto) 83.7 H Lymph % (Auto) 11.1 L [place] % (Auto) 4.7 Eos % (Auto) 0.1 Baso % (Auto) 0.4 Neut # 34.7 H Lymph # 4.6 H [place] # 1.9 H Eos # 0.0 Baso # 0.2 Puncture Site pCO2 pO2 HCO3 ABG pH ABG Total CO2 ABG O2 Saturation ABG Base Excess ABG Hemoglobin ABG Carboxyhemoglobin POC ABG HHb (Measured) ABG Methemoglobin Billy Test A-a O2 Difference Respiratory Index Hgb O2 Saturation Mechanical Rate FiO2 Tidal Volume PEEP Crit Value Called To Crit Value Called By Crit Value Read Back Blood Gas Notified Time Sodium 138 Potassium 4.9 Chloride 99 Carbon Dioxide 10 L* D Anion Gap 34 H BUN 25 H Creatinine 3.3 H Est GFR ( Amer) 17 Est GFR (Non-Af Amer) 14 POC Glucose (mg/dL) < 20 L* 334 H Random Glucose < 20 L* D Calcium 7.7 L Phosphorus 6.8 H Magnesium 2.2 Total Bilirubin 6.9 H AST 277 H D ALT 95 H D Alkaline Phosphatase 156 H Total Protein 5.5 L Albumin 2.1 L Globulin 3.4 Albumin/Globulin Ratio 0.6 L 01/06/17 01/06/17 01/06/17 08:03 09:05 11:14 WBC RBC Hgb Hct MCV MCH MCHC RDW Plt Count MPV Neut % (Auto) Lymph % (Auto) [place] % (Auto) Eos % (Auto) Baso % (Auto) Neut # Lymph # [place] # Eos # Baso # Puncture Site pCO2 pO2 HCO3 ABG pH ABG Total CO2 ABG O2 Saturation ABG Base Excess ABG Hemoglobin ABG Carboxyhemoglobin POC ABG HHb (Measured) ABG Methemoglobin Billy Test A-a O2 Difference Respiratory Index Hgb O2 Saturation Mechanical Rate FiO2 Tidal Volume PEEP Crit Value Called To Crit Value Called By Crit Value Read Back Blood Gas Notified Time Sodium Potassium Chloride Carbon Dioxide Anion Gap BUN Creatinine Est GFR ( Amer) Est GFR (Non-Af Amer) POC Glucose (mg/dL) 91 177 H 43 L Random Glucose Calcium Phosphorus Magnesium Total Bilirubin AST ALT Alkaline Phosphatase Total Protein Albumin Globulin Albumin/Globulin Ratio 01/06/17 01/06/17 01/06/17 11:41 13:02 14:59 WBC RBC Hgb Hct MCV MCH MCHC RDW Plt Count MPV Neut % (Auto) Lymph % (Auto) [place] % (Auto) Eos % (Auto) Baso % (Auto) Neut # Lymph # [place] # Eos # Baso # Puncture Site pCO2 pO2 HCO3 ABG pH ABG Total CO2 ABG O2 Saturation ABG Base Excess ABG Hemoglobin ABG Carboxyhemoglobin POC ABG HHb (Measured) ABG Methemoglobin Billy Test A-a O2 Difference Respiratory Index Hgb O2 Saturation Mechanical Rate FiO2 Tidal Volume PEEP Crit Value Called To Crit Value Called By Crit Value Read Back Blood Gas Notified Time Sodium Potassium Chloride Carbon Dioxide Anion Gap BUN Creatinine Est GFR ( Amer) Est GFR (Non-Af Amer) POC Glucose (mg/dL) 220 H 183 H 185 H Random Glucose Calcium Phosphorus Magnesium Total Bilirubin AST ALT Alkaline Phosphatase Total Protein Albumin Globulin Albumin/Globulin Ratio Assessment/Plan (1) Respiratory failure requiring intubation Current Visit: Yes Status: Acute Comment: Continue ventilatory support Worsening bilateral infiltrate noted On antibiotics per ID Follow-up culture and sensitivity Reduce FiO2 as tolerated and increase PEEP (2) VERONICA (acute kidney injury) Current Visit: Yes Status: Acute Comment: Continue hemodialysis (3) CHF (congestive heart failure) Current Visit: Yes Status: Acute Comment: On MILRINONE DRIP (4) Pneumonia Current Visit: Yes Status: Acute (5) Septic shock Current Visit: Yes Status: Acute Attending/Attestation - Attestation I have personally seen and examined this patient.: Yes I have fully participated in the care of the patient.: Yes I have reviewed all pertinent clinical information: Yes Notes (Text): 01/06/17 15:29 Patient seen and examined in the intensive care unit. Case discussed with house staff in the morning rounds. Remains acidotic and hypotensive On ventilatory support requiring and percent FiO2 Hypotensive on 3 pressors Dialysis catheter inserted in left femoral vein under aseptic conditions on bicarb drip,
[2017-01-06 08:53] VITALS: RESP 26
--- NOTE | 2017-01-06 08:53 | CP.PCM.PN ---
Subjective - Date & Time of Evaluation Date of Evaluation: 01/06/17 Time of Evaluation: 07:50 - Subjective Subjective: Cardiology progress note for Dr Montelongo. Patient still intubated, minimally responsive, on 3 pressors, saturating in the 70-80s on prvc of 100%, with agonal breathing, on neuromuscular kadeem. Objective - Vital Signs/Intake and Output Vital Signs (last 24 hours): Temp Pulse Resp BP Pulse Ox 100.6 F H 111 H 27 H 113/71 83 L 01/06/17 04:00 01/06/17 07:41 01/06/17 07:41 01/06/17 07:41 01/06/17 07:41 Intake and Output: 01/06/17 01/06/17 06:59 18:59 Intake Total 2735.8 215.5 Output Total 5 10 Balance 2730.8 205.5 - Medications Medications: Current Medications Acetaminophen (Tylenol 650mg/20.3ml Solution Ud) 650 mg PO Q4 PRN PRN Reason: fever 101 & above Last Admin: 01/05/17 11:14 Dose: 650 mg Emollient Ointment (Vaseline Oint) 5 gm TOP QID PRN Last Admin: 01/06/17 06:06 Dose: 5 gm Azithromycin 500 mg/ Sodium (Chloride) 250 mls @ 250 mls/hr IVPB DAILY [facility] Last Admin: 01/05/17 12:26 Dose: 250 mls/hr Micafungin Sodium 100 mg/ (Sodium Chloride) 100 mls @ 100 mls/hr IV Q24H [facility] Last Admin: 01/05/17 16:01 Dose: 100 mls/hr Norepinephrine Bitartrate 8 mg (/ Sodium Chloride) 258 mls @ 38.7 mls/hr IV .Q6H40M PRN; Protocol; 20 MCG/MIN PRN Reason: TITRATE PER MD ORDER Last Admin: 01/06/17 04:30 Dose: 56.3 mls/hr Dexmedetomidine HCl 200 mcg/ (Sodium Chloride) 50 mls @ 3.25 mls/hr IVPB TITR PRN; Protocol; 0.2 MCG/KG/HR PRN Reason: Agitation Last Titration: 01/03/17 13:00 Dose: 0 mcg/kg/hr Cefepime HCl (Maxipime Iv 2 Gm Premix) 100 mls @ 200 mls/hr IVPB Q24H [facility] Stop: 01/08/17 10:31 Last Admin: 01/05/17 15:08 Dose: 200 mls/hr Vasopressin 40 units/ Sodium (Chloride) 40 mls @ 0.6 mls/hr IV .Q24H [facility]; 0.01 UNITS/MIN PRN Reason: Protocol Last Admin: 01/05/17 17:27 Dose: 2.4 mls/hr Vancomycin/Sodium Chloride (Vancocin) 200 mls @ 133.333 mls/hr IVPB MWF [facility] Last Admin: 01/04/17 18:34 Dose: 133.333 mls/hr Cisatracurium Besylate 100 mg/ (Dextrose) 250 mls @ 30.55 mls/hr IV .Q8H11M [facility] ; 3 MCG/KG/MIN PRN Reason: Protocol Last Admin: 01/06/17 00:26 Dose: Not Given Phenylephrine HCl 30 mg/ (Dextrose) 253 mls @ 10.12 mls/hr IV .Q24H PRN; Protocol; 20 MCG/MIN PRN Reason: TITRATE PER MD ORDER Last Admin: 01/06/17 04:25 Dose: 10.12 mls/hr Dextrose (Dextrose 10% In Water) 1,000 mls @ 25 mls/hr IV .Q24H [facility] Last Admin: 01/06/17 06:31 Dose: 25 mls/hr Sodium Bicarbonate 150 meq/ (Sodium Chloride) 1,150 mls @ 100 mls/hr IV .[id number] [facility] Last Admin: 01/06/17 06:49 Dose: Not Given Lorazepam (Ativan) 1 mg IVP Q3H PRN PRN Reason: Anxiety Last Admin: 01/05/17 15:20 Dose: 1 mg Nystatin (Nystop Topical Powder) 1 applic TOP BID [facility] Last Admin: 01/05/17 17:59 Dose: 1 appl Pantoprazole Sodium (Protonix Inj) 40 mg IVP DAILY [facility] Last Admin: 01/05/17 09:44 Dose: 40 mg - Labs Labs: 01/06/17 06:30 01/06/17 06:30 PT 17.7 SECONDS (9.7-12.2) H 12/30/16 10:43 INR 1.6 12/30/16 10:43 APTT 34 SECONDS (21-34) D 12/25/16 06:11 - Constitutional Appears: No Acute Distress - Head Exam Head Exam: ATRAUMATIC, NORMAL INSPECTION, NORMOCEPHALIC - Eye Exam Eye Exam: Scleral icterus - ENT Exam ENT Exam: Mucous Membranes Moist Additional comments: ETT, and OGT. - Neck Exam Neck Exam: Normal Inspection - Respiratory Exam Respiratory Exam: Clear to Ausculation Bilateral, NORMAL BREATHING PATTERN. absent: Rales, Rhonchi, Wheezes, Respiratory Distress, Stridor - Cardiovascular Exam Cardiovascular Exam: Tachycardia, REGULAR RHYTHM, RRR, +S1, +S2 - GI/Abdominal Exam GI & Abdominal Exam: Soft, Normal Bowel Sounds. absent: Distended, Firm - Extremities Exam Extremities Exam: Pedal Edema - Neurological Exam Additional comments: Minimally responsive, paralyzed. - Skin Skin Exam: Diaphoretic, Warm Assessment and Plan - Assessment and Plan (Free Text) Assessment: 61 y/o with PMH of Lupus, dilated cardiomyopathy s/p ICD, CVA with left sided residue, htn admitted with: 1) Hypoxemic respiratory failure 2nd to HAP/CHF exacerbation LVEF of 20% with mod-severe pulm htn on echo- s/p ICD interrogation 2) Septic shock- 3) Ecoli UTI 4) Transaminitis 5) VERONICA on HD 6) Thrombocytopenia 7) Anemia 8) VT Plan: S/p ICD interrogation, with normal function, will need replacement due to low battery life, once medically stable. Patient is on pressors ( levophed and vasopressin) and phenylephrine for septic shock. Patient is also on antibiotics and anti-fungal. Patient was started on amiodorone for v-tach. Consider adding lidocaine. Patient continued to be intubated, minimally responsive, on cisatracurium. Also on bicarb drip. Patient seen, examined, case discussed with Dr Montelongo.
[2017-01-06] MEDS: Azithromycin 500 MG in Sodium Chloride 0.9% 250 ML IVPB SCH (09:29)
[2017-01-06] MEDS: Cefepime IV 2 gm in Dextrose 100 ML IVPB SCH (10:59)
--- NOTE | 2017-01-06 12:20 | RAD ---
HISTORY: intubated COMPARISON: 01/05/2017 FINDINGS: LUNGS: Reticular nodular opacities throughout both lungs. PLEURA: Possible small left-sided pleural effusion. CARDIOVASCULAR: Stable cardiomediastinal silhouette. OSSEOUS STRUCTURES: The osseous structures demonstrate degenerative changes. VISUALIZED UPPER ABDOMEN: Upper abdomen is suboptimally evaluated. OTHER FINDINGS: Presumed vascular catheter on the right neck with the distal tip in the proximal right atrium. ETT with the distal tip above the bifurcation of the trachea. Feeding tube with the distal tip coursing below the diaphragm. Left-sided AICD. IMPRESSION: Diffuse reticular nodular opacities throughout both lungs, essentially unchanged.
--- NOTE | 2017-01-06 13:15 | CP.PCM.PN ---
Subjective - Date & Time of Evaluation Date of Evaluation: 01/06/17 Time of Evaluation: 13:13 - Subjective Subjective: Remains on vent On 3 pressors Severely acidemic +oliguria New HD cath in place Objective - Vital Signs/Intake and Output Vital Signs (last 24 hours): Temp Pulse Resp BP Pulse Ox 100.6 F H 108 H 26 H 111/63 85 L 01/06/17 04:00 01/06/17 12:40 01/06/17 12:40 01/06/17 12:40 01/06/17 12:40 Intake and Output: 01/06/17 01/06/17 06:59 18:59 Intake Total 2735.8 1458.8 Output Total 5 10 Balance 2730.8 1448.8 - Medications Medications: Current Medications Acetaminophen (Tylenol 650mg/20.3ml Solution Ud) 650 mg PO Q4 PRN PRN Reason: fever 101 & above Last Admin: 01/05/17 11:14 Dose: 650 mg Emollient Ointment (Vaseline Oint) 5 gm TOP QID PRN Last Admin: 01/06/17 06:06 Dose: 5 gm Azithromycin 500 mg/ Sodium (Chloride) 250 mls @ 250 mls/hr IVPB DAILY [facility] Last Admin: 01/06/17 09:29 Dose: 250 mls/hr Micafungin Sodium 100 mg/ (Sodium Chloride) 100 mls @ 100 mls/hr IV Q24H [facility] Last Admin: 01/05/17 16:01 Dose: 100 mls/hr Norepinephrine Bitartrate 8 mg (/ Sodium Chloride) 258 mls @ 38.7 mls/hr IV .Q6H40M PRN; Protocol; 20 MCG/MIN PRN Reason: TITRATE PER MD ORDER Last Admin: 01/06/17 09:31 Dose: 56.3 mls/hr Dexmedetomidine HCl 200 mcg/ (Sodium Chloride) 50 mls @ 3.25 mls/hr IVPB TITR PRN; Protocol; 0.2 MCG/KG/HR PRN Reason: Agitation Last Titration: 01/03/17 13:00 Dose: 0 mcg/kg/hr Cefepime HCl (Maxipime Iv 2 Gm Premix) 100 mls @ 200 mls/hr IVPB Q24H [facility] Stop: 01/08/17 10:31 Last Admin: 01/06/17 10:59 Dose: 200 mls/hr Vasopressin 40 units/ Sodium (Chloride) 40 mls @ 0.6 mls/hr IV .Q24H [facility]; 0.01 UNITS/MIN PRN Reason: Protocol Last Admin: 01/05/17 17:27 Dose: 2.4 mls/hr Vancomycin/Sodium Chloride (Vancocin) 200 mls @ 133.333 mls/hr IVPB MWF [facility] Last Admin: 01/04/17 18:34 Dose: 133.333 mls/hr Cisatracurium Besylate 100 mg/ (Dextrose) 250 mls @ 30.55 mls/hr IV .Q8H11M [facility] ; 3 MCG/KG/MIN PRN Reason: Protocol Last Admin: 01/06/17 12:22 Dose: 20.37 mls/hr Phenylephrine HCl 30 mg/ (Dextrose) 253 mls @ 10.12 mls/hr IV .Q24H PRN; Protocol; 20 MCG/MIN PRN Reason: TITRATE PER MD ORDER Last Admin: 01/06/17 12:40 Dose: 25 mls/hr Dextrose (Dextrose 10% In Water) 1,000 mls @ 25 mls/hr IV .Q24H [facility] Last Admin: 01/06/17 06:31 Dose: 25 mls/hr Sodium Bicarbonate 150 meq/ (Sodium Chloride) 1,150 mls @ 100 mls/hr IV .[id number] [facility] Last Admin: 01/06/17 06:49 Dose: Not Given Lorazepam (Ativan) 1 mg IVP Q3H PRN PRN Reason: Anxiety Last Admin: 01/05/17 15:20 Dose: 1 mg Nystatin (Nystop Topical Powder) 1 applic TOP BID [facility] Last Admin: 01/06/17 09:29 Dose: 1 appl Pantoprazole Sodium (Protonix Inj) 40 mg IVP DAILY [facility] Last Admin: 01/06/17 09:29 Dose: 40 mg - Labs Labs: 01/06/17 06:30 01/06/17 06:30 PT 17.7 SECONDS (9.7-12.2) H 12/30/16 10:43 INR 1.6 12/30/16 10:43 APTT 34 SECONDS (21-34) D 12/25/16 06:11 - Constitutional Appears: Toxic, In Acute Distress - Head Exam Head Exam: ATRAUMATIC, NORMAL INSPECTION - Neck Exam Neck Exam: Normal Inspection. absent: Tenderness - Respiratory Exam Respiratory Exam: Rhonchi, Respiratory Distress - Cardiovascular Exam Cardiovascular Exam: Tachycardia, +S1 - GI/Abdominal Exam GI & Abdominal Exam: Soft. absent: Tenderness - Extremities Exam Extremities Exam: Normal Inspection. absent: Tenderness - Neurological Exam Neurological Exam: Altered, Motor Sensory Deficit - Skin Skin Exam: Dry Assessment and Plan (1) CHF (congestive heart failure) Status: Acute (2) Lupus (systemic lupus erythematosus) Status: Acute (3) Pneumonia Status: Acute (4) Sepsis Status: Acute (5) Oliguria Status: Acute (6) VERONICA (acute kidney injury) Status: Acute - Assessment and Plan (Free Text) Plan: Can try dialysis; hypotension problematic though Overall poor prognosis
--- NOTE | 2017-01-06 16:56 | CP.PCM.PN ---
Subjective - Date & Time of Evaluation Date of Evaluation: 01/06/17 Time of Evaluation: 10:00 - Subjective Subjective: remains obtunded on vent despite 3 pressors and multiple antibiotics no new cultures Objective - Vital Signs/Intake and Output Vital Signs (last 24 hours): Temp Pulse Resp BP Pulse Ox 99 F 109 H 26 H 128/70 88 L 01/06/17 12:00 01/06/17 16:30 01/06/17 16:30 01/06/17 16:30 01/06/17 16:30 Intake and Output: 01/06/17 01/06/17 06:59 18:59 Intake Total 2735.8 2941.6 Output Total 5 10 Balance 2730.8 2931.6 - Medications Medications: Current Medications Acetaminophen (Tylenol 650mg/20.3ml Solution Ud) 650 mg PO Q4 PRN PRN Reason: fever 101 & above Last Admin: 01/05/17 11:14 Dose: 650 mg Emollient Ointment (Vaseline Oint) 5 gm TOP QID PRN Last Admin: 01/06/17 06:06 Dose: 5 gm Azithromycin 500 mg/ Sodium (Chloride) 250 mls @ 250 mls/hr IVPB DAILY [facility] Last Admin: 01/06/17 09:29 Dose: 250 mls/hr Micafungin Sodium 100 mg/ (Sodium Chloride) 100 mls @ 100 mls/hr IV Q24H [facility] Last Admin: 01/05/17 16:01 Dose: 100 mls/hr Norepinephrine Bitartrate 8 mg (/ Sodium Chloride) 258 mls @ 38.7 mls/hr IV .Q6H40M PRN; Protocol; 20 MCG/MIN PRN Reason: TITRATE PER MD ORDER Last Admin: 01/06/17 09:31 Dose: 56.3 mls/hr Dexmedetomidine HCl 200 mcg/ (Sodium Chloride) 50 mls @ 3.25 mls/hr IVPB TITR PRN; Protocol; 0.2 MCG/KG/HR PRN Reason: Agitation Last Titration: 01/03/17 13:00 Dose: 0 mcg/kg/hr Cefepime HCl (Maxipime Iv 2 Gm Premix) 100 mls @ 200 mls/hr IVPB Q24H [facility] Stop: 01/08/17 10:31 Last Admin: 01/06/17 10:59 Dose: 200 mls/hr Vasopressin 40 units/ Sodium (Chloride) 40 mls @ 0.6 mls/hr IV .Q24H [facility]; 0.01 UNITS/MIN PRN Reason: Protocol Last Admin: 01/05/17 17:27 Dose: 2.4 mls/hr Vancomycin/Sodium Chloride (Vancocin) 200 mls @ 133.333 mls/hr IVPB MWF [facility] Last Admin: 01/04/17 18:34 Dose: 133.333 mls/hr Cisatracurium Besylate 100 mg/ (Dextrose) 250 mls @ 30.55 mls/hr IV .Q8H11M [facility] ; 3 MCG/KG/MIN PRN Reason: Protocol Last Admin: 01/06/17 12:22 Dose: 20.37 mls/hr Phenylephrine HCl 30 mg/ (Dextrose) 253 mls @ 10.12 mls/hr IV .Q24H PRN; Protocol; 20 MCG/MIN PRN Reason: TITRATE PER MD ORDER Last Titration: 01/06/17 15:28 Dose: 74.11 mcg/min Sodium Bicarbonate 150 meq/ (Sodium Chloride) 1,150 mls @ 100 mls/hr IV .[id number] [facility] Last Admin: 01/06/17 14:35 Dose: 100 mls/hr Dextrose (Dextrose 5% In Water 1000 Ml) 1,000 mls @ 25 mls/hr IV .Q24H [facility] Last Admin: 01/06/17 15:03 Dose: 25 mls/hr Lorazepam (Ativan) 1 mg IVP Q3H PRN PRN Reason: Anxiety Last Admin: 01/05/17 15:20 Dose: 1 mg Nystatin (Nystop Topical Powder) 1 applic TOP BID [facility] Last Admin: 01/06/17 09:29 Dose: 1 appl Pantoprazole Sodium (Protonix Inj) 40 mg IVP DAILY [facility] Last Admin: 01/06/17 09:29 Dose: 40 mg - Labs Labs: 01/06/17 06:30 01/06/17 06:30 PT 17.7 SECONDS (9.7-12.2) H 12/30/16 10:43 INR 1.6 12/30/16 10:43 APTT 34 SECONDS (21-34) D 12/25/16 06:11 - Constitutional Appears: Cachectic, Chronically Ill - ENT Exam ENT Exam: Mucous Membranes Dry - Neck Exam Neck Exam: absent: Lymphadenopathy - Respiratory Exam Respiratory Exam: Decreased Breath Sounds, Rhonchi - Cardiovascular Exam Cardiovascular Exam: REGULAR RHYTHM - GI/Abdominal Exam GI & Abdominal Exam: Distended, Soft - Rectal Exam Rectal Exam: Deferred - Exam Exam: NORMAL INSPECTION Assessment and Plan (1) VERONICA (acute kidney injury) Status: Acute (2) Abnormal thyroid blood test Status: Acute (3) CHF (congestive heart failure) Status: Acute (4) Dyspnea Status: Acute (5) HTN (hypertension) Status: Acute (6) Lupus (systemic lupus erythematosus) Status: Acute (7) Pneumonia due to aerobic bacteria Status: Acute (8) Septic shock Status: Acute (9) Respiratory failure Status: Acute (10) Respiratory failure of more than 28 days duration Status: Acute (11) Respiratory failure requiring intubation Status: Acute
--- NOTE | 2017-01-06 18:58 | CP.PCM.PN ---
Subjective - Date & Time of Evaluation Date of Evaluation: 01/06/17 Time of Evaluation: 13:00 - Subjective Subjective: 3rd vasopressor, phenylephrine, started last night; Objective - Vital Signs/Intake and Output Vital Signs (last 24 hours): Temp Pulse Resp BP Pulse Ox 98.8 F 109 H 26 H 130/85 85 L 01/06/17 16:40 01/06/17 18:23 01/06/17 18:23 01/06/17 18:54 01/06/17 18:23 Intake and Output: 01/06/17 01/06/17 06:59 18:59 Intake Total 2735.8 3483.3 Output Total 5 810 Balance 2730.8 2673.3 - Medications Medications: Current Medications Acetaminophen (Tylenol 650mg/20.3ml Solution Ud) 650 mg PO Q4 PRN PRN Reason: fever 101 & above Last Admin: 01/05/17 11:14 Dose: 650 mg Emollient Ointment (Vaseline Oint) 5 gm TOP QID PRN Last Admin: 01/06/17 06:06 Dose: 5 gm Azithromycin 500 mg/ Sodium (Chloride) 250 mls @ 250 mls/hr IVPB DAILY [facility] Last Admin: 01/06/17 09:29 Dose: 250 mls/hr Micafungin Sodium 100 mg/ (Sodium Chloride) 100 mls @ 100 mls/hr IV Q24H [facility] Last Admin: 01/05/17 16:01 Dose: 100 mls/hr Norepinephrine Bitartrate 8 mg (/ Sodium Chloride) 258 mls @ 38.7 mls/hr IV .Q6H40M PRN; Protocol; 20 MCG/MIN PRN Reason: TITRATE PER MD ORDER Last Admin: 01/06/17 18:23 Dose: 56.3 mls/hr Dexmedetomidine HCl 200 mcg/ (Sodium Chloride) 50 mls @ 3.25 mls/hr IVPB TITR PRN; Protocol; 0.2 MCG/KG/HR PRN Reason: Agitation Last Titration: 01/03/17 13:00 Dose: 0 mcg/kg/hr Cefepime HCl (Maxipime Iv 2 Gm Premix) 100 mls @ 200 mls/hr IVPB Q24H [facility] Stop: 01/08/17 10:31 Last Admin: 01/06/17 10:59 Dose: 200 mls/hr Vasopressin 40 units/ Sodium (Chloride) 40 mls @ 0.6 mls/hr IV .Q24H [facility]; 0.01 UNITS/MIN PRN Reason: Protocol Last Admin: 01/06/17 18:04 Dose: 2.4 mls/hr Vancomycin/Sodium Chloride (Vancocin) 200 mls @ 133.333 mls/hr IVPB MWF [facility] Last Admin: 01/04/17 18:34 Dose: 133.333 mls/hr Cisatracurium Besylate 100 mg/ (Dextrose) 250 mls @ 30.55 mls/hr IV .Q8H11M [facility] ; 3 MCG/KG/MIN PRN Reason: Protocol Last Admin: 01/06/17 18:03 Dose: Not Given Phenylephrine HCl 30 mg/ (Dextrose) 253 mls @ 10.12 mls/hr IV .Q24H PRN; Protocol; 20 MCG/MIN PRN Reason: TITRATE PER MD ORDER Last Titration: 01/06/17 15:28 Dose: 74.11 mcg/min Sodium Bicarbonate 150 meq/ (Sodium Chloride) 1,150 mls @ 100 mls/hr IV .[id number] [facility] Last Admin: 01/06/17 18:08 Dose: Not Given Dextrose (Dextrose 5% In Water 1000 Ml) 1,000 mls @ 25 mls/hr IV .Q24H [facility] Last Admin: 01/06/17 15:03 Dose: 25 mls/hr Lorazepam (Ativan) 1 mg IVP Q3H PRN PRN Reason: Anxiety Last Admin: 01/05/17 15:20 Dose: 1 mg Nystatin (Nystop Topical Powder) 1 applic TOP BID [facility] Last Admin: 01/06/17 18:08 Dose: 1 appl Pantoprazole Sodium (Protonix Inj) 40 mg IVP DAILY [facility] Last Admin: 01/06/17 09:29 Dose: 40 mg - Labs Labs: 01/06/17 06:30 01/06/17 06:30 PT 17.7 SECONDS (9.7-12.2) H 12/30/16 10:43 INR 1.6 12/30/16 10:43 APTT 34 SECONDS (21-34) D 12/25/16 06:11 Assessment and Plan (1) CHF (congestive heart failure) Status: Acute (2) Hyperbilirubinemia Status: Acute (3) Pneumonia Status: Acute (4) Septic shock Status: Acute (5) VERONICA (acute kidney injury) Status: Acute
[2017-01-06] MEDS: Vancomycin 1 gm/NS 200 ml 200 ML IVPB SCH (20:30)
[2017-01-06] MEDS: Micafungin 100 MG in Sodium Chloride 0.9% 100 ML IV SCH (21:30)
[2017-01-07] MEDS: Cisatracurium Besylate 100 MG in Dextrose 5% In Water 240 ML IV SCH ×2 (01:00→10:37)
[2017-01-07 04:41] LABS: ABG MECHANICAL RATE 26; ARTERIAL BLOOD HGB O2 SAT 90.8 % (95.0-98.0); ATERIAL BLOOD GAS PEEP 5; DRAW SITE RB; HHB 2.1 % (0.0-5.0); METHEMOGLOBIN 1.1 % (0.0-3.0)
[2017-01-07] MEDS: Phenylephrine 30 MG in Dextrose 5% In Water 250 ML IV PRN ×2 (05:15→08:46)
[2017-01-07] MEDS ORDERED: Dextrose 50% SYRINGE Inj (50 ml) IV STA (05:46)
[2017-01-07] MEDS ORDERED: Dextrose 50% SYRINGE Inj (50 ml) ONE (05:56)
[2017-01-07 06:37] LABS: BASO # 0.2 K/uL (0.0-0.2); BASO % 0.4 % (0.0-2.0); EOS % 0.1 % (0.0-4.0); HEMATOCRIT 25.5 % (34.0-47.0); LYMPH # 4.9 K/uL (1.0-4.3); LYMPH % 11.7 % (20.0-40.0); MEAN CELL VOLUME 103.5 fL (81.0-99.0); MEAN CORPUSCULAR HEMOGLOBIN 30.7 pg (27.0-31.0); MEAN CORPUSCULAR HGB CONC 29.7 g/dL (33.0-37.0); MEAN PLATELET VOLUME 9.9 fL (7.2-11.7); MONO # 1.5 K/uL (0.0-0.8); MONO % 3.6 % (0.0-10.0); NRBC % 6.5 % (0.0-2.0); RED CELL DISTRIBUTION WIDTH 22.7 % (11.5-14.5)
[2017-01-07 06:40] LABS: POTASSIUM 4.2 mmol/L (3.6-5.2)
[2017-01-07 06:42] LABS: ALB/GLOB RATIO 0.5 (1.0-2.1); BILIRUBIN,TOTAL 9.8 mg/dL (0.2-1.3); TOTAL PROTEIN 4.7 g/dL (6.3-8.3)
[2017-01-07 06:43] LABS: CALCIUM 7.1 mg/dl (8.6-10.4); MAGNESIUM 2.1 mg/dL (1.6-2.3)
[2017-01-07 06:48] LABS: WHITE BLOOD COUNT 41.9 K/uL (4.8-10.8)
--- NOTE | 2017-01-07 08:48 | CP.CCUPN ---
CCU Subjective - Physician Review Subjective (Free Text): 12/28/16 20:48 Patient seen and examined at bedside. No acute distress. No acute events overnight per nursing. Patient back on AC/PRVC. Patient's persistent low BP halted attempts at a weaning trial. Patient able to follow commands. 12/29/16 15:52 Patient seen and examined at bedside. Per nursing decreased urine output. Patient began Milrinone drip yesterday at 0.5 mcg/kg/mi. Bp remains hypotensive but stable. 12/30/16 17:37 Patient seen and examined at bedside in no acute distress. Pt is intubated, on Milrinone drip, still low urine output . BP improved. Unable to obtain ROS at this point due to sedation. 12/31/16 18:19 Pt seen and examined at bedside . Patient's presentation appears to be worsening. Pt is intubated with continued low urine output. Current presentation as well as prognosis discussed with family members ( son and daughter-in law). Unable to obtain ROS at this time due to sedation. 01/01/17 08:26 Pt seen and examined at bedside . Patient's presentation remains the same. Pt is intubated with continued low urine output. Unable to obtain ROS at this time due to sedation. Prognosis discusses with son who wants full code status to remain. 01/05/17 12:02 Pt seen and examined in no acute distress. Patient's presentation remains unchanged. Receiving hemodialysis. Pt is intubated with continued low urine output. Unable to obtain ROS at this time due to sedation. Obtained consent for bronchoscopy through son. Son states that he wants us to continue all measures and medical efforts at this time. 01/06/17 08:26 Pt seen and examined in mild distress. Patient's clinical status has not improved. Patient is requiring work to breath even on FiO2 of 100%. Bicarb drip was added on yesterday. An ROS could not be obtained at this time due to patient being intubated and sedated. Dialysis catheter placed in left femoral. Discussed patient status with son who wants full measures taken. 01/07/17 16:14 Pt seen and examined in no acute distress. Patient's clinical status worsened this morning. Severely acidotic with platelets severely decreased. Patient receiving transfusion when code lucy was called due to PEA. Family notified at least twice prior to event regarding patient's status. Son wanted all measures taken. ROS not obtained. Pronouncement of at 11:16AM. Family was notified and grievances provided 01/07/17 16:27 CCU Objective - Vital Signs / Intake & Output Vital Signs (Last 4 hours): Vital Signs Temp Pulse Resp BP Pulse Ox 01/07/17 08:46 83 26 H 72/41 L 75 L 01/07/17 08:15 86 26 H 72/41 L 71 L 01/07/17 08:00 97.8 F 87 26 H 71 L 01/07/17 07:55 87 26 H 71 L 01/07/17 07:45 88 26 H 76/47 L 72 L 01/07/17 07:14 91 H 26 H 83/57 L 73 L 01/07/17 07:00 91 H 26 H 74 L 01/07/17 06:44 92 H 26 H 80/51 L 71 L 01/07/17 06:15 94 H 26 H 97/55 L 01/07/17 06:00 93 H 26 H 01/07/17 05:44 94 H 26 H 87/45 L 64 L 01/07/17 05:15 95 H 26 H 91/52 L 77 L 01/07/17 05:04 95 H 26 H 82/56 L 77 L 01/07/17 05:01 95 H 26 H 82/56 L 77 L 01/07/17 05:00 95 H 26 H 77 L 01/07/17 04:54 95 H 26 H 78 L Intake and Output (Last 8hrs): Intake & Output 01/06/17 01/07/17 01/07/17 22:59 06:59 14:59 Intake Total 2165.3 2201.5 596.0 Output Total 800 0 10 Balance 1365.3 2201.5 586.0 Weight 153 lb Intake: IV 75 Intake, IV Amount 2165.3 2126.5 596.0 Right Medial Port 300.3 362.5 165 Internal Jugular Right Distal Port 132.8 132.8 33.2 Internal Jugular Right Distal Port 450.4 450.4 112.6 Right Femoral 800 800 100 Right Internal Jugular 163.2 163.2 30.6 Right Medial Port 18.6 17.6 4.6 Right Distal Port Femoral 300 200 25 Left Femoral 25 Left Distal Port Femoral 100 Tube Feeding 0 0 0 Output: Gastric Amount 800 Stomach 800 Urine 0 0 10 Urethral (Noble) 0 0 10 - Physical Exam Head: Positive for: Atraumatic, Normocephalic Pupils: Positive for: PERRL Extroacular Muscles: Positive for: EOMI Conjunctiva: Positive for: Normal Mouth: Positive for: Moist Mucous Membranes Pharnyx: Positive for: Other (intubated, OG tube) Nose (External): Positive for: Atraumatic Respiratory/Chest: Positive for: Good Air Exchange, Other (intubated) Cardiovascular: Positive for: Normal S1, S2. Negative for: Murmurs Abdomen: Positive for: Normal Bowel Sounds. Negative for: Tenderness, Distention Genitourinary/Pelvic Exam: Positive for: Other (noble in place) Upper Extremity: Positive for: Other (scratches to upper extremities noted) Lower Extremity: Positive for: Other (1+ pitting edema to bilateral lower extremities ) Neurological: Positive for: Other (responsive to pain, corneal reflex, gag and cough reflexes intact, pupils reactive to light) Skin: Positive for: Warm, Dry, Abrasion. Negative for: Normal Color Psychiatric: Positive for: Alert - Medications Active Medications: Active Medications Generic Name Dose Route Start Last Admin Trade Name Freq PRN Reason Stop Dose Admin Acetaminophen 650 mg 01/05/17 02:31 01/05/17 11:14 Tylenol 650mg/20.3ml Solution Ud PO 650 mg Q4 PRN Administration fever 101 & above Emollient Ointment 5 gm 12/27/16 21:16 01/06/17 06:06 Vaseline Oint TOP 5 gm QID PRN Administration Azithromycin 500 mg/ Sodium 250 mls @ 250 mls/hr 12/23/16 10:00 01/06/17 09:29 Chloride IVPB 250 mls/hr DAILY LINN Administration Micafungin Sodium 100 mg/ 100 mls @ 100 mls/hr 01/01/17 16:30 01/06/17 21:30 Sodium Chloride IV 100 mls/hr Q24H LINN Administration Norepinephrine Bitartrate 8 mg 258 mls @ 38.7 mls/hr 01/02/17 23:30 01/07/17 05 :01 / Sodium Chloride IV 56.3 mls/hr .[id number] PRN Administration TITRATE PER MD ORDER Protocol 20 MCG/MIN Dexmedetomidine HCl 200 mcg/ 50 mls @ 3.25 mls/hr 01/03/17 09:58 01/03/17 13:00 Sodium Chloride IVPB 0 mcg/kg/hr TITR PRN Titration Agitation Protocol 0.2 MCG/KG/HR Cefepime HCl 100 mls @ 200 mls/hr 01/03/17 10:30 01/06/17 10:59 Maxipime Iv 2 Gm Premix IVPB 01/08/17 10:31 200 mls/hr Q24H LINN Administration Vasopressin 40 units/ Sodium 40 mls @ 0.6 mls/hr 01/03/17 16:15 01/06/17 18:04 Chloride IV 2.4 mls/hr .Q24H LINN Administration Protocol 0.01 UNITS/MIN Vancomycin/Sodium Chloride 200 mls @ 133.333 mls/hr 01/04/17 13:00 01/06/17 20: 30 Vancocin IVPB 133.333 mls/hr MWF LINN Administration Cisatracurium Besylate 100 mg/ 250 mls @ 30.55 mls/hr 01/05/17 16:15 01/07/17 08:24 Dextrose IV 0 mcg/kg/min .[id number] LINN Titration Protocol 3 MCG/KG/MIN Phenylephrine HCl 30 mg/ 253 mls @ 10.12 mls/hr 01/06/17 03:48 01/07/17 08:46 Dextrose IV 91.08 mls/hr .Q24H PRN Administration TITRATE PER MD ORDER Protocol 20 MCG/MIN Sodium Bicarbonate 150 meq/ 1,150 mls @ 100 mls/hr 01/06/17 06:29 01/07/17 08: 26 Sodium Chloride IV Not Given .[id number] LINN Dextrose 1,000 mls @ 25 mls/hr 01/07/17 09:00 01/07/17 08:12 Dextrose 10% In Water IV 25 mls/hr .Q24H LINN Administration Lorazepam 1 mg 01/01/17 20:56 01/05/17 15:20 Ativan IVP 1 mg Q3H PRN Administration Anxiety Nystatin 1 applic 01/01/17 10:15 01/06/17 18:08 Nystop Topical Powder TOP 1 appl BID LINN Administration Pantoprazole Sodium 40 mg 12/30/16 10:00 01/06/17 09:29 Protonix Inj IVP 40 mg DAILY LINN Administration - Patient Studies Lab Studies: Microbiology Studies 12/29/16 08:55 Mycobacterial Culture - Preliminary Other: Please Indicate Lab Studies 01/07/17 01/07/17 01/07/17 Range/Units 08:02 06:31 06:25 WBC 41.9 H* (4.8-10.8) K/uL RBC 2.46 L (3.80-5.20) Mil/uL Hgb 7.6 L (11.0-16.0) g/dL Hct 25.5 L (34.0-47.0) % MCV 103.5 H (81.0-99.0) fL MCH 30.7 (27.0-31.0) pg MCHC 29.7 L (33.0-37.0) g/dL RDW 22.7 H (11.5-14.5) % Plt Count 16 L* D (130-400) K/uL MPV 9.9 (7.2-11.7) fL Neut % (Auto) 84.2 H (50.0-75.0) % Lymph % (Auto) 11.7 L (20.0-40.0) % [place] % (Auto) 3.6 (0.0-10.0) % Eos % (Auto) 0.1 (0.0-4.0) % Baso % (Auto) 0.4 (0.0-2.0) % Neut # 35.3 H (1.8-7.0) K/uL Lymph # 4.9 H (1.0-4.3) K/uL [place] # 1.5 H (0.0-0.8) K/uL Eos # 0.0 (0.0-0.7) K/uL Baso # 0.2 (0.0-0.2) K/uL Puncture Site pCO2 (35-45) mm/Hg pO2 (80-100) mm/Hg HCO3 (21-28) mmol/L ABG pH (7.35-7.45) ABG Total CO2 (22-28) mmol/L ABG O2 Saturation (95-98) % ABG Base Excess (-2.0-3.0) mmol/L ABG Hemoglobin (11.7-17.4) g/dL ABG Carboxyhemoglobin (0.5-1.5) % POC ABG HHb (Measured) (0.0-5.0) % ABG Methemoglobin (0.0-3.0) % Billy Test A-a O2 Difference mm/Hg Respiratory Index Hgb O2 Saturation (95.0-98.0) % Mechanical Rate FiO2 % Tidal Volume PEEP Crit Value Called To Crit Value Called By Crit Value Read Back Blood Gas Notified Time Sodium 136 (132-148) mmol/L Potassium 4.2 (3.6-5.2) mmol/L Chloride 96 L (98-107) mmol/L Carbon Dioxide 10 L* (22-30) mmol/L Anion Gap 34 H (10-20) BUN 16 (7-17) mg/dL Creatinine 2.2 H (0.7-1.2) MG/DL Est GFR ( Amer) 28 Est GFR (Non-Af Amer) 23 POC Glucose (mg/dL) 90 248 H (65-110) mg/dL Random Glucose 27 L* D (65-105) mg/dL Calcium 7.1 L (8.6-10.4) mg/dl Phosphorus 6.0 H (2.5-4.5) mg/dL Magnesium 2.1 (1.6-2.3) mg/dL Total Bilirubin 9.8 H (0.2-1.3) mg/dL AST 704 H D (14-36) U/L ALT 197 H D (9-52) U/L Alkaline Phosphatase 193 H D (38-126) U/L Total Protein 4.7 L (6.3-8.3) g/dL Albumin 1.6 L D (3.5-5.0) g/dL Globulin 3.1 (2.2-3.9) gm/dL Albumin/Globulin Ratio 0.5 L (1.0-2.1) 01/07/17 01/07/17 01/07/17 Range/Units 05:36 04:30 00:39 WBC (4.8-10.8) K/uL RBC (3.80-5.20) Mil/uL Hgb (11.0-16.0) g/dL Hct (34.0-47.0) % MCV (81.0-99.0) fL MCH (27.0-31.0) pg MCHC (33.0-37.0) g/dL RDW (11.5-14.5) % Plt Count (130-400) K/uL MPV (7.2-11.7) fL Neut % (Auto) (50.0-75.0) % Lymph % (Auto) (20.0-40.0) % [place] % (Auto) (0.0-10.0) % Eos % (Auto) (0.0-4.0) % Baso % (Auto) (0.0-2.0) % Neut # (1.8-7.0) K/uL Lymph # (1.0-4.3) K/uL [place] # (0.0-0.8) K/uL Eos # (0.0-0.7) K/uL Baso # (0.0-0.2) K/uL Puncture Site Rb pCO2 34 L (35-45) mm/Hg pO2 69 L (80-100) mm/Hg HCO3 9.1 L* (21-28) mmol/L ABG pH 7.03 L* (7.35-7.45) ABG Total CO2 10.0 L (22-28) mmol/L ABG O2 Saturation 97.7 (95-98) % ABG Base Excess -20.2 L (-2.0-3.0) mmol/L ABG Hemoglobin 7.5 L (11.7-17.4) g/dL ABG Carboxyhemoglobin 6.0 H (0.5-1.5) % POC ABG HHb (Measured) 2.1 (0.0-5.0) % ABG Methemoglobin 1.1 (0.0-3.0) % Billy Test Na A-a O2 Difference 602.0 mm/Hg Respiratory Index 8.7 Hgb O2 Saturation 90.8 L (95.0-98.0) % Mechanical Rate 26 FiO2 100.0 % Tidal Volume 550 PEEP 5 Crit Value Called To Marium cueva rn/ccu Crit Value Called By Moises haywood/rt Crit Value Read Back Y Blood Gas Notified Time 450 Sodium (132-148) mmol/L Potassium (3.6-5.2) mmol/L Chloride (98-107) mmol/L Carbon Dioxide (22-30) mmol/L Anion Gap (10-20) BUN (7-17) mg/dL Creatinine (0.7-1.2) MG/DL Est GFR ( Amer) Est GFR (Non-Af Amer) POC Glucose (mg/dL) 28 L* (65-110) mg/dL Random Glucose 65 (65-105) mg/dL Calcium (8.6-10.4) mg/dl Phosphorus (2.5-4.5) mg/dL Magnesium (1.6-2.3) mg/dL Total Bilirubin (0.2-1.3) mg/dL AST (14-36) U/L ALT (9-52) U/L Alkaline Phosphatase (38-126) U/L Total Protein (6.3-8.3) g/dL Albumin (3.5-5.0) g/dL Globulin (2.2-3.9) gm/dL Albumin/Globulin Ratio (1.0-2.1) 01/07/17 01/06/17 01/06/17 Range/Units 00:24 17:47 14:59 WBC (4.8-10.8) K/uL RBC (3.80-5.20) Mil/uL Hgb (11.0-16.0) g/dL Hct (34.0-47.0) % MCV (81.0-99.0) fL MCH (27.0-31.0) pg MCHC (33.0-37.0) g/dL RDW (11.5-14.5) % Plt Count (130-400) K/uL MPV (7.2-11.7) fL Neut % (Auto) (50.0-75.0) % Lymph % (Auto) (20.0-40.0) % [place] % (Auto) (0.0-10.0) % Eos % (Auto) (0.0-4.0) % Baso % (Auto) (0.0-2.0) % Neut # (1.8-7.0) K/uL Lymph # (1.0-4.3) K/uL [place] # (0.0-0.8) K/uL Eos # (0.0-0.7) K/uL Baso # (0.0-0.2) K/uL Puncture Site pCO2 (35-45) mm/Hg pO2 (80-100) mm/Hg HCO3 (21-28) mmol/L ABG pH (7.35-7.45) ABG Total CO2 (22-28) mmol/L ABG O2 Saturation (95-98) % ABG Base Excess (-2.0-3.0) mmol/L ABG Hemoglobin (11.7-17.4) g/dL ABG Carboxyhemoglobin (0.5-1.5) % POC ABG HHb (Measured) (0.0-5.0) % ABG Methemoglobin (0.0-3.0) % Billy Test A-a O2 Difference mm/Hg Respiratory Index Hgb O2 Saturation (95.0-98.0) % Mechanical Rate FiO2 % Tidal Volume PEEP Crit Value Called To Crit Value Called By Crit Value Read Back Blood Gas Notified Time Sodium (132-148) mmol/L Potassium (3.6-5.2) mmol/L Chloride (98-107) mmol/L Carbon Dioxide (22-30) mmol/L Anion Gap (10-20) BUN (7-17) mg/dL Creatinine (0.7-1.2) MG/DL Est GFR ( Amer) Est GFR (Non-Af Amer) POC Glucose (mg/dL) < 20 L* 137 H 185 H (65-110) mg/dL Random Glucose (65-105) mg/dL Calcium (8.6-10.4) mg/dl Phosphorus (2.5-4.5) mg/dL Magnesium (1.6-2.3) mg/dL Total Bilirubin (0.2-1.3) mg/dL AST (14-36) U/L ALT (9-52) U/L Alkaline Phosphatase (38-126) U/L Total Protein (6.3-8.3) g/dL Albumin (3.5-5.0) g/dL Globulin (2.2-3.9) gm/dL Albumin/Globulin Ratio (1.0-2.1) 03/22/17 03/22/17 03/22/17 Range/Units 13:02 11:41 11:14 WBC (4.8-10.8) K/uL RBC (3.80-5.20) Mil/uL Hgb (11.0-16.0) g/dL Hct (34.0-47.0) % MCV (81.0-99.0) fL MCH (27.0-31.0) pg MCHC (33.0-37.0) g/dL RDW (11.5-14.5) % Plt Count (130-400) K/uL MPV (7.2-11.7) fL Neut % (Auto) (50.0-75.0) % Lymph % (Auto) (20.0-40.0) % [place] % (Auto) (0.0-10.0) % Eos % (Auto) (0.0-4.0) % Baso % (Auto) (0.0-2.0) % Neut # (1.8-7.0) K/uL Lymph # (1.0-4.3) K/uL [place] # (0.0-0.8) K/uL Eos # (0.0-0.7) K/uL Baso # (0.0-0.2) K/uL Puncture Site pCO2 (35-45) mm/Hg pO2 (80-100) mm/Hg HCO3 (21-28) mmol/L ABG pH (7.35-7.45) ABG Total CO2 (22-28) mmol/L ABG O2 Saturation (95-98) % ABG Base Excess (-2.0-3.0) mmol/L ABG Hemoglobin (11.7-17.4) g/dL ABG Carboxyhemoglobin (0.5-1.5) % POC ABG HHb (Measured) (0.0-5.0) % ABG Methemoglobin (0.0-3.0) % Billy Test A-a O2 Difference mm/Hg Respiratory Index Hgb O2 Saturation (95.0-98.0) % Mechanical Rate FiO2 % Tidal Volume PEEP Crit Value Called To Crit Value Called By Crit Value Read Back Blood Gas Notified Time Sodium (132-148) mmol/L Potassium (3.6-5.2) mmol/L Chloride (98-107) mmol/L Carbon Dioxide (22-30) mmol/L Anion Gap (10-20) BUN (7-17) mg/dL Creatinine (0.7-1.2) MG/DL Est GFR ( Amer) Est GFR (Non-Af Amer) POC Glucose (mg/dL) 183 H 220 H 43 L (65-110) mg/dL Random Glucose (65-105) mg/dL Calcium (8.6-10.4) mg/dl Phosphorus (2.5-4.5) mg/dL Magnesium (1.6-2.3) mg/dL Total Bilirubin (0.2-1.3) mg/dL AST (14-36) U/L ALT (9-52) U/L Alkaline Phosphatase (38-126) U/L Total Protein (6.3-8.3) g/dL Albumin (3.5-5.0) g/dL Globulin (2.2-3.9) gm/dL Albumin/Globulin Ratio (1.0-2.1) 01/06/17 Range/Units 09:05 WBC (4.8-10.8) K/uL RBC (3.80-5.20) Mil/uL Hgb (11.0-16.0) g/dL Hct (34.0-47.0) % MCV (81.0-99.0) fL MCH (27.0-31.0) pg MCHC (33.0-37.0) g/dL RDW (11.5-14.5) % Plt Count (130-400) K/uL MPV (7.2-11.7) fL Neut % (Auto) (50.0-75.0) % Lymph % (Auto) (20.0-40.0) % [place] % (Auto) (0.0-10.0) % Eos % (Auto) (0.0-4.0) % Baso % (Auto) (0.0-2.0) % Neut # (1.8-7.0) K/uL Lymph # (1.0-4.3) K/uL [place] # (0.0-0.8) K/uL Eos # (0.0-0.7) K/uL Baso # (0.0-0.2) K/uL Puncture Site pCO2 (35-45) mm/Hg pO2 (80-100) mm/Hg HCO3 (21-28) mmol/L ABG pH (7.35-7.45) ABG Total CO2 (22-28) mmol/L ABG O2 Saturation (95-98) % ABG Base Excess (-2.0-3.0) mmol/L ABG Hemoglobin (11.7-17.4) g/dL ABG Carboxyhemoglobin (0.5-1.5) % POC ABG HHb (Measured) (0.0-5.0) % ABG Methemoglobin (0.0-3.0) % Billy Test A-a O2 Difference mm/Hg Respiratory Index Hgb O2 Saturation (95.0-98.0) % Mechanical Rate FiO2 % Tidal Volume PEEP Crit Value Called To Crit Value Called By Crit Value Read Back Blood Gas Notified Time Sodium (132-148) mmol/L Potassium (3.6-5.2) mmol/L Chloride (98-107) mmol/L Carbon Dioxide (22-30) mmol/L Anion Gap (10-20) BUN (7-17) mg/dL Creatinine (0.7-1.2) MG/DL Est GFR ( Amer) Est GFR (Non-Af Amer) POC Glucose (mg/dL) 177 H (65-110) mg/dL Random Glucose (65-105) mg/dL Calcium (8.6-10.4) mg/dl Phosphorus (2.5-4.5) mg/dL Magnesium (1.6-2.3) mg/dL Total Bilirubin (0.2-1.3) mg/dL AST (14-36) U/L ALT (9-52) U/L Alkaline Phosphatase (38-126) U/L Total Protein (6.3-8.3) g/dL Albumin (3.5-5.0) g/dL Globulin (2.2-3.9) gm/dL Albumin/Globulin Ratio (1.0-2.1) Laboratory Results - last 24 hr 01/06/17 01/06/17 01/06/17 09:05 11:14 11:41 WBC RBC Hgb Hct MCV MCH MCHC RDW Plt Count MPV Neut % (Auto) Lymph % (Auto) [place] % (Auto) Eos % (Auto) Baso % (Auto) Neut # Lymph # [place] # Eos # Baso # Puncture Site pCO2 pO2 HCO3 ABG pH ABG Total CO2 ABG O2 Saturation ABG Base Excess ABG Hemoglobin ABG Carboxyhemoglobin POC ABG HHb (Measured) ABG Methemoglobin Billy Test A-a O2 Difference Respiratory Index Hgb O2 Saturation Mechanical Rate FiO2 Tidal Volume PEEP Crit Value Called To Crit Value Called By Crit Value Read Back Blood Gas Notified Time Sodium Potassium Chloride Carbon Dioxide Anion Gap BUN Creatinine Est GFR ( Amer) Est GFR (Non-Af Amer) POC Glucose (mg/dL) 177 H 43 L 220 H Random Glucose Calcium Phosphorus Magnesium Total Bilirubin AST ALT Alkaline Phosphatase Total Protein Albumin Globulin Albumin/Globulin Ratio 01/06/17 01/06/17 01/06/17 13:02 14:59 17:47 WBC RBC Hgb Hct MCV MCH MCHC RDW Plt Count MPV Neut % (Auto) Lymph % (Auto) [place] % (Auto) Eos % (Auto) Baso % (Auto) Neut # Lymph # [place] # Eos # Baso # Puncture Site pCO2 pO2 HCO3 ABG pH ABG Total CO2 ABG O2 Saturation ABG Base Excess ABG Hemoglobin ABG Carboxyhemoglobin POC ABG HHb (Measured) ABG Methemoglobin Billy Test A-a O2 Difference Respiratory Index Hgb O2 Saturation Mechanical Rate FiO2 Tidal Volume PEEP Crit Value Called To Crit Value Called By Crit Value Read Back Blood Gas Notified Time Sodium Potassium Chloride Carbon Dioxide Anion Gap BUN Creatinine Est GFR ( Amer) Est GFR (Non-Af Amer) POC Glucose (mg/dL) 183 H 185 H 137 H Random Glucose Calcium Phosphorus Magnesium Total Bilirubin AST ALT Alkaline Phosphatase Total Protein Albumin Globulin Albumin/Globulin Ratio 01/07/17 01/07/17 01/07/17 00:24 00:39 04:30 WBC RBC Hgb Hct MCV MCH MCHC RDW Plt Count MPV Neut % (Auto) Lymph % (Auto) [place] % (Auto) Eos % (Auto) Baso % (Auto) Neut # Lymph # [place] # Eos # Baso # Puncture Site Rb pCO2 34 L pO2 69 L HCO3 9.1 L* ABG pH 7.03 L* ABG Total CO2 10.0 L ABG O2 Saturation 97.7 ABG Base Excess -20.2 L ABG Hemoglobin 7.5 L ABG Carboxyhemoglobin 6.0 H POC ABG HHb (Measured) 2.1 ABG Methemoglobin 1.1 Billy Test Na A-a O2 Difference 602.0 Respiratory Index 8.7 Hgb O2 Saturation 90.8 L Mechanical Rate 26 FiO2 100.0 Tidal Volume 550 PEEP 5 Crit Value Called To Marium cueva rn/ccu Crit Value Called By Moises haywood/rt Crit Value Read Back Y Blood Gas Notified Time 450 Sodium Potassium Chloride Carbon Dioxide Anion Gap BUN Creatinine Est GFR ( Amer) Est GFR (Non-Af Amer) POC Glucose (mg/dL) < 20 L* Random Glucose 65 Calcium Phosphorus Magnesium Total Bilirubin AST ALT Alkaline Phosphatase Total Protein Albumin Globulin Albumin/Globulin Ratio 01/07/17 01/07/17 01/07/17 05:36 06:25 06:31 WBC 41.9 H* RBC 2.46 L Hgb 7.6 L Hct 25.5 L MCV 103.5 H MCH 30.7 MCHC 29.7 L RDW 22.7 H Plt Count 16 L* D MPV 9.9 Neut % (Auto) 84.2 H Lymph % (Auto) 11.7 L [place] % (Auto) 3.6 Eos % (Auto) 0.1 Baso % (Auto) 0.4 Neut # 35.3 H Lymph # 4.9 H [place] # 1.5 H Eos # 0.0 Baso # 0.2 Puncture Site pCO2 pO2 HCO3 ABG pH ABG Total CO2 ABG O2 Saturation ABG Base Excess ABG Hemoglobin ABG Carboxyhemoglobin POC ABG HHb (Measured) ABG Methemoglobin Billy Test A-a O2 Difference Respiratory Index Hgb O2 Saturation Mechanical Rate FiO2 Tidal Volume PEEP Crit Value Called To Crit Value Called By Crit Value Read Back Blood Gas Notified Time Sodium 136 Potassium 4.2 Chloride 96 L Carbon Dioxide 10 L* Anion Gap 34 H BUN 16 Creatinine 2.2 H Est GFR ( Amer) 28 Est GFR (Non-Af Amer) 23 POC Glucose (mg/dL) 28 L* 248 H Random Glucose 27 L* D Calcium 7.1 L Phosphorus 6.0 H Magnesium 2.1 Total Bilirubin 9.8 H AST 704 H D ALT 197 H D Alkaline Phosphatase 193 H D Total Protein 4.7 L Albumin 1.6 L D Globulin 3.1 Albumin/Globulin Ratio 0.5 L 01/07/17 08:02 WBC RBC Hgb Hct MCV MCH MCHC RDW Plt Count MPV Neut % (Auto) Lymph % (Auto) [place] % (Auto) Eos % (Auto) Baso % (Auto) Neut # Lymph # [place] # Eos # Baso # Puncture Site pCO2 pO2 HCO3 ABG pH ABG Total CO2 ABG O2 Saturation ABG Base Excess ABG Hemoglobin ABG Carboxyhemoglobin POC ABG HHb (Measured) ABG Methemoglobin Billy Test A-a O2 Difference Respiratory Index Hgb O2 Saturation Mechanical Rate FiO2 Tidal Volume PEEP Crit Value Called To Crit Value Called By Crit Value Read Back Blood Gas Notified Time Sodium Potassium Chloride Carbon Dioxide Anion Gap BUN Creatinine Est GFR ( Amer) Est GFR (Non-Af Amer) POC Glucose (mg/dL) 90 Random Glucose Calcium Phosphorus Magnesium Total Bilirubin AST ALT Alkaline Phosphatase Total Protein Albumin Globulin Albumin/Globulin Ratio Fingerstick Blood Sugar Results: 28 Review of Systems - Review of Systems Review of Systems: as noted in subjective Assessment/Plan - Assessment and Plan (Free Text) Assessment: Pt is 61F with extensive medical history pertinent for lupus, heart failure with AICD, stroke with left-sided deficit, and HTN admitted to the ICU s/p agonal breathing requiring intubation on medical floor. Patient being treated for sepsis likely secondary to aspiration pneumonia. Patient metabolic status worsening secondary to underlying sepsis and worsening kidney function. Today-> worsening metabolic acidosis; decreased platelets. While being transfused blood products- MARANDA AYALA called at 11:04AM for PEA. ACLS protocol initiated with CPR and Epinephrine x4 given. Pronouncement of at 11:16AM Plan: Neuro: Not sedated, minimally responsive History of CVA with residual weakness Head CT: No evidence of acute intracranial hemorrhage, acute territorial infarct , mass effect or midline shift. Moderate-size encephalomalacia at the left temporal parietal lobe suggestive of chronic left MCA territory infarct. Moderate atrophy and white matter changes. CVS: Patient still on 3 pressors, on bicarb drip, and amiodorone. MARNADA ayala called at 11:04 AM for PEA ACLS protocol initiated CPR with 4 rounds of Epi Pronouncement of - 11:16AM Pulm: Agonal breathing noted since 01/05/17 ( worsening) Worsening metabolic acidosis GI: OG tube, receiving feeds, Peptamen at goal Heme: Thromobocytopenia 16- was transfusing 1 unit platelets prior to CODE BLUE. Blood noted in ETT tube in the AM per nursing Hgb decreased to 7.6- was to be transfused 2 units Nephro: Acute renal failure - pt on dialysis. HD on 01/06/17 Catheters replaced 01/06/17 ID: Worsening leukocytosis (WBC: 41.9) Prophylaxis: Protonix 40mg IVP daily DVT chemical anticoagulants held due to thrombocytopenia and bleed. Son notified and aware. Grievances and pastoral support offered. Primary attending notified.
--- NOTE | 2017-01-07 09:44 | CP.PCM.PN ---
<Eugenia Barriga - Last Filed: 01/07/17 10:06> Subjective - Date & Time of Evaluation Date of Evaluation: 01/07/17 Time of Evaluation: 08:05 - Subjective Subjective: Cardiology progress note for Dr Montelongo. Patient still intubated, non responsive to deep chest rubs, and verbal commands. Patient with agonal breathing, on prvc at 100% fio2, saturating in the 70s. Objective - Vital Signs/Intake and Output Vital Signs (last 24 hours): Temp Pulse Resp BP Pulse Ox 97.8 F 81 26 H 59/34 L 81 L 01/07/17 08:00 01/07/17 09:31 01/07/17 09:31 01/07/17 09:31 01/07/17 09:31 Intake and Output: 01/07/17 01/07/17 06:59 18:59 Intake Total 3333.7 596.0 Output Total 0 10 Balance 3333.7 586.0 - Medications Medications: Current Medications Acetaminophen (Tylenol 650mg/20.3ml Solution Ud) 650 mg PO Q4 PRN PRN Reason: fever 101 & above Last Admin: 01/05/17 11:14 Dose: 650 mg Emollient Ointment (Vaseline Oint) 5 gm TOP QID PRN Last Admin: 01/06/17 06:06 Dose: 5 gm Azithromycin 500 mg/ Sodium (Chloride) 250 mls @ 250 mls/hr IVPB DAILY [facility] Last Admin: 01/06/17 09:29 Dose: 250 mls/hr Micafungin Sodium 100 mg/ (Sodium Chloride) 100 mls @ 100 mls/hr IV Q24H [facility] Last Admin: 01/06/17 21:30 Dose: 100 mls/hr Norepinephrine Bitartrate 8 mg (/ Sodium Chloride) 258 mls @ 38.7 mls/hr IV .Q6H40M PRN; Protocol; 20 MCG/MIN PRN Reason: TITRATE PER MD ORDER Last Admin: 01/07/17 05:01 Dose: 56.3 mls/hr Dexmedetomidine HCl 200 mcg/ (Sodium Chloride) 50 mls @ 3.25 mls/hr IVPB TITR PRN; Protocol; 0.2 MCG/KG/HR PRN Reason: Agitation Last Titration: 01/03/17 13:00 Dose: 0 mcg/kg/hr Cefepime HCl (Maxipime Iv 2 Gm Premix) 100 mls @ 200 mls/hr IVPB Q24H [facility] Stop: 01/08/17 10:31 Last Admin: 01/06/17 10:59 Dose: 200 mls/hr Vasopressin 40 units/ Sodium (Chloride) 40 mls @ 0.6 mls/hr IV .Q24H [facility]; 0.01 UNITS/MIN PRN Reason: Protocol Last Admin: 01/07/17 09:31 Dose: 2.4 mls/hr Vancomycin/Sodium Chloride (Vancocin) 200 mls @ 133.333 mls/hr IVPB MWF [facility] Last Admin: 01/06/17 20:30 Dose: 133.333 mls/hr Cisatracurium Besylate 100 mg/ (Dextrose) 250 mls @ 30.55 mls/hr IV .Q8H11M [facility] ; 3 MCG/KG/MIN PRN Reason: Protocol Last Titration: 01/07/17 08:24 Dose: 0 mcg/kg/min Phenylephrine HCl 30 mg/ (Dextrose) 253 mls @ 10.12 mls/hr IV .Q24H PRN; Protocol; 20 MCG/MIN PRN Reason: TITRATE PER MD ORDER Last Admin: 01/07/17 08:46 Dose: 91.08 mls/hr Sodium Bicarbonate 150 meq/ (Sodium Chloride) 1,150 mls @ 100 mls/hr IV .[id number] [facility] Last Admin: 01/07/17 08:26 Dose: Not Given Dextrose (Dextrose 10% In Water) 1,000 mls @ 25 mls/hr IV .Q24H [facility] Last Admin: 01/07/17 08:12 Dose: 25 mls/hr Lorazepam (Ativan) 1 mg IVP Q3H PRN PRN Reason: Anxiety Last Admin: 01/05/17 15:20 Dose: 1 mg Nystatin (Nystop Topical Powder) 1 applic TOP BID [facility] Last Admin: 01/06/17 18:08 Dose: 1 appl Pantoprazole Sodium (Protonix Inj) 40 mg IVP DAILY [facility] Last Admin: 01/07/17 09:09 Dose: 40 mg - Labs Labs: 01/07/17 06:25 01/07/17 06:25 PT 17.7 SECONDS (9.7-12.2) H 12/30/16 10:43 INR 1.6 12/30/16 10:43 APTT 34 SECONDS (21-34) D 12/25/16 06:11 - Constitutional Appears: No Acute Distress, Older Than Stated Age, Cachectic, Chronically Ill - Head Exam Head Exam: NORMAL INSPECTION - Eye Exam Eye Exam: Scleral icterus Additional comments: sluggish. - ENT Exam ENT Exam: Mucous Membranes Dry Additional comments: ETT and OGT. - Neck Exam Neck Exam: Normal Inspection - Respiratory Exam Respiratory Exam: Decreased Breath Sounds, Rales (at the bases. ). absent: Rhonchi, Wheezes, Respiratory Distress (intubated. ), Stridor - Cardiovascular Exam Cardiovascular Exam: Tachycardia, REGULAR RHYTHM. absent: Rubs, Murmur - GI/Abdominal Exam GI & Abdominal Exam: Distended (mild ), Soft, Hypoactive Bowel Sounds - Extremities Exam Extremities Exam: Pedal Edema - Neurological Exam Additional comments: Unresponsive, intubated Assessment and Plan - Assessment and Plan (Free Text) Assessment: 1) Hypoxemic respiratory failure s/p intubation. 2) Septic shock- 3) Ecoli UTI 4) Transaminitis 5) VERONICA on HD 6) Thrombocytopenia 7) Anemia 8) VT Plan: Patient in critical condition. Patient still on 3 pressors, on bicarb drip, and amiodorone. Patient is also on abx. Patient is being followed by multiple specialities. Consider lidocaine if VT not controlled. Unable to change amiodorone to po due to bleeding from the ogt tube. Patient seen, examined, case discussed with Dr Montelongo. <Vaishali Montelongo - Last Filed: 01/07/17 17:36> Objective - Vital Signs/Intake and Output Vital Signs (last 24 hours): Temp Pulse Resp BP Pulse Ox 95 F L 40 L 26 H 30/0 L 52 L 01/07/17 10:20 01/07/17 11:00 01/07/17 11:00 01/07/17 10:38 01/07/17 11:00 Intake and Output: 01/07/17 01/07/17 06:59 18:59 Intake Total 3333.7 1646.9 Output Total 0 10 Balance 3333.7 1636.9 - Labs Labs: 01/07/17 06:25 01/07/17 06:25 PT 17.7 SECONDS (9.7-12.2) H 12/30/16 10:43 INR 1.6 12/30/16 10:43 APTT 34 SECONDS (21-34) D 12/25/16 06:11 Attending/Attestation - Attestation I have personally seen and examined this patient.: Yes I have fully participated in the care of the patient.: Yes I have reviewed all pertinent clinical information, including history, physical exam and plan: Yes Notes (Text): 01/07/17 17:36 Pt intubated guarded condition on multiple pressor support
--- NOTE | 2017-01-07 09:45 | CP.PCM.PN ---
Subjective - Date & Time of Evaluation Date of Evaluation: 01/07/17 Time of Evaluation: 09:42 - Subjective Subjective: s/p dialysis 01/06- able to remove some fluid Remains [id number], vented, on [address] high dose Extremely acidemic despite bicab drip and dialysis BP very low- around 50 by doppler Unable to dialyze due to severe hypotension Objective - Vital Signs/Intake and Output Vital Signs (last 24 hours): Temp Pulse Resp BP Pulse Ox 97.8 F 81 26 H 59/34 L 81 L 01/07/17 08:00 01/07/17 09:31 01/07/17 09:31 01/07/17 09:31 01/07/17 09:31 Intake and Output: 01/07/17 01/07/17 06:59 18:59 Intake Total 3333.7 596.0 Output Total 0 10 Balance 3333.7 586.0 - Medications Medications: Current Medications Acetaminophen (Tylenol 650mg/20.3ml Solution Ud) 650 mg PO Q4 PRN PRN Reason: fever 101 & above Last Admin: 01/05/17 11:14 Dose: 650 mg Emollient Ointment (Vaseline Oint) 5 gm TOP QID PRN Last Admin: 01/06/17 06:06 Dose: 5 gm Azithromycin 500 mg/ Sodium (Chloride) 250 mls @ 250 mls/hr IVPB DAILY [facility] Last Admin: 01/06/17 09:29 Dose: 250 mls/hr Micafungin Sodium 100 mg/ (Sodium Chloride) 100 mls @ 100 mls/hr IV Q24H [facility] Last Admin: 01/06/17 21:30 Dose: 100 mls/hr Norepinephrine Bitartrate 8 mg (/ Sodium Chloride) 258 mls @ 38.7 mls/hr IV .Q6H40M PRN; Protocol; 20 MCG/MIN PRN Reason: TITRATE PER MD ORDER Last Admin: 01/07/17 05:01 Dose: 56.3 mls/hr Dexmedetomidine HCl 200 mcg/ (Sodium Chloride) 50 mls @ 3.25 mls/hr IVPB TITR PRN; Protocol; 0.2 MCG/KG/HR PRN Reason: Agitation Last Titration: 01/03/17 13:00 Dose: 0 mcg/kg/hr Cefepime HCl (Maxipime Iv 2 Gm Premix) 100 mls @ 200 mls/hr IVPB Q24H [facility] Stop: 01/08/17 10:31 Last Admin: 01/06/17 10:59 Dose: 200 mls/hr Vasopressin 40 units/ Sodium (Chloride) 40 mls @ 0.6 mls/hr IV .Q24H [facility]; 0.01 UNITS/MIN PRN Reason: Protocol Last Admin: 01/07/17 09:31 Dose: 2.4 mls/hr Vancomycin/Sodium Chloride (Vancocin) 200 mls @ 133.333 mls/hr IVPB MWF [facility] Last Admin: 01/06/17 20:30 Dose: 133.333 mls/hr Cisatracurium Besylate 100 mg/ (Dextrose) 250 mls @ 30.55 mls/hr IV .Q8H11M [facility] ; 3 MCG/KG/MIN PRN Reason: Protocol Last Titration: 01/07/17 08:24 Dose: 0 mcg/kg/min Phenylephrine HCl 30 mg/ (Dextrose) 253 mls @ 10.12 mls/hr IV .Q24H PRN; Protocol; 20 MCG/MIN PRN Reason: TITRATE PER MD ORDER Last Admin: 01/07/17 08:46 Dose: 91.08 mls/hr Sodium Bicarbonate 150 meq/ (Sodium Chloride) 1,150 mls @ 100 mls/hr IV .[id number] [facility] Last Admin: 01/07/17 08:26 Dose: Not Given Dextrose (Dextrose 10% In Water) 1,000 mls @ 25 mls/hr IV .Q24H [facility] Last Admin: 01/07/17 08:12 Dose: 25 mls/hr Lorazepam (Ativan) 1 mg IVP Q3H PRN PRN Reason: Anxiety Last Admin: 01/05/17 15:20 Dose: 1 mg Nystatin (Nystop Topical Powder) 1 applic TOP BID [facility] Last Admin: 01/06/17 18:08 Dose: 1 appl Pantoprazole Sodium (Protonix Inj) 40 mg IVP DAILY [facility] Last Admin: 01/07/17 09:09 Dose: 40 mg - Labs Labs: 01/07/17 06:25 01/07/17 06:25 PT 17.7 SECONDS (9.7-12.2) H 12/30/16 10:43 INR 1.6 12/30/16 10:43 APTT 34 SECONDS (21-34) D 12/25/16 06:11 - Constitutional Appears: Toxic, In Acute Distress - Head Exam Head Exam: ATRAUMATIC, NORMAL INSPECTION - Neck Exam Neck Exam: Normal Inspection. absent: Tenderness - Respiratory Exam Respiratory Exam: Rhonchi, Respiratory Distress - Cardiovascular Exam Cardiovascular Exam: Tachycardia, +S1 - GI/Abdominal Exam GI & Abdominal Exam: Soft. absent: Tenderness - Extremities Exam Extremities Exam: Normal Inspection. absent: Tenderness - Neurological Exam Neurological Exam: Altered - Skin Skin Exam: Dry, Warm Assessment and Plan (1) CHF (congestive heart failure) Status: Acute (2) Lupus (systemic lupus erythematosus) Status: Acute (3) Pneumonia Status: Acute (4) Sepsis Status: Acute (5) Oliguria Status: Acute (6) VERONICA (acute kidney injury) Status: Acute - Assessment and Plan (Free Text) Plan: To hold dialysis due to hemodynamic instability Poor prognosis- supportive care otherwise
[2017-01-07] MEDS: Cefepime IV 2 gm in Dextrose 100 ML IVPB SCH (09:58)
[2017-01-07 10:29] VITALS: BP 30/0; TEMP 95
[2017-01-07] MEDS ORDERED: Sodium Bicarbonate (8.4%) 50 Meq Syringe ONE (11:05)
--- NOTE | 2017-01-07 11:26 | CP.PCM.PRO ---
<Stephanie Echeverria - Last Filed: 01/07/17 14:06> Pronouncement of Note - Clinical Findings Physical Exam: No Response Verbal/Painful Stimuli, Absent Peripheral Pulses{ Carotid & Femoral}, Absent Heart & Breath Sounds, No Pupillary Light Reflex, Pupils Fixed & Dilated - Pronouncement Time Time of Pronouncement of : 11:16 - Notifications Pronouncement Notifications: Family Notified, [place] Notified - [place] Additional Comments: Pronouncement of at 11:16 AM on 01/07/[address] Walter. Covering Hospitalist Dr. Marsh notified. Absence of pulses, respirations, and pupil response. Unresponsive to painful stimuli. No heart sounds or breath sounds appreciated. Cause of secondary to cardiogenic vs septic shock and renal failure. Son: Chance called and notified. Grievance services offered to the family. Clock And Watch Assembler Sue also notified as well with support provided. <Neil Walter - Last Filed: 01/07/17 14:28> Pronouncement of Note - [place] [id number]
[2017-01-07 12:03] VITALS: PULSE 40; O2SAT 52
--- NOTE | 2017-01-07 12:10 | CP.PCM.PN ---
<Stephanie Echeverria - Last Filed: 01/07/17 16:03> Subjective - Date & Time of Evaluation Date of Evaluation: 01/07/17 Time of Evaluation: 11:05 - Subjective Subjective: CODE BLUE NOTE MARANDA MALDONADO called in the ICU at 11:04AM for patient found in PEA. Moments earlier , son was attempted to be reached regarding patient's condition. Son wanted all appropriate medical measures taken at this time. ACLS protocol initiated with compressions immediately started. Epinephrine administered Pulse check- no pulse Three additional rounds of epinephrine given. At 11:15- Patient found in Asystole; compressions continued. Again patient remained in asystole. Code lucy ended 11:16AM. As written in Pronouncement of note: Pronouncement of at 11:16 AM on 01/07/[address] Walter. Covering Hospitalist Dr. Marsh notified. Absence of pulses, respirations, and pupil response. Unresponsive to painful stimuli. No heart sounds or breath sounds appreciated. Cause of secondary to cardiogenic vs septic shock and renal failure. Son: Chance called and notified. Grievance services offered to the family. Drilling Field Professional Indigo also notified as well with support provided. Objective - Vital Signs/Intake and Output Vital Signs (last 24 hours): Temp Pulse Resp BP Pulse Ox 95 F L 40 L 26 H 30/0 L 52 L 01/07/17 10:20 01/07/17 11:00 01/07/17 11:00 01/07/17 10:38 01/07/17 11:00 Intake and Output: 01/07/17 01/07/17 06:59 18:59 Intake Total 3333.7 1466.9 Output Total 0 10 Balance 3333.7 1456.9 - Medications Medications: Current Medications Acetaminophen (Tylenol 650mg/20.3ml Solution Ud) 650 mg PO Q4 PRN PRN Reason: fever 101 & above Last Admin: 01/05/17 11:14 Dose: 650 mg Emollient Ointment (Vaseline Oint) 5 gm TOP QID PRN Last Admin: 01/06/17 06:06 Dose: 5 gm Azithromycin 500 mg/ Sodium (Chloride) 250 mls @ 250 mls/hr IVPB DAILY [facility] Last Admin: 01/06/17 09:29 Dose: 250 mls/hr Micafungin Sodium 100 mg/ (Sodium Chloride) 100 mls @ 100 mls/hr IV Q24H [facility] Last Admin: 01/06/17 21:30 Dose: 100 mls/hr Norepinephrine Bitartrate 8 mg (/ Sodium Chloride) 258 mls @ 38.7 mls/hr IV .Q6H40M PRN; Protocol; 20 MCG/MIN PRN Reason: TITRATE PER MD ORDER Last Admin: 01/07/17 10:38 Dose: 56.3 mls/hr Dexmedetomidine HCl 200 mcg/ (Sodium Chloride) 50 mls @ 3.25 mls/hr IVPB TITR PRN; Protocol; 0.2 MCG/KG/HR PRN Reason: Agitation Last Titration: 01/03/17 13:00 Dose: 0 mcg/kg/hr Cefepime HCl (Maxipime Iv 2 Gm Premix) 100 mls @ 200 mls/hr IVPB Q24H [facility] Stop: 01/08/17 10:31 Last Admin: 01/07/17 09:58 Dose: 200 mls/hr Vasopressin 40 units/ Sodium (Chloride) 40 mls @ 0.6 mls/hr IV .Q24H [facility]; 0.01 UNITS/MIN PRN Reason: Protocol Last Admin: 01/07/17 09:31 Dose: 2.4 mls/hr Vancomycin/Sodium Chloride (Vancocin) 200 mls @ 133.333 mls/hr IVPB MWF [facility] Last Admin: 01/06/17 20:30 Dose: 133.333 mls/hr Cisatracurium Besylate 100 mg/ (Dextrose) 250 mls @ 30.55 mls/hr IV .Q8H11M [facility] ; 3 MCG/KG/MIN PRN Reason: Protocol Last Admin: 01/07/17 10:37 Dose: Not Given Phenylephrine HCl 30 mg/ (Dextrose) 253 mls @ 10.12 mls/hr IV .Q24H PRN; Protocol; 20 MCG/MIN PRN Reason: TITRATE PER MD ORDER Last Admin: 01/07/17 08:46 Dose: 91.08 mls/hr Sodium Bicarbonate 150 meq/ (Sodium Chloride) 1,150 mls @ 100 mls/hr IV .[id number] [facility] Last Admin: 01/07/17 08:26 Dose: Not Given Dextrose (Dextrose 10% In Water) 1,000 mls @ 25 mls/hr IV .Q24H [facility] Last Admin: 01/07/17 08:12 Dose: 25 mls/hr Lorazepam (Ativan) 1 mg IVP Q3H PRN PRN Reason: Anxiety Last Admin: 01/05/17 15:20 Dose: 1 mg Nystatin (Nystop Topical Powder) 1 applic TOP BID [facility] Last Admin: 01/07/17 09:59 Dose: 1 appl Pantoprazole Sodium (Protonix Inj) 40 mg IVP DAILY [facility] Last Admin: 01/07/17 09:09 Dose: 40 mg - Labs Labs: 01/07/17 06:25 01/07/17 06:25 PT 17.7 SECONDS (9.7-12.2) H 12/30/16 10:43 INR 1.6 12/30/16 10:43 APTT 34 SECONDS (21-34) D 12/25/16 06:11 <Vaishali Montelongo - Last Filed: 01/07/17 17:35> Objective - Vital Signs/Intake and Output Vital Signs (last 24 hours): Temp Pulse Resp BP Pulse Ox 95 F L 40 L 26 H 30/0 L 52 L 01/07/17 10:20 01/07/17 11:00 01/07/17 11:00 01/07/17 10:38 01/07/17 11:00 Intake and Output: 01/07/17 01/07/17 06:59 18:59 Intake Total 3333.7 1646.9 Output Total 0 10 Balance 3333.7 1636.9 - Labs Labs: 01/07/17 06:25 01/07/17 06:25 PT 17.7 SECONDS (9.7-12.2) H 12/30/16 10:43 INR 1.6 12/30/16 10:43 APTT 34 SECONDS (21-34) D 12/25/16 06:11 Attending/Attestation - Attestation I have personally seen and examined this patient.: Yes I have fully participated in the care of the patient.: Yes I have reviewed all pertinent clinical information, including history, physical exam and plan: Yes Notes (Text): 01/07/17 17:35 Pt after ACLS administered
--- NOTE | 2017-01-07 13:21 | RAD ---
HISTORY: intubated COMPARISON: 01/06/2017 FINDINGS: LUNGS: The diffuse reticular nodular opacities are similar. An underlying interstitial lung disease process is suspect. Additional history is available. PLEURA: Small left pleural effusion. There is interval right apical pleural thickening noted in the short interval time frame CARDIOVASCULAR: Cardiomegaly. AICD device in place. Right PICC line tip at superior vena cava -right atrial junction OSSEOUS STRUCTURES: No significant abnormalities. VISUALIZED UPPER ABDOMEN: Feeding tube coursing along the stomach OTHER FINDINGS: Endotracheal tube tip approximately 2.5 cm from the isauro IMPRESSION: Diffuse and extensive reticulonodular lung disease pathology suggested or correlation with any known underlying interstitial lung disease is recommended. Interval right apical pleural thickening - reason unclear. A right central line insertion not an interval change
[2017-01-07] MEDS ORDERED: Albuterol-Ipratrop 3 mg / 0.5 (3 ml) UD INH SCH (14:00)
== END 2017-01-07 11:16 | DRG 584 ==
LOC: C.ER 12:37 → C.9E 17:33 → C.6T 18:11 → C.9I 12-24 14:16
PROVIDERS: ADMIT Internal Medicine Nephrology; ATTEND Internal Medicine Nephrology
PROC: 5A1D60Z (ICD-10-PCS; 2016-12-22)
PROC: 5A1955Z Respiratory Ventilation, Greater than 96 Consecutive Hours (ICD-10-PCS; principal; 2016-12-24)
PROC: 0BH17EZ Insertion of Endotracheal Airway into Trachea, Via Natural or Artificial Opening (ICD-10-PCS; 2016-12-24)
DX: A41.9 Sepsis, unspecified organism (principal); J69.0 Pneumonitis due to inhalation of food and vomit; J96.01 Acute respiratory failure with hypoxia; N17.0 Acute kidney failure with tubular necrosis; I50.23 Acute on chronic systolic (congestive) heart failure; D69.59 Other secondary thrombocytopenia; I42.0 Dilated cardiomyopathy; I13.0 Hypertensive heart and chronic kidney disease with heart failure and stage 1 through stage 4 chronic kidney disease, or unspecified chronic kidney disease; N18.9 Chronic kidney disease, unspecified; E87.6 Hypokalemia; N39.0 Urinary tract infection, site not specified; I42.9 Cardiomyopathy, unspecified; M32.9 Systemic lupus erythematosus, unspecified; I27.2 Other secondary pulmonary hypertension; I34.0 Nonrheumatic mitral (valve) insufficiency; N28.1 Cyst of kidney, acquired; Z95.810 Presence of automatic (implantable) cardiac defibrillator; Z99.2 Dependence on renal dialysis; I69.354 Hemiplegia and hemiparesis following cerebral infarction affecting left non-dominant side